=== PATIENT | male | born 1940 | race Caucasian/White ===

== ENCOUNTER 2016-08-15 11:42 | Inpatient (IN) | payer OTHER, MEDICARE ==
--- NOTE | 2016-08-15 13:05 | PDOC ---
History of Present Illness - General History Source: Patient, Family (daughter) Exam Limitations: No Limitations - History of Present Illness Initial Comments: 08/15/16 15:49 The patient is a 76-year-old male, accompanied by daughter, with a significant past medical history of kidney failure, who presents to the emergency department with pain and redness of the left toes. The patient reports he is experiencing pain and redness in his main left toe and left second toe. The patient is concerned about an infection of the toes. As per daughter, the patient is on dialysis 3x per week. The patient denies chest pain, shortness of breath, headache and dizziness. The patient denies fever, chills, nausea, vomit, diarrhea and constipation. The patient urinary complaints. The patient denies trauma. Allergies: NKDA Past surgical history: Angioplasty Social history: Denies smoking, ETOH, or substance use. 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 Martinez <Anamika Mendiola - Last Filed: 08/15/16 15:49> <Volodymyr Parada - Last Filed: 08/15/16 17:09> - General Chief Complaint: Redness To Affected Area Stated Complaint: LT TOE INFECTION Past History <Anamika Mendiola - Last Filed: 08/15/16 15:49> - Past Medical History Cancer: Yes (COLON AND PROSTATE) Cardiac Disorders: Yes (A.FIB) Dialysis: Yes (M-W-F,RT ARM FISTULA) HTN: Yes Psychiatric Problems: Yes (ANXEITY) - Surgical History Abdominal Surgery: Yes (COLON CA) - Psycho/Social/Smoking Cessation Hx Anxiety: No Suicidal Ideation: No Smoking History: Never smoked Have you smoked in the past 12 months: No Information on smoking cessation initiated: No Hx Alcohol Use: No Drug/Substance Use Hx: No Substance Use Type: None <Volodymyr Parada - Last Filed: 08/15/16 17:09> - Past Medical History Allergies/Adverse Reactions: Allergies Allergy/AdvReac Type Severity Reaction Status Date / Time No Known Allergies Allergy Verified 08/15/16 11:51 Home Medications: Ambulatory Orders Alprazolam [Xanax] 0.5 mg PO BID 08/15/16 Aspirin [ASA -] 81 mg PO DAILY 08/15/16 Atenolol [Tenormin -] 25 mg PO DAILY 08/15/16 Docusate Sodium [Colace -] 100 mg PO DAILY 08/15/16 Oxycodone HCl/Acetaminophen [Percocet 5-325 mg Tablet] 1 tab PO Q6H 08/15/16 Sevelamer Carbonate [Renvela] 800 mg PO TID 08/15/16 Trazodone HCl 50 mg PO HS 08/15/16 Vit B Cmplx 3/FA/Vit C/Biotin [Nephro-Louie Rx Tablet] 1 each PO DAILY 08/15/16 Zolpidem Tartrate [Ambien] 10 mg PO HS 08/15/16 Review of Systems - Review of Systems Comments:: 08/15/16 15:50 CONSTITUTIONAL: Absent: fever, chills, diaphoresis, generalized weakness, malaise, loss of appetite HEENT: Absent: rhinorrhea, nasal congestion, throat pain, throat swelling, difficulty swallowing, mouth swelling, ear pain, eye pain, visual changes CARDIOVASCULAR: Absent: chest pain, syncope, palpitations, irregular heart rate, lightheadedness , peripheral edema RESPIRATORY: Absent: cough, shortness of breath, dyspnea with exertion, orthopnea, wheezing, stridor, hemoptysis GASTROINTESTINAL: Absent: abdominal pain, abdominal distension, nausea, vomiting, diarrhea, constipation, melena, hematochezia GENITOURINARY: Absent: dysuria, frequency, urgency, hesitancy, hematuria, flank pain, genital pain MUSCULOSKELETAL: Present: (+) Left toe pain Absent: arthralgia, joint swelling SKIN: Present: (+) Left toe redness Absent: rash, itching, pallor HEMATOLOGIC/IMMUNOLOGIC: Absent: easy bleeding, easy bruising, lymphadenopathy, frequent infections ENDOCRINE: Absent: unexplained weight gain, unexplained weight loss, heat intolerance, cold intolerance NEUROLOGIC: Absent: headache, focal weakness or paresthesias, dizziness, unsteady gait, seizure, mental status changes, bladder or bowel incontinence PSYCHIATRIC: Absent: anxiety, depression, suicidal or homicidal ideation, hallucinations. <Anamika Mendiola - Last Filed: 08/15/16 15:49> *Physical Exam - Vital Signs Last Vital Signs Temp Pulse Resp BP Pulse Ox 97.7 F 88 18 135/55 100 08/15/16 11:52 08/15/16 11:52 08/15/16 11:52 08/15/16 11:52 08/15/16 11:52 - Physical Exam Comments: 08/15/16 15:50 GENERAL: Well developed, well nourished. Awake and alert. In no acute distress. HEENT: Normocephalic, atraumatic. PERRLA, EOMI. No conjunctival pallor. Sclera are non- icteric. Moist mucous membranes. Oropharynx is clear. NECK: Supple. Full ROM. No JVD. Carotid pulses 2+ and symmetric, without bruits. No thyromegaly. No lymphadenopathy. CARDIOVASCULAR: Regular rate and rhythm. No murmurs, rubs, or gallops. PULMONARY: No evidence of respiratory distress. Lungs clear to auscultation bilaterally. No wheezing, rales or rhonchi. ABDOMINAL: Soft. Non-tender. Non-distended. No rebound or guarding. No organomegaly. Normoactive bowel sounds. MUSCULOSKELETAL Normal range of motion at all joints. No bony deformities or tenderness. No CVA tenderness. EXTREMITIES: (+) Left second toe is ischemic rubor. Decreased sensation and decreased movement of the left toes. (+) Weak dorsalis pedis pulse. Weak popliteal pulse. Stronger femoral pulse. Right side is unremarkable. No cyanosis. No clubbing. No edema. No calf tenderness. SKIN: Warm and dry. Normal capillary refill. No rashes. No jaundice. NEUROLOGICAL: Alert, awake, appropriate. Cranial nerves 2-12 intact. No deficits to light touch and temperature in face, upper extremities and lower extremities. No motor deficits in the in face, upper extremities and lower extremities. Normoreflexic in the upper and lower extremities. Normal speech. Toes are downgoing bilaterally. Gait is normal without ataxia. PSYCHIATRIC: Cooperative. Good eye contact. Appropriate mood and affect. <Anamika Mendiola - Last Filed: 08/15/16 15:49> - Vital Signs Last Vital Signs Temp Pulse Resp BP Pulse Ox 97.7 F 88 18 135/55 100 08/15/16 11:52 08/15/16 11:52 08/15/16 11:52 08/15/16 11:52 08/15/16 11:52 <Volodymyr Parada - Last Filed: 08/15/16 17:09> ED Treatment Course - LABORATORY CBC & Chemistry Diagram: 08/15/16 13:24 08/15/16 13:24 - ADDITIONAL ORDERS Additional order review: Laboratory Results 08/15/16 08/15/16 08/15/16 13:42 13:24 13:24 INR 1.06 PTT (Actin FS) 35.0 H Sodium 137 Potassium 4.2 Chloride 98 Carbon Dioxide 28 Anion Gap 11 BUN 21 H Creatinine 2.9 H Creat Clearance w eGFR 21.15 Random Glucose 86 Calcium 9.1 Total Bilirubin 0.6 AST 31 ALT 22 Alkaline Phosphatase 96 Total Protein 6.8 Albumin 3.5 Blood Type A POSITIVE Antibody Screen Negative Spec Expiration Date 08/15/16 13:24 RBC 4.39 MCV 96.1 H MCHC 31.9 L RDW 16.8 H MPV 10.0 Neutrophils % 71.9 Lymphocytes % 15.0 Monocytes % 11.7 H Eosinophils % 1.0 Basophils % 0.4 <Anamika Mendiola - Last Filed: 08/15/16 15:49> - LABORATORY CBC & Chemistry Diagram: 08/15/16 13:24 08/15/16 13:24 <Volodymyr Parada - Last Filed: 08/15/16 17:09> Medical Decision Making - Medical Decision Making 08/15/16 17:[address] Martinez who wants the patient on heparin and he will see the patient next week. <Volodymyr Parada - Last Filed: 08/15/16 17:09> *DC/Admit/Observation/Transfer - Attestations Scribe Attestion: 08/15/16 15:50 Documentation prepared by Anamika Mendiola, acting as manager medical affairs for Volodymyr Parada MD. <Anamika Mendiola - Last Filed: 08/15/16 15:49> - Discharge Dispostion Admit: Yes <Volodymyr Parada - Last Filed: 08/15/16 17:09> Diagnosis at time of Disposition: Ischemia of left lower extremity - Discharge Dispostion Condition at time of disposition: Guarded - Referrals Referrals: Gallo Slater [Primary Care Provider] -
[2016-08-15 13:47] LABS: BASOPHIL 0.4 % (0-2.0); MCH 30.6 pg (25.7-33.7); MCHC 31.9 g/dl (32.0-35.9); MEAN CELL VOLUME 96.1 fl (80-96); NEUTROPHILS 71.9 % (42.8-82.8); PLATELET COUNT 68 K/MM3 (134-434); RDW 16.8 % (11.9-15.9); WHITE BLOOD COUNT 5.2 K/mm3 (4.0-10.0)
[2016-08-15 14:10] LABS: ALBUMIN 3.5 g/dl (3.4-5.0); BILIRUBIN,TOTAL 0.6 mg/dL (0.2-1.0); CALCIUM 9.1 mg/dL (8.5-10.1); CREATININE 2.9 mg/dL (0.7-1.3); TOT PROT 6.8 g/dl (6.4-8.2)
[2016-08-15 14:50] LABS: INR 1.06 (0.82-1.09); PROTHROMBIN TIME (PATIENT) 11.7 SEC (9.98-11.88)
--- NOTE | 2016-08-15 16:54 | PN ---
Progress Note (short form) - Note Progress Note: Renal Consult for ESRD on HD This is a 76 year old Gentleman with PMhx of ESRD on HD (x 1 year), Hypertension , Renal Osteodytrophy who presents with erythema and tenderness of his 1st and 2nd digit on the right food and swelling in his access arm. Pt states that his toes have been tender and swollen for 5-7 days. He received IV Abx in dialysis today but no antibiotics prior to that. Pt also reported a mechanical fall earlier this week and tenderness in his should on the same side of his AVF. He noted that his right arm had been swollen for several days and that he experienced prolonged bleeding today after dialysis. Denies any fever or chills. Apetite is good. No N/V/D. Primary Consulting Sales Executive is Dr. Kenyon. PMhx: as above Allergies: NKDA Family Hx: NC Social Hx: No T/A/D ROS: As per HPI Home Meds: Medication Instructions Recorded Alprazolam [Xanax] 0.5 mg PO BID 08/15/16 Aspirin [ASA -] 81 mg PO DAILY 08/15/16 Atenolol [Tenormin -] 25 mg PO DAILY 08/15/16 Docusate Sodium [Colace -] 100 mg PO DAILY 08/15/16 Oxycodone HCl/Acetaminophen 1 tab PO Q6H 08/15/16 [Percocet 5-325 mg Tablet] Sevelamer Carbonate [Renvela] 800 mg PO TID 08/15/16 Trazodone HCl 50 mg PO HS 08/15/16 Vit B Cmplx 3/FA/Vit C/Biotin 1 each PO DAILY 08/15/16 [Nephro-Louie Rx Tablet] Zolpidem Tartrate [Ambien] 10 mg PO HS 08/15/16 Vital Signs Temperature 97.7 F 08/15/16 11:52 Pulse Rate 88 08/15/16 11:52 Respiratory Rate 18 08/15/16 11:52 Blood Pressure 135/55 08/15/16 11:52 O2 Sat by Pulse Oximetry (%) 100 08/15/16 11:52 Intake & Output 08/12/16 08/13/16 08/14/16 08/15/16 23:59 23:59 23:59 23:59 Weight 175 lb Gen: NAD, awake and alert HEENT: NC/AT, MMM, No JVD CVS: RRR, No M/R Lungs: CTA, no rales or wheeze Abd: Soft NT/ND Ext: Right arm swelling to forearm with hematoma on right shoulder. Trace edema in B/L LE. + erythema on 1st, 2nd and 3rd digits on right foot. peripheal pules weak. Access: Right Arm AVF + thrill and bruit CBC, BMP 08/15/16 13:24 08/15/16 13:24 A/P 76 year old Gentleman with PMhx of ESRD on HD (x 1 year), Hypertension, Renal Osteodytrophy who presents with erythema and tenderness of his 1st and 2nd digit on the right food and swelling in his access arm #LE cellulitis/PVD Doppler US of the LE showed atherosclerotic plaque and stenosis of left superficial femoral artery Vascular Sx eval and traditional vs. CT Angiogram of the LE as per vascular pain control S/p Vanco 1g IV s/p dialysis today #Right ARM swelling/AVF with prolonged bleeding Check Doppler US of upper Ext and AVF r/o stenosis/thrombosis Check x-ray of right shoulder given recent fall #ESRD on Hd completed full HD today as outpatient no indication for further treatment today if pt gets contrast exposure will need further dialysis to preserve renal function #Thrombocytopenia Repeat cbc no indication for platelet transfusion Thank you Will follow Armen Machado DO
[2016-08-15] MEDS ORDERED: HEPARIN - 25,000 UNIT in SODIUM CHLORIDE 495 ML IV SCH (17:15)
--- NOTE | 2016-08-15 17:36 | HP ---
CHIEF COMPLAINT: PCP: Dr. Gallo Slater ([phone]) HISTORY OF PRESENT ILLNESS: This is a 76 year old male resident of the [facility] with a history of HTN, colon ca s/p resection, Afib (taken off of AC by PCP 2 months ago), ESRD on HD M/W/F, and PAD who presented to the ED complaining of left arm pain and left 1st and 2nd toe pain following a fall 10 days ago. He denies fevers/chills or any other systemic symptoms. Toe infection is suspected and he was given Vancomycin with HD today. He denies foot pain or leg pain, and he denies cold/numb sensation. He reports occasional cramping with walking. 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 Smoking: None Alcohol: None Family History: Allergies No Known Allergies Allergy (Verified 08/15/16 11:51) HOME MEDICATIONS: Medication Instructions Recorded Alprazolam [Xanax] 0.5 mg PO BID 08/15/16 Aspirin [ASA -] 81 mg PO DAILY 08/15/16 Atenolol [Tenormin -] 25 mg PO DAILY 08/15/16 Docusate Sodium [Colace -] 100 mg PO DAILY 08/15/16 Oxycodone HCl/Acetaminophen 1 tab PO Q6H 08/15/16 [Percocet 5-325 mg Tablet] Sevelamer Carbonate [Renvela] 800 mg PO TID 08/15/16 Trazodone HCl 50 mg PO HS 08/15/16 Vit B Cmplx 3/FA/Vit C/Biotin 1 each PO DAILY 08/15/16 [Nephro-Louie Rx Tablet] Zolpidem Tartrate [Ambien] 10 mg PO HS 08/15/16 REVIEW OF SYSTEMS CONSTITUTIONAL: Absent: fever, chills, diaphoresis, generalized weakness, malaise, loss of appetite, weight change HEENT: Absent: rhinorrhea, nasal congestion, throat pain, throat swelling, difficulty swallowing, mouth swelling, ear pain, eye pain, visual changes CARDIOVASCULAR: Exercise tolerance 2 blocks Absent: chest pain, syncope, palpitations, lightheadedness, peripheral edema RESPIRATORY: Absent: cough, shortness of breath, dyspnea with exertion, orthopnea, wheezing, stridor, hemoptysis GASTROINTESTINAL: Absent: abdominal pain, abdominal distension, nausea, vomiting, diarrhea, constipation, melena, hematochezia GENITOURINARY: Absent: dysuria, frequency, urgency, hesitancy, hematuria, flank pain, genital pain MUSCULOSKELETAL: Absent: myalgia, arthralgia, joint swelling, back pain, neck pain SKIN: Absent: rash, itching, pallor HEMATOLOGIC/IMMUNOLOGIC: Absent: easy bleeding, easy bruising, lymphadenopathy, frequent infections ENDOCRINE: Absent: unexplained weight gain, unexplained weight loss, heat intolerance, cold intolerance NEUROLOGIC: Absent: headache, focal weakness or paresthesias, dizziness, unsteady gait, seizure, mental status changes, bladder or bowel incontinence PSYCHIATRIC: Absent: anxiety, depression, suicidal or homicidal ideation, hallucinations. PHYSICAL EXAMINATION Vital Signs - 24 hr 08/15/16 11:52 Temperature 97.7 F Pulse Rate 88 Respiratory 18 Rate Blood Pressure 135/55 O2 Sat by Pulse 100 Oximetry (%) GENERAL: Awake, alert, and fully oriented, in no acute distress. EYES: Pupils equal, round and reactive to light, extraocular movements intact, sclera anicteric, conjunctiva clear. No lid lag. EARS, NOSE, THROAT: Ears normal, nares patent, oropharynx clear without exudates. Moist mucous membranes. NECK: Normal range of motion, supple without lymphadenopathy, JVD, or masses. LUNGS: Breath sounds equal, clear to auscultation bilaterally. No wheezes, and no crackles. No accessory muscle use. HEART: Irregular rhythm, normal S1 and S2 without murmur, rub or gallop. ABDOMEN: Soft, nontender, not distended, normoactive bowel sounds, no guarding, no rebound, no masses. No hepatomegaly or splenomegaly. MUSCULOSKELETAL: Limited ROM of right arm due to pain. UPPER EXTREMITIES: 2+ pulses, warm, well-perfused. No cyanosis. No clubbing. Cap refill <2 seconds. No peripheral edema. RUE AVF, +bruit, +thrill. LOWER EXTREMITIES: Warm, well-perfused. No calf tenderness. LLE: 2+ pitting pedal edema. Pulse trace palpable. 1st and second toes erythematous and swollen. Sensation intact. NEUROLOGICAL: Cranial nerves II-XII intact. Normal speech. Normal gait. PSYCHIATRIC: Cooperative. Good eye contact. Appropriate mood and affect. SKIN: Warm, dry, normal turgor, no rashes or lesions noted. Laboratory Results - last 24 hr 08/15/16 08/15/16 08/15/16 13:24 13:24 13:24 WBC 5.2 RBC 4.39 Hgb 13.4 Hct 42.2 MCV 96.1 H MCHC 31.9 L RDW 16.8 H Plt Count 68 L MPV 10.0 Neutrophils % 71.9 Lymphocytes % 15.0 Monocytes % 11.7 H Eosinophils % 1.0 Basophils % 0.4 INR 1.06 PTT (Actin FS) 35.0 H Sodium 137 Potassium 4.2 Chloride 98 Carbon Dioxide 28 Anion Gap 11 BUN 21 H Creatinine 2.9 H Creat Clearance w eGFR 21.15 Random Glucose 86 Calcium 9.1 Total Bilirubin 0.6 AST 31 ALT 22 Alkaline Phosphatase 96 Total Protein 6.8 Albumin 3.5 Blood Type Antibody Screen Spec Expiration Date 08/15/16 13:42 WBC RBC Hgb Hct MCV MCHC RDW Plt Count MPV Neutrophils % Lymphocytes % Monocytes % Eosinophils % Basophils % INR PTT (Actin FS) Sodium Potassium Chloride Carbon Dioxide Anion Gap BUN Creatinine Creat Clearance w eGFR Random Glucose Calcium Total Bilirubin AST ALT Alkaline Phosphatase Total Protein Albumin Blood Type A POSITIVE Antibody Screen Negative Spec Expiration Date ASSESSMENT/PLAN: 76 year old male with severe PAD and left foot pain, suspect infection of 1st and 2nd toes. Problem List - Problem (1) Ischemic leg Assessment/Plan: -Extremity warm and pulses trace palpable, lactic acid is within normal limits at 1.3 -Plt are 68K, do not start heparin or any other antiplatelets/anticoagulants per vascular surgery -Empiric antibiotics for possible infection; Ceftriaxone 1g daily, received Vancomycin with HD today -Pain control -Duplex arterial scan reviewed: bilateral diffuse atheromatous plaque with intimal hyperplasia and atherosclerotic vascular disease, L>R with stenosis suspected in the region of the mid left superficial femoral artery -Discussed with Dr. Martinez: he is away until Thursday. Recommends starting antibiotics, controlling pain. Ischemia is chronic and it is unlikely any acute intervention will be needed. If anything is urgently needed, please call Dr. Celeste Mcknight. -Podiatry evaluation Code(s): I99.8 - OTHER DISORDER OF CIRCULATORY SYSTEM (2) Humeral surgical neck fracture Assessment/Plan: -Sling -Pain control (on oxycodone 5mg as outpatient without relief; will increase to 10mg) -Will consult orthopedics, but expect non-operative management Code(s): S42.213A - UNSP DISP FX OF SURGICAL NECK OF UNSP HUMERUS, INIT (3) ESRD (end stage renal disease) Assessment/Plan: -Next dialysis Thursday -Renal dose medications -Continue Renvela, Nephrovite -Renal following Code(s): N18.6 - END STAGE RENAL DISEASE (4) HTN (hypertension) Assessment/Plan: -At goal -Continue Tenormin Code(s): I10 - ESSENTIAL (PRIMARY) HYPERTENSION (5) Thrombocytopenia Assessment/Plan: -No baseline available -No history of same per patient, but he does note that he had prolonged bleeding after HD today and required extended application of pressure to control it -Follow CBC Code(s): D69.6 - THROMBOCYTOPENIA, UNSPECIFIED (6) DVT prophylaxis Assessment/Plan: -No chemical ppx (thrombocytopenia) -No mechanical ppx (limb ischemia) -Ambulation Code(s): LHS2462 - Visit type - Emergency Visit Emergency Visit: Yes ED Registration Date: 08/15/16 Care time: The patient presented to the Emergency Department on the above date and was hospitalized for further evaluation of their emergent condition. - New Patient This patient is new to me today: Yes Date on this admission: 08/16/16 - Critical Care Critical Care patient: No
[2016-08-15] MEDS ORDERED: CEFTRIAXONE 1 GM in DEXTROSE 5%-WATER - 50 ML IVPB SCH (17:45)
[2016-08-15] MEDS ORDERED: OXYCODONE/APAP 5/325MG COMBO TABLET PO SCH (17:45)
[2016-08-15] MEDS ORDERED: CEFTRIAXONE 50 ML ONE (19:01)
[2016-08-15] MEDS: cefTRIAXone 1 GM/50 ML BAG (PRE-DOCKED) IVPB SCH (19:14)
[2016-08-15] MEDS: ALPRAZolam 0.25 MG TABLET PO SCH (21:31)
[2016-08-15] MEDS: traZODone HCL 50 MG TABLET (FP) PO SCH (21:31)
[2016-08-15] MEDS ORDERED: ZOLPIDEM TARTRATE 5 MG TABLET PO PRN (22:00)
[2016-08-15 23:43] VITALS: BMI 23.8
[2016-08-16] MEDS ORDERED: oxyCODONE HCL 5 MG TABLET PO SCH
[2016-08-16] MEDS: ACETAMINOPHEN 325 MG TABLET (FP) PO SCH ×5 (00:28→23:03)
[2016-08-16] MEDS: oxyCODONE HCL 5 MG TABLET PO SCH ×5 (00:28→23:02)
[2016-08-16] MEDS: DOCUSATE SODIUM 100 MG CAPSULE (FP) PO SCH (09:08)
[2016-08-16] MEDS: VITAMIN B COMP W-C 1 EA TABLET PO SCH (09:08)
[2016-08-16] MEDS: ALPRAZolam 0.25 MG TABLET PO SCH ×2 (09:08→21:48)
[2016-08-16] MEDS: cefTRIAXone 1 GM/50 ML BAG (PRE-DOCKED) IVPB SCH (09:08)
[2016-08-16] MEDS: ATENOLOL 25 MG TABLET (FP) PO SCH (09:08)
[2016-08-16] MEDS: SEVELAMER CARBONATE 800 MG TAB (FP) PO SCH ×3 (09:08→18:27)
--- NOTE | 2016-08-16 09:31 | PN ---
Progress Note (short form) - Note Progress Note: Pt seen and examined. He is a 76 yo R hand dom Male, 10 days s/p fall. Complains of mild pain right shoulder. In sling. RUE is NVI. Full ROM of the c-spine, elbow, forearm, wrist, fingers. No deformity at the shoulder, no sig swelling or ecchymosis Xrays show a nondisplaced fracture of the right proximal humerus, at the surgical neck. Imp As above Rec No surgery necessary. Rec sling, no weight bearing, should do ROM exercises for the elbow, wrist , fingers. not jazmin shoulder. No orthopedic reason to be in the hospital. Should DC today and f/u as an out pt in 2 weeks.
[2016-08-16 10:39] LABS: BASOPHIL 0.5 % (0-2.0); MCH 31.2 pg (25.7-33.7); MCHC 32.2 g/dl (32.0-35.9); MEAN CELL VOLUME 96.8 fl (80-96); MEAN PLT VOLUME 9.5 fl (7.5-11.1); PLATELET COUNT 62 K/MM3 (134-434); WHITE BLOOD COUNT 3.9 K/mm3 (4.0-10.0)
[2016-08-16 11:18] LABS: BILIRUBIN,TOTAL 0.5 mg/dL (0.2-1.0); CALCIUM 9.4 mg/dL (8.5-10.1); CREATININE 4.4 mg/dL (0.7-1.3); MAGNESIUM 2.4 mg/dL (1.8-2.4); PHOSPHOROUS 4.2 mg/dL (2.5-4.9); TOT PROT 5.7 g/dl (6.4-8.2)
--- NOTE | 2016-08-16 13:07 | PN ---
Progress Note (short form) - Note Progress Note: Renal Follow up for ESRD on HD Pt seen and examined at the bedside No acute complaints no sob, chest pain, fever or chills Vital Signs Temperature 97.6 F 08/16/16 06:00 Pulse Rate 96 H 08/16/16 06:00 Respiratory Rate 20 08/16/16 06:00 Blood Pressure 148/85 08/16/16 06:00 O2 Sat by Pulse Oximetry (%) 98 08/15/16 21:00 Intake & Output 08/13/16 08/14/16 08/15/16 08/16/16 23:59 23:59 23:59 23:59 Intake Total 300 500 Balance 300 500 Weight 161 lb Gen: NAD, awake and alert HEENT: NC/AT, MMM, No JVD CVS: RRR, No M/R Lungs: CTA, no rales or wheeze Abd: Soft NT/ND Ext: Rigtht arm swelling improved Access: Right Arm AVF + thrill and bruit CBC, BMP 08/16/16 10:15 08/16/16 10:15 Current Medications Acetaminophen (Tylenol -) 325 mg PO Q6HPO [facility] Last Admin: 08/16/16 12:37 Dose: 325 mg Alprazolam (Xanax -) 0.5 mg PO BID [facility] Last Admin: 08/16/16 09:08 Dose: 0.5 mg Atenolol (Tenormin -) 25 mg PO DAILY [facility] Last Admin: 08/16/16 09:08 Dose: 25 mg Ceftriaxone Sodium (Rocephin 1gm Ivpb (Pre-Docked)) 1 gm IVPB DAILY [facility] Last Admin: 08/16/16 09:08 Dose: 1 gm Docusate Sodium (Colace -) 100 mg PO DAILY [facility] Last Admin: 08/16/16 09:08 Dose: 100 mg Multivit/Ca Carb/B Cmplx/FA/Prenat (Nephro-Louie -) 1 tablet PO DAILY [facility] Last Admin: 08/16/16 09:08 Dose: 1 tablet Oxycodone HCl (Roxicodone -) 10 mg PO Q6HPO [facility] Last Admin: 08/16/16 12:36 Dose: 10 mg Polyethylene Glycol (Miralax (For Daily Use) -) 17 gm PO DAILY [facility] Sevelamer Carbonate (Renvela -) 800 mg PO TIDCM [facility] Last Admin: 08/16/16 12:38 Dose: 800 mg Trazodone HCl (Desyrel -) 50 mg PO HS [facility] Last Admin: 08/15/16 21:31 Dose: 50 mg Zolpidem Tartrate (Ambien -) 5 mg PO HS PRN A/P 76 year old Gentleman with PMhx of ESRD on HD (x 1 year), Hypertension, Renal Osteodytrophy who presents with erythema and tenderness of his 1st and 2nd digit on the right food and swelling in his access arm #LE cellulitis/PVD Doppler US of the LE showed atherosclerotic plaque and stenosis of left superficial femoral artery Vascular Sx eval traditional vs. 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
[2016-08-16] MEDS: POLYETHYLENE GLYCOL 3350 119 GM BTL PO SCH (14:30)
--- NOTE | 2016-08-16 15:33 | PN ---
Physical Exam: SUBJECTIVE: Patient seen and examined. He is c/o he has no had a BM in4 days. He denies fever, chills. OBJECTIVE: Vital Signs Period Temp Pulse Resp BP Sys/Medina Pulse Ox Last 24 Hr 97.5 F-98.1 F 78-99 18-20 114-148/56-85 97-98 PE Neuro: alert, awake, cn 2-12intact Pulm: CTAB CV: s1 s2 irregular rate, + 3/6 systolic murmur Abd: s nt + bs Ext: RUE AVF + thrill, RUE in sling, non tender, L foot great toe bright erythema, 2nd digit ischemia, + DP pulse, foot is warm Laboratory Results - last 24 hr 08/15/16 08/16/16 08/16/16 22:00 10:15 10:15 WBC 3.9 L RBC 4.10 Hgb 12.8 Hct 39.7 MCV 96.8 H MCHC 32.2 RDW 17.0 H Plt Count 62 L MPV 9.5 Neutrophils % 71.0 Lymphocytes % 17.6 Monocytes % 9.9 Eosinophils % 1.0 Basophils % 0.5 Sodium 135 L Potassium 3.8 Chloride 100 Carbon Dioxide 28 Anion Gap 7 L BUN 35 H D Creatinine 4.4 H D Creat Clearance w eGFR 13.07 Random Glucose 136 H D Calcium 9.4 Phosphorus 4.2 Magnesium 2.4 Total Bilirubin 0.5 AST 14 L D ALT 18 Alkaline Phosphatase 79 Total Protein 5.7 L Albumin 3.0 L Blood Type A POSITIVE Active Medications Generic Name Dose Route Start Last Admin Trade Name Freq PRN Reason Stop Dose Admin Acetaminophen 325 mg 08/16/16 00:00 08/16/16 12:37 Tylenol - PO 325 mg Q6HPO MARCUS Administration Alprazolam 0.5 mg 08/15/16 22:00 08/16/16 09:08 Xanax - PO 0.5 mg BID MARCUS Administration Atenolol 25 mg 08/16/16 10:00 08/16/16 09:08 Tenormin - PO 25 mg DAILY MARCUS Administration Ceftriaxone Sodium 1 gm 08/15/16 18:00 08/16/16 09:08 Rocephin 1gm Ivpb (Pre-Docked) IVPB 1 gm DAILY MARCUS Administration Docusate Sodium 100 mg 08/16/16 10:00 08/16/16 09:08 Colace - PO 100 mg DAILY MARCUS Administration Multivit/Ca Carb/B Cmplx/FA/Prenat 1 tablet 08/16/16 10:00 08/16/16 09:08 Nephro-Louie - PO 1 tablet DAILY MARCUS Administration Oxycodone HCl 10 mg 08/16/16 00:00 08/16/16 12:36 Roxicodone - PO 10 mg Q6HPO MARCUS Administration Polyethylene Glycol 17 gm 08/16/16 13:00 08/16/16 14:30 Miralax (For Daily Use) - PO 17 gm DAILY MARCUS Administration Sevelamer Carbonate 800 mg 08/16/16 08:00 08/16/16 12:38 Renvela - PO 800 mg TIDCM MARCUS Administration Trazodone HCl 50 mg 08/15/16 22:00 08/15/16 21:31 Desyrel - PO 50 mg HS MARCUS Administration Zolpidem Tartrate 5 mg 08/15/16 22:00 Ambien - PO HS PRN Imaging: -Duplex arterial scan reviewed: bilateral diffuse atheromatous plaque with intimal hyperplasia and atherosclerotic vascular disease, L>R with stenosis suspected in the region of the mid left superficial femoral artery Assessment: 76 year old male with severe PAD and left foot pain, suspect infection of 1st and 2nd toes. Plan: 1. Ischemic leg/LE cellulitis - L superficial femoral artery stenosis on duplex - Podiatry to see pt tomorrow - ID to see pt - Continue ceftriaxone - pt denies pain 2. Humeral surgical neck fracture - Seen by ortho, no surgical intervention, outpt follow up in 2 weeks - Maintain sling - ROM exercises to wrist/elbow/fingers; not the shoulder - Pain control (on oxycodone 5mg as outpatient without relief; will increase to 10mg) 3. Chronic ESRD HD MWF - Check vanco level in am; s/p vanco yesterday - HD Thursday - Continue Renvela, Nephrovite - Renal following 4. HTN - At goal - Continue Tenormin 5. Thrombocytopenia - Plts trace decrease, will monitor, as of now no signs of bleeding - No history of same per patient, but he does note that he had prolonged bleeding after HD today and required extended application of pressure to control it - Follow CBC 6. DVT prophylaxis - No chemical ppx (thrombocytopenia) - No mechanical ppx (limb ischemia) Visit type - Emergency Visit Emergency Visit: Yes ED Registration Date: 08/15/16 Care time: The patient presented to the Emergency Department on the above date and was hospitalized for further evaluation of their emergent condition. - New Patient This patient is new to me today: Yes Date on this admission: 08/16/16 - Critical Care Critical Care patient: No
[2016-08-16] MEDS: SENNOSIDES 8.6MG TABLET (FP) PO SCH (21:47)
[2016-08-16] MEDS: traZODone HCL 50 MG TABLET (FP) PO SCH (21:47)
[2016-08-17] MEDS: oxyCODONE HCL 5 MG TABLET PO SCH ×4 (06:08→23:31)
[2016-08-17] MEDS: ACETAMINOPHEN 325 MG TABLET (FP) PO SCH ×4 (06:09→23:32)
[2016-08-17 08:43] LABS: CALCIUM 9.1 mg/dL (8.5-10.1); CREATININE 5.3 mg/dL (0.7-1.3)
[2016-08-17] MEDS: SEVELAMER CARBONATE 800 MG TAB (FP) PO SCH ×3 (08:54→18:11)
[2016-08-17] MEDS: VITAMIN B COMP W-C 1 EA TABLET PO SCH (08:59)
[2016-08-17] MEDS: DOCUSATE SODIUM 100 MG CAPSULE (FP) PO SCH (08:59)
[2016-08-17] MEDS: cefTRIAXone 1 GM/50 ML BAG (PRE-DOCKED) IVPB SCH (09:00)
[2016-08-17] MEDS: POLYETHYLENE GLYCOL 3350 119 GM BTL PO SCH (09:00)
[2016-08-17] MEDS: ATENOLOL 25 MG TABLET (FP) PO SCH (09:00)
[2016-08-17] MEDS: ALPRAZolam 0.25 MG TABLET PO SCH ×2 (09:00→21:15)
--- NOTE | 2016-08-17 10:09 | CONSULT ---
Consult - text type - Consultation Consultation Note: Podiatry Consultation: 76 year old M presents to hospital from [facility] for "L foot infection", redness to forefoot. Patient does have history of PVD, was scheduled to see Dr. Martinez. Does report some cramping and pain during ambulation. Denies F /V/N/C/SOB/CP. PMHx: HTN, AFib on AC, Colon CA s/p resection, ESRD on HD Meds: noted in chart PSHx: s/p colon resection ALL: NKMA MILAN: L foot: pedal pulses non-palpable, TG wnl, CFT delayed to 1st, 2nd toes. There is ischemic erythema to the forefoot, particularly the 1st and 2nd toes. There are superficial linear necrotic wounds on the distal tips of 1st and 2nd toes. There is no deep probing, no drainage, no fluctuance, no soft tissue crepitus, no signs of acute infection. No streaking cellulitis nor lymphangitis. A. Duplex: suspicious for SFA occlusion Imp: 76 year old PVD M with L forefoot ischemia The toes are dry and stable. I would recommend close observation. I do not suspect condition will worsen while patient is here in the hospital. Patient is scheduled to follow up with Dr. Martinez for vascular options. Once vascular evaluates, I will manage [facility], . No acute intervention while hospitalized. Thank you for the courtesy of this consultation. Ivon Campbell DPM
--- NOTE | 2016-08-17 13:44 | PN ---
Progress Note (short form) - Note Progress Note: ID Consult dictated Ischemic toes L foot Possible secondary cellulitis ESRD Continue ceftriaxone Redose vancomycin
[2016-08-17] MEDS ORDERED: VANCOMYCIN 1 GRAM (PRE-DOCKED) 250 ML IVPB ONE (13:45)
--- NOTE | 2016-08-17 14:43 | PN ---
Physical Exam: SUBJECTIVE: Patient seen and examined. He offers no complaints, he says his foot has looked the same for awhile. Discussed plan w/ daughter. OBJECTIVE: Vital Signs Period Temp Pulse Resp BP Sys/Medina Pulse Ox Last 24 Hr 97.5 F-97.9 F 69-81 18-20 119-144/58-77 95 PE Neuro: alert, awake, cn 2-12intact Pulm: CTAB CV: s1 s2 irregular rate, + 3/6 systolic murmur Abd: s nt + bs Ext: RUE AVF + thrill, RUE in sling, non tender, erythema to all front foot today, 2nd digit necrosis , + DP pulse, foot is warm Laboratory Results - last 24 hr 08/17/16 06:35 Sodium 134 L Potassium 4.1 Chloride 97 L Carbon Dioxide 27 Anion Gap 10 BUN 48 H D Creatinine 5.3 H D Random Glucose 83 D Calcium 9.1 Vancomycin Trough 8.303 Active Medications Generic Name Dose Route Start Last Admin Trade Name Freq PRN Reason Stop Dose Admin Acetaminophen 325 mg 08/16/16 00:00 08/17/16 12:19 Tylenol - PO 325 mg Q6HPO MARCUS Administration Alprazolam 0.5 mg 08/15/16 22:00 08/17/16 09:00 Xanax - PO 0.5 mg BID MARCUS Administration Atenolol 25 mg 08/16/16 10:00 08/17/16 09:00 Tenormin - PO 25 mg DAILY MARCUS Administration Ceftriaxone Sodium 1 gm 08/15/16 18:00 08/17/16 09:00 Rocephin 1gm Ivpb (Pre-Docked) IVPB 1 gm DAILY MARCUS Administration Docusate Sodium 100 mg 08/16/16 10:00 08/17/16 08:59 Colace - PO 100 mg DAILY MARCUS Administration Vancomycin HCl 250 mls @ 200 mls/hr 08/17/16 13:45 08/17/16 14:16 Vancomycin (Pre-Docked) IVPB 08/17/16 14:59 200 mls/hr ONCE ONE Administration Multivit/Ca Carb/B Cmplx/FA/Prenat 1 tablet 08/16/16 10:00 08/17/16 08:59 Nephro-Louie - PO 1 tablet DAILY MARCUS Administration Oxycodone HCl 10 mg 08/16/16 00:00 08/17/16 12:18 Roxicodone - PO 10 mg Q6HPO MARCUS Administration Polyethylene Glycol 17 gm 08/16/16 13:00 08/17/16 09:00 Miralax (For Daily Use) - PO 17 gm DAILY MARCUS Administration Senna 1 tab 08/16/16 22:00 08/16/16 21:47 Senna - PO 1 tab HS MARCUS Administration Sevelamer Carbonate 800 mg 08/16/16 08:00 08/17/16 12:18 Renvela - PO 800 mg TIDCM MARCUS Administration Trazodone HCl 50 mg 08/15/16 22:00 08/16/16 21:47 Desyrel - PO 50 mg HS MARCUS Administration Zolpidem Tartrate 5 mg 08/15/16 22:00 Ambien - PO HS PRN Imaging: -Duplex arterial scan reviewed: bilateral diffuse atheromatous plaque with intimal hyperplasia and atherosclerotic vascular disease, L>R with stenosis suspected in the region of the mid left superficial femoral artery Assessment: 76 year old male with pmhx HTN, colon ca s/p resection, Afib (taken off of AC by PCP 2 months ago), ESRD on HD M//, and severe PAD and left foot pain admitted with suspect infection of 1st and 2nd toes. Plan: 1. Ischemic leg/LE cellulitis - L superficial femoral artery stenosis on duplex - Redose vanco - Continue ceftriaxone (day 3) - Continue ceftriaxone - Pt will need to see Dr. Martinez when he returns Thursday - Podiatry/ID input appreciated 2. Humeral surgical neck fracture - Seen by ortho, no surgical intervention, outpt follow up in 2 weeks - Maintain sling - ROM exercises to wrist/elbow/fingers; not the shoulder - Pain control (on oxycodone 5mg as outpatient without relief; will increase to 10mg) 3. Chronic ESRD HD MWF - HD tomorrow - Continue Renvela, Nephrovite - Renal following, pt goes [facility] 4. HTN - At goal - Continue Tenormin 5. Thrombocytopenia - Plts trace decrease, will monitor, as of now no signs of bleeding - No history of same per patient, but he does note that he had prolonged bleeding after HD today and required extended application of pressure to control it - Follow CBC 6. DVT prophylaxis - No chemical ppx (thrombocytopenia) - No mechanical ppx (limb ischemia) Visit type - Emergency Visit Emergency Visit: Yes ED Registration Date: 08/15/16 Care time: The patient presented to the Emergency Department on the above date and was hospitalized for further evaluation of their emergent condition. - New Patient This patient is new to me today: No - Critical Care Critical Care patient: No
--- NOTE | 2016-08-17 15:29 | CONS ---
DATE OF CONSULTATION: DATE OF DICTATION: 08/17/2016 The patient is a 76-year-old male, history of end-stage renal disease, on hemodialysis, evaluated for possible cellulitis of the left foot. The patient presented with worsening pain, swelling and erythema of his left great and 2nd toes. He was seen in the emergency room. An arterial Doppler was performed and showed stenosis of the superficial femoral artery, left greater than right. He was empirically treated with ceftriaxone and vancomycin for possible cellulitis. The patient reports being seen by a agriculture internship approximately 10 days prior to his admission. He had had an ingrown toenail on his left great toe and the toenail was trimmed. He denied any erythema at that time. No purulent drainage was reported. He denies any associated fever or chills. The patient resides in a group home facility. He recently fell, sustaining trauma to his right upper extremity and resulting in a fracture of the right humeral head. Past medical history positive for end-stage renal disease, on hemodialysis, atrial fibrillation, hypertension. PAST SURGICAL HISTORY: Status post colon cancer resection, angioplasty. No known allergies. Medications include Tylenol, ceftriaxone, vancomycin, trazodone, Ambien, Xanax, Tenormin, Colace, oxycodone. SOCIAL HISTORY: He resides in a group home facility. He is a nonsmoker, nondrinker. SYSTEMS REVIEW: Neurologic: No loss of consciousness, seizure activity, focal weakness. Cardiac: Negative chest pain or palpitations. Respiratory: Negative cough or sputum production. Gastrointestinal: Negative vomiting or diarrhea. Genitourinary: End-stage renal disease, on hemodialysis. LABORATORY DATA: White count 3.9, hematocrit 39.7, platelet count 62, BUN 48, creatinine 5.3, vancomycin trough 8.3. PHYSICAL EXAMINATION: General: He is awake and alert. He is not acutely toxic appearing. Vital Signs: Temperature 97.6. Blood pressure 126/66. Pulse 69, regular. Respiration 20 per minute. Eyes: Sclerae anicteric. Heart Sounds: Regular. S1, S2. Lungs: Clear. Abdomen: Soft, nontender. Extremities: Examination of the left lower extremity, there is hyperemia present on the left great 2nd and 3rd toes extending to the dorsum of the foot. There is no warmth. Slight tenderness is elicited. There is dry ulceration present at the tip of the left great toe and left 2nd toe. No purulent drainage is noted. IMPRESSION: 1. Ischemic toes, left foot. 2. Peripheral vascular disease. 3. Possible secondary cellulitis of the left foot. 4. End-stage renal disease, on hemodialysis. Will continue ceftriaxone and re-dose vancomycin. Vascular Surgery evaluation. Case discussed with family members present at the time of examination. Thank you for the kind referral. NAT CAMARENA M.D. [id number]
[2016-08-17] MEDS: SENNOSIDES 8.6MG TABLET (FP) PO SCH (21:15)
[2016-08-17] MEDS: traZODone HCL 50 MG TABLET (FP) PO SCH (21:15)
[2016-08-18] MEDS: ACETAMINOPHEN 325 MG TABLET (FP) PO SCH ×3 (06:25→17:07)
[2016-08-18] MEDS: oxyCODONE HCL 5 MG TABLET PO SCH ×3 (06:25→17:08)
--- NOTE | 2016-08-18 08:52 | PN ---
Progress Note (short form) - Note Progress Note: Renal Follow up for ESRD on HD Pt seen and examined during dialysis BP 148/78, Goal UF is 2L AVF with good function pt without complaints Vital Signs Temperature 98.0 F 08/18/16 06:00 Pulse Rate 78 08/18/16 06:00 Respiratory Rate 22 08/18/16 06:00 Blood Pressure 148/74 08/18/16 06:00 O2 Sat by Pulse Oximetry (%) 95 08/17/16 21:00 Intake & Output 08/15/16 08/16/16 08/17/16 08/18/16 23:59 23:59 23:59 23:59 Intake Total 300 1457 1740 Output Total 0 Balance 300 1457 1740 0 Weight 161 lb 161 lb 3 oz 166 lb Gen: NAD, awake and alert CVS: RRR, No M/R Lungs: CTA, no rales or wheeze Abd: Soft NT/ND Ext: Rigtht arm swelling improved, Foot in dressing Access: Right Arm AVF + thrill and bruit CBC, BMP Todays labs pending 08/16/16 10:15 08/17/16 06:35 Current Medications Acetaminophen (Tylenol -) 325 mg PO Q6HPO [facility] Last Admin: 08/18/16 06:25 Dose: 325 mg Alprazolam (Xanax -) 0.5 mg PO BID [facility] Last Admin: 08/17/16 21:15 Dose: 0.5 mg Atenolol (Tenormin -) 25 mg PO DAILY [facility] Last Admin: 08/17/16 09:00 Dose: 25 mg Ceftriaxone Sodium (Rocephin 1gm Ivpb (Pre-Docked)) 1 gm IVPB DAILY [facility] Last Admin: 08/17/16 09:00 Dose: 1 gm Docusate Sodium (Colace -) 100 mg PO DAILY [facility] Last Admin: 08/17/16 08:59 Dose: 100 mg Multivit/Ca Carb/B Cmplx/FA/Prenat (Nephro-Louie -) 1 tablet PO DAILY [facility] Last Admin: 08/17/16 08:59 Dose: 1 tablet Oxycodone HCl (Roxicodone -) 10 mg PO Q6HPO [facility] Last Admin: 08/18/16 06:25 Dose: 10 mg Polyethylene Glycol (Miralax (For Daily Use) -) 17 gm PO DAILY [facility] Last Admin: 08/17/16 09:00 Dose: 17 gm Senna (Senna -) 1 tab PO HS [facility] Last Admin: 08/17/16 21:15 Dose: 1 tab Sevelamer Carbonate (Renvela -) 800 mg PO TIDCM [facility] Last Admin: 08/17/16 18:11 Dose: 800 mg Trazodone HCl (Desyrel -) 50 mg PO HS [facility] Last Admin: 08/17/16 21:15 Dose: 50 mg Zolpidem Tartrate (Ambien -) 5 mg PO HS PRN A/P 76 year old Gentleman with PMhx of ESRD on HD (x 1 year), Hypertension, Renal Osteodytrophy who presents with erythema and tenderness of his 1st and 2nd digit on the right food and swelling in his access arm #ESRD on Hd Tolerating HD well today Goal UF is 2L #LE cellulitis/PVD Doppler US of the LE showed atherosclerotic plaque and stenosis of left superficial femoral artery Vascular Sx eval pending traditional vs. CT Angiogram of the LE as per vascular pain control Vanco dosed by levels on Ceftriaxone curently Check vanco level in aM #Right ARM swelling/AVF with prolonged bleeding Fracture of humerus noted Ortho note appreciated no stenosis on AVF arm swelling improved - likely caused by fracture #Thrombocytopenia Plt counts remain low no heparin with HD work up as per primary Armen Machado DO
[2016-08-18 09:00] LABS: MCH 30.9 pg (25.7-33.7); MCHC 32.3 g/dl (32.0-35.9); MEAN CELL VOLUME 95.6 fl (80-96); MEAN PLT VOLUME 10.7 fl (7.5-11.1); PLATELET COUNT 62 K/MM3 (134-434); RDW 16.9 % (11.9-15.9); WHITE BLOOD COUNT 5.1 K/mm3 (4.0-10.0)
[2016-08-18] MEDS ORDERED: VANCOMYCIN 1,000 MG in DEXTROSE 5%-WATER - 250 ML IVPB ONE (09:00)
[2016-08-18] MEDS: SEVELAMER CARBONATE 800 MG TAB (FP) PO SCH ×3 (09:23→17:07)
[2016-08-18 09:33] LABS: ALBUMIN 2.9 g/dl (3.4-5.0); BILIRUBIN,TOTAL 0.5 mg/dL (0.2-1.0); CALCIUM 8.1 mg/dL (8.5-10.1); CREATININE 3.4 mg/dL (0.7-1.3); PHOSPHOROUS 2.1 mg/dL (2.5-4.9); TOT PROT 5.5 g/dl (6.4-8.2)
--- NOTE | 2016-08-18 10:01 | PN ---
Physical Exam: SUBJECTIVE: Patient was resting in the bed, states he is very tired after dialysis today. States he has pain on left foot only if there is pressure applied, otherwise no pain. OBJECTIVE: Vital Signs Period Temp Pulse Resp BP Sys/Medina Pulse Ox Last 24 Hr 97.5 F-98.0 F 56-87 18-22 114-167/47-74 95 GENERAL: Awake, alert, and fully oriented EYES: Pupils equal, round and reactive to light ENT: Ears normal, nares patent, Moist mucous membranes. NECK: Normal range of motion, supple without lymphadenopathy LUNGS: Breath sounds equal, clear to auscultation bilaterally. No accessory muscle use. HEART: heart rate irregular. ABDOMEN: Soft, nontender, not distended, normoactive bowel sounds MUSCULOSKELETAL: Right arm sling secondaryt to non displaced fracture of right proximal humerus at surgical neck UPPER EXTREMITIES: right ankle with +1 pitting edema, left foot + 2 pitting edema. Left 1st and 2nd toes +erythema + edema. NEUROLOGICAL: Normal speech. Gait not observed PSYCHIATRIC: Cooperative. Good eye contact. Laboratory Results - last 24 hr 08/17/16 08/18/16 08/18/16 06:35 07:00 07:00 WBC 5.1 D RBC 4.15 Hgb 12.8 Hct 39.7 MCV 95.6 MCHC 32.3 RDW 16.9 H Plt Count 62 L MPV 10.7 D Sodium 140 Potassium 3.3 L Chloride 103 Carbon Dioxide 27 Anion Gap 10 BUN 34 H D Creatinine 3.4 H D Creat Clearance w eGFR 17.60 Random Glucose 152 H D Calcium 8.1 L Phosphorus 2.1 L D Total Bilirubin 0.5 AST 16 ALT 24 D Alkaline Phosphatase 90 Total Protein 5.5 L Albumin 2.9 L Vancomycin Trough 8.303 08/18/16 07:00 WBC RBC Hgb Hct MCV MCHC RDW Plt Count MPV Sodium Potassium Chloride Carbon Dioxide Anion Gap BUN Creatinine Creat Clearance w eGFR Random Glucose Calcium Phosphorus Total Bilirubin AST ALT Alkaline Phosphatase Total Protein Albumin Vancomycin Trough 15.501 H* D Active Medications Generic Name Dose Route Start Last Admin Trade Name Freq PRN Reason Stop Dose Admin Acetaminophen 325 mg 08/16/16 00:00 08/18/16 06:25 Tylenol - PO 325 mg Q6HPO MARCUS Administration Alprazolam 0.5 mg 08/15/16 22:00 08/17/16 21:15 Xanax - PO 0.5 mg BID MARCUS Administration Atenolol 25 mg 08/16/16 10:00 08/17/16 09:00 Tenormin - PO 25 mg DAILY MARCUS Administration Ceftriaxone Sodium 1 gm 08/15/16 18:00 08/17/16 09:00 Rocephin 1gm Ivpb (Pre-Docked) IVPB 1 gm DAILY MARCUS Administration Docusate Sodium 100 mg 08/16/16 10:00 08/17/16 08:59 Colace - PO 100 mg DAILY MARCUS Administration Multivit/Ca Carb/B Cmplx/FA/Prenat 1 tablet 08/16/16 10:00 08/17/16 08:59 Nephro-Louie - PO 1 tablet DAILY MARCUS Administration Oxycodone HCl 10 mg 08/16/16 00:00 08/18/16 06:25 Roxicodone - PO 10 mg Q6HPO MARCUS Administration Polyethylene Glycol 17 gm 08/16/16 13:00 08/17/16 09:00 Miralax (For Daily Use) - PO 17 gm DAILY MARCUS Administration Senna 1 tab 08/16/16 22:00 08/17/16 21:15 Senna - PO 1 tab HS MARCUS Administration Sevelamer Carbonate 800 mg 08/16/16 08:00 08/18/16 09:23 Renvela - PO Not Given TIDCM MARCUS Trazodone HCl 50 mg 08/15/16 22:00 08/17/16 21:15 Desyrel - PO 50 mg HS MARCUS Administration Zolpidem Tartrate 5 mg 08/15/16 22:00 Ambien - PO HS PRN ASSESSMENT/PLAN: Patient is a 76 year old male with a significant past medical history of ESRD ( on outpatient dialysis on MWF) hypertension and renal osteodytrophy. He presented to the ED on 08/15/2016 with erythema and tenderness of his left foot 1st and 2nd digit. He also presented with swelling in his AV access arm s/p mechanical fall earlier in the week. He noted that his right arm had been swollen for several days. He denies any fever, chills or any other discomfort. ID: Left foot 1st and 2nd toe cellulitis/ischemia - acute Assessment/Plan: Foot xray 08/15/2016 with no evidence of osteomylelitis 1st and 2nd toe with erythema and edema On Ceftriaxone 1gram daily as per ID Pain managed with Oxycodeone 10mg q6 PRN Podiatry following Muscular/Skeletal: Left Humeral fracture - s/p fall @ home Assessment/Plan: Shoulder Xray 08/15/2016 shows slightly displaced humeral neck fracture Pain managed with oxycodone 10mg q6 PRN As per Ortho: No surgery, continue sling and NWB right arm. GI: End Stage Renal Disease - chronic Assessment/Plan: Dialysis Thursday, , Thursday Tolerated HD today Renal dosed medications Renal following Cardiology: Hypertension - chronic Assessment/Plan: Controlled on Atenolol 10 mg daily Monitor BPs Hematology: Thrombocytopenia - acute vs chronic Assessment/Plan: Likely chronic, no prior labs to compare Bleeding precautions, anticoagulation contraindicated F.E.N. Fluids: Tolerating PO Electroltytes: Hyponatremia: per renal Nutrition: Renal diet Prophylaxis: DVT: Contraindicated secondary to thrombocytopenia, GI: Colace, Senna PT Consult Visit type - Emergency Visit Emergency Visit: Yes ED Registration Date: 08/15/16 Care time: The patient presented to the Emergency Department on the above date and was hospitalized for further evaluation of their emergent condition. - New Patient This patient is new to me today: Yes Date on this admission: 08/19/16 - Critical Care Critical Care patient: No - Discharge Referral Referred to [facility] No
[2016-08-18] MEDS: VITAMIN B COMP W-C 1 EA TABLET PO SCH (11:04)
[2016-08-18] MEDS: POLYETHYLENE GLYCOL 3350 119 GM BTL PO SCH (11:05)
[2016-08-18] MEDS: cefTRIAXone 1 GM/50 ML BAG (PRE-DOCKED) IVPB SCH (11:05)
[2016-08-18] MEDS: DOCUSATE SODIUM 100 MG CAPSULE (FP) PO SCH (11:05)
[2016-08-18] MEDS: ALPRAZolam 0.25 MG TABLET PO SCH ×2 (11:05→21:54)
[2016-08-18] MEDS ORDERED: PT OWN MED DRAWER 7, Y5N ONE (11:11)
[2016-08-18] MEDS: ATENOLOL 25 MG TABLET (FP) PO SCH (11:16)
--- NOTE | 2016-08-18 11:32 | PN ---
Progress Note, Physician History of Present Illness: No c/o foot pain No c/o fever/ chills Received HD today, Vancomycin redosed - Current Medication List Current Medications: Active Medications Acetaminophen (Tylenol -) 325 mg PO Q6HPO [facility] Last Admin: 08/18/16 11:17 Dose: 325 mg Alprazolam (Xanax -) 0.5 mg PO BID [facility] Last Admin: 08/18/16 11:05 Dose: 0.5 mg Atenolol (Tenormin -) 25 mg PO DAILY [facility] Last Admin: 08/18/16 11:16 Dose: 25 mg Ceftriaxone Sodium (Rocephin 1gm Ivpb (Pre-Docked)) 1 gm IVPB DAILY [facility] Last Admin: 08/18/16 11:05 Dose: 1 gm Docusate Sodium (Colace -) 100 mg PO DAILY [facility] Last Admin: 08/18/16 11:05 Dose: 100 mg Multivit/Ca Carb/B Cmplx/FA/Prenat (Nephro-Louie -) 1 tablet PO DAILY [facility] Last Admin: 08/18/16 11:04 Dose: 1 tablet Oxycodone HCl (Roxicodone -) 10 mg PO Q6HPO [facility] Last Admin: 08/18/16 11:16 Dose: 10 mg Polyethylene Glycol (Miralax (For Daily Use) -) 17 gm PO DAILY [facility] Last Admin: 08/18/16 11:05 Dose: 17 gm Senna (Senna -) 1 tab PO HS [facility] Last Admin: 08/17/16 21:15 Dose: 1 tab Sevelamer Carbonate (Renvela -) 800 mg PO TIDCM [facility] Last Admin: 08/18/16 09:23 Dose: Not Given Trazodone HCl (Desyrel -) 50 mg PO HS [facility] Last Admin: 08/17/16 21:15 Dose: 50 mg Zolpidem Tartrate (Ambien -) 5 mg PO HS PRN - Objective Vital Signs: Vital Signs Temperature 97.8 F 08/18/16 06:55 Pulse Rate 70 08/18/16 10:30 Respiratory Rate 18 08/18/16 10:30 Blood Pressure 150/80 08/18/16 10:30 O2 Sat by Pulse Oximetry (%) 95 08/17/16 21:00 Constitutional: Yes: No Distress Cardiovascular: Yes: Regular Rate and Rhythm, S1, S2 Respiratory: Yes: CTA Bilaterally Gastrointestinal: Yes: Normal Bowel Sounds, Soft. No: Tenderness Extremities: Yes: Other (+ hyperemia, toes L foot No warmth L 2nd toe purpuric) Labs: CBC, BMP 08/18/16 07:00 08/18/16 07:00 INR, PTT INR 1.06 (0.82-1.09) 08/15/16 13:24 Assessment/Plan Ischemic toes L foot Possible cellulitis ESRD Continue ceftriaxone; vancomycin redosed
[2016-08-18] MEDS: traZODone HCL 50 MG TABLET (FP) PO SCH (21:54)
[2016-08-18] MEDS: SENNOSIDES 8.6MG TABLET (FP) PO SCH (21:54)
[2016-08-19] MEDS: oxyCODONE HCL 5 MG TABLET PO SCH ×4 (00:58→18:06)
[2016-08-19] MEDS: ACETAMINOPHEN 325 MG TABLET (FP) PO SCH ×4 (00:58→18:06)
[2016-08-19 08:09] LABS: BASOPHIL 0.4 % (0-2.0); EOSINOPHIL 2.1 % (0-4.5); MCH 31.1 pg (25.7-33.7); MCHC 32.4 g/dl (32.0-35.9); MEAN CELL VOLUME 96.1 fl (80-96); NEUTROPHILS 64.5 % (42.8-82.8); PLATELET COUNT 61 K/MM3 (134-434); RDW 16.6 % (11.9-15.9)
[2016-08-19 08:18] LABS: ALBUMIN 2.7 g/dl (3.4-5.0); BILIRUBIN,TOTAL 0.3 mg/dL (0.2-1.0); CALCIUM 8.5 mg/dL (8.5-10.1); CREATININE 4.7 mg/dL (0.7-1.3); TOT PROT 5.1 g/dl (6.4-8.2)
[2016-08-19] MEDS: SEVELAMER CARBONATE 800 MG TAB (FP) PO SCH ×3 (08:30→17:30)
[2016-08-19] MEDS ORDERED: PT OWN MED DRAWER 7, Y5N ONE ×2 (09:54→20:21)
[2016-08-19] MEDS: DOCUSATE SODIUM 100 MG CAPSULE (FP) PO SCH (10:02)
[2016-08-19] MEDS: cefTRIAXone 1 GM/50 ML BAG (PRE-DOCKED) IVPB SCH (10:03)
[2016-08-19] MEDS: ALPRAZolam 0.25 MG TABLET PO SCH ×2 (10:03→21:28)
[2016-08-19] MEDS: VITAMIN B COMP W-C 1 EA TABLET PO SCH (10:03)
[2016-08-19] MEDS: ATENOLOL 25 MG TABLET (FP) PO SCH (10:03)
--- NOTE | 2016-08-19 11:12 | CONSULT ---
Consult Consult Specialty:: Vascular Surgery - History of Present Illness History of Present Illness: 76 yo male DM, ESRD on HD with discolored left 2nd toe and non-healing wounds of 1st toes. Mild pain. No trouble walking. - History Source History Provided By: Patient Limitations to Obtaining History: No Limitations - Past Medical History Cardio/Vascular: Yes: CAD, HTN Renal/: Yes: Renal Failure - Past Surgical History Past Surgical History: Yes: AV Fistula/Graft - Alcohol/Substance Use Hx Alcohol Use: No - Smoking History Smoking history: Never smoked Have you smoked in the past 12 months: No - Social History Usual Living Arrangement: [facility] Home Medications - Allergies Allergies/Adverse Reactions: Allergies Allergy/AdvReac Type Severity Reaction Status Date / Time No Known Allergies Allergy Verified 08/15/16 11:51 - Home Medications Home Medications: Ambulatory Orders Alprazolam [Xanax] 0.5 mg PO BID 08/15/16 Aspirin [ASA -] 81 mg PO DAILY 08/15/16 Atenolol [Tenormin -] 25 mg PO DAILY 08/15/16 Docusate Sodium [Colace -] 100 mg PO DAILY 08/15/16 Oxycodone HCl/Acetaminophen [Percocet 5-325 mg Tablet] 1 tab PO Q6H 08/15/16 Sevelamer Carbonate [Renvela] 800 mg PO TID 08/15/16 Trazodone HCl 50 mg PO HS 08/15/16 Vit B Cmplx 3/FA/Vit C/Biotin [Nephro-Louie Rx Tablet] 1 each PO DAILY 08/15/16 Zolpidem Tartrate [Ambien] 10 mg PO HS 08/15/16 Physical Exam Vital Signs: Vital Signs Temperature 98.8 F 08/19/16 06:00 Pulse Rate 76 08/19/16 06:00 Respiratory Rate 20 08/19/16 06:00 Blood Pressure 138/60 08/19/16 06:00 O2 Sat by Pulse Oximetry (%) 96 08/18/16 21:00 Constitutional: Yes: No Distress Eyes: Yes: WNL HENT: Yes: WNL Neck: Yes: WNL, Supple Cardiovascular: Yes: Regular Rate and Rhythm Respiratory: Yes: Regular Gastrointestinal: Yes: WNL, Normal Bowel Sounds, Soft Extremities: Yes: Cool (feet), Other (Left 1st toe with deep skin cracks. 2nd toe ecchymotic without skin breakdown.) Edema: LLE: Trace, RLE: Trace Peripheral Pulses WNL: No (No palpable pedal pulses) Labs: CBC, BMP 08/19/16 06:25 08/19/16 06:25 Problem List - Problems (1) Ischemia of left lower extremity Assessment/Plan: Diabetic, renal failure with evidence for distal arterial disease. Most likely tibial calcific disease in this setting. Will plan angiogram for revascularization. Code(s): I99.8 - OTHER DISORDER OF CIRCULATORY SYSTEM
[2016-08-19] MEDS ORDERED: ASPIRIN 81 MG CHEWABLE TABLETS PO SCH (11:15)
[2016-08-19] MEDS ORDERED: CLOPIDOGREL BISULFATE 300 MG TABLET PO ONE (11:15)
--- NOTE | 2016-08-19 11:54 | PN ---
Progress Note (short form) - Note Progress Note: Renal Follow up for ESRD on HD Pt seen and examined at the bedside no acute complaints no chest pain, fever, or chills Vital Signs Temperature 98.8 F 08/19/16 06:00 Pulse Rate 76 08/19/16 06:00 Respiratory Rate 20 08/19/16 06:00 Blood Pressure 138/60 08/19/16 06:00 O2 Sat by Pulse Oximetry (%) 96 08/18/16 21:00 Intake & Output 08/16/16 08/17/16 08/18/16 08/19/16 23:59 23:59 23:59 23:59 Intake Total 1457 1740 1650 0 Output Total 0 Balance 1457 1740 1650 0 Weight 161 lb 3 oz 166 lb 167 lb 2 oz Gen: NAD, awake and alert CVS: RRR, No M/R Lungs: CTA, no rales or wheeze Abd: Soft NT/ND Ext: Rigtht arm swelling improved, Foot in dressing Access: Right Arm AVF + thrill and bruit CBC, BMP 08/19/16 06:25 08/19/16 06:25 Current Medications Acetaminophen (Tylenol -) 325 mg PO Q6HPO [facility] Last Admin: 08/19/16 07:03 Dose: 325 mg Alprazolam (Xanax -) 0.5 mg PO BID [facility] Last Admin: 08/19/16 10:03 Dose: 0.5 mg Aspirin (Asa -) 81 mg PO DAILY [facility] Atenolol (Tenormin -) 25 mg PO DAILY [facility] Last Admin: 08/19/16 10:03 Dose: 25 mg Ceftriaxone Sodium (Rocephin 1gm Ivpb (Pre-Docked)) 1 gm IVPB DAILY [facility] Last Admin: 08/19/16 10:03 Dose: 1 gm Docusate Sodium (Colace -) 100 mg PO DAILY [facility] Last Admin: 08/19/16 10:02 Dose: 100 mg Multivit/Ca Carb/B Cmplx/FA/Prenat (Nephro-Louie -) 1 tablet PO DAILY [facility] Last Admin: 08/19/16 10:03 Dose: 1 tablet Mupirocin (Bactroban 2% Ointment -) 1 applic TP BID [facility] Oxycodone HCl (Roxicodone -) 10 mg PO Q6HPO [facility] Last Admin: 08/19/16 07:02 Dose: 10 mg Polyethylene Glycol (Miralax (For Daily Use) -) 17 gm PO DAILY [facility] Last Admin: 08/18/16 11:05 Dose: 17 gm Senna (Senna -) 1 tab PO HS [facility] Last Admin: 08/18/16 21:54 Dose: 1 tab Sevelamer Carbonate (Renvela -) 800 mg PO TIDCM [facility] Last Admin: 08/19/16 08:30 Dose: 800 mg Trazodone HCl (Desyrel -) 50 mg PO HS [facility] Last Admin: 08/18/16 21:54 Dose: 50 mg Zolpidem Tartrate (Ambien -) 5 mg PO HS PRN A/P 76 year old Gentleman with PMhx of ESRD on HD (x 1 year), Hypertension, Renal Osteodytrophy who presents with erythema and tenderness of his 1st and 2nd digit on the right food and swelling in his access arm #ESRD on Hd no acute indication for dialysis today if pt gets a angiogram will attempt to do HD following to preserve residual renal function #LE cellulitis/PVD Doppler US of the LE showed atherosclerotic plaque and stenosis of left superficial femoral artery Vascular Sx eval pending traditional vs. CT Angiogram of the LE as per vascular pain control Vanco dosed by levels on Ceftriaxone #Right ARM swelling/AVF with prolonged bleeding Fracture of humerus noted Ortho note appreciated no stenosis on AVF arm swelling improved - likely caused by fracture #Thrombocytopenia Plt counts remain low no heparin with HD work up as per primary Armen Machado DO
[2016-08-19] MEDS ORDERED: MUPIROCIN 2% TOPICAL OINTMENT 22 GM TUBE TP SCH (12:00)
[2016-08-19] MEDS: POLYETHYLENE GLYCOL 3350 119 GM BTL PO SCH (12:15)
--- NOTE | 2016-08-19 12:58 | PN ---
Progress Note (short form) - Note Progress Note: comfortable in sling DC TO HOME WHEN MEDICALLY OK. F/U MY OFFICE X 1 WEEK
--- NOTE | 2016-08-19 13:06 | PN ---
Progress Note, Physician History of Present Illness: No c/o foot pain No fever/ chills For angiogram/ angioplasty today - Current Medication List Current Medications: Active Medications Acetaminophen (Tylenol -) 325 mg PO Q6HPO [facility] Last Admin: 08/19/16 07:03 Dose: 325 mg Alprazolam (Xanax -) 0.5 mg PO BID [facility] Last Admin: 08/19/16 10:03 Dose: 0.5 mg Aspirin (Asa -) 81 mg PO DAILY [facility] Atenolol (Tenormin -) 25 mg PO DAILY [facility] Last Admin: 08/19/16 10:03 Dose: 25 mg Ceftriaxone Sodium (Rocephin 1gm Ivpb (Pre-Docked)) 1 gm IVPB DAILY [facility] Last Admin: 08/19/16 10:03 Dose: 1 gm Docusate Sodium (Colace -) 100 mg PO DAILY [facility] Last Admin: 08/19/16 10:02 Dose: 100 mg Multivit/Ca Carb/B Cmplx/FA/Prenat (Nephro-Louie -) 1 tablet PO DAILY [facility] Last Admin: 08/19/16 10:03 Dose: 1 tablet Mupirocin (Bactroban 2% Ointment -) 1 applic TP BID [facility] Oxycodone HCl (Roxicodone -) 10 mg PO Q6HPO [facility] Last Admin: 08/19/16 07:02 Dose: 10 mg Polyethylene Glycol (Miralax (For Daily Use) -) 17 gm PO DAILY [facility] Last Admin: 08/19/16 12:15 Dose: Not Given Senna (Senna -) 1 tab PO HS [facility] Last Admin: 08/18/16 21:54 Dose: 1 tab Sevelamer Carbonate (Renvela -) 800 mg PO TIDCM [facility] Last Admin: 08/19/16 12:15 Dose: Not Given Trazodone HCl (Desyrel -) 50 mg PO HS [facility] Last Admin: 08/18/16 21:54 Dose: 50 mg Zolpidem Tartrate (Ambien -) 5 mg PO HS PRN - Objective Vital Signs: Vital Signs Temperature 98.8 F 08/19/16 06:00 Pulse Rate 76 08/19/16 06:00 Respiratory Rate 20 08/19/16 06:00 Blood Pressure 138/60 08/19/16 06:00 O2 Sat by Pulse Oximetry (%) 96 01/16/17 21:00 Constitutional: Yes: No Distress Cardiovascular: Yes: Regular Rate and Rhythm, S1, S2 Respiratory: Yes: CTA Bilaterally Gastrointestinal: Yes: Normal Bowel Sounds, Soft. No: Tenderness Extremities: Yes: Other (+ hyperemia of toes L foot. L 2nd toe cyanotic) Labs: CBC, BMP 08/19/16 06:25 08/19/16 06:25 INR, PTT INR 1.06 (0.82-1.09) 08/15/16 13:24 Assessment/Plan Ischemic toes L foot Possible cellulitis ESRD Continue ceftriaxone; vancomycin redosed For angiogram/ angioplasty today
[2016-08-19] MEDS ORDERED: VANCOMYCIN 1 GRAM (PRE-DOCKED) 250 ML IVPB ONE (14:15)
--- NOTE | 2016-08-19 16:01 | PN ---
Physical Exam: SUBJECTIVE: Patient seen and examined. Denies discomfort or pain. States pain is well controlled with Oxycodone 10mg. OBJECTIVE: Vital Signs Period Temp Pulse Resp BP Sys/Medina Pulse Ox Last 24 Hr 97.4 F-98.8 F 73-101 18-20 112-138/31-74 96 GENERAL: Awake, alert, and fully oriented EYES: Pupils equal, round and reactive to light ENT: Ears normal, nares patent, Moist mucous membranes. NECK: Normal range of motion, supple without lymphadenopathy LUNGS: Breath sounds equal, clear to auscultation bilaterally. No accessory muscle use. HEART: heart rate irregular. ABDOMEN: Soft, nontender, not distended, normoactive bowel sounds MUSCULOSKELETAL: Right arm sling secondaryt to non displaced fracture of right proximal humerus at surgical neck UPPER EXTREMITIES: right ankle with +1 pitting edema, left foot + 2 pitting edema. Left 1st and 2nd toes +erythema + edema. NEUROLOGICAL: Normal speech. Able to stand without difficulty, gait not observed. PSYCHIATRIC: Cooperative. Good eye contact. Laboratory Results - last 24 hr 08/18/16 08/19/16 08/19/16 07:00 06:25 06:25 WBC 4.0 RBC 3.55 L Hgb 11.1 L D Hct 34.1 L MCV 96.1 H MCHC 32.4 RDW 16.6 H Plt Count 61 L MPV 11.0 Neutrophils % 64.5 Lymphocytes % 18.7 Monocytes % 14.3 H Eosinophils % 2.1 D Basophils % 0.4 Sodium 140 Potassium 3.6 Chloride 101 Carbon Dioxide 28 Anion Gap 11 BUN 39 H Creatinine 4.7 H D Creat Clearance w eGFR 12.12 Random Glucose 92 D Calcium 8.5 Total Bilirubin 0.3 D AST 14 L ALT 21 Alkaline Phosphatase 77 Total Protein 5.1 L Albumin 2.7 L Random Vancomycin 14.384 Hepatitis A Ab Total Positive Hep Bs Antigen Negative Hep Bs Antibody Reactive Hep B Core Total Ab Positive Hepatitis C Antibody 0.1 Active Medications Generic Name Dose Route Start Last Admin Trade Name Freq PRN Reason Stop Dose Admin Acetaminophen 325 mg 08/16/16 00:00 08/19/16 13:19 Tylenol - PO 325 mg Q6HPO MARCUS Administration Alprazolam 0.5 mg 08/15/16 22:00 08/19/16 10:03 Xanax - PO 0.5 mg BID MARCUS Administration Aspirin 81 mg 08/19/16 11:15 08/19/16 13:18 Asa - PO 81 mg DAILY MARCUS Administration Atenolol 25 mg 08/16/16 10:00 08/19/16 10:03 Tenormin - PO 25 mg DAILY [facility]ARCUS Administration Ceftriaxone Sodium 1 gm 08/15/16 18:00 08/19/16 10:03 Rocephin 1gm Ivpb (Pre-Docked) IVPB 1 gm DAILY [facility]US Administration Docusate Sodium 100 mg 08/16/16 10:00 08/19/16 10:02 Colace - PO 100 mg DAILY [facility]US Administration Multivit/Ca Carb/B Cmplx/FA/Prenat 1 tablet 08/16/16 10:00 08/19/16 10:03 Nephro-Louie - PO 1 tablet DAILY [facility]US Administration Mupirocin 1 applic 08/19/16 12:00 08/19/16 13:19 Bactroban 2% Ointment - TP 1 applic BID [facility]US Administration Oxycodone HCl 10 mg 08/16/16 00:00 08/19/16 13:19 Roxicodone - PO 10 mg Q6HPO [facility] Administration Polyethylene Glycol 17 gm 08/16/16 13:00 08/19/16 12:15 Miralax (For Daily Use) - PO Not Given DAILY MARCUS Senna 1 tab 08/16/16 22:00 08/18/16 21:54 Senna - PO 1 tab HS [facility]US Administration Sevelamer Carbonate 800 mg 08/16/16 08:00 08/19/16 12:15 Renvela - PO Not Given TIDCM [facility]US Trazodone HCl 50 mg 08/15/16 22:00 08/18/16 21:54 Desyrel - PO 50 mg HS [facility] Administration Zolpidem Tartrate 5 mg 08/15/16 22:00 Ambien - PO HS PRN ASSESSMENT/PLAN: Patient is a 76 year old male with a significant past medical history of ESRD ( on outpatient dialysis on MWF) hypertension and renal osteodytrophy. He presented to the ED on 08/15/2016 with erythema and tenderness of his left foot 1st and 2nd digit. He also presented with swelling in his AV access arm s/p mechanical fall earlier in the week. He noted that his right arm had been swollen for several days. He denies any fever, chills or any other discomfort. ID: Left foot 1st and 2nd toe cellulitis/ischemia - acute Assessment/Plan: Foot xray 08/15/2016 with no evidence of osteomylelitis 1st and 2nd toe with erythema and edema On Ceftriaxone 1gram daily as per ID, Vancomycin per trough. Pain managed with Oxycodone 10mg q6 PRN will get angiogram today followed by HD Muscular/Skeletal: Left Humeral fracture - s/p fall @ home Assessment/Plan: Shoulder Xray 08/15/2016 shows slightly displaced humeral neck fracture Pain managed with oxycodone 10mg q6 PRN As per Ortho: No surgery, continue sling and NWB right arm. GI: End Stage Renal Disease - chronic Assessment/Plan: Dialysis Thursday, Thu., Thursday Dialysis after angiogram Renal dosed medications Renal following Cardiology: Hypertension - chronic Assessment/Plan: Controlled on Atenolol 10 mg daily Monitor BPs Hematology: Thrombocytopenia - acute vs chronic Assessment/Plan: Likely chronic, no prior labs to compare Bleeding precautions, anticoagulation contraindicated F.E.N. Fluids: Tolerating PO Electrolytes: Hyponatremia: resolved Nutrition: Renal diet Prophylaxis: DVT: Contraindicated secondary to thrombocytopenia, GI: Colace, Senna PT Consult Visit type - Emergency Visit Emergency Visit: Yes ED Registration Date: 08/15/16 Care time: The patient presented to the Emergency Department on the above date and was hospitalized for further evaluation of their emergent condition. - New Patient This patient is new to me today: No - Critical Care Critical Care patient: No - Discharge Referral Referred to [facility] Med [facility] No
[2016-08-19] MEDS ORDERED: LIDOCAINE HCL 1%, 10 MG/ML (20ML VIAL) ONE (16:58)
[2016-08-19] MEDS ORDERED: HEPARIN NA (PORCINE) 5,000 UNITS/ML 1ML VIAL ONE ×2 (16:58→18:35)
[2016-08-19] MEDS ORDERED: MIDAZOLAM HCL 2 MG/2 ML SINGLE DOSE VIAL ONE ×3 (17:19→17:50)
[2016-08-19] MEDS ORDERED: PROPOFOL 20 ML ONE (17:19)
[2016-08-19] MEDS ORDERED: ceFAZolin SODIUM 1 GM VIAL IVPB ONE (17:27)
[2016-08-19] MEDS ORDERED: LIDOCAINE HCL 1%, 10 MG/ML (20ML VIAL) IJ ONE (17:38)
[2016-08-19] MEDS ORDERED: oxyCODONE HCL 5 MG TABLET PO PRN ×2 (19:08→20:03)
--- NOTE | 2016-08-19 19:11 | OP ---
Operative Note - Note: Operative Date: 08/19/16 Pre-Operative Diagnosis: Ischemic left foot Operation: Revascularization left femoral artery with atherectomy and drug- coated balloon angioplasty. Ultrasound guided cannulation right femoral artery. Perclose vessel closure Findings: Calcified distal aorta and iliacs. Patent left STYLE ADVISOR, DFA and proximal SFA Severe (>90%) stenosis distal SFA with calcified plaque. Patent popliteal, PT and AT with 2 vessel runoff to foot. Post-Operative Diagnosis: Same as Pre-op Surgeon: Espinoza Martinez Anesthesiologist/CLINICAL OPERATIONS SPECIALIST: Darwin Morales Anesthesia: Fractional Estimated Blood Loss (mls): 10
[2016-08-19] MEDS ORDERED: ZOLPIDEM TARTRATE 5 MG TABLET PO PRN (20:03)
[2016-08-19] MEDS: MUPIROCIN 2% TOPICAL OINTMENT 22 GM TUBE TP SCH (21:27)
[2016-08-19] MEDS ORDERED: SENNOSIDES 8.6MG TABLET (FP) PO SCH (22:00)
[2016-08-19] MEDS ORDERED: traZODone HCL 50 MG TABLET (FP) PO SCH (22:00)
[2016-08-20 00:07] LABS: HEP B SURFACE AB Reactive (.)
[2016-08-20] MEDS: oxyCODONE HCL 5 MG TABLET PO SCH ×3 (00:10→11:38)
[2016-08-20] MEDS: ACETAMINOPHEN 325 MG TABLET (FP) PO SCH ×3 (00:10→11:38)
[2016-08-20] MEDS ORDERED: PT OWN MED DRAWER 7, Y5N ONE (05:35)
[2016-08-20 07:59] LABS: BASOPHIL 0.3 % (0-2.0); EOSINOPHIL 2.1 % (0-4.5); MCH 31.4 pg (25.7-33.7); MCHC 32.8 g/dl (32.0-35.9); MEAN CELL VOLUME 95.7 fl (80-96); MEAN PLT VOLUME 10.8 fl (7.5-11.1); NEUTROPHILS 64.4 % (42.8-82.8); PLATELET COUNT 64 K/MM3 (134-434); RDW 16.9 % (11.9-15.9); WHITE BLOOD COUNT 5.2 K/mm3 (4.0-10.0)
[2016-08-20] MEDS: SEVELAMER CARBONATE 800 MG TAB (FP) PO SCH ×2 (08:10→11:08)
[2016-08-20 08:17] LABS: ALBUMIN 2.8 g/dl (3.4-5.0); BILIRUBIN,TOTAL 0.3 mg/dL (0.2-1.0); CALCIUM 9.2 mg/dL (8.5-10.1); CREATININE 5.2 mg/dL (0.7-1.3); PHOSPHOROUS 3.9 mg/dL (2.5-4.9); TOT PROT 5.4 g/dl (6.4-8.2)
[2016-08-20] MEDS ORDERED: VANCOMYCIN 1,000 MG in DEXTROSE 5%-WATER - 250 ML IVPB ONE (09:00)
[2016-08-20] MEDS ORDERED: DOCUSATE SODIUM 100 MG CAPSULE (FP) PO SCH (10:00)
[2016-08-20] MEDS ORDERED: POLYETHYLENE GLYCOL 3350 119 GM BTL PO SCH (10:00)
[2016-08-20] MEDS ORDERED: cefTRIAXone 1 GM/50 ML BAG (PRE-DOCKED) IVPB SCH (10:00)
[2016-08-20] MEDS ORDERED: ASPIRIN 81 MG CHEWABLE TABLETS PO SCH (10:00)
[2016-08-20] MEDS ORDERED: VITAMIN B COMP W-C 1 EA TABLET PO SCH (10:00)
[2016-08-20] MEDS ORDERED: ATENOLOL 25 MG TABLET (FP) PO SCH (10:00)
[2016-08-20] MEDS ORDERED: CLOPIDOGREL BISULFATE 75 MG TABLET (FP) PO SCH (10:00)
--- NOTE | 2016-08-20 10:41 | PN ---
Progress Note, Physician History of Present Illness: S/P angioplasty No c/o foot pain at rest Has pain when toes manipulated No fever/ chills - Current Medication List Current Medications: Active Medications Acetaminophen (Tylenol -) 325 mg PO Q6HPO [facility] Last Admin: 08/20/16 06:51 Dose: 325 mg Alprazolam (Xanax -) 0.5 mg PO BID [facility] Last Admin: 08/19/16 21:28 Dose: 0.5 mg Aspirin (Asa -) 81 mg PO DAILY [facility] Atenolol (Tenormin -) 25 mg PO DAILY [facility] Ceftriaxone Sodium (Rocephin 1gm Ivpb (Pre-Docked)) 1 gm IVPB DAILY [facility] Clopidogrel Bisulfate (Plavix -) 75 mg PO DAILY [facility] Docusate Sodium (Colace -) 100 mg PO DAILY [facility] Fentanyl (Sublimaze Injection -) 25 mcg IVPUSH [id number] PRN PRN Reason: PAIN Stop: 08/22/16 19:09 Multivit/Ca Carb/B Cmplx/FA/Prenat (Nephro-Louie -) 1 tablet PO DAILY [facility] Mupirocin (Bactroban 2% Ointment -) 1 applic TP BID [facility] Last Admin: 08/19/16 21:27 Dose: 1 applic Oxycodone HCl (Roxicodone -) 10 mg PO Q6HPO [facility] Last Admin: 08/20/16 06:49 Dose: 10 mg Oxycodone HCl (Roxicodone -) 5 mg PO Q4H PRN PRN Reason: MILD PAIN Stop: 08/20/16 19:07 Last Admin: 08/19/16 21:28 Dose: 5 mg Polyethylene Glycol (Miralax (For Daily Use) -) 17 gm PO DAILY [facility] Senna (Senna -) 1 tab PO HS [facility] Last Admin: 08/19/16 21:28 Dose: 1 tab Sevelamer Carbonate (Renvela -) 800 mg PO TIDCM [facility] Last Admin: 08/20/16 08:10 Dose: Not Given Trazodone HCl (Desyrel -) 50 mg PO HS [facility] Last Admin: 08/19/16 21:28 Dose: 50 mg Zolpidem Tartrate (Ambien -) 5 mg PO HS PRN Last Admin: 08/19/16 23:07 Dose: 5 mg - Objective Vital Signs: Vital Signs Temperature 97.5 F L 08/20/16 07:15 Pulse Rate 87 08/20/16 09:50 Respiratory Rate 18 08/20/16 09:50 Blood Pressure 143/64 08/20/16 09:50 O2 Sat by Pulse Oximetry (%) 96 08/19/16 21:00 Constitutional: Yes: No Distress Cardiovascular: Yes: Regular Rate and Rhythm, S1, S2 Respiratory: Yes: CTA Bilaterally Gastrointestinal: Yes: Normal Bowel Sounds, Soft. No: Tenderness Extremities: Yes: Other (+ hyperemia of toes; cyanosis 2nd toe) Labs: CBC, BMP 08/20/16 07:00 08/20/16 07:00 INR, PTT INR 1.06 (0.82-1.09) 08/15/16 13:24 Assessment/Plan Ischemic toes L foot Possible cellulitis ESRD Continue ceftriaxone ; vancomycin theraputic
[2016-08-20] MEDS: ALPRAZolam 0.25 MG TABLET PO SCH (10:54)
[2016-08-20] MEDS: MUPIROCIN 2% TOPICAL OINTMENT 22 GM TUBE TP SCH (10:55)
--- NOTE | 2016-08-20 13:09 | PN ---
Progress Note (short form) - Note Progress Note: POD 1 No c/o Right groin ecchymosis, no mass Left foot warm, palpable DP pulse. Toes remain ecchymotic, no blanching. Wounds dry. Stable. Clear for discharge on ASA and Plavix F/U in my office in 2 weeks. Problem List - Problems (1) Ischemia of left lower extremity Code(s): I99.8 - OTHER DISORDER OF CIRCULATORY SYSTEM
--- NOTE | 2016-08-20 13:11 | PN ---
Progress Note (short form) - Note Progress Note: Subjective: The patient was seen and examined in dialysis. He has no complaints at this time. S/p angio 08/19, started on Plavix HD today Current Medications Generic Name Dose Route Start Last Admin Trade Name Freq PRN Reason Stop Dose Admin Acetaminophen 325 mg 08/20/16 00:00 08/20/16 06:51 Tylenol - PO 325 mg Q6HPO [facility]ARCUS Administration Alprazolam 0.5 mg 08/19/16 22:00 08/20/16 10:54 Xanax - PO 0.5 mg BID [facility]US Administration Aspirin 81 mg 08/20/16 10:00 08/20/16 10:54 Asa - PO 81 mg DAILY [facility]US Administration Atenolol 25 mg 08/20/16 10:00 08/20/16 10:54 Tenormin - PO 25 mg DAILY [facility] Administration Ceftriaxone Sodium 1 gm 08/20/16 10:00 08/20/16 10:55 Rocephin 1gm Ivpb (Pre-Docked) IVPB 1 gm DAILY [facility] Administration Clopidogrel Bisulfate 75 mg 08/20/16 10:00 08/20/16 10:55 Plavix - PO 75 mg DAILY [facility]US Administration Docusate Sodium 100 mg 08/20/16 10:00 08/20/16 10:55 Colace - PO 100 mg DAILY [facility] Administration Fentanyl 25 mcg 08/19/16 20:03 Sublimaze Injection - IVPUSH 08/22/16 19:09 [id number] PRN PAIN Multivit/Ca Carb/B Cmplx/FA/Prenat 1 tablet 08/20/16 10:00 08/20/16 10:54 Nephro-Louie - PO 1 tablet DAILY [facility] Administration Mupirocin 1 applic 08/19/16 22:00 08/20/16 10:55 Bactroban 2% Ointment - TP 1 applic BID [facility] Administration Oxycodone HCl 10 mg 08/20/16 00:00 08/20/16 06:49 Roxicodone - PO 10 mg Q6HPO [facility] Administration Oxycodone HCl 5 mg 08/19/16 20:03 08/19/16 21:28 Roxicodone - PO 08/20/16 19:07 5 mg Q4H PRN Administration MILD PAIN Polyethylene Glycol 17 gm 08/20/16 10:00 08/20/16 10:55 Miralax (For Daily Use) - PO 17 gm DAILY [facility] Administration Senna 1 tab 08/19/16 22:00 08/19/16 21:28 Senna - PO 1 tab HS [facility] Administration Sevelamer Carbonate 800 mg 08/20/16 08:00 08/20/16 11:08 Renvela - PO 800 mg TIDCM [facility] Administration Trazodone HCl 50 mg 08/19/16 22:00 08/19/16 21:28 Desyrel - PO 50 mg HS [facility] Administration Zolpidem Tartrate 5 mg 08/19/16 20:03 08/19/16 23:07 Ambien - PO 5 mg HS PRN Administration Objective: Vital Signs Period Temp Pulse Resp BP Sys/Medina Pulse Ox Last 24 Hr 97.4 F-98.4 F 74-101 16-20 107-165/31-78 96-99 Physical Exam: General: NAD, A&Ox3 Lungs: CTA bilaterally Heart: Irregular rate, S1S2, + systolic murmur Abd: Soft, non-tender, non-distended. Normoactive bowel sounds Ext: RUE AVF, +thrill, +bruit. Left great toe with erythema, 2nd digit with ischemia. +DP/PT CBCD WBC 5.2 K/mm3 (4.0-10.0) 08/20/16 07:00 RBC 3.67 M/mm3 (4.00-5.60) L 08/20/16 07:00 Hgb 11.5 GM/dL (11.7-16.9) L 08/20/16 07:00 Hct 35.1 % (35.4-49) L 08/20/16 07:00 MCV 95.7 fl (80-96) 08/20/16 07:00 MCHC 32.8 g/dl (32.0-35.9) 08/20/16 07:00 RDW 16.9 % (11.9-15.9) H 08/20/16 07:00 Plt Count 64 K/MM3 (134-434) L 08/20/16 07:00 MPV 10.8 fl (7.5-11.1) 08/20/16 07:00 CMP Sodium 138 mmol/L (136-145) 08/20/16 07:00 Potassium 4.0 mmol/L (3.5-5.1) 08/20/16 07:00 Chloride 101 mmol/L (98-107) 08/20/16 07:00 Carbon Dioxide 27 mmol/L (21-32) 08/20/16 07:00 Anion Gap 10 (8-16) 08/20/16 07:00 BUN 48 mg/dL (7-18) H D 08/20/16 07:00 Creatinine 5.2 mg/dL (0.7-1.3) H 08/20/16 07:00 Creat Clearance w eGFR 10.78 (>60) 08/20/16 07:00 Random Glucose 94 mg/dL (74-106) 08/20/16 07:00 Calcium 9.2 mg/dL (8.5-10.1) 08/20/16 07:00 Total Bilirubin 0.3 mg/dL (0.2-1.0) 08/20/16 07:00 AST 18 U/L (15-37) D 08/20/16 07:00 ALT 21 U/L (12-78) 08/20/16 07:00 Alkaline Phosphatase 83 U/L (45-117) 08/20/16 07:00 Total Protein 5.4 g/dl (6.4-8.2) L 08/20/16 07:00 Albumin 2.8 g/dl (3.4-5.0) L 08/20/16 07:00 Assessment: This is a 76 year old male with PMHx of HTN, colon cancer s/p resection, A.fib (taken off ac by pcp 2 months ago, ESRD (HD M,W,F), severe PAD who presented to the ED with left arm pain and 1st and 2nd left toe pain x10 days. Plan: 1) Vascular: Ischemic toes, left foot - Lower extremity arterial duplex: bilateral diffuse atheromatous plaque with intimal hyperplasia and atherosclerotic vascular disease, L>R with stenosis suspected in the region of the mid left superficial femoral artery - S/p revascularization left femoral artery with artherectomy and drug coated balloon angioplasty - Continue Plavix - Continue ASA - Appreciate vascular consult 2) ID: Possible left foot cellulitis - Continue Ceftriaxone (day 6) - Continue Vancomycin, dose per levels (day 4) - Afebrile - WBC wnl - Appreciate ID consult 3) : ESRD - Tolerated HD today - Continue Renvela - Continue Nephrovite - Appreciate nephrology consult 4) MSK: Humeral neck fracture s/p fall - X-ray with slightly displaced right humeral neck fracture - No surgery per ortho - Recommend sling, no weight bearing - ROM exercises for the elbow, wrist, fingers. NOT the shoulder - Pain management - Will need outpatient follow-up with ortho - Appreciate ortho consult 5) Heme: Thrombocytopenia - Unknown baseline - Stable - No evidence of bleeding - Continue to monitor 6) Cardiology: A.fib - Not on anticoagulation likely 2/2 thrombocytopenia. Taken off by pcp 2 months ago - Rate controlled HTN - Continue Atenolol 7) F/E/N: - Monitor electrolytes - Renal diet 8) Prophylaxis: - Hold all chemical anticoagulation 2/2 thrombocytopenia - PT: walked 125ft 9) Dispo: - Requires continued inpatient care CODE STATUS: FULL CODE Visit type - Emergency Visit Emergency Visit: Yes ED Registration Date: 08/15/16 Care time: The patient presented to the Emergency Department on the above date and was hospitalized for further evaluation of their emergent condition. - New Patient This patient is new to me today: Yes Date on this admission: 08/20/16 - Critical Care Critical Care patient: No
--- NOTE | 2016-08-20 13:45 | PN ---
Progress Note (short form) - Note Progress Note: Anesthesia postop note 76 y/o M s/p MAC anesthesia for angiogram, angioplasty POD#1, vss, aaox3, no complaints. No anesthesia complications.
--- NOTE | 2016-08-20 14:22 | DS ---
Physical Examination Vital Signs: Vital Signs Temperature 97.5 F L 08/20/16 07:15 Pulse Rate 74 08/20/16 10:15 Respiratory Rate 18 08/20/16 10:15 Blood Pressure 144/57 08/20/16 10:15 O2 Sat by Pulse Oximetry (%) 96 08/19/16 21:00 Findings/Remarks: Physical Exam: General: NAD, A&Ox3 Lungs: CTA bilaterally Heart: Irregular rate, S1S2, + systolic murmur Abd: Soft, non-tender, non-distended. Normoactive bowel sounds Ext: RUE AVF, +thrill, +bruit. Left great toe with erythema, 2nd digit with ischemia. +DP/PT Labs: CBC, BMP 08/20/16 07:00 08/20/16 07:00 Discharge Summary Reason For Visit: ISCHEMIA OF LOWER EXTREMITY Current Active Problems DVT prophylaxis (Acute) ESRD (end stage renal disease) (Acute) HTN (hypertension) (Acute) Humeral surgical neck fracture (Acute) Ischemia of left lower extremity (Acute) Ischemic leg (Acute) Thrombocytopenia (Acute) Hospital Course: This is a 76 year old male with PMHx of HTN, colon cancer s/p resection, A.fib ( taken off ac by pcp 2 months ago, ESRD (HD M,W,F), severe PAD who presented to the ED with left arm pain and 1st and 2nd left toe pain x10 days. Plan: 1) Vascular: Ischemic toes, left foot - Lower extremity arterial duplex: bilateral diffuse atheromatous plaque with intimal hyperplasia and atherosclerotic vascular disease, L>R with stenosis suspected in the region of the mid left superficial femoral artery - S/p revascularization left femoral artery with artherectomy and drug coated balloon angioplasty - Continue Plavix - Continue ASA - Appreciate vascular consult 2) ID: Possible left foot cellulitis - Stop all abx per ID - Afebrile - WBC wnl - Appreciate ID consult 3) : ESRD - Tolerated HD today - Continue Renvela - Continue Nephrovite - Appreciate nephrology consult 4) MSK: Humeral neck fracture s/p fall - X-ray with slightly displaced right humeral neck fracture - No surgery per ortho - Recommend sling, no weight bearing - ROM exercises for the elbow, wrist, fingers. NOT the shoulder - Pain management - Will need outpatient follow-up with ortho - Appreciate ortho consult 5) Heme: Thrombocytopenia - Unknown baseline - Stable - No evidence of bleeding - Continue to monitor 6) Cardiology: A.fib - Not on anticoagulation likely 2/2 thrombocytopenia. Taken off by pcp 2 months ago - Rate controlled HTN - Continue Atenolol Discussed with Dr. Sanchez, recommendation to stop all antibiotics prior to discharge. Condition: Improved - Instructions Diet, Activity, Other Instructions: Please return to the ED with new, persistent, or worsening symptoms. Please follow-up with providers as indicated. Referrals: Gallo Slater [Primary Care Provider] - 1 Week Sameer Finch MD [Staff Physician] - (Please follow-up with ortho within 1 week for further evaluation of your humerus fracture) Espinoza Martinez MD [Staff Physician] - 2 Weeks Armen Machado MD [Staff Physician] - (Please follow-up with nephrology within 2-3 days. Please resume outpatient dialysis as scheduled) Disposition: ALF FACILITY - Home Medications Comprehensive Discharge Medication List: Ambulatory Orders Alprazolam [Xanax] 0.5 mg PO BID 08/15/16 Aspirin [ASA -] 81 mg PO DAILY 08/15/16 Atenolol [Tenormin -] 25 mg PO DAILY 08/15/16 Docusate Sodium [Colace -] 100 mg PO DAILY 08/15/16 Oxycodone HCl/Acetaminophen [Percocet 5-325 mg Tablet] 1 tab PO Q6H 08/15/16 Sevelamer Carbonate [Renvela] 800 mg PO TID 08/15/16 Trazodone HCl 50 mg PO HS 08/15/16 Vit B Cmplx 3/FA/Vit C/Biotin [Nephro-Louie Rx Tablet] 1 each PO DAILY 08/15/16 Zolpidem Tartrate [Ambien] 10 mg PO HS 08/15/16 Acetaminophen [Tylenol .Regular Strength -] 325 mg PO Q6HPO tablet 08/20/16 Clopidogrel Bisulfate [Plavix -] 75 mg PO DAILY #30 tablet 08/20/16 Mupirocin Ointment [Bactroban 2% Ointment -] 1 applic TP DAILY #30 grams Polyethylene Glycol 3350 [Miralax 119 gm Btl -] 17 gm PO DAILY bottle 08/20/16 Sennosides [Senna -] 1 tab PO HS tablet 08/20/16 This patient is new to me today: No Emergency Visit: Yes ED Registration Date: 08/15/16 Care time: The patient presented to the Emergency Department on the above date and was hospitalized for further evaluation of their emergent condition. Critical Care patient: No - Discharge Referral Referred to [facility] No
[2016-08-20 15:41] VITALS: BP 134/62; PULSE 94; TEMP 98
--- NOTE | 2016-08-20 16:41 | PN ---
Progress Note (short form) - Note Progress Note: Renal Follow up for ESRD on HD Pt seen and examined during dialysis BP stable, AVF with good function Goal UF is 2L no acute complaints for discharge today Vital Signs Temperature 98 F 08/20/16 15:39 Pulse Rate 94 H 08/20/16 15:39 Respiratory Rate 17 08/20/16 15:39 Blood Pressure 134/62 08/20/16 15:39 O2 Sat by Pulse Oximetry (%) 96 08/20/16 11:00 Gen: NAD, awake and alert CVS: RRR, No M/R Lungs: CTA, no rales or wheeze Abd: Soft NT/ND Ext: Rigtht arm swelling improved, Foot in dressing Access: Right Arm AVF + thrill and bruit CBC, BMP 08/20/16 07:00 08/20/16 07:00 Current Medications Acetaminophen (Tylenol -) 325 mg PO Q6HPO [facility] Last Admin: 08/20/16 11:38 Dose: 325 mg Alprazolam (Xanax -) 0.5 mg PO BID [facility] Last Admin: 08/20/16 10:54 Dose: 0.5 mg Aspirin (Asa -) 81 mg PO DAILY [facility] Last Admin: 08/20/16 10:54 Dose: 81 mg Atenolol (Tenormin -) 25 mg PO DAILY [facility] Last Admin: 08/20/16 10:54 Dose: 25 mg Ceftriaxone Sodium (Rocephin 1gm Ivpb (Pre-Docked)) 1 gm IVPB DAILY [facility] Last Admin: 08/20/16 10:55 Dose: 1 gm Clopidogrel Bisulfate (Plavix -) 75 mg PO DAILY [facility] Last Admin: 08/20/16 10:55 Dose: 75 mg Docusate Sodium (Colace -) 100 mg PO DAILY [facility] Last Admin: 08/20/16 10:55 Dose: 100 mg Fentanyl (Sublimaze Injection -) 25 mcg IVPUSH [id number] PRN PRN Reason: PAIN Stop: 08/22/16 19:09 Multivit/Ca Carb/B Cmplx/FA/Prenat (Nephro-Louie -) 1 tablet PO DAILY [facility] Last Admin: 08/20/16 10:54 Dose: 1 tablet Mupirocin (Bactroban 2% Ointment -) 1 applic TP BID [facility] Last Admin: 08/20/16 10:55 Dose: 1 applic Oxycodone HCl (Roxicodone -) 10 mg PO Q6HPO [facility] Last Admin: 08/20/16 11:38 Dose: 10 mg Oxycodone HCl (Roxicodone -) 5 mg PO Q4H PRN PRN Reason: MILD PAIN Stop: 08/20/16 19:07 Last Admin: 08/19/16 21:28 Dose: 5 mg Polyethylene Glycol (Miralax (For Daily Use) -) 17 gm PO DAILY [facility] Last Admin: 08/20/16 10:55 Dose: 17 gm Senna (Senna -) 1 tab PO HS [facility] Last Admin: 08/19/16 21:28 Dose: 1 tab Sevelamer Carbonate (Renvela -) 800 mg PO TIDCM [facility] Last Admin: 08/20/16 11:08 Dose: 800 mg Trazodone HCl (Desyrel -) 50 mg PO HS [facility] Last Admin: 08/19/16 21:28 Dose: 50 mg Zolpidem Tartrate (Ambien -) 5 mg PO HS PRN Last Admin: 08/19/16 23:07 Dose: 5 mg A/P 76 year old Gentleman with PMhx of ESRD on HD (x 1 year), Hypertension, Renal Osteodytrophy who presents with erythema and tenderness of his 1st and 2nd digit on the right food and swelling in his access arm #ESRD on Hd Tolerated HD well to resume regular dialysis as outpatient #LE cellulitis/PVD s/p Angiogram by Vascular on ASA and Plavix Vascular follow up as outpatient #Right ARM swelling/AVF with prolonged bleeding Fracture of humerus noted Ortho note appreciated no stenosis on AVF arm swelling improved - likely caused by fracture #Thrombocytopenia Plt counts remain low no heparin with HD work up as per primary Armen Machado DO
--- NOTE | 2016-08-20 21:13 | OP ---
DATE OF OPERATION: 08/19/2016 SURGEON: Espinoza Martinez MD PROCEDURE: Revascularization, left superficial femoral artery, with atherectomy and drug-coated balloon angioplasty. Ultrasound-guided cannulation of the right common femoral artery. Perclose vessel closure. PREOPERATIVE DIAGNOSIS: Ischemic left foot. POSTOPERATIVE DIAGNOSIS: Ischemic left foot. ANESTHESIA: Fractional. ANESTHESIOLOGIST: Darwin Morales MD OPERATIVE FINDINGS: There was a calcified wall of the distal aorta and iliac arteries. The left common and deep femoral arteries were patent with no visible stenosis. The proximal superficial femoral artery was patent without stenosis. There was a severe stenosis of the distal left superficial femoral artery with calcified plaque over approximately a 10 cm length. The popliteal artery was patent with an intact bifurcation. There was patent anterior and posterior tibial arteries with runoff to the foot. The peroneal artery was occluded. OPERATIVE PROCEDURE: Following routine patient identification with side and site verification, intravenous sedation was established. Both groins and lower abdomen were prepped with ChloraPrep. Using realtime duplex imaging, the right common femoral artery was identified, and a site for cannulation proximal to the bifurcation chosen. 1% Xylocaine was infiltrated in the skin over the artery and a micropuncture needle was then used under duplex guidance to access the common femoral artery. A micropuncture wire was advanced proximally into the iliac artery and the needle was exchanged for a 5-Ecuadorean catheter. The wire was then exchanged for an angled-tip Glidewire, which was advanced into the abdominal aorta under fluoroscopic guidance. The catheter was exchanged for a 5-Ecuadorean sheath. An Omni Flush catheter was then advanced over the wire and digital angiography of the abdominal aorta and iliac arteries obtained. The wire was then passed through the catheter and into the left common iliac and then the external iliac artery. A straight flush catheter was then exchanged over the wire and positioned in the left common femoral artery. The table and C-arm were repositioned to obtain images of the femoral artery and distally as noted above. A stiff wire was passed through the catheter into the superficial femoral artery. The sheath and catheter were removed and a long 6-Ecuadorean sheath was advanced over the aortic bifurcation into the left femoral artery. The patient was systemically heparinized. An angled tip wire and catheter were then advanced distally into the superficial femoral artery, and using road-mapping techniques, the wire was advanced through the area of stenosis and into the popliteal artery. The catheter was advanced over the wire and confirmatory angiogram obtained. A Viper wire was then advanced through the catheter and positioned in the popliteal artery. The catheter was removed. The CSI shilpi-back atherectomy catheter with a 1.5-mm crown was used to perform rotational atherectomy of the area of stenosis, at medium, low, and high speeds. The catheter was removed and repeat angiography revealed improvement in the lumen of the vessel but continued severe stenosis. A 5-mm angioplasty balloon was used to pre-dilate the area of stenosis and then a 6 mm x 120 mm Lutonix drug-coated balloon was used to treat the area of stenosis with a 3-minute inflation. Upon removal of the balloon, completion angiography revealed a patent superficial femoral artery with 0% residual stenosis and intact runoff as described above. The sheath was then pulled back over the aortic bifurcation and the wire advanced into the abdominal aorta. Angiogram of the right femoral artery was obtained to confirm cannulation of the common femoral artery. The sheath was then removed and the Perclose device used to seal the arteriotomy after wire removal. Bleeding was controlled with pressure and a suture of 3-0 nylon was placed in the skin to prevent oozing. A sterile pressure dressing was applied and the patient was taken to the recovery room in stable condition. Ave [id number]
== END 2016-08-20 17:15 | DRG 270 ==
LOC: JER 11:42 → JERBED 17:16 → J5S 19:50
PROVIDERS: ADMIT Internal Medicine; ATTEND Registered Nurse
PROC: 04CL3ZZ Extirpation of Matter from Left Femoral Artery, Percutaneous Approach (ICD-10-PCS; 2016-08-19)
PROC: B40FYZZ Plain Radiography of Right Lower Extremity Arteries using Other Contrast (ICD-10-PCS; 2016-08-19)
PROC: 3E033GC Introduction of Other Therapeutic Substance into Peripheral Vein, Percutaneous Approach (ICD-10-PCS; 2016-08-19)
PROC: 047L341 Dilation of Left Femoral Artery with Drug-eluting Intraluminal Device, using Drug-Coated Balloon, Percutaneous Approach (ICD-10-PCS; principal; 2016-08-19 17:00)
DX: I99.8 Other disorder of circulatory system (principal); N18.6 End stage renal disease; N17.8 Other acute kidney failure; L03.116 Cellulitis of left lower limb; S42.294A Other nondisplaced fracture of upper end of right humerus, initial encounter for closed fracture; I73.89 Other specified peripheral vascular diseases; I12.0 Hypertensive chronic kidney disease with stage 5 chronic kidney disease or end stage renal disease; L03.032 Cellulitis of left toe; D69.6 Thrombocytopenia, unspecified; Z85.038 Personal history of other malignant neoplasm of large intestine; I48.91 Unspecified atrial fibrillation; W18.39XA Other fall on same level, initial encounter; Y93.89 Activity, other specified; Y92.89 Other specified places as the place of occurrence of the external cause
CPT/HCPCS: 36415; 71010-TC; 73030-TC-RT; 73630-TC-LT; 76000-TC; 80048; 80053; 83605; 83735; 84100; 85025; 85027; 85610; 85730; 86704; 86706; 86708; 86803; 86850; 86900; 86901; 87340; 93925-TC; 93970-TC; 93971; 94760; 97116-GP; 97162-PG; 99283-25; G0480; J1644

== ENCOUNTER 2016-09-29 09:06 | Emergency (ER) | payer OTHER, MEDICARE ==
[2016-09-29 09:24] VITALS: BP 152/73; PULSE 88; TEMP 97.2; BMI 24.3
--- NOTE | 2016-09-29 09:30 | PDOC ---
*Physical Exam - Vital Signs Last Vital Signs Temp Pulse Resp BP Pulse Ox 97.2 F L 88 18 152/73 100 09/29/16 09:21 09/29/16 09:21 09/29/16 09:21 09/29/16 09:21 09/29/16 09:21 - Physical Exam General Appearance: Yes: Nourished, Appropriately Dressed. No: Apparent Distress HEENT: positive: Normal ENT Inspection Neck: negative: Tender Respiratory/Chest: positive: Lungs Clear, Normal Breath Sounds. negative: Respiratory Distress Cardiovascular: positive: Regular Rhythm Gastrointestinal/Abdominal: positive: Soft. negative: Tender Musculoskeletal: negative: CVA Tenderness Extremity: positive: Normal Capillary Refill, Other (RT ARM SHUNT W/ PULSATION BUT NO THRILL. ECCHIMOSIS FROM UPPER ARM TO MID FOREARM ) Neurologic: positive: Fully Oriented, Alert, Normal Mood/Affect, Normal Response , Motor Strength 5/5 Progress Note - Progress Note Progress Note: 76 Y M ESRD, sent from HD for evaluation by doctor Juan Luis at the wound center. brought to er by ambulance protocol in ed in [facility]. hemodynamically stable transfer to wound center as planned PROX HUMERAL FX\ SLING F/U ORTHO CONTINUE HD *DC/Admit/Observation/Transfer Diagnosis at time of Disposition: Shunt malfunction Qualifiers: Encounter type: initial encounter Qualified Code(s): T85.698A - Other mechanical complication of other specified internal prosthetic devices, implants and grafts, initial encounter Fracture of humerus Qualifiers: Encounter type: initial encounter Humerus Location: surgical neck Fracture type : closed Fracture morphology: unspecified fracture morphology Fracture alignment : displaced Laterality: right Qualified Code(s): S42.211A - Unspecified displaced fracture of surgical neck of right humerus, initial encounter for closed fracture - Discharge Dispostion Disposition: HOME Condition at time of disposition: Stable - Referrals Referrals: Sameer Finch MD [Staff Physician] - Call tomorrow - Patient Instructions Additional Instructions: KEEP SLING UNTIL YOU SEE ORTHOPEDIC SURGEON CALL DR. FINCH'S OFFICE TODAY
[2016-09-29] MEDS ORDERED: ACETAMINOPHEN 325 MG TABLET (FP) ONE (09:31)
[2016-09-29] MEDS ORDERED: ACETAMINOPHEN 325 MG TABLET (FP) PO ONE (09:31)
== END 2016-09-29 11:38 | disposition home or self-care (01) ==
LOC: JER 09:06
DX: T82.49XA Other complication of vascular dialysis catheter, initial encounter (principal); Y84.1 Kidney dialysis as the cause of abnormal reaction of the patient, or of later complication, without mention of misadventure at the time of the procedure; Y92.89 Other specified places as the place of occurrence of the external cause; Z87.81 Personal history of (healed) traumatic fracture
CPT/HCPCS: 73060-TC-RT; 99281-25

== ENCOUNTER 2018-06-30 12:31 | Inpatient (IN) | payer OTHER, MEDICARE ==
--- NOTE | 2018-06-30 13:17 | PDOC ---
History of Present Illness <Ambar Crews - Last Filed: 06/30/18 15:30> - General History Source: Patient, Alf Records - History of Present Illness Initial Comments: 06/30/18 14:13 78m with pmh of HTN and ESRD on aspirin and Plavix, presents to the ED from the dialysis center for hypotention and anemia. After 13min of treatment there he became hypotensive in the 80's-90's and treatment was stopped. His hemoglobin was found to be 6.6 so he was sent to the ER for further evaluation. Also patient was complaining of pain in his foot the whole time. Patient is demented at baseline and produces urine. Recent debridement to the heel of his right foot by Dr. Martinez. Patient currently asymptomatic, doesn't known why he is here. <Luis Carlos Guillory - Last Filed: 06/30/18 16:46> - General Chief Complaint: Blood Pressure Problem Stated Complaint: LOW BLOOD PRESSURE,AMS Time Seen by Provider: 06/30/18 12:54 Past History <Ambar Crews - Last Filed: 06/30/18 15:30> - Past Medical History Cancer: Yes (COLON AND PROSTATE) Cardiac Disorders: Yes (A.FIB) Dementia: Yes Dialysis: Yes (M-W-F,RT ARM FISTULA) Disorders: Yes (ESRD) HTN: Yes Psychiatric Problems: Yes (ANXEITY) - Surgical History Abdominal Surgery: Yes (COLON CA) - Suicide/Smoking/Psychosocial Hx Smoking History: Never smoked Have you smoked in the past 12 months: No Hx Alcohol Use: No Drug/Substance Use Hx: No Substance Use Type: None <Luis Carlos Guillory - Last Filed: 06/30/18 16:46> - Past Medical History Allergies/Adverse Reactions: Allergies Allergy/AdvReac Type Severity Reaction Status Date / Time No Known Allergies Allergy Verified 08/15/16 11:51 Home Medications: Ambulatory Orders Alprazolam [Xanax] 0.5 mg PO BID PRN 08/15/16 Aspirin [ASA -] 81 mg PO DAILY 08/15/16 Atenolol [Tenormin -] 50 mg PO DAILY 08/15/16 Oxycodone HCl/Acetaminophen [Percocet 5-325 mg Tablet] 1 tab PO Q6H 08/15/16 Zolpidem Tartrate [Ambien] 5 mg PO HS 08/15/16 traZODone HCL [Trazodone HCl] 50 mg PO HS 08/15/16 Cinacalcet HCl [Sensipar -] 30 mg PO DAILY 06/30/18 Clopidogrel Bisulfate [Plavix] 75 mg PO DAILY 06/30/18 Docusate Sodium [Colace] 2 cap PO HS 06/30/18 Escitalopram Oxalate [Lexapro -] 10 mg PO DAILY 06/30/18 Magnesium Hydroxide [Milk of Magnesia] 400 mg PO PRN 06/30/18 Memantine HCl [Namenda -] 5 mg PO BID 06/30/18 Polyethylene Glycol 3350 [Laxaclear] 1,700 gm PO DAILY 06/30/18 Sennosides [Senna Concentrate] 8.6 mg PO DAILY 06/30/18 Sevelamer Carbonate [Renvela] 800 mg PO TID 06/30/18 Vit B Comp No.3/Folic/C/Biotin [Nephro-Louie Rx Tablet] 1 each PO DAILY 06/30/18 Review of Systems - Review of Systems Able to Perform ROS?: Yes Is the patient limited Pashto proficient: No Constitutional: No: Symptoms Reported HEENTM: No: Symptoms Reported Respiratory: No: Symptoms reported Cardiac (ROS): No: Symptoms Reported ABD/GI: No: Symptoms Reported : No: Symptoms Reported Musculoskeletal: No: Symptoms Reported Integumentary: No: Symptoms Reported Neurological: No: Symptoms reported All Other Systems: Reviewed and Negative <Luis Carlos Guillory - Last Filed: 06/30/18 16:46> *Physical Exam - Vital Signs Last Vital Signs Temp Pulse Resp BP Pulse Ox 98.3 F 98 H 17 101/48 L 99 06/30/18 14:43 06/30/18 14:43 06/30/18 14:43 06/30/18 14:43 06/30/18 14:43 <Ambar Crews - Last Filed: 06/30/18 15:30> - Physical Exam General Appearance: Yes: Nourished, Appropriately Dressed HEENT: positive: EOMI, SHERRELL, Normal ENT Inspection Respiratory/Chest: positive: Lungs Clear, Normal Breath Sounds. negative: Chest Tender, Respiratory Distress Cardiovascular: positive: Irregularly Irregular Gastrointestinal/Abdominal: positive: Normal Bowel Sounds, Flat, Soft. negative : Tender Rectal Exam: positive: melena Musculoskeletal: positive: Normal Inspection. negative: CVA Tenderness Extremity: positive: Other (b/l venous statis over feet with crackling, erythematous skin. ) Integumentary: positive: Normal Color, Dry, Warm Neurologic: positive: Fully Oriented, Alert, Normal Mood/Affect, Normal Response , Motor Strength 5/5 <Luis Carlos Guillory - Last Filed: 06/30/18 16:46> Moderate Sedation - Procedure Monitoring Vital Signs: Procedure Monitoring Vital Signs Temperature 98.3 F 06/30/18 14:43 Pulse Rate 98 H 06/30/18 14:43 Respiratory Rate 17 06/30/18 14:43 Blood Pressure 101/48 L 06/30/18 14:43 O2 Sat by Pulse Oximetry (%) 99 06/30/18 14:43 <Ambar Crews - Last Filed: 06/30/18 15:30> ED Treatment Course - LABORATORY CBC & Chemistry Diagram: 06/30/18 13:30 06/30/18 13:30 - ADDITIONAL ORDERS Additional order review: Laboratory Results 06/30/18 06/30/18 06/30/18 14:50 13:44 13:30 Sodium 136 Potassium 6.1 H* Chloride 100 Carbon Dioxide 15 L Anion Gap 22 H BUN 181 H* Creatinine 7.0 H Creat Clearance w eGFR 7.61 Random Glucose 145 H Lactic Acid 3.8 H* Calcium 8.1 L Total Bilirubin 0.3 AST 19 ALT 19 Alkaline Phosphatase 96 Troponin I 0.04 Total Protein 5.8 L Albumin 2.8 L Stool Occult Blood Positive 06/30/18 13:30 RBC 2.35 L MCV 99.4 H MCHC 30.6 L RDW 16.9 H MPV 10.8 Neutrophils % 78.5 D Lymphocytes % 13.2 D Monocytes % 7.7 Eosinophils % 0.0 D Basophils % 0.6 - Medications Given in the ED: ED Medications Discontinued Medications Generic Name Dose Route Start Last Admin Trade Name Freq PRN Reason Stop Dose Admin Alprazolam 0.5 mg 06/30/18 14:13 06/30/18 14:23 Xanax - PO 06/30/18 14:14 0.5 mg NOW ONE Administration - Additional Consults Time Called: 15:22 (Paged Dr. Machado's service) Time Called: 15:30 (Paged Dr. Beebe service ) Consult/PCP: GI <Ambar Crews - Last Filed: 06/30/18 15:30> - LABORATORY CBC & Chemistry Diagram: 06/30/18 13:30 06/30/18 13:30 <Luis Carlos Guillory - Last Filed: 06/30/18 16:46> Medical Decision Making - Medical Decision Making 06/30/18 15:00 78M with htn and esrd on plavix and aspiring presenting with hypotension, anemia and melena. 06/30/18 15:20 Probable upper GI bleed. Lytes grossly abnormal, consistent with pre-dialysis patient bloodwork. Positive occult blood confirming physical exam. hemoglobin 7.1. Will consult Carter Ayers and admit 06/30/18 15:22 06/30/18 15:[address] Beebe who asked to get orthostatics ordered to determine whether to scope or not. 06/30/18 16:25 Positive orthostatics, communicated with Dr. Beebe who will see patient. Spoke to Dr. Armen Machado who will accept the patient for dialysis and give blood transfusion during. Microblog placed to hospitalist rn peritoneal dialysis. <Luis Carlos Guillory - Last Filed: 06/30/18 16:46> *DC/Admit/Observation/Transfer <Ambar Crews - Last Filed: 06/30/18 15:30> - Discharge Dispostion Decision to Admit order: Yes <Luis Carlos Guillory - Last Filed: 06/30/18 16:46> Diagnosis at time of Disposition: ESRD (end stage renal disease), Acute upper GI bleed, ESRD needing dialysis - Referrals Referrals: ON STAFF,NOT [Primary Care Provider] -
--- NOTE | 2018-06-30 13:52 | PDOC ---
Attending Attestation - HPI HPI: This patient is an 78 year old male with PMHx of HTN, colon ca s/p resection, Afib (on aspirin and Plavix), ESRD, dementia, Renal Osteodystrophy, and PAD who was brought in from Dialysis center for hypotension and anemia. Patient was sent to the ED after 13 minutes of treatment for dialysis, they report he was hypotensive in the 80s & 90s and Hgb was 6.6. Patient currently complaining of right foot pain. History from pt is limited since patient is confused at baseline so it is difficult to determine whether patient is at his baseline mental status. <Ambar Crews - Last Filed: 06/30/18 14:58> - Resident Resident Name: Luis Carlos Guillory - ED Attending Attestation I have performed the following: I have examined & evaluated the patient, The case was reviewed & discussed with the resident, I agree w/resident's findings & plan, Exceptions are as noted - Physicial Exam PE: 06/30/18 16:40 Patient is awake and alert, oriented to self only; Normocephalic, atraumatic EOMI, conjunctiva are pale CTA Irregularly irregular Abdomen is soft, nontender, nondistended AV fistula to the right upper extremity - Medical Decision Making 06/30/18 16:41 Patient is an 78-year-old male with multiple comorbidities, history of end- stage renal disease on hemodialysis who presented with transient hypotension and altered mental status while at hemodialysis. In the ER, patient is hemodynamically stable with evidence of tarry black stools which are guaiac positive. CBC reveals hemoglobin of 7.1. CMP reveals potassium of 6.1 and HCO3 of 15. Will hold Plavix and aspirin. We'll consult GI. Protonic for been administered. Will admit for packed RBC transfusion, hemodialysisand GI eval. pt to be dialised and recieve 2 units of prbcs. <Cheikh Garcia - Last Filed: 06/30/18 16:44>
[2018-06-30] MEDS ORDERED: ALPRAZolam 0.25 MG TABLET PO ONE (14:13)
[2018-06-30] MEDS ORDERED: ALPRAZolam 0.25 MG TABLET ONE (14:18)
[2018-06-30 14:53] VITALS: BMI 25.8
[2018-06-30 15:09] LABS: ALBUMIN 2.8 g/dl (3.4-5.0); ALK PHOS 96 U/L (45-117); ANION GAP 22 MMOL/L (8-16); BILIRUBIN,TOTAL 0.3 mg/dL (0.2-1); CALCIUM 8.1 mg/dL (8.5-10.1); CHLORIDE 100 mmol/L (98-107); CO2 15 mmol/L (21-32); GLUCOSE,RANDOM 145 mg/dL (74-106); SGOT/AST 19 U/L (15-37); SGPT/ALT 19 U/L (13-61); SODIUM 136 mmol/L (136-145); TOT PROT 5.8 g/dl (6.4-8.2)
[2018-06-30 15:11] LABS: BLOOD UREA NITROGEN 181 mg/dL (7-18); POTASSIUM 6.1 mmol/L (3.5-5.1)
[2018-06-30 15:14] LABS: BASO % 0.6 % (0-2.0); HEMATOCRIT 23.3 % (35.4-49); HEMOGLOBIN 7.1 GM/dL (11.7-16.9); LYMPH % 13.2 % (8-40); MCH 30.4 pg (25.7-33.7); MCHC 30.6 g/dl (32.0-35.9); MEAN CELL VOLUME 99.4 fl (80-96); MEAN PLT VOLUME 10.8 fl (7.5-11.1); MONO % 7.7 % (3.8-10.2); NEUT % 78.5 % (42.8-82.8); PLATELET COUNT 118 K/MM3 (134-434); RBC 2.35 M/mm3 (4.00-5.60); RDW 16.9 % (11.9-15.9); WHITE BLOOD COUNT 13.7 K/mm3 (4.0-10.0)
[2018-06-30] MEDS ORDERED: SODIUM CHLORIDE 0.9% 500 ML INFUS.BAG IV ONE (15:22)
[2018-06-30] MEDS ORDERED: ACETAMINOPHEN 1000 MG/100 ML VIAL (NON FORMULARY) IVPB ONE (15:22)
[2018-06-30] MEDS ORDERED: ACETAMINOPHEN INJECTION 100 ML IVPB ONE (15:43)
--- NOTE | 2018-06-30 15:52 | EKG ---
Test Reason : Blood Pressure : / mmHG Vent. Rate : 101 BPM Atrial Rate : 098 BPM P-R Int : 000 ms QRS Dur : 136 ms QT Int : 364 ms P-R-T Axes : 000 -75 144 degrees QTc Int : 471 ms ATRIAL FIBRILLATION WITH RAPID VENTRICULAR RESPONSE LEFT AXIS DEVIATION NON-SPECIFIC INTRA-VENTRICULAR CONDUCTION BLOCK CANNOT RULE OUT ANTEROSEPTAL INFARCT , AGE UNDETERMINED ABNORMAL ECG NO PREVIOUS ECGS AVAILABLE Confirmed by VISH POLLARD, ADRIANNA ([id number]) on 06/30/2018 3:51:50 PM Referred By: Confirmed By:ADRIANNA WAHL MD
[2018-06-30] MEDS ORDERED: PANTOPRAZOLE SODIUM 40 MG VIAL IVPUSH ONE (16:02)
[2018-06-30] MEDS ORDERED: PANTOPRAZOLE SODIUM 40 MG/100 ML BAG IVPB ONE (16:10)
[2018-06-30] MEDS ORDERED: SODIUM CHLORIDE 250 ML IV PRN ×2 (16:21→19:06)
[2018-06-30] MEDS ORDERED: morphine CARPU-JECT 2 MG/1 ML DISP.SYRIN IVPUSH ONE ×2 (16:34→18:29)
[2018-06-30] MEDS ORDERED: MORPHINE SULFATE 2 MG/ML VIAL ONE ×2 (16:35→18:30)
--- NOTE | 2018-06-30 17:24 | HP ---
Admitting History and Physical - Admission Chief Complaint: My shoulder hurts History of Present Illness: Mr Steiner is an 78 year old male who comes from dialysis secondary to hypotension, paleness, and anemia. Patient has history of dementia and cannot give history. His daughter is at the bedside and states that he was feeling weak and and unsteady. He presented to HD and was found to be hypotensive and had a hemoglobin in the 6 range. Because of that he was sent here. Patient himself keeps stating that his shoulder hurts and he wants something for it. Also he keeps asking to be moved from sitting down to standing up. Otherwise I can obtain no history from him. History Source: Family Member Limitations to Obtaining History: Dementia - Past Medical History Cardiovascular: Yes: CAD, HTN Renal/: Yes: Renal Failure - Past Surgical History Past Surgical History: Yes: AV Fistula/Graft - Smoking History Smoking history: Never smoked Have you smoked in the past 12 months: No - Alcohol/Substance Use Hx Alcohol Use: No History of Substance Use: reports: None - Social History Usual Living Arrangement: Yes: Halfway ADL: Support Services History of Recent Travel: No Home Medications - Allergies Allergies/Adverse Reactions: Allergies Allergy/AdvReac Type Severity Reaction Status Date / Time No Known Allergies Allergy Verified 08/15/16 11:51 - Home Medications Home Medications: Ambulatory Orders Alprazolam [Xanax] 0.5 mg PO BID PRN 08/15/16 Aspirin [ASA -] 81 mg PO DAILY 08/15/16 Atenolol [Tenormin -] 50 mg PO DAILY 08/15/16 Oxycodone HCl/Acetaminophen [Percocet 5-325 mg Tablet] 1 tab PO Q6H 08/15/16 Zolpidem Tartrate [Ambien] 5 mg PO HS 08/15/16 traZODone HCL [Trazodone HCl] 50 mg PO HS 08/15/16 Cinacalcet HCl [Sensipar -] 30 mg PO DAILY 06/30/18 Clopidogrel Bisulfate [Plavix] 75 mg PO DAILY 06/30/18 Docusate Sodium [Colace] 2 cap PO HS 06/30/18 Escitalopram Oxalate [Lexapro -] 10 mg PO DAILY 06/30/18 Magnesium Hydroxide [Milk of Magnesia] 400 mg PO PRN 06/30/18 Memantine HCl [Namenda -] 5 mg PO BID 06/30/18 Polyethylene Glycol 3350 [Laxaclear] 1,700 gm PO DAILY 06/30/18 Sennosides [Senna Concentrate] 8.6 mg PO DAILY 06/30/18 Sevelamer Carbonate [Renvela] 800 mg PO TID 06/30/18 Vit B Comp No.3/Folic/C/Biotin [Nephro-Louie Rx Tablet] 1 each PO DAILY 06/30/18 Family Disease History - Family Disease History Family History: Denies (daughter denies) Review of Systems Unable to obtain ROS, reason: dementia Physical Examination Vital Signs: Vital Signs Temperature 36.8 C 06/30/18 14:43 Pulse Rate 108 H 06/30/18 16:23 Respiratory Rate 17 06/30/18 16:23 Blood Pressure 97/50 L 06/30/18 16:23 O2 Sat by Pulse Oximetry (%) 99 06/30/18 14:43 Constitutional: Yes: Well Nourished, Anxious, Pallor Eyes: Yes: Conjunctiva Clear, PERRL HENT: Yes: Atraumatic, Normocephalic Cardiovascular: Yes: Regular Rate and Rhythm. No: Gallop, Murmur, Rub Respiratory: Yes: Regular, CTA Bilaterally. No: Rales, Rhonchi, Wheezes Gastrointestinal: Yes: Normal Bowel Sounds, Soft. No: Distention, Tenderness Extremities: Yes: WNL Edema: No Labs: CBC, BMP 06/30/18 13:30 06/30/18 13:30 Imaging - Results Chest X-ray: Report Reviewed, Image Reviewed EKG: Report Reviewed, Image Reviewed Problem List - Problems (1) Acute upper GI bleed Assessment/Plan: -patient with upper GI bleed -GI consulted -npo -protonix gtt -EGD when medically stable Code(s): K92.2 - GASTROINTESTINAL HEMORRHAGE, UNSPECIFIED (2) Anemia Assessment/Plan: -symptomatic -will need to transfuse 2 units -will transfuse with HD -case d/w nephrology -considered ICU admission, however no beds currently -telemetry bed available and can perform HD on telemetry -do not want to delay care, will admit to telemetry and transfuse with emergent HD -if needed, can transfer to ICU Code(s): D64.9 - ANEMIA, UNSPECIFIED Qualifiers: Anemia type: other cause Other causes of anemia: acute posthemorrhagic Qualified Code(s): D62 - Acute posthemorrhagic anemia (3) Hyperkalemia Assessment/Plan: -emergent HD as above -monitor on telemetry -case d/w nephrology Code(s): E87.5 - HYPERKALEMIA (4) Atrial fibrillation with RVR Assessment/Plan: -expect improvement with transfusion -hold gertrude agents secondary to hypotension -cardiology consulted Code(s): I48.91 - UNSPECIFIED ATRIAL FIBRILLATION (5) ESRD (end stage renal disease) Assessment/Plan: -emergent HD Code(s): N18.6 - END STAGE RENAL DISEASE (6) HTN (hypertension) Assessment/Plan: -currently hypotensive -holding antihypertensives at this time Code(s): I10 - ESSENTIAL (PRIMARY) HYPERTENSION (7) Thrombocytopenia Assessment/Plan: -monitor Code(s): D69.6 - THROMBOCYTOPENIA, UNSPECIFIED (8) Lactic acid acidosis Assessment/Plan: -suspect secondary to anemia Code(s): E87.2 - ACIDOSIS Assessment/Plan 70 minutes in critical care time spent with this patient
--- NOTE | 2018-06-30 17:56 | CON.GI ---
Consult Consult Specialty:: GI - History of Present Illness History of Present Illness: 78 y/o male with PMH of CAD, ESRD on Plavix and Aspirin was admitted with orthostatic hypotension,anemia, and melena. He was having dialysis and was aborted because of hypotension. - History Source History Provided By: Family Member (daughter) - Past Medical History Cardio/Vascular: Yes: CAD, HTN Renal/: Yes: Renal Failure - Past Surgical History Past Surgical History: Yes: AV Fistula/Graft - Alcohol/Substance Use Hx Alcohol Use: No - Smoking History Smoking history: Never smoked Have you smoked in the past 12 months: No - Social History Usual Living Arrangement: Alf Home Medications - Allergies Allergies/Adverse Reactions: Allergies Allergy/AdvReac Type Severity Reaction Status Date / Time No Known Allergies Allergy Verified 08/15/16 11:51 - Home Medications Home Medications: Ambulatory Orders Alprazolam [Xanax] 0.5 mg PO BID PRN 08/15/16 Aspirin [ASA -] 81 mg PO DAILY 08/15/16 Atenolol [Tenormin -] 50 mg PO DAILY 08/15/16 Oxycodone HCl/Acetaminophen [Percocet 5-325 mg Tablet] 1 tab PO Q6H 08/15/16 Zolpidem Tartrate [Ambien] 5 mg PO HS 08/15/16 traZODone HCL [Trazodone HCl] 50 mg PO HS 08/15/16 Cinacalcet HCl [Sensipar -] 30 mg PO DAILY 06/30/18 Clopidogrel Bisulfate [Plavix] 75 mg PO DAILY 06/30/18 Docusate Sodium [Colace] 2 cap PO HS 06/30/18 Escitalopram Oxalate [Lexapro -] 10 mg PO DAILY 06/30/18 Magnesium Hydroxide [Milk of Magnesia] 400 mg PO PRN 06/30/18 Memantine HCl [Namenda -] 5 mg PO BID 06/30/18 Polyethylene Glycol 3350 [Laxaclear] 1,700 gm PO DAILY 06/30/18 Sennosides [Senna Concentrate] 8.6 mg PO DAILY 06/30/18 Sevelamer Carbonate [Renvela] 800 mg PO TID 06/30/18 Vit B Comp No.3/Folic/C/Biotin [Nephro-Louie Rx Tablet] 1 each PO DAILY 06/30/18 Physical Exam-GI Vital Signs: Vital Signs Temperature 98.3 F 06/30/18 14:43 Pulse Rate 108 H 06/30/18 16:23 Respiratory Rate 17 06/30/18 16:23 Blood Pressure 97/50 L 06/30/18 16:23 O2 Sat by Pulse Oximetry (%) 99 06/30/18 14:43 Constitutional: Yes: Well Nourished Eyes: Yes: Conjunctiva Clear HENT: Yes: Atraumatic Neck: Yes: Supple Cardiovascular: Yes: Regular Rate and Rhythm Respiratory: Yes: CTA Bilaterally ...Palpate: Yes: Soft. No: Firm/Rigid, Guarding, Hepatomegaly, Mass, Pulsatile Mass, Splenomegaly, Tenderness Labs: CBC, BMP 06/30/18 13:30 06/30/18 13:30 Problem List - Problems (1) Acute upper GI bleed Assessment/Plan: R> transfuse 2 units of PRBC consider ICU admission IV Protonix for EGD once medically stable. Code(s): K92.2 - GASTROINTESTINAL HEMORRHAGE, UNSPECIFIED
[2018-06-30] MEDS ORDERED: LORazepam 2 MG/ML SDV VIAL ONE (18:33)
[2018-06-30] MEDS: PANTOPRAZOLE SODIUM 80 MG in SODIUM CHLORIDE 100 ML IVPB SCH (19:00)
--- NOTE | 2018-06-30 19:14 | CONSULT ---
Consult - text type - Consultation Consultation Note: Renal Consult for ESRD on HD, Acute Anemia This is a 78 year old gentleman with hx of ESRD on HD, Hypertension, Dementia, Afib (on ASA, Plavix), hx Colon Ca who presented from the outpatient dialysis unit with hyoptension and acute anemia and found to have GIB and Anemia. Pt did not have a complete dialysis today. Hgb from 06/09 was 11.5 at dialysis. Pt complains of chest pain that started after he came to the ER. No Fever, chills. + Nausea in the ER. Noted to have melena. PMhx: as above Allergies: NKDA Family hx: NC Social hx: No T/A/D ROS: as per HPI Vital Signs Temperature 98.3 F 06/30/18 14:43 Pulse Rate 104 H 06/30/18 18:41 Respiratory Rate 17 06/30/18 18:41 Blood Pressure 118/76 06/30/18 18:41 O2 Sat by Pulse Oximetry (%) 98 06/30/18 18:41 Intake & Output 06/27/18 06/28/18 06/29/18 06/30/18 23:59 23:59 23:59 23:59 Weight 79.379 kg NAD awake and alert neck supple, no JVD RRR, No M/R Dec Bs soft, obese, NT/ND Abd No Le edema CBC, BMP 06/30/18 13:30 06/30/18 13:30 Laboratory Tests 06/30/18 06/30/18 13:30 13:44 Lactic Acid 3.8 H* Calcium 8.1 L Albumin 2.8 L Current Medications Acetaminophen (Tylenol -) 650 mg PO Q4H PRN PRN Reason: FEVER Albumin Human (Albumin Human 25%) 12.5 gm IVPB Q30M [facility] Cinacalcet (Sensipar -) 30 mg PO DAILY [facility] Docusate Sodium (Colace -) 100 mg PO HS [facility] Escitalopram Oxalate (Lexapro -) 10 mg PO DAILY [facility] Pantoprazole Sodium 80 mg/ (Sodium Chloride) 100 mls @ 10 mls/hr IVPB Q10H [facility] Sodium Chloride (Normal Saline -) 250 mls @ 3,000 mls/hr IV PRN PRN PRN Reason: Hypotension during Dialysis Stop: 07/01/18 19:06 Memantine (Namenda -) 5 mg PO BID [facility] Multivit/Ca Carb/B Cmplx/FA/Prenat (Nephro-Louie -) 1 tablet PO DAILY [facility] Senna (Senna -) 1 tab PO DAILY [facility] Sevelamer Carbonate (Renvela -) 800 mg PO TIDCM [facility] 78 year old gentleman with hx of ESRD on HD, Hypertension, Dementia, Afib (on ASA, Plavix), hx Colon Ca who presented from the outpatient dialysis unit with hyoptension and acute anemia and found to have GIB and Anemia. #Acute Anemia with GIB #Hypovolemia/Hypotension #Hyperkalemia #ESRD on HD #Afib #Chest Pain Will plan for urgent HD as inpatient this evening will transfuse 2 units prbc with dialysis will use albumin PRN for hypotension keep MAP > 65 NPO for now Trend CBC, can repeat 2 hours after dialysis completed to ensure pt has apporiate response to PRBC transfusion Cardiology follow up Repeat EKG done in the ER showed no acute ischemic changes Thank you Will follow Armen Machado DO
[2018-06-30] MEDS: ALBUMIN HUMAN 25% 12.5 GM/50 ML VIAL IVPB SCH ×4 (21:05→22:35)
[2018-06-30] MEDS ORDERED: DOCUSATE SODIUM 100 MG CAPSULE (FP) PO SCH (22:00)
[2018-06-30] MEDS ORDERED: MELATONIN 5 MG TABLETS PO ONE (22:40)
[2018-06-30] MEDS: ACETAMINOPHEN 325 MG TABLET (FP) PO PRN (22:51)
[2018-06-30] MEDS: MEMANTINE HCL 5 MG TABLET (UD) PO SCH (22:51)
[2018-07-01] MEDS ORDERED: LORazepam 2 MG/ML SDV VIAL IVPUSH ONE (01:45)
[2018-07-01] MEDS: PANTOPRAZOLE SODIUM 80 MG in SODIUM CHLORIDE 100 ML IVPB SCH ×2 (03:23→13:51)
[2018-07-01] MEDS: ACETAMINOPHEN 325 MG TABLET (FP) PO PRN ×2 (06:02→18:25)
[2018-07-01 06:45] LABS: BASO % 0.4 % (0-2.0); EOS % 0.1 % (0-4.5); HEMATOCRIT 23.8 % (35.4-49); HEMOGLOBIN 8.3 GM/dL (11.7-16.9); LYMPH % 10.5 % (8-40); MEAN CELL VOLUME 91.4 fl (80-96); MEAN PLT VOLUME 10.1 fl (7.5-11.1); MONO % 11.9 % (3.8-10.2); NEUT % 77.1 % (42.8-82.8); PLATELET COUNT 114 K/MM3 (134-434); RBC 2.61 M/mm3 (4.00-5.60); RDW 17.1 % (11.9-15.9); WHITE BLOOD COUNT 12.5 K/mm3 (4.0-10.0)
[2018-07-01 07:00] LABS: INR 1.32 (0.83-1.09); PROTHROMBIN TIME (PATIENT) 15.6 SEC (9.7-13.0)
[2018-07-01 07:20] LABS: ANION GAP 18 MMOL/L (8-16); BLOOD UREA NITROGEN 86 mg/dL (7-18); CALCIUM 8.6 mg/dL (8.5-10.1); CHLORIDE 97 mmol/L (98-107); CO2 23 mmol/L (21-32); CREATININE 4.3 mg/dL (0.55-1.3); GLUCOSE,RANDOM 139 mg/dL (74-106); PHOSPHOROUS 4.3 mg/dL (2.5-4.9); POTASSIUM 3.9 mmol/L (3.5-5.1); SODIUM 138 mmol/L (136-145)
[2018-07-01] MEDS ORDERED: CINACALCET HCL 30 MG TAB (FP) PO SCH (10:00)
[2018-07-01] MEDS ORDERED: VITAMIN B COMP W-C 1 EA TABLET PO SCH (10:00)
[2018-07-01] MEDS ORDERED: POLYETHYLENE GLYCOL 3350 255 GM BTL PO SCH (10:00)
[2018-07-01] MEDS ORDERED: ESCITALOPRAM OXALATE 10 MG TABLET (FP) PO SCH (10:00)
[2018-07-01] MEDS ORDERED: SENNOSIDES 8.6MG TABLET (FP) PO SCH (10:00)
[2018-07-01] MEDS ORDERED: PT OWN MED DRAWER 7, Y5N ONE ×3 (10:04→13:47)
[2018-07-01] MEDS: MEMANTINE HCL 5 MG TABLET (UD) PO SCH ×2 (10:16→21:41)
[2018-07-01] MEDS: SEVELAMER CARBONATE 800 MG TAB (FP) PO SCH ×4 (10:17→17:14)
--- NOTE | 2018-07-01 11:01 | PN ---
Progress Note (short form) - Note Progress Note: Renal follow up for ESRD on HD Pt seen and examined at the bedside has no acute complaints at this time no sob, cp, abd pain s/p EGD this am s/p dialysis yesterday evening with 2 prbc transfusion Vital Signs Temperature 97.9 F 07/01/18 06:06 Pulse Rate 103 H 07/01/18 06:06 Respiratory Rate 16 07/01/18 06:06 Blood Pressure 128/75 07/01/18 06:06 O2 Sat by Pulse Oximetry (%) 98 06/30/18 21:00 Intake & Output 06/28/18 06/29/18 06/30/18 07/01/18 23:59 23:59 23:59 23:59 Intake Total 170 Balance 170 Weight 79.379 kg NAD neck supple, no JVD No LE edema CBC, BMP 07/01/18 06:00 07/01/18 06:00 Current Medications Acetaminophen (Tylenol -) 650 mg PO Q4H PRN PRN Reason: FEVER Last Admin: 07/01/18 06:02 Dose: 650 mg Cinacalcet (Sensipar -) 30 mg PO DAILY [facility] Docusate Sodium (Colace -) 100 mg PO HS [facility] Last Admin: 06/30/18 22:52 Dose: 100 mg Escitalopram Oxalate (Lexapro -) 10 mg PO DAILY [facility] Last Admin: 07/01/18 10:16 Dose: 10 mg Pantoprazole Sodium 80 mg/ (Sodium Chloride) 100 mls @ 10 mls/hr IVPB Q10H [facility] Last Admin: 07/01/18 03:23 Dose: 10 mls/hr Sodium Chloride (Normal Saline -) 250 mls @ 3,000 mls/hr IV PRN PRN PRN Reason: Hypotension during Dialysis Stop: 07/01/18 19:06 Memantine (Namenda -) 5 mg PO BID [facility] Last Admin: 07/01/18 10:16 Dose: 5 mg Multivit/Ca Carb/B Cmplx/FA/Prenat (Nephro-Louie -) 1 tablet PO DAILY [facility] Senna (Senna -) 1 tab PO DAILY [facility] Last Admin: 07/01/18 10:16 Dose: 1 tab Sevelamer Carbonate (Renvela -) 800 mg PO TIDCM [facility] Last Admin: 07/01/18 10:18 Dose: 800 mg 78 year old gentleman with hx of ESRD on HD, Hypertension, Dementia, Afib (on ASA, Plavix), hx Colon Ca who presented from the outpatient dialysis unit with hyoptension and acute anemia and found to have GIB and Anemia. #Acute Anemia with GIB with EGD showing non-bleeding ulcer in stomach #Hypovolemia/Hypotension #Hyperkalemia (resolved s/p dialysis) #ESRD on HD #Afib #Chest Pain (negative cardiac enzymes) s/p urgent HD yesterday evening, no additional CLINICAL RESOURCE NURSE needed today will plan for next dialysis tomorrow morning will check Hgb with HD, will transfuse PRBC if Hgb < 8 Renal diet once cleared by VALENTIN Machado DO
--- NOTE | 2018-07-01 11:15 | CON.CARD ---
Cardiology Consult (text) - Consultation Consultation Note: cc: hypotension in hd hpi: 78 m hx afib, esrd hd, htn, dementia, sent from hd with low bp and anemia. Pt denies cp sob palps dizzy loc pnd orthopnea le edema. Had melena, plans for egd when stable. pmh: per hpi psh: foot debridement social: no tob fam: non contrib ros: per hpi; no fever nvd hematuria dysuria, parekh, vision changes meds: Ambulatory Orders Alprazolam [Xanax] 0.5 mg PO BID PRN 08/15/16 Aspirin [ASA -] 81 mg PO DAILY 08/15/16 Atenolol [Tenormin -] 50 mg PO DAILY 08/15/16 Oxycodone HCl/Acetaminophen [Percocet 5-325 mg Tablet] 1 tab PO Q6H 08/15/16 Zolpidem Tartrate [Ambien] 5 mg PO HS 08/15/16 traZODone HCL [Trazodone HCl] 50 mg PO HS 08/15/16 Cinacalcet HCl [Sensipar -] 30 mg PO DAILY 06/30/18 Clopidogrel Bisulfate [Plavix] 75 mg PO DAILY 06/30/18 Docusate Sodium [Colace] 2 cap PO HS 06/30/18 Escitalopram Oxalate [Lexapro -] 10 mg PO DAILY 06/30/18 Magnesium Hydroxide [Milk of Magnesia] 400 mg PO PRN 06/30/18 Memantine HCl [Namenda -] 5 mg PO BID 06/30/18 Polyethylene Glycol 3350 [Laxaclear] 1,700 gm PO DAILY 06/30/18 Sennosides [Senna Concentrate] 8.6 mg PO DAILY 06/30/18 Sevelamer Carbonate [Renvela] 800 mg PO TID 06/30/18 Vit B Comp No.3/Folic/C/Biotin [Nephro-Louie Rx Tablet] 1 each PO DAILY 06/30/18 pe: Vital Signs Period Temp Pulse Resp BP Sys/Medina Pulse Ox Last 24 Hr 97.3 F-98.3 F 64-110 16-18 90-135/43-76 98-100 nad no jvd irreg s1s2 no mrg cta bl nl eff awake alert appropriate no jaundice diaphoresis pos dp pt no carotid bruits abd nt nd pos bs no le edema Laboratory Last Values WBC 12.5 K/mm3 (4.0-10.0) H 07/01/18 06:00 RBC 2.61 M/mm3 (4.00-5.60) L 07/01/18 06:00 Hgb 8.3 GM/dL (11.7-16.9) L 07/01/18 06:00 Hct 23.8 % (35.4-49) L 07/01/18 06:00 MCV 91.4 fl (80-96) D 07/01/18 06:00 MCH 32.0 pg (25.7-33.7) 07/01/18 06:00 MCHC 35.0 g/dl (32.0-35.9) 07/01/18 06:00 RDW 17.1 % (11.9-15.9) H 07/01/18 06:00 Plt Count 114 K/MM3 (134-434) L 07/01/18 06:00 MPV 10.1 fl (7.5-11.1) 07/01/18 06:00 Absolute Neuts (auto) 9.6 K/mm3 (1.5-8.0) H 07/01/18 06:00 Neutrophils % 77.1 % (42.8-82.8) 07/01/18 06:00 Lymphocytes % 10.5 % (8-40) D 07/01/18 06:00 Monocytes % 11.9 % (3.8-10.2) H 07/01/18 06:00 Eosinophils % 0.1 % (0-4.5) D 07/01/18 06:00 Basophils % 0.4 % (0-2.0) 07/01/18 06:00 Nucleated RBC % 0 % (0-0) 07/01/18 06:00 PT with INR 15.60 SEC (9.7-13.0) H 07/01/18 06:00 INR 1.32 (0.83-1.09) H 07/01/18 06:00 PTT (Actin FS) 24.0 SECONDS (25.2-36.5) L 07/01/18 06:00 Sodium 138 mmol/L (136-145) 07/01/18 06:00 Potassium 3.9 mmol/L (3.5-5.1) 07/01/18 06:00 Chloride 97 mmol/L (98-107) L 07/01/18 06:00 Carbon Dioxide 23 mmol/L (21-32) 07/01/18 06:00 Anion Gap 18 MMOL/L (8-16) H 07/01/18 06:00 BUN 86 mg/dL (7-18) H 07/01/18 06:00 Creatinine 4.3 mg/dL (0.55-1.3) H 07/01/18 06:00 Creat Clearance w eGFR 13.36 (>60) 07/01/18 06:00 Random Glucose 139 mg/dL (74-106) H 07/01/18 06:00 Lactic Acid 3.8 mmol/L (0.4-2.0) H* 06/30/18 13:44 Calcium 8.6 mg/dL (8.5-10.1) 07/01/18 06:00 Phosphorus 4.3 mg/dL (2.5-4.9) 07/01/18 06:00 Magnesium 2.0 mg/dL (1.8-2.4) 07/01/18 06:00 Total Bilirubin 0.3 mg/dL (0.2-1) 06/30/18 13:30 AST 19 U/L (15-37) 06/30/18 13:30 ALT 19 U/L (13-61) 06/30/18 13:30 Alkaline Phosphatase 96 U/L (45-117) 06/30/18 13:30 Creatine Kinase 130 IU/L (26-308) 07/01/18 06:00 Troponin I 0.12 ng/ml (0.00-0.05) H 07/01/18 06:00 Total Protein 5.8 g/dl (6.4-8.2) L 06/30/18 13:30 Albumin 2.8 g/dl (3.4-5.0) L 06/30/18 13:30 Stool Occult Blood Positive (NEGATIVE) 06/30/18 14:50 Hep C Ab Diagnostic Cancelled 06/30/18 21:00 Hepatitis C RNA Cancelled 06/30/18 21:00 HCV RNA PCR log blueprinting and photocopy supervisor/ml Cancelled 06/30/18 21:00 HCV RNA (PCR) IUs/ml Cancelled 06/30/18 21:00 HCV RNA PCR w/Genot Rflx Cancelled 06/30/18 21:00 Liver Fibrosis Interp Cancelled 06/30/18 21:00 Blood Type A POSITIVE 06/30/18 16:30 Antibody Screen Negative 06/30/18 16:30 Crossmatch See Detail 06/30/18 16:30 cxr: clear lungs ecg: afib, nonspec ivcd tele: afib, rate controlled a/p: 78 m hx afib, esrd hd, htn, dementia, sent from hd with low bp and anemia. afib: -on atenolol at home, bp too low here to give now, likely due to anemia. currently hr acceptable, monitor on tele -was on asa and plavix at home. pt reports he was on coumadin years ago but was stopped due to unknown reasons -given his anemia and gib, hold dapt for now. esrd: -cont hd per renal htn: -bp low, holding home meds for now. correct anemia. anemia, gib: -transfuse prn -gi following, plans for egd when stable -will check echo -bp still low, sbp 90s this AM -cont to trend ce's, no signs acs so far
--- NOTE | 2018-07-01 11:59 | EKG ---
Test Reason : Blood Pressure : / mmHG Vent. Rate : 107 BPM Atrial Rate : 111 BPM P-R Int : 000 ms QRS Dur : 144 ms QT Int : 400 ms P-R-T Axes : 000 -79 128 degrees QTc Int : 534 ms ATRIAL FIBRILLATION WITH RAPID VENTRICULAR RESPONSE LEFT AXIS DEVIATION NON-SPECIFIC INTRA-VENTRICULAR CONDUCTION BLOCK CANNOT RULE OUT ANTEROSEPTAL INFARCT (CITED ON OR BEFORE 30-JUN-2018) T WAVE ABNORMALITY, CONSIDER LATERAL ISCHEMIA ABNORMAL ECG WHEN COMPARED WITH ECG OF 30-JUN-2018 13:10, QT HAS LENGTHENED Confirmed by SILVER POLLARD, MENDOZA ([id number]) on 07/01/2018 11:58:49 AM Referred By: Confirmed By:MENDOZA SHEPPARD MD
--- NOTE | 2018-07-01 14:22 | PN ---
Progress Note, Physician Chief Complaint: Mr Steiner says he is feeling better today. No cp, sob, n/v. Currently without chest pain. - Current Medication List Current Medications: Active Medications Acetaminophen (Tylenol -) 650 mg PO Q4H PRN PRN Reason: FEVER Last Admin: 07/01/18 06:02 Dose: 650 mg Cinacalcet (Sensipar -) 30 mg PO DAILY [facility] Last Admin: 07/01/18 11:30 Dose: 30 mg Docusate Sodium (Colace -) 100 mg PO HS [facility] Last Admin: 06/30/18 22:52 Dose: 100 mg Escitalopram Oxalate (Lexapro -) 10 mg PO DAILY [facility] Last Admin: 07/01/18 10:16 Dose: 10 mg Pantoprazole Sodium 80 mg/ (Sodium Chloride) 100 mls @ 10 mls/hr IVPB Q10H [facility] Last Admin: 07/01/18 13:51 Dose: 10 mls/hr Sodium Chloride (Normal Saline -) 250 mls @ 3,000 mls/hr IV PRN PRN PRN Reason: Hypotension during Dialysis Stop: 07/01/18 19:06 Memantine (Namenda -) 5 mg PO BID [facility] Last Admin: 07/01/18 10:16 Dose: 5 mg Multivit/Ca Carb/B Cmplx/FA/Prenat (Nephro-Louie -) 1 tablet PO DAILY [facility] Last Admin: 07/01/18 11:30 Dose: 1 tablet Senna (Senna -) 1 tab PO DAILY [facility] Last Admin: 07/01/18 10:16 Dose: 1 tab Sevelamer Carbonate (Renvela -) 800 mg PO TIDCM [facility] Last Admin: 07/01/18 13:51 Dose: Not Given - Objective Vital Signs: Vital Signs Temperature 36.6 C 07/01/18 06:06 Pulse Rate 91 H 07/01/18 13:39 Respiratory Rate 16 07/01/18 06:06 Blood Pressure 124/54 L 07/01/18 13:39 O2 Sat by Pulse Oximetry (%) 98 06/30/18 21:00 Constitutional: Yes: Well Nourished, No Distress, Calm Cardiovascular: Yes: Regular Rate and Rhythm. No: Gallop, Murmur, Rub Respiratory: Yes: Regular, CTA Bilaterally. No: Rales, Rhonchi, Wheezes Gastrointestinal: Yes: Normal Bowel Sounds, Soft. No: Distention, Tenderness Extremities: Yes: WNL Edema: No Labs: CBC, BMP 07/01/18 06:00 07/01/18 06:00 INR, PTT INR 1.32 (0.83-1.09) H 07/01/18 06:00 Problem List - Problems (1) Acute upper GI bleed Code(s): K92.2 - GASTROINTESTINAL HEMORRHAGE, UNSPECIFIED (2) Anemia Code(s): D64.9 - ANEMIA, UNSPECIFIED Qualifiers: Anemia type: other cause Other causes of anemia: acute posthemorrhagic Qualified Code(s): D62 - Acute posthemorrhagic anemia (3) Hyperkalemia Code(s): E87.5 - HYPERKALEMIA (4) Atrial fibrillation with RVR Code(s): I48.91 - UNSPECIFIED ATRIAL FIBRILLATION (5) ESRD (end stage renal disease) Code(s): N18.6 - END STAGE RENAL DISEASE (6) HTN (hypertension) Code(s): I10 - ESSENTIAL (PRIMARY) HYPERTENSION (7) Thrombocytopenia Code(s): D69.6 - THROMBOCYTOPENIA, UNSPECIFIED (8) Lactic acid acidosis Code(s): E87.2 - ACIDOSIS Assessment/Plan (1) Acute upper GI bleed Assessment/Plan: -continue PPI gtt -GI following -planning for EGD today Code(s): K92.2 - GASTROINTESTINAL HEMORRHAGE, UNSPECIFIED (2) Anemia Assessment/Plan: -much improved after transfusion -continue PPI gtt -monitor for further transfusions Code(s): D64.9 - ANEMIA, UNSPECIFIED Qualifiers: Anemia type: other cause Other causes of anemia: acute posthemorrhagic Qualified Code(s): D62 - Acute posthemorrhagic anemia (3) Hyperkalemia Assessment/Plan: -resolved after HD Code(s): E87.5 - HYPERKALEMIA (4) Atrial fibrillation with RVR Assessment/Plan: -controlled -appreciate cardiology assistance -no need for gertrude agents currently Code(s): I48.91 - UNSPECIFIED ATRIAL FIBRILLATION (5) ESRD (end stage renal disease) Assessment/Plan: -continue HD per nephrology Code(s): N18.6 - END STAGE RENAL DISEASE (6) HTN (hypertension) Assessment/Plan: -currently hypotensive -holding antihypertensives at this time Code(s): I10 - ESSENTIAL (PRIMARY) HYPERTENSION (7) Thrombocytopenia Assessment/Plan: -monitor Code(s): D69.6 - THROMBOCYTOPENIA, UNSPECIFIED (8) Lactic acid acidosis Assessment/Plan: -suspect secondary to anemia Code(s): E87.2 - ACIDOSIS
[2018-07-01] MEDS ORDERED: PROPOFOL 20 ML ONE (14:25)
--- NOTE | 2018-07-01 14:52 | ECHO ---
Name: KEELEY MOCK Exam:Adult Echocardiogram Study Date: 07/01/2018 12:43 PM Age: 78 yrs Reason For Study: a fib Height: 69 in Weight: 175 lb BSA: 2.0 m2 MMode/2D Measurements & Calculations IVSd: 1.0 cm Ao root diam: 3.7 cm LVIDd: 4.6 cm LA dimension: 5.3 cm LVIDs: 2.8 cm ACS: 1.4 cm LVPWd: 0.92 cm IVSs: 1.5 cm LVPWs: 1.6 cm EDV(Teich): 95.5 ml ESV(Teich): 29.6 ml Doppler Measurements & Calculations Ao V2 max: 79.9 cm/sec AI max anel: 255.2 cm/sec Ao max P.6 mmHg AI max P.0 mmHg Ao V2 mean: 57.2 cm/sec Ao mean P.5 mmHg AI dec slope: 170.8 cm/sec2 Ao V2 VTI: 14.5 cm AI P1/2t: 437.5 msec TR max anel: 283.3 cm/sec TR max P.2 mmHg Procedure A complete two-dimensional transthoracic echocardiogram was performed (2D, M-mode, Doppler and color flow Doppler). Left Ventricle The left ventricular size, thickness and function are normal. The left ventricular ejection fraction is normal. Ejection Fraction = 55-60%. The left ventricular wall motion is normal. Right Ventricle The right ventricle is normal in size and function. Atria The left atrium is moderately dilated. The right atrium is mildly dilated. Mitral Valve There is trace mitral regurgitation. Tricuspid Valve There is mild to moderate tricuspid regurgitation. Right ventricular systolic pressure is normal. Aortic Valve No hemodynamically significant valvular aortic stenosis. No aortic regurgitation is present. Pulmonic Valve There is no pulmonic valvular regurgitation. Great Vessels The aortic root is normal size. Pericardium/Pleura Trivial pericardial effusion not hemodynamically significant. Interpretation Summary The left ventricular size, thickness and function are normal The right ventricle is normal in size and function. The left atrium is moderately dilated. The right atrium is mildly dilated. There is trace mitral regurgitation. There is mild to moderate tricuspid regurgitation. MD Raymundo Stacy 07/01/2018 02:52 PM
[2018-07-01] MEDS ORDERED: SODIUM CHLORIDE 250 ML IV PRN (16:41)
[2018-07-01] MEDS: DOCUSATE SODIUM 100 MG CAPSULE (FP) PO SCH (21:42)
[2018-07-02] MEDS: PANTOPRAZOLE SODIUM 80 MG in SODIUM CHLORIDE 100 ML IVPB SCH ×3 (00:25→22:54)
[2018-07-02] MEDS: ACETAMINOPHEN 325 MG TABLET (FP) PO PRN ×4 (02:24→20:00)
[2018-07-02] MEDS ORDERED: SODIUM CHLORIDE 250 ML IV PRN (07:07)
[2018-07-02 08:08] LABS: BASO % 0.3 % (0-2.0); EOS % 0.1 % (0-4.5); HEMATOCRIT 22.7 % (35.4-49); LYMPH % 12.2 % (8-40); MCH 32.5 pg (25.7-33.7); MCHC 35.3 g/dl (32.0-35.9); MEAN CELL VOLUME 92.1 fl (80-96); NEUT % 72.4 % (42.8-82.8); PLATELET COUNT 113 K/MM3 (134-434); RBC 2.46 M/mm3 (4.00-5.60); RDW 16.8 % (11.9-15.9); WHITE BLOOD COUNT 10.6 K/mm3 (4.0-10.0)
[2018-07-02] MEDS: SEVELAMER CARBONATE 800 MG TAB (FP) PO SCH ×3 (08:43→17:50)
[2018-07-02] MEDS ORDERED: EPOETIN ALFA 20,000 UNIT/1 ML VIAL IVPUSH ONE (09:00)
[2018-07-02] MEDS ORDERED: PT OWN MED DRAWER 7, Y5N ONE ×2 (09:00→09:47)
[2018-07-02 09:04] LABS: ANION GAP 14 MMOL/L (8-16); BLOOD UREA NITROGEN 100 mg/dL (7-18); CALCIUM 8.7 mg/dL (8.5-10.1); CHLORIDE 99 mmol/L (98-107); CO2 24 mmol/L (21-32); GLUCOSE,RANDOM 118 mg/dL (74-106); MAGNESIUM 2.4 mg/dL (1.8-2.4); PHOSPHOROUS 6.2 mg/dL (2.5-4.9); POTASSIUM 4.8 mmol/L (3.5-5.1); SODIUM 138 mmol/L (136-145)
--- NOTE | 2018-07-02 11:03 | PN ---
Progress Note (short form) - Note Progress Note: s: no cp sob palps dizzy o: Vital Signs Period Temp Pulse Resp BP Sys/Medina Pulse Ox Last 24 Hr 97.3 F-98.5 F 71-100 18-24 92-127/41-72 95-98 nad no jvd irreg s1s2 no mrg cta bl nl eff awake alert appropriate no jaundice diaphoresis abd nt nd pos bs no le edema Current Medications Generic Name Dose Route Start Last Admin Trade Name Freq PRN Reason Stop Dose Admin Acetaminophen 650 mg 07/01/18 16:41 07/02/18 08:43 Tylenol - PO 650 mg Q4H PRN Administration FEVER Cinacalcet 30 mg 07/02/18 10:00 Sensipar - PO DAILY [facility]ARCUS Docusate Sodium 100 mg 07/01/18 22:00 07/01/18 21:42 Colace - PO 100 mg HS [facility] Administration Escitalopram Oxalate 10 mg 07/02/18 10:00 Lexapro - PO DAILY [facility] Pantoprazole Sodium 80 mg/ 100 mls @ 10 mls/hr 07/01/18 23:30 07/02/18 00:25 Sodium Chloride IVPB Not Given Q10H [facility]US 8 MG/HR Sodium Chloride 250 mls @ 3,000 mls/hr 07/02/18 07:07 Normal Saline - IV 07/03/18 07:06 PRN PRN Hypotension during Dialysis Memantine 5 mg 07/01/18 22:00 07/01/18 21:41 Namenda - PO 5 mg BID [facility]US Administration Multivit/Ca Carb/B Cmplx/FA/Prenat 1 tablet 07/02/18 10:00 Nephro-Louie - PO DAILY [facility] Senna 1 tab 07/02/18 10:00 Senna - PO DAILY [facility] Sevelamer Carbonate 800 mg 07/01/18 17:30 07/02/18 08:43 Renvela - PO 800 mg TIDCM [facility] Administration CBC, BMP 07/02/18 07:30 07/02/18 07:30 cxr: clear lungs ecg: afib, nonspec ivcd tele: afib, rate controlled echo 06/2018: nl lv/rv, sandra, mild-mod tr, nl rvsp a/p: 78 m hx afib, esrd hd, htn, dementia, sent from hd with low bp and anemia. afib: -on atenolol at home, bp too low here to give now, likely due to anemia. currently hr acceptable, monitor on tele -was on asa and plavix at home. pt reports he was on coumadin years ago but was stopped due to unknown reasons -given his anemia and gib, hold dapt for now until acceptable risk per GI esrd: -cont hd per renal htn: -bp was low, likely from anemia, now improving. holding home meds for now. anemia, gib: -transfuse prn -gi following, egd shows ulcer, erosions
--- NOTE | 2018-07-02 11:11 | PN ---
Progress Note, Physician Chief Complaint: Mr Steiner complains of headache but otherwise is without complaint. No c, sob, n/v. - Current Medication List Current Medications: Active Medications Acetaminophen (Tylenol -) 650 mg PO Q4H PRN PRN Reason: FEVER Last Admin: 07/02/18 08:43 Dose: 650 mg Cinacalcet (Sensipar -) 30 mg PO DAILY [facility] Docusate Sodium (Colace -) 100 mg PO HS [facility] Last Admin: 07/01/18 21:42 Dose: 100 mg Escitalopram Oxalate (Lexapro -) 10 mg PO DAILY [facility] Pantoprazole Sodium 80 mg/ (Sodium Chloride) 100 mls @ 10 mls/hr IVPB Q10H [facility] Last Admin: 07/02/18 00:25 Dose: Not Given Sodium Chloride (Normal Saline -) 250 mls @ 3,000 mls/hr IV PRN PRN PRN Reason: Hypotension during Dialysis Stop: 07/03/18 07:06 Memantine (Namenda -) 5 mg PO BID [facility] Last Admin: 07/01/18 21:41 Dose: 5 mg Multivit/Ca Carb/B Cmplx/FA/Prenat (Nephro-Louie -) 1 tablet PO DAILY [facility] Senna (Senna -) 1 tab PO DAILY [facility] Sevelamer Carbonate (Renvela -) 800 mg PO TIDCM [facility] Last Admin: 07/02/18 08:43 Dose: 800 mg - Objective Vital Signs: Vital Signs Temperature 36.4 C L 07/02/18 08:51 Pulse Rate 71 07/02/18 10:50 Respiratory Rate 18 07/02/18 10:50 Blood Pressure 105/47 L 07/02/18 10:50 O2 Sat by Pulse Oximetry (%) 95 07/01/18 20:20 Constitutional: Yes: Well Nourished, No Distress, Calm Cardiovascular: Yes: Regular Rate and Rhythm. No: Gallop, Murmur, Rub Respiratory: Yes: Regular, CTA Bilaterally. No: Rales, Rhonchi, Wheezes Gastrointestinal: Yes: Normal Bowel Sounds, Soft. No: Distention, Tenderness Extremities: Yes: WNL Edema: No Labs: CBC, BMP 07/02/18 07:30 07/02/18 07:30 INR, PTT INR 1.32 (0.83-1.09) H 07/01/18 06:00 Problem List - Problems (1) Acute upper GI bleed Code(s): K92.2 - GASTROINTESTINAL HEMORRHAGE, UNSPECIFIED (2) Anemia Code(s): D64.9 - ANEMIA, UNSPECIFIED Qualifiers: Anemia type: other cause Other causes of anemia: acute posthemorrhagic Qualified Code(s): D62 - Acute posthemorrhagic anemia (3) Hyperkalemia Code(s): E87.5 - HYPERKALEMIA (4) Atrial fibrillation with RVR Code(s): I48.91 - UNSPECIFIED ATRIAL FIBRILLATION (5) ESRD (end stage renal disease) Code(s): N18.6 - END STAGE RENAL DISEASE (6) HTN (hypertension) Code(s): I10 - ESSENTIAL (PRIMARY) HYPERTENSION (7) Thrombocytopenia Code(s): D69.6 - THROMBOCYTOPENIA, UNSPECIFIED (8) Lactic acid acidosis Code(s): E87.2 - ACIDOSIS Assessment/Plan (1) Acute upper GI bleed Assessment/Plan: -s/p EGD -tolerating diet -continue current management -change to oral protonix tomorrow Code(s): K92.2 - GASTROINTESTINAL HEMORRHAGE, UNSPECIFIED (2) Anemia Assessment/Plan: -stable -check cbc in am Code(s): D64.9 - ANEMIA, UNSPECIFIED Qualifiers: Anemia type: other cause Other causes of anemia: acute posthemorrhagic Qualified Code(s): D62 - Acute posthemorrhagic anemia (3) Hyperkalemia Assessment/Plan: -resolved after HD Code(s): E87.5 - HYPERKALEMIA (4) Atrial fibrillation with RVR Assessment/Plan: -controlled -appreciate cardiology assistance -no need for gertrude agents currently Code(s): I48.91 - UNSPECIFIED ATRIAL FIBRILLATION (5) ESRD (end stage renal disease) Assessment/Plan: -continue HD per nephrology Code(s): N18.6 - END STAGE RENAL DISEASE (6) HTN (hypertension) Assessment/Plan: -normotensive -holding antihypertensives at this time Code(s): I10 - ESSENTIAL (PRIMARY) HYPERTENSION (7) Thrombocytopenia Assessment/Plan: -monitor Code(s): D69.6 - THROMBOCYTOPENIA, UNSPECIFIED (8) Lactic acid acidosis Assessment/Plan: -suspect secondary to anemia Code(s): E87.2 - ACIDOSIS Dispo -plan for discharge tomorrow if H/H stable -will need close f/u for restarting DAPT
[2018-07-02] MEDS: ESCITALOPRAM OXALATE 10 MG TABLET (FP) PO SCH (11:15)
[2018-07-02] MEDS: MEMANTINE HCL 5 MG TABLET (UD) PO SCH ×2 (11:15→21:02)
[2018-07-02] MEDS: SENNOSIDES 8.6MG TABLET (FP) PO SCH (11:15)
[2018-07-02] MEDS: VITAMIN B COMP W-C 1 EA TABLET PO SCH (11:16)
[2018-07-02] MEDS: CINACALCET HCL 30 MG TAB (FP) PO SCH (11:16)
--- NOTE | 2018-07-02 14:10 | PN ---
Progress Note (short form) - Note Progress Note: Renal follow up for ESRD on HD Pt seen and examined at the bedside awake and alert no acute complaints tolerated dialysis this am no PRBC was transfused Vital Signs Temperature 97.5 F L 07/02/18 08:51 Pulse Rate 78 07/02/18 10:55 Respiratory Rate 18 07/02/18 10:55 Blood Pressure 112/56 L 07/02/18 10:55 O2 Sat by Pulse Oximetry (%) 95 07/01/18 20:20 Intake & Output 06/29/18 06/30/18 07/01/18 07/02/18 23:59 23:59 23:59 23:59 Intake Total 420 320 Balance 420 320 Weight 79.379 kg NAD neck supple, no JVD No LE edema CBC, BMP 07/02/18 07:30 07/02/18 07:30 Current Medications Acetaminophen (Tylenol -) 650 mg PO Q4H PRN PRN Reason: FEVER Last Admin: 07/02/18 08:43 Dose: 650 mg Cinacalcet (Sensipar -) 30 mg PO DAILY [facility] Last Admin: 07/02/18 11:16 Dose: 30 mg Docusate Sodium (Colace -) 100 mg PO HS [facility] Last Admin: 07/01/18 21:42 Dose: 100 mg Escitalopram Oxalate (Lexapro -) 10 mg PO DAILY [facility] Last Admin: 07/02/18 11:15 Dose: 10 mg Pantoprazole Sodium 80 mg/ (Sodium Chloride) 100 mls @ 10 mls/hr IVPB Q10H [facility] Last Admin: 07/02/18 11:29 Dose: 10 mls/hr Sodium Chloride (Normal Saline -) 250 mls @ 3,000 mls/hr IV PRN PRN PRN Reason: Hypotension during Dialysis Stop: 07/03/18 07:06 Memantine (Namenda -) 5 mg PO BID [facility] Last Admin: 07/02/18 11:15 Dose: 5 mg Multivit/Ca Carb/B Cmplx/FA/Prenat (Nephro-Louie -) 1 tablet PO DAILY [facility] Last Admin: 07/02/18 11:16 Dose: 1 tablet Senna (Senna -) 1 tab PO DAILY [facility] Last Admin: 07/02/18 11:15 Dose: 1 tab Sevelamer Carbonate (Renvela -) 800 mg PO TIDCM [facility] Last Admin: 07/02/18 12:40 Dose: 800 mg 78 year old gentleman with hx of ESRD on HD, Hypertension, Dementia, Afib (on ASA, Plavix), hx Colon Ca who presented from the outpatient dialysis unit with hyoptension and acute anemia and found to have GIB and Anemia. #Acute Anemia with GIB with EGD showing non-bleeding ulcer in stomach #Hypovolemia/Hypotension #Hyperkalemia (resolved s/p dialysis) #ESRD on HD #Afib #Chest Pain (negative cardiac enzymes) tolerated dialysis this am Epogen 88197 units given no PRBC given as Hgb was 8 GI follow up On PPI Trend CBC Armen Machado DO
[2018-07-02] MEDS: DOCUSATE SODIUM 100 MG CAPSULE (FP) PO SCH (21:02)
[2018-07-02] MEDS ORDERED: ALPRAZolam 0.25 MG TABLET PO ONE (23:45)
[2018-07-03] MEDS: ACETAMINOPHEN 325 MG TABLET (FP) PO PRN ×4 (00:02→20:32)
[2018-07-03 00:06] LABS: HBSAG SCREEN Negative (Negative); HEP A AB, IGM Negative (Negative); HEP B CORE AB, TOT Positive (Negative)
[2018-07-03] MEDS: PANTOPRAZOLE SODIUM 80 MG in SODIUM CHLORIDE 100 ML IVPB SCH ×2 (05:34→09:27)
[2018-07-03 07:43] LABS: BASO % 0.2 % (0-2.0); EOS % 0.3 % (0-4.5); HEMATOCRIT 23.1 % (35.4-49); HEMOGLOBIN 7.4 GM/dL (11.7-16.9); LYMPH % 15.3 % (8-40); MCHC 32.2 g/dl (32.0-35.9); MEAN CELL VOLUME 96.4 fl (80-96); MEAN PLT VOLUME 9.3 fl (7.5-11.1); MONO % 16.1 % (3.8-10.2); NEUT % 68.1 % (42.8-82.8); PLATELET COUNT 96 K/MM3 (134-434); RDW 18.2 % (11.9-15.9); WHITE BLOOD COUNT 6.7 K/mm3 (4.0-10.0)
[2018-07-03 08:52] LABS: ANION GAP 13 MMOL/L (8-16); BLOOD UREA NITROGEN 45 mg/dL (7-18); CALCIUM 8.7 mg/dL (8.5-10.1); CHLORIDE 102 mmol/L (98-107); CO2 29 mmol/L (21-32); CREATININE 4.4 mg/dL (0.55-1.3); GLUCOSE,RANDOM 114 mg/dL (74-106); MAGNESIUM 2.3 mg/dL (1.8-2.4); PHOSPHOROUS 4.4 mg/dL (2.5-4.9); POTASSIUM 3.7 mmol/L (3.5-5.1); SODIUM 143 mmol/L (136-145)
[2018-07-03] MEDS ORDERED: PT OWN MED DRAWER 7, Y5N ONE ×2 (09:04→09:26)
[2018-07-03] MEDS: SENNOSIDES 8.6MG TABLET (FP) PO SCH (09:09)
[2018-07-03] MEDS: SEVELAMER CARBONATE 800 MG TAB (FP) PO SCH ×4 (09:09→19:29)
[2018-07-03] MEDS: MEMANTINE HCL 5 MG TABLET (UD) PO SCH ×2 (09:09→21:30)
[2018-07-03] MEDS: ESCITALOPRAM OXALATE 10 MG TABLET (FP) PO SCH (09:09)
[2018-07-03] MEDS: CINACALCET HCL 30 MG TAB (FP) PO SCH (09:10)
[2018-07-03] MEDS: VITAMIN B COMP W-C 1 EA TABLET PO SCH (09:10)
[2018-07-03] MEDS: ALPRAZolam 0.25 MG TABLET PO PRN ×2 (09:28→20:32)
--- NOTE | 2018-07-03 10:03 | PN ---
Progress Note (short form) - Note Progress Note: Progress Note: s: feels tired. no cp sob palps dizzy o: Vital Signs Period Temp Pulse Resp BP Sys/Medina Pulse Ox Last 24 Hr 97.3 F-98.0 F 71-115 16-20 94-128/47-71 95 nad no jvd irreg s1s2 no mrg cta bl nl eff awake alert appropriate no jaundice diaphoresis abd nt nd pos bs no le edema Current Medications Acetaminophen (Tylenol -) 650 mg PO Q4H PRN PRN Reason: FEVER Last Admin: 07/03/18 09:23 Dose: 650 mg Alprazolam (Xanax -) 0.5 mg PO BID PRN PRN Reason: ANXIETY Last Admin: 07/03/18 09:28 Dose: 0.5 mg Cinacalcet (Sensipar -) 30 mg PO DAILY [facility] Last Admin: 07/03/18 09:10 Dose: 30 mg Docusate Sodium (Colace -) 100 mg PO HS [facility] Last Admin: 07/02/18 21:02 Dose: 100 mg Escitalopram Oxalate (Lexapro -) 10 mg PO DAILY [facility] Last Admin: 07/03/18 09:09 Dose: 10 mg Pantoprazole Sodium 80 mg/ (Sodium Chloride) 100 mls @ 10 mls/hr IVPB Q10H [facility] Last Admin: 07/03/18 09:27 Dose: 10 mls/hr Memantine (Namenda -) 5 mg PO BID [facility] Last Admin: 07/03/18 09:09 Dose: 5 mg Multivit/Ca Carb/B Cmplx/FA/Prenat (Nephro-Louie -) 1 tablet PO DAILY [facility] Last Admin: 07/03/18 09:10 Dose: 1 tablet Senna (Senna -) 1 tab PO DAILY [facility] Last Admin: 07/03/18 09:09 Dose: 1 tab Sevelamer Carbonate (Renvela -) 800 mg PO TIDCM [facility] Last Admin: 07/03/18 09:09 Dose: 800 mg cxr: clear lungs ecg: afib, nonspec ivcd tele: afib, rate controlled echo 06/2018: nl lv/rv, sandra, mild-mod tr, nl rvsp a/p: 78 m hx afib, esrd hd, htn, dementia, sent from hd with low bp and anemia. afib: -on atenolol at home, bp too low here to give now, likely due to anemia. - currently hr acceptable, monitor on tele -was on asa and plavix at home. pt reports he was on coumadin years ago but was stopped due to unknown reasons -given his anemia and gib, hold dapt for now until acceptable risk per GI esrd: -cont hd per renal htn: -bp was low, likely from anemia, now improving. holding home meds for now. anemia, gib: -transfuse prn -gi following, egd shows ulcer, erosions
--- NOTE | 2018-07-03 10:56 | PN ---
Progress Note, Physician Chief Complaint: Mr Steiner complains of pain in his R heel but otherwise is without complaint. Denies cp, sob, n/v. Is very pleasant to me, however was agitated with RN and cardiology. - Current Medication List Current Medications: Active Medications Acetaminophen (Tylenol -) 650 mg PO Q4H PRN PRN Reason: FEVER Last Admin: 07/03/18 09:23 Dose: 650 mg Alprazolam (Xanax -) 0.5 mg PO BID PRN PRN Reason: ANXIETY Last Admin: 07/03/18 09:28 Dose: 0.5 mg Cinacalcet (Sensipar -) 30 mg PO DAILY [facility] Last Admin: 07/03/18 09:10 Dose: 30 mg Docusate Sodium (Colace -) 100 mg PO HS [facility] Last Admin: 07/02/18 21:02 Dose: 100 mg Escitalopram Oxalate (Lexapro -) 10 mg PO DAILY [facility] Last Admin: 07/03/18 09:09 Dose: 10 mg Pantoprazole Sodium 80 mg/ (Sodium Chloride) 100 mls @ 10 mls/hr IVPB Q10H [facility] Last Admin: 07/03/18 09:27 Dose: 10 mls/hr Memantine (Namenda -) 5 mg PO BID [facility] Last Admin: 07/03/18 09:09 Dose: 5 mg Multivit/Ca Carb/B Cmplx/FA/Prenat (Nephro-Louie -) 1 tablet PO DAILY [facility] Last Admin: 07/03/18 09:10 Dose: 1 tablet Oxycodone HCl (Roxicodone -) 5 mg PO Q6H PRN PRN Reason: PAIN LEVEL 6-10 Senna (Senna -) 1 tab PO DAILY [facility] Last Admin: 07/03/18 09:09 Dose: 1 tab Sevelamer Carbonate (Renvela -) 800 mg PO TIDCM [facility] Last Admin: 07/03/18 09:09 Dose: 800 mg - Objective Vital Signs: Vital Signs Temperature 36.3 C L 07/03/18 08:48 Pulse Rate 94 H 07/03/18 08:48 Respiratory Rate 20 07/03/18 08:48 Blood Pressure 128/59 L 07/03/18 08:48 O2 Sat by Pulse Oximetry (%) 95 07/02/18 20:27 Constitutional: Yes: Well Nourished, No Distress, Calm Cardiovascular: Yes: Regular Rate and Rhythm. No: Gallop, Murmur, Rub Respiratory: Yes: Regular, CTA Bilaterally. No: Rales, Rhonchi, Wheezes Gastrointestinal: Yes: Normal Bowel Sounds, Soft. No: Distention, Tenderness Extremities: Yes: Other (BLE wrapped) Edema: No Labs: CBC, BMP 07/03/18 06:05 07/03/18 06:05 INR, PTT INR 1.32 (0.83-1.09) H 07/01/18 06:00 Problem List - Problems (1) Acute upper GI bleed Code(s): K92.2 - GASTROINTESTINAL HEMORRHAGE, UNSPECIFIED (2) Anemia Code(s): D64.9 - ANEMIA, UNSPECIFIED Qualifiers: Anemia type: other cause Other causes of anemia: acute posthemorrhagic Qualified Code(s): D62 - Acute posthemorrhagic anemia (3) Hyperkalemia Code(s): E87.5 - HYPERKALEMIA (4) Atrial fibrillation with RVR Code(s): I48.91 - UNSPECIFIED ATRIAL FIBRILLATION (5) ESRD (end stage renal disease) Code(s): N18.6 - END STAGE RENAL DISEASE (6) HTN (hypertension) Code(s): I10 - ESSENTIAL (PRIMARY) HYPERTENSION (7) Thrombocytopenia Code(s): D69.6 - THROMBOCYTOPENIA, UNSPECIFIED (8) Lactic acid acidosis Code(s): E87.2 - ACIDOSIS Assessment/Plan (1) Acute upper GI bleed Assessment/Plan: -s/p EGD -H/H decreased, but may not still be bleeding -continue diet and monitoring -will change to bid protonix -monitor Code(s): K92.2 - GASTROINTESTINAL HEMORRHAGE, UNSPECIFIED (2) Anemia Assessment/Plan: -decreased today but otherwise stable -will recheck in am -if continues to decrease, will d/w GI Code(s): D64.9 - ANEMIA, UNSPECIFIED Qualifiers: Anemia type: other cause Other causes of anemia: acute posthemorrhagic Qualified Code(s): D62 - Acute posthemorrhagic anemia (3) Hyperkalemia Assessment/Plan: -resolved after HD Code(s): E87.5 - HYPERKALEMIA (4) Atrial fibrillation with RVR Assessment/Plan: -controlled -appreciate cardiology assistance -no need for gertrude agents currently Code(s): I48.91 - UNSPECIFIED ATRIAL FIBRILLATION (5) ESRD (end stage renal disease) Assessment/Plan: -continue HD per nephrology Code(s): N18.6 - END STAGE RENAL DISEASE (6) HTN (hypertension) Assessment/Plan: -normotensive Code(s): I10 - ESSENTIAL (PRIMARY) HYPERTENSION (7) Thrombocytopenia Assessment/Plan: -monitor Code(s): D69.6 - THROMBOCYTOPENIA, UNSPECIFIED (8) Lactic acid acidosis Assessment/Plan: -resolved Code(s): E87.2 - ACIDOSIS (9) Toxic metabolic encephalopathy -suspect multifactorial -with history of dementia -was holding trazadone, oxycodone, and xanax during GI bleed -possible withdrawal as improved after receiving xanax and oxycodone -however also with elevated troponins -restart xanax, oxycodone, and trazadone (10) Elevated troponins -case d/w Dr Cruz -increasing -continue to trend -will start statin
[2018-07-03] MEDS: oxyCODONE HCL 5 MG TABLET PO PRN ×2 (11:06→16:53)
--- NOTE | 2018-07-03 17:06 | EKG ---
Test Reason : Blood Pressure : / mmHG Vent. Rate : 086 BPM Atrial Rate : 111 BPM P-R Int : 000 ms QRS Dur : 140 ms QT Int : 422 ms P-R-T Axes : 000 267 139 degrees QTc Int : 504 ms ATRIAL FIBRILLATION WITH PREMATURE VENTRICULAR OR ABERRANTLY CONDUCTED COMPLEXES RIGHT SUPERIOR AXIS DEVIATION NON-SPECIFIC INTRA-VENTRICULAR CONDUCTION BLOCK CANNOT RULE OUT SEPTAL INFARCT (CITED ON OR BEFORE 30-JUN-2018) ABNORMAL ECG WHEN COMPARED WITH ECG OF 30-JUN-2018 18:36, NO SIGNIFICANT CHANGE WAS FOUND Confirmed by MD JAKI, GERALDINE ([id number]) on 07/03/2018 5:06:12 PM Referred By: Confirmed By:GERALDINE POLLACK MD
--- NOTE | 2018-07-03 21:17 | PN ---
Progress Note (short form) - Note Progress Note: covering dr stevenson Problems presented from the outpatient dialysis unit with hypotension and acute anemia #Acute Anemia with GIB with EGD showing non-bleeding ulcer in stomach #Hypovolemia/Hypotension #Hyperkalemia (resolved s/p dialysis) #ESRD on HD #Afib #Chest Pain (negative cardiac enzymes) PMHX ESRD on HD, Hypertension, Dementia, Afib (on ASA, Plavix), hx Colon Ca c/o right ankle pain Current Medications Acetaminophen (Tylenol -) 650 mg PO Q4H PRN PRN Reason: FEVER Last Admin: 07/03/18 20:32 Dose: 650 mg Alprazolam (Xanax -) 0.5 mg PO BID PRN PRN Reason: ANXIETY Last Admin: 07/03/18 20:32 Dose: 0.5 mg Atorvastatin Calcium (Lipitor -) 10 mg PO HS [facility] Cinacalcet (Sensipar -) 30 mg PO DAILY [facility] Last Admin: 07/03/18 09:10 Dose: 30 mg Docusate Sodium (Colace -) 100 mg PO HS [facility] Last Admin: 07/02/18 21:02 Dose: 100 mg Escitalopram Oxalate (Lexapro -) 10 mg PO DAILY [facility] Last Admin: 07/03/18 09:09 Dose: 10 mg Memantine (Namenda -) 5 mg PO BID [facility] Last Admin: 07/03/18 09:09 Dose: 5 mg Multivit/Ca Carb/B Cmplx/FA/Prenat (Nephro-Louie -) 1 tablet PO DAILY [facility] Last Admin: 07/03/18 09:10 Dose: 1 tablet Oxycodone HCl (Roxicodone -) 5 mg PO Q6H PRN PRN Reason: PAIN LEVEL 6-10 Last Admin: 07/03/18 16:53 Dose: 5 mg Pantoprazole Sodium (Protonix Iv) 40 mg IVPUSH BID [facility] Senna (Senna -) 1 tab PO DAILY [facility] Last Admin: 07/03/18 09:09 Dose: 1 tab Sevelamer Carbonate (Renvela -) 800 mg PO TIDCM [facility] Last Admin: 07/03/18 16:53 Dose: 800 mg Trazodone HCl (Desyrel -) 50 mg PO HS [facility] Last Vital Signs Temp Pulse Resp BP Pulse Ox 97.6 F 97 H 20 109/79 95 12/01/18 18:00 07/03/18 18:00 07/03/18 18:00 07/03/18 18:00 07/03/18 09:00 CBC, BMP 07/03/18 06:05 07/03/18 06:05 tolerated dialysis this am Epogen 19965 units given no PRBC given as Hgb was 8 GI follow up On PPI Trend CBC
[2018-07-03] MEDS: DOCUSATE SODIUM 100 MG CAPSULE (FP) PO SCH (21:30)
[2018-07-03] MEDS: PANTOPRAZOLE SODIUM 40 MG VIAL IVPUSH SCH (21:30)
[2018-07-03] MEDS ORDERED: traZODone HCL 50 MG TABLET (FP) PO SCH (22:00)
[2018-07-03] MEDS ORDERED: ATORVASTATIN CA 10 MG TABLET (FP) PO SCH (22:00)
[2018-07-03 23:53] VITALS: PULSE 88
[2018-07-04] MEDS: ACETAMINOPHEN 325 MG TABLET (FP) PO PRN (02:35)
[2018-07-04] MEDS: oxyCODONE HCL 5 MG TABLET PO PRN ×2 (02:35→09:00)
[2018-07-04 06:53] LABS: BASO % 0.4 % (0-2.0); EOS % 0.6 % (0-4.5); HEMATOCRIT 25.2 % (35.4-49); LYMPH % 15.7 % (8-40); MCH 31.3 pg (25.7-33.7); MCHC 31.8 g/dl (32.0-35.9); MEAN CELL VOLUME 98.6 fl (80-96); MEAN PLT VOLUME 9.5 fl (7.5-11.1); MONO % 12.6 % (3.8-10.2); NEUT % 70.7 % (42.8-82.8); PLATELET COUNT 105 K/MM3 (134-434); RBC 2.56 M/mm3 (4.00-5.60); RDW 18.1 % (11.9-15.9); WHITE BLOOD COUNT 7.8 K/mm3 (4.0-10.0)
[2018-07-04 07:43] LABS: ANION GAP 13 MMOL/L (8-16); BLOOD UREA NITROGEN 56 mg/dL (7-18); CALCIUM 8.4 mg/dL (8.5-10.1); CHLORIDE 98 mmol/L (98-107); CO2 28 mmol/L (21-32); CREATININE 5.9 mg/dL (0.55-1.3); GLUCOSE,RANDOM 106 mg/dL (74-106); MAGNESIUM 2.6 mg/dL (1.8-2.4); PHOSPHOROUS 4.8 mg/dL (2.5-4.9); SODIUM 139 mmol/L (136-145)
[2018-07-04] MEDS ORDERED: PT OWN MED DRAWER 7, Y5N ONE (08:55)
[2018-07-04] MEDS: SEVELAMER CARBONATE 800 MG TAB (FP) PO SCH (08:59)
[2018-07-04] MEDS: SENNOSIDES 8.6MG TABLET (FP) PO SCH (09:00)
[2018-07-04] MEDS: ESCITALOPRAM OXALATE 10 MG TABLET (FP) PO SCH (09:00)
[2018-07-04] MEDS: MEMANTINE HCL 5 MG TABLET (UD) PO SCH (09:01)
[2018-07-04] MEDS: VITAMIN B COMP W-C 1 EA TABLET PO SCH (09:01)
[2018-07-04] MEDS: PANTOPRAZOLE SODIUM 40 MG VIAL IVPUSH SCH (09:01)
[2018-07-04] MEDS: CINACALCET HCL 30 MG TAB (FP) PO SCH (09:02)
[2018-07-04 09:22] VITALS: BP 116/57; TEMP 97.9
--- NOTE | 2018-07-04 10:17 | DS ---
Physical Examination Vital Signs: Vital Signs Temperature 36.6 C 07/04/18 09:21 Pulse Rate 88 07/04/18 09:21 Respiratory Rate 20 07/04/18 09:21 Blood Pressure 116/57 L 07/04/18 09:21 O2 Sat by Pulse Oximetry (%) 95 07/04/18 09:13 Constitutional: Yes: Well Nourished, No Distress, Calm Cardiovascular: Yes: Pulse Irregular. No: Tachycardia, Gallop, Murmur, Rub Respiratory: Yes: Regular, CTA Bilaterally. No: Rales, Rhonchi, Wheezes Gastrointestinal: Yes: Normal Bowel Sounds, Soft. No: Distention, Tenderness Extremities: Yes: WNL Edema: No Labs: CBC, BMP 07/04/18 06:00 07/04/18 06:00 Discharge Summary Reason For Visit: ESRD NEEDS DIALYSIS; ACUTE UPPER GI HEMORRHAGE Current Active Problems Acute upper GI bleed (Acute) Anemia (Acute) Atrial fibrillation with RVR (Acute) ESRD (end stage renal disease) (Acute) ESRD needing dialysis (Acute) Hyperkalemia (Acute) Lactic acid acidosis (Acute) Hospital Course: (1) Acute upper GI bleed Code(s): K92.2 - GASTROINTESTINAL HEMORRHAGE, UNSPECIFIED (2) Anemia Code(s): D64.9 - ANEMIA, UNSPECIFIED Qualifiers: Anemia type: other cause Other causes of anemia: acute posthemorrhagic Qualified Code(s): D62 - Acute posthemorrhagic anemia (3) Hyperkalemia Code(s): E87.5 - HYPERKALEMIA (4) Atrial fibrillation with RVR Code(s): I48.91 - UNSPECIFIED ATRIAL FIBRILLATION (5) ESRD (end stage renal disease) Code(s): N18.6 - END STAGE RENAL DISEASE (6) HTN (hypertension) Code(s): I10 - ESSENTIAL (PRIMARY) HYPERTENSION (7) Thrombocytopenia Code(s): D69.6 - THROMBOCYTOPENIA, UNSPECIFIED (8) Lactic acid acidosis Code(s): E87.2 - ACIDOSIS Mr Steiner is an 78 year old male who came in with GI bleeding. He has ESRD and was also hyperkalemic on admission. Because of this he was emergently dialyzed and transfused. He was placed on a protonix gtt to stop the bleeding. He was followed by nephrology for this. He was seen by cardiology for atrial fibrillation. He is on DAPT and this was held secondary to the GI bleeding. He was noted to have stress induced ischemia secondary to anemia, cardiology following and this is trending down. He should have close follow up with cardiology as an outpatient. He underwent EGD which showed ulceration, his diet was advanced and his protonix gtt was transitioned to bid protonix. His H/H has stabilized and he is currently stable for transfer back to [facility]. Case was discussed with daughter. She was made aware that he will need close follow up with GI and cardiology, particularly about restarting DAPT and further cardiac work up if indicated. Referrals made to Dr Florence/Dina (per daughter request since located in [facility]) and Dr Beebe for outpatient care. 31 minutes spent in preparation of this discharge Condition: Stable - Instructions Diet, Activity, Other Instructions: Resume previous diet and activity. Because of recent GI bleed, will hold aspirin and plavix at this time. Mr Steiner will need to be followed closely by GI and cardiology to determine when it is safe to restart this, will defer to his PCP to be in contact with these physicians. Take protonix 40mg oral twice daily for 2 weeks then change to 40mg daily. Referrals: Luigi Florence MD [Staff Physician] - Marvin Beebe MD [Staff Physician] - ON STAFF,NOT [Primary Care Provider] - Armen Machado MD [Staff Physician] - Disposition: [facility]ILITY - Home Medications Comprehensive Discharge Medication List: Ambulatory Orders Alprazolam [Xanax] 0.5 mg PO BID PRN 08/15/16 Atenolol [Tenormin -] 50 mg PO DAILY 08/15/16 Oxycodone HCl/Acetaminophen [Percocet 5-325 mg Tablet] 1 tab PO Q6H 08/15/16 Zolpidem Tartrate [Ambien] 5 mg PO HS 08/15/16 traZODone HCL [Trazodone HCl] 50 mg PO HS 08/15/16 Cinacalcet HCl [Sensipar -] 30 mg PO DAILY 06/30/18 Docusate Sodium [Colace] 2 cap PO HS 06/30/18 Escitalopram Oxalate [Lexapro -] 10 mg PO DAILY 06/30/18 Memantine HCl [Namenda -] 5 mg PO BID 06/30/18 Polyethylene Glycol 3350 [Laxaclear] 1,700 gm PO DAILY 06/30/18 Sennosides [Senna Concentrate] 8.6 mg PO DAILY 06/30/18 Sevelamer Carbonate [Renvela -] 800 mg PO TID 06/30/18 Vit B Comp No.3/Folic/C/Biotin [Nephro-Louie Rx Tablet] 1 each PO DAILY 06/30/18 Atorvastatin Ca [Lipitor] 10 mg PO HS tablet 07/04/18 Pantoprazole Sodium [Protonix] 40 mg PO ASDIR #60 tablet. 07/04/18
--- NOTE | 2018-07-04 10:23 | PN ---
Progress Note (short form) - Note Progress Note: s: no cp sob palps dizzy o: Vital Signs Period Temp Pulse Resp BP Sys/Medina Pulse Ox Last 24 Hr 97.4 F-98.1 F 80-97 20-20 102-146/50-79 95-95 nad no jvd irreg s1s2 no mrg cta bl nl eff awake alert appropriate no jaundice diaphoresis abd nt nd pos bs no le edema Current Medications Generic Name Dose Route Start Last Admin Trade Name Freq PRN Reason Stop Dose Admin Acetaminophen 650 mg 07/01/18 16:41 07/04/18 02:35 Tylenol - PO 650 mg Q4H PRN Administration FEVER Alprazolam 0.5 mg 07/03/18 09:08 07/03/18 20:32 Xanax - PO 0.5 mg BID PRN Administration ANXIETY Atorvastatin Calcium 10 mg 07/03/18 22:00 07/03/18 21:30 Lipitor - PO 10 mg HS MARCUS Administration Cinacalcet 30 mg 07/02/18 10:00 07/04/18 09:02 Sensipar - PO 30 mg DAILY MARCUS Administration Docusate Sodium 100 mg 07/01/18 22:00 07/03/18 21:30 Colace - PO 100 mg HS MARCUS Administration Escitalopram Oxalate 10 mg 07/02/18 10:00 07/04/18 09:00 Lexapro - PO 10 mg DAILY MARCUS Administration Memantine 5 mg 07/01/18 22:00 07/04/18 09:01 Namenda - PO 5 mg BID MARCUS Administration Multivit/Ca Carb/B Cmplx/FA/Prenat 1 tablet 07/02/18 10:00 07/04/18 09:01 Nephro-Louie - PO 1 tablet DAILY MARCUS Administration Oxycodone HCl 5 mg 07/03/18 10:55 07/04/18 09:00 Roxicodone - PO 5 mg Q6H PRN Administration PAIN LEVEL 6-10 Pantoprazole Sodium 40 mg 07/03/18 22:00 07/04/18 09:01 Protonix Iv IVPUSH 40 mg BID MARCUS Administration Senna 1 tab 07/02/18 10:00 07/04/18 09:00 Senna - PO 1 tab DAILY MARCUS Administration Sevelamer Carbonate 800 mg 07/01/18 17:30 07/04/18 08:59 Renvela - PO 800 mg TIDCM MARCUS Administration Trazodone HCl 50 mg 07/03/18 22:00 07/03/18 21:30 Desyrel - PO 50 mg HS MARCUS Administration Laboratory Last Values WBC 7.8 K/mm3 (4.0-10.0) 07/04/18 06:00 RBC 2.56 M/mm3 (4.00-5.60) L 07/04/18 06:00 Hgb 8.0 GM/dL (11.7-16.9) L 07/04/18 06:00 Hct 25.2 % (35.4-49) L 07/04/18 06:00 MCV 98.6 fl (80-96) H 07/04/18 06:00 MCH 31.3 pg (25.7-33.7) 07/04/18 06:00 MCHC 31.8 g/dl (32.0-35.9) L 07/04/18 06:00 RDW 18.1 % (11.9-15.9) H 07/04/18 06:00 Plt Count 105 K/MM3 (134-434) L 07/04/18 06:00 MPV 9.5 fl (7.5-11.1) 07/04/18 06:00 Absolute Neuts (auto) 5.5 K/mm3 (1.5-8.0) 07/04/18 06:00 Neutrophils % 70.7 % (42.8-82.8) 07/04/18 06:00 Lymphocytes % 15.7 % (8-40) 07/04/18 06:00 Monocytes % 12.6 % (3.8-10.2) H 07/04/18 06:00 Eosinophils % 0.6 % (0-4.5) D 07/04/18 06:00 Basophils % 0.4 % (0-2.0) 07/04/18 06:00 Nucleated RBC % 1 % (0-0) H 07/04/18 06:00 PT with INR 15.60 SEC (9.7-13.0) H 07/01/18 06:00 INR 1.32 (0.83-1.09) H 07/01/18 06:00 PTT (Actin FS) 24.0 SECONDS (25.2-36.5) L 07/01/18 06:00 Sodium 139 mmol/L (136-145) 07/04/18 06:00 Potassium 4.0 mmol/L (3.5-5.1) 07/04/18 06:00 Chloride 98 mmol/L (98-107) 07/04/18 06:00 Carbon Dioxide 28 mmol/L (21-32) 07/04/18 06:00 Anion Gap 13 MMOL/L (8-16) 07/04/18 06:00 BUN 56 mg/dL (7-18) H 07/04/18 06:00 Creatinine 5.9 mg/dL (0.55-1.3) H 07/04/18 06:00 Creat Clearance w eGFR 9.27 (>60) 07/04/18 06:00 Random Glucose 106 mg/dL (74-106) 07/04/18 06:00 Lactic Acid 3.8 mmol/L (0.4-2.0) H* 06/30/18 13:44 Calcium 8.4 mg/dL (8.5-10.1) L 07/04/18 06:00 Phosphorus 4.8 mg/dL (2.5-4.9) 07/04/18 06:00 Magnesium 2.6 mg/dL (1.8-2.4) H 07/04/18 06:00 Total Bilirubin 0.3 mg/dL (0.2-1) 06/30/18 13:30 AST 19 U/L (15-37) 06/30/18 13:30 ALT 19 U/L (13-61) 06/30/18 13:30 Alkaline Phosphatase 96 U/L (45-117) 06/30/18 13:30 Creatine Kinase 123 IU/L (26-308) 07/03/18 11:18 Troponin I 0.47 ng/ml (0.00-0.05) H 07/04/18 06:00 Total Protein 5.8 g/dl (6.4-8.2) L 06/30/18 13:30 Albumin 2.8 g/dl (3.4-5.0) L 06/30/18 13:30 Stool Occult Blood Positive (NEGATIVE) 06/30/18 14:50 Hep A IgM Ab Confirm Negative (Negative) 06/30/18 20:49 Hepatitis A Ab Total Positive (Negative) H 06/30/18 20:49 Hep Bs Antigen Negative (Negative) 06/30/18 20:49 Hep Bs Antibody Reactive (.) 06/30/18 20:49 Hep B Core Total Ab Positive (Negative) H 06/30/18 20:49 Hep C Ab Diagnostic Cancelled 06/30/18 21:00 Hepatitis C RNA Cancelled 06/30/18 21:00 HCV RNA PCR log blueprinting and photocopy supervisor/ml Cancelled 06/30/18 21:00 HCV RNA (PCR) IUs/ml Cancelled 06/30/18 21:00 HCV RNA PCR w/Genot Rflx Cancelled 06/30/18 21:00 Liver Fibrosis Interp Cancelled 06/30/18 21:00 Blood Type A POSITIVE 06/30/18 16:30 Antibody Screen Negative 06/30/18 16:30 Crossmatch See Detail 06/30/18 16:30 cxr: clear lungs ecg: afib, nonspec ivcd tele: afib, rate controlled echo 06/2018: nl lv/rv, sandra, mild-mod tr, nl rvsp a/p: 78 m hx afib, esrd hd, htn, dementia, sent from hd with low bp and anemia. afib: -on atenolol at home, bp initially too low here to give. Now bp improved, can resume home atenolol on dc. -was on asa and plavix at home. pt reports he was on coumadin years ago but was stopped due to unknown reasons -given his anemia and gib, hold dapt for now until acceptable risk per GI esrd: -cont hd per renal htn: -bp was low, likely from anemia, now improved. can resume home bb for rate control as well. anemia, gib: -hgb stable -gi following, egd shows ulcer, erosions elevated trops: -trop here with mild, slow trending elevation, with normal ck. Not c/w acs. Likely from anemia, hypotension, esrd. Echo unremarkable here. Given lack of cardiac sxs, normal lvef, anemia, dementia, will continue with med rx for possible cad. Cardiac vick stable for dc with outpt f/u.
--- NOTE | 2018-07-05 17:55 | PATH ---
Surgical Pathology Report Patient Name: KEELEY MOCK [facility]. Rec. #: [id number] /Age/Gender: 1940 (Age: 78) / M Account: [id number] Location: 4 PEDS/ADOL Taken: 07/01/2018 Received: 07/02/2018 Reported: 07/05/2018 Physicians: Marvin Beebe M.D. Specimen(s) Received BX GE JUNCTION Clinical History Melena Postoperative diagnosis: Gastric ulcer, erosive gastritis Final Diagnosis GE JUNCTION, BIOPSY: GASTRIC CARDIAC TYPE MUCOSA WITH MODERATE CHRONIC ACTIVE GASTRITIS. NO SQUAMOUS MUCOSA OR INTESTINAL METAPLASIA IDENTIFIED. IMMUNOHISTOCHEMICAL STAIN FOR H. PYLORI IS NEGATIVE. NO SQUAMOUS MUCOSA IDENTIFIED Electronically Signed Joceline Parra M.D. Gross Description Received in formalin, labeled "GE junction" is a freeman, irregular portion of soft tissue measuring 0.5 cm. in greatest dimension. The specimen is submitted in toto in one cassette. 07/02/2018 saudi07/02/2018
== END 2018-07-04 11:26 | DRG 377 ==
LOC: JER 12:31 → JERBED 16:26 → J4S 19:20
PROVIDERS: ADMIT Internal Medicine; ATTEND Internal Medicine
PROC: 30233N1 Transfusion of Nonautologous Red Blood Cells into Peripheral Vein, Percutaneous Approach (ICD-10-PCS; 2018-06-30)
PROC: 5A1D70Z Performance of Urinary Filtration, Intermittent, Less than 6 Hours Per Day (ICD-10-PCS; 2018-06-30)
PROC: 0DB48ZX Excision of Esophagogastric Junction, Via Natural or Artificial Opening Endoscopic, Diagnostic (ICD-10-PCS; principal; 2018-07-01 13:30)
DX: K92.2 Gastrointestinal hemorrhage, unspecified (principal); N18.6 End stage renal disease; I12.0 Hypertensive chronic kidney disease with stage 5 chronic kidney disease or end stage renal disease; D62 Acute posthemorrhagic anemia; E87.2 Acidosis; E46 Unspecified protein-calorie malnutrition; Z68.20 Body mass index [BMI] 20.0-20.9, adult; I16.0 Hypertensive urgency; E87.5 Hyperkalemia; R19.7 Diarrhea, unspecified; E11.21 Type 2 diabetes mellitus with diabetic nephropathy; I48.91 Unspecified atrial fibrillation; E78.5 Hyperlipidemia, unspecified; E86.0 Dehydration; E11.51 Type 2 diabetes mellitus with diabetic peripheral angiopathy without gangrene; E11.22 Type 2 diabetes mellitus with diabetic chronic kidney disease; J44.9 Chronic obstructive pulmonary disease, unspecified; Z91.15 Patient's noncompliance with renal dialysis; D64.9 Anemia, unspecified; Z89.421 Acquired absence of other right toe(s); F17.210 Nicotine dependence, cigarettes, uncomplicated; I25.10 Atherosclerotic heart disease of native coronary artery without angina pectoris; D63.1 Anemia in chronic kidney disease; K26.9 Duodenal ulcer, unspecified as acute or chronic, without hemorrhage or perforation; K25.9 Gastric ulcer, unspecified as acute or chronic, without hemorrhage or perforation; I95.9 Hypotension, unspecified; K92.1 Melena
CPT/HCPCS: 36415; 36430; 71045-TC-FY; 80048; 80053; 82272; 82550; 83605; 83735; 84100; 84484; 85025; 85610; 85730; 86704; 86706; 86708; 86803; 86850; 86900; 86901; 86922; 87340; 88305-TC; 93005; 93010; 93306-TC; 94760; 97116-GP; 97161-GP; 99284-25; J0131; J0885; P9038; P9047; P9058

== ENCOUNTER 2018-07-22 12:32 | Inpatient (IN) | payer OTHER, MEDICARE ==
--- NOTE | 2018-07-22 13:33 | PDOC ---
Rapid Medical Evaluation Medical Evaluation: Allergies Allergy/AdvReac Type Severity Reaction Status Date / Time No Known Allergies Allergy Verified 08/15/16 11:51 I have performed a brief in-person evaluation of this patient. The patient presents with a chief complaint of: ESRD on HD (M/W/F; last dialysis yesterday); has wound to R heel for at least 1 month; follows at wound clinic; went there for routine examination, and recommended admission I have ordered the following: Labs The patient will proceed to the ED for further evaluation. 07/22/18 13:31
--- NOTE | 2018-07-22 14:32 | PDOC ---
History of Present Illness - History of Present Illness Initial Comments: 07/22/18 15:31 The patient is a 78 year old male, with a significant past medical history of HTN, colon ca s/p resection, Afib, ESRD, dementia, Renal Osteodystrophy, and PAD , who presents to the emergency department with, non healing bilateral lower extremity wounds. As per patient, something fell onto his leg and since then he has had a wound to his left second toe and right heel. Patient was receiving wound care from Dr. Martinez. He was seen in wound care today, after his discharge earlier in the month for GI bleed, who advised him to report to the ED for further evaluation and possible surgical debridement. History is limited due to patients dementia and patients son unaware of his care. He denies any recent fevers, chills, headache or dizziness. He denies any recent nausea, vomit, diarrhea or constipation. He denies any recent chest pain or shortness of breath. He denies any recent dysuria, frequency, urgency or hematuria. Allergies: NKDA <Seun Fletcher - Last Filed: 07/22/18 15:30> - General History Source: Patient Exam Limitations: No Limitations <Lamont James - Last Filed: 07/22/18 17:11> - General Chief Complaint: Wound Stated Complaint: WOUND Time Seen by Provider: 07/22/18 13:49 Past History <Seun Fletcher - Last Filed: 07/22/18 15:30> - Past Medical History Cancer: Yes (COLON AND PROSTATE) Cardiac Disorders: Yes (A.FIB) COPD: No Dementia: Yes Dialysis: Yes (M-W-F,RT ARM FISTULA) Disorders: Yes (ESRD) HTN: Yes Psychiatric Problems: Yes (ANXEITY) - Surgical History Abdominal Surgery: Yes (COLON CA) Orthopedic Surgery: Yes - Suicide/Smoking/Psychosocial Hx Smoking History: Never smoked Have you smoked in the past 12 months: No Information on smoking cessation initiated: No Hx Alcohol Use: No Drug/Substance Use Hx: No Substance Use Type: None Hx Substance Use Treatment: No <Lamont James - Last Filed: 07/22/18 17:11> - Past Medical History Allergies/Adverse Reactions: Allergies Allergy/AdvReac Type Severity Reaction Status Date / Time No Known Allergies Allergy Verified 08/15/16 11:51 Home Medications: Ambulatory Orders Alprazolam [Xanax] 0.5 mg PO BID PRN 08/15/16 Atenolol [Tenormin -] 50 mg PO DAILY 08/15/16 Oxycodone HCl/Acetaminophen [Percocet 5-325 mg Tablet] 1 tab PO Q6H 08/15/16 Zolpidem Tartrate [Ambien] 5 mg PO HS 08/15/16 traZODone HCL [Trazodone HCl] 50 mg PO HS 08/15/16 Cinacalcet HCl [Sensipar -] 30 mg PO DAILY 06/30/18 Docusate Sodium [Colace] 2 cap PO HS 06/30/18 Escitalopram Oxalate [Lexapro -] 10 mg PO DAILY 06/30/18 Memantine HCl [Namenda -] 5 mg PO BID 06/30/18 Polyethylene Glycol 3350 [Laxaclear] 1,700 gm PO DAILY 06/30/18 Sennosides [Senna Concentrate] 8.6 mg PO DAILY 06/30/18 Sevelamer Carbonate [Renvela -] 800 mg PO TID 06/30/18 Vit B Comp No.3/Folic/C/Biotin [Nephro-Louie Rx Tablet] 1 each PO DAILY 06/30/18 Atorvastatin Ca [Lipitor] 10 mg PO HS tablet 07/04/18 Pantoprazole Sodium [Protonix] 40 mg PO ASDIR #60 tablet. 07/04/18 Review of Systems - Review of Systems Able to Perform ROS?: Yes Comments:: 07/22/18 15:31 "CONSTITUTIONAL: No reported: Fever, Chills, Diaphoresis, Generalized Weakness, Malaise, Loss of Appetite HEENT: No reported: Rhinorrhea, Nasal Congestion, Throat Pain, Throat Swelling, Difficulty Swallowing, Mouth Swelling, Ear Pain, Eye Pain, Visual Changes CARDIOVASCULAR: No reported: Chest Pain, Syncope, Palpitations, Irregular Heart Rate, Lightheadedness, Peripheral Edema RESPIRATORY: No reported: Cough, Shortness of Breath, SOB with Exertion, Orthopnea, Wheezing , Stridor, Hemoptysis GASTROINTESTINAL: No reported: Abdominal pain, Abdominal Distension, Nausea, Vomiting, Diarrhea, Constipation, Melena, Hematochezia GENITOURINARY: No reported: Dysuria, Frequency, Urgency, Hesitancy, Flank Pain, Genital Pain MUSCULOSKELETAL: No reported: Myalgia, Arthralgia, Joint Swelling, Back pain, Neck Pain SKIN: Present: L second toe ulcer and right ankle ulcer. HEMEATOLOGIC/IMMUNOLOGIC: No reported: Easy Bleeding, Easy Bruising, Lymphadenopathy, Frequent infections ENDOCRINE: No reported: Unexplained Weight Gain, Unexplained Weight Loss, Heat Intolerance , Cold Intolerance NEUROLOGIC: No reported: Headache, Focal Weakness, Paresthesias, Vertigo, Lightheadedness, Unsteady Gait, Seizure, Mental Status Changes, Incontinence PSYCHIATRIC: No reported: Anxiety, Depression " All Other Systems: Reviewed and Negative <Seun Fletcher - Last Filed: 07/22/18 15:30> *Physical Exam - Vital Signs Last Vital Signs Temp Pulse Resp BP Pulse Ox 97.7 F 87 16 128/60 100 07/22/18 13:32 07/22/18 13:32 07/22/18 13:32 07/22/18 13:32 07/22/18 13:32 <Seun Fletcher - Last Filed: 07/22/18 15:30> - Vital Signs Last Vital Signs Temp Pulse Resp BP Pulse Ox 97.7 F 87 16 128/60 100 07/22/18 13:32 07/22/18 13:32 07/22/18 13:32 07/22/18 13:32 07/22/18 13:32 - Physical Exam Comments: 07/22/18 14:56 GENERAL: The patient is awake, alert, , Nontoxic - in no acute distress. HEAD: Normocephalic, atraumatic. EYES: extraocular movements intact, sclera anicteric, conjunctiva clear. ENT: Normal voice, Moist mucous membranes. NECK: Normal range of motion, supple LUNGS: Breath sounds equal, clear to auscultation bilaterally. No wheezes, no rhonchi, no rales. HEART: Regular rate and rhythm, normal S1 and S2 without murmur, rub or gallop. ABDOMEN: Soft, nontender, normoactive bowel sounds. No guarding, no rebound. . No CVA tenderness EXTREMITIES: unstagable wound/ulcer on posterior R heel over the achilles tendon , foul smelling witjhout active discharge, mild erythema/necrotic region on distal aspect of L 2nd toe. deminished pulses on R DP, +cap refill approx 1 sec , LLE - cap refil appro 2 sec NEUROLOGICAL: No facial assymetry, Normal speech, moving all 4 extremities spontaneously and symmetrically PSYCH: Normal mood, normal affect. SKIN: Warm, Dry, normal turgor, <Lamont James - Last Filed: 07/22/18 17:11> Moderate Sedation - Procedure Monitoring Vital Signs: Procedure Monitoring Vital Signs Temperature 97.7 F 07/22/18 13:32 Pulse Rate 87 07/22/18 13:32 Respiratory Rate 16 07/22/18 13:32 Blood Pressure 128/60 07/22/18 13:32 O2 Sat by Pulse Oximetry (%) 100 07/22/18 13:32 <Seun Fletcher - Last Filed: 07/22/18 15:30> - Procedure Monitoring Vital Signs: Procedure Monitoring Vital Signs Temperature 97.7 F 07/22/18 13:32 Pulse Rate 87 07/22/18 13:32 Respiratory Rate 16 07/22/18 13:32 Blood Pressure 128/60 07/22/18 13:32 O2 Sat by Pulse Oximetry (%) 100 07/22/18 13:32 <Lamont James - Last Filed: 07/22/18 17:11> Heart Score/ECG Review - ECG Impressions Comment:: 07/22/18 16:41 Twelve-lead EKG was performed and reviewed by me. Irregularly irregular Rate of 71 Left axis deviation Nonspecific interventricular block <Lamont James - Last Filed: 07/22/18 17:11> ED Treatment Course - LABORATORY CBC & Chemistry Diagram: 07/22/18 15:00 07/22/18 13:33 - ADDITIONAL ORDERS Additional order review: 07/22/18 15:00 RBC 3.11 L MCV 98.1 H MCHC 32.9 RDW 18.8 H MPV 10.2 Neutrophils % 76.3 Lymphocytes % 9.0 D Monocytes % 14.0 H Eosinophils % 0.4 Basophils % 0.3 <Seun Fletcher - Last Filed: 07/22/18 15:30> - LABORATORY CBC & Chemistry Diagram: 07/22/18 15:00 07/22/18 13:33 <Lamont James - Last Filed: 07/22/18 17:11> Medical Decision Making - Medical Decision Making 07/22/18 14:32 78y M hx of htn, colon ca sp resection, afib (on asa), ESRD, dementia, renal osteodystrophy and PAD presents from wound care. Pt ntoes he has a had a wound on his posterior heel for the past several weeks. no systemic complaints will obtain blood work, cultures, xrays r/.o soft tissue infection vs osteo anticipate admission for further management 07/22/18 17:09 labs reviewed no leukocytosis Case was discussed with Dr. Chong - agreed with admission for further management of his wounds, surgery was bedside evaluating the patient would've like a CTa. stable for admission to [facility] Case discussed in detail with admitting physician including history, physical exam and ancillary studies. Admitting physician has assumed care for the patient, will follow all pending diagnostics and will complete the evaluation and treatment. A portion of this note was documented by scribe services under my direction. I have reviewed the details of the note, within reason, and agree with the documentation with the following case summary and management plan written by me <Lamont James - Last Filed: 07/22/18 17:11> *DC/Admit/Observation/Transfer - Attestations Scribe Attestion: 07/22/18 15:33 Documentation prepared by Seun Fletcher, acting as medical anthropologist for Lamont James MD. <Seun Fletcher - Last Filed: 07/22/18 15:30> - Discharge Dispostion Decision to Admit order: Yes <Lamont James - Last Filed: 07/22/18 17:11> Diagnosis at time of Disposition: Gangrene of toe of left foot, ESRD (end stage renal disease), Peripheral arterial disease Wound of right leg Qualifiers: Encounter type: initial encounter Qualified Code(s): S81.801A - Unspecified open wound, right lower leg, initial encounter - Discharge Dispostion Condition at time of disposition: Stable
[2018-07-22 15:21] LABS: BASO % 0.3 % (0-2.0); EOS % 0.4 % (0-4.5); HEMATOCRIT 30.5 % (35.4-49); MCH 32.2 pg (25.7-33.7); MCHC 32.9 g/dl (32.0-35.9); MEAN CELL VOLUME 98.1 fl (80-96); MEAN PLT VOLUME 10.2 fl (7.5-11.1); NEUT % 76.3 % (42.8-82.8); PLATELET COUNT 119 K/MM3 (134-434); RBC 3.11 M/mm3 (4.00-5.60); RDW 18.8 % (11.9-15.9); WHITE BLOOD COUNT 7.6 K/mm3 (4.0-10.0)
[2018-07-22 15:53] LABS: ANION GAP 11 MMOL/L (8-16); BLOOD UREA NITROGEN 43 mg/dL (7-18); CALCIUM 8.5 mg/dL (8.5-10.1); CHLORIDE 99 mmol/L (98-107); CO2 26 mmol/L (21-32); CREATININE 4.9 mg/dL (0.55-1.3); GLUCOSE,RANDOM 124 mg/dL (74-106); POTASSIUM 4.8 mmol/L (3.5-5.1); SODIUM 136 mmol/L (136-145)
[2018-07-22] MEDS ORDERED: ACETAMINOPHEN 325 MG TABLET (FP) PO ONE (16:39)
[2018-07-22] MEDS ORDERED: ACETAMINOPHEN 325 MG TABLET (FP) ONE (16:41)
[2018-07-22] MEDS ORDERED: VANCOMYCIN 1,000 MG in DEXTROSE 5%-WATER - 250 ML IVPB ONE (17:05)
[2018-07-22] MEDS ORDERED: PIPERACILLIN/TAZOB 4.5 GM 4.5 GM in DEXTROSE 5%-WATER 100 ML IVPB ONE (17:06)
--- NOTE | 2018-07-22 17:48 | PN ---
Teaching Attending Note Name of Resident: Bladimir Staples ATTENDING PHYSICIAN STATEMENT I saw and evaluated the patient. I reviewed the resident's note and discussed the case with the resident. I agree with the resident's findings and plan as documented with exceptions below. SUBJECTIVE: 78 yom with PMhx of CAD, ESRD on HD, severe PAD/Left foot ischemia 08/2016 s/p atherectomy/angioplasty on ASA/Plavix, afib, Dementia, Colon Ca s/p resection, renal osteodystrophy, recently admitted with severe anemia (6) s/p EGD with non bleeding gastric ulcer/Erosive duodenitis taken off ASA/plavix, sent in with bilateral lower extremity wounds. Patient reports his leg wounds have been present for months, but unsure how it started. 12 point ROS attempted but limited given his dementia. Current reports pain in left foot but no fevers, chills, asymptomatic otherwise. Today was seen in wound care and sent to ED for possible vascular intervention and antibiotics. OBJECTIVE: Vital Signs Period Temp Pulse Resp BP Sys/Medina Pulse Ox Last 24 Hr 97.7 F 83-87 16-18 128-134/60-71 100-100 Intake & Output 07/19/18 07/20/18 07/21/18 07/22/18 23:59 23:59 23:59 23:59 Weight 175 lb GENERAL: Awake, alert, and fully, oriented to self, time but not to place, no acute distress HEAD: Normal with no signs of trauma. EYES: Pupils equal, round and reactive to light, extraocular movements intact, sclera anicteric, conjunctiva clear. No lid lag. EARS, NOSE, THROAT: Ears normal, nares patent, oropharynx clear without exudates. Moist mucous membranes. NECK: Soft, Supple, no JVD LUNGS: Breath sounds equal, clear to auscultation bilaterally. No wheezes, and no crackles. No accessory muscle use. HEART: S1S2 regular ABDOMEN: Soft, nontender, not distended, normoactive bowel sounds, no guarding, no rebound, no masses. UPPER EXTREMITIES: 2+ pulses, warm, well-perfused. No cyanosis. No clubbing. No peripheral edema. LOWER EXTREMITIES: Left foot, dry gangrene distal left great and left 2nd toe, swelling with erythema/tenderness more in distal great toe and whole of left second toe, skin scaling, unable to palpate left DP RLE - right foot toes with scaling, 3 cm oval ulcer with eschar left posterior ankle area with surround swelling erythema, dopplerable right DP pulse NEUROLOGICAL: facial symmetry, tongue midline, moves all extremities freely PSYCHIATRIC: Cooperative. Good eye contact. Appropriate mood and affect. SKIN: Warm, dry, normal turgor, no rashes or lesions noted, normal capillary refill. Home Medications Medication Instructions Recorded Alprazolam [Xanax] 0.5 mg PO BID PRN 08/15/16 Atenolol [Tenormin -] 50 mg PO DAILY 08/15/16 Oxycodone HCl/Acetaminophen 1 tab PO Q6H 08/15/16 [Percocet 5-325 mg Tablet] Zolpidem Tartrate [Ambien] 5 mg PO HS 08/15/16 traZODone HCL [Trazodone HCl] 50 mg PO HS 08/15/16 Cinacalcet HCl [Sensipar -] 30 mg PO DAILY 06/30/18 Docusate Sodium [Colace] 2 cap PO HS 06/30/18 Escitalopram Oxalate [Lexapro -] 10 mg PO DAILY 06/30/18 Memantine HCl [Namenda -] 5 mg PO BID 06/30/18 Polyethylene Glycol 3350 1,700 gm PO DAILY 06/30/18 [Laxaclear] Sennosides [Senna Concentrate] 8.6 mg PO DAILY 06/30/18 Sevelamer Carbonate [Renvela -] 800 mg PO TID 06/30/18 Vit B Comp No.3/Folic/C/Biotin 1 each PO DAILY 06/30/18 [Nephro-Louie Rx Tablet] Atorvastatin Ca [Lipitor] 10 mg PO HS tablet 07/04/18 Pantoprazole Sodium [Protonix] 40 mg PO ASDIR #60 tablet. 07/04/18 Active Medications Vancomycin HCl 1,000 mg/ (Dextrose) 250 mls @ 250 mls/hr IVPB ONCE ONE; Protocol Stop: 07/22/18 18:04 Laboratory Results - last 24 hr 07/22/18 07/22/18 07/22/18 13:33 14:41 15:00 WBC 7.6 RBC 3.11 L Hgb 10.0 L Hct 30.5 L D MCV 98.1 H MCH 32.2 MCHC 32.9 RDW 18.8 H Plt Count 119 L MPV 10.2 Absolute Neuts (auto) 5.8 Neutrophils % 76.3 Lymphocytes % 9.0 D Monocytes % 14.0 H Eosinophils % 0.4 Basophils % 0.3 Nucleated RBC % 0 ESR Sodium 136 Potassium 4.8 Chloride 99 Carbon Dioxide 26 Anion Gap 11 BUN 43 H Creatinine 4.9 H Creat Clearance w eGFR 11.49 Random Glucose 124 H Calcium 8.5 C-Reactive Protein 4.1 H 07/22/18 15:00 WBC RBC Hgb Hct MCV MCH MCHC RDW Plt Count MPV Absolute Neuts (auto) Neutrophils % Lymphocytes % Monocytes % Eosinophils % Basophils % Nucleated RBC % ESR 83 H Sodium Potassium Chloride Carbon Dioxide Anion Gap BUN Creatinine Creat Clearance w eGFR Random Glucose Calcium C-Reactive Protein bilateral foot xray results reviewed CXR results reviewed EKG irregularly irregular, rate 71 ASSESSMENT AND PLAN: 78 yom with PMhx of CAD, ESRD on HD, severe PAD/Left foot ischemia 08/2016 s/p atherectomy/angioplasty on ASA/Plavix, afib, Dementia, Colon Ca s/p resection, renal osteodystrophy, recently admitted with severe anemia (6) s/p EGD with non bleeding gastric ulcer/Erosive duodenitis taken off ASA/plavix, sent in with bilateral lower extremity wounds. -left second toe -Right heel -Severe PAD -Recent severe anemia/GIBleed off ASA/plavix -ESRD on HD -CAD -Atrial fibrillation -Dementia -Renal osteodystrophy -Colon Ca s/p resection Plan Vascuar surgery/ID consult. Will need I&D left heel ulcer and further vascular study. Blood cx sent. Zosyn/vancomycin renal dosing. ESR/CRP For CTA. Renal consult for HD. Off ASA/plavix currently. GI input if needs resumption of antiplatelets Protonix daily. Atenolol/statin DVTPPX heparin Dispo pending clinical improvement. Plan discussed with patient and all questions answered. Care co-ordinated with ED, surgery. Total admit time spent 65 min.
[2018-07-22] MEDS ORDERED: PIPERACILLIN/TAZOB 2.25 GM 2.25 GM in DEXTROSE 5%-WATER - 50 ML IVPB ONE (18:52)
--- NOTE | 2018-07-22 19:05 | HP ---
CHIEF COMPLAINT: lower extremity wounds PCP: Dr. Salazar HISTORY OF PRESENT ILLNESS: 78 y/o M with PMH HTN, colon CA s/p resection (25 yrs ago), afib (had been on eliquis, coumadin prior. DAPT held d/t recent admission GIB. ), ESRD (M, W, F), renal osteodystrophy, dementia, PAD, who was sent by vascular team for evaluation of lower extremity wounds. Pt poor historian. Endorses wounds on R heel (eschar), as well as L 1st, 2nd toe gangrene. States that he has never noted foul-smell, drainage, or erythema in either of his lower extremities. At baseline, he ambulates using a wheelchair. Lives at [facility] home independently, however has assistance there. Pt states that he has followed with Dr. Martinez over the past year. Recently , has followed with Dr. Mcknight at the wound care center. ER course was notable for: (1) vanc, zosyn (2) Tylenol (3) Recent Travel: denies PAST MEDICAL HISTORY: as above PAST SURGICAL HISTORY: L inguinal hernia repair, ?umbilical hernia- pt unsure Social History: retired; worked in a [employer] prior Smoking: marijuana in past Alcohol: socially Drugs: has used marjuana, cocaine in past "when he was young" Family History: both parents passed when pt was 1 y/o. Allergies No Known Allergies Allergy (Verified 08/15/16 11:51) HOME MEDICATIONS: Home Medications Medication Instructions Recorded Alprazolam [Xanax] 0.5 mg PO BID PRN 08/15/16 Atenolol [Tenormin -] 50 mg PO DAILY 08/15/16 Oxycodone HCl/Acetaminophen 1 tab PO Q6H 08/15/16 [Percocet 5-325 mg Tablet] Zolpidem Tartrate [Ambien] 5 mg PO HS 08/15/16 traZODone HCL [Trazodone HCl] 50 mg PO HS 08/15/16 Cinacalcet HCl [Sensipar -] 30 mg PO DAILY 06/30/18 Docusate Sodium [Colace] 2 cap PO HS 06/30/18 Escitalopram Oxalate [Lexapro -] 10 mg PO DAILY 06/30/18 Memantine HCl [Namenda -] 5 mg PO BID 06/30/18 Polyethylene Glycol 3350 1,700 gm PO DAILY 06/30/18 [Laxaclear] Sennosides [Senna Concentrate] 8.6 mg PO DAILY 06/30/18 Sevelamer Carbonate [Renvela -] 800 mg PO TID 06/30/18 Vit B Comp No.3/Folic/C/Biotin 1 each PO DAILY 06/30/18 [Nephro-Louie Rx Tablet] Atorvastatin Ca [Lipitor] 10 mg PO HS tablet 07/04/18 Pantoprazole Sodium [Protonix] 40 mg PO ASDIR #60 tablet. 07/04/18 REVIEW OF SYSTEMS CONSTITUTIONAL: Absent: fever, chills, diaphoresis, generalized weakness, malaise, loss of appetite, weight change HEENT: Absent: rhinorrhea, nasal congestion, throat pain, throat swelling, difficulty swallowing, mouth swelling, ear pain, eye pain, visual changes CARDIOVASCULAR: Absent: chest pain, syncope, palpitations, irregular heart rate, lightheadedness , peripheral edema RESPIRATORY: Absent: cough, shortness of breath, dyspnea with exertion, orthopnea, wheezing, stridor, hemoptysis GASTROINTESTINAL: Absent: abdominal pain, abdominal distension, nausea, vomiting, diarrhea, constipation, melena, hematochezia GENITOURINARY: Absent: dysuria, frequency, urgency, hesitancy, hematuria, flank pain, genital pain MUSCULOSKELETAL: Absent: myalgia, arthralgia, joint swelling, back pain, neck pain SKIN: +lower extremity wounds - eschar, gangrene Absent: rash, itching, pallor HEMATOLOGIC/IMMUNOLOGIC: Absent: easy bleeding, easy bruising, lymphadenopathy, frequent infections ENDOCRINE: Absent: unexplained weight gain, unexplained weight loss, heat intolerance, cold intolerance NEUROLOGIC: Absent: headache, focal weakness or paresthesias, dizziness, unsteady gait, seizure, mental status changes, bladder or bowel incontinence PSYCHIATRIC: Absent: anxiety, depression, suicidal or homicidal ideation, hallucinations. PHYSICAL EXAMINATION Vital Signs - 24 hr 07/22/18 07/22/18 13:32 17:04 Temperature 97.7 F Pulse Rate 87 Pulse Rate [ 83 Left] Respiratory 16 18 Rate Blood Pressure 128/60 Blood Pressure 134/71 [Right Arm] O2 Sat by Pulse 100 100 Oximetry (%) GENERAL: Pleasant. Sitting up in bed, AAOx2 (self, year). in no acute distress HEAD: Normal with no signs of trauma. EYES: Pupils equal, round and reactive to light, extraocular movements intact, sclera anicteric EARS, NOSE, THROAT: Ears normal, nares patent, oropharynx clear. Moist mucous membranes NECK: Normal range of motion, supple LUNGS: Breath sounds equal, clear to auscultation bilaterally. No wheezes, and no crackles. HEART: +irregularly irreg rate and rhythm, normal S1 and S2 without murmur, rub or gallop. ABDOMEN: Soft, nontender, mildly distended, normoactive bowel sounds. + umbilical hernia; reducible LOWER EXTREMITIES: 1+ dp pulses b/l. +R heel eschar . with surrounding erythema , diffusely TTP. +L great toe, 2nd toe- with gangrene, surrounding erythema. diffusely TTP. NEUROLOGICAL: able to move upper and lower extremities on own. would not participate in full neuro exam. PSYCHIATRIC: Cooperative. Good eye contact. Appropriate mood and affect. SKIN: Warm, dry Laboratory Results - last 24 hr 07/22/18 07/22/18 07/22/18 13:33 14:41 15:00 WBC 7.6 RBC 3.11 L Hgb 10.0 L Hct 30.5 L D MCV 98.1 H MCH 32.2 MCHC 32.9 RDW 18.8 H Plt Count 119 L MPV 10.2 Absolute Neuts (auto) 5.8 Neutrophils % 76.3 Lymphocytes % 9.0 D Monocytes % 14.0 H Eosinophils % 0.4 Basophils % 0.3 Nucleated RBC % 0 ESR Sodium 136 Potassium 4.8 Chloride 99 Carbon Dioxide 26 Anion Gap 11 BUN 43 H Creatinine 4.9 H Creat Clearance w eGFR 11.49 Random Glucose 124 H Calcium 8.5 C-Reactive Protein 4.1 H Additional testing 07/22/18 07/22/18 14:41 15:00 ESR 83 H C-Reactive Protein 4.1 H ASSESSMENT/PLAN: 78 y/o M with PMH HTN, colon CA s/p resection (25 yrs ago), afib (had been on eliquis, coumadin prior. DAPT held d/t recent admission GIB. ), ESRD (M, W, F), renal osteodystrophy, dementia, PAD, who was sent by vascular team for evaluation of lower extremity wounds. #B/l lower extremity wounds #PAD -with gangrene, eschar. will undergo CTA with runoff for further evaluation, followed by dialysis -may need I&D. will also tx for infection/cellulitis/?OM with vanc, zosyn 2.25 x 2 doses q8h. f/u vanc trough before dialysis further management as per ID -with elevated ESR, CRP -will be seen by ID, vascular -wound care -f/u blood cx #HTN-currently controlled -continue atenolol #afib -has been off asa,plavix d/t recent GIB, anemia -off a/c #ESRD -M, W, F: for dialysis tomorrow after CTA -nephro for dialysis #F/E/N not on IVF; dialysis pt avoid overload continue to follow lytes Na controlled /renal diet #PPX Hep 5000 SQ TID #Dispo monitoring on med-surg note: pt did not arrive with chart. will need to contact [facility] for updated med list Visit type - Emergency Visit Emergency Visit: Yes Care time: The patient presented to the Emergency Department on the above date and was hospitalized for further evaluation of their emergent condition. - New Patient This patient is new to me today: Yes Date on this admission: 07/22/18 - Critical Care Critical Care patient: No
[2018-07-22] MEDS ORDERED: VANCOMYCIN 1 GRAM (PRE-DOCKED) 1,000 MG/250 ML BAG IVPB ONE (19:42)
[2018-07-22] MEDS ORDERED: PIPERACILLIN/TAZOB 2.25 GM 2.25 GM/50 ML BAG IVPB ONE (19:42)
[2018-07-22] MEDS ORDERED: PANTOPRAZOLE SODIUM 40 MG VIAL ONE (19:43)
[2018-07-22] MEDS: PANTOPRAZOLE SODIUM 40 MG VIAL IVPUSH SCH (20:00)
--- NOTE | 2018-07-22 22:07 | CONSULT ---
Consult - History of Present Illness History of Present Illness: 78 year old man with ESRD on HD and PAD who I have treated n the past for ischemic wounds of the left leg. He now has been treated at the [facility] for a right heel wound and has progressed to a large open wound involving tendon. He has pain in the leg. - Past Medical History Cardio/Vascular: Yes: CAD, HTN Renal/: Yes: Renal Failure - Past Surgical History Past Surgical History: Yes: AV Fistula/Graft - Alcohol/Substance Use Hx Alcohol Use: No History of Substance Use: reports: None - Smoking History Smoking history: Never smoked Have you smoked in the past 12 months: No - Social History Usual Living Arrangement: Correction ADL: Support Services History of Recent Travel: No Home Medications - Allergies Allergies/Adverse Reactions: Allergies Allergy/AdvReac Type Severity Reaction Status Date / Time No Known Allergies Allergy Verified 08/15/16 11:51 - Home Medications Home Medications: Ambulatory Orders RX: Alprazolam [Xanax] 0.5 mg PO BID PRN 08/15/16 RX: Atenolol [Tenormin -] 50 mg PO DAILY 08/15/16 RX: Oxycodone HCl/Acetaminophen [Percocet 5-325 mg Tablet] 1 tab PO Q6H RX: Zolpidem Tartrate [Ambien] 5 mg PO HS 08/15/16 RX: traZODone HCL [Trazodone HCl] 50 mg PO HS 08/15/16 RX: Cinacalcet HCl [Sensipar -] 30 mg PO DAILY 06/30/18 RX: Docusate Sodium [Colace] 2 cap PO HS 06/30/18 RX: Escitalopram Oxalate [Lexapro -] 10 mg PO DAILY 06/30/18 RX: Memantine HCl [Namenda -] 5 mg PO BID 06/30/18 RX: Polyethylene Glycol 3350 [Laxaclear] 1,700 gm PO DAILY 06/30/18 RX: Sennosides [Senna Concentrate] 8.6 mg PO DAILY 06/30/18 RX: Sevelamer Carbonate [Renvela -] 800 mg PO TID 06/30/18 RX: Vit B Comp No.3/Folic/C/Biotin [Nephro-Louie Rx Tablet] 1 each PO DAILY 06/30 Pantoprazole Sodium [Protonix] 40 mg PO ASDIR #60 tablet. 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 Will need imaging with CTA and revascularization for limb salvage. Code(s): I70.269 - ATHSCL [place] ARTERIES OF EXTRM W GANGR[place], UNSP EXTREMITY
[2018-07-22] MEDS: ATORVASTATIN CA 10 MG TABLET (FP) PO SCH (22:57)
[2018-07-22] MEDS: HEPARIN NA (PORCINE) 5,000 UNITS/ML 1ML VIAL SQ SCH (22:57)
[2018-07-23] MEDS ORDERED: ACETAMINOPHEN 325 MG TABLET (FP) PO ONE (00:21)
[2018-07-23] MEDS ORDERED: DEXTROSE 5%-WATER - 50 ML IVPB ONE ×2 (04:38→17:35)
[2018-07-23] MEDS ORDERED: PIPERACILLIN/TAZOBACTAM 2.25 GM VIAL IVPB ONE ×2 (04:38→17:35)
[2018-07-23] MEDS ORDERED: PIPERACILLIN/TAZOB 2.25 GM 2.25 GM in DEXTROSE 5%-WATER - 50 ML IVPB ONE ×2 (05:00→16:40)
[2018-07-23] MEDS: HEPARIN NA (PORCINE) 5,000 UNITS/ML 1ML VIAL SQ SCH ×3 (05:22→21:11)
[2018-07-23 08:44] LABS: ANION GAP 14 MMOL/L (8-16); BLOOD UREA NITROGEN 51 mg/dL (7-18); CALCIUM 9.1 mg/dL (8.5-10.1); CHLORIDE 98 mmol/L (98-107); CO2 23 mmol/L (21-32); CREATININE 5.7 mg/dL (0.55-1.3); GLUCOSE,RANDOM 100 mg/dL (74-106); MAGNESIUM 2.8 mg/dL (1.8-2.4); PHOSPHOROUS 4.7 mg/dL (2.5-4.9); POTASSIUM 4.7 mmol/L (3.5-5.1); SODIUM 134 mmol/L (136-145)
[2018-07-23 10:16] LABS: BASO % 0.3 % (0-2.0); EOS % 0.2 % (0-4.5); HEMOGLOBIN 10.1 GM/dL (11.7-16.9); LYMPH % 6.4 % (8-40); MCH 31.3 pg (25.7-33.7); MCHC 31.5 g/dl (32.0-35.9); MEAN CELL VOLUME 99.4 fl (80-96); MEAN PLT VOLUME 10.2 fl (7.5-11.1); MONO % 13.8 % (3.8-10.2); NEUT % 79.3 % (42.8-82.8); PLATELET COUNT 120 K/MM3 (134-434); RBC 3.23 M/mm3 (4.00-5.60); RDW 19.4 % (11.9-15.9)
[2018-07-23] MEDS: ATENOLOL 50 MG TABLET (FP) PO SCH (11:00)
[2018-07-23] MEDS ORDERED: SODIUM CHLORIDE 250 ML IV PRN (11:03)
[2018-07-23] MEDS: PANTOPRAZOLE SODIUM 40 MG VIAL IVPUSH SCH (11:04)
[2018-07-23] MEDS ORDERED: EPOETIN ALFA 2,000 UNIT/1 ML VIAL IVPUSH ONE (11:15)
--- NOTE | 2018-07-23 11:29 | EKG ---
Test Reason : Blood Pressure : / mmHG Vent. Rate : 071 BPM Atrial Rate : 111 BPM P-R Int : 000 ms QRS Dur : 136 ms QT Int : 420 ms P-R-T Axes : 000 -85 130 degrees QTc Int : 456 ms ATRIAL FIBRILLATION LEFT AXIS DEVIATION NON-SPECIFIC INTRA-VENTRICULAR CONDUCTION BLOCK CANNOT RULE OUT SEPTAL INFARCT (CITED ON OR BEFORE 30-JUN-2018) T WAVE ABNORMALITY, CONSIDER LATERAL ISCHEMIA ABNORMAL ECG WHEN COMPARED WITH ECG OF 03-JUL-2018 12:50, NO SIGNIFICANT CHANGE WAS FOUND Confirmed by VISH POLLARD, ADRIANNA ([id number]) on 07/23/2018 11:28:40 AM Referred By: Confirmed By:ADRIANNA WAHL MD
--- NOTE | 2018-07-23 12:51 | CONSULT ---
Consult - text type - Consultation Consultation Note: Renal consult for ESRD on HD This is a 78 year old gentleman with history of ESRD on HD (MWF), Hypertension, Colon Ca s/p resection, Afib, PVD who presented with non-healing lower leg wounds Last dialysis was Thursday. Denies any fever, chills, abd pain, N/V/D. No CP. Wounds on legs have been there for a few weeks. Has not been getting antibiotics at dialysis. Unclear if pt was getting antibiotics at the [facility]. No SOB , CP, Abd pain, N/V/D. PMhx: as above Allergies: NKDA Family Hx: NC Social Hx: no T/A/D ROS: as per HPI, all other pertinent ros negative Home Medications Medication Instructions Recorded Alprazolam [Xanax] 0.5 mg PO BID PRN 08/15/16 Atenolol [Tenormin -] 50 mg PO DAILY 08/15/16 Oxycodone HCl/Acetaminophen 1 tab PO Q6H 08/15/16 [Percocet 5-325 mg Tablet] Zolpidem Tartrate [Ambien] 5 mg PO HS 08/15/16 traZODone HCL [Trazodone HCl] 50 mg PO HS 08/15/16 Cinacalcet HCl [Sensipar -] 30 mg PO DAILY 06/30/18 Docusate Sodium [Colace] 2 cap PO HS 06/30/18 Escitalopram Oxalate [Lexapro -] 10 mg PO DAILY 06/30/18 Memantine HCl [Namenda -] 5 mg PO BID 06/30/18 Polyethylene Glycol 3350 1,700 gm PO DAILY 06/30/18 [Laxaclear] Sennosides [Senna Concentrate] 8.6 mg PO DAILY 06/30/18 Sevelamer Carbonate [Renvela -] 800 mg PO TID 06/30/18 Vit B Comp No.3/Folic/C/Biotin 1 each PO DAILY 06/30/18 [Nephro-Louie Rx Tablet] Atorvastatin Ca [Lipitor] 10 mg PO HS tablet 07/04/18 Pantoprazole Sodium [Protonix] 40 mg PO ASDIR #60 tablet. 07/04/18 Vital Signs Temperature 97.6 F 07/23/18 06:00 Pulse Rate 85 12/21/18 06:00 Respiratory Rate 24 H 07/23/18 06:00 Blood Pressure 118/65 07/23/18 06:00 O2 Sat by Pulse Oximetry (%) 94 L 07/23/18 01:35 NAD awake and alert neck supple, no JVD RRR CTA soft NT/ND ulcer with eschar on right achilles area no edema in LE right AVF CBC, BMP 07/23/18 07:30 07/23/18 07:30 Current Medications Atenolol (Tenormin -) 50 mg PO DAILY [facility] Last Admin: 07/23/18 11:00 Dose: Not Given Atorvastatin Calcium (Lipitor -) 10 mg PO HS [facility] Last Admin: 07/22/18 22:57 Dose: 10 mg Heparin Sodium (Porcine) (Heparin -) 5,000 unit SQ TID [facility] Last Admin: 07/23/18 05:22 Dose: Not Given Sodium Chloride (Normal Saline -) 250 mls @ 3,000 mls/hr IV PRN PRN PRN Reason: Hypotension during Dialysis Stop: 07/24/18 11:02 Pantoprazole Sodium (Protonix Iv) 40 mg IVPUSH DAILY [facility] Last Admin: 07/23/18 11:04 Dose: 40 mg 78 year old gentleman with history of ESRD on HD (MWF), Hypertension, Colon Ca s /p resection, Afib, PVD who presented with non-healing lower leg wounds. #Non-healing LE wounds #ESRD on HD #Anemia #Renal Osteodystrophy For CTA of the Legs today as per vascular recs will have dialysis as inpatient following CT scan Renal diet and 1.2L fluid restriction as an inpatient WIll continue TIW dialysis as an inpatient will give empiric Vanco with HD today if level < 20 vascular and ID follow up Trend phos levels Thank you Armen Machado DO
[2018-07-23] MEDS ORDERED: VANCOMYCIN 1 GM in D5W (PRE-DOCKED) 1,000 MG/250 ML IVPB ONE (12:57)
--- NOTE | 2018-07-23 15:12 | PN ---
Physical Exam: SUBJECTIVE: Patient seen and examined at bedside this morning. Denies acute complaints this morning. Denies drainage or bleeding from wounds. Denies fevers , chills, shortness of breath, chest pain, palpitations, abdominal pain, nausea , vomiting, diarrhea. Discussed case with son Sameer [phone]. -Pending CTA scan, and discussion with vascular surgery recommendations. OBJECTIVE: Vital Signs Period Temp Pulse Resp BP Sys/Medina Pulse Ox Last 24 Hr 97.4 F-98.3 F 73-106 16-24 98-147/50-85 94-100 GENERAL: The patient is awake, alert, and fully oriented, in no acute distress. HEAD: Normal with no signs of trauma. EYES: PERRL, extraocular movements intact, sclera anicteric, conjunctiva clear. ENT: Ears normal, nares patent, oropharynx clear without exudates, moist mucous membranes. NECK: Trachea midline, full range of motion, supple. LUNGS: Breath sounds equal, clear to auscultation bilaterally, no wheezes, no crackles, no accessory muscle use. HEART: Irregular rate and rhythm, S1, S2 without murmur, rub or gallop. ABDOMEN: Soft, nontender, nondistended, normoactive bowel sounds, no guarding, no rebound, no hepatosplenomegaly. Reducible umbilical hernia noted. EXTREMITIES: 2+ radial pulses b/l, 1+ dorsalis pedis pulses b/l. 1+ pitting edema b/l lower extremities. NEUROLOGICAL: Cranial nerves II through XII grossly intact. Normal speech. PSYCH: Normal mood, normal affect upon my encounter today. SKIN: Right heel wound overlying Achilles tendon with granuloma. Nondraining, tender to palpation. Left first and second distal toes gangrenous. Sensation intact until area of gangrenous toes, and right heel wound. Laboratory Results - last 24 hr 07/22/18 07/22/18 07/22/18 13:33 14:41 15:00 WBC 7.6 RBC 3.11 L Hgb 10.0 L Hct 30.5 L D MCV 98.1 H MCH 32.2 MCHC 32.9 RDW 18.8 H Plt Count 119 L MPV 10.2 Absolute Neuts (auto) 5.8 Neutrophils % 76.3 Lymphocytes % 9.0 D Monocytes % 14.0 H Eosinophils % 0.4 Basophils % 0.3 Nucleated RBC % 0 ESR Sodium 136 Potassium 4.8 Chloride 99 Carbon Dioxide 26 Anion Gap 11 BUN 43 H Creatinine 4.9 H Creat Clearance w eGFR 11.49 Random Glucose 124 H Calcium 8.5 Phosphorus Magnesium C-Reactive Protein 4.1 H Random Vancomycin Vancomycin Pre-Dose 07/22/18 07/23/18 07/23/18 15:00 07:30 07:30 WBC 10.0 RBC 3.23 L Hgb 10.1 L Hct 32.0 L MCV 99.4 H MCH 31.3 MCHC 31.5 L RDW 19.4 H Plt Count 120 L MPV 10.2 Absolute Neuts (auto) 8.0 Neutrophils % 79.3 Lymphocytes % 6.4 L D Monocytes % 13.8 H Eosinophils % 0.2 Basophils % 0.3 Nucleated RBC % 0 ESR 83 H Sodium 134 L Potassium 4.7 Chloride 98 Carbon Dioxide 23 Anion Gap 14 BUN 51 H Creatinine 5.7 H Creat Clearance w eGFR 9.65 Random Glucose 100 Calcium 9.1 Phosphorus 4.7 Magnesium 2.8 H C-Reactive Protein Random Vancomycin Vancomycin Pre-Dose 07/23/18 07/23/18 10:30 13:00 WBC RBC Hgb Hct MCV MCH MCHC RDW Plt Count MPV Absolute Neuts (auto) Neutrophils % Lymphocytes % Monocytes % Eosinophils % Basophils % Nucleated RBC % ESR Sodium Potassium Chloride Carbon Dioxide Anion Gap BUN Creatinine Creat Clearance w eGFR Random Glucose Calcium Phosphorus Magnesium C-Reactive Protein Random Vancomycin 10.2 L Vancomycin Pre-Dose 13.7 L Active Medications Generic Name Dose Route Start Last Admin Trade Name Freq PRN Reason Stop Dose Admin Atenolol 50 mg 07/23/18 10:00 07/23/18 11:00 Tenormin - PO Not Given DAILY [facility] Atorvastatin Calcium 10 mg 07/22/18 22:00 07/22/18 22:57 Lipitor - PO 10 mg HS [facility] Administration Heparin Sodium (Porcine) 5,000 unit 07/22/18 22:00 07/23/18 05:22 Heparin - SQ Not Given TID [facility] Sodium Chloride 250 mls @ 3,000 mls/hr 07/23/18 11:03 Normal Saline - IV 07/24/18 11:02 PRN PRN Hypotension during Dialysis Pantoprazole Sodium 40 mg 07/22/18 18:45 07/23/18 11:04 Protonix Iv IVPUSH 40 mg DAILY [facility] Administration ASSESSMENT/PLAN: Patient is an 78 year old male with history of hypertension, Afib (currently not on anticoagulation), ESRD on HD Mon/Thu/Thu, colon CA s/p resection, renal osteodystrophy, peripheral arterial disease, dementia presents from [facility] with complaint of lower extremity wounds Bilateral lower extremity wounds -Left foot gangrenous first and second toes. Right foot wound overlying Achilles tendon. -Vancomycin 1000mg IV, Zosyn 2.25 grams Q8H -F/U ID consult (Dr. Scott) -F/U CTA lower extremities -F/U vascular surgery recommendations ESRD on HD -Nephrology consult (Dr. Machado) appreciated. -Patient for HD today after CTA Afib -Patient is currently not on anticoagulation due to due to GI bleed on prior recent admission. Has been on Eliquis and Coumadin in the past. -Currently rate controlled Hypertension -Atenolol 50mg PO daily Hyperlipidema -Atorvastatin 10mg PO daily FEN -No IV fluids -Follow CMP -Sodium, renal controlled diet Prophylaxis -Heparin 5000u subq TID -Protonix 40mg IV daily Visit type - Emergency Visit Emergency Visit: Yes ED Registration Date: 07/22/18 Care time: The patient presented to the Emergency Department on the above date and was hospitalized for further evaluation of their emergent condition. - New Patient This patient is new to me today: Yes Date on this admission: 07/23/18 - Critical Care Critical Care patient: No - Discharge Referral Referred to [facility] Med P.C.: No
[2018-07-23] MEDS ORDERED: VANCOMYCIN 1 GRAM (PRE-DOCKED) 1,000 MG/250 ML BAG IVPB ONE (17:30)
[2018-07-23] MEDS: PIPERACILLIN/TAZOB 2.25 GM 2.25 GM in DEXTROSE 5%-WATER - 50 ML IVPB SCH (17:52)
[2018-07-23] MEDS ORDERED: INSULIN (NOVOLOG) ASPART 100 UNITS/ML 10ML VIAL ONE (17:58)
--- NOTE | 2018-07-23 18:19 | PN ---
Teaching Attending Note Name of Resident: Bladimir Staples ATTENDING PHYSICIAN STATEMENT I saw and evaluated the patient. I reviewed the resident's note and discussed the case with the resident. I agree with the resident's findings and plan as documented with exceptions below. SUBJECTIVE: Patient seen and examined. Leg pain unchanged, no new complaints. OBJECTIVE: Vital Signs Period Temp Pulse Resp BP Sys/Medina Pulse Ox Last 24 Hr 97.4 F-98.3 F 73-106 16-24 98-150/50-102 94-97 Intake & Output 07/20/18 07/21/18 07/22/18 07/23/18 23:59 23:59 23:59 23:59 Intake Total 1190 Balance 1190 Weight 175 lb 172 lb 3 oz General: lying in bed, getting HD Extremities: LE findings unchanged with left toes eschar and 2nd toe edema/ erythema, Right heel eschar with swelling/erythema Home Medications Medication Instructions Recorded Alprazolam [Xanax] 0.5 mg PO BID PRN 08/15/16 Atenolol [Tenormin -] 50 mg PO DAILY 08/15/16 Oxycodone HCl/Acetaminophen 1 tab PO Q6H 08/15/16 [Percocet 5-325 mg Tablet] Zolpidem Tartrate [Ambien] 5 mg PO HS 08/15/16 traZODone HCL [Trazodone HCl] 50 mg PO HS 08/15/16 Cinacalcet HCl [Sensipar -] 30 mg PO DAILY 06/30/18 Docusate Sodium [Colace] 2 cap PO HS 06/30/18 Escitalopram Oxalate [Lexapro -] 10 mg PO DAILY 06/30/18 Memantine HCl [Namenda -] 5 mg PO BID 06/30/18 Polyethylene Glycol 3350 1,700 gm PO DAILY 06/30/18 [Laxaclear] Sennosides [Senna Concentrate] 8.6 mg PO DAILY 06/30/18 Sevelamer Carbonate [Renvela -] 800 mg PO TID 06/30/18 Vit B Comp No.3/Folic/C/Biotin 1 each PO DAILY 06/30/18 [Nephro-Louie Rx Tablet] Atorvastatin Ca [Lipitor] 10 mg PO HS tablet 07/04/18 Pantoprazole Sodium [Protonix] 40 mg PO ASDIR #60 tablet. 07/04/18 Active Medications Atenolol (Tenormin -) 50 mg PO DAILY [facility] Last Admin: 07/23/18 11:00 Dose: Not Given Atorvastatin Calcium (Lipitor -) 10 mg PO HS [facility] Last Admin: 07/22/18 22:57 Dose: 10 mg Heparin Sodium (Porcine) (Heparin -) 5,000 unit SQ TID [facility] Last Admin: 07/23/18 15:02 Dose: Not Given Sodium Chloride (Normal Saline -) 250 mls @ 3,000 mls/hr IV PRN PRN PRN Reason: Hypotension during Dialysis Stop: 07/24/18 11:02 Piperacillin Sod/Tazobactam (Sod 2.25 gm/ Dextrose) 50 mls @ 100 mls/hr IVPB Q8H-IV [facility]; Protocol Last Admin: 07/23/18 17:52 Dose: Not Given Pantoprazole Sodium (Protonix Iv) 40 mg IVPUSH DAILY [facility] Last Admin: 07/23/18 11:04 Dose: 40 mg Laboratory Results - last 24 hr 07/23/18 07/23/18 07/23/18 07:30 07:30 10:30 WBC 10.0 RBC 3.23 L Hgb 10.1 L Hct 32.0 L MCV 99.4 H MCH 31.3 MCHC 31.5 L RDW 19.4 H Plt Count 120 L MPV 10.2 Absolute Neuts (auto) 8.0 Neutrophils % 79.3 Lymphocytes % 6.4 L D Monocytes % 13.8 H Eosinophils % 0.2 Basophils % 0.3 Nucleated RBC % 0 Sodium 134 L Potassium 4.7 Chloride 98 Carbon Dioxide 23 Anion Gap 14 BUN 51 H Creatinine 5.7 H Creat Clearance w eGFR 9.65 Random Glucose 100 Calcium 9.1 Phosphorus 4.7 Magnesium 2.8 H Random Vancomycin Vancomycin Pre-Dose 13.7 L 07/23/18 13:00 WBC RBC Hgb Hct MCV MCH MCHC RDW Plt Count MPV Absolute Neuts (auto) Neutrophils % Lymphocytes % Monocytes % Eosinophils % Basophils % Nucleated RBC % Sodium Potassium Chloride Carbon Dioxide Anion Gap BUN Creatinine Creat Clearance w eGFR Random Glucose Calcium Phosphorus Magnesium Random Vancomycin 10.2 L Vancomycin Pre-Dose CTA results pending ASSESSMENT AND PLAN: 78 yom with PMhx of CAD, ESRD on HD, severe PAD/Left foot ischemia 08/2016 s/p atherectomy/angioplasty on ASA/Plavix, afib, Dementia, Colon Ca s/p resection, renal osteodystrophy, recently admitted with severe anemia (6) s/p EGD with non bleeding gastric ulcer/Erosive duodenitis taken off ASA/plavix, sent in with bilateral lower extremity wounds. -left second toe ischema/gangrene +/- cellulitis -Right heel eschar with cellulitis -Severe PAD -Recent severe anemia/GIBleed off ASA/plavix -ESRD on HD -CAD -Atrial fibrillation -Dementia -Renal osteodystrophy -Colon Ca s/p resection Plan CTA results pending, follow up with vascular surgery. Zosyn/vancomycin day 2 renal dosing. HD per renal. Blood cx neg so far. ESR/CRP Off ASA/plavix currently. GI input if needs resumption of antiplatelets Protonix daily. Atenolol/statin DVTPPX heparin Dispo pending clinical improvement.
--- NOTE | 2018-07-23 19:10 | CONS ---
DATE OF CONSULTATION: DATE OF DICTATION: 07/23/2018 INFECTIOUS DISEASE CONSULTATION HISTORY OF PRESENT ILLNESS: The patient is an 78-year-old male who is evaluated for foot infections. He was admitted from his nursing facility with a worsening right Achilles tendon area ulceration and gangrene of the left 1st and 2nd toes. He was evaluated in the emergency room where he was found to have a dry ulceration present over the right Achilles tendon area which appeared necrotic and dry gangrene of the distal aspects of the left 1st and 2nd toes. He denies any pain at the present time. No complaints of fevers or chills. No reports of any purulent drainage. He was empirically treated with vancomycin and Zosyn. PAST MEDICAL HISTORY: Positive for end-stage renal disease on hemodialysis, mild dementia, hypertension, atrial fibrillation, colon cancer. PAST SURGICAL HISTORY: Status post colon resection. ALLERGIES: No known allergies. SOCIAL HISTORY: Resides in a nursing facility. Denies tobacco or alcohol use. LABORATORY DATA: White count 10, platelets 120, creatinine 5.7, vancomycin trough 10, ESR 83, C-reactive protein 4.1. PHYSICAL EXAMINATION: General: On exam, he is awake and alert, he is not acutely toxic appearing. Vital signs: Temperature 97.6, blood pressure 149/99, pulse 96 regular, respirations 18 per minute. HEENT: Sclerae anicteric. Cardiovascular: Heart sounds S1, S2. Lungs: Clear. Abdomen: Obese. Soft. Nontender. Extremities: There is a necrotic black ulcer present over the right Achilles tendon area. There is no purulent drainage. Examination of the left foot, there is dry gangrene of distal aspects of the left 1st and 2nd toes. IMPRESSION: 1. Necrotic foot ulcers bilaterally. 2. Peripheral vascular disease. 3. End-stage renal disease on hemodialysis. Await cultures. Surgical evaluation. Empiric antibiotic coverage adjusted for end-stage renal disease with vancomycin and Zosyn. Thank you for the kind referral. NAT CAMARENA M.D. [id number]
[2018-07-23] MEDS: ATORVASTATIN CA 10 MG TABLET (FP) PO SCH (21:51)
[2018-07-23] MEDS: MELATONIN 5 MG TABLETS PO PRN (21:51)
[2018-07-24] MEDS ORDERED: PIPERACILLIN/TAZOBACTAM 2.25 GM VIAL IVPB ONE ×3 (01:18→17:20)
[2018-07-24] MEDS ORDERED: DEXTROSE 5%-WATER - 50 ML IVPB ONE ×3 (01:18→17:20)
[2018-07-24] MEDS: PIPERACILLIN/TAZOB 2.25 GM 2.25 GM in DEXTROSE 5%-WATER - 50 ML IVPB SCH ×3 (02:34→17:25)
[2018-07-24] MEDS: HEPARIN NA (PORCINE) 5,000 UNITS/ML 1ML VIAL SQ SCH ×3 (06:02→21:53)
[2018-07-24] MEDS ORDERED: PT OWN MED DRAWER 7, Y5N ONE (09:50)
[2018-07-24 09:51] LABS: HEMATOCRIT 26.9 % (35.4-49); HEMOGLOBIN 9.1 GM/dL (11.7-16.9); MCH 32.5 pg (25.7-33.7); MCHC 33.7 g/dl (32.0-35.9); MEAN CELL VOLUME 96.4 fl (80-96); MEAN PLT VOLUME 9.7 fl (7.5-11.1); PLATELET COUNT 122 K/MM3 (134-434); RBC 2.79 M/mm3 (4.00-5.60); WHITE BLOOD COUNT 7.8 K/mm3 (4.0-10.0)
[2018-07-24] MEDS: PANTOPRAZOLE SODIUM 40 MG VIAL IVPUSH SCH (10:04)
[2018-07-24] MEDS: ATENOLOL 50 MG TABLET (FP) PO SCH (10:06)
[2018-07-24 10:33] LABS: ALBUMIN 2.6 g/dl (3.4-5.0); ALK PHOS 122 U/L (45-117); ANION GAP 11 MMOL/L (8-16); BILIRUBIN,TOTAL 0.4 mg/dL (0.2-1); BLOOD UREA NITROGEN 31 mg/dL (7-18); CALCIUM 8.8 mg/dL (8.5-10.1); CHLORIDE 100 mmol/L (98-107); CO2 28 mmol/L (21-32); CREATININE 4.5 mg/dL (0.55-1.3); GLUCOSE,RANDOM 107 mg/dL (74-106); POTASSIUM 3.8 mmol/L (3.5-5.1); SGOT/AST 16 U/L (15-37); SGPT/ALT 18 U/L (13-61); SODIUM 139 mmol/L (136-145); TOT PROT 5.8 g/dl (6.4-8.2)
--- NOTE | 2018-07-24 12:13 | PN ---
Progress Note (short form) - Note Progress Note: CTA done but not read! It appears that distal vessels are calcified but patent with no major occlusions seen. Wound with dry necrotic eschar over distal Achilles tendon and calcaneus. I will schedule OR debridement. 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
--- NOTE | 2018-07-24 12:34 | PN ---
Teaching Attending Note Name of Resident: Sunny Connor ATTENDING PHYSICIAN STATEMENT I saw and evaluated the patient. I reviewed the resident's note and discussed the case with the resident. I agree with the resident's findings and plan as documented with exceptions below. SUBJECTIVE: Patient seen and examined. left foot pain unchanged, no new complaints. OBJECTIVE: Vital Signs Period Temp Pulse Resp BP Sys/Medina Pulse Ox Last 24 Hr 97.4 F-98.6 F 73-104 18-20 98-150/50-102 95 Intake & Output 07/21/18 07/22/18 07/23/18 07/24/18 23:59 23:59 23:59 23:59 Intake Total 1490 300 Balance 1490 300 Weight 175 lb 172 lb 3 oz General: lying in bed in no acute distress Extremities: unchanged left toes and right achillies tendon findings Active Medications Atenolol (Tenormin -) 50 mg PO DAILY [facility] Last Admin: 07/24/18 10:06 Dose: 50 mg Atorvastatin Calcium (Lipitor -) 10 mg PO HS [facility] Last Admin: 07/23/18 21:51 Dose: 10 mg Heparin Sodium (Porcine) (Heparin -) 5,000 unit SQ TID [facility] Last Admin: 07/24/18 06:02 Dose: Not Given Piperacillin Sod/Tazobactam (Sod 2.25 gm/ Dextrose) 50 mls @ 100 mls/hr IVPB Q8H-IV [facility]; Protocol Last Admin: 07/24/18 10:06 Dose: 100 mls/hr Melatonin (Melatonin) 5 mg PO HS PRN PRN Reason: INSOMNIA Last Admin: 07/23/18 21:51 Dose: 5 mg Pantoprazole Sodium (Protonix Iv) 40 mg IVPUSH DAILY [facility] Last Admin: 07/24/18 10:04 Dose: 40 mg Laboratory Results - last 24 hr 07/23/18 07/23/18 07/24/18 13:00 13:00 08:00 WBC 7.8 RBC 2.79 L Hgb 9.1 L Hct 26.9 L D MCV 96.4 H MCH 32.5 MCHC 33.7 RDW 18.0 H Plt Count 122 L MPV 9.7 Sodium Potassium Chloride Carbon Dioxide Anion Gap BUN Creatinine Creat Clearance w eGFR Random Glucose Calcium Total Bilirubin AST ALT Alkaline Phosphatase Total Protein Albumin Random Vancomycin 10.2 L Hep C Ab Diagnostic <0.1 07/24/18 08:30 WBC RBC Hgb Hct MCV MCH MCHC RDW Plt Count MPV Sodium 139 Potassium 3.8 Chloride 100 Carbon Dioxide 28 Anion Gap 11 BUN 31 H Creatinine 4.5 H Creat Clearance w eGFR 12.67 Random Glucose 107 H Calcium 8.8 Total Bilirubin 0.4 AST 16 ALT 18 Alkaline Phosphatase 122 H Total Protein 5.8 L Albumin 2.6 L Random Vancomycin Hep C Ab Diagnostic Microbiology 07/22/18 14:45 Blood - Peripheral Venous Blood Culture - Preliminary NO GROWTH OBTAINED AFTER 24 HOURS, INCUBATION TO CONTINUE FOR 4 DAYS. 07/22/18 15:00 Blood - Peripheral Venous Blood Culture - Preliminary NO GROWTH OBTAINED AFTER 24 HOURS, INCUBATION TO CONTINUE FOR 4 DAYS. ASSESSMENT AND PLAN: 78 yom with PMhx of CAD, ESRD on HD, severe PAD/Left foot ischemia 08/2016 s/p atherectomy/angioplasty on ASA/Plavix, afib, Dementia, Colon Ca s/p resection, renal osteodystrophy, recently admitted with severe anemia (6) s/p EGD with non bleeding gastric ulcer/Erosive duodenitis taken off ASA/plavix, sent in with bilateral lower extremity wounds. -left second toe ischema/gangrene +/- cellulitis -Right heel eschar with cellulitis -Severe PAD -Recent severe anemia/GIBleed off ASA/plavix -ESRD on HD -CAD -Atrial fibrillation -Dementia -Renal osteodystrophy -Colon Ca s/p resection Plan CTA results pending Vascular surgery input noted. For OR debridement. Zosyn/vancomycin day 3 renal dosing. HD per renal. Blood cx neg so far. ESR/CRP Off ASA/plavix currently. GI input if needs resumption of antiplatelets Protonix daily. Atenolol/statin DVTPPX heparin Dispo pending clinical improvement. Plan discussed with nursing, all questions answered.
--- NOTE | 2018-07-24 13:13 | PN ---
Physical Exam: SUBJECTIVE: Patient seen and examined. No acute events overnight. Offers no complaints. L foot unchanged. OBJECTIVE: Vital Signs Period Temp Pulse Resp BP Sys/Medina Pulse Ox Last 24 Hr 97.6 F-98.6 F 80-104 18-20 98-150/58-102 95 GENERAL: In No acute distress EYES: PERRL, conjunctiva clear. ENT:oropharynx clear without exudates, moist mucous membranes. NECK: supple. LUNGS: Breath sounds equal, clear to auscultation bilaterally HEART: Irregular rate and rhythm, S1, S2 without murmur, rub or gallop. ABDOMEN: Soft, nontender, nondistended, normoactive bowel sounds Reducible umbilical hernia noted. EXTREMITIES: 2+ radial pulses b/l, 1+ dorsalis pedis pulses b/l. 1+ pitting edema b/l lower extremities. NEUROLOGICAL: Cranial nerves II through XII grossly intact. Normal speech. SKIN: Dressing in place R heel wound.Dressing dry. Left first and second distal toes gangrenous. Laboratory Results - last 24 hr 07/23/18 07/23/18 07/24/18 13:00 13:00 08:00 WBC 7.8 RBC 2.79 L Hgb 9.1 L Hct 26.9 L D MCV 96.4 H MCH 32.5 MCHC 33.7 RDW 18.0 H Plt Count 122 L MPV 9.7 Sodium Potassium Chloride Carbon Dioxide Anion Gap BUN Creatinine Creat Clearance w eGFR Random Glucose Calcium Total Bilirubin AST ALT Alkaline Phosphatase Total Protein Albumin Random Vancomycin 10.2 L Hep C Ab Diagnostic <0.1 07/24/18 08:30 WBC RBC Hgb Hct MCV MCH MCHC RDW Plt Count MPV Sodium 139 Potassium 3.8 Chloride 100 Carbon Dioxide 28 Anion Gap 11 BUN 31 H Creatinine 4.5 H Creat Clearance w eGFR 12.67 Random Glucose 107 H Calcium 8.8 Total Bilirubin 0.4 AST 16 ALT 18 Alkaline Phosphatase 122 H Total Protein 5.8 L Albumin 2.6 L Random Vancomycin Hep C Ab Diagnostic Active Medications Generic Name Dose Route Start Last Admin Trade Name Freq PRN Reason Stop Dose Admin Atenolol 50 mg 07/23/18 10:00 07/24/18 10:06 Tenormin - PO 50 mg DAILY [facility] Administration Atorvastatin Calcium 10 mg 07/22/18 22:00 07/23/18 21:51 Lipitor - PO 10 mg HS M[facility]US Administration Heparin Sodium (Porcine) 5,000 unit 07/22/18 22:00 07/24/18 06:02 Heparin - SQ Not Given TID MARCUS Piperacillin Sod/Tazobactam 50 mls @ 100 mls/hr 07/23/18 18:00 07/24/18 10:06 Sod 2.25 gm/ Dextrose IVPB 100 mls/hr Q8H-IV [facility] Administration Protocol Melatonin 5 mg 07/23/18 18:59 07/23/18 21:51 Melatonin PO 5 mg HS PRN Administration INSOMNIA Pantoprazole Sodium 40 mg 07/22/18 18:45 07/24/18 10:04 Protonix Iv IVPUSH 40 mg DAILY [facility] Administration ASSESSMENT/PLAN: Patient is an 78 year old male with history of hypertension, Afib (currently not on anticoagulation), ESRD on HD Mon/Thu/Thu, colon CA s/p resection, renal osteodystrophy, peripheral arterial disease, dementia presents from [facility] with complaint of lower extremity wounds Bilateral lower extremity wounds -Left foot gangrenous first and second toes. Right foot wound overlying Achilles tendon. -Vancomycin, Zosyn (Day 3) -F/U ID consult (Dr. 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 Machado) appreciated. -HD -renally dose meds Afib -Patient is currently not on anticoagulation due to due to GI bleed on prior recent admission. Has been on Eliquis and Coumadin in the past. -Currently rate controlled Hypertension -Atenolol 50mg PO daily Hyperlipidema -Atorvastatin 10mg PO daily FEN -No IV fluids -Follow CMP -Sodium, renal controlled diet Prophylaxis -Heparin 5000u subq TID -Protonix 40mg IV daily Visit type - Emergency Visit Emergency Visit: Yes ED Registration Date: 07/22/18 Care time: The patient presented to the Emergency Department on the above date and was hospitalized for further evaluation of their emergent condition. - New Patient This patient is new to me today: Yes Date on this admission: 07/24/18 - Critical Care Critical Care patient: No
[2018-07-24] MEDS: MELATONIN 5 MG TABLETS PO PRN (22:28)
[2018-07-24] MEDS: ACETAMINOPHEN 325 MG TABLET (FP) PO PRN (22:28)
[2018-07-24] MEDS: ATORVASTATIN CA 10 MG TABLET (FP) PO SCH (22:28)
[2018-07-24] MEDS ORDERED: SODIUM CHLORIDE 250 ML IV PRN (22:41)
--- NOTE | 2018-07-24 22:46 | PN ---
Progress Note (short form) - Note Progress Note: covering dr stevenson Problems 78 year old gentleman with history of ESRD on HD (MWF), Hypertension, Colon Ca s/p resection, Afib, PVD non-healing lower leg wounds. #Non-healing LE wounds #ESRD on HD #Anemia #Renal Osteodystrophy Current Medications Acetaminophen (Tylenol -) 650 mg PO Q4H PRN PRN Reason: PAIN LEVEL 1-5 Last Admin: 07/24/18 22:28 Dose: 650 mg Atenolol (Tenormin -) 50 mg PO DAILY [facility] Last Admin: 07/24/18 10:06 Dose: 50 mg Atorvastatin Calcium (Lipitor -) 10 mg PO HS [facility] Last Admin: 07/24/18 22:28 Dose: 10 mg Heparin Sodium (Porcine) (Heparin -) 5,000 unit SQ TID [facility] Last Admin: 07/24/18 21:53 Dose: Not Given Piperacillin Sod/Tazobactam (Sod 2.25 gm/ Dextrose) 50 mls @ 100 mls/hr IVPB Q8H-IV [facility]; Protocol Last Admin: 07/24/18 17:25 Dose: 100 mls/hr Sodium Chloride (Normal Saline -) 250 mls @ 3,000 mls/hr IV PRN PRN PRN Reason: Hypotension during Dialysis Stop: 07/25/18 22:41 Melatonin (Melatonin) 5 mg PO HS PRN PRN Reason: INSOMNIA Last Admin: 07/24/18 22:28 Dose: 5 mg Pantoprazole Sodium (Protonix Iv) 40 mg IVPUSH DAILY [facility] Last Admin: 07/24/18 10:04 Dose: 40 mg Last Vital Signs Temp Pulse Resp BP Pulse Ox 97.7 F 95 H 18 128/72 98 07/24/18 22:30 07/24/18 22:30 07/24/18 22:30 07/24/18 22:30 07/24/18 09:00 CBC, BMP 07/24/18 08:00 07/24/18 08:30 IMP- esrd HD tomorrow For CTA of the Legs as per vascular recs will have dialysis as inpatient following CT scan Renal diet and 1.2L fluid restriction as an inpatient WIll continue TIW dialysis as an inpatient will give empiric Vanco with HD today if level < 20 vascular and ID follow up Trend phos levels
[2018-07-25] MEDS ORDERED: DEXTROSE 5%-WATER - 50 ML IVPB ONE ×3 (00:52→16:29)
[2018-07-25] MEDS ORDERED: PIPERACILLIN/TAZOBACTAM 2.25 GM VIAL IVPB ONE ×3 (00:52→16:29)
[2018-07-25] MEDS: ALPRAZolam 0.25 MG TABLET PO PRN ×2 (00:56→22:45)
[2018-07-25 02:09] LABS: HBSAG SCREEN Negative (Negative); HEP A AB, IGM Negative (Negative); HEP B CORE AB, TOT Positive (Negative)
[2018-07-25] MEDS: PIPERACILLIN/TAZOB 2.25 GM 2.25 GM in DEXTROSE 5%-WATER - 50 ML IVPB SCH ×3 (03:10→19:27)
[2018-07-25] MEDS: ACETAMINOPHEN 325 MG TABLET (FP) PO PRN ×2 (05:55→11:51)
[2018-07-25] MEDS: HEPARIN NA (PORCINE) 5,000 UNITS/ML 1ML VIAL SQ SCH ×2 (06:07→14:51)
[2018-07-25 08:08] LABS: BASO % 0.4 % (0-2.0); EOS % 0.9 % (0-4.5); HEMATOCRIT 28.1 % (35.4-49); HEMOGLOBIN 9.3 GM/dL (11.7-16.9); LYMPH % 9.6 % (8-40); MCH 32.3 pg (25.7-33.7); MCHC 33.2 g/dl (32.0-35.9); MEAN CELL VOLUME 97.2 fl (80-96); MEAN PLT VOLUME 9.8 fl (7.5-11.1); NEUT % 74.1 % (42.8-82.8); PLATELET COUNT 133 K/MM3 (134-434); RBC 2.89 M/mm3 (4.00-5.60); RDW 18.1 % (11.9-15.9); WHITE BLOOD COUNT 7.1 K/mm3 (4.0-10.0)
[2018-07-25 08:18] LABS: INR 1.41 (0.83-1.09); PROTHROMBIN TIME (PATIENT) 16.7 SEC (9.7-13.0)
[2018-07-25 08:20] LABS: ACTIVATED PTT 30.7 SECONDS (25.2-36.5)
[2018-07-25 08:50] LABS: ALBUMIN 2.5 g/dl (3.4-5.0); ALK PHOS 121 U/L (45-117); ANION GAP 11 MMOL/L (8-16); BILIRUBIN,TOTAL 0.4 mg/dL (0.2-1); BLOOD UREA NITROGEN 46 mg/dL (7-18); CALCIUM 8.7 mg/dL (8.5-10.1); CHLORIDE 97 mmol/L (98-107); CO2 29 mmol/L (21-32); CREATININE 5.7 mg/dL (0.55-1.3); GLUCOSE,RANDOM 131 mg/dL (74-106); MAGNESIUM 2.5 mg/dL (1.8-2.4); PHOSPHOROUS 5.4 mg/dL (2.5-4.9); POTASSIUM 3.8 mmol/L (3.5-5.1); SGOT/AST 21 U/L (15-37); SGPT/ALT 22 U/L (13-61); SODIUM 138 mmol/L (136-145); TOT PROT 5.8 g/dl (6.4-8.2)
[2018-07-25] MEDS: SEVELAMER CARBONATE 800 MG TAB (FP) PO SCH ×3 (08:58→16:51)
[2018-07-25] MEDS: PANTOPRAZOLE SODIUM 40 MG VIAL IVPUSH SCH (09:56)
[2018-07-25] MEDS: ESCITALOPRAM OXALATE 10 MG TABLET (FP) PO SCH (09:57)
[2018-07-25] MEDS: ATENOLOL 50 MG TABLET (FP) PO SCH (09:57)
[2018-07-25] MEDS: MEMANTINE HCL 5 MG TABLET (UD) PO SCH ×2 (09:57→22:46)
[2018-07-25] MEDS: oxyCODONE HCL 5 MG TABLET PO PRN ×2 (09:58→22:45)
--- NOTE | 2018-07-25 14:56 | PN ---
Physical Exam: SUBJECTIVE: Patient seen and examined, left foot pain overall unchanged. Asking for water, getting HD, no complaints otherwise. OBJECTIVE: Vital Signs Period Temp Pulse Resp BP Sys/Medina Pulse Ox Last 24 Hr 97.5 F-97.9 F 75-95 18-18 115-138/53-74 98 GENERAL: Awake, alert, and oriented to self, time but not to place, no acute distress HEAD: Normal with no signs of trauma. EYES: Pupils equal, round and reactive to light, extraocular movements intact, sclera anicteric, conjunctiva clear. No lid lag. EARS, NOSE, THROAT: Ears normal, nares patent, oropharynx clear without exudates. Moist mucous membranes. NECK: Soft, Supple, no JVD LUNGS: Breath sounds equal, clear to auscultation bilaterally. No wheezes, and no crackles. No accessory muscle use. HEART: S1S2 regular ABDOMEN: Soft, nontender, not distended, normoactive bowel sounds, no guarding, no rebound, no masses. UPPER EXTREMITIES: 2+ pulses, warm, well-perfused. No cyanosis. No clubbing. No peripheral edema. LOWER EXTREMITIES: Left foot, dry gangrene distal left great and left 2nd toe, swelling with erythema/tenderness more in distal great toe and whole of left second toe, skin scaling, unable to palpate left DP RLE - right foot toes with scaling, 3 cm oval ulcer with eschar left posterior ankle area with surround swelling erythema, dopplerable right DP pulse NEUROLOGICAL: facial symmetry, tongue midline, moves all extremities freely PSYCHIATRIC: Cooperative. Good eye contact. Appropriate mood and affect. SKIN: Warm, dry, normal turgor, no rashes or lesions noted, normal capillary refill. Laboratory Results - last 24 hr 07/23/18 07/25/18 07/25/18 13:00 06:30 06:30 WBC 7.1 RBC 2.89 L Hgb 9.3 L Hct 28.1 L MCV 97.2 H MCH 32.3 MCHC 33.2 RDW 18.1 H Plt Count 133 L MPV 9.8 Absolute Neuts (auto) 5.3 Neutrophils % 74.1 Lymphocytes % 9.6 D Monocytes % 15.0 H Eosinophils % 0.9 D Basophils % 0.4 Nucleated RBC % 0 PT with INR 16.70 H INR 1.41 H PTT (Actin FS) 30.7 Sodium Potassium Chloride Carbon Dioxide Anion Gap BUN Creatinine Creat Clearance w eGFR Random Glucose Calcium Phosphorus Magnesium Total Bilirubin AST ALT Alkaline Phosphatase Total Protein Albumin Hep A IgM Ab Confirm Negative Hepatitis A Ab Total Positive H Hep Bs Antigen Negative Hep Bs Antibody Reactive Hep B Core Total Ab Positive H 07/25/18 06:30 WBC RBC Hgb Hct MCV MCH MCHC RDW Plt Count MPV Absolute Neuts (auto) Neutrophils % Lymphocytes % Monocytes % Eosinophils % Basophils % Nucleated RBC % PT with INR INR PTT (Actin FS) Sodium 138 Potassium 3.8 Chloride 97 L Carbon Dioxide 29 Anion Gap 11 BUN 46 H Creatinine 5.7 H Creat Clearance w eGFR 9.65 Random Glucose 131 H Calcium 8.7 Phosphorus 5.4 H Magnesium 2.5 H Total Bilirubin 0.4 AST 21 ALT 22 Alkaline Phosphatase 121 H Total Protein 5.8 L Albumin 2.5 L Hep A IgM Ab Confirm Hepatitis A Ab Total Hep Bs Antigen Hep Bs Antibody Hep B Core Total Ab Active Medications Generic Name Dose Route Start Last Admin Trade Name Freq PRN Reason Stop Dose Admin Acetaminophen 650 mg 07/25/18 09:29 07/25/18 11:51 Tylenol - PO 650 mg Q6H PRN Administration PAIN LEVEL 1-5 Alprazolam 0.5 mg 07/25/18 00:12 07/25/18 00:56 Xanax - PO 0.5 mg BID PRN Administration ANXIETY Atenolol 50 mg 07/23/18 10:00 07/25/18 09:57 Tenormin - PO 50 mg DAILY [facility] Administration Atorvastatin Calcium 10 mg 07/22/18 22:00 07/24/18 22:28 Lipitor - PO 10 mg HS MARCUS Administration Escitalopram Oxalate 10 mg 07/25/18 10:00 07/25/18 09:57 Lexapro - PO 10 mg DAILY [facility] Administration Heparin Sodium (Porcine) 5,000 unit 07/22/18 22:00 07/25/18 06:07 Heparin - SQ Not Given TID M[facility]US Piperacillin Sod/Tazobactam 50 mls @ 100 mls/hr 07/23/18 18:00 07/25/18 09:58 Sod 2.25 gm/ Dextrose IVPB 100 mls/hr Q8H-IV [facility] Administration Protocol Sodium Chloride 250 mls @ 3,000 mls/hr 07/24/18 22:41 Normal Saline - IV 07/25/18 22:41 PRN PRN Hypotension during Dialysis Melatonin 5 mg 07/23/18 18:59 07/24/18 22:28 Melatonin PO 5 mg HS PRN Administration INSOMNIA Memantine 5 mg 07/25/18 10:00 07/25/18 09:57 Namenda - PO 5 mg BID [facility]US Administration Oxycodone HCl 10 mg 07/25/18 09:28 07/25/18 09:58 Roxicodone - PO 10 mg Q6H PRN Administration PAIN LEVEL 6-10 Pantoprazole Sodium 40 mg 07/22/18 18:45 07/25/18 09:56 Protonix Iv IVPUSH 40 mg DAILY [facility] Administration Sevelamer Carbonate 800 mg 07/25/18 08:00 07/25/18 08:58 Renvela - PO 800 mg TIDCM [facility] Administration Trazodone HCl 50 mg 07/25/18 22:00 Desyrel - PO HS [facility] Zolpidem Tartrate 5 mg 07/25/18 22:00 Ambien - PO HS PRN INSOMNIA Microbiology 07/22/18 15:00 Blood - Peripheral Venous Blood Culture - Preliminary NO GROWTH OBTAINED AFTER 48 HOURS, INCUBATION TO CONTINUE FOR 3 DAYS. 07/22/18 14:45 Blood - Peripheral Venous Blood Culture - Preliminary NO GROWTH OBTAINED AFTER 48 HOURS, INCUBATION TO CONTINUE FOR 3 DAYS. ASSESSMENT/PLAN: 78 yom with PMhx of CAD, ESRD on HD, severe PAD/Left foot ischemia 08/2016 s/p atherectomy/angioplasty on ASA/Plavix, afib, Dementia, Colon Ca s/p resection, renal osteodystrophy, recently admitted with severe anemia (6) s/p EGD with non bleeding gastric ulcer/Erosive duodenitis taken off ASA/plavix, sent in with bilateral lower extremity wounds. -left second toe ischema/gangrene +/- cellulitis -Right heel eschar with cellulitis -Severe PAD -Recent severe anemia/GIBleed off ASA/plavix -ESRD on HD -CAD -Atrial fibrillation -Dementia -Renal osteodystrophy -Colon Ca s/p resection Plan CTA results pending Vascular surgery input noted. For OR debridement. NPO after midnight Zosyn/vancomycin day 4 renal dosing. Vanco levels in AM. HD per renal. Blood cx neg so far. ESR/CRP Off ASA/plavix currently. GI input if needs resumption of antiplatelets Protonix daily. Atenolol/statin DVTPPX heparin Dispo pending clinical improvement. Plan discussed with nursing, all questions answered. Visit type - Emergency Visit Emergency Visit: Yes ED Registration Date: 07/22/18 Care time: The patient presented to the Emergency Department on the above date and was hospitalized for further evaluation of their emergent condition. - New Patient This patient is new to me today: No - Critical Care Critical Care patient: No - Discharge Referral Referred to [facility] Med P.C.: No
--- NOTE | 2018-07-25 19:35 | PN ---
Progress Note (short form) - Note Progress Note: covering dr stevenson Problems 78 year old gentleman with history of ESRD on HD (MWF), Hypertension, Colon Ca s/p resection, Afib, PVD non-healing lower leg wounds. #Non-healing LE wounds #ESRD on HD #Anemia #Renal Osteodystrophy Current Medications Acetaminophen (Tylenol -) 650 mg PO Q6H PRN PRN Reason: PAIN LEVEL 1-5 Last Admin: 07/25/18 11:51 Dose: 650 mg Alprazolam (Xanax -) 0.5 mg PO BID PRN PRN Reason: ANXIETY Last Admin: 07/25/18 00:56 Dose: 0.5 mg Atenolol (Tenormin -) 50 mg PO DAILY [facility] Last Admin: 07/25/18 09:57 Dose: 50 mg Atorvastatin Calcium (Lipitor -) 10 mg PO HS [facility] Last Admin: 07/24/18 22:28 Dose: 10 mg Escitalopram Oxalate (Lexapro -) 10 mg PO DAILY [facility] Last Admin: 07/25/18 09:57 Dose: 10 mg Heparin Sodium (Porcine) (Heparin -) 5,000 unit SQ TID [facility] Last Admin: 07/25/18 14:51 Dose: 5,000 unit Piperacillin Sod/Tazobactam (Sod 2.25 gm/ Dextrose) 50 mls @ 100 mls/hr IVPB Q8H-IV [facility]; Protocol Last Admin: 07/25/18 19:27 Dose: 100 mls/hr Sodium Chloride (Normal Saline -) 250 mls @ 3,000 mls/hr IV PRN PRN PRN Reason: Hypotension during Dialysis Stop: 07/25/18 22:41 Melatonin (Melatonin) 5 mg PO HS PRN PRN Reason: INSOMNIA Last Admin: 07/24/18 22:28 Dose: 5 mg Memantine (Namenda -) 5 mg PO BID [facility] Last Admin: 07/25/18 09:57 Dose: 5 mg Oxycodone HCl (Roxicodone -) 10 mg PO Q6H PRN PRN Reason: PAIN LEVEL 6-10 Last Admin: 07/25/18 09:58 Dose: 10 mg Pantoprazole Sodium (Protonix Iv) 40 mg IVPUSH DAILY [facility] Last Admin: 07/25/18 09:56 Dose: 40 mg Sevelamer Carbonate (Renvela -) 800 mg PO TIDCM [facility] Last Admin: 07/25/18 16:51 Dose: 800 mg Trazodone HCl (Desyrel -) 50 mg PO HS [facility] Zolpidem Tartrate (Ambien -) 5 mg PO HS PRN PRN Reason: INSOMNIA Last Vital Signs Temp Pulse Resp BP Pulse Ox 97.8 F 90 20 123/55 L 98 07/25/18 18:00 07/25/18 18:00 07/25/18 18:00 07/25/18 18:00 07/25/18 09:00 alert in nad seen while on dialysis Lungs clear Heart reg rate and rhythm Abd soft nontender ext no edema CBC, BMP 07/25/18 06:30 07/25/18 06:30 07/24/18 08:00 07/24/18 08:30 IMP- esrd stable on hd next hd on thursday
[2018-07-25] MEDS ORDERED: traZODone HCL 50 MG TABLET (FP) PO SCH (22:00)
[2018-07-25] MEDS ORDERED: ZOLPIDEM TARTRATE 5 MG TABLET PO PRN (22:00)
[2018-07-25] MEDS: ATORVASTATIN CA 10 MG TABLET (FP) PO SCH (22:46)
[2018-07-26] MEDS ORDERED: PIPERACILLIN/TAZOBACTAM 2.25 GM VIAL IVPB ONE ×3 (02:26→16:47)
[2018-07-26] MEDS ORDERED: DEXTROSE 5%-WATER - 50 ML IVPB ONE ×3 (02:26→16:47)
[2018-07-26] MEDS: PIPERACILLIN/TAZOB 2.25 GM 2.25 GM in DEXTROSE 5%-WATER - 50 ML IVPB SCH ×3 (02:30→17:36)
--- NOTE | 2018-07-26 08:09 | PN ---
Teaching Attending Note Name of Resident: Bladimir Staples ATTENDING PHYSICIAN STATEMENT I saw and evaluated the patient. I reviewed the resident's note and discussed the case with the resident. I agree with the resident's findings and plan as documented with exceptions below. SUBJECTIVE: Patient seen and examined. left foot pain, overall unchanged. OBJECTIVE: Vital Signs Period Temp Pulse Resp BP Sys/Medina Pulse Ox Last 24 Hr 97.5 F-98.1 F 75-94 18-20 105-138/46-74 98-98 Intake & Output 07/23/18 07/24/18 07/25/18 07/26/18 23:59 23:59 23:59 23:59 Intake Total 2301 016 0704 Balance 6194 046 6115 Weight 172 lb 3 oz General: lying in bed in no acute distress Extremities: left first and second toes unchanged findings, right achilis tendon eschar with surrounding swelling/erythema Active Medications Acetaminophen (Tylenol -) 650 mg PO Q6H PRN PRN Reason: PAIN LEVEL 1-5 Last Admin: 07/25/18 11:51 Dose: 650 mg Alprazolam (Xanax -) 0.5 mg PO BID PRN PRN Reason: ANXIETY Last Admin: 07/25/18 22:45 Dose: 0.5 mg Atenolol (Tenormin -) 50 mg PO DAILY [facility] Last Admin: 07/25/18 09:57 Dose: 50 mg Atorvastatin Calcium (Lipitor -) 10 mg PO HS [facility] Last Admin: 07/25/18 22:46 Dose: 10 mg Escitalopram Oxalate (Lexapro -) 10 mg PO DAILY [facility] Last Admin: 07/25/18 09:57 Dose: 10 mg Heparin Sodium (Porcine) (Heparin -) 5,000 unit SQ TID [facility] Last Admin: 07/25/18 14:51 Dose: 5,000 unit Piperacillin Sod/Tazobactam (Sod 2.25 gm/ Dextrose) 50 mls @ 100 mls/hr IVPB Q8H-IV [facility]; Protocol Last Admin: 07/26/18 02:30 Dose: 100 mls/hr Sodium Chloride (Normal Saline -) 250 mls @ 3,000 mls/hr IV PRN PRN PRN Reason: Hypotension during Dialysis Stop: 07/25/18 22:41 Melatonin (Melatonin) 5 mg PO HS PRN PRN Reason: INSOMNIA Last Admin: 07/24/18 22:28 Dose: 5 mg Memantine (Namenda -) 5 mg PO BID [facility] Last Admin: 07/25/18 22:46 Dose: 5 mg Oxycodone HCl (Roxicodone -) 10 mg PO Q6H PRN PRN Reason: PAIN LEVEL 6-10 Last Admin: 07/25/18 22:45 Dose: 10 mg Pantoprazole Sodium (Protonix Iv) 40 mg IVPUSH DAILY [facility] Last Admin: 07/25/18 09:56 Dose: 40 mg Sevelamer Carbonate (Renvela -) 800 mg PO TIDCM [facility] Last Admin: 07/25/18 16:51 Dose: 800 mg Trazodone HCl (Desyrel -) 50 mg PO HS [facility] Last Admin: 07/25/18 22:46 Dose: 50 mg Zolpidem Tartrate (Ambien -) 5 mg PO HS PRN PRN Reason: INSOMNIA Last Admin: 07/25/18 22:46 Dose: 5 mg Laboratory Results - last 24 hr 07/26/18 07:15 Random Vancomycin 11.1 L Microbiology 07/22/18 15:00 Blood - Peripheral Venous Blood Culture - Preliminary NO GROWTH OBTAINED AFTER 72 HOURS, INCUBATION TO CONTINUE FOR 2 DAYS. 07/22/18 14:45 Blood - Peripheral Venous Blood Culture - Preliminary NO GROWTH OBTAINED AFTER 72 HOURS, INCUBATION TO CONTINUE FOR 2 DAYS. ASSESSMENT AND PLAN: 78 yom with PMhx of CAD, ESRD on HD, severe PAD/Left foot ischemia 08/2016 s/p atherectomy/angioplasty on ASA/Plavix, afib, Dementia, Colon Ca s/p resection, renal osteodystrophy, recently admitted with severe anemia (6) s/p EGD with non bleeding gastric ulcer/Erosive duodenitis taken off ASA/plavix, sent in with bilateral lower extremity wounds. -left second toe ischema/gangrene +/- cellulitis -Right heel eschar with cellulitis -Severe PAD -Recent severe anemia/GIBleed off ASA/plavix -ESRD on HD -CAD -Atrial fibrillation -Dementia -Renal osteodystrophy -Colon Ca s/p resection Plan s/p Right achilies tendon eschar debridement today CT results noted. Follow up with vascular surgery for additional intervention. Vanco levels noted, addition 1 g IV today Zosyn/vancomycin day 5. HD per renal. Blood cx neg so far. ESR/CRP Off ASA/plavix currently. GI input if needs resumption of antiplatelets Protonix daily. Atenolol/statin DVTPPX heparin Dispo pending clinical improvement. PT xiao. Plan discussed with nursing, all questions answered.
--- NOTE | 2018-07-26 08:10 | PN ---
Physical Exam: SUBJECTIVE: Patient seen and examined at bedside this morning. Patient endorses pain at right heel. Denies fevers, chills, shortness of breath, chest pain, palpitations, abdominal pain, nausea, vomiting. Patient is for debridement with Dr. Martines today. OBJECTIVE: Vital Signs Period Temp Pulse Resp BP Sys/[place]ina Pulse Ox Last 24 Hr 97.5 F-98.1 F 75-94 18-20 105-138/46-74 98-98 GENERAL: The patient is awake, alert, and fully oriented, in no acute distress. HEAD: Normal with no signs of trauma. EYES: PERRL, extraocular movements intact, sclera anicteric, conjunctiva clear. ENT: Ears normal, nares patent, oropharynx clear without exudates, moist mucous membranes. NECK: Trachea midline, full range of motion, supple. LUNGS: Breath sounds equal, clear to auscultation bilaterally, no wheezes, no crackles, no accessory muscle use. HEART: Irregular rate and rhythm, S1, S2 without murmur, rub or gallop. ABDOMEN: Soft, nontender, nondistended, normoactive bowel sounds, no guarding, no rebound, no hepatosplenomegaly. Reducible umbilical hernia noted. EXTREMITIES: 2+ radial pulses b/l, 1+ dorsalis pedis pulses b/l. 1+ pitting edema b/l lower extremities. NEUROLOGICAL: Cranial nerves II through XII grossly intact. Normal speech. PSYCH: Normal mood, normal affect upon my encounter today. SKIN: Right heel wound overlying Achilles tendon with granuloma. Bandage in place, clean, dry. Nondraining, tender to palpation. Left first and second distal toes gangrenous. Sensation intact until area of gangrenous toes, and right heel wound. Laboratory Results - last 24 hr 07/25/18 07/25/18 07/25/18 06:30 06:30 06:30 WBC 7.1 RBC 2.89 L Hgb 9.3 L Hct 28.1 L MCV 97.2 H MCH 32.3 MCHC 33.2 RDW 18.1 H Plt Count 133 L MPV 9.8 Absolute Neuts (auto) 5.3 Neutrophils % 74.1 Lymphocytes % 9.6 D Monocytes % 15.0 H Eosinophils % 0.9 D Basophils % 0.4 Nucleated RBC % 0 PT with INR 16.70 H INR 1.41 H PTT (Actin FS) 30.7 Sodium 138 Potassium 3.8 Chloride 97 L Carbon Dioxide 29 Anion Gap 11 BUN 46 H Creatinine 5.7 H Creat Clearance w eGFR 9.65 Random Glucose 131 H Calcium 8.7 Phosphorus 5.4 H Magnesium 2.5 H Total Bilirubin 0.4 AST 21 ALT 22 Alkaline Phosphatase 121 H Total Protein 5.8 L Albumin 2.5 L Active Medications Generic Name Dose Route Start Last Admin Trade Name Freq PRN Reason Stop Dose Admin Acetaminophen 650 mg 07/25/18 09:29 07/25/18 11:51 Tylenol - PO 650 mg Q6H PRN Administration PAIN LEVEL 1-5 Alprazolam 0.5 mg 07/25/18 00:12 07/25/18 22:45 Xanax - PO 0.5 mg BID PRN Administration ANXIETY Atenolol 50 mg 07/23/18 10:00 07/25/18 09:57 Tenormin - PO 50 mg DAILY [facility] Administration Atorvastatin Calcium 10 mg 07/22/18 22:00 07/25/18 22:46 Lipitor - PO 10 mg HS [facility] Administration Escitalopram Oxalate 10 mg 07/25/18 10:00 07/25/18 09:57 Lexapro - PO 10 mg DAILY [facility] Administration Heparin Sodium (Porcine) 5,000 unit 07/22/18 22:00 07/25/18 14:51 Heparin - SQ 5,000 unit TID [facility] Administration Piperacillin Sod/Tazobactam 50 mls @ 100 mls/hr 07/23/18 18:00 07/26/18 02:30 Sod 2.25 gm/ Dextrose IVPB 100 mls/hr Q8H-IV [facility] Administration Protocol Sodium Chloride 250 mls @ 3,000 mls/hr 07/24/18 22:41 Normal Saline - IV 07/25/18 22:41 PRN PRN Hypotension during Dialysis Melatonin 5 mg 07/23/18 18:59 07/24/18 22:28 Melatonin PO 5 mg HS PRN Administration INSOMNIA Memantine 5 mg 07/25/18 10:00 07/25/18 22:46 Namenda - PO 5 mg BID [facility] Administration Oxycodone HCl 10 mg 07/25/18 09:28 07/25/18 22:45 Roxicodone - PO 10 mg Q6H PRN Administration PAIN LEVEL 6-10 Pantoprazole Sodium 40 mg 07/22/18 18:45 07/25/18 09:56 Protonix Iv IVPUSH 40 mg DAILY [facility] Administration Sevelamer Carbonate 800 mg 07/25/18 08:00 07/25/18 16:51 Renvela - PO 800 mg TIDCM [facility] Administration Trazodone HCl 50 mg 07/25/18 22:00 07/25/18 22:46 Desyrel - PO 50 mg HS [facility] Administration Zolpidem Tartrate 5 mg 07/25/18 22:00 07/25/18 22:46 Ambien - PO 5 mg HS PRN Administration INSOMNIA ASSESSMENT/PLAN: Patient is an 78 year old male with history of hypertension, Afib (currently not on anticoagulation), ESRD on HD, colon CA s/p resection, renal osteodystrophy, peripheral arterial disease, dementia presents from [facility] with complaint of lower extremity wounds Bilateral lower extremity wounds -Left foot gangrenous first and second toes. Right foot wound overlying Achilles tendon. -Zosyn 2.25 grams Q8H, Vancomycin 1 gram IV today -F/U ID consult (Dr. Scott) -CTA lower extremities results noted. -Patient for right lower extremity debridement today. F/U post-operative vascular surgery recommendations ESRD on HD -Nephrology consult (Dr. Machado) appreciated. -Patient for next HD on Thursday Afib -Patient is currently not on anticoagulation due to due to GI bleed on prior recent admission. Has been on Eliquis and Coumadin in the past. -Currently rate controlled Hypertension -Atenolol 50mg PO daily Hyperlipidema -Atorvastatin 10mg PO daily Anxiety -Lexapro 10mg PO daily -Xanax 0.5mg PO BID PRN Dementia -Memantine 5mg PO BID -Renvela 800mg PP TID Insomnia -Trazodone 50mg PO QHS -Zolpidem 5mg PO HS PRN FEN -No IV fluids -Follow CMP -Sodium, renal controlled diet Prophylaxis -Heparin 5000u subq TID -Protonix 40mg IV daily Disposition: Continue care in medical surgical floor. Patient for right lower extremity debridiment today. Visit type - Emergency Visit Emergency Visit: Yes ED Registration Date: 07/22/18 Care time: The patient presented to the Emergency Department on the above date and was hospitalized for further evaluation of their emergent condition. - New Patient This patient is new to me today: No - Critical Care Critical Care patient: No - Discharge Referral Referred to [facility] Med [facility] No
[2018-07-26] MEDS: SEVELAMER CARBONATE 800 MG TAB (FP) PO SCH ×4 (08:34→16:53)
[2018-07-26] MEDS: PANTOPRAZOLE SODIUM 40 MG VIAL IVPUSH SCH (09:34)
[2018-07-26] MEDS: ESCITALOPRAM OXALATE 10 MG TABLET (FP) PO SCH (09:34)
[2018-07-26] MEDS: ATENOLOL 50 MG TABLET (FP) PO SCH (09:35)
[2018-07-26] MEDS: MEMANTINE HCL 5 MG TABLET (UD) PO SCH ×2 (09:35→21:51)
[2018-07-26] MEDS: oxyCODONE HCL 5 MG TABLET PO PRN ×3 (09:36→22:30)
[2018-07-26] MEDS: ACETAMINOPHEN 325 MG TABLET (FP) PO PRN ×2 (09:36→17:43)
[2018-07-26] MEDS ORDERED: MIDAZOLAM HCL 2 MG/2 ML SINGLE DOSE VIAL ONE (10:34)
[2018-07-26] MEDS ORDERED: SUCCINYLCHOLINE CHLORIDE 200 MG/10 ML VIAL ONE (10:34)
[2018-07-26] MEDS ORDERED: PROPOFOL 20 ML ONE (10:34)
[2018-07-26] MEDS ORDERED: PROMETHAZINE HCL 25 MG/1 ML VIAL IVPUSH PRN ×2 (10:55→11:41)
[2018-07-26] MEDS ORDERED: ONDANSETRON 4 MG/2 ML VIAL IVPUSH PRN ×2 (10:55→11:41)
[2018-07-26] MEDS ORDERED: ePHEDrine SULFATE 50 MG/1 ML AMPULE ONE (10:55)
[2018-07-26] MEDS ORDERED: oxyCODONE HCL 5 MG TABLET PO PRN ×2 (10:55→11:41)
[2018-07-26] MEDS ORDERED: BUPIVACAINE HCL/PF 0.5% (5MG/ML) 10 ML VIAL IJ ONE ×2 (10:59)
[2018-07-26] MEDS ORDERED: LACTATED RINGERS SOLUTION 1,000 ML IV SCH (11:00)
--- NOTE | 2018-07-26 11:28 | OP ---
Operative Note - Note: Operative Date: 07/26/18 Pre-Operative Diagnosis: Necrotic wound of right posterior calf. Operation: Excsional debridement of skin, tendon right calf. Findings: Necrotic eschar and tendon right posterior heel and calf. Post-Operative Diagnosis: Same as Pre-op Surgeon: Espinoza Martinez Anesthesiologist/CASE MAKING MACHINE OPERATOR: Darwin Morales Anesthesia: Fractional Specimens Removed: Skin and tendon
[2018-07-26] MEDS ORDERED: SODIUM CHLORIDE 250 ML IV PRN (11:41)
[2018-07-26] MEDS ORDERED: VANCOMYCIN 1 GRAM (PRE-DOCKED) 1,000 MG/250 ML BAG IVPB ONE (11:41)
[2018-07-26] MEDS ORDERED: MELATONIN 5 MG TABLETS PO PRN (11:41)
--- NOTE | 2018-07-26 12:36 | OP ---
DATE OF OPERATION: 07/26/2018 SURGEON: Espinoza Kam MD PROCEDURE: Excisional debridement of skin and tendon from the right lower calf and heel. PREOPERATIVE DIAGNOSIS: Necrotic wound of right lower calf. POSTOPERATIVE DIAGNOSIS: Necrotic wound of right lower calf. ANESTHESIA: Fractional. ANESTHESIOLOGIST: Andrew OPERATIVE FINDINGS: There was necrotic eschar overlying necrotic Achilles tendon extending down to the heel of the right lower calf. OPERATIVE PROCEDURE: Following routine patient identification with side and site verification, intravenous sedation was established. The patient was placed in the left lateral decubitus position with appropriate padding. The right lower extremity and foot were prepped with Betadine solution. A time-out was performed. Then 0.5% Marcaine was infiltrated around the wound. Excision of the wound edges was performed with a 15 scalpel into the subcutaneous plane and extended down to the Achilles tendon, which was necrotic. All necrotic tissue was debrided sharply, and the wound was further debrided with a curette. There was very little bleeding seen. The wound was irrigated with saline and dressed with moist saline covered with Xeroform, dry gauze, Kerlix wrap, and the patient was taken to the recovery room in stable condition. ESPINOZA KAM M.D. [id number]
[2018-07-26] MEDS ORDERED: GLYCOPYRROLATE 0.2 MG/1 ML VIAL ONE ×2 (13:30→13:31)
[2018-07-26] MEDS ORDERED: NEOSTIGMINE METHYLSULFATE 0.5 MG/ML - 10 ML MDV ONE (13:30)
[2018-07-26] MEDS: LACTATED RINGERS SOLUTION 1,000 ML IV SCH (13:53)
[2018-07-26] MEDS: HEPARIN NA (PORCINE) 5,000 UNITS/ML 1ML VIAL SQ SCH ×2 (14:35→21:52)
--- NOTE | 2018-07-26 16:22 | SPA.PREOP ---
- PRE-OP NOTE Dx: Chronic PAD Planned Procedure: LLE Angiogram, possible angioplasty, possible stenting Date of Surgery: 07/28/18 Surgeon: Espinoza Martinez Last Vital Signs Temp Pulse Resp BP Pulse Ox 97.3 F L 100 H 18 106/51 L 100 07/26/18 15:41 07/26/18 15:41 07/26/18 15:41 07/26/18 15:41 07/26/18 12:05 Lab Results WBC 7.1 K/mm3 (4.0-10.0) 07/25/18 06:30 RBC 2.89 M/mm3 (4.00-5.60) L 07/25/18 06:30 Hgb 9.3 GM/dL (11.7-16.9) L 07/25/18 06:30 Hct 28.1 % (35.4-49) L 07/25/18 06:30 MCV 97.2 fl (80-96) H 07/25/18 06:30 MCHC 33.2 g/dl (32.0-35.9) 07/25/18 06:30 RDW 18.1 % (11.9-15.9) H 07/25/18 06:30 Plt Count 133 K/MM3 (134-434) L 07/25/18 06:30 Sodium 138 mmol/L (136-145) 07/25/18 06:30 Potassium 3.8 mmol/L (3.5-5.1) 07/25/18 06:30 Chloride 97 mmol/L (98-107) L 07/25/18 06:30 Carbon Dioxide 29 mmol/L (21-32) 07/25/18 06:30 Anion Gap 11 MMOL/L (8-16) 07/25/18 06:30 BUN 46 mg/dL (7-18) H 07/25/18 06:30 Creatinine 5.7 mg/dL (0.55-1.3) H 07/25/18 06:30 Random Glucose 131 mg/dL (74-106) H 07/25/18 06:30 Calcium 8.7 mg/dL (8.5-10.1) 07/25/18 06:30 INR 1.41 (0.83-1.09) H 07/25/18 06:30 - ASSESSMENT/PLAN 1. Make NPO after midnight except po meds 07/28/18 2. GI/DVT PPX 3. Medical optimization / clearance 4. Consent to be obtained by surgeon after risks, benefits and alternatives discussed with patient and or Health Care Proxy. Visit type - Case Type Case Type: ED Admission
--- NOTE | 2018-07-26 18:22 | PN ---
Progress Note (short form) - Note Progress Note: covering dr stevenson Problems 78 year old gentleman with history of ESRD on HD (MWF), Hypertension, Colon Ca s/p resection, Afib, PVD non-healing lower leg wounds. Non-healing LE wounds ESRD on HD Anemia Renal Osteodystrophy Current Medications Acetaminophen (Tylenol -) 650 mg PO Q6H PRN PRN Reason: PAIN LEVEL 1-5 Last Admin: 07/26/18 17:43 Dose: 650 mg Alprazolam (Xanax -) 0.5 mg PO BID PRN PRN Reason: ANXIETY Atenolol (Tenormin -) 50 mg PO DAILY [facility] Atorvastatin Calcium (Lipitor -) 10 mg PO HS [facility] Collagenase (Santyl -) 1 applic TP DAILY [facility]; Protocol Escitalopram Oxalate (Lexapro -) 10 mg PO DAILY [facility] Fentanyl (Sublimaze Injection -) 50 mcg IVPUSH [id number] PRN PRN Reason: PAIN-PACU ORDER X 4 DOSES ONLY Heparin Sodium (Porcine) (Heparin -) 5,000 unit SQ TID [facility] Last Admin: 07/26/18 14:35 Dose: 5,000 unit Sodium Chloride (Normal Saline -) 250 mls @ 3,000 mls/hr IV PRN PRN PRN Reason: Hypotension during Dialysis Lactated Ringer's (Lactated Ringers Solution) 1,000 mls @ 75 mls/hr IV ASDIR [facility] Last Admin: 07/26/18 13:53 Dose: Not Given Piperacillin Sod/Tazobactam (Sod 2.25 gm/ Dextrose) 50 mls @ 100 mls/hr IVPB Q8H-IV [facility]; Protocol Last Admin: 07/26/18 17:36 Dose: 100 mls/hr Melatonin (Melatonin) 5 mg PO HS PRN PRN Reason: INSOMNIA Memantine (Namenda -) 5 mg PO BID [facility] Ondansetron HCl (Zofran Injection) 4 mg IVPUSH Q6H PRN PRN Reason: NAUSEA AND/OR VOMITING Oxycodone HCl (Roxicodone -) 10 mg PO Q4H PRN PRN Reason: PAIN LEVEL 6-10 Stop: 07/27/18 10:54 Last Admin: 07/26/18 17:42 Dose: 10 mg Pantoprazole Sodium (Protonix Iv) 40 mg IVPUSH DAILY [facility] Promethazine HCl (Phenergan Injection -) 12.5 mg IVPUSH Q6H PRN PRN Reason: NAUSEA-FOR RESCUE AFTER 15 MIN Sevelamer Carbonate (Renvela -) 800 mg PO TIDCM [facility] Last Admin: 07/26/18 16:53 Dose: 800 mg Trazodone HCl (Desyrel -) 50 mg PO HS [facility] Zolpidem Tartrate (Ambien -) 5 mg PO HS PRN PRN Reason: INSOMNIA Last Vital Signs Temp Pulse Resp BP Pulse Ox 97.3 F L 100 H 18 106/51 L 100 07/26/18 15:41 07/26/18 15:41 07/26/18 15:41 07/26/18 15:41 07/26/18 12:05 S in nad O- lungs clear Heart reg Abd soft nontender Ext no edema CBC, BMP 07/25/18 06:30 07/25/18 06:30 IMP- esrd stable on hd PVD next hd on thursday
[2018-07-26] MEDS: traZODone HCL 50 MG TABLET (FP) PO SCH (21:51)
[2018-07-26] MEDS: ZOLPIDEM TARTRATE 5 MG TABLET PO PRN (21:52)
[2018-07-26] MEDS: ATORVASTATIN CA 10 MG TABLET (FP) PO SCH (21:52)
[2018-07-26] MEDS: ALPRAZolam 0.25 MG TABLET PO PRN (21:53)
[2018-07-27] MEDS ORDERED: PIPERACILLIN/TAZOBACTAM 2.25 GM VIAL IVPB ONE ×3 (00:04→17:23)
[2018-07-27] MEDS ORDERED: DEXTROSE 5%-WATER - 50 ML IVPB ONE ×3 (00:04→17:23)
[2018-07-27] MEDS: PIPERACILLIN/TAZOB 2.25 GM 2.25 GM in DEXTROSE 5%-WATER - 50 ML IVPB SCH ×3 (01:52→17:51)
[2018-07-27] MEDS: HEPARIN NA (PORCINE) 5,000 UNITS/ML 1ML VIAL SQ SCH ×3 (06:38→21:03)
[2018-07-27] MEDS: oxyCODONE HCL 5 MG TABLET PO PRN (06:40)
[2018-07-27 07:34] LABS: HEMATOCRIT 32.4 % (35.4-49); HEMOGLOBIN 9.9 GM/dL (11.7-16.9); MCHC 30.6 g/dl (32.0-35.9); MEAN CELL VOLUME 98.1 fl (80-96); MEAN PLT VOLUME 10.1 fl (7.5-11.1); PLATELET COUNT 126 K/MM3 (134-434); RDW 17.8 % (11.9-15.9); WHITE BLOOD COUNT 7.8 K/mm3 (4.0-10.0)
[2018-07-27 08:00] LABS: ALBUMIN 2.7 g/dl (3.4-5.0); ALK PHOS 113 U/L (45-117); ANION GAP 12 MMOL/L (8-16); BILIRUBIN,TOTAL 0.4 mg/dL (0.2-1); BLOOD UREA NITROGEN 43 mg/dL (7-18); CALCIUM 9.1 mg/dL (8.5-10.1); CHLORIDE 97 mmol/L (98-107); CO2 28 mmol/L (21-32); CREATININE 5.1 mg/dL (0.55-1.3); GLUCOSE,RANDOM 97 mg/dL (74-106); POTASSIUM 3.9 mmol/L (3.5-5.1); SGOT/AST 22 U/L (15-37); SGPT/ALT 24 U/L (13-61); SODIUM 137 mmol/L (136-145); TOT PROT 6.1 g/dl (6.4-8.2)
--- NOTE | 2018-07-27 08:51 | PN ---
Progress Note (short form) - Note Progress Note: ANESTHESIOLOGY POST-OP CHECK 78M s/p right calf debridement under general anesthesia, POD #1. No acute complaints. Denies N/V. Sitting up eating breakfast. Pain 8/10, no pain meds yet this AM. Vital Signs Temperature 97.6 F 07/26/18 22:21 Pulse Rate 89 07/27/18 02:41 Respiratory Rate 18 07/27/18 02:41 Blood Pressure 118/48 L 07/27/18 02:41 O2 Sat by Pulse Oximetry (%) 100 07/26/18 21:00 Active Medications Acetaminophen (Tylenol -) 650 mg PO Q6H PRN PRN Reason: PAIN LEVEL 1-5 Last Admin: 07/26/18 17:43 Dose: 650 mg Alprazolam (Xanax -) 0.5 mg PO BID PRN PRN Reason: ANXIETY Last Admin: 07/26/18 21:53 Dose: 0.5 mg Atenolol (Tenormin -) 50 mg PO DAILY [facility] Atorvastatin Calcium (Lipitor -) 10 mg PO HS [facility] Last Admin: 07/26/18 21:52 Dose: 10 mg Collagenase (Santyl -) 1 applic TP DAILY [facility]; Protocol Escitalopram Oxalate (Lexapro -) 10 mg PO DAILY [facility] Fentanyl (Sublimaze Injection -) 50 mcg IVPUSH [id number] PRN PRN Reason: PAIN-PACU ORDER X 4 DOSES ONLY Heparin Sodium (Porcine) (Heparin -) 5,000 unit SQ TID [facility] Last Admin: 07/27/18 06:38 Dose: 5,000 unit Sodium Chloride (Normal Saline -) 250 mls @ 3,000 mls/hr IV PRN PRN PRN Reason: Hypotension during Dialysis Lactated Ringer's (Lactated Ringers Solution) 1,000 mls @ 75 mls/hr IV ASDIR [facility] Last Admin: 07/26/18 13:53 Dose: Not Given Piperacillin Sod/Tazobactam (Sod 2.25 gm/ Dextrose) 50 mls @ 100 mls/hr IVPB Q8H-IV [facility]; Protocol Last Admin: 07/27/18 01:52 Dose: 100 mls/hr Melatonin (Melatonin) 5 mg PO HS PRN PRN Reason: INSOMNIA Memantine (Namenda -) 5 mg PO BID [facility] Last Admin: 07/26/18 21:51 Dose: 5 mg Ondansetron HCl (Zofran Injection) 4 mg IVPUSH Q6H PRN PRN Reason: NAUSEA AND/OR VOMITING Oxycodone HCl (Roxicodone -) 10 mg PO Q4H PRN PRN Reason: PAIN LEVEL 6-10 Stop: 07/27/18 10:54 Last Admin: 07/27/18 06:40 Dose: 10 mg Pantoprazole Sodium (Protonix Iv) 40 mg IVPUSH DAILY [facility] Promethazine HCl (Phenergan Injection -) 12.5 mg IVPUSH Q6H PRN PRN Reason: NAUSEA-FOR RESCUE AFTER 15 MIN Sevelamer Carbonate (Renvela -) 800 mg PO TIDCM [facility] Last Admin: 07/26/18 16:53 Dose: 800 mg Trazodone HCl (Desyrel -) 50 mg PO HS [facility] Last Admin: 07/26/18 21:51 Dose: 50 mg Zolpidem Tartrate (Ambien -) 5 mg PO HS PRN PRN Reason: INSOMNIA Last Admin: 07/26/18 21:52 Dose: 5 mg Gen: awake, alert, NAD No apparent anesthesia complications. Pt instructed he must request pain meds as needed. Continue management as per primary team.
[2018-07-27] MEDS: MEMANTINE HCL 5 MG TABLET (UD) PO SCH ×2 (09:34→21:04)
[2018-07-27] MEDS: PANTOPRAZOLE SODIUM 40 MG VIAL IVPUSH SCH (09:34)
[2018-07-27] MEDS: ESCITALOPRAM OXALATE 10 MG TABLET (FP) PO SCH (09:34)
[2018-07-27] MEDS: SEVELAMER CARBONATE 800 MG TAB (FP) PO SCH ×3 (09:34→17:51)
[2018-07-27] MEDS: ATENOLOL 50 MG TABLET (FP) PO SCH (09:34)
[2018-07-27] MEDS: COLLAGENASE CLOSTRIDIUM HIST. 30 GRAMS TUBE TP SCH (09:35)
[2018-07-27] MEDS: ACETAMINOPHEN 325 MG TABLET (FP) PO PRN ×3 (09:42→21:04)
--- NOTE | 2018-07-27 12:58 | PN ---
Progress Note, Physician History of Present Illness: 78 yom with PMhx of CAD, ESRD on HD, severe PAD/Left foot ischemia 08/2016 s/p atherectomy/angioplasty on ASA/Plavix, afib, Dementia, Colon Ca s/p resection, renal osteodystrophy, recently admitted with severe anemia (6) s/p EGD with non bleeding gastric ulcer/Erosive duodenitis taken off ASA/plavix, sent in with bilateral lower extremity wounds. - Current Medication List Current Medications: Active Medications Acetaminophen (Tylenol -) 650 mg PO Q6H PRN PRN Reason: PAIN LEVEL 1-5 Last Admin: 07/27/18 09:42 Dose: 650 mg Alprazolam (Xanax -) 0.5 mg PO BID PRN PRN Reason: ANXIETY Last Admin: 07/26/18 21:53 Dose: 0.5 mg Atenolol (Tenormin -) 50 mg PO DAILY [facility] Last Admin: 07/27/18 09:34 Dose: 50 mg Atorvastatin Calcium (Lipitor -) 10 mg PO HS [facility] Last Admin: 07/26/18 21:52 Dose: 10 mg Collagenase (Santyl -) 1 applic TP DAILY [facility]; Protocol Last Admin: 07/27/18 09:35 Dose: Not Given Escitalopram Oxalate (Lexapro -) 10 mg PO DAILY [facility] Last Admin: 07/27/18 09:34 Dose: 10 mg Fentanyl (Sublimaze Injection -) 50 mcg IVPUSH [id number] PRN PRN Reason: PAIN-PACU ORDER X 4 DOSES ONLY Heparin Sodium (Porcine) (Heparin -) 5,000 unit SQ TID [facility] Last Admin: 07/27/18 06:38 Dose: 5,000 unit Sodium Chloride (Normal Saline -) 250 mls @ 3,000 mls/hr IV PRN PRN PRN Reason: Hypotension during Dialysis Lactated Ringer's (Lactated Ringers Solution) 1,000 mls @ 75 mls/hr IV ASDIR [facility] Last Admin: 07/26/18 13:53 Dose: Not Given Piperacillin Sod/Tazobactam (Sod 2.25 gm/ Dextrose) 50 mls @ 100 mls/hr IVPB Q8H-IV [facility]; Protocol Last Admin: 07/27/18 09:34 Dose: 100 mls/hr Melatonin (Melatonin) 5 mg PO HS PRN PRN Reason: INSOMNIA Memantine (Namenda -) 5 mg PO BID [facility] Last Admin: 07/27/18 09:34 Dose: 5 mg Ondansetron HCl (Zofran Injection) 4 mg IVPUSH Q6H PRN PRN Reason: NAUSEA AND/OR VOMITING Pantoprazole Sodium (Protonix Iv) 40 mg IVPUSH DAILY [facility] Last Admin: 07/27/18 09:34 Dose: 40 mg Promethazine HCl (Phenergan Injection -) 12.5 mg IVPUSH Q6H PRN PRN Reason: NAUSEA-FOR RESCUE AFTER 15 MIN Sevelamer Carbonate (Renvela -) 800 mg PO TIDCM [facility] Last Admin: 07/27/18 09:34 Dose: 800 mg Trazodone HCl (Desyrel -) 50 mg PO HS [facility] Last Admin: 07/26/18 21:51 Dose: 50 mg Zolpidem Tartrate (Ambien -) 5 mg PO HS PRN PRN Reason: INSOMNIA Last Admin: 07/26/18 21:52 Dose: 5 mg - Objective Vital Signs: Vital Signs Temperature 98.2 F 07/27/18 09:48 Pulse Rate 86 07/27/18 09:48 Respiratory Rate 16 07/27/18 09:48 Blood Pressure 111/60 07/27/18 09:48 O2 Sat by Pulse Oximetry (%) 100 07/27/18 09:00 Constitutional: Yes: Well Nourished, No Distress, Calm Eyes: Yes: WNL, Conjunctiva Clear, EOM Intact HENT: Yes: WNL, Atraumatic, Normocephalic Neck: Yes: WNL, Supple, Trachea Midline Cardiovascular: Yes: WNL, Regular Rate and Rhythm Respiratory: Yes: WNL, Regular, CTA Bilaterally Gastrointestinal: Yes: WNL, Normal Bowel Sounds, Soft ...Rectal Exam: Yes: Deferred Musculoskeletal: Yes: WNL (healing ulcer on the lower ext) Labs: CBC, BMP 07/27/18 06:45 07/27/18 06:45 INR, PTT INR 1.41 (0.83-1.09) H 07/25/18 06:30 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 Code(s): I70.269 - ATHSCL NULATO ARTERIES OF EXTRM W GANGRENE, UNSP EXTREMITY (2) ESRD (end stage renal disease) Code(s): N18.6 - END STAGE RENAL DISEASE (3) Peripheral arterial disease Code(s): I73.9 - PERIPHERAL VASCULAR DISEASE, UNSPECIFIED (4) Acute upper GI bleed Code(s): K92.2 - GASTROINTESTINAL HEMORRHAGE, UNSPECIFIED (5) Anemia Code(s): D64.9 - ANEMIA, UNSPECIFIED Qualifiers: Anemia type: other cause Other causes of anemia: acute posthemorrhagic Qualified Code(s): D62 - Acute posthemorrhagic anemia (6) ESRD needing dialysis Code(s): N18.6 - END STAGE RENAL DISEASE; Z99.2 - DEPENDENCE ON RENAL DIALYSIS (7) HTN (hypertension) Code(s): I10 - ESSENTIAL (PRIMARY) HYPERTENSION Assessment/Plan -left second toe ischema/gangrene +/- cellulitis - s/p Rt acillies tendon eschar debridement - Vanco levels noted, addition 1 g IV today - Zosyn/vancomycin day 6. - Blood cx neg so far. - ESR/CRP -Severe PAD - see vascular surgery recommendation -Recent severe anemia/GIBleed off ASA/plavix - Off ASA/plavix currently. GI input if needs resumption of antiplatelets -ESRD on HD - HD per renal. -CAD - asa and clopidogrel is on hold -Atrial fibrillation: - on hold - rate control with atenolol Dyslipidemia: - c/w statin -Dementia -Renal osteodystrophy -Colon Ca s/p resection DVTPPX heparin Dispo pending clinical improvement. PT eval. Plan discussed with nursing, all questions answered.
[2018-07-27] MEDS: LACTATED RINGERS SOLUTION 1,000 ML IV SCH (14:35)
--- NOTE | 2018-07-27 17:53 | PN ---
Progress Note (short form) - Note Progress Note: covering dr stevenson Problems 78 year old gentleman with history of ESRD on HD (MWF), Hypertension, Colon Ca s/p resection, Afib, PVD non-healing lower leg wounds. Anemia Renal Osteodystrophy Current Medications Acetaminophen (Tylenol -) 650 mg PO Q6H PRN PRN Reason: PAIN LEVEL 1-5 Last Admin: 07/27/18 14:57 Dose: 650 mg Alprazolam (Xanax -) 0.5 mg PO BID PRN PRN Reason: ANXIETY Last Admin: 07/26/18 21:53 Dose: 0.5 mg Atenolol (Tenormin -) 50 mg PO DAILY [facility] Last Admin: 07/27/18 09:34 Dose: 50 mg Atorvastatin Calcium (Lipitor -) 10 mg PO HS [facility] Last Admin: 07/26/18 21:52 Dose: 10 mg Collagenase (Santyl -) 1 applic TP DAILY [facility]; Protocol Last Admin: 07/27/18 09:35 Dose: Not Given Escitalopram Oxalate (Lexapro -) 10 mg PO DAILY [facility] Last Admin: 07/27/18 09:34 Dose: 10 mg Fentanyl (Sublimaze Injection -) 50 mcg IVPUSH [id number] PRN PRN Reason: PAIN-PACU ORDER X 4 DOSES ONLY Heparin Sodium (Porcine) (Heparin -) 5,000 unit SQ TID [facility] Last Admin: 07/27/18 14:57 Dose: 5,000 unit Sodium Chloride (Normal Saline -) 250 mls @ 3,000 mls/hr IV PRN PRN PRN Reason: Hypotension during Dialysis Lactated Ringer's (Lactated Ringers Solution) 1,000 mls @ 75 mls/hr IV [facility]IR [facility] Last Admin: 07/27/18 14:35 Dose: Not Given Piperacillin Sod/Tazobactam (Sod 2.25 gm/ Dextrose) 50 mls @ 100 mls/hr IVPB Q8H-IV [facility]; Protocol Last Admin: 07/27/18 09:34 Dose: 100 mls/hr Melatonin (Melatonin) 5 mg PO HS PRN PRN Reason: INSOMNIA Memantine (Namenda -) 5 mg PO BID [facility] Last Admin: 07/27/18 09:34 Dose: 5 mg Ondansetron HCl (Zofran Injection) 4 mg IVPUSH Q6H PRN PRN Reason: NAUSEA AND/OR VOMITING Pantoprazole Sodium (Protonix Iv) 40 mg IVPUSH DAILY [facility] Last Admin: 07/27/18 09:34 Dose: 40 mg Promethazine HCl (Phenergan Injection -) 12.5 mg IVPUSH Q6H PRN PRN Reason: NAUSEA-FOR RESCUE AFTER 15 MIN Sevelamer Carbonate (Renvela -) 800 mg PO TIDCM [facility] Last Admin: 07/27/18 13:00 Dose: 800 mg Trazodone HCl (Desyrel -) 50 mg PO HS [facility] Last Admin: 07/26/18 21:51 Dose: 50 mg Zolpidem Tartrate (Ambien -) 5 mg PO HS PRN PRN Reason: INSOMNIA Last Admin: 07/26/18 21:52 Dose: 5 mg Last Vital Signs Temp Pulse Resp BP Pulse Ox 97.4 F L 82 18 112/48 L 100 07/27/18 15:04 07/27/18 15:04 07/27/18 15:04 07/27/18 15:04 07/27/18 09:00 Lungs clear heart reg Abd soft nontender ext no edema CBC, BMP 07/27/18 06:45 07/27/18 06:45 CBC, BMP 07/25/18 06:30 07/25/18 06:30 IMP- esrd stable on hd PVD next hd tomorrow
[2018-07-27] MEDS ORDERED: SODIUM CHLORIDE 250 ML IV PRN (17:54)
[2018-07-27] MEDS: ALPRAZolam 0.25 MG TABLET PO PRN (21:03)
[2018-07-27] MEDS: ATORVASTATIN CA 10 MG TABLET (FP) PO SCH (21:04)
[2018-07-27] MEDS: traZODone HCL 50 MG TABLET (FP) PO SCH (21:04)
[2018-07-27] MEDS: ZOLPIDEM TARTRATE 5 MG TABLET PO PRN (21:04)
[2018-07-28] MEDS ORDERED: ceFAZolin SODIUM 1 GM VIAL IVPB ONE
[2018-07-28] MEDS ORDERED: DEXTROSE 5%-WATER - 50 ML IVPB ONE ×3 (01:09→18:21)
[2018-07-28] MEDS ORDERED: PIPERACILLIN/TAZOBACTAM 2.25 GM VIAL IVPB ONE ×3 (01:09→18:21)
[2018-07-28] MEDS: PIPERACILLIN/TAZOB 2.25 GM 2.25 GM in DEXTROSE 5%-WATER - 50 ML IVPB SCH ×3 (02:27→18:23)
[2018-07-28] MEDS: ACETAMINOPHEN 325 MG TABLET (FP) PO PRN ×2 (03:22→18:23)
[2018-07-28] MEDS: HEPARIN NA (PORCINE) 5,000 UNITS/ML 1ML VIAL SQ SCH ×3 (06:02→21:27)
[2018-07-28] MEDS ORDERED: KETOROLAC TROMETHAMINE 0.5% EYE DROP 1 DROP DROPS OD ONE ×3 (06:55→07:05)
[2018-07-28] MEDS ORDERED: CYCLOPENTOLATE HCL 1% OPHTH SOLN 2 ML BOTTLE OD ONE ×3 (06:55→07:05)
[2018-07-28] MEDS ORDERED: TROPICAMIDE 1% OPHTH SOLN 15 ML BOTTLE OD ONE ×3 (06:55→07:05)
[2018-07-28] MEDS ORDERED: PHENYLEPHRINE 2.5% OPHTH SOLN 15 ML BOTTLE OD ONE ×3 (06:55→07:05)
[2018-07-28] MEDS ORDERED: OFLOXACIN 0.3% OPHTHALMIC SOLUTION 5 ML BOTTLE OD ONE ×3 (06:55→07:05)
[2018-07-28] MEDS ORDERED: HEPARIN NA (PORCINE) 5,000 UNITS/ML 1ML VIAL ONE ×3 (07:16→09:04)
[2018-07-28] MEDS ORDERED: LIDOCAINE HCL 1%, 10 MG/ML (20ML VIAL) ONE (07:16)
[2018-07-28] MEDS ORDERED: PROPOFOL 20 ML ONE ×2 (07:47)
[2018-07-28] MEDS ORDERED: MIDAZOLAM HCL 2 MG/2 ML SINGLE DOSE VIAL ONE (07:47)
[2018-07-28] MEDS ORDERED: LIDOCAINE HCL/PF 2% SDV 5ML VIAL ONE (07:47)
[2018-07-28] MEDS ORDERED: LIDOCAINE HCL 1%, 10 MG/ML (50 mL VIAL) IJ ONE ×3 (08:28)
[2018-07-28] MEDS: SEVELAMER CARBONATE 800 MG TAB (FP) PO SCH ×3 (10:15→18:23)
[2018-07-28] MEDS ORDERED: COLLAGENASE CLOSTRIDIUM HIST. 30 GRAMS TUBE TP SCH (10:21)
--- NOTE | 2018-07-28 10:34 | OP ---
Operative Note - Note: Operative Date: 07/28/18 Pre-Operative Diagnosis: Gangrene right leg Operation: Revascularization right femoral artery with atherectomy and angioplasty. Angioplasty left external iliac artery Findings: Diffuse stenosis of right SFA with focal 90% stenosis at adductor canal. Patent popliteal and tibial arteries with PT dominant runoff to foot. Left external iliac stenosis 70-80% Post-Operative Diagnosis: Same as Pre-op Surgeon: Espinoza Martinez Anesthesiologist/NET WEB APPLICATION DEVELOPER: Harper Fonseca Anesthesia: Fractional Estimated Blood Loss (mls): 20
[2018-07-28] MEDS ORDERED: ASPIRIN 81 MG CHEWABLE TABLETS PO ONE (11:11)
[2018-07-28] MEDS ORDERED: CLOPIDOGREL BISULFATE 300 MG TABLET PO ONE (11:11)
[2018-07-28] MEDS ORDERED: CLOPIDOGREL BISULFATE 75 MG TABLET (FP) PO SCH (11:45)
[2018-07-28] MEDS ORDERED: ASPIRIN 81 MG CHEWABLE TABLETS PO SCH (11:45)
--- NOTE | 2018-07-28 11:51 | PN ---
Progress Note (short form) - Note Progress Note: Renal follow up for ESRD on HD Pt seen and examined at the bedside s/p angiogram and angioplasty this am no acute complaints denies any sob, cp, abd pain Vital Signs Temperature 98.0 F 07/28/18 11:15 Pulse Rate 84 07/28/18 11:15 Respiratory Rate 16 07/28/18 11:15 Blood Pressure 104/60 07/28/18 11:15 O2 Sat by Pulse Oximetry (%) 100 07/28/18 11:00 Intake & Output 07/25/18 07/26/18 07/27/18 07/28/18 23:59 23:59 23:59 23:59 Intake Total 8538 196 2315 350 Output Total 20 Balance 5531 318 5881 330 NAD awake and alert neck supple RRR CTA trace edema in left foot dressing over left heel CBC, BMP 07/27/18 06:45 07/27/18 06:45 Current Medications Acetaminophen (Tylenol -) 650 mg PO Q6H PRN PRN Reason: PAIN LEVEL 1-5 Last Admin: 07/28/18 03:22 Dose: 650 mg Alprazolam (Xanax -) 0.5 mg PO BID PRN PRN Reason: ANXIETY Last Admin: 07/27/18 21:03 Dose: 0.5 mg Aspirin (Asa -) 81 mg PO DAILY [facility] Atenolol (Tenormin -) 50 mg PO DAILY [facility] Last Admin: 07/27/18 09:34 Dose: 50 mg Atorvastatin Calcium (Lipitor -) 10 mg PO HS [facility] Last Admin: 07/27/18 21:04 Dose: 10 mg Clopidogrel Bisulfate (Plavix -) 75 mg PO DAILY [facility] Collagenase (Santyl -) 1 applic TP DAILY [facility]; Protocol Escitalopram Oxalate (Lexapro -) 10 mg PO DAILY [facility] Last Admin: 07/27/18 09:34 Dose: 10 mg Fentanyl (Sublimaze Injection -) 50 mcg IVPUSH [id number] PRN PRN Reason: PAIN-PACU ORDER X 4 DOSES ONLY Fentanyl (Sublimaze Injection -) 50 mcg IVPUSH [id number] PRN PRN Reason: PAIN-PACU ORDER X 4 DOSES ONLY Heparin Sodium (Porcine) (Heparin -) 5,000 unit SQ TID [facility] Last Admin: 07/28/18 06:02 Dose: 5,000 unit Sodium Chloride (Normal Saline -) 250 mls @ 3,000 mls/hr IV PRN PRN PRN Reason: Hypotension during Dialysis Lactated Ringer's (Lactated Ringers Solution) 1,000 mls @ 75 mls/hr IV ASDIR [facility] Last Admin: 07/27/18 14:35 Dose: Not Given Piperacillin Sod/Tazobactam (Sod 2.25 gm/ Dextrose) 50 mls @ 100 mls/hr IVPB Q8H-IV [facility]; Protocol Last Admin: 07/28/18 02:27 Dose: 100 mls/hr Sodium Chloride (Normal Saline -) 250 mls @ 3,000 mls/hr IV PRN PRN PRN Reason: Hypotension during Dialysis Stop: 07/28/18 17:54 Melatonin (Melatonin) 5 mg PO HS PRN PRN Reason: INSOMNIA Memantine (Namenda -) 5 mg PO BID [facility] Last Admin: 07/27/18 21:04 Dose: 5 mg Ondansetron HCl (Zofran Injection) 4 mg IVPUSH Q6H PRN PRN Reason: NAUSEA AND/OR VOMITING Pantoprazole Sodium (Protonix Iv) 40 mg IVPUSH DAILY [facility] Last Admin: 07/27/18 09:34 Dose: 40 mg Promethazine HCl (Phenergan Injection -) 12.5 mg IVPUSH Q6H PRN PRN Reason: NAUSEA-FOR RESCUE AFTER 15 MIN Sevelamer Carbonate (Renvela -) 800 mg PO TIDCM [facility] Last Admin: 07/28/18 10:15 Dose: Not Given Trazodone HCl (Desyrel -) 50 mg PO HS [facility] Last Admin: 07/27/18 21:04 Dose: 50 mg Zolpidem Tartrate (Ambien -) 5 mg PO HS PRN PRN Reason: INSOMNIA Last Admin: 07/27/18 21:04 Dose: 5 mg 78 year old gentleman with history of ESRD on HD (MWF), Hypertension, Colon Ca s /p resection, Afib, PVD who presented with non-healing lower leg wounds. #Non-healing LE wounds #ESRD on HD #Anemia #Renal Osteodystrophy s/p angiogram today will have dialysis today with UF as tolerated Renal diet, 1.2L fluid restriction will give DARON with HD for anemia continue renvela with meals Vascular follow up Armen Machado DO
[2018-07-28] MEDS ORDERED: PT OWN MED DRAWER 7, Y5N ONE (12:17)
--- NOTE | 2018-07-28 12:24 | PN ---
Physical Exam: SUBJECTIVE: Patient seen and examined at bedside this morning. He is s/p right femoral artery revascularization with arthrectomy and angioplasty, and left extrernal iliac artery angioplasty. He denies any acute complaints. Denies fevers, chills, shortness of breath, chest pain, palpitations, abdominal pain, nausea, vomiting, diarrhea. OBJECTIVE: Vital Signs Period Temp Pulse Resp BP Sys/[place]ina Pulse Ox Last 24 Hr 97.4 F-98.2 F 74-91 16-18 101-119/48-90 100-100 GENERAL: The patient is awake, alert, and fully oriented, in no acute distress. HEAD: Normal with no signs of trauma. EYES: PERRL, extraocular movements intact, sclera anicteric, conjunctiva clear. ENT: Ears normal, nares patent, oropharynx clear without exudates, moist mucous membranes. NECK: Trachea midline, full range of motion, supple. LUNGS: Breath sounds equal, clear to auscultation bilaterally, no wheezes, no crackles, no accessory muscle use. HEART: Irregular rate and rhythm, S1, S2 without murmur, rub or gallop. ABDOMEN: Soft, nontender, nondistended, normoactive bowel sounds, no guarding, no rebound, no hepatosplenomegaly. Reducible umbilical hernia noted. EXTREMITIES: 2+ radial pulses b/l, 1+ dorsalis pedis pulses b/l. 1+ pitting edema b/l lower extremities. NEUROLOGICAL: Cranial nerves II through XII grossly intact. Normal speech. PSYCH: Normal mood, normal affect upon my encounter today. SKIN: Right heel wound overlying Achilles tendon with granuloma. Bandage in place, clean, dry. Nondraining, tender to palpation. Left first and second distal toes gangrenous. Sensation intact until area of gangrenous toes, and right heel wound. Active Medications Generic Name Dose Route Start Last Admin Trade Name Freq PRN Reason Stop Dose Admin Acetaminophen 650 mg 07/26/18 11:41 07/28/18 03:22 Tylenol - PO 650 mg Q6H PRN Administration PAIN LEVEL 1-5 Alprazolam 0.5 mg 07/26/18 11:41 07/27/18 21:03 Xanax - PO 0.5 mg BID PRN Administration ANXIETY Aspirin 81 mg 07/28/18 11:45 Asa - PO DAILY [facility] Atenolol 50 mg 07/27/18 10:00 07/27/18 09:34 Tenormin - PO 50 mg DAILY [facility] Administration Atorvastatin Calcium 10 mg 07/26/18 22:00 07/27/18 21:04 Lipitor - PO 10 mg HS [facility] Administration Clopidogrel Bisulfate 75 mg 07/28/18 11:45 Plavix - PO DAILY [facility] Collagenase 1 applic 07/28/18 10:21 Santyl - TP DAILY [facility] Protocol Escitalopram Oxalate 10 mg 07/27/18 10:00 07/27/18 09:34 Lexapro - PO 10 mg DAILY [facility] Administration Fentanyl 50 mcg 07/26/18 11:41 Sublimaze Injection - IVPUSH [id number] PRN PAIN-PACU ORDER X 4 DOSES ONLY Fentanyl 50 mcg 07/28/18 08:16 Sublimaze Injection - IVPUSH [id number] PRN PAIN-PACU ORDER X 4 DOSES ONLY Heparin Sodium (Porcine) 5,000 unit 07/26/18 14:00 07/28/18 06:02 Heparin - SQ 5,000 unit TID [facility] Administration Sodium Chloride 250 mls @ 3,000 mls/hr 07/26/18 11:41 Normal Saline - IV PRN PRN Hypotension during Dialysis Lactated Ringer's 1,000 mls @ 75 mls/hr 07/26/18 11:41 07/27/18 14:35 Lactated Ringers Solution IV Not Given ASDIR [facility] Piperacillin Sod/Tazobactam 50 mls @ 100 mls/hr 07/26/18 18:00 07/28/18 02:27 Sod 2.25 gm/ Dextrose IVPB 100 mls/hr Q8H-IV [facility] Administration Protocol Sodium Chloride 250 mls @ 3,000 mls/hr 07/27/18 17:54 Normal Saline - IV 07/28/18 17:54 PRN PRN Hypotension during Dialysis Melatonin 5 mg 07/26/18 11:41 Melatonin PO HS PRN INSOMNIA Memantine 5 mg 07/26/18 22:00 07/27/18 21:04 Namenda - PO 5 mg BID [facility] Administration Ondansetron HCl 4 mg 07/26/18 11:41 Zofran Injection IVPUSH Q6H PRN NAUSEA AND/OR VOMITING Pantoprazole Sodium 40 mg 07/27/18 10:00 07/27/18 09:34 Protonix Iv IVPUSH 40 mg DAILY [facility] Administration Promethazine HCl 12.5 mg 07/26/18 11:41 Phenergan Injection - IVPUSH Q6H PRN NAUSEA-FOR RESCUE AFTER 15 MIN Sevelamer Carbonate 800 mg 07/26/18 12:00 07/28/18 10:15 Renvela - PO Not Given TIDCM [facility] Trazodone HCl 50 mg 07/26/18 22:00 07/27/18 21:04 Desyrel - PO 50 mg HS [facility] Administration Zolpidem Tartrate 5 mg 07/26/18 11:41 07/27/18 21:04 Ambien - PO 5 mg HS PRN Administration INSOMNIA ASSESSMENT/PLAN: Patient is an 78 year old male with history of hypertension, Afib (currently not on anticoagulation), ESRD on HD, colon CA s/p resection, renal osteodystrophy, peripheral arterial disease, dementia presents from [facility] with complaint of lower extremity wounds Bilateral lower extremity wounds -Patient is POD #0 s/p right femoral artery revascularization with arthrectomy and angioplasty, and left extrernal iliac artery angioplasty. POD #2 s/p right heel debridement. -F/U vascular surgery recommendations. -Zosyn 2.25 grams Q8H, Vancomycin 1 gram today. F/U random vancomycin level before dialysis. -ID consult (Dr. Scott) appreciated. -CTA lower extremities results noted. ESRD on HD -Nephrology consult (Dr. Machado) appreciated. -Patient for next HD today. Afib -Patient is currently not on anticoagulation due to due to GI bleed on prior recent admission. Has been on Eliquis and Coumadin in the past. -Currently rate controlled Hypertension -Atenolol 50mg PO daily Hyperlipidema -Atorvastatin 10mg PO daily Anxiety -Lexapro 10mg PO daily -Xanax 0.5mg PO BID PRN Dementia -Memantine 5mg PO BID -Renvela 800mg PP TID Insomnia -Trazodone 50mg PO QHS -Zolpidem 5mg PO HS PRN FEN -No IV fluids -Follow CMP -Sodium, renal controlled diet Prophylaxis -Heparin 5000u subq TID -Protonix 40mg IV daily Disposition: Continue care in medical surgical floor. Visit type - Emergency Visit Emergency Visit: Yes ED Registration Date: 07/22/18 Care time: The patient presented to the Emergency Department on the above date and was hospitalized for further evaluation of their emergent condition. - New Patient This patient is new to me today: No - Critical Care Critical Care patient: No - Discharge Referral Referred to [facility] Med P.C.: No
[2018-07-28] MEDS: MEMANTINE HCL 5 MG TABLET (UD) PO SCH ×2 (13:01→21:37)
[2018-07-28] MEDS: ESCITALOPRAM OXALATE 10 MG TABLET (FP) PO SCH (13:01)
[2018-07-28] MEDS: LACTATED RINGERS SOLUTION 1,000 ML IV SCH (13:02)
[2018-07-28] MEDS: ATENOLOL 50 MG TABLET (FP) PO SCH (13:02)
[2018-07-28] MEDS: PANTOPRAZOLE SODIUM 40 MG VIAL IVPUSH SCH (13:02)
[2018-07-28] MEDS: COLLAGENASE CLOSTRIDIUM HIST. 30 GRAMS TUBE TP SCH (13:23)
[2018-07-28 13:45] LABS: HEMATOCRIT 33.8 % (35.4-49); HEMOGLOBIN 10.3 GM/dL (11.7-16.9); MCH 30.2 pg (25.7-33.7); MCHC 30.3 g/dl (32.0-35.9); MEAN CELL VOLUME 99.6 fl (80-96); MEAN PLT VOLUME 9.6 fl (7.5-11.1); PLATELET COUNT 120 K/MM3 (134-434); RBC 3.39 M/mm3 (4.00-5.60); RDW 18.9 % (11.9-15.9); WHITE BLOOD COUNT 8.1 K/mm3 (4.0-10.0)
[2018-07-28] MEDS ORDERED: LACTATED RINGERS SOLUTION 1,000 ML IV SCH (13:56)
[2018-07-28] MEDS ORDERED: ONDANSETRON 4 MG/2 ML VIAL IVPUSH PRN (13:56)
[2018-07-28] MEDS ORDERED: SODIUM CHLORIDE 250 ML IV PRN ×2 (13:56)
[2018-07-28] MEDS ORDERED: PROMETHAZINE HCL 25 MG/1 ML VIAL IVPB PRN (13:56)
[2018-07-28] MEDS ORDERED: VANCOMYCIN 1 GRAM (PRE-DOCKED) 1,000 MG/250 ML BAG IVPB ONE (14:15)
[2018-07-28 14:30] LABS: ALBUMIN 2.7 g/dl (3.4-5.0); ALK PHOS 119 U/L (45-117); ANION GAP 13 MMOL/L (8-16); BILIRUBIN,TOTAL 0.5 mg/dL (0.2-1); BLOOD UREA NITROGEN 48 mg/dL (7-18); CALCIUM 8.7 mg/dL (8.5-10.1); CHLORIDE 94 mmol/L (98-107); CO2 27 mmol/L (21-32); CREATININE 6.3 mg/dL (0.55-1.3); GLUCOSE,RANDOM 83 mg/dL (74-106); MAGNESIUM 2.5 mg/dL (1.8-2.4); POTASSIUM 3.9 mmol/L (3.5-5.1); SGOT/AST 20 U/L (15-37); SGPT/ALT 25 U/L (13-61); SODIUM 134 mmol/L (136-145); TOT PROT 6.3 g/dl (6.4-8.2)
[2018-07-28 15:02] LABS: INR 1.31 (0.83-1.09); PROTHROMBIN TIME (PATIENT) 15.5 SEC (9.7-13.0)
[2018-07-28 15:13] LABS: ANISOCYTOSIS 1+; MACROCYTOSIS 1+; OVALOCYTE 1+; PLATELET ESTIMATE DECREASED
--- NOTE | 2018-07-28 16:34 | PN ---
Teaching Attending Note Name of Resident: Bladimir Staples ATTENDING PHYSICIAN STATEMENT I saw and evaluated the patient. I reviewed the resident's note and discussed the case with the resident. I agree with the resident's findings and plan as documented. SUBJECTIVE: OBJECTIVE: ASSESSMENT AND PLAN: -left second toe ischema/gangrene +/- cellulitis - s/p Rt acillies tendon eschar debridement - Vanco levels noted, addition 1 g IV today - pipercillin/tazobactam and vancomycin day 7. - Blood cx neg so far. -Severe PAD - see vascular surgery recommendation -Recent severe anemia/GIBleed off ASA/plavix - Off ASA/plavix currently. GI input if needs resumption of antiplatelets -ESRD on HD - HD per renal today -CAD - asa and clopidogrel is on hold -Atrial fibrillation: - on hold - rate control with atenolol Dyslipidemia: - c/w statin -Dementia -Renal osteodystrophy -Colon Ca s/p resection DVTPPX heparin Dispo pending clinical improvement. PT eval. Plan discussed with nursing, all questions answered. 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 Code(s): I70.269 - ATHSCL ABSENTEE-SHAWNEE ARTERIES OF EXTRM W GANGRENE, UNSP EXTREMITY (2) ESRD (end stage renal disease) Code(s): N18.6 - END STAGE RENAL DISEASE (3) Peripheral arterial disease Code(s): I73.9 - PERIPHERAL VASCULAR DISEASE, UNSPECIFIED (4) Acute upper GI bleed Code(s): K92.2 - GASTROINTESTINAL HEMORRHAGE, UNSPECIFIED (5) Anemia Code(s): D64.9 - ANEMIA, UNSPECIFIED Qualifiers: Anemia type: other cause Other causes of anemia: acute posthemorrhagic Qualified Code(s): D62 - Acute posthemorrhagic anemia (6) ESRD needing dialysis Code(s): N18.6 - END STAGE RENAL DISEASE; Z99.2 - DEPENDENCE ON RENAL DIALYSIS (7) HTN (hypertension) Code(s): I10 - ESSENTIAL (PRIMARY) HYPERTENSION
[2018-07-28] MEDS: traZODone HCL 50 MG TABLET (FP) PO SCH (21:36)
[2018-07-28] MEDS: ZOLPIDEM TARTRATE 5 MG TABLET PO PRN (21:37)
[2018-07-28] MEDS ORDERED: MELATONIN 5 MG TABLETS PO PRN (22:00)
[2018-07-28] MEDS ORDERED: ATORVASTATIN CA 10 MG TABLET (FP) PO SCH (22:00)
--- NOTE | 2018-07-29 01:29 | FALL ---
Fall Exam - Event Witnessed fall: No Location of Fall: Patient Room Fall from: Standing and slipped - Pre-Fall Mental Status: Alert, Oriented, Cooperative Current Medications: Current Medications Generic Name Dose Route Start Last Admin Trade Name Freq PRN Reason Stop Dose Admin Acetaminophen 650 mg 07/28/18 13:56 07/28/18 18:23 Tylenol - PO 650 mg Q6H PRN Administration PAIN LEVEL 1-5 Alprazolam 0.5 mg 07/28/18 13:56 Xanax - PO BID PRN ANXIETY Atenolol 50 mg 07/29/18 10:00 Tenormin - PO DAILY [facility] Atorvastatin Calcium 10 mg 07/28/18 22:00 07/28/18 21:36 Lipitor - PO 10 mg HS [facility] Administration Collagenase 1 applic 07/29/18 10:00 Santyl - TP DAILY [facility] Protocol Escitalopram Oxalate 10 mg 07/29/18 10:00 Lexapro - PO DAILY [facility] Fentanyl 50 mcg 07/28/18 13:56 Sublimaze Injection - IVPUSH [id number] PRN PAIN-PACU ORDER X 4 DOSES ONLY Heparin Sodium (Porcine) 5,000 unit 07/28/18 14:00 07/28/18 21:27 Heparin - SQ Not Given TID [facility] Sodium Chloride 250 mls @ 3,000 mls/hr 07/28/18 13:56 Normal Saline - IV PRN PRN Hypotension during Dialysis Sodium Chloride 250 mls @ 3,000 mls/hr 07/28/18 13:56 Normal Saline - IV 07/28/18 17:54 PRN PRN Hypotension during Dialysis Piperacillin Sod/Tazobactam 50 mls @ 100 mls/hr 07/28/18 18:00 18 18:23 Sod 2.25 gm/ Dextrose IVPB 100 mls/hr Q8H-IV [facility] Administration Protocol Memantine 5 mg 07/28/18 22:00 07/28/18 21:37 Namenda - PO 5 mg BID [facility] Administration Ondansetron HCl 4 mg 07/28/18 13:56 Zofran Injection IVPUSH Q6H PRN NAUSEA AND/OR VOMITING Pantoprazole Sodium 40 mg 07/29/18 10:00 Protonix Iv IVPUSH DAILY [facility] Promethazine HCl 12.5 mg 07/28/18 13:56 Phenergan Injection - IVPB Q6H PRN NAUSEA-FOR RESCUE AFTER 15 MIN Sevelamer Carbonate 800 mg 07/28/18 17:30 07/28/18 18:23 Renvela - PO 800 mg TIDCM [facility] Administration Trazodone HCl 50 mg 07/28/18 22:00 07/28/18 21:36 Desyrel - PO 50 mg HS [facility] Administration Zolpidem Tartrate 5 mg 07/28/18 22:00 07/28/18 21:37 Ambien - PO 5 mg HS PRN Administration INSOMNIA - Post-Fall Patient Outcome: Laceration (Right Ankle) Exam Findings: BP 131/77, HR 96, R22, 97% RA. CTA B/L, no wheezes. Irregular rate and rhythm, S1, S2. RLE Wound on the posterior ankle wrapped in dressing, No bleed through dressing. A&Ox3, CN 2-12 intact, PERRL, EOMI, Gross sensation intact throughout, 5/5 Muscle strength throughout, Able to perform Finger to nose and rapid hand movements Treatment: Dressing Vital Signs: Vital Signs Temperature 98.2 F 07/28/18 19:00 Pulse Rate 75 07/28/18 19:00 Respiratory Rate 18 07/28/18 19:00 Blood Pressure 115/55 L 07/28/18 19:00 O2 Sat by Pulse Oximetry (%) 100 07/28/18 11:00 LOC Post-Fall: Awake, Alert, Oriented Identify factors for HIGH RISK for Head Injury: Known to have hit head (Ordered CT Scan Noncontrast.)
[2018-07-29] MEDS ORDERED: PIPERACILLIN/TAZOBACTAM 2.25 GM VIAL IVPB ONE ×3 (01:51→17:03)
[2018-07-29] MEDS ORDERED: DEXTROSE 5%-WATER - 50 ML IVPB ONE ×3 (01:51→17:03)
[2018-07-29] MEDS: PIPERACILLIN/TAZOB 2.25 GM 2.25 GM in DEXTROSE 5%-WATER - 50 ML IVPB SCH ×3 (02:26→17:10)
[2018-07-29] MEDS: ACETAMINOPHEN 325 MG TABLET (FP) PO PRN ×2 (03:33→17:34)
[2018-07-29] MEDS ORDERED: MORPHINE SULFATE 2 MG/ML VIAL IVPUSH ONE (03:46)
[2018-07-29] MEDS: HEPARIN NA (PORCINE) 5,000 UNITS/ML 1ML VIAL SQ SCH ×3 (05:07→22:35)
--- NOTE | 2018-07-29 05:16 | PN ---
Progress Note (short form) - Note Progress Note: Due to fall, patient had bleeding from ankle site. Noticed blood soaked bandage. Bandage was removed, saw copious amount of blood over eschar wound. Packing was kept in place and wound site was rebandaged. Approx 30 mins later, new bandage was soaked through with blood and 2 more bandages were added on. Direct pressure was held, Leg was elevated. Bleeding controlled.
[2018-07-29 07:30] LABS: HEMATOCRIT 26.3 % (35.4-49); HEMOGLOBIN 8.8 GM/dL (11.7-16.9); MCH 32.4 pg (25.7-33.7); MCHC 33.5 g/dl (32.0-35.9); MEAN CELL VOLUME 96.7 fl (80-96); MEAN PLT VOLUME 9.9 fl (7.5-11.1); PLATELET COUNT 115 K/MM3 (134-434); RBC 2.72 M/mm3 (4.00-5.60); RDW 18.4 % (11.9-15.9); WHITE BLOOD COUNT 8.3 K/mm3 (4.0-10.0)
[2018-07-29 07:57] LABS: ALBUMIN 2.5 g/dl (3.4-5.0); ALK PHOS 109 U/L (45-117); ANION GAP 9 MMOL/L (8-16); BILIRUBIN,TOTAL 0.6 mg/dL (0.2-1); BLOOD UREA NITROGEN 27 mg/dL (7-18); CALCIUM 8.9 mg/dL (8.5-10.1); CHLORIDE 99 mmol/L (98-107); CO2 31 mmol/L (21-32); CREATININE 4.4 mg/dL (0.55-1.3); GLUCOSE,RANDOM 75 mg/dL (74-106); MAGNESIUM 2.3 mg/dL (1.8-2.4); PHOSPHOROUS 4.8 mg/dL (2.5-4.9); POTASSIUM 3.9 mmol/L (3.5-5.1); SGOT/AST 23 U/L (15-37); SGPT/ALT 25 U/L (13-61); SODIUM 139 mmol/L (136-145); TOT PROT 5.6 g/dl (6.4-8.2)
[2018-07-29] MEDS ORDERED: PT OWN MED DRAWER 7, Y5N ONE ×2 (08:44→13:32)
[2018-07-29] MEDS: SEVELAMER CARBONATE 800 MG TAB (FP) PO SCH ×3 (08:52→17:09)
[2018-07-29] MEDS: ESCITALOPRAM OXALATE 10 MG TABLET (FP) PO SCH (09:31)
[2018-07-29] MEDS: MEMANTINE HCL 5 MG TABLET (UD) PO SCH ×2 (09:31→22:34)
[2018-07-29] MEDS: ATENOLOL 50 MG TABLET (FP) PO SCH (09:32)
[2018-07-29] MEDS ORDERED: PANTOPRAZOLE SODIUM 40 MG VIAL IVPUSH SCH (10:00)
--- NOTE | 2018-07-29 11:40 | PN ---
Progress Note (short form) - Note Progress Note: Renal follow up for ESRD on HD Pt seen and examined at the bedside noted to have fall this am no pain at the preset time was also bleeding from the leg wound no cp, abd pain, dizziness s/p dialysis yesterday Vital Signs Temperature 97.7 F 07/29/18 11:00 Pulse Rate 91 H 07/29/18 11:00 Respiratory Rate 48 H 07/29/18 11:00 Blood Pressure 115/45 L 07/29/18 11:00 O2 Sat by Pulse Oximetry (%) 96 07/28/18 21:00 NAD no LE edema right leg heel in dressing CBC, BMP 07/29/18 06:30 07/29/18 06:30 Current Medications Acetaminophen (Tylenol -) 650 mg PO Q6H PRN PRN Reason: PAIN LEVEL 1-5 Last Admin: 07/29/18 03:33 Dose: 650 mg Alprazolam (Xanax -) 0.5 mg PO BID PRN PRN Reason: ANXIETY Aspirin (Ecotrin -) 81 mg PO DAILY [facility] Atenolol (Tenormin -) 50 mg PO DAILY [facility] Last Admin: 07/29/18 09:32 Dose: 50 mg Atorvastatin Calcium (Lipitor -) 10 mg PO HS [facility] Last Admin: 07/28/18 21:36 Dose: 10 mg Collagenase (Santyl -) 1 applic TP DAILY [facility]; Protocol Escitalopram Oxalate (Lexapro -) 10 mg PO DAILY [facility] Last Admin: 07/29/18 09:31 Dose: 10 mg Fentanyl (Sublimaze Injection -) 50 mcg IVPUSH [id number] PRN PRN Reason: PAIN-PACU ORDER X 4 DOSES ONLY Heparin Sodium (Porcine) (Heparin -) 5,000 unit SQ TID [facility] Last Admin: 07/29/18 05:07 Dose: Not Given Sodium Chloride (Normal Saline -) 250 mls @ 3,000 mls/hr IV PRN PRN PRN Reason: Hypotension during Dialysis Sodium Chloride (Normal Saline -) 250 mls @ 3,000 mls/hr IV PRN PRN PRN Reason: Hypotension during Dialysis Stop: 07/28/18 17:54 Piperacillin Sod/Tazobactam (Sod 2.25 gm/ Dextrose) 50 mls @ 100 mls/hr IVPB Q8H-IV [facility]; Protocol Last Admin: 07/29/18 10:04 Dose: 100 mls/hr Memantine (Namenda -) 5 mg PO BID [facility] Last Admin: 07/29/18 09:31 Dose: 5 mg Ondansetron HCl (Zofran Injection) 4 mg IVPUSH Q6H PRN PRN Reason: NAUSEA AND/OR VOMITING Pantoprazole Sodium (Protonix Iv) 40 mg IVPUSH BID [facility] Promethazine HCl (Phenergan Injection -) 12.5 mg IVPB Q6H PRN PRN Reason: NAUSEA-FOR RESCUE AFTER 15 MIN Sevelamer Carbonate (Renvela -) 800 mg PO TIDCM [facility] Last Admin: 07/29/18 08:52 Dose: 800 mg Trazodone HCl (Desyrel -) 50 mg PO HS [facility] Last Admin: 07/28/18 21:36 Dose: 50 mg Zolpidem Tartrate (Ambien -) 5 mg PO HS PRN PRN Reason: INSOMNIA Last Admin: 07/28/18 21:37 Dose: 5 mg 78 year old gentleman with history of ESRD on HD (MWF), Hypertension, Colon Ca s /p resection, Afib, PVD who presented with non-healing lower leg wounds. #Non-healing LE wounds #ESRD on HD #Anemia #Renal Osteodystrophy s/p dialysis yesterday w/o complication surgical follow up for LE wound next dialysis planned for tomorrow Armen Machado DO
--- NOTE | 2018-07-29 12:02 | PN ---
Progress Note, Physician Chief Complaint: day 1 s/p RLE angiogram/angioplasty - Current Medication List Current Medications: Active Medications Acetaminophen (Tylenol -) 650 mg PO Q6H PRN PRN Reason: PAIN LEVEL 1-5 Last Admin: 07/29/18 03:33 Dose: 650 mg Alprazolam (Xanax -) 0.5 mg PO BID PRN PRN Reason: ANXIETY Aspirin (Ecotrin -) 81 mg PO DAILY [facility] Atenolol (Tenormin -) 50 mg PO DAILY [facility] Last Admin: 07/29/18 09:32 Dose: 50 mg Atorvastatin Calcium (Lipitor -) 10 mg PO HS [facility] Last Admin: 07/28/18 21:36 Dose: 10 mg Collagenase (Santyl -) 1 applic TP DAILY [facility]; Protocol Epoetin Arsalan (Epogen -) 10,000 unit IVPUSH ONCE ONE Stop: 07/30/18 06:01 Escitalopram Oxalate (Lexapro -) 10 mg PO DAILY [facility] Last Admin: 07/29/18 09:31 Dose: 10 mg Fentanyl (Sublimaze Injection -) 50 mcg IVPUSH [id number] PRN PRN Reason: PAIN-PACU ORDER X 4 DOSES ONLY Heparin Sodium (Porcine) (Heparin -) 5,000 unit SQ TID [facility] Last Admin: 07/29/18 05:07 Dose: Not Given Sodium Chloride (Normal Saline -) 250 mls @ 3,000 mls/hr IV PRN PRN PRN Reason: Hypotension during Dialysis Sodium Chloride (Normal Saline -) 250 mls @ 3,000 mls/hr IV PRN PRN PRN Reason: Hypotension during Dialysis Stop: 07/28/18 17:54 Piperacillin Sod/Tazobactam (Sod 2.25 gm/ Dextrose) 50 mls @ 100 mls/hr IVPB Q8H-IV [facility]; Protocol Last Admin: 07/29/18 10:04 Dose: 100 mls/hr Sodium Chloride (Normal Saline -) 250 mls @ 3,000 mls/hr IV PRN PRN PRN Reason: Hypotension during Dialysis Stop: 07/30/18 11:40 Memantine (Namenda -) 5 mg PO BID [facility] Last Admin: 07/29/18 09:31 Dose: 5 mg Ondansetron HCl (Zofran Injection) 4 mg IVPUSH Q6H PRN PRN Reason: NAUSEA AND/OR VOMITING Pantoprazole Sodium (Protonix Iv) 40 mg IVPUSH BID [facility] Promethazine HCl (Phenergan Injection -) 12.5 mg IVPB Q6H PRN PRN Reason: NAUSEA-FOR RESCUE AFTER 15 MIN Sevelamer Carbonate (Renvela -) 800 mg PO TIDCM [facility] Last Admin: 07/29/18 08:52 Dose: 800 mg Trazodone HCl (Desyrel -) 50 mg PO HS [facility] Last Admin: 07/28/18 21:36 Dose: 50 mg Zolpidem Tartrate (Ambien -) 5 mg PO HS PRN PRN Reason: INSOMNIA Last Admin: 07/28/18 21:37 Dose: 5 mg - Objective Vital Signs: Vital Signs Temperature 97.7 F 07/29/18 11:00 Pulse Rate 91 H 07/29/18 11:00 Respiratory Rate 18 07/29/18 11:00 Blood Pressure 115/45 L 07/29/18 11:00 O2 Sat by Pulse Oximetry (%) 96 07/28/18 21:00 Labs: CBC, BMP 07/29/18 06:30 07/29/18 06:30 INR, PTT INR 1.31 (0.83-1.09) H 07/28/18 14:15 Assessment/Plan PT s/p angioplasty under [facility] yesterday. No issues/complications related to the anesthetic.
[2018-07-29] MEDS: PANTOPRAZOLE SODIUM 40 MG VIAL IVPUSH SCH ×2 (13:21→22:34)
[2018-07-29] MEDS: ASPIRIN COATED 81 MG TABLET.EC PO SCH (13:33)
[2018-07-29] MEDS ORDERED: SODIUM CHLORIDE 250 ML IV PRN (13:41)
--- NOTE | 2018-07-29 15:57 | PN ---
Physical Exam: SUBJECTIVE: Patient seen and examined at bedside this morning. He is POD #1 s/p right femoral artery revascularization with arthrectomy and angioplasty, and left extrernal iliac artery angioplasty. POD #3 s/p right heel debridement. Overnight, he fell on his way to bathroom. CT head negative for intracranial pathology. Bandage was blood soaked, and changed. Today, he denies any acute complaints. Denies fevers, chills, shortness of breath, chest pain, palpitations , abdominal pain, nausea, vomiting, diarrhea. OBJECTIVE: Vital Signs Period Temp Pulse Resp BP Sys/Medina Pulse Ox Last 24 Hr 97.3 F-98.8 F 75-101 18-22 99-132/45-83 96 GENERAL: The patient is awake, alert, and fully oriented, in no acute distress. HEAD: Normal with no signs of trauma. EYES: PERRL, extraocular movements intact, sclera anicteric, conjunctiva clear. ENT: Ears normal, nares patent, oropharynx clear without exudates, moist mucous membranes. NECK: Trachea midline, full range of motion, supple. LUNGS: Breath sounds equal, clear to auscultation bilaterally, no wheezes, no crackles, no accessory muscle use. HEART: Irregular rate and rhythm, S1, S2 without murmur, rub or gallop. ABDOMEN: Soft, nontender, nondistended, normoactive bowel sounds, no guarding, no rebound, no hepatosplenomegaly. Reducible umbilical hernia noted. EXTREMITIES: 2+ radial pulses b/l, 1+ dorsalis pedis pulses b/l. 1+ pitting edema b/l lower extremities. NEUROLOGICAL: Cranial nerves II through XII grossly intact. Normal speech. PSYCH: Normal mood, normal affect upon my encounter today. SKIN: Right heel wound overlying Achilles tendon with granuloma. Bandage in place, clean, dry. Nondraining, tender to palpation. Left first and second distal toes gangrenous, in addition to dorsal aspect third and fourth toes. Sensation intact until area of gangrenous toes, and right heel wound. Laboratory Results - last 24 hr 07/29/18 07/29/18 06:30 06:30 WBC 8.3 RBC 2.72 L Hgb 8.8 L Hct 26.3 L D MCV 96.7 H MCH 32.4 MCHC 33.5 RDW 18.4 H Plt Count 115 L MPV 9.9 Sodium 139 Potassium 3.9 Chloride 99 Carbon Dioxide 31 Anion Gap 9 BUN 27 H Creatinine 4.4 H Creat Clearance w eGFR 13.01 Random Glucose 75 Calcium 8.9 Phosphorus 4.8 Magnesium 2.3 Total Bilirubin 0.6 AST 23 ALT 25 Alkaline Phosphatase 109 Total Protein 5.6 L Albumin 2.5 L Active Medications Generic Name Dose Route Start Last Admin Trade Name Freq PRN Reason Stop Dose Admin Acetaminophen 650 mg 07/28/18 13:56 07/29/18 03:33 Tylenol - PO 650 mg Q6H PRN Administration PAIN LEVEL 1-5 Alprazolam 0.5 mg 07/28/18 13:56 Xanax - PO BID PRN ANXIETY Aspirin 81 mg 07/29/18 11:30 07/29/18 13:33 Ecotrin - PO 81 mg DAILY MARCUS Administration Atenolol 50 mg 07/29/18 10:00 07/29/18 09:32 Tenormin - PO 50 mg DAILY MARCUS Administration Atorvastatin Calcium 10 mg 07/28/18 22:00 07/28/18 21:36 Lipitor - PO 10 mg HS MARCUS Administration Collagenase 1 applic 07/29/18 10:00 Santyl - TP DAILY MARCUS Protocol Epoetin Arsalan 10,000 unit 07/30/18 06:00 Procrit - IVPUSH 07/30/18 06:01 ONCE ONE Escitalopram Oxalate 10 mg 07/29/18 10:00 07/29/18 09:31 Lexapro - PO 10 mg DAILY MARCUS Administration Fentanyl 50 mcg 07/28/18 13:56 Sublimaze Injection - IVPUSH [id number] PRN PAIN-PACU ORDER X 4 DOSES ONLY Heparin Sodium (Porcine) 5,000 unit 07/28/18 14:00 07/29/18 13:32 Heparin - SQ Not Given TID MARCUS Piperacillin Sod/Tazobactam 50 mls @ 100 mls/hr 07/28/18 18:00 07/29/18 10:04 Sod 2.25 gm/ Dextrose IVPB 100 mls/hr Q8H-IV MARCUS Administration Protocol Sodium Chloride 250 mls @ 3,000 mls/hr 07/29/18 11:40 Normal Saline - IV 07/30/18 11:40 PRN PRN Hypotension during Dialysis Memantine 5 mg 07/28/18 22:00 07/29/18 09:31 Namenda - PO 5 mg BID MARCUS Administration Ondansetron HCl 4 mg 07/28/18 13:56 Zofran Injection IVPUSH Q6H PRN NAUSEA AND/OR VOMITING Pantoprazole Sodium 40 mg 07/29/18 11:30 07/29/18 13:21 Protonix Iv IVPUSH Not Given BID MARCUS Promethazine HCl 12.5 mg 07/28/18 13:56 Phenergan Injection - IVPB Q6H PRN NAUSEA-FOR RESCUE AFTER 15 MIN Sevelamer Carbonate 800 mg 07/28/18 17:30 07/29/18 13:33 Renvela - PO 800 mg TIDCM MARCUS Administration Trazodone HCl 50 mg 07/28/18 22:00 07/28/18 21:36 Desyrel - PO 50 mg HS MARCUS Administration Zolpidem Tartrate 5 mg 07/28/18 22:00 07/28/18 21:37 Ambien - PO 5 mg HS PRN Administration INSOMNIA ASSESSMENT/PLAN: Patient is an 78 year old male with history of hypertension, Afib (currently not on anticoagulation), ESRD on HD, colon CA s/p resection, renal osteodystrophy, peripheral arterial disease, dementia presents from [facility] with complaint of lower extremity wounds Bilateral lower extremity wounds -Patient is POD #1 s/p right femoral artery revascularization with arthrectomy and angioplasty, and left extrernal iliac artery angioplasty. POD #3 s/p right heel debridement. -F/U vascular surgery recommendations. -Zosyn 2.25 grams Q8H. -ID consult (Dr. Scott) appreciated. -CTA lower extremities results noted. -F/U MRI right lower extremity to rule out osteomyelitis. -F/U podiatry consult (Dr. Campbell). ESRD on HD -Nephrology consult (Dr. Machado) appreciated. -Patient last had HD yesterday, 2kg removed. Tolerated well. Afib -Patient is currently not on anticoagulation due to due to GI bleed on prior recent admission. Has been on Eliquis and Coumadin in the past. -Currently rate controlled Coronary artery disease -Reinstate Aspirin 81mg PO daily. Discussed with hogshead cooper Dr. Beebe. -Monitor Hb/ Hct closely. Hypertension -Atenolol 50mg PO daily Hyperlipidema -Atorvastatin 10mg PO daily Anxiety -Lexapro 10mg PO daily -Xanax 0.5mg PO BID PRN Dementia -Memantine 5mg PO BID -Renvela 800mg PP TID Insomnia -Trazodone 50mg PO QHS -Zolpidem 5mg PO HS PRN FEN -No IV fluids -Follow CMP -Sodium, renal controlled diet Prophylaxis -Heparin 5000u subq TID -Protonix 40mg IV BID Disposition: Continue care in medical surgical floor. Visit type - Emergency Visit Emergency Visit: Yes ED Registration Date: 07/22/18 Care time: The patient presented to the Emergency Department on the above date and was hospitalized for further evaluation of their emergent condition. - New Patient This patient is new to me today: No - Critical Care Critical Care patient: No - Discharge Referral Referred to [facility] Med P.C.: No
--- NOTE | 2018-07-29 16:29 | PN ---
Teaching Attending Note Name of Resident: Bladimir Staples ATTENDING PHYSICIAN STATEMENT I saw and evaluated the patient. I reviewed the resident's note and discussed the case with the resident. I agree with the resident's findings and plan as documented. SUBJECTIVE: He states that he has chronic leg pain OBJECTIVE: in Current Medications Generic Name Dose Route Start Last Admin Trade Name Freq PRN Reason Stop Dose Admin Acetaminophen 650 mg 07/28/18 13:56 07/29/18 03:33 Tylenol - PO 650 mg Q6H PRN Administration PAIN LEVEL 1-5 Alprazolam 0.5 mg 07/28/18 13:56 Xanax - PO BID PRN ANXIETY Aspirin 81 mg 07/29/18 11:30 07/29/18 13:33 Ecotrin - PO 81 mg DAILY MARCUS Administration Atenolol 50 mg 07/29/18 10:00 07/29/18 09:32 Tenormin - PO 50 mg DAILY MARCUS Administration Atorvastatin Calcium 10 mg 07/28/18 22:00 07/28/18 21:36 Lipitor - PO 10 mg HS MARCUS Administration Collagenase 1 applic 07/29/18 10:00 Santyl - TP DAILY MARCUS Protocol Epoetin Arsalan 10,000 unit 07/30/18 06:00 Procrit - IVPUSH 07/30/18 06:01 ONCE ONE Escitalopram Oxalate 10 mg 07/29/18 10:00 07/29/18 09:31 Lexapro - PO 10 mg DAILY MARCUS Administration Fentanyl 50 mcg 07/28/18 13:56 Sublimaze Injection - IVPUSH [id number] PRN PAIN-PACU ORDER X 4 DOSES ONLY Heparin Sodium (Porcine) 5,000 unit 07/28/18 14:00 07/29/18 13:32 Heparin - SQ Not Given TID MARCUS Piperacillin Sod/Tazobactam 50 mls @ 100 mls/hr 07/28/18 18:00 07/29/18 10:04 Sod 2.25 gm/ Dextrose IVPB 100 mls/hr Q8H-IV MARCUS Administration Protocol Sodium Chloride 250 mls @ 3,000 mls/hr 07/29/18 11:40 Normal Saline - IV 07/30/18 11:40 PRN PRN Hypotension during Dialysis Memantine 5 mg 07/28/18 22:00 07/29/18 09:31 Namenda - PO 5 mg BID MARCUS Administration Ondansetron HCl 4 mg 07/28/18 13:56 Zofran Injection IVPUSH Q6H PRN NAUSEA AND/OR VOMITING Pantoprazole Sodium 40 mg 07/29/18 11:30 07/29/18 13:21 Protonix Iv IVPUSH Not Given BID MARCUS Promethazine HCl 12.5 mg 07/28/18 13:56 Phenergan Injection - IVPB Q6H PRN NAUSEA-FOR RESCUE AFTER 15 MIN Senna 2 tab 07/29/18 16:30 Senna - PO HS PRN CONSTIPATION Sevelamer Carbonate 800 mg 07/28/18 17:30 07/29/18 13:33 Renvela - PO 800 mg TIDCM MARCUS Administration Trazodone HCl 50 mg 07/28/18 22:00 07/28/18 21:36 Desyrel - PO 50 mg HS MARCUS Administration Zolpidem Tartrate 5 mg 07/28/18 22:00 07/28/18 21:37 Ambien - PO 5 mg HS PRN Administration INSOMNIA ASSESSMENT AND PLAN: PVD: S/P angioplasty B/L lower ext He is on no AntiPLT and no AC in the setting of recent GIB and possibly peptic ulcer. At this time will start on low dose Will send stool for occult blood Will increase the dose of PPI to BID Will add sucralfate Will F/U with GI Will increase the atorvastatin dose to 40 mg qhs had fall and bleeding from the surgical site was evaluated by vascular nad no need for further intervention at this time. Heel ulcer: on the xray he had OM, will ask podiatry and MRI for OM evaluation. He is on antibiotics will ask ID pending results of the imaging and possible OM and results of the CXs pain management: will readdress need for fentanyl, started on bowel regimen. HX of GIB: will need for transfusion, will increase the dose of PPI to BID, is off Will discuss with GI for need for F/U EGD Afib: on rate control: not on AC due to GIB fall:no ICH and no FX. ESRD:on HD and sevelamer FC to be further discussed with the family
[2018-07-29] MEDS ORDERED: MAG HYDROX/AL HYDROX/SIMETH 30 ML UNIT-DOSE CUP PO ONE (16:30)
[2018-07-29] MEDS ORDERED: SENNOSIDES 8.6MG TABLET (FP) PO PRN (16:30)
[2018-07-29] MEDS: COLLAGENASE CLOSTRIDIUM HIST. 30 GRAMS TUBE TP SCH (17:09)
[2018-07-29] MEDS: ALPRAZolam 0.25 MG TABLET PO PRN (17:10)
--- NOTE | 2018-07-29 18:28 | PATH ---
Surgical Pathology Report Patient Name: KEELEY MOCK Med. Rec. #: [id number] /Age/Gender: 1940 (Age: 78) / M Account: [id number] Location: [address] [place] [address]/[facility] Taken: 07/26/2018 Received: 07/26/2018 Reported: 07/29/2018 Physicians: PHYSICIAN EMERGENCY DEPT Specimen(s) Received DEBRIDEMENT TISSUE FROM RIGHT FOOT Clinical History Wound right foot Final Diagnosis FOOT, RIGHT, DEBRIDED TISSUE, DEBRIDEMENT: SKIN AND SOFT TISSUE WITH MARKED ACUTE AND CHRONIC NECROTIZING INFLAMMATION. Electronically Signed Joceline Parra M.D. Gross Description Received in formalin labeled "debrided tissue right foot" are multiple irregular fragments of white-freeman necrotic soft tissue measuring 6 x 4 x 2 cm in aggregate. Home Care Provider sections are submitted in one cassette. [email or web address]/07/26/2018 sananalia/07/26/2018
[2018-07-29] MEDS ORDERED: VANCOMYCIN 1 GRAM (PRE-DOCKED) 1,000 MG/250 ML BAG IVPB ONE (18:43)
--- NOTE | 2018-07-29 18:52 | PN ---
Progress Note, Physician Chief Complaint: C/O L heel pain Developed bleeding at site, dressing applied No fever/ chills - Current Medication List Current Medications: Active Medications Acetaminophen (Tylenol -) 650 mg PO Q6H PRN PRN Reason: PAIN LEVEL 1-5 Last Admin: 07/29/18 17:34 Dose: 650 mg Alprazolam (Xanax -) 0.5 mg PO BID PRN PRN Reason: ANXIETY Last Admin: 07/29/18 17:10 Dose: 0.5 mg Aspirin (Ecotrin -) 81 mg PO DAILY [facility] Last Admin: 07/29/18 13:33 Dose: 81 mg Atenolol (Tenormin -) 50 mg PO DAILY [facility] Last Admin: 07/29/18 09:32 Dose: 50 mg Atorvastatin Calcium (Lipitor -) 40 mg PO HS [facility] Collagenase (Santyl -) 1 applic TP DAILY [facility]; Protocol Last Admin: 07/29/18 17:09 Dose: 1 applic Epoetin Arsalan (Procrit -) 10,000 unit IVPUSH ONCE ONE Stop: 07/30/18 06:01 Escitalopram Oxalate (Lexapro -) 10 mg PO DAILY [facility] Last Admin: 07/29/18 09:31 Dose: 10 mg Fentanyl (Sublimaze Injection -) 50 mcg IVPUSH [id number] PRN PRN Reason: PAIN-PACU ORDER X 4 DOSES ONLY Heparin Sodium (Porcine) (Heparin -) 5,000 unit SQ TID [facility] Last Admin: 07/29/18 13:32 Dose: Not Given Piperacillin Sod/Tazobactam (Sod 2.25 gm/ Dextrose) 50 mls @ 100 mls/hr IVPB Q8H-IV [facility]; Protocol Last Admin: 07/29/18 17:10 Dose: 100 mls/hr Sodium Chloride (Normal Saline -) 250 mls @ 3,000 mls/hr IV PRN PRN PRN Reason: Hypotension during Dialysis Stop: 07/30/18 11:40 Vancomycin HCl 1,000 mg/ (Dextrose) 250 mls @ 166.667 mls/hr IVPB ONCE ONE; Protocol Stop: 07/29/18 20:12 Memantine (Namenda -) 5 mg PO BID [facility] Last Admin: 07/29/18 09:31 Dose: 5 mg Ondansetron HCl (Zofran Injection) 4 mg IVPUSH Q6H PRN PRN Reason: NAUSEA AND/OR VOMITING Pantoprazole Sodium (Protonix Iv) 40 mg IVPUSH BID [facility] Last Admin: 07/29/18 13:21 Dose: Not Given Promethazine HCl (Phenergan Injection -) 12.5 mg IVPB Q6H PRN PRN Reason: NAUSEA-FOR RESCUE AFTER 15 MIN Senna (Senna -) 2 tab PO HS PRN PRN Reason: CONSTIPATION Sevelamer Carbonate (Renvela -) 800 mg PO TIDCM [facility] Last Admin: 07/29/18 17:09 Dose: 800 mg Trazodone HCl (Desyrel -) 50 mg PO HS [facility] Last Admin: 07/28/18 21:36 Dose: 50 mg Zolpidem Tartrate (Ambien -) 5 mg PO HS PRN PRN Reason: INSOMNIA Last Admin: 07/28/18 21:37 Dose: 5 mg - Objective Vital Signs: Vital Signs Temperature 97.8 F 07/29/18 17:06 Pulse Rate 87 07/29/18 17:06 Respiratory Rate 20 07/29/18 17:06 Blood Pressure 118/58 L 07/29/18 17:06 O2 Sat by Pulse Oximetry (%) 100 07/29/18 09:00 Constitutional: Yes: No Distress Cardiovascular: Yes: Regular Rate and Rhythm, S1, S2 Respiratory: Yes: CTA Bilaterally Gastrointestinal: Yes: Normal Bowel Sounds, Soft Extremities: Yes: Other (decreased erythema, R toes; dressing in place L foot with bloody drainage- left intact) Labs: CBC, BMP 07/29/18 06:30 07/29/18 06:30 INR, PTT INR 1.31 (0.83-1.09) H 07/28/18 14:15 Assessment/Plan Gangrene, necrotic foot ulcers ESRD Continue zosyn Redose vancomycin
[2018-07-29] MEDS: ZOLPIDEM TARTRATE 5 MG TABLET PO PRN (22:34)
[2018-07-29] MEDS: ATORVASTATIN CA 40 MG TABLET (FP) PO SCH (22:34)
[2018-07-29] MEDS: traZODone HCL 50 MG TABLET (FP) PO SCH (22:34)
[2018-07-30] MEDS ORDERED: DEXTROSE 5%-WATER - 50 ML IVPB ONE ×3 (01:25→17:55)
[2018-07-30] MEDS ORDERED: PIPERACILLIN/TAZOBACTAM 2.25 GM VIAL IVPB ONE ×3 (01:25→17:55)
[2018-07-30] MEDS: PIPERACILLIN/TAZOB 2.25 GM 2.25 GM in DEXTROSE 5%-WATER - 50 ML IVPB SCH ×3 (02:53→19:22)
[2018-07-30] MEDS: HEPARIN NA (PORCINE) 5,000 UNITS/ML 1ML VIAL SQ SCH ×3 (06:47→21:56)
--- NOTE | 2018-07-30 08:10 | PN ---
Physical Exam: SUBJECTIVE: Patient seen and examined at bedside this morning. He is POD #2 s/p right femoral artery revascularization with arthrectomy and angioplasty, and left extrernal iliac artery angioplasty. POD #4 s/p right heel debridement. Today, he denies any acute complaints. Denies fevers, chills, shortness of breath, chest pain, palpitations, abdominal pain, nausea, vomiting, diarrhea. Case discussed over phone with daughter Claudette . OBJECTIVE: Vital Signs Period Temp Pulse Resp BP Sys/Medina Pulse Ox Last 24 Hr 97 F-98.5 F 85-105 18-21 100-127/45-79 96-100 GENERAL: The patient is awake, alert, and fully oriented, in no acute distress. HEAD: Normal with no signs of trauma. EYES: PERRL, extraocular movements intact, sclera anicteric, conjunctiva clear. ENT: Ears normal, nares patent, oropharynx clear without exudates, moist mucous membranes. NECK: Trachea midline, full range of motion, supple. LUNGS: Breath sounds equal, clear to auscultation bilaterally, no wheezes, no crackles, no accessory muscle use. HEART: Irregular rate and rhythm, S1, S2 without murmur, rub or gallop. ABDOMEN: Soft, nontender, nondistended, normoactive bowel sounds, no guarding, no rebound, no hepatosplenomegaly. Reducible umbilical hernia noted. EXTREMITIES: 2+ radial pulses b/l, 1+ dorsalis pedis pulses b/l. 1+ pitting edema b/l lower extremities. NEUROLOGICAL: Cranial nerves II through XII grossly intact. Normal speech. PSYCH: Normal mood, normal affect upon my encounter today. SKIN: Right heel wound overlying Achilles tendon with granuloma. Bandage in place, clean, dry. Nondraining, tender to palpation. Left first and second distal toes gangrenous, in addition to dorsal aspect third and fourth toes. Sensation intact until area of gangrenous toes, and right heel wound. Active Medications Generic Name Dose Route Start Last Admin Trade Name Freq PRN Reason Stop Dose Admin Acetaminophen 650 mg 07/28/18 13:56 07/29/18 17:34 Tylenol - PO 650 mg Q6H PRN Administration PAIN LEVEL 1-5 Alprazolam 0.5 mg 07/28/18 13:56 07/29/18 17:10 Xanax - PO 0.5 mg BID PRN Administration ANXIETY Aspirin 81 mg 07/29/18 11:30 07/29/18 13:33 Ecotrin - PO 81 mg DAILY MARCUS Administration Atenolol 50 mg 07/29/18 10:00 07/29/18 09:32 Tenormin - PO 50 mg DAILY MARCUS Administration Atorvastatin Calcium 40 mg 07/29/18 22:00 07/29/18 22:34 Lipitor - PO 40 mg HS MARCUS Administration Collagenase 1 applic 07/29/18 10:00 07/29/18 17:09 Santyl - TP 1 applic DAILY MARCUS Administration Protocol Epoetin Arsalan 10,000 unit 07/30/18 06:00 Procrit - IVPUSH 07/30/18 06:01 ONCE ONE Escitalopram Oxalate 10 mg 07/29/18 10:00 07/29/18 09:31 Lexapro - PO 10 mg DAILY MARCUS Administration Fentanyl 50 mcg 07/28/18 13:56 Sublimaze Injection - IVPUSH [id number] PRN PAIN-PACU ORDER X 4 DOSES ONLY Heparin Sodium (Porcine) 5,000 unit 07/28/18 14:00 07/30/18 06:47 Heparin - SQ Not Given TID [facility] Piperacillin Sod/Tazobactam 50 mls @ 100 mls/hr 07/28/18 18:00 07/30/18 02:53 Sod 2.25 gm/ Dextrose IVPB 100 mls/hr Q8H-IV MARCUS Administration Protocol Sodium Chloride 250 mls @ 3,000 mls/hr 07/29/18 11:40 Normal Saline - IV 07/30/18 11:40 PRN PRN Hypotension during Dialysis Memantine 5 mg 07/28/18 22:00 07/29/18 22:34 Namenda - PO 5 mg BID MARCUS Administration Ondansetron HCl 4 mg 07/28/18 13:56 Zofran Injection IVPUSH Q6H PRN NAUSEA AND/OR VOMITING Pantoprazole Sodium 40 mg 07/29/18 11:30 07/29/18 22:34 Protonix Iv IVPUSH 40 mg BID MARCUS Administration Promethazine HCl 12.5 mg 07/28/18 13:56 Phenergan Injection - IVPB Q6H PRN NAUSEA-FOR RESCUE AFTER 15 MIN Senna 2 tab 07/29/18 16:30 Senna - PO HS PRN CONSTIPATION Sevelamer Carbonate 800 mg 07/28/18 17:30 07/29/18 17:09 Renvela - PO 800 mg TIDCM MARCUS Administration Trazodone HCl 50 mg 07/28/18 22:00 07/29/18 22:34 Desyrel - PO 50 mg HS MARCUS Administration Zolpidem Tartrate 5 mg 07/28/18 22:00 07/29/18 22:34 Ambien - PO 5 mg HS PRN Administration INSOMNIA ASSESSMENT/PLAN: Patient is an 78 year old male with history of hypertension, Afib (currently not on anticoagulation), ESRD on HD, colon CA s/p resection, renal osteodystrophy, peripheral arterial disease, dementia presents from [facility] with complaint of lower extremity wounds Bilateral lower extremity wounds -Patient is POD #2 s/p right femoral artery revascularization with arthrectomy and angioplasty, and left extrernal iliac artery angioplasty. POD #4 s/p right heel debridement. -F/U vascular surgery recommendations. -Zosyn 2.25 grams Q8H. Vancomycin 1 gram given yesterday. Vancomycin level today was 27.4 -ID consult (Dr. Scott) appreciated. -CTA lower extremities results noted. -Unable to perform MRI as patient's daughter unable to find spinal stimulator information at this time. After discussion with podiatry, will perform triple phase bone scan. -Podiatry consult (Dr. De León) appreciated. ESRD on HD -Nephrology consult (Dr. Machado) appreciated. -Patient for HD today. Afib -Patient is currently not on anticoagulation due to due to GI bleed on prior recent admission. Has been on Eliquis and Coumadin in the past. -Currently rate controlled Coronary artery disease -Reinstate Aspirin 81mg PO daily. Discussed with pipe fitter maintenance Dr. Beebe. -Monitor Hb/ Hct closely. Hypertension -Atenolol 50mg PO daily Hyperlipidema -Atorvastatin 10mg PO daily Anxiety -Lexapro 10mg PO daily -Xanax 0.5mg PO BID PRN Dementia -Memantine 5mg PO BID -Renvela 800mg PP TID Insomnia -Trazodone 50mg PO QHS -Zolpidem 5mg PO HS PRN FEN -No IV fluids -Follow CMP -Sodium, renal controlled diet Prophylaxis -Heparin 5000u subq TID -Protonix 40mg IV BID Disposition: Continue care in medical surgical floor. Visit type - Emergency Visit Emergency Visit: Yes ED Registration Date: 07/22/18 Care time: The patient presented to the Emergency Department on the above date and was hospitalized for further evaluation of their emergent condition. - New Patient This patient is new to me today: No - Critical Care Critical Care patient: No - Discharge Referral Referred to [facility] No
[2018-07-30] MEDS: ACETAMINOPHEN 325 MG TABLET (FP) PO PRN ×2 (08:38→18:00)
[2018-07-30] MEDS: SEVELAMER CARBONATE 800 MG TAB (FP) PO SCH ×3 (08:38→18:00)
--- NOTE | 2018-07-30 09:57 | PN ---
Progress Note (short form) - Note Progress Note: 78M seen and examined at bedside this morning. He is POD #2 s/p right femoral artery revascularization with arthrectomy and angioplasty, and left extrernal iliac artery angioplasty. POD #4 s/p right heel debridement. Today, he denies any acute complaints. Denies fevers, chills, shortness of breath, chest pain, palpitations, abdominal pain, nausea, vomiting, diarrhea. Pt not the best historian as has some dementia. Last Vital Signs Temp Pulse Resp BP Pulse Ox 97.5 F L 105 H 21 H 125/59 L 96 07/30/18 06:00 07/30/18 06:00 07/30/18 06:00 07/30/18 06:00 07/29/18 21:00 CBC, BMP 07/29/18 06:30 07/29/18 06:30 PE: Gen: A&O x3 Resp: breathing comfortably Ext: Left groin some echymosis, incision clean no erythema/palpable masses. RLE shows 6 x 4 cm wound on posterior ankle, wound bed is clean with no erythema , serosanguinous discharge noted, +2 edema, foot is warm and pink. LLE show + 1 edema Problem List - Problems (1) Wound of right leg Assessment/Plan: Plan -daily wet to dry dressing changes -abx as per Medicine/ID -DVT ppx Code(s): S81.801A - UNSPECIFIED OPEN WOUND, RIGHT LOWER LEG, INITIAL ENCOUNTER Qualifiers: Encounter type: initial encounter Qualified Code(s): S81.801A - Unspecified open wound, right lower leg, initial encounter
[2018-07-30] MEDS: ASPIRIN COATED 81 MG TABLET.EC PO SCH (10:10)
[2018-07-30] MEDS: MEMANTINE HCL 5 MG TABLET (UD) PO SCH ×2 (10:11→21:56)
[2018-07-30] MEDS: ATENOLOL 50 MG TABLET (FP) PO SCH (10:11)
[2018-07-30] MEDS: PANTOPRAZOLE SODIUM 40 MG VIAL IVPUSH SCH ×2 (10:11→21:56)
[2018-07-30] MEDS: COLLAGENASE CLOSTRIDIUM HIST. 30 GRAMS TUBE TP SCH (10:11)
[2018-07-30] MEDS: ESCITALOPRAM OXALATE 10 MG TABLET (FP) PO SCH (10:11)
--- NOTE | 2018-07-30 12:20 | PN ---
Progress Note (short form) - Note Progress Note: Renal follow up for ESRD on HD Pt seen and examined at the bedside did not sleep well but no acute complaints no pain, sob, cp, abd discomfort for dialysis today Vital Signs Temperature 97.5 F L 07/30/18 06:00 Pulse Rate 80 07/30/18 10:05 Respiratory Rate 20 07/30/18 10:05 Blood Pressure 102/60 07/30/18 10:05 O2 Sat by Pulse Oximetry (%) 96 07/29/18 21:00 NAD no LE edema right leg heel in dressing CBC, BMP 07/29/18 06:30 07/29/18 06:30 Current Medications Acetaminophen (Tylenol -) 650 mg PO Q6H PRN PRN Reason: PAIN LEVEL 1-5 Last Admin: 07/30/18 08:38 Dose: 650 mg Alprazolam (Xanax -) 0.5 mg PO BID PRN PRN Reason: ANXIETY Last Admin: 07/29/18 17:10 Dose: 0.5 mg Aspirin (Ecotrin -) 81 mg PO DAILY [facility] Last Admin: 07/30/18 10:10 Dose: Not Given Atenolol (Tenormin -) 50 mg PO DAILY [facility] Last Admin: 07/30/18 10:11 Dose: Not Given Atorvastatin Calcium (Lipitor -) 40 mg PO HS [facility] Last Admin: 07/29/18 22:34 Dose: 40 mg Collagenase (Santyl -) 1 applic TP DAILY [facility]; Protocol Last Admin: 07/30/18 10:11 Dose: 1 applic Epoetin Arsalan (Procrit -) 10,000 unit IVPUSH ONCE ONE Stop: 07/30/18 06:01 Escitalopram Oxalate (Lexapro -) 10 mg PO DAILY [facility] Last Admin: 07/30/18 10:11 Dose: Not Given Fentanyl (Sublimaze Injection -) 50 mcg IVPUSH [id number] PRN PRN Reason: PAIN-PACU ORDER X 4 DOSES ONLY Heparin Sodium (Porcine) (Heparin -) 5,000 unit SQ TID [facility] Last Admin: 07/30/18 06:47 Dose: Not Given Piperacillin Sod/Tazobactam (Sod 2.25 gm/ Dextrose) 50 mls @ 100 mls/hr IVPB Q8H-IV [facility]; Protocol Last Admin: 07/30/18 10:12 Dose: Not Given Sodium Chloride (Normal Saline -) 250 mls @ 3,000 mls/hr IV PRN PRN PRN Reason: Hypotension during Dialysis Stop: 07/30/18 11:40 Memantine (Namenda -) 5 mg PO BID [facility] Last Admin: 07/30/18 10:11 Dose: Not Given Ondansetron HCl (Zofran Injection) 4 mg IVPUSH Q6H PRN PRN Reason: NAUSEA AND/OR VOMITING Pantoprazole Sodium (Protonix Iv) 40 mg IVPUSH BID [facility] Last Admin: 07/30/18 10:11 Dose: Not Given Promethazine HCl (Phenergan Injection -) 12.5 mg IVPB Q6H PRN PRN Reason: NAUSEA-FOR RESCUE AFTER 15 MIN Senna (Senna -) 2 tab PO HS PRN PRN Reason: CONSTIPATION Sevelamer Carbonate (Renvela -) 800 mg PO TIDCM [facility] Last Admin: 07/30/18 08:38 Dose: 800 mg Trazodone HCl (Desyrel -) 50 mg PO HS [facility] Last Admin: 07/29/18 22:34 Dose: 50 mg Zolpidem Tartrate (Ambien -) 5 mg PO HS PRN PRN Reason: INSOMNIA Last Admin: 07/29/18 22:34 Dose: 5 mg 78 year old gentleman with history of ESRD on HD (MWF), Hypertension, Colon Ca s /p resection, Afib, PVD who presented with non-healing lower leg wounds. #Non-healing LE wounds #ESRD on HD #Anemia #Renal Osteodystrophy for dialysis today with UF as tolerated will continue DARON with HD as needed Surgical follow up continue renvela TID with meals Armen Machado DO
--- NOTE | 2018-07-30 12:36 | CONSULT ---
Consult Consult Specialty:: PODIATRY Referred by:: evan Reason for Consultation:: eval right heel OM - History of Present Illness History of Present Illness: 78 y/o male seen adn evaluated in bed. Patient is drowsy and in and out of conversation during exam. States that roughly 3 weeks ago he feel and cut the back of his right leg. Became swolen and infected. Has understand right leg debridement already and now consulted for further evaluation of OM of the right heel. Upon exam is in sever pain upon palpation of the area. Denies any other complaints. Denies any f/c/n/v/sob. - History Source History Provided By: Patient - Past Medical History Cardio/Vascular: Yes: CAD, HTN Renal/: Yes: Renal Failure - Past Surgical History Past Surgical History: Yes: AV Fistula/Graft - Alcohol/Substance Use Hx Alcohol Use: No History of Substance Use: reports: None - Smoking History Smoking history: Never smoked Have you smoked in the past 12 months: No - Social History Usual Living Arrangement: Custodial ADL: Support Services History of Recent Travel: No Home Medications - Allergies Allergies/Adverse Reactions: Allergies Allergy/AdvReac Type Severity Reaction Status Date / Time No Known Allergies Allergy Verified 08/15/16 11:51 - Home Medications Home Medications: Ambulatory Orders Alprazolam [Xanax] 0.5 mg PO BID PRN 08/15/16 Atenolol [Tenormin -] 50 mg PO DAILY 08/15/16 Oxycodone HCl/Acetaminophen [Percocet 5-325 mg Tablet] 1 tab PO Q6H 08/15/16 Zolpidem Tartrate [Ambien] 5 mg PO HS 08/15/16 traZODone HCL [Trazodone HCl] 50 mg PO HS 08/15/16 Cinacalcet HCl [Sensipar -] 30 mg PO DAILY 06/30/18 Docusate Sodium [Colace] 2 cap PO HS 06/30/18 Escitalopram Oxalate [Lexapro -] 10 mg PO DAILY 06/30/18 Memantine HCl [Namenda -] 5 mg PO BID 06/30/18 Polyethylene Glycol 3350 [Laxaclear] 1,700 gm PO DAILY 06/30/18 Sennosides [Senna Concentrate] 8.6 mg PO DAILY 06/30/18 Sevelamer Carbonate [Renvela -] 800 mg PO TID 06/30/18 Vit B Comp No.3/Folic/C/Biotin [Nephro-Louie Rx Tablet] 1 each PO DAILY 06/30/18 Atorvastatin Ca [Lipitor] 10 mg PO HS tablet 07/04/18 Pantoprazole Sodium [Protonix] 40 mg PO ASDIR #60 tablet. 07/04/18 Physical Exam Vital Signs: Vital Signs Temperature 97.5 F L 07/30/18 06:00 Pulse Rate 80 07/30/18 10:05 Respiratory Rate 20 07/30/18 10:05 Blood Pressure 102/60 07/30/18 10:05 O2 Sat by Pulse Oximetry (%) 96 07/29/18 21:00 Constitutional: Yes: Well Nourished Wound/Incision: Yes: Other (right heel/posterior leg with open wound, fibrogranular base, achilles exposed, no visible calcaneus but is palpable underlying thin layer of granular tissue, proximal erythema noted, some eccymosis distally, diffuse edema noted, no purulence, no malodor noted) Labs: CBC, BMP 07/29/18 06:30 07/29/18 06:30 Assessment/Plan A: Rigt heel possible OM P: Evaluated and chart reviewed Will await MRI if not able to undergo recc triphasic if positive will plan for bone biopsy//calc debridement if negative wound is stable and can have f/u with Wound Care
[2018-07-30] MEDS ORDERED: EPOETIN ALFA 10,000 UNIT/1 ML VIAL IVPUSH ONE ×2 (13:45→17:00)
[2018-07-30 14:02] LABS: HEMATOCRIT 24.7 % (35.4-49); HEMOGLOBIN 8.2 GM/dL (11.7-16.9); MCH 32.2 pg (25.7-33.7); MCHC 33.4 g/dl (32.0-35.9); MEAN CELL VOLUME 96.5 fl (80-96); MEAN PLT VOLUME 10.2 fl (7.5-11.1); PLATELET COUNT 116 K/MM3 (134-434); RBC 2.56 M/mm3 (4.00-5.60); RDW 18.2 % (11.9-15.9); WHITE BLOOD COUNT 7.1 K/mm3 (4.0-10.0)
[2018-07-30 14:27] LABS: ALBUMIN 2.5 g/dl (3.4-5.0); ALK PHOS 113 U/L (45-117); ANION GAP 14 MMOL/L (8-16); BILIRUBIN,TOTAL 0.5 mg/dL (0.2-1); BLOOD UREA NITROGEN 41 mg/dL (7-18); CALCIUM 9.1 mg/dL (8.5-10.1); CHLORIDE 96 mmol/L (98-107); CO2 26 mmol/L (21-32); CREATININE 6.1 mg/dL (0.55-1.3); GLUCOSE,RANDOM 178 mg/dL (74-106); PHOSPHOROUS 5.4 mg/dL (2.5-4.9); SGOT/AST 27 U/L (15-37); SGPT/ALT 24 U/L (13-61); SODIUM 136 mmol/L (136-145); TOT PROT 5.8 g/dl (6.4-8.2)
[2018-07-30 15:34] VITALS: BMI 26.1
[2018-07-30] MEDS ORDERED: EPOETIN ALFA 10,000 UNIT/1 ML VIAL SQ ONE (17:00)
--- NOTE | 2018-07-30 18:53 | PN ---
Teaching Attending Note Name of Resident: Bladimir Staples ATTENDING PHYSICIAN STATEMENT I saw and evaluated the patient. I reviewed the resident's note and discussed the case with the resident. I agree with the resident's findings and plan as documented. SUBJECTIVE: no new complaints, been evaluated by podiatry and will get triphasic bone scan as unclear if the nerve stimlator in his back is MRI safe or not . OBJECTIVE: eldery, in no distress no abdominal pain wound is clean and no more bleeding at the site of the sutures Last Vital Signs Temp Pulse Resp BP Pulse Ox 97.5 F L 78 18 140/74 96 07/30/18 14:53 07/30/18 17:00 07/30/18 17:00 07/30/18 17:00 07/29/18 21:00 Current Medications Generic Name Dose Route Start Last Admin Trade Name Freq PRN Reason Stop Dose Admin Acetaminophen 650 mg 07/28/18 13:56 07/30/18 18:00 Tylenol - PO 650 mg Q6H PRN Administration PAIN LEVEL 1-5 Alprazolam 0.5 mg 07/28/18 13:56 07/29/18 17:10 Xanax - PO 0.5 mg BID PRN Administration ANXIETY Aspirin 81 mg 07/29/18 11:30 07/30/18 10:10 Ecotrin - PO Not Given DAILY [facility] Atenolol 50 mg 07/29/18 10:00 07/30/18 10:11 Tenormin - PO Not Given DAILY [facility] Atorvastatin Calcium 40 mg 07/29/18 22:00 07/29/18 22:34 Lipitor - PO 40 mg HS [facility] Administration Collagenase 1 applic 07/29/18 10:00 07/30/18 10:11 Santyl - TP 1 applic DAILY [facility] Administration Protocol Escitalopram Oxalate 10 mg 07/29/18 10:00 07/30/18 10:11 Lexapro - PO Not Given DAILY [facility] Fentanyl 50 mcg 07/28/18 13:56 Sublimaze Injection - IVPUSH [id number] PRN PAIN-PACU ORDER X 4 DOSES ONLY Heparin Sodium (Porcine) 5,000 unit 07/28/18 14:00 07/30/18 14:44 Heparin - SQ Not Given TID [facility] Piperacillin Sod/Tazobactam 50 mls @ 100 mls/hr 07/28/18 18:00 07/30/18 10:12 Sod 2.25 gm/ Dextrose IVPB Not Given Q8H-IV [facility] Protocol Memantine 5 mg 07/28/18 22:00 07/30/18 10:11 Namenda - PO Not Given BID [facility] Ondansetron HCl 4 mg 07/28/18 13:56 Zofran Injection IVPUSH Q6H PRN NAUSEA AND/OR VOMITING Pantoprazole Sodium 40 mg 07/29/18 11:30 07/30/18 10:11 Protonix Iv IVPUSH Not Given BID [facility] Promethazine HCl 12.5 mg 07/28/18 13:56 Phenergan Injection - IVPB Q6H PRN NAUSEA-FOR RESCUE AFTER 15 MIN Senna 2 tab 07/29/18 16:30 Senna - PO HS PRN CONSTIPATION Sevelamer Carbonate 800 mg 07/28/18 17:30 07/30/18 18:00 Renvela - PO 800 mg TIDCM [facility] Administration Trazodone HCl 50 mg 07/28/18 22:00 07/29/18 22:34 Desyrel - PO 50 mg HS [facility] Administration Zolpidem Tartrate 5 mg 07/28/18 22:00 07/29/18 22:34 Ambien - PO 5 mg HS PRN Administration INSOMNIA CBCD WBC 7.1 K/mm3 (4.0-10.0) 07/30/18 13:43 RBC 2.56 M/mm3 (4.00-5.60) L 07/30/18 13:43 Hgb 8.2 GM/dL (11.7-16.9) L 07/30/18 13:43 Hct 24.7 % (35.4-49) L 07/30/18 13:43 MCV 96.5 fl (80-96) H 07/30/18 13:43 MCHC 33.4 g/dl (32.0-35.9) 07/30/18 13:43 RDW 18.2 % (11.9-15.9) H 07/30/18 13:43 Plt Count 116 K/MM3 (134-434) L 07/30/18 13:43 MPV 10.2 fl (7.5-11.1) 07/30/18 13:43 CMP Sodium 136 mmol/L (136-145) 07/30/18 13:43 Potassium 4.0 mmol/L (3.5-5.1) 07/30/18 13:43 Chloride 96 mmol/L (98-107) L 07/30/18 13:43 Carbon Dioxide 26 mmol/L (21-32) 07/30/18 13:43 Anion Gap 14 MMOL/L (8-16) 07/30/18 13:43 BUN 41 mg/dL (7-18) H 07/30/18 13:43 Creatinine 6.1 mg/dL (0.55-1.3) H 07/30/18 13:43 Creat Clearance w eGFR 8.92 (>60) 07/30/18 13:43 Random Glucose 178 mg/dL (74-106) H 07/30/18 13:43 Calcium 9.1 mg/dL (8.5-10.1) 07/30/18 13:43 Total Bilirubin 0.5 mg/dL (0.2-1) 07/30/18 13:43 AST 27 U/L (15-37) 07/30/18 13:43 ALT 24 U/L (13-61) 07/30/18 13:43 Alkaline Phosphatase 113 U/L (45-117) 07/30/18 13:43 Total Protein 5.8 g/dl (6.4-8.2) L 07/30/18 13:43 Albumin 2.5 g/dl (3.4-5.0) L 07/30/18 13:43 ASSESSMENT AND PLAN: PVD: S/P angioplasty B/L lower ext He is on no AntiPLT and no AC in the setting of recent GIB and possibly peptic ulcer. At this time will start on low dose Will send stool for occult blood Will increase the dose of PPI to BID Will add sucralfate Will F/U with GI increased the atorvastatin dose to 40 mg qhs had fall and bleeding from the surgical site was evaluated by vascular nad no need for further intervention at this time. Heel ulcer: on the xray he had OM, will ask podiatry and MRI for OM evaluation. He is on antibiotics will ask ID pending results of the imaging and possible OM and results of the CXs pain management: will readdress need for fentanyl, started on bowel regimen. HX of GIB: will need for transfusion, will increase the dose of PPI to BID, is off Will discuss with GI for need for F/U EGD Afib: on rate control: not on AC due to GIB fall:no ICH and no FX. ESRD:on HD and sevelamer FC to be further discussed with the family
[2018-07-30] MEDS: traZODone HCL 50 MG TABLET (FP) PO SCH (21:55)
[2018-07-30] MEDS: ATORVASTATIN CA 40 MG TABLET (FP) PO SCH (21:56)
[2018-07-30] MEDS: ZOLPIDEM TARTRATE 5 MG TABLET PO PRN (22:00)
[2018-07-31] MEDS: ACETAMINOPHEN 325 MG TABLET (FP) PO PRN ×2 (02:13→13:03)
[2018-07-31] MEDS: ALPRAZolam 0.25 MG TABLET PO PRN (02:13)
[2018-07-31] MEDS ORDERED: DEXTROSE 5%-WATER - 50 ML IVPB ONE ×3 (02:17→17:02)
[2018-07-31] MEDS ORDERED: PIPERACILLIN/TAZOBACTAM 2.25 GM VIAL IVPB ONE ×3 (02:17→17:02)
[2018-07-31] MEDS: PIPERACILLIN/TAZOB 2.25 GM 2.25 GM in DEXTROSE 5%-WATER - 50 ML IVPB SCH ×3 (02:28→17:45)
[2018-07-31] MEDS ORDERED: MORPHINE SULFATE 2 MG/ML VIAL IM ONE (02:54)
--- NOTE | 2018-07-31 02:55 | HOSP ---
Physical Examination Vital Signs: Vital Signs Temperature 97.8 F 07/31/18 01:53 Pulse Rate 103 H 07/31/18 01:53 Respiratory Rate 18 07/31/18 01:53 Blood Pressure 149/79 07/31/18 01:53 O2 Sat by Pulse Oximetry (%) 96 07/30/18 22:00 Labs: CBC, BMP 07/30/18 13:43 07/30/18 13:43 <Bladimir Staples - Last Filed: 07/31/18 05:58> Vital Signs: Vital Signs Temperature 98.2 F 08/05/18 14:23 Pulse Rate 82 08/05/18 14:23 Respiratory Rate 18 08/05/18 14:23 Blood Pressure 122/50 L 08/05/18 14:23 O2 Sat by Pulse Oximetry (%) 92 L 08/05/18 09:00 Labs: CBC, BMP 08/04/18 05:35 08/04/18 05:35 <Almas Covington - Last Filed: 08/12/18 20:37> Hospitalist Encounter Assessment: 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 Patient had been seen by podiatry earlier today who had changed the dressing. Dressing was removed and pressure dressing applied with RN. Bleeding was controlled with new compression bandage. Will follow up with surgery and podiatry to evaluate the wound. <Bladimir Staples - Last Filed: 07/31/18 05:58> Recommendations/Interventions: Was present for all vital parts of encounter; plan discussed with me. Agree with above as documented by the resident. <Almas Covington - Last Filed: 08/12/18 20:37> Visit type - Emergency Visit Emergency Visit: Yes ED Registration Date: 07/22/18 Care time: The patient presented to the Emergency Department on the above date and was hospitalized for further evaluation of their emergent condition. - New Patient This patient is new to me today: No - Critical Care Critical Care patient: No <Bladimir Staples - Last Filed: 07/31/18 05:58>
[2018-07-31] MEDS: HEPARIN NA (PORCINE) 5,000 UNITS/ML 1ML VIAL SQ SCH ×3 (05:57→21:20)
[2018-07-31 08:59] LABS: HEMATOCRIT 23.5 % (35.4-49); HEMOGLOBIN 7.2 GM/dL (11.7-16.9); MCH 30.3 pg (25.7-33.7); MCHC 30.7 g/dl (32.0-35.9); MEAN CELL VOLUME 98.7 fl (80-96); MEAN PLT VOLUME 9.6 fl (7.5-11.1); PLATELET COUNT 106 K/MM3 (134-434); RBC 2.38 M/mm3 (4.00-5.60); RDW 18.5 % (11.9-15.9); WHITE BLOOD COUNT 6.8 K/mm3 (4.0-10.0)
[2018-07-31 09:25] LABS: ALBUMIN 2.3 g/dl (3.4-5.0); ANION GAP 7 MMOL/L (8-16); BILIRUBIN,TOTAL 0.5 mg/dL (0.2-1); BLOOD UREA NITROGEN 24 mg/dL (7-18); CALCIUM 8.8 mg/dL (8.5-10.1); CHLORIDE 100 mmol/L (98-107); CO2 33 mmol/L (21-32); CREATININE 4.3 mg/dL (0.55-1.3); GLUCOSE,RANDOM 91 mg/dL (74-106); POTASSIUM 3.4 mmol/L (3.5-5.1); SODIUM 140 mmol/L (136-145); TOT PROT 5.3 g/dl (6.4-8.2)
[2018-07-31 09:26] LABS: ALK PHOS 98 U/L (45-117); SGOT/AST 24 U/L (15-37); SGPT/ALT 22 U/L (13-61)
[2018-07-31] MEDS: SEVELAMER CARBONATE 800 MG TAB (FP) PO SCH ×3 (09:46→17:45)
[2018-07-31] MEDS: PANTOPRAZOLE SODIUM 40 MG VIAL IVPUSH SCH ×2 (09:47→21:20)
[2018-07-31] MEDS: ATENOLOL 50 MG TABLET (FP) PO SCH (11:59)
[2018-07-31] MEDS: MEMANTINE HCL 5 MG TABLET (UD) PO SCH ×2 (12:00→21:20)
[2018-07-31] MEDS: ESCITALOPRAM OXALATE 10 MG TABLET (FP) PO SCH (12:00)
[2018-07-31] MEDS: COLLAGENASE CLOSTRIDIUM HIST. 30 GRAMS TUBE TP SCH (12:06)
[2018-07-31] MEDS: ASPIRIN COATED 81 MG TABLET.EC PO SCH (12:06)
--- NOTE | 2018-07-31 13:30 | PN ---
Progress Note (short form) - Note Progress Note: Renal follow up for ESRD on HD Pt seen and examined at he bedside no acute complaints did not sleep well last night Vital Signs Temperature 98.9 F 07/31/18 06:00 Pulse Rate 88 07/31/18 09:00 Respiratory Rate 18 07/31/18 09:00 Blood Pressure 130/56 L 07/31/18 09:00 O2 Sat by Pulse Oximetry (%) 96 07/30/18 22:00 NAD no LE edema CBC, BMP 07/31/18 08:15 07/31/18 06:00 Current Medications Acetaminophen (Tylenol -) 650 mg PO Q6H PRN PRN Reason: PAIN LEVEL 1-5 Last Admin: 07/31/18 13:03 Dose: 650 mg Alprazolam (Xanax -) 0.5 mg PO BID PRN PRN Reason: ANXIETY Last Admin: 07/31/18 02:13 Dose: 0.5 mg Aspirin (Ecotrin -) 81 mg PO DAILY [facility] Last Admin: 07/31/18 12:06 Dose: Not Given Atenolol (Tenormin -) 50 mg PO DAILY [facility] Last Admin: 07/31/18 11:59 Dose: 50 mg Atorvastatin Calcium (Lipitor -) 40 mg PO HS [facility] Last Admin: 07/30/18 21:56 Dose: 40 mg Collagenase (Santyl -) 1 applic TP DAILY [facility]; Protocol Last Admin: 07/31/18 12:06 Dose: Not Given Escitalopram Oxalate (Lexapro -) 10 mg PO DAILY [facility] Last Admin: 07/31/18 12:00 Dose: 10 mg Fentanyl (Sublimaze Injection -) 50 mcg IVPUSH [id number] PRN PRN Reason: PAIN-PACU ORDER X 4 DOSES ONLY Heparin Sodium (Porcine) (Heparin -) 5,000 unit SQ TID [facility] Last Admin: 07/31/18 05:57 Dose: Not Given Piperacillin Sod/Tazobactam (Sod 2.25 gm/ Dextrose) 50 mls @ 100 mls/hr IVPB Q8H-IV [facility]; Protocol Last Admin: 07/31/18 09:53 Dose: 100 mls/hr Memantine (Namenda -) 5 mg PO BID [facility] Last Admin: 07/31/18 12:00 Dose: 5 mg Ondansetron HCl (Zofran Injection) 4 mg IVPUSH Q6H PRN PRN Reason: NAUSEA AND/OR VOMITING Pantoprazole Sodium (Protonix Iv) 40 mg IVPUSH BID [facility] Last Admin: 07/31/18 09:47 Dose: 40 mg Promethazine HCl (Phenergan Injection -) 12.5 mg IVPB Q6H PRN PRN Reason: NAUSEA-FOR RESCUE AFTER 15 MIN Senna (Senna -) 2 tab PO HS PRN PRN Reason: CONSTIPATION Sevelamer Carbonate (Renvela -) 800 mg PO TIDCM [facility] Last Admin: 07/31/18 11:59 Dose: 800 mg Trazodone HCl (Desyrel -) 50 mg PO HS [facility] Last Admin: 07/30/18 21:55 Dose: 50 mg Zolpidem Tartrate (Ambien -) 5 mg PO HS PRN PRN Reason: INSOMNIA Last Admin: 07/30/18 22:00 Dose: 5 mg 78 year old gentleman with history of ESRD on HD (MWF), Hypertension, Colon Ca s /p resection, Afib, PVD who presented with non-healing lower leg wounds. #Non-healing LE wounds #ESRD on HD #Anemia #Renal Osteodystrophy for PRBC transfusion today will trend CBC and given additional PRBC with HD tomorrow as needed will give high dose DARON surgical follow up of heel wound Armen Machado DO
--- NOTE | 2018-07-31 15:01 | PN ---
Physical Exam: SUBJECTIVE: Patient seen and examined, last night he had another episode of bleeding from the R heel and it was packed and further pressure placed on the wound. ASA is withheld at this time. Surgery PA has been paged pending their response. OBJECTIVE: Vital Signs Period Temp Pulse Resp BP Sys/Medina Pulse Ox Last 24 Hr 97.8 F-98.9 F 60-103 18-18 117-149/46-82 96 GENERAL: is in mild distress due to the pain in both legs. the dressing over the heel wound is blood tinged. He has been encouraged to not stand up on foot CVS:S1S2 CTAB Abd:BS+ NT/ND EXT: the heel wound is under dressing and the dressing is blood tinged. 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 Laboratory Results - last 24 hr 07/31/18 07/31/18 06:00 08:15 WBC 6.8 RBC 2.38 L Hgb 7.2 L Hct 23.5 L MCV 98.7 H MCH 30.3 MCHC 30.7 L RDW 18.5 H Plt Count 106 L MPV 9.6 Sodium 140 Potassium 3.4 L Chloride 100 Carbon Dioxide 33 H Anion Gap 7 L BUN 24 H Creatinine 4.3 H Creat Clearance w eGFR 13.36 Random Glucose 91 Calcium 8.8 Total Bilirubin 0.5 AST 24 ALT 22 Alkaline Phosphatase 98 Total Protein 5.3 L Albumin 2.3 L Active Medications Generic Name Dose Route Start Last Admin Trade Name Freq PRN Reason Stop Dose Admin Acetaminophen 650 mg 07/28/18 13:56 07/31/18 13:03 Tylenol - PO 650 mg Q6H PRN Administration PAIN LEVEL 1-5 Alprazolam 0.5 mg 07/28/18 13:56 07/31/18 02:13 Xanax - PO 0.5 mg BID PRN Administration ANXIETY Aspirin 81 mg 07/29/18 11:30 07/31/18 12:06 Ecotrin - PO Not Given DAILY [facility] Atenolol 50 mg 07/29/18 10:00 07/31/18 11:59 Tenormin - PO 50 mg DAILY [facility] Administration Atorvastatin Calcium 40 mg 07/29/18 22:00 07/30/18 21:56 Lipitor - PO 40 mg HS [facility] Administration Collagenase 1 applic 07/29/18 10:00 07/31/18 12:06 Santyl - TP Not Given DAILY [facility] Protocol Escitalopram Oxalate 10 mg 07/29/18 10:00 07/31/18 12:00 Lexapro - PO 10 mg DAILY [facility] Administration Fentanyl 50 mcg 07/28/18 13:56 Sublimaze Injection - IVPUSH [id number] PRN PAIN-PACU ORDER X 4 DOSES ONLY Heparin Sodium (Porcine) 5,000 unit 07/28/18 14:00 07/31/18 13:41 Heparin - SQ Not Given TID [facility] Piperacillin Sod/Tazobactam 50 mls @ 100 mls/hr 07/28/18 18:00 07/31/18 09:53 Sod 2.25 gm/ Dextrose IVPB 100 mls/hr Q8H-IV [facility] Administration Protocol Memantine 5 mg 07/28/18 22:00 07/31/18 12:00 Namenda - PO 5 mg BID [facility] Administration Ondansetron HCl 4 mg 07/28/18 13:56 Zofran Injection IVPUSH Q6H PRN NAUSEA AND/OR VOMITING Pantoprazole Sodium 40 mg 07/29/18 11:30 07/31/18 09:47 Protonix Iv IVPUSH 40 mg BID [facility] Administration Promethazine HCl 12.5 mg 07/28/18 13:56 Phenergan Injection - IVPB Q6H PRN NAUSEA-FOR RESCUE AFTER 15 MIN Senna 2 tab 07/29/18 16:30 Senna - PO HS PRN CONSTIPATION Sevelamer Carbonate 800 mg 07/28/18 17:30 07/31/18 11:59 Renvela - PO 800 mg TIDCM [facility] Administration Trazodone HCl 50 mg 07/28/18 22:00 07/30/18 21:55 Desyrel - PO 50 mg HS [facility] Administration Zolpidem Tartrate 5 mg 07/28/18 22:00 07/30/18 22:00 Ambien - PO 5 mg HS PRN Administration INSOMNIA ASSESSMENT/PLAN:
[2018-07-31 17:27] LABS: BASO % 1.1 % (0-2.0); EOS % 2.1 % (0-4.5); HEMATOCRIT 24.6 % (35.4-49); HEMOGLOBIN 8.2 GM/dL (11.7-16.9); LYMPH % 10.3 % (8-40); MCH 32.5 pg (25.7-33.7); MCHC 33.5 g/dl (32.0-35.9); MEAN CELL VOLUME 97.2 fl (80-96); MEAN PLT VOLUME 10.2 fl (7.5-11.1); MONO % 15.5 % (3.8-10.2); PLATELET COUNT 125 K/MM3 (134-434); RBC 2.54 M/mm3 (4.00-5.60); WHITE BLOOD COUNT 7.3 K/mm3 (4.0-10.0)
[2018-07-31] MEDS: FERROUS SO4 300 MG/5 ML ORAL SOLN UNIT DOSE CUPS PO SCH (17:45)
[2018-07-31 18:01] LABS: ANION GAP 9 MMOL/L (8-16); BLOOD UREA NITROGEN 28 mg/dL (7-18); CALCIUM 8.7 mg/dL (8.5-10.1); CHLORIDE 100 mmol/L (98-107); CO2 31 mmol/L (21-32); CREATININE 4.9 mg/dL (0.55-1.3); GLUCOSE,RANDOM 109 mg/dL (74-106); POTASSIUM 3.7 mmol/L (3.5-5.1); SODIUM 141 mmol/L (136-145)
[2018-07-31] MEDS ORDERED: oxyCODONE HCL 5 MG TABLET PO ONE (18:08)
[2018-07-31] MEDS: traZODone HCL 50 MG TABLET (FP) PO SCH (21:20)
[2018-07-31] MEDS: ATORVASTATIN CA 40 MG TABLET (FP) PO SCH (21:20)
[2018-07-31] MEDS: ZOLPIDEM TARTRATE 5 MG TABLET PO PRN (21:20)
[2018-08-01] MEDS ORDERED: PIPERACILLIN/TAZOBACTAM 2.25 GM VIAL IVPB ONE ×3 (01:31→19:03)
[2018-08-01] MEDS ORDERED: DEXTROSE 5%-WATER - 50 ML IVPB ONE ×3 (01:31→19:03)
[2018-08-01] MEDS: ALPRAZolam 0.25 MG TABLET PO PRN ×2 (01:40→19:38)
[2018-08-01] MEDS: PIPERACILLIN/TAZOB 2.25 GM 2.25 GM in DEXTROSE 5%-WATER - 50 ML IVPB SCH ×3 (01:40→19:26)
[2018-08-01] MEDS: HEPARIN NA (PORCINE) 5,000 UNITS/ML 1ML VIAL SQ SCH ×3 (05:11→21:32)
[2018-08-01] MEDS: MEMANTINE HCL 5 MG TABLET (UD) PO SCH ×2 (09:58→21:31)
[2018-08-01] MEDS: FERROUS SO4 300 MG/5 ML ORAL SOLN UNIT DOSE CUPS PO SCH ×3 (09:59→19:26)
[2018-08-01] MEDS: SEVELAMER CARBONATE 800 MG TAB (FP) PO SCH ×3 (09:59→19:26)
[2018-08-01] MEDS: PANTOPRAZOLE SODIUM 40 MG VIAL IVPUSH SCH ×2 (10:00→21:31)
[2018-08-01] MEDS: ATENOLOL 50 MG TABLET (FP) PO SCH (10:01)
[2018-08-01] MEDS: ACETAMINOPHEN 325 MG TABLET (FP) PO PRN ×3 (10:01→21:31)
--- NOTE | 2018-08-01 10:02 | PN ---
Physical Exam: SUBJECTIVE: Patient seen and examined OBJECTIVE: Vital Signs Period Temp Pulse Resp BP Sys/Medina Pulse Ox Last 24 Hr 98.8 F-98.8 F 88-97 18-20 118-123/60-75 97 in no distress today, he is more awake and in less distress at this time.a&ox3 There have been no more bleeding from the heel wound MMM No ocular discharge No nasal discharge CVS:S1S2, + murmur for AVF CTAB Abd: BS+ NT/ND ext: No edema has the pressure dressing on the R heel and there has not been any bleeding since yesterday morning and the dressing looks clean. Laboratory Results - last 24 hr 07/31/18 07/31/18 17:20 17:20 WBC 7.3 RBC 2.54 L Hgb 8.2 L Hct 24.6 L MCV 97.2 H MCH 32.5 MCHC 33.5 RDW 18.0 H Plt Count 125 L MPV 10.2 Absolute Neuts (auto) 5.2 Neutrophils % 71.0 Lymphocytes % 10.3 Monocytes % 15.5 H Eosinophils % 2.1 D Basophils % 1.1 Nucleated RBC % 0 Sodium 141 Potassium 3.7 Chloride 100 Carbon Dioxide 31 Anion Gap 9 BUN 28 H Creatinine 4.9 H Creat Clearance w eGFR 11.49 Random Glucose 109 H Calcium 8.7 Active Medications Generic Name Dose Route Start Last Admin Trade Name Freq PRN Reason Stop Dose Admin Acetaminophen 650 mg 07/28/18 13:56 07/31/18 13:03 Tylenol - PO 650 mg Q6H PRN Administration PAIN LEVEL 1-5 Alprazolam 0.5 mg 07/28/18 13:56 08/01/18 01:40 Xanax - PO 0.5 mg BID PRN Administration ANXIETY Aspirin 81 mg 07/29/18 11:30 07/31/18 12:06 Ecotrin - PO Not Given DAILY [facility] Atenolol 50 mg 07/29/18 10:00 07/31/18 11:59 Tenormin - PO 50 mg DAILY [facility] Administration Atorvastatin Calcium 40 mg 07/29/18 22:00 07/31/18 21:20 Lipitor - PO 40 mg HS [facility] Administration Collagenase 1 applic 07/29/18 10:00 07/31/18 12:06 Santyl - TP Not Given DAILY COUNTS INCLUDE 234 BEDS AT THE [facility] Protocol Epoetin Arsalan 20,000 unit 08/01/18 08:54 Epogen - IVPUSH 08/01/18 08:55 ONCE ONE Escitalopram Oxalate 10 mg 07/29/18 10:00 07/31/18 12:00 Lexapro - PO 10 mg DAILY [facility] Administration Ferrous Sulfate 300 mg 07/31/18 17:30 07/31/18 17:45 Feosol PO 300 mg TIDCM [facility] Administration Heparin Sodium (Porcine) 5,000 unit 07/28/18 14:00 08/01/18 05:11 Heparin - SQ Not Given TID [facility] Piperacillin Sod/Tazobactam 50 mls @ 100 mls/hr 07/28/18 18:00 08/01/18 01:40 Sod 2.25 gm/ Dextrose IVPB 100 mls/hr Q8H-IV [facility] Administration Protocol Sodium Chloride 250 mls @ 3,000 mls/hr 08/01/18 08:54 Normal Saline - IV 08/02/18 08:54 PRN PRN Hypotension during Dialysis Memantine 5 mg 07/28/18 22:00 07/31/18 21:20 Namenda - PO 5 mg BID [facility] Administration Ondansetron HCl 4 mg 07/28/18 13:56 Zofran Injection IVPUSH Q6H PRN NAUSEA AND/OR VOMITING Pantoprazole Sodium 40 mg 07/29/18 11:30 07/31/18 21:20 Protonix Iv IVPUSH 40 mg BID [facility] Administration Promethazine HCl 12.5 mg 07/28/18 13:56 Phenergan Injection - IVPB Q6H PRN NAUSEA-FOR RESCUE AFTER 15 MIN Senna 2 tab 07/29/18 16:30 Senna - PO HS PRN CONSTIPATION Sevelamer Carbonate 800 mg 07/28/18 17:30 07/31/18 17:45 Renvela - PO 800 mg TIDCM [facility] Administration Trazodone HCl 50 mg 07/28/18 22:00 07/31/18 21:20 Desyrel - PO 50 mg HS [facility] Administration ASSESSMENT/PLAN: PVD: S/P angioplasty B/L lower ext He was on no AntiPLT and no AC in the setting of recent GIB and possibly peptic ulcer. been started on 81 mg po aspirin since 07/30 Will send stool for occult blood have increased the dose of PPI to BID have added sucralfate Will F/U with GI increased the atorvastatin dose to 40 mg qhs bleeding from the heel ulcer has been stopped will discuss the management plan with surgery on Thursday as it episodically bleeds and should be controlled better for DC. Heel ulcer: on the xray he had OM, being evaluated by podiatry and is to get 3 phasic bone scan on Thursday. He is on antibiotics will ask ID pending results of the imaging and possible OM and results of the CXs Pain management: will readdress need for fentanyl, started on bowel regimen. HX of GIB: increased the dose of PPI to BID, is off Will discuss with GI for need for F/U EGD Afib: on rate control: not on AC due to GIB fall:no ICH and no FX. ESRD:on HD and sevelamer FC to be further discussed with the family Visit type - Emergency Visit Emergency Visit: No - New Patient This patient is new to me today: No - Critical Care Critical Care patient: No - Discharge Referral Referred to [facility] No
[2018-08-01 10:12] LABS: HEMATOCRIT 24.8 % (35.4-49); MCH 31.8 pg (25.7-33.7); MCHC 32.4 g/dl (32.0-35.9); MEAN CELL VOLUME 98.2 fl (80-96); PLATELET COUNT 125 K/MM3 (134-434); RBC 2.52 M/mm3 (4.00-5.60); RDW 18.2 % (11.9-15.9)
--- NOTE | 2018-08-01 10:13 | PN ---
Progress Note (short form) - Note Progress Note: Renal follow up for ESRD on HD Pt seen and examined at he bedside has pain in his heel no fever, or chills blood transfusion was held off yesterday as repeat Hgb was improved Vital Signs Temperature 98.8 F 08/01/18 05:40 Pulse Rate 97 H 08/01/18 05:40 Respiratory Rate 20 08/01/18 05:40 Blood Pressure 118/73 08/01/18 05:40 O2 Sat by Pulse Oximetry (%) 97 07/31/18 21:00 NAD no LE edema Current Medications Acetaminophen (Tylenol -) 650 mg PO Q6H PRN PRN Reason: PAIN LEVEL 1-5 Last Admin: 08/01/18 10:01 Dose: 650 mg Alprazolam (Xanax -) 0.5 mg PO BID PRN PRN Reason: ANXIETY Last Admin: 08/01/18 01:40 Dose: 0.5 mg Aspirin (Ecotrin -) 81 mg PO DAILY MARCUS Last Admin: 07/31/18 12:06 Dose: Not Given Atenolol (Tenormin -) 50 mg PO DAILY MARCUS Last Admin: 08/01/18 10:01 Dose: 50 mg Atorvastatin Calcium (Lipitor -) 40 mg PO HS MARCUS Last Admin: 07/31/18 21:20 Dose: 40 mg Collagenase (Santyl -) 1 applic TP DAILY MARCUS; Protocol Last Admin: 07/31/18 12:06 Dose: Not Given Epoetin Arsalan (Epogen -) 20,000 unit IVPUSH ONCE ONE Stop: 08/01/18 08:55 Escitalopram Oxalate (Lexapro -) 10 mg PO DAILY MARCUS Last Admin: 07/31/18 12:00 Dose: 10 mg Ferrous Sulfate (Feosol) 300 mg PO TIDCM MARCUS Last Admin: 08/01/18 09:59 Dose: 300 mg Heparin Sodium (Porcine) (Heparin -) 5,000 unit SQ TID MARCUS Last Admin: 08/01/18 05:11 Dose: Not Given Piperacillin Sod/Tazobactam (Sod 2.25 gm/ Dextrose) 50 mls @ 100 mls/hr IVPB Q8H-IV MARCUS; Protocol Last Admin: 08/01/18 01:40 Dose: 100 mls/hr Sodium Chloride (Normal Saline -) 250 mls @ 3,000 mls/hr IV PRN PRN PRN Reason: Hypotension during Dialysis Stop: 08/02/18 08:54 Memantine (Namenda -) 5 mg PO BID [facility] Last Admin: 08/01/18 09:58 Dose: 5 mg Ondansetron HCl (Zofran Injection) 4 mg IVPUSH Q6H PRN PRN Reason: NAUSEA AND/OR VOMITING Pantoprazole Sodium (Protonix Iv) 40 mg IVPUSH BID [facility] Last Admin: 08/01/18 10:00 Dose: 40 mg Promethazine HCl (Phenergan Injection -) 12.5 mg IVPB Q6H PRN PRN Reason: NAUSEA-FOR RESCUE AFTER 15 MIN Senna (Senna -) 2 tab PO HS PRN PRN Reason: CONSTIPATION Sevelamer Carbonate (Renvela -) 800 mg PO TIDCM [facility] Last Admin: 08/01/18 09:59 Dose: 800 mg Trazodone HCl (Desyrel -) 50 mg PO HS [facility] Last Admin: 07/31/18 21:20 Dose: 50 mg 78 year old gentleman with history of ESRD on HD (MWF), Hypertension, Colon Ca s /p resection, Afib, PVD who presented with non-healing lower leg wounds. #Non-healing LE wounds #ESRD on HD #Anemia #Renal Osteodystrophy HD today with UF as tolerated will tranfuse prbc if hgb < 8 Epogen 20k to be given with HD today Continue phos binder pain control continue abx as per SANG Machado DO
--- NOTE | 2018-08-01 10:31 | PN ---
Progress Note (short form) - Note Progress Note: Podiatry F/U: Seen/evaluated at bedside, NAD. a bit lethargic, denies F/V/N/C/SOB/CP. AFebrile. S/p RLE revascularization and debridement of lower leg PVD ulcer with Vascular Sx. Patient had issue of bleeding from operative site which caused drop in H/H. Now stabilized. Patient complains of persistent pain to the back of the leg and heel. MILAN: R foot: dressing C/D/I, no active bleeding. Posterior leg ulcer with fibrogranular base, achilles tendon debridement, no bone exposed, no purulence, no fluctuance, no streaking cellulitis, no active signs of infection. Significant tenderness to palpation. No active bleeding, minimal oozing noted. No ischemic changes to the ulcer bed. Pain with ROM and palpation. Imp: 78 year old male s/p R lower leg debridement including AChilles tendon and RLE revascularization 1. Santyl + W2D dressing 2. Offloading measures 3. Bone scan pending 4. If (+) for OM, would treat with IV abx. Not sure if bone biopsy will benefit the patient at this point. There is no exposed calcaneus present. 5. Please don't hesitate to call if you need further assistance. Ivon Campbell DPM
[2018-08-01 10:32] LABS: ALBUMIN 2.4 g/dl (3.4-5.0); ALK PHOS 105 U/L (45-117); ANION GAP 9 MMOL/L (8-16); BILIRUBIN,TOTAL 0.6 mg/dL (0.2-1); BLOOD UREA NITROGEN 38 mg/dL (7-18); CALCIUM 8.9 mg/dL (8.5-10.1); CHLORIDE 100 mmol/L (98-107); CO2 32 mmol/L (21-32); CREATININE 5.9 mg/dL (0.55-1.3); GLUCOSE,RANDOM 137 mg/dL (74-106); PHOSPHOROUS 4.2 mg/dL (2.5-4.9); POTASSIUM 3.6 mmol/L (3.5-5.1); SGOT/AST 19 U/L (15-37); SGPT/ALT 21 U/L (13-61); SODIUM 140 mmol/L (136-145); TOT PROT 5.6 g/dl (6.4-8.2)
[2018-08-01] MEDS: COLLAGENASE CLOSTRIDIUM HIST. 30 GRAMS TUBE TP SCH (11:00)
[2018-08-01] MEDS: ASPIRIN COATED 81 MG TABLET.EC PO SCH (12:20)
[2018-08-01] MEDS: ESCITALOPRAM OXALATE 10 MG TABLET (FP) PO SCH (12:20)
[2018-08-01] MEDS ORDERED: SODIUM CHLORIDE 250 ML IV PRN (16:11)
[2018-08-01] MEDS ORDERED: EPOETIN ALFA 20,000 UNIT/1 ML VIAL IVPUSH ONE (16:15)
[2018-08-01] MEDS: traZODone HCL 50 MG TABLET (FP) PO SCH (21:31)
[2018-08-01] MEDS: ATORVASTATIN CA 40 MG TABLET (FP) PO SCH (21:31)
[2018-08-02] MEDS ORDERED: PIPERACILLIN/TAZOBACTAM 2.25 GM VIAL IVPB ONE ×3 (02:30→17:30)
[2018-08-02] MEDS ORDERED: DEXTROSE 5%-WATER - 50 ML IVPB ONE ×3 (02:30→17:31)
[2018-08-02] MEDS: PIPERACILLIN/TAZOB 2.25 GM 2.25 GM in DEXTROSE 5%-WATER - 50 ML IVPB SCH ×3 (02:43→17:32)
[2018-08-02] MEDS: HEPARIN NA (PORCINE) 5,000 UNITS/ML 1ML VIAL SQ SCH ×4 (05:05→21:31)
[2018-08-02] MEDS: FERROUS SO4 300 MG/5 ML ORAL SOLN UNIT DOSE CUPS PO SCH ×3 (08:53→17:32)
[2018-08-02] MEDS: SEVELAMER CARBONATE 800 MG TAB (FP) PO SCH ×3 (08:53→17:32)
[2018-08-02] MEDS: ATENOLOL 50 MG TABLET (FP) PO SCH (10:25)
[2018-08-02] MEDS: ASPIRIN COATED 81 MG TABLET.EC PO SCH (10:26)
[2018-08-02] MEDS: MEMANTINE HCL 5 MG TABLET (UD) PO SCH ×2 (10:26→21:31)
[2018-08-02] MEDS: ESCITALOPRAM OXALATE 10 MG TABLET (FP) PO SCH (10:26)
[2018-08-02] MEDS: ACETAMINOPHEN 325 MG TABLET (FP) PO PRN ×2 (10:27→18:19)
[2018-08-02] MEDS: PANTOPRAZOLE SODIUM 40 MG VIAL IVPUSH SCH ×2 (10:47→21:31)
--- NOTE | 2018-08-02 11:15 | PN ---
Physical Exam: SUBJECTIVE: Patient seen and examined at bedside this morning. No acute overnight events. Patient denies acute complaints. No bleeding at right lower extremity. Discussed triple phase bone scan, and obtained consent for triple phase scan to rule out osteomyelitis, and possible blood transfusion if his Hb drops below 8.0 with installation and repair technician recommendations, from daughter Claudette Bear who is health care proxy . OBJECTIVE: Vital Signs Period Temp Pulse Resp BP Sys/Medina Pulse Ox Last 24 Hr 97.3 F-98.7 F 56-100 18-24 98-135/38-92 96 GENERAL: The patient is awake, alert, and fully oriented, in no acute distress. HEAD: Normal with no signs of trauma. EYES: PERRL, extraocular movements intact, sclera anicteric, conjunctiva clear. ENT: Oropharynx clear without exudates, moist mucous membranes. NECK: Trachea midline, supple. LUNGS: Breath sounds equal, clear to auscultation bilaterally, no wheezes, no crackles, no accessory muscle use. HEART: Irregular rate and rhythm, S1, S2 without murmur, rub or gallop. ABDOMEN: Soft, nontender, nondistended, normoactive bowel sounds, no guarding, no rebound tenderness. Reducible umbilical hernia noted. EXTREMITIES: 2+ radial pulses b/l, 1+ dorsalis pedis pulses b/l. 1+ pitting edema b/l lower extremities. NEUROLOGICAL: Cranial nerves II through XII grossly intact. Normal speech. PSYCH: Normal mood, normal affect upon my encounter today. SKIN: Right heel wound overlying Achilles tendon. Bandage in place, clean, dry. Nondraining, no active bleeding, tender to palpation. Left first and second distal toes gangrenous, in addition to dorsal aspect third and fourth toes. Sensation intact until area of gangrenous toes, and right heel wound. Laboratory Results - last 24 hr 08/01/18 09:44 Blood Type A POSITIVE Antibody Screen Negative Crossmatch See Detail Active Medications Generic Name Dose Route Start Last Admin Trade Name Freq PRN Reason Stop Dose Admin Acetaminophen 650 mg 07/28/18 13:56 08/02/18 10:27 Tylenol - PO 650 mg Q6H PRN Administration PAIN LEVEL 1-5 Alprazolam 0.5 mg 07/28/18 13:56 08/01/18 19:38 Xanax - PO 0.5 mg BID PRN Administration ANXIETY Aspirin 81 mg 07/29/18 11:30 08/02/18 10:26 Ecotrin - PO 81 mg DAILY MARCUS Administration Atenolol 50 mg 07/29/18 10:00 08/01/18 10:01 Tenormin - PO 50 mg DAILY MARCUS Administration Atorvastatin Calcium 40 mg 07/29/18 22:00 08/01/18 21:31 Lipitor - PO 40 mg HS MARCUS Administration Collagenase 1 applic 07/29/18 10:00 08/01/18 11:00 Santyl - TP 1 applic DAILY MARCUS Administration Protocol Escitalopram Oxalate 10 mg 07/29/18 10:00 08/02/18 10:26 Lexapro - PO 10 mg DAILY MARCUS Administration Ferrous Sulfate 300 mg 07/31/18 17:30 08/02/18 08:53 Feosol PO 300 mg TIDCM MARCUS Administration Heparin Sodium (Porcine) 5,000 unit 07/28/18 14:00 08/02/18 05:05 Heparin - SQ Not Given TID MARCUS Piperacillin Sod/Tazobactam 50 mls @ 100 mls/hr 07/28/18 18:00 08/02/18 10:26 Sod 2.25 gm/ Dextrose IVPB 100 mls/hr Q8H-IV MARCUS Administration Protocol Sodium Chloride 250 mls @ 3,000 mls/hr 08/01/18 16:11 Normal Saline - IV 08/02/18 16:10 PRN PRN Hypotension during Dialysis Memantine 5 mg 07/28/18 22:00 08/02/18 10:26 Namenda - PO 5 mg BID MARCUS Administration Ondansetron HCl 4 mg 07/28/18 13:56 Zofran Injection IVPUSH Q6H PRN NAUSEA AND/OR VOMITING Pantoprazole Sodium 40 mg 07/29/18 11:30 08/02/18 10:47 Protonix Iv IVPUSH 40 mg BID MARCUS Administration Promethazine HCl 12.5 mg 07/28/18 13:56 Phenergan Injection - IVPB Q6H PRN NAUSEA-FOR RESCUE AFTER 15 MIN Senna 2 tab 07/29/18 16:30 Senna - PO HS PRN CONSTIPATION Sevelamer Carbonate 800 mg 07/28/18 17:30 08/02/18 08:53 Renvela - PO 800 mg TIDCM MARCUS Administration Trazodone HCl 50 mg 07/28/18 22:00 08/01/18 21:31 Desyrel - PO 50 mg HS MARCUS Administration ASSESSMENT/PLAN: Patient is an 78 year old male with history of hypertension, Afib (currently not on anticoagulation), ESRD on HD, colon CA s/p resection, renal osteodystrophy, peripheral arterial disease, dementia presents from [facility] with complaint of lower extremity wounds Bilateral lower extremity wounds -Patient is POD #5 s/p right femoral artery revascularization with arthrectomy and angioplasty, and left extrernal iliac artery angioplasty. POD #7 s/p right heel debridement. -F/U vascular surgery recommendations. -Zosyn 2.25 grams Q8H. -ID consult (Dr. Scott) appreciated. -CTA lower extremities results noted. -F/U triple phase bone scan to rule out osteomyelitis. -Podiatry consult (Dr. De León, Dr. Campbell) appreciated. ESRD on HD -Nephrology consult (Dr. Machado) appreciated. -Patient had HD yesterday with 2.5KG fluid removal. Tolerated well. Afib -Patient is currently not on anticoagulation due to due to GI bleed on prior recent admission. Has been on Eliquis and Coumadin in the past. -Currently rate controlled Coronary artery disease -Reinstate Aspirin 81mg PO daily. Discussed with respiratory therapy assistant Dr. Beebe. -Monitor Hb/ Hct closely. Hypertension -Atenolol 50mg PO daily Hyperlipidema -Atorvastatin 10mg PO daily Anxiety -Lexapro 10mg PO daily -Xanax 0.5mg PO BID PRN Dementia -Memantine 5mg PO BID -Renvela 800mg PP TID Insomnia -Trazodone 50mg PO QHS -Zolpidem 5mg PO HS PRN FEN -No IV fluids -Follow CMP -Sodium, renal controlled diet Prophylaxis -Heparin 5000u subq TID -Protonix 40mg IV BID Disposition: Continue care in medical surgical floor. Visit type - Emergency Visit Emergency Visit: Yes ED Registration Date: 07/22/18 Care time: The patient presented to the Emergency Department on the above date and was hospitalized for further evaluation of their emergent condition. - New Patient This patient is new to me today: No - Critical Care Critical Care patient: No - Discharge Referral Referred to [facility] Med P.C.: No
--- NOTE | 2018-08-02 11:35 | PN ---
Progress Note (short form) - Note Progress Note: Renal follow up for ESRD on HD Pt seen and examined at he bedside has pain in heel but is helped with pain meds no sob, cp, abd pain s/p dialysis yesterday, tolerated it well Vital Signs Temperature 97.3 F L 08/02/18 10:08 Pulse Rate 90 08/02/18 10:08 Respiratory Rate 24 H 08/02/18 10:08 Blood Pressure 98/40 L 08/02/18 10:08 O2 Sat by Pulse Oximetry (%) 96 08/01/18 21:00 NAD awake and alert no LE edema right heel in dressing, clean CBC, BMP 08/01/18 09:44 08/01/18 09:44 Current Medications Acetaminophen (Tylenol -) 650 mg PO Q6H PRN PRN Reason: PAIN LEVEL 1-5 Last Admin: 08/02/18 10:27 Dose: 650 mg Alprazolam (Xanax -) 0.5 mg PO BID PRN PRN Reason: ANXIETY Last Admin: 08/01/18 19:38 Dose: 0.5 mg Aspirin (Ecotrin -) 81 mg PO DAILY MARCUS Last Admin: 08/02/18 10:26 Dose: 81 mg Atenolol (Tenormin -) 50 mg PO DAILY MARCUS Last Admin: 08/01/18 10:01 Dose: 50 mg Atorvastatin Calcium (Lipitor -) 40 mg PO HS [facility]US Last Admin: 08/01/18 21:31 Dose: 40 mg Collagenase (Santyl -) 1 applic TP DAILY MARCUS; Protocol Last Admin: 08/01/18 11:00 Dose: 1 applic Escitalopram Oxalate (Lexapro -) 10 mg PO DAILY MARCUS Last Admin: 08/02/18 10:26 Dose: 10 mg Ferrous Sulfate (Feosol) 300 mg PO TIDCM [facility] Last Admin: 08/02/18 08:53 Dose: 300 mg Heparin Sodium (Porcine) (Heparin -) 5,000 unit SQ TID [facility]US Last Admin: 08/02/18 05:05 Dose: Not Given Piperacillin Sod/Tazobactam (Sod 2.25 gm/ Dextrose) 50 mls @ 100 mls/hr IVPB Q8H-IV MARCUS; Protocol Last Admin: 08/02/18 10:26 Dose: 100 mls/hr Sodium Chloride (Normal Saline -) 250 mls @ 3,000 mls/hr IV PRN PRN PRN Reason: Hypotension during Dialysis Stop: 08/02/18 16:10 Memantine (Namenda -) 5 mg PO BID [facility] Last Admin: 08/02/18 10:26 Dose: 5 mg Ondansetron HCl (Zofran Injection) 4 mg IVPUSH Q6H PRN PRN Reason: NAUSEA AND/OR VOMITING Pantoprazole Sodium (Protonix Iv) 40 mg IVPUSH BID [facility] Last Admin: 08/02/18 10:47 Dose: 40 mg Promethazine HCl (Phenergan Injection -) 12.5 mg IVPB Q6H PRN PRN Reason: NAUSEA-FOR RESCUE AFTER 15 MIN Senna (Senna -) 2 tab PO HS PRN PRN Reason: CONSTIPATION Sevelamer Carbonate (Renvela -) 800 mg PO TIDCM [facility] Last Admin: 08/02/18 08:53 Dose: 800 mg Trazodone HCl (Desyrel -) 50 mg PO HS [facility] Last Admin: 08/01/18 21:31 Dose: 50 mg 78 year old gentleman with history of ESRD on HD (MWF), Hypertension, Colon Ca s /p resection, Afib, PVD who presented with non-healing lower leg wounds. #Non-healing LE wounds with suspected Osteomylitis #ESRD on HD #Anemia #Renal Osteodystrophy no acute indication for CYBER INCIDENT [employer]ER today, next dialysis planned for Thursday Renal diet, 1.2L Fluid restriction will continue HD 3x weekly while inpatient for Bone scan of LE to access for osteomylitis Abx as per ID Hgb stable, did not require PRBC transfusion yesterday will continue high dose DARON with HD Continue renvela TID with meals Armen Machado DO
--- NOTE | 2018-08-02 13:57 | PN ---
Teaching Attending Note Name of Resident: Bladimir Staples ATTENDING PHYSICIAN STATEMENT I saw and evaluated the patient. I reviewed the resident's note and discussed the case with the resident. I agree with the resident's findings and plan as documented. SUBJECTIVE: in no distress at this time he is awake a&ox3 There have been no more bleeding from the heel wound MMM No ocular discharge No nasal discharge CVS:S1S2, + murmur for AVF CTAB Abd: BS+ NT/ND ext: No edema has the pressure dressing on the R heel and there has not been any bleeding since yesterday morning and the dressing looks clean. Labs: no labs for tonight pending 3 phasic study A&P: PVD: S/P angioplasty B/L lower ext He was on no AntiPLT and no AC in the setting of recent GIB and possibly peptic ulcer. been started on 81 mg po aspirin since 07/30 Will send stool for occult blood have increased the dose of PPI to BID have added sucralfate Will F/U with GI increased the atorvastatin dose to 40 mg qhs bleeding from the heel ulcer has been stopped will discuss the management plan with surgery on Thursday as it episodically bleeds and should be controlled better for DC. Heel ulcer: on the xray he had OM, being evaluated by podiatry and is to get 3 phasic bone scan on Thursday. He is on antibiotics will ask ID pending results of the imaging and possible OM and results of the CXs Pain management: will readdress need for fentanyl, started on bowel regimen. HX of GIB: increased the dose of PPI to BID, is off Will discuss with GI for need for F/U EGD Afib: on rate control: not on AC due to GIB fall:no ICH and no FX. ESRD:on HD and sevelamer FC to be further discussed with the family
[2018-08-02] MEDS: COLLAGENASE CLOSTRIDIUM HIST. 30 GRAMS TUBE TP SCH (18:47)
[2018-08-02] MEDS: ALPRAZolam 0.25 MG TABLET PO PRN (21:31)
[2018-08-02] MEDS: ATORVASTATIN CA 40 MG TABLET (FP) PO SCH (21:31)
[2018-08-02] MEDS: traZODone HCL 50 MG TABLET (FP) PO SCH (21:31)
[2018-08-03] MEDS ORDERED: PIPERACILLIN/TAZOBACTAM 2.25 GM VIAL IVPB ONE ×3 (02:45→17:28)
[2018-08-03] MEDS ORDERED: DEXTROSE 5%-WATER - 50 ML IVPB ONE ×3 (02:45→17:28)
[2018-08-03] MEDS: PIPERACILLIN/TAZOB 2.25 GM 2.25 GM in DEXTROSE 5%-WATER - 50 ML IVPB SCH ×3 (02:51→18:57)
[2018-08-03] MEDS: HEPARIN NA (PORCINE) 5,000 UNITS/ML 1ML VIAL SQ SCH ×3 (05:23→21:34)
[2018-08-03 07:26] LABS: HEMATOCRIT 27.2 % (35.4-49); HEMOGLOBIN 8.2 GM/dL (11.7-16.9); MCHC 30.1 g/dl (32.0-35.9); MEAN CELL VOLUME 99.7 fl (80-96); MEAN PLT VOLUME 9.9 fl (7.5-11.1); PLATELET COUNT 106 K/MM3 (134-434); RBC 2.73 M/mm3 (4.00-5.60); RDW 18.6 % (11.9-15.9); WHITE BLOOD COUNT 10.1 K/mm3 (4.0-10.0)
--- NOTE | 2018-08-03 07:42 | PN ---
Teaching Attending Note Name of Resident: Bladimir Staples ATTENDING PHYSICIAN STATEMENT I saw and evaluated the patient. I reviewed the resident's note and discussed the case with the resident. I agree with the resident's findings and plan as documented. SUBJECTIVE: Patient is comfortable with no acute distress. OBJECTIVE: Vital Signs Temperature 97.8 F 08/03/18 06:00 Pulse Rate 80 08/03/18 06:00 Respiratory Rate 22 H 08/03/18 06:00 Blood Pressure 116/60 08/03/18 06:00 O2 Sat by Pulse Oximetry (%) 96 08/02/18 21:00 GENERAL: The patient is awake, alert, and fully oriented, in no acute distress. HEAD: Normal with no signs of trauma. EYES: PERRL, extraocular movements intact, sclera anicteric, conjunctiva clear. ENT: Ears normal, oropharynx clear without exudates, moist mucous membranes. NECK: Trachea midline, full range of motion, supple. LUNGS: Breath sounds equal, clear to auscultation bilaterally, no wheezes, no accessory muscle use. HEART: Irregular rate and rhythm, S1, S2 without murmur, rub or gallop. ABDOMEN: Soft, nontender, nondistended, normoactive bowel sounds . Reducible umbilical hernia noted. EXTREMITIES: 2+ radial pulses b/l, 1+ dorsalis pedis pulses b/l , 1+ pitting edema b/l lower extremities. NEUROLOGICAL: Cranial nerves II through XII grossly intact. Normal speech. SKIN: Right heel wound overlying Achilles tendon with granuloma. Bandage in place, clean, dry. Non-draining, tender to palpation. Left first and second distal toes gangrenous, and dorsal aspect third and fourth toes. CBCD WBC 10.1 K/mm3 (4.0-10.0) H 08/03/18 06:30 RBC 2.73 M/mm3 (4.00-5.60) L 08/03/18 06:30 Hgb 8.2 GM/dL (11.7-16.9) L 08/03/18 06:30 Hct 27.2 % (35.4-49) L 08/03/18 06:30 MCV 99.7 fl (80-96) H 08/03/18 06:30 MCHC 30.1 g/dl (32.0-35.9) L 08/03/18 06:30 RDW 18.6 % (11.9-15.9) H 08/03/18 06:30 Plt Count 106 K/MM3 (134-434) L 08/03/18 06:30 MPV 9.9 fl (7.5-11.1) 08/03/18 06:30 CMP Sodium 140 mmol/L (136-145) 08/01/18 09:44 Potassium 3.6 mmol/L (3.5-5.1) 08/01/18 09:44 Chloride 100 mmol/L (98-107) 08/01/18 09:44 Carbon Dioxide 32 mmol/L (21-32) 08/01/18 09:44 Anion Gap 9 MMOL/L (8-16) 08/01/18 09:44 BUN 38 mg/dL (7-18) H 08/01/18 09:44 Creatinine 5.9 mg/dL (0.55-1.3) H 08/01/18 09:44 Creat Clearance w eGFR 9.27 (>60) 08/01/18 09:44 Random Glucose 137 mg/dL (74-106) H 08/01/18 09:44 Calcium 8.9 mg/dL (8.5-10.1) 08/01/18 09:44 Total Bilirubin 0.6 mg/dL (0.2-1) 08/01/18 09:44 AST 19 U/L (15-37) 08/01/18 09:44 ALT 21 U/L (13-61) 08/01/18 09:44 Alkaline Phosphatase 105 U/L (45-117) 08/01/18 09:44 Total Protein 5.6 g/dl (6.4-8.2) L 08/01/18 09:44 Albumin 2.4 g/dl (3.4-5.0) L 08/01/18 09:44 Current Medications Generic Name Dose Route Start Last Admin Trade Name Freq PRN Reason Stop Dose Admin Acetaminophen 650 mg 07/28/18 13:56 08/02/18 18:19 Tylenol - PO 650 mg Q6H PRN Administration PAIN LEVEL 1-5 Alprazolam 0.5 mg 07/28/18 13:56 08/02/18 21:31 Xanax - PO 0.5 mg BID PRN Administration ANXIETY Aspirin 81 mg 07/29/18 11:30 08/02/18 10:26 Ecotrin - PO 81 mg DAILY MARCUS Administration Atenolol 50 mg 07/29/18 10:00 08/02/18 10:25 Tenormin - PO Not Given DAILY MARCUS Atorvastatin Calcium 40 mg 07/29/18 22:00 08/02/18 21:31 Lipitor - PO 40 mg HS MARCUS Administration Collagenase 1 applic 07/29/18 10:00 08/02/18 18:47 Santyl - TP 1 applic DAILY MARCUS Administration Protocol Escitalopram Oxalate 10 mg 07/29/18 10:00 08/02/18 10:26 Lexapro - PO 10 mg DAILY MARCUS Administration Ferrous Sulfate 300 mg 07/31/18 17:30 08/02/18 17:32 Feosol PO 300 mg TIDCM MARCUS Administration Heparin Sodium (Porcine) 5,000 unit 08/02/18 17:00 08/03/18 05:23 Heparin - SQ Not Given TID MARCUS Piperacillin Sod/Tazobactam 50 mls @ 100 mls/hr 07/28/18 18:00 08/03/18 02:51 Sod 2.25 gm/ Dextrose IVPB 100 mls/hr Q8H-IV MARCUS Administration Protocol Memantine 5 mg 07/28/18 22:00 08/02/18 21:31 Namenda - PO 5 mg BID MARCUS Administration Ondansetron HCl 4 mg 07/28/18 13:56 Zofran Injection IVPUSH Q6H PRN NAUSEA AND/OR VOMITING Pantoprazole Sodium 40 mg 07/29/18 11:30 08/02/18 21:31 Protonix Iv IVPUSH 40 mg BID MARCUS Administration Promethazine HCl 12.5 mg 07/28/18 13:56 Phenergan Injection - IVPB Q6H PRN NAUSEA-FOR RESCUE AFTER 15 MIN Senna 2 tab 07/29/18 16:30 08/02/18 21:31 Senna - PO 2 tab HS PRN Administration CONSTIPATION Sevelamer Carbonate 800 mg 07/28/18 17:30 08/02/18 17:32 Renvela - PO 800 mg TIDCM MARCUS Administration Trazodone HCl 50 mg 07/28/18 22:00 08/02/18 21:31 Desyrel - PO 50 mg HS MARCUS Administration Home Medications Medication Instructions Recorded Alprazolam [Xanax] 0.5 mg PO BID PRN 08/15/16 Atenolol [Tenormin -] 50 mg PO DAILY 08/15/16 Oxycodone HCl/Acetaminophen 1 tab PO Q6H 08/15/16 [Percocet 5-325 mg Tablet] Zolpidem Tartrate [Ambien] 5 mg PO HS 08/15/16 traZODone HCL [Trazodone HCl] 50 mg PO HS 08/15/16 Cinacalcet HCl [Sensipar -] 30 mg PO DAILY 06/30/18 Docusate Sodium [Colace] 2 cap PO HS 06/30/18 Escitalopram Oxalate [Lexapro -] 10 mg PO DAILY 06/30/18 Memantine HCl [Namenda -] 5 mg PO BID 06/30/18 Polyethylene Glycol 3350 1,700 gm PO DAILY 06/30/18 [Laxaclear] Sennosides [Senna Concentrate] 8.6 mg PO DAILY 06/30/18 Sevelamer Carbonate [Renvela -] 800 mg PO TID 06/30/18 Vit B Comp No.3/Folic/C/Biotin 1 each PO DAILY 06/30/18 [Nephro-Louie Rx Tablet] Atorvastatin Ca [Lipitor] 10 mg PO HS tablet 07/04/18 Pantoprazole Sodium [Protonix] 40 mg PO ASDIR #60 tablet. 07/04/18 Microbiology 07/22/18 15:00 Blood - Peripheral Venous Blood Culture - Final NO GROWTH AFTER 5 DAYS INCUBATION 07/22/18 14:45 Blood - Peripheral Venous Blood Culture - Final NO GROWTH AFTER 5 DAYS INCUBATION ASSESSMENT AND PLAN: Patient is an 78 year old male with history of hypertension, Afib (Not on Ac ), ESRD on HD, colon CA s/p resection, renal osteodystrophy, peripheral arterial disease, dementia presents from [facility] with complaint of lower extremity wounds #POD #6 s/p right femoral artery revascularization with arthrectomy and angioplasty, and left extrernal iliac artery angioplasty. POD #8 s/p right heel debridement. Continue Zosyn 2.25 grams Q8H as per ID , triple phase bone scan cannot rule out osteomyelitis. -Podiatry consult (Dr. De León, Dr. Campbell) appreciated. continue IV antibx as per ID #ESRD on HD : Nephrology (Dr. Machado) appreciated. #Afib rate controlled : Not on AC due to to GI bleed on prior recent admission. Has been on Eliquis and Coumadin in the past. #Coronary artery disease:on Aspirin 81mg PO daily. GI dr. la. Monitor Hb/ Hct. #Hypertension: Atenolol 50mg PO daily #Hyperlipidema: Atorvastatin 10mg PO daily #Anxiety : Lexapro 10mg PO daily, Xanax 0.5mg PO BID PRN #Dementia: Memantine 5mg PO BID, Renvela 800mg PP TID #Insomnia: Trazodone 50mg PO QHS, Zolpidem 5mg PO HS PRN Prophylaxis: Heparin 5000u subq TID GI: Protonix 40mg IV BID
[2018-08-03 07:51] LABS: ALBUMIN 2.6 g/dl (3.4-5.0); ALK PHOS 110 U/L (45-117); ANION GAP 10 MMOL/L (8-16); BILIRUBIN,TOTAL 0.6 mg/dL (0.2-1); BLOOD UREA NITROGEN 33 mg/dL (7-18); CALCIUM 9.7 mg/dL (8.5-10.1); CHLORIDE 97 mmol/L (98-107); CO2 29 mmol/L (21-32); CREATININE 5.4 mg/dL (0.55-1.3); GLUCOSE,RANDOM 92 mg/dL (74-106); MAGNESIUM 2.3 mg/dL (1.8-2.4); PHOSPHOROUS 3.6 mg/dL (2.5-4.9); POTASSIUM 3.7 mmol/L (3.5-5.1); SGOT/AST 18 U/L (15-37); SGPT/ALT 22 U/L (13-61); SODIUM 137 mmol/L (136-145); TOT PROT 5.8 g/dl (6.4-8.2)
--- NOTE | 2018-08-03 08:07 | PN ---
Physical Exam: SUBJECTIVE: Patient seen and examined at bedside this morning. Endorsed chest pain lasting "one second" that was sharp, localized to lower lid-chest, and was non radiating, non pleuritic. Patient states it may have been gas, and has experienced similar sensation in the past. No bleeding from right lower extremity surgical site overnight. Denies fevers, chills, shortness of breath, chest pain, palpitations, abdominal pain, nausea, vomiting. Spoke with daughter Claudette (health care proxy) over phone, and discussed updates, and answered all questions. OBJECTIVE: Vital Signs Period Temp Pulse Resp BP Sys/Medina Pulse Ox Last 24 Hr 97.3 F-98 F 80-97 20-24 98-125/40-63 95-96 GENERAL: The patient is awake, alert, and fully oriented, in no acute distress. HEAD: Normal with no signs of trauma. EYES: PERRL, extraocular movements intact, sclera anicteric, conjunctiva clear. ENT: Oropharynx clear without exudates, moist mucous membranes. NECK: Trachea midline, supple. LUNGS: Breath sounds equal, clear to auscultation bilaterally, no wheezes, no crackles, no accessory muscle use. HEART: Irregular rate and rhythm, S1, S2 without murmur, rub or gallop. ABDOMEN: Soft, nontender, nondistended, normoactive bowel sounds, no guarding, no rebound tenderness. Reducible umbilical hernia noted. EXTREMITIES: 2+ radial pulses b/l, 1+ dorsalis pedis pulses b/l. Trace pitting edema b/l lower extremities. NEUROLOGICAL: Cranial nerves II through XII grossly intact. Normal speech. PSYCH: Normal mood, normal affect upon my encounter today. SKIN: Right heel wound overlying Achilles tendon. Bandage in place, clean, dry. Nondraining, no active bleeding, tender to palpation. Left first and second distal toes gangrenous, in addition to dorsal aspect third and fourth toes. Sensation intact until area of gangrenous toes, and right heel wound. Laboratory Results - last 24 hr 08/01/18 08/03/18 08/03/18 09:44 06:30 06:30 WBC 10.1 H RBC 2.73 L Hgb 8.2 L Hct 27.2 L MCV 99.7 H MCH 30.0 MCHC 30.1 L RDW 18.6 H Plt Count 106 L MPV 9.9 Sodium 137 Potassium 3.7 Chloride 97 L Carbon Dioxide 29 Anion Gap 10 BUN 33 H Creatinine 5.4 H Creat Clearance w eGFR 10.27 Random Glucose 92 Calcium 9.7 Phosphorus 3.6 Magnesium 2.3 Total Bilirubin 0.6 AST 18 ALT 22 Alkaline Phosphatase 110 Total Protein 5.8 L Albumin 2.6 L Crossmatch See Detail Active Medications Generic Name Dose Route Start Last Admin Trade Name Freq PRN Reason Stop Dose Admin Acetaminophen 650 mg 07/28/18 13:56 08/02/18 18:19 Tylenol - PO 650 mg Q6H PRN Administration PAIN LEVEL 1-5 Alprazolam 0.5 mg 07/28/18 13:56 08/02/18 21:31 Xanax - PO 0.5 mg BID PRN Administration ANXIETY Aspirin 81 mg 07/29/18 11:30 08/02/18 10:26 Ecotrin - PO 81 mg DAILY MARCUS Administration Atenolol 50 mg 07/29/18 10:00 08/02/18 10:25 Tenormin - PO Not Given DAILY MARCUS Atorvastatin Calcium 40 mg 07/29/18 22:00 08/02/18 21:31 Lipitor - PO 40 mg HS MARCUS Administration Collagenase 1 applic 07/29/18 10:00 08/02/18 18:47 Santyl - TP 1 applic DAILY MARCUS Administration Protocol Escitalopram Oxalate 10 mg 07/29/18 10:00 08/02/18 10:26 Lexapro - PO 10 mg DAILY MARCUS Administration Ferrous Sulfate 300 mg 07/31/18 17:30 08/02/18 17:32 Feosol PO 300 mg TIDCM [facility]US Administration Heparin Sodium (Porcine) 5,000 unit 08/02/18 17:00 08/03/18 05:23 Heparin - SQ Not Given TID M[facility]US Piperacillin Sod/Tazobactam 50 mls @ 100 mls/hr 07/28/18 18:00 08/03/18 02:51 Sod 2.25 gm/ Dextrose IVPB 100 mls/hr Q8H-IV M[facility]US Administration Protocol Memantine 5 mg 07/28/18 22:00 08/02/18 21:31 Namenda - PO 5 mg BID MARCUS Administration Ondansetron HCl 4 mg 07/28/18 13:56 Zofran Injection IVPUSH Q6H PRN NAUSEA AND/OR VOMITING Pantoprazole Sodium 40 mg 07/29/18 11:30 08/02/18 21:31 Protonix Iv IVPUSH 40 mg BID M[facility]US Administration Promethazine HCl 12.5 mg 07/28/18 13:56 Phenergan Injection - IVPB Q6H PRN NAUSEA-FOR RESCUE AFTER 15 MIN Senna 2 tab 07/29/18 16:30 08/02/18 21:31 Senna - PO 2 tab HS PRN Administration CONSTIPATION Sevelamer Carbonate 800 mg 07/28/18 17:30 08/02/18 17:32 Renvela - PO 800 mg TIDCM M[facility]US Administration Trazodone HCl 50 mg 07/28/18 22:00 08/02/18 21:31 Desyrel - PO 50 mg HS MARCUS Administration ASSESSMENT/PLAN: Patient is an 78 year old male with history of hypertension, Afib (currently not on anticoagulation), ESRD on HD, colon CA s/p resection, renal osteodystrophy, peripheral arterial disease, dementia presents from [facility] with complaint of lower extremity wounds Bilateral lower extremity wounds -Patient is POD #6 s/p right femoral artery revascularization with arthrectomy and angioplasty, and left extrernal iliac artery angioplasty. POD #8 s/p right heel debridement. -Triple phase bone scan suggestive of osteomyelitis. -Vancomycin 1 gram IV today -Zosyn 2.25 grams Q8H. -ID consult (Dr. Scott) appreciated. Will review study with radiologist. -CTA lower extremities results noted. -Podiatry consult (Dr. De León, Dr. Campbell) appreciated. Chest pain -resolved -EKG shows Afib; unchanged from prior EKG -Troponin negative at 0.03. -F/U chest xray -Incentive spirometer Q15 minutes. ESRD on HD -Nephrology consult (Dr. Machado) appreciated. -Patient had HD 08/01 with 2.5KG fluid removal. Tolerated well. For HD tomorrow. Afib -Patient is currently not on anticoagulation due to due to GI bleed on prior recent admission. Has been on Eliquis and Coumadin in the past. -Currently rate controlled Coronary artery disease -Reinstate Aspirin 81mg PO daily. Discussed with party plan sales agent Dr. Beebe. -Monitor Hb/ Hct closely. Hypertension -Atenolol 50mg PO daily Hyperlipidema -Atorvastatin 10mg PO daily Anxiety -Lexapro 10mg PO daily -Xanax 0.5mg PO BID PRN Dementia -Memantine 5mg PO BID -Renvela 800mg PP TID Insomnia -Trazodone 50mg PO QHS -Zolpidem 5mg PO HS PRN FEN -No IV fluids -Follow CMP -Sodium, renal controlled diet Prophylaxis -Heparin 5000u subq TID -Protonix 40mg IV BID Disposition: Continue care in medical surgical floor. Visit type - Emergency Visit Emergency Visit: Yes ED Registration Date: 07/22/18 Care time: The patient presented to the Emergency Department on the above date and was hospitalized for further evaluation of their emergent condition. - New Patient This patient is new to me today: No - Critical Care Critical Care patient: No - Discharge Referral Referred to [facility] Med [facility] No
[2018-08-03] MEDS: FERROUS SO4 300 MG/5 ML ORAL SOLN UNIT DOSE CUPS PO SCH ×3 (08:54→17:29)
[2018-08-03] MEDS: SEVELAMER CARBONATE 800 MG TAB (FP) PO SCH ×3 (08:54→17:29)
[2018-08-03] MEDS: ACETAMINOPHEN 325 MG TABLET (FP) PO PRN (08:54)
[2018-08-03] MEDS: MEMANTINE HCL 5 MG TABLET (UD) PO SCH ×2 (09:53→21:34)
[2018-08-03] MEDS: ATENOLOL 50 MG TABLET (FP) PO SCH (09:53)
[2018-08-03] MEDS: PANTOPRAZOLE SODIUM 40 MG VIAL IVPUSH SCH ×2 (09:53→21:34)
[2018-08-03] MEDS: ASPIRIN COATED 81 MG TABLET.EC PO SCH (09:53)
[2018-08-03] MEDS: ESCITALOPRAM OXALATE 10 MG TABLET (FP) PO SCH (09:53)
[2018-08-03] MEDS ORDERED: SODIUM CHLORIDE 250 ML IV PRN (12:34)
--- NOTE | 2018-08-03 12:34 | PN ---
Progress Note (short form) - Note Progress Note: Renal follow up for ESRD on HD Pt seen and examined at he bedside no acute complaints Vital Signs Temperature 97.8 F 08/03/18 06:00 Pulse Rate 86 08/03/18 09:45 Respiratory Rate 22 H 08/03/18 09:45 Blood Pressure 93/45 L 08/03/18 09:45 O2 Sat by Pulse Oximetry (%) 96 08/03/18 08:01 NAD awake and alert no Le edema CBC, BMP 08/03/18 06:30 08/03/18 06:30 Current Medications Acetaminophen (Tylenol -) 650 mg PO Q6H PRN PRN Reason: PAIN LEVEL 1-5 Last Admin: 08/03/18 08:54 Dose: 650 mg Alprazolam (Xanax -) 0.5 mg PO BID PRN PRN Reason: ANXIETY Last Admin: 08/02/18 21:31 Dose: 0.5 mg Aspirin (Ecotrin -) 81 mg PO DAILY [facility] Last Admin: 08/03/18 09:53 Dose: 81 mg Atenolol (Tenormin -) 50 mg PO DAILY [facility] Last Admin: 08/03/18 09:53 Dose: Not Given Atorvastatin Calcium (Lipitor -) 40 mg PO HS [facility] Last Admin: 08/02/18 21:31 Dose: 40 mg Collagenase (Santyl -) 1 applic TP DAILY [facility]; Protocol Last Admin: 08/02/18 18:47 Dose: 1 applic Escitalopram Oxalate (Lexapro -) 10 mg PO DAILY [facility] Last Admin: 08/03/18 09:53 Dose: 10 mg Ferrous Sulfate (Feosol) 300 mg PO TIDCM [facility] Last Admin: 08/03/18 12:26 Dose: 300 mg Heparin Sodium (Porcine) (Heparin -) 5,000 unit SQ TID [facility] Last Admin: 08/03/18 05:23 Dose: Not Given Piperacillin Sod/Tazobactam (Sod 2.25 gm/ Dextrose) 50 mls @ 100 mls/hr IVPB Q8H-IV [facility]; Protocol Last Admin: 08/03/18 09:53 Dose: 100 mls/hr Memantine (Namenda -) 5 mg PO BID [facility] Last Admin: 08/03/18 09:53 Dose: 5 mg Ondansetron HCl (Zofran Injection) 4 mg IVPUSH Q6H PRN PRN Reason: NAUSEA AND/OR VOMITING Pantoprazole Sodium (Protonix Iv) 40 mg IVPUSH BID [facility] Last Admin: 08/03/18 09:53 Dose: 40 mg Promethazine HCl (Phenergan Injection -) 12.5 mg IVPB Q6H PRN PRN Reason: NAUSEA-FOR RESCUE AFTER 15 MIN Senna (Senna -) 2 tab PO HS PRN PRN Reason: CONSTIPATION Last Admin: 08/02/18 21:31 Dose: 2 tab Sevelamer Carbonate (Renvela -) 800 mg PO TIDCM [facility] Last Admin: 08/03/18 12:26 Dose: 800 mg Trazodone HCl (Desyrel -) 50 mg PO HS [facility] Last Admin: 08/02/18 21:31 Dose: 50 mg 78 year old gentleman with history of ESRD on HD (MWF), Hypertension, Colon Ca s /p resection, Afib, PVD who presented with non-healing lower leg wounds. #Non-healing LE wounds with suspected Osteomylitis #ESRD on HD #Anemia #Renal Osteodystrophy for Hd tomorrow morning Renal diet, 1.2L Fluid restriction will continue HD 3x weekly while inpatient Abx as per ID Hgb stable, did not require PRBC transfusion yesterday will continue high dose DARON with HD Continue renvela TID with meals Armen Machado DO
[2018-08-03] MEDS: COLLAGENASE CLOSTRIDIUM HIST. 30 GRAMS TUBE TP SCH (13:45)
--- NOTE | 2018-08-03 14:05 | PN ---
Progress Note, Physician Chief Complaint: Day #13 antibiotics C/O L heel pain No c/o fever/ chills Bone scan with uptake, distal tibia CXR with increased congestive changes R >L - Current Medication List Current Medications: Active Medications Acetaminophen (Tylenol -) 650 mg PO Q6H PRN PRN Reason: PAIN LEVEL 1-5 Last Admin: 08/03/18 08:54 Dose: 650 mg Alprazolam (Xanax -) 0.5 mg PO BID PRN PRN Reason: ANXIETY Last Admin: 08/02/18 21:31 Dose: 0.5 mg Aspirin (Ecotrin -) 81 mg PO DAILY [facility] Last Admin: 08/03/18 09:53 Dose: 81 mg Atenolol (Tenormin -) 50 mg PO DAILY [facility] Last Admin: 08/03/18 09:53 Dose: Not Given Atorvastatin Calcium (Lipitor -) 40 mg PO HS [facility] Last Admin: 08/02/18 21:31 Dose: 40 mg Collagenase (Santyl -) 1 applic TP DAILY [facility]; Protocol Last Admin: 08/02/18 18:47 Dose: 1 applic Epoetin Arsalan (Epogen -) 20,000 unit IVPUSH ONCE ONE Stop: 08/04/18 07:01 Escitalopram Oxalate (Lexapro -) 10 mg PO DAILY [facility] Last Admin: 08/03/18 09:53 Dose: 10 mg Ferrous Sulfate (Feosol) 300 mg PO TIDCM [facility] Last Admin: 08/03/18 12:26 Dose: 300 mg Heparin Sodium (Porcine) (Heparin -) 5,000 unit SQ TID [facility] Last Admin: 08/03/18 05:23 Dose: Not Given Piperacillin Sod/Tazobactam (Sod 2.25 gm/ Dextrose) 50 mls @ 100 mls/hr IVPB Q8H-IV [facility]; Protocol Last Admin: 08/03/18 09:53 Dose: 100 mls/hr Sodium Chloride (Normal Saline -) 250 mls @ 3,000 mls/hr IV PRN PRN PRN Reason: Hypotension during Dialysis Stop: 08/04/18 12:34 Memantine (Namenda -) 5 mg PO BID [facility] Last Admin: 08/03/18 09:53 Dose: 5 mg Ondansetron HCl (Zofran Injection) 4 mg IVPUSH Q6H PRN PRN Reason: NAUSEA AND/OR VOMITING Pantoprazole Sodium (Protonix Iv) 40 mg IVPUSH BID [facility] Last Admin: 08/03/18 09:53 Dose: 40 mg Promethazine HCl (Phenergan Injection -) 12.5 mg IVPB Q6H PRN PRN Reason: NAUSEA-FOR RESCUE AFTER 15 MIN Senna (Senna -) 2 tab PO HS PRN PRN Reason: CONSTIPATION Last Admin: 08/02/18 21:31 Dose: 2 tab Sevelamer Carbonate (Renvela -) 800 mg PO TIDCM [facility] Last Admin: 08/03/18 12:26 Dose: 800 mg Trazodone HCl (Desyrel -) 50 mg PO HS [facility] Last Admin: 08/02/18 21:31 Dose: 50 mg - Objective Vital Signs: Vital Signs Temperature 97.8 F 08/03/18 06:00 Pulse Rate 86 08/03/18 09:45 Respiratory Rate 22 H 08/03/18 09:45 Blood Pressure 93/45 L 08/03/18 09:45 O2 Sat by Pulse Oximetry (%) 96 08/03/18 08:01 Constitutional: Yes: No Distress Eyes: Yes: Conjunctiva Clear Cardiovascular: Yes: Regular Rate and Rhythm Respiratory: Yes: CTA Bilaterally Gastrointestinal: Yes: Normal Bowel Sounds, Soft. No: Tenderness Extremities: Yes: Other (+ dry necrotic areas L 1/2 toes; Large clean ulcer over R achilles tendon. No drainage) Labs: CBC, BMP 08/03/18 06:30 08/03/18 06:30 INR, PTT INR 1.31 (0.83-1.09) H 07/28/18 14:15 Assessment/Plan S/P debridement R achilles tendon + osteomyelitis by bone scan ESRD Continue zosyn Redose vancomycin Will review bone scan with radiologist prior to recommendations for outpatient antibiotic tx
[2018-08-03] MEDS ORDERED: VANCOMYCIN 1 GRAM (PRE-DOCKED) 1,000 MG/250 ML BAG IVPB ONE (14:06)
[2018-08-03] MEDS ORDERED: POLYETHYLENE GLYCOL 3350 119 GM BTL PO ONE (17:04)
[2018-08-03] MEDS: traZODone HCL 50 MG TABLET (FP) PO SCH (21:33)
[2018-08-03] MEDS: ATORVASTATIN CA 40 MG TABLET (FP) PO SCH (21:33)
[2018-08-03] MEDS: ALPRAZolam 0.25 MG TABLET PO PRN (21:34)
[2018-08-03] MEDS ORDERED: PANTOPRAZOLE 40 MG TABLET (FP) PO ONE (22:45)
[2018-08-04] MEDS: PIPERACILLIN/TAZOB 2.25 GM 2.25 GM in DEXTROSE 5%-WATER - 50 ML IVPB SCH ×2 (02:47→17:06)
[2018-08-04] MEDS: HEPARIN NA (PORCINE) 5,000 UNITS/ML 1ML VIAL SQ SCH ×3 (06:26→21:05)
[2018-08-04 08:49] LABS: HEMATOCRIT 25.5 % (35.4-49); HEMOGLOBIN 7.8 GM/dL (11.7-16.9); MCH 30.6 pg (25.7-33.7); MCHC 30.6 g/dl (32.0-35.9); MEAN CELL VOLUME 100.2 fl (80-96); MEAN PLT VOLUME 11.5 fl (7.5-11.1); PLATELET COUNT 104 K/MM3 (134-434); RBC 2.54 M/mm3 (4.00-5.60); WHITE BLOOD COUNT 9.9 K/mm3 (4.0-10.0)
[2018-08-04 08:56] LABS: ANION GAP 10 MMOL/L (8-16); BLOOD UREA NITROGEN 42 mg/dL (7-18); CALCIUM 9.4 mg/dL (8.5-10.1); CHLORIDE 94 mmol/L (98-107); CO2 29 mmol/L (21-32); CREATININE 6.2 mg/dL (0.55-1.3); GLUCOSE,RANDOM 83 mg/dL (74-106); PHOSPHOROUS 4.4 mg/dL (2.5-4.9); POTASSIUM 4.2 mmol/L (3.5-5.1); SODIUM 134 mmol/L (136-145)
[2018-08-04] MEDS: ACETAMINOPHEN 325 MG TABLET (FP) PO PRN ×2 (09:38→21:07)
[2018-08-04] MEDS ORDERED: PIPERACILLIN/TAZOBACTAM 2.25 GM VIAL IVPB ONE (10:17)
[2018-08-04] MEDS ORDERED: DEXTROSE 5%-WATER - 50 ML IVPB ONE (10:17)
[2018-08-04] MEDS ORDERED: EPOETIN ALFA 20,000 UNIT/1 ML VIAL IVPUSH ONE (11:00)
--- NOTE | 2018-08-04 11:08 | PN ---
Progress Note, Physician Chief Complaint: Day #14 antibiotics C/O pain L 1/2 toes, R ankle No c/o fever/ chills Bone scan with uptake, distal tibia CXR with increased congestive changes R >L - Current Medication List Current Medications: Active Medications Acetaminophen (Tylenol -) 650 mg PO Q6H PRN PRN Reason: PAIN LEVEL 1-5 Last Admin: 08/04/18 09:38 Dose: 650 mg Aspirin (Ecotrin -) 81 mg PO DAILY [facility] Last Admin: 08/03/18 09:53 Dose: 81 mg Atenolol (Tenormin -) 50 mg PO DAILY [facility] Last Admin: 08/03/18 09:53 Dose: Not Given Atorvastatin Calcium (Lipitor -) 40 mg PO HS [facility] Last Admin: 08/03/18 21:33 Dose: 40 mg Collagenase (Santyl -) 1 applic TP DAILY [facility]; Protocol Last Admin: 08/03/18 13:45 Dose: 1 applic Escitalopram Oxalate (Lexapro -) 10 mg PO DAILY [facility] Last Admin: 08/03/18 09:53 Dose: 10 mg Ferrous Sulfate (Feosol) 300 mg PO TIDCM [facility] Last Admin: 08/03/18 17:29 Dose: 300 mg Heparin Sodium (Porcine) (Heparin -) 5,000 unit SQ TID [facility] Last Admin: 08/04/18 06:26 Dose: Not Given Piperacillin Sod/Tazobactam (Sod 2.25 gm/ Dextrose) 50 mls @ 100 mls/hr IVPB Q8H-IV [facility]; Protocol Last Admin: 08/04/18 02:47 Dose: Not Given Sodium Chloride (Normal Saline -) 250 mls @ 3,000 mls/hr IV PRN PRN PRN Reason: Hypotension during Dialysis Stop: 08/04/18 12:34 Memantine (Namenda -) 5 mg PO BID [facility] Last Admin: 08/03/18 21:34 Dose: 5 mg Ondansetron HCl (Zofran Injection) 4 mg IVPUSH Q6H PRN PRN Reason: NAUSEA AND/OR VOMITING Pantoprazole Sodium (Protonix Iv) 40 mg IVPUSH BID [facility] Last Admin: 08/03/18 21:34 Dose: Not Given Promethazine HCl (Phenergan Injection -) 12.5 mg IVPB Q6H PRN PRN Reason: NAUSEA-FOR RESCUE AFTER 15 MIN Senna (Senna -) 2 tab PO HS PRN PRN Reason: CONSTIPATION Last Admin: 08/02/18 21:31 Dose: 2 tab Sevelamer Carbonate (Renvela -) 800 mg PO TIDCM [facility] Last Admin: 08/03/18 17:29 Dose: 800 mg Trazodone HCl (Desyrel -) 50 mg PO HS [facility] Last Admin: 08/03/18 21:33 Dose: 50 mg - Objective Vital Signs: Vital Signs Temperature 98.0 F 08/04/18 06:00 Pulse Rate 93 H 08/04/18 06:00 Respiratory Rate 20 08/04/18 06:00 Blood Pressure 109/69 08/04/18 06:00 O2 Sat by Pulse Oximetry (%) 96 08/03/18 21:00 Constitutional: Yes: No Distress Eyes: Yes: Conjunctiva Clear Cardiovascular: Yes: Regular Rate and Rhythm, S1, S2 Respiratory: Yes: Diminished Gastrointestinal: Yes: Normal Bowel Sounds, Soft. No: Tenderness Extremities: Yes: Other (dry ulcers, tips of 1/2 L toes; R Achilles tendon ulcer no purulence, slight wound erythema) Labs: CBC, BMP 08/04/18 05:35 08/04/18 05:35 INR, PTT INR 1.31 (0.83-1.09) H 07/28/18 14:15 Assessment/Plan S/P debridement R achilles tendon + osteomyelitis by bone scan ESRD Bone scan and plain Xrays reviewed with radiologist Uptake appears to be in R ankle, not adjacent to ulcer Would continue treatment for wound infection/ possible osteomyelitis with vancomycin dosed at dialysis and po augmentin for additional 4w\ Hold vancomycin today, redose 500mg next HD Augmentin 250mg po qd Podiatry follow up ?Referral to wound care center
--- NOTE | 2018-08-04 12:03 | PN ---
Progress Note (short form) - Note Progress Note: Renal follow up for ESRD on HD Pt seen and examined during dialysis pt had dislodging of AVF needle that resulted in bleeding with around 50-100cc blood loss pt w/o complaints no cp, abd pain Vital Signs Temperature 97.7 F 08/04/18 08:15 Pulse Rate 90 08/04/18 09:30 Respiratory Rate 18 08/04/18 09:30 Blood Pressure 127/56 L 08/04/18 09:30 O2 Sat by Pulse Oximetry (%) 96 08/03/18 21:00 awake and alert neck supple, no JVD RRR CTA trace edema in LE CBC, BMP 08/04/18 05:35 08/04/18 05:35 Current Medications Acetaminophen (Tylenol -) 650 mg PO Q6H PRN PRN Reason: PAIN LEVEL 1-5 Last Admin: 08/04/18 09:38 Dose: 650 mg Amoxicillin/Clavulanate Potassium (Augmentin - 250mg Tablet) 1 tab PO DAILY [facility] Aspirin (Ecotrin -) 81 mg PO DAILY [facility] Last Admin: 08/03/18 09:53 Dose: 81 mg Atenolol (Tenormin -) 50 mg PO DAILY [facility] Last Admin: 08/03/18 09:53 Dose: Not Given Atorvastatin Calcium (Lipitor -) 40 mg PO HS [facility] Last Admin: 08/03/18 21:33 Dose: 40 mg Collagenase (Santyl -) 1 applic TP DAILY [facility]; Protocol Last Admin: 08/03/18 13:45 Dose: 1 applic Escitalopram Oxalate (Lexapro -) 10 mg PO DAILY [facility] Last Admin: 08/03/18 09:53 Dose: 10 mg Ferrous Sulfate (Feosol) 300 mg PO TIDCM [facility] Last Admin: 08/03/18 17:29 Dose: 300 mg Heparin Sodium (Porcine) (Heparin -) 5,000 unit SQ TID [facility] Last Admin: 08/04/18 06:26 Dose: Not Given Sodium Chloride (Normal Saline -) 250 mls @ 3,000 mls/hr IV PRN PRN PRN Reason: Hypotension during Dialysis Stop: 08/04/18 12:34 Memantine (Namenda -) 5 mg PO BID [facility] Last Admin: 08/03/18 21:34 Dose: 5 mg Ondansetron HCl (Zofran Injection) 4 mg IVPUSH Q6H PRN PRN Reason: NAUSEA AND/OR VOMITING Pantoprazole Sodium (Protonix Iv) 40 mg IVPUSH BID [facility] Last Admin: 08/03/18 21:34 Dose: Not Given Promethazine HCl (Phenergan Injection -) 12.5 mg IVPB Q6H PRN PRN Reason: NAUSEA-FOR RESCUE AFTER 15 MIN Senna (Senna -) 2 tab PO HS PRN PRN Reason: CONSTIPATION Last Admin: 08/02/18 21:31 Dose: 2 tab Sevelamer Carbonate (Renvela -) 800 mg PO TIDCM [facility] Last Admin: 08/03/18 17:29 Dose: 800 mg Trazodone HCl (Desyrel -) 50 mg PO HS [facility] Last Admin: 08/03/18 21:33 Dose: 50 mg 78 year old gentleman with history of ESRD on HD (MWF), Hypertension, Colon Ca s /p resection, Afib, PVD who presented with non-healing lower leg wounds. #Non-healing LE wounds with suspected Osteomylitis #ESRD on HD #Anemia #Renal Osteodystrophy Tolerating dialysis this am will transfuse 1 unit prbc given Hgb < 8 and blood loss with HD today Continue high dose DARON Will need IV vancomycin with HD for 4 weeks as per ID, will communicate this with outpatient dialysis Armen Machado DO
[2018-08-04] MEDS: FERROUS SO4 300 MG/5 ML ORAL SOLN UNIT DOSE CUPS PO SCH ×3 (12:28→18:35)
[2018-08-04] MEDS: SEVELAMER CARBONATE 800 MG TAB (FP) PO SCH ×3 (12:29→18:35)
--- NOTE | 2018-08-04 14:01 | PN ---
Progress Note (short form) - Note Progress Note: Right calf wound clean, granulating at edges. No erythema. Mild tenderness. Continue wound care with Santyl daily. [facility] will [facility]. 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
[2018-08-04] MEDS ORDERED: PT OWN MED DRAWER 7, Y5N ONE (14:27)
--- NOTE | 2018-08-04 14:27 | OP ---
DATE OF OPERATION: 07/28/2018 SURGEON: Espinoza Martinez MD PROCEDURE: Revascularization, right femoral artery, with atherectomy and angioplasty, left external iliac artery. PREOPERATIVE DIAGNOSIS: Gangrene, right lower extremity. POSTOPERATIVE DIAGNOSIS: Gangrene, right lower extremity. ANESTHESIA: Fractional. ANESTHESIOLOGIST: Harper Fonseca MD OPERATIVE FINDINGS: There was patent distal abdominal aorta and iliac artery on the right side with severe tortuosity. The right common femoral and deep femoral arteries were patent. The superficial femoral artery was patent with multiple areas of stenosis ranging from 70% to 90%. The popliteal artery was patent with a proximal origin of the anterior tibial artery. The tibioperoneal trunk was patent. The posterior tibial artery was the only vessel that was patent to the foot. The anterior tibial artery appeared to have multiple stenoses with a distal anterior tibial and dorsalis pedis artery seen in the foot. At the completion of the procedure angiogram of the left iliac artery revealed multiple areas of stenosis and tortuosity with decreased flow which required angioplasty. OPERATIVE PROCEDURE: Following routine patient identification with site and side verification intravenous sedation was established. Both groins were prepped with ChloraPrep. Timeout was performed. Using realtime duplex imaging the left common femoral artery was identified. It had pulsatile flow. Lidocaine 1% was infiltrated in the skin over the vessel and it was cannulated under ultrasound guidance with a micropuncture needle proximal to its bifurcation. A wire and catheter were advanced proximally and the wire was exchanged for a J-tip wire. A 5-Citizen [place] sheath was then exchanged over the wire into the external iliac artery. The wire and catheter were then advanced into the abdominal aorta and angiography performed of the distal aorta with the above-noted findings. The wire was then advanced into the right iliac artery down to the level of the femoral artery. The catheter was advanced over the wire and the wire was removed. Angiography of the right lower extremity was then obtained using digital technique. A stiff wire was then advanced through the catheter and the catheter was removed. The sheath was removed. A long 6-Citizen [place] sheath was then advanced over the wire over the aortic bifurcation into the right distal external iliac artery. The patient was systemically heparinized. Then the wire and catheter were then advanced distally into the superficial femoral artery using roadmapping technique. They were advanced down into the popliteal artery. Atherectomy of the superficial femoral artery was then performed with the CSI Diamondback device using a 1.5 solid crown tip. Atherectomy was performed to calcified areas of the superficial femoral artery at low and medium speeds. Angioplasty of the femoral artery was then performed with a long 6-mm balloon. Completion imaging revealed improved flow with resolution of the areas of stenosis and intact distal runoff as noted above. The sheath was then pulled back over the wire and exchanged for a short 6-[place]izen [place] sheath into the left external iliac artery. Angiography now revealed areas of severe stenosis in the vessel which may have been related to trauma from the wire and sheath being placed. A 7 x 100-mm angioplasty balloon was used to dilate the distal left external iliac artery. Repeat imaging revealed improvement in the areas of stenosis and improved flow. A stent was not available in the appropriate size. The sheath was then removed using a Mynx closure device without complication. Sterile dressings were applied and the patient was taken to the recovery area in stable condition. Ave PANG/[id number]
[2018-08-04] MEDS: ATENOLOL 50 MG TABLET (FP) PO SCH (14:33)
[2018-08-04] MEDS: COLLAGENASE CLOSTRIDIUM HIST. 30 GRAMS TUBE TP SCH (14:33)
[2018-08-04] MEDS: ESCITALOPRAM OXALATE 10 MG TABLET (FP) PO SCH (14:33)
[2018-08-04] MEDS: MEMANTINE HCL 5 MG TABLET (UD) PO SCH ×2 (14:36→21:05)
[2018-08-04] MEDS: ASPIRIN COATED 81 MG TABLET.EC PO SCH (14:36)
[2018-08-04] MEDS: AMOX TR/POT CLAV 250MG/125MG TABLETS PO SCH (14:36)
[2018-08-04] MEDS: PANTOPRAZOLE SODIUM 40 MG VIAL IVPUSH SCH ×2 (14:39→21:06)
--- NOTE | 2018-08-04 16:07 | DS ---
Physical Exam: SUBJECTIVE: Patient seen and examined at bedside this morning. Denies acute complaints today. Wants to go back to [facility]. OBJECTIVE: Vital Signs Period Temp Pulse Resp BP Sys/Medina Pulse Ox Last 24 Hr 97.4 F-98.1 F 74-93 18-24 102-139/43-70 96-97 PHYSICAL EXAM GENERAL: The patient is awake, alert, and fully oriented, in no acute distress. HEAD: Normal with no signs of trauma. EYES: PERRL, extraocular movements intact, sclera anicteric, conjunctiva clear. ENT: Oropharynx clear without exudates, moist mucous membranes. NECK: Trachea midline, supple. LUNGS: Breath sounds equal, clear to auscultation bilaterally, no wheezes, no crackles, no accessory muscle use. HEART: Irregular rate and rhythm, S1, S2 without murmur, rub or gallop. ABDOMEN: Soft, nontender, nondistended, normoactive bowel sounds, no guarding, no rebound tenderness. Reducible umbilical hernia noted. EXTREMITIES: 2+ radial pulses b/l, 1+ dorsalis pedis pulses b/l. Trace pitting edema b/l lower extremities. NEUROLOGICAL: Cranial nerves II through XII grossly intact. Normal speech. PSYCH: Normal mood, normal affect upon my encounter today. SKIN: Right heel wound overlying Achilles tendon. Bandage in place, clean, dry. Nondraining, no active bleeding, tender to palpation. Left first and second distal toes gangrenous, in addition to dorsal aspect third and fourth toes. Sensation intact until area of gangrenous toes, and right heel wound. LABS Laboratory Results - last 24 hr 08/01/18 08/04/18 08/04/18 09:44 05:35 05:35 WBC RBC Hgb Hct MCV MCH MCHC RDW Plt Count MPV Sodium 134 L Potassium 4.2 Chloride 94 L Carbon Dioxide 29 Anion Gap 10 BUN 42 H Creatinine 6.2 H Creat Clearance w eGFR 8.76 Random Glucose 83 Calcium 9.4 Phosphorus 4.4 Random Vancomycin 25.8 Blood Type Antibody Screen Crossmatch See Detail 08/04/18 08/04/18 05:35 08:00 WBC 9.9 RBC 2.54 L Hgb 7.8 L Hct 25.5 L MCV 100.2 H MCH 30.6 MCHC 30.6 L RDW 19.0 H Plt Count 104 L MPV 11.5 H D Sodium Potassium Chloride Carbon Dioxide Anion Gap BUN Creatinine Creat Clearance w eGFR Random Glucose Calcium Phosphorus Random Vancomycin Blood Type A POSITIVE Antibody Screen Negative Crossmatch See Detail HOSPITAL COURSE: Date of Admission:07/22/18 Date of Discharge: 08/04/18 Patient is an 78 year old male with history of hypertension, Afib (currently not on anticoagulation), ESRD on HD, colon CA s/p resection, renal osteodystrophy, peripheral arterial disease, dementia presents from [facility] with complaint of lower extremity wounds. Started on Vancomycin and Zosyn with ID recommendation. He was evaluated by vascular surgeon, and underwent right heel debridement and right femoral artery revascularization with arthrectomy and angioplasty, and left extrernal iliac artery angioplasty. Patient tolerated procedure well. Patient was also evaluated by podiatry with concern of osteomyelitis. Triple phase bone scan was performed suggestive of osteomyelitis and patient was discharged with Vancomycin (starting at 500mg dosed at dialysis ) and Augmentin 250mg daily for 4 weeks, with ID recommendation. Patient to continue HD Thu/ Thu/ Thu at [facility]. Patient discharged back to [facility], to continue his home medications, with follow up with primary care physician, vascular surgeon, podiatry, nephrology. In addition to cardiology, gastroenterolgoy regarding reinstatement of his anticoagulation for Afib. 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 You were evaluated by the surgeon, and underwent surgical intervention to remove tissue from the wound and restore blood flow to the leg. Your bone scan was suggestive of infection in your right lower extremity. You will take Vancomycin 500mg dosed at dialysis, and Augmentin 250mg orally daily for the next 4 weeks. Continue taking your home medications as directed. We have reinstated your Aspirin 81mg daily, after discussion with your Dry Boss. We have increased the dose of your Atorvastatin to 40mg daily. Discuss this change with your primary care physician. Continue with your dialysis on Thursday/ Thursday/ Thursday at [facility]. Rest your leg, and avoid any trauma to the area. Follow up with your primary care physician within two-three days after discharge. Discuss with your primary care physician, brand ambassadors promotional sales, and belt buckle maker regarding risks and benefits of restarting anticoagulation for your Atrial Fibrillation. Follow up with surgeon Dr. Martinez within one week of discharge. Follow up with railroad dining car steward/stewardess Dr. Campbell within one week after discharge. Follow up with veterinary laboratory diagnostician within one week of discharge. A referral has been provided for Dr. Machado, the veterinary laboratory diagnostician you saw while admitted to the hospital. SNF INSTRUCTIONS: Wound care with Santyl dressings daily. Patient to follow up with Dr. Martinez (wound clinic) within one week after hospital discharge. Patient to continue hemodialysis Thursday/ Thursday/ Thursday at [facility]. Vancomycin 500mg given and dosed during dialysis for 4 weeks. Draw Vancomycin levels before dialysis, and adjust dosage so that Vancomycin level between 15 and 20 micrograms/mL. Augmentin 250mg orally daily for the next 4 weeks. Referrals: Max Campbell MD [Staff Physician] - Luigi Florence MD [Staff Physician] - Marvin Beebe MD [Staff Physician] - Armen Machado MD [Staff Physician] - Espinoza Martinez MD [Staff Physician] - Disposition: NURSING HOME FACILITY - Home Medications Comprehensive Discharge Medication List: Ambulatory Orders Alprazolam [Xanax] 0.5 mg PO BID PRN 08/15/16 Atenolol [Tenormin -] 50 mg PO DAILY 08/15/16 Oxycodone HCl/Acetaminophen [Percocet 5-325 mg Tablet] 1 tab PO Q6H 08/15/16 Zolpidem Tartrate [Ambien] 5 mg PO HS 08/15/16 traZODone HCL [Trazodone HCl] 50 mg PO HS 08/15/16 Cinacalcet HCl [Sensipar -] 30 mg PO DAILY 06/30/18 Docusate Sodium [Colace] 2 cap PO HS 06/30/18 Escitalopram Oxalate [Lexapro -] 10 mg PO DAILY 06/30/18 Memantine HCl [Namenda -] 5 mg PO BID 06/30/18 Polyethylene Glycol 3350 [Laxaclear] 1,700 gm PO DAILY 06/30/18 Sennosides [Senna Concentrate] 8.6 mg PO DAILY 06/30/18 Sevelamer Carbonate [Renvela -] 800 mg PO TID 06/30/18 Vit B Comp No.3/Folic/C/Biotin [Nephro-Louie Rx Tablet] 1 each PO DAILY 06/30/18 Pantoprazole Sodium [Protonix] 40 mg PO ASDIR #60 tablet.dr 07/04/18 Acetaminophen [Tylenol .Regular Strength -] 650 mg PO Q6H PRN tablet 08/04/18 Amox-Tr/K Cl [Augmentin 250-125mg Tablet -] 1 tab PO DAILY 28 Days #28 tablet Aspirin Coated [Ecotrin -] 81 mg PO DAILY tablet.ec 08/04/18 Aspirin [ASA -] 81 mg PO DAILY #30 tab.chew 08/04/18 Atorvastatin Ca [Lipitor] 40 mg PO HS tablet 08/04/18 Collagenase Clostridium Hist. [Santyl -] 1 applic TP DAILY tube 08/04/18 Vancomycin 500 mg IV DAILY 28 Days #12 vial 08/04/18 This patient is new to me today: No Emergency Visit: Yes ED Registration Date: 07/22/18 Care time: The patient presented to the Emergency Department on the above date and was hospitalized for further evaluation of their emergent condition. Critical Care patient: No - Discharge Referral Referred to [facility] No
[2018-08-04] MEDS ORDERED: MELATONIN 5 MG TABLETS PO ONE (18:23)
--- NOTE | 2018-08-04 19:02 | EKG ---
Test Reason : Blood Pressure : / mmHG Vent. Rate : 093 BPM Atrial Rate : 115 BPM P-R Int : 000 ms QRS Dur : 142 ms QT Int : 406 ms P-R-T Axes : 000 266 141 degrees QTc Int : 504 ms ATRIAL FIBRILLATION WITH PREMATURE VENTRICULAR OR ABERRANTLY CONDUCTED COMPLEXES RIGHT SUPERIOR AXIS DEVIATION NON-SPECIFIC INTRA-VENTRICULAR CONDUCTION BLOCK CANNOT RULE OUT SEPTAL INFARCT (CITED ON OR BEFORE 30-JUN-2018) T WAVE ABNORMALITY, CONSIDER LATERAL ISCHEMIA ABNORMAL ECG WHEN COMPARED WITH ECG OF 22-JUL-2018 15:58, QT HAS LENGTHENED Confirmed by SERGEI POLLARD, DARRELL ([id number]) on 08/04/2018 7:01:50 PM Referred By: Pio DUNCAN Confirmed By:DARRELL MAI MD
--- NOTE | 2018-08-04 20:05 | PN ---
Teaching Attending Note Name of Resident: Bladimir Staples ATTENDING PHYSICIAN STATEMENT I saw and evaluated the patient. I reviewed the resident's note and discussed the case with the resident. I agree with the resident's findings and plan as documented. SUBJECTIVE: Feels well - no complaints. OBJECTIVE: Afebrile, Hemodynamically Stable. On HD during interview. Last Vital Signs Temp Pulse Resp BP Pulse Ox 97.6 F 79 18 128/53 L 97 08/04/18 13:00 08/04/18 13:00 08/04/18 13:00 08/04/18 13:00 08/04/18 09:00 HEENT - Atraumatic, Normocephalic Heart - S1, S2, RRR Lungs - clear to auscultation Abdomen - Soft, non-tender. Bowel Sounds normal. Extremities - R heel dressed s/p surgery. Mild L foot edema. No calf tenderness. Laboratory Results - last 24 hr 08/01/18 08/04/18 08/04/18 09:44 05:35 05:35 WBC RBC Hgb Hct MCV MCH MCHC RDW Plt Count MPV Sodium 134 L Potassium 4.2 Chloride 94 L Carbon Dioxide 29 Anion Gap 10 BUN 42 H Creatinine 6.2 H Creat Clearance w eGFR 8.76 Random Glucose 83 Calcium 9.4 Phosphorus 4.4 Random Vancomycin 25.8 Blood Type Antibody Screen Crossmatch See Detail 08/04/18 08/04/18 05:35 08:00 WBC 9.9 RBC 2.54 L Hgb 7.8 L Hct 25.5 L MCV 100.2 H MCH 30.6 MCHC 30.6 L RDW 19.0 H Plt Count 104 L MPV 11.5 H D Sodium Potassium Chloride Carbon Dioxide Anion Gap BUN Creatinine Creat Clearance w eGFR Random Glucose Calcium Phosphorus Random Vancomycin Blood Type A POSITIVE Antibody Screen Negative Crossmatch See Detail Current Medications Generic Name Dose Route Start Last Admin Trade Name Freq PRN Reason Stop Dose Admin Acetaminophen 650 mg 07/28/18 13:56 08/04/18 09:38 Tylenol - PO 650 mg Q6H PRN Administration PAIN LEVEL 1-5 Amoxicillin/Clavulanate Potassium 1 tab 08/04/18 12:00 08/04/18 14:36 Augmentin - 250mg Tablet PO 1 tab DAILY MARCUS Administration Aspirin 81 mg 07/29/18 11:30 08/04/18 14:36 Ecotrin - PO 81 mg DAILY MARCUS Administration Atenolol 50 mg 07/29/18 10:00 08/04/18 14:33 Tenormin - PO 50 mg DAILY MARCUS Administration Atorvastatin Calcium 40 mg 07/29/18 22:00 08/03/18 21:33 Lipitor - PO 40 mg HS MARCUS Administration Collagenase 1 applic 07/29/18 10:00 08/04/18 14:33 Santyl - TP 1 applic DAILY MARCUS Administration Protocol Escitalopram Oxalate 10 mg 07/29/18 10:00 08/04/18 14:33 Lexapro - PO 10 mg DAILY MARCUS Administration Ferrous Sulfate 300 mg 07/31/18 17:30 08/04/18 18:35 Feosol PO 300 mg TIDCM MARCUS Administration Heparin Sodium (Porcine) 5,000 unit 08/02/18 17:00 08/04/18 14:36 Heparin - SQ 5,000 unit TID MACRUS Administration Memantine 5 mg 07/28/18 22:00 08/04/18 14:36 Namenda - PO 5 mg BID MARCUS Administration Ondansetron HCl 4 mg 07/28/18 13:56 Zofran Injection IVPUSH Q6H PRN NAUSEA AND/OR VOMITING Pantoprazole Sodium 40 mg 07/29/18 11:30 08/04/18 14:39 Protonix Iv IVPUSH Not Given BID MARCUS Promethazine HCl 12.5 mg 07/28/18 13:56 Phenergan Injection - IVPB Q6H PRN NAUSEA-FOR RESCUE AFTER 15 MIN Senna 2 tab 07/29/18 16:30 08/02/18 21:31 Senna - PO 2 tab HS PRN Administration CONSTIPATION Sevelamer Carbonate 800 mg 07/28/18 17:30 08/04/18 18:35 Renvela - PO 800 mg TIDCM MARCUS Administration Trazodone HCl 50 mg 07/28/18 22:00 08/03/18 21:33 Desyrel - PO 50 mg HS MARCUS Administration ASSESSMENT AND PLAN: 78 year old male with HTN, Atrial Fibrillation (not on AC), ESRD on HD, Colon Ca s/p Resection, Renal OSteodystrophy, PAD, Dementia, admitted from [facility] with bilateral LE ulcers. 1. PAD with bilateral LE ulcers POD #7 s/p right femoral artery revascularization with arthrectomy and angioplasty, and left extrernal iliac artery angioplasty. POD #9 s/p right heel ulcer debridement. Was on Zosyn 2.25 grams Q8H - as per ID can switch to Augmentin with Vanco post- HD. Podiatry cleared for discharge. No ongoing acute issues requiring hospitalization. Afebrile, Hemodynamically stable. Awaiting Insurance Authorization for return to [facility] with wound care - daily Santyl dressings. 2. ESRD on HD - Abx post HD - received HD today 08/04/18 3. Atrial Fibrillation - not on AC due to recent GI bleed. Has been on Eliquis and Coumadin in the past. 4. Coronary artery disease - Continue Aspirin, BB, Statin. 5. Hypertension - continue Atenolol 6. Hyperlipidema - continue Atorvastatin 7. Anxiety - continue Lexapro 10mg PO daily, Xanax 0.5mg PO BID PRN 8. Dementia - Continue Memantine 5and Renvela 9. Insomnia - Continue Trazodone and Zolpidem 5mg 10. Anemia of Chronic Disease, likely sec to ESRD - further management as per Nephrology. GI Px - Protonix DVT Px - Heparin SQ
[2018-08-04] MEDS: ATORVASTATIN CA 40 MG TABLET (FP) PO SCH (21:05)
[2018-08-04] MEDS: traZODone HCL 50 MG TABLET (FP) PO SCH (21:05)
[2018-08-04] MEDS ORDERED: ZOLPIDEM TARTRATE 5 MG TABLET PO ONE (22:51)
[2018-08-05] MEDS ORDERED: traMADol HCL 50 MG TABLET PO ONE (00:09)
[2018-08-05] MEDS: HEPARIN NA (PORCINE) 5,000 UNITS/ML 1ML VIAL SQ SCH ×2 (05:34→13:35)
[2018-08-05] MEDS: ACETAMINOPHEN 325 MG TABLET (FP) PO PRN (06:39)
[2018-08-05] MEDS: FERROUS SO4 300 MG/5 ML ORAL SOLN UNIT DOSE CUPS PO SCH ×2 (08:21→13:34)
[2018-08-05] MEDS: SEVELAMER CARBONATE 800 MG TAB (FP) PO SCH ×2 (08:21→13:34)
[2018-08-05] MEDS ORDERED: PT OWN MED DRAWER 7, Y5N ONE (09:33)
[2018-08-05] MEDS ORDERED: ALPRAZolam 0.25 MG TABLET PO PRN (10:08)
[2018-08-05] MEDS: MEMANTINE HCL 5 MG TABLET (UD) PO SCH (10:53)
[2018-08-05] MEDS: AMOX TR/POT CLAV 250MG/125MG TABLETS PO SCH (10:54)
[2018-08-05] MEDS: COLLAGENASE CLOSTRIDIUM HIST. 30 GRAMS TUBE TP SCH (10:54)
[2018-08-05] MEDS: ASPIRIN COATED 81 MG TABLET.EC PO SCH (10:54)
[2018-08-05] MEDS: ATENOLOL 50 MG TABLET (FP) PO SCH (10:54)
[2018-08-05] MEDS: ESCITALOPRAM OXALATE 10 MG TABLET (FP) PO SCH (10:54)
--- NOTE | 2018-08-05 12:40 | PN ---
Progress Note (short form) - Note Progress Note: Renal follow up for ESRD on HD Pt seen and examined at the bedside feels sleepy, no sob, cp, abd pain as per nurse pt just got xanex Vital Signs Temperature 97.5 F L 08/05/18 09:00 Pulse Rate 92 H 08/05/18 09:00 Respiratory Rate 20 08/05/18 09:00 Blood Pressure 141/60 08/05/18 09:00 O2 Sat by Pulse Oximetry (%) 92 L 08/05/18 09:00 NAD neck supple, no JVD RRR CTA trace edema in LE CBC, BMP 08/04/18 05:35 08/04/18 05:35 Current Medications Acetaminophen (Tylenol -) 650 mg PO Q6H PRN PRN Reason: PAIN LEVEL 1-5 Last Admin: 08/05/18 06:39 Dose: 650 mg Alprazolam (Xanax -) 0.5 mg PO BID PRN PRN Reason: AGITATION Last Admin: 08/05/18 10:43 Dose: 0.5 mg Amoxicillin/Clavulanate Potassium (Augmentin - 250mg Tablet) 1 tab PO DAILY [facility] Last Admin: 08/05/18 10:54 Dose: 1 tab Aspirin (Ecotrin -) 81 mg PO DAILY [facility] Last Admin: 08/05/18 10:54 Dose: 81 mg Atenolol (Tenormin -) 50 mg PO DAILY [facility] Last Admin: 08/05/18 10:54 Dose: 50 mg Atorvastatin Calcium (Lipitor -) 40 mg PO HS [facility] Last Admin: 08/04/18 21:05 Dose: 40 mg Collagenase (Santyl -) 1 applic TP DAILY [facility]; Protocol Last Admin: 08/05/18 10:54 Dose: 1 applic Escitalopram Oxalate (Lexapro -) 10 mg PO DAILY [facility] Last Admin: 08/05/18 10:54 Dose: 10 mg Ferrous Sulfate (Feosol) 300 mg PO TIDCM [facility] Last Admin: 08/05/18 08:21 Dose: 300 mg Heparin Sodium (Porcine) (Heparin -) 5,000 unit SQ TID [facility] Last Admin: 08/05/18 05:34 Dose: 5,000 unit Memantine (Namenda -) 5 mg PO BID [facility] Last Admin: 08/05/18 10:53 Dose: 5 mg Ondansetron HCl (Zofran Injection) 4 mg IVPUSH Q6H PRN PRN Reason: NAUSEA AND/OR VOMITING Pantoprazole Sodium (Protonix -) 40 mg PO BID [facility] Promethazine HCl (Phenergan Injection -) 12.5 mg IVPB Q6H PRN PRN Reason: NAUSEA-FOR RESCUE AFTER 15 MIN Senna (Senna -) 2 tab PO HS PRN PRN Reason: CONSTIPATION Last Admin: 08/02/18 21:31 Dose: 2 tab Sevelamer Carbonate (Renvela -) 800 mg PO TIDCM [facility] Last Admin: 08/05/18 08:21 Dose: 800 mg Trazodone HCl (Desyrel -) 50 mg PO HS [facility] Last Admin: 08/04/18 21:05 Dose: 50 mg 78 year old gentleman with history of ESRD on HD (MWF), Hypertension, Colon Ca s /p resection, Afib, PVD who presented with non-healing lower leg wounds. 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
--- NOTE | 2018-08-05 14:07 | PN ---
Teaching Attending Note Name of Resident: Bladimir Staples ATTENDING PHYSICIAN STATEMENT I saw and evaluated the patient. I reviewed the resident's note and discussed the case with the resident. I agree with the resident's findings and plan as documented. SUBJECTIVE: Feels well. No complaints. No pain/fever/chills. No CP/Palps/SOB. Tolerating oral intake. OBJECTIVE: Afebrile, Hemodynamically Stable. Last Vital Signs Temp Pulse Resp BP Pulse Ox 97.5 F L 92 H 20 141/60 92 L 08/05/18 09:00 08/05/18 09:00 08/05/18 09:00 08/05/18 09:00 08/05/18 09:00 HEENT - Atraumatic, Normocephalic Heart - S1, S2, RRR Lungs - clear to auscultation Abdomen - Soft, non-tender. Bowel Sounds normal. Extremities - R heel dressed s/p surgery. Mild L foot edema. No calf tenderness. Current Medications Generic Name Dose Route Start Last Admin Trade Name Goq PRN Reason Stop Dose Admin Acetaminophen 650 mg 07/28/18 13:56 08/05/18 06:39 Tylenol - PO 650 mg Q6H PRN Administration PAIN LEVEL 1-5 Alprazolam 0.5 mg 08/05/18 10:08 08/05/18 10:43 Xanax - PO 0.5 mg BID PRN Administration AGITATION Amoxicillin/Clavulanate Potassium 1 tab 08/04/18 12:00 08/05/18 10:54 Augmentin - 250mg Tablet PO 1 tab DAILY MARCUS Administration Aspirin 81 mg 07/29/18 11:30 08/05/18 10:54 Ecotrin - PO 81 mg DAILY MARCUS Administration Atenolol 50 mg 07/29/18 10:00 08/05/18 10:54 Tenormin - PO 50 mg DAILY MARCUS Administration Atorvastatin Calcium 40 mg 07/29/18 22:00 08/04/18 21:05 Lipitor - PO 40 mg HS MARCUS Administration Collagenase 1 applic 07/29/18 10:00 08/05/18 10:54 Santyl - TP 1 applic DAILY MARCUS Administration Protocol Escitalopram Oxalate 10 mg 07/29/18 10:00 08/05/18 10:54 Lexapro - PO 10 mg DAILY MARCUS Administration Ferrous Sulfate 300 mg 07/31/18 17:30 08/05/18 13:34 Feosol PO 300 mg TIDCM MARCUS Administration Heparin Sodium (Porcine) 5,000 unit 08/02/18 17:00 08/05/18 13:35 Heparin - SQ 5,000 unit TID MARCUS Administration Memantine 5 mg 07/28/18 22:00 08/05/18 10:53 Namenda - PO 5 mg BID MARCUS Administration Ondansetron HCl 4 mg 07/28/18 13:56 Zofran Injection IVPUSH Q6H PRN NAUSEA AND/OR VOMITING Pantoprazole Sodium 40 mg 08/05/18 22:00 Protonix - PO BID MARCUS Promethazine HCl 12.5 mg 07/28/18 13:56 Phenergan Injection - IVPB Q6H PRN NAUSEA-FOR RESCUE AFTER 15 MIN Senna 2 tab 07/29/18 16:30 08/02/18 21:31 Senna - PO 2 tab HS PRN Administration CONSTIPATION Sevelamer Carbonate 800 mg 07/28/18 17:30 08/05/18 13:34 Renvela - PO 800 mg TIDCM MARCUS Administration Trazodone HCl 50 mg 07/28/18 22:00 08/04/18 21:05 Desyrel - PO 50 mg HS MARCUS Administration ASSESSMENT AND PLAN: 78 year old male with HTN, Atrial Fibrillation (not on AC), ESRD on HD, Colon Ca s/p Resection, Renal OSteodystrophy, PAD, Dementia, admitted from [facility] with bilateral LE ulcers. 1. PAD with bilateral LE ulcers and Osteomyelitis. POD #8 s/p right femoral artery revascularization with arthrectomy and angioplasty, and left extrernal iliac artery angioplasty. POD #10 s/p right heel ulcer debridement. NM Bone Scan - osteomyelitis distal tibia. Was on Zosyn 2.25 grams Q8H - as per ID, switched to Augmentin with Vanco post- HD for 4 weeks. Podiatry cleared for discharge. No ongoing acute issues requiring hospitalization. Afebrile, Hemodynamically stable. Awaiting Insurance Authorization for return to [facility] with wound care - daily Santyl dressings. 2. ESRD on HD - Abx post HD - received HD last 08/04/18 3. Atrial Fibrillation - Continue Atenolol. Not on AC due to recent GI bleed. Has been on Eliquis and Coumadin in the past. 4. Coronary artery disease - Continue Aspirin, BB, Statin. 5. Hypertension - continue Atenolol 6. Hyperlipidema - continue Atorvastatin 7. Anxiety - continue Lexapro 10mg PO daily, Xanax 0.5mg PO BID PRN 8. Dementia - Continue Memantine 5and Renvela 9. Insomnia - Continue Trazodone and Zolpidem 5mg 10. Anemia of Chronic Disease, likely sec to ESRD - further management with Epo as per Nephrology. GI Px - Protonix DVT Px - Heparin SQ Medically stable for discharge back to [facility] with regular wound care and Vascular Surgery follow up.
[2018-08-05] MEDS: PANTOPRAZOLE SODIUM 40 MG VIAL IVPUSH SCH (14:18)
[2018-08-05 14:24] VITALS: BP 122/50; PULSE 82; TEMP 98.2
[2018-08-05] MEDS ORDERED: PANTOPRAZOLE 40 MG TABLET (FP) PO SCH (22:00)
== END 2018-08-05 16:58 | DRG 270 ==
LOC: JER 12:32 → JERBED 17:11 → J5S 22:38
PROVIDERS: ADMIT Hospitalist
PROC: 0LBN0ZZ Excision of Right Lower Leg Tendon, Open Approach (ICD-10-PCS; principal; 2018-07-26 13:00)
PROC: 04CK3ZZ Extirpation of Matter from Right Femoral Artery, Percutaneous Approach (ICD-10-PCS; 2018-07-28)
PROC: 047K3Z6 (ICD-10-PCS; 2018-07-28)
PROC: 047J3ZZ Dilation of Left External Iliac Artery, Percutaneous Approach (ICD-10-PCS; 2018-07-28)
PROC: 30233N1 Transfusion of Nonautologous Red Blood Cells into Peripheral Vein, Percutaneous Approach (ICD-10-PCS; 2018-08-04)
DX: I70.261 Atherosclerosis of native arteries of extremities with gangrene, right leg (principal); N18.6 End stage renal disease; I12.0 Hypertensive chronic kidney disease with stage 5 chronic kidney disease or end stage renal disease; L03.115 Cellulitis of right lower limb; L03.116 Cellulitis of left lower limb; L97.429 Non-pressure chronic ulcer of left heel and midfoot with unspecified severity; M86.8X7 Other osteomyelitis, ankle and foot; Z99.2 Dependence on renal dialysis; F03.90 Unspecified dementia, unspecified severity, without behavioral disturbance, psychotic disturbance, mood disturbance, and anxiety; Z85.038 Personal history of other malignant neoplasm of large intestine; I48.91 Unspecified atrial fibrillation; I25.10 Atherosclerotic heart disease of native coronary artery without angina pectoris; F41.9 Anxiety disorder, unspecified; G47.00 Insomnia, unspecified; D63.1 Anemia in chronic kidney disease
CPT/HCPCS: 36415; 36430; 36511; 70450-TC; 71045-TC-FY; 71046-TC-FY; 73630-TC-LT; 73630-TC-RT-FY; 75635-TC; 76000-TC-FY; 78315-TC; 80048; 80053; 83735; 84100; 84484; 85025; 85027; 85610; 85651; 85730; 86140; 86704; 86706; 86708; 86803; 86850; 86900; 86901; 86922; 87040; 87340; 88304-TC; 93005; 93010; 93970-TC; 94010; 94760; 99282-25; A9503; G0463-25; G0480; J0885; J1644; P9038; P9058

== ENCOUNTER 2018-11-01 13:23 | Inpatient (IN) | payer OTHER, MEDICARE ==
--- NOTE | 2018-11-01 13:37 | PDOC ---
History of Present Illness - General Chief Complaint: SIRS, Suspected/Possible Stated Complaint: Altered Mental Status - History of Present Illness Initial Comments: The pt is an 78M w/ a history HTN, Atrial Fibrillation (ASA), ESRD on HD, Colon ca s/p resection, Renal Osteodystrophy, PAD, Dementia, RLE wound, L foot dry gangrene who stays at [facility] presents from HD today for evaluation of AMS. Per son, at baseline, pt is interactive, follows commands, and is oriented x3 but will give tangential replies or forget conversational topics. Per his aid, he is usually able to transition to wheelchair with minimal one-person assistance but has required full assistance over this weekends. Per the aid, the pt was also recently admitted at [facility] but neither the aid nor the son know why. s/p recent LLE angioplasty by Dr. Martinez 11/01/18 13:49 Past History - Past Medical History Allergies/Adverse Reactions: Allergies Allergy/AdvReac Type Severity Reaction Status Date / Time No Known Allergies Allergy Verified 11/01/18 13:43 Home Medications: Ambulatory Orders Alprazolam [Xanax] 0.5 mg PO BID PRN 08/15/16 Atenolol [Tenormin -] 50 mg PO DAILY 08/15/16 Zolpidem Tartrate [Ambien] 5 mg PO HS 08/15/16 traZODone HCL [Trazodone HCl] 50 mg PO HS 08/15/16 Docusate Sodium [Colace] 2 cap PO HS 06/30/18 Escitalopram Oxalate [Lexapro -] 10 mg PO DAILY 06/30/18 Memantine HCl [Namenda -] 5 mg PO BID 06/30/18 Polyethylene Glycol 3350 [Laxaclear] 1,700 gm PO DAILY 06/30/18 Sennosides [Senna Concentrate] 8.6 mg PO DAILY 06/30/18 Sevelamer Carbonate [Renvela -] 800 mg PO TID 06/30/18 Vit B Comp No.3/Folic/C/Biotin [Nephro-Louie Rx Tablet] 1 each PO DAILY 06/30/18 Acetaminophen [Tylenol .Regular Strength -] 650 mg PO Q6H PRN tablet 08/04/18 Aspirin Coated [Ecotrin -] 81 mg PO DAILY tablet.ec 08/04/18 Aspirin [ASA -] 81 mg PO DAILY #30 tab.chew 08/04/18 Atorvastatin Ca [Lipitor] 40 mg PO HS tablet 08/04/18 Collagenase Clostridium Hist. [Santyl -] 1 applic TP DAILY tube 08/04/18 Cinacalcet HCl [Sensipar -] 60 mg PO DAILY 11/01/18 Clopidogrel Bisulfate [Plavix] 75 mg PO DAILY 11/01/18 Oxycodone HCl/Acetaminophen [Percocet 5-325 mg Tablet] 1 tab PO TID PRN Cancer: Yes (COLON AND PROSTATE) Cardiac Disorders: Yes (A.FIB) COPD: No Dementia: No (forgetful) Dialysis: Yes (M-W-F,RT ARM FISTULA) Disorders: Yes (ESRD, m-w-f) HTN: Yes Psychiatric Problems: Yes (ANXEITY) - Surgical History Abdominal Surgery: Yes (COLON CA) Orthopedic Surgery: Yes - Suicide/Smoking/Psychosocial Hx Smoking History: Never smoked Have you smoked in the past 12 months: No Hx Alcohol Use: No Drug/Substance Use Hx: No Substance Use Type: None Hx Substance Use Treatment: No Review of Systems - Review of Systems Able to Perform ROS?: No (2/2 medical condition) *Physical Exam - Vital Signs Vital Signs Temp Pulse Resp BP Pulse Ox 95.9 F L 80 24 H 104/74 97 11/01/18 19:44 11/01/18 21:42 11/01/18 21:02 11/01/18 22:17 11/01/18 21:02 - Physical Exam Comments: GENERAL: Tired appearing and oriented to person/place/time HEAD: No signs of trauma, normocephalic, atraumatic EYES: PERRLA, EOMI, sclera anicteric, conjunctiva clear ENT: nares patent, oropharynx clear without exudates. Dry mucosa LUNGS: No distress, speaks in phrases, poor inspiratory effort but equal breath sounds b/l HEART: Regular rate and rhythm, normal S1 and S2, no murmurs appreciated, b/l radial 2+ ABDOMEN: Soft, protuberant, no grimace to palpation, normoactive bowel sounds EXTREMITIES: L inguinal ecchymosis (recent reported LLE angioplasty); able to straight leg raise BLE; RUE fistula w/ palpable thrill; L foot with dry gangrene of 2nd toe, RLE with chronic wound w/o migrating cellulitis NEUROLOGICAL: Oriented x3, would initially follow simple commands, speech is mumbled, opens eyes to touch, withdraws to pain in all four extremities SKIN: cool, dry, fingertips cyanotic, wounds as above 11/01/18 14:08 ED Treatment Course - LABORATORY CBC & Chemistry Diagram: 11/01/18 14:45 11/01/18 14:45 Medical Decision Making - Medical Decision Making The pt is an 78M w/ a history of dementia, ESRD on iHD, HTN, PVD, RLE wound and L foot dry gangrene who presents for evaluation of worsening mental status ED Course Sepsis w/u initiated CXR ECG IVF, IV abx Pt started on broad spectrum abx Lactate 2.2, pt given 500cc NS, repeat BP improved s/p fluids Initial trop I 1.15, ASA 243 given as pt takes ASA 81mg at home Trop and Lactate to be repeated at 1745 Plan for admission for sepsis to Tele 11/01/18 16:38 Pt self-removed USIV, another replaced by myself in L brachium Repeat trop I improved to 1.01, will continue to trend BP initially improved s/p IVF, pt's SBP 80s, will give addition 500cc NS at slow rate No leukocytosis Anemia, Hgb 10.8, will not transfuse at this time K wnl Cr 8.0, pt on iHD Slight transaminitis, possibly 2/2 hypotension Dispo: Admit 11/01/18 21:16 UA significant for UTI -Will re-dose Zosyn at 2300 11/01/18 22:04 *DC/Admit/Observation/Transfer Diagnosis at time of Disposition: ESRD needing dialysis, Peripheral arterial disease Sepsis Qualifiers: Sepsis type: sepsis due to unspecified organism Qualified Code(s): A41.9 - Sepsis, unspecified organism HTN (hypertension) Qualifiers: Hypertension type: unspecified Qualified Code(s): I10 - Essential (primary) hypertension - Discharge Dispostion Condition at time of disposition: Guarded Decision to Admit order: Yes - Referrals - Patient Instructions - Post Discharge Activity
--- NOTE | 2018-11-01 14:42 | PDOC ---
Attending Attestation - Resident Resident Name: Boyd Romeroan - ED Attending Attestation I have performed the following: I have examined & evaluated the patient, The case was reviewed & discussed with the resident, I agree w/resident's findings & plan - HPI HPI: 11/01/18 14:35 78y/o M h/o ESRD on M/W/F dialysis, HTN, afib from dialysis for generalized weakness/AMS. Pt awoke with increased weakness today, had more trouble moving from bed-chair than usual. Went to scheduled dialysis and HD initiated but weakness/confusion persisted so HD stopped and sent to ED. has been receiving abx at HD, ? for osteomyelitis. - Physicial Exam PE: 11/01/18 14:39 slight hypothermia on rectal exam alert but weak appearing, somnolent but arousable to voice and follows commands neck supple distant lung sounds b/l heart regular abd soft tender RLE with bandage in place, 1+ pedal edema well perfused, no drainage/ cellulitis - Critical Care Time Total Critical Care Time: 95 Critical Care Statement: The care of this patient involved high complexity decision making to prevent further life threatening deterioration of the patient 's condition and/or to evaluate & treat vital organ system(s) failure or risk of failure. - Medical Decision Making 11/01/18 14:40 78-year-old male from dialysis with altered mental status and generalized weakness since this morning, somnolent here and slight hypokalemia but hemodynamically stable. Presentation most concerning for sepsis, r/o metabolic abnormality. stat EKG with baseline afib and intraventricular block/LBBB neuro nonfocal, check CT head labs, cxr admit 11/01/18 16:34 mental status improved, CT head without acute pathology. no leukocytosis, labs notable for baseline elevated Cr, normal K, elevated trop (? demand v. renal related). received broad abx for hypothermia/AMS, lactate 2.2 will proceed with admission to [facility], BP 110/60 Heart Score/ECG Review #1 ECG reviewed & interpreted by me at: 13:45 Compared to previous ECG there are: No significant change (c/w 08/03/18) 11/01/18 14:43 afib at 83, LBBB, qtc 509, no acute ischemic change
[2018-11-01] MEDS ORDERED: VANCOMYCIN 1 GM in D5W (PRE-DOCKED) 1,000 MG/250 ML IVPB ONE (14:52)
[2018-11-01] MEDS ORDERED: PIPERACILLIN/TAZOB 3.375 GM 3.375 GM in DEXTROSE 5%-WATER - 50 ML IVPB ONE (14:52)
[2018-11-01] MEDS ORDERED: PIPERACILLIN/TAZOB 3.375 GM 3.375 GM/50 ML BAG IVPB ONE (15:02)
[2018-11-01] MEDS ORDERED: VANCOMYCIN 1 GRAM (PRE-DOCKED) 1,000 MG/250 ML BAG IVPB ONE (15:02)
[2018-11-01 15:14] LABS: BASO % 0.7 % (0-2.0); EOS % 1.9 % (0-4.5); HEMATOCRIT 34.4 % (35.4-49); HEMOGLOBIN 10.8 GM/dL (11.7-16.9); LYMPH % 14.2 % (8-40); MCH 29.4 pg (25.7-33.7); MCHC 31.4 g/dl (32.0-35.9); MEAN CELL VOLUME 93.6 fl (80-96); MONO % 13.5 % (3.8-10.2); NEUT % 69.7 % (42.8-82.8); PLATELET COUNT 80 K/MM3 (134-434); RBC 3.68 M/mm3 (4.00-5.60); WHITE BLOOD COUNT 6.1 K/mm3 (4.0-10.0)
[2018-11-01 15:21] LABS: VENOUS PC02 65.4 mmHg (41-51); VENOUS PH 7.23 (7.31-7.41); VENOUS PO2 28.8 mmHg (30-40)
[2018-11-01 15:23] LABS: INR 1.28 (0.83-1.09); PROTHROMBIN TIME (PATIENT) 15.1 SEC (9.7-13.0)
[2018-11-01 15:26] LABS: ACTIVATED PTT 32.8 SECONDS (25.2-36.5)
[2018-11-01 15:35] LABS: ALBUMIN 2.6 g/dl (3.4-5.0); ALK PHOS 175 U/L (45-117); ANION GAP 9 MMOL/L (8-16); BILIRUBIN,TOTAL 0.5 mg/dL (0.2-1); BLOOD UREA NITROGEN 71 mg/dL (7-18); CALCIUM 8.8 mg/dL (8.5-10.1); CHLORIDE 98 mmol/L (98-107); CO2 27 mmol/L (21-32); GLUCOSE,RANDOM 107 mg/dL (74-106); POTASSIUM 4.4 mmol/L (3.5-5.1); SGOT/AST 63 U/L (15-37); SGPT/ALT 81 U/L (13-61); SODIUM 135 mmol/L (136-145); TOT PROT 5.9 g/dl (6.4-8.2)
[2018-11-01] MEDS ORDERED: SODIUM CHLORIDE 0.9% 500 ML INFUS.BAG IV ONE ×2 (15:42→21:13)
[2018-11-01] MEDS ORDERED: ASPIRIN 81 MG CHEWABLE TABLETS PO ONE (15:49)
[2018-11-01] MEDS ORDERED: ASPIRIN 81 MG CHEWABLE TABLETS ONE (16:19)
[2018-11-01] MEDS ORDERED: PATIENT'S OWN MEDICATION (NON-FORMULARY) (Alprazolam [Xanax] 0.5 MG) PO PRN (19:39)
--- NOTE | 2018-11-01 19:46 | HP ---
Admitting History and Physical - Primary Care Physician PCP: Jayde Richardson - Admission History of Present Illness: 78M w/ a history HTN, Atrial Fibrillation (ASA), ESRD on HD, Colon ca s/p resection, Renal Osteodystrophy, PAD, Dementia, RLE wound, L foot dry gangrene who stays at [facility] presents from HD today for evaluation of AMS. s/p recent LLE angioplasty by Dr. Martinez Per son, at baseline, pt is interactive, follows commands, and is oriented x3 but will give tangential replies or forget conversational topics. Per his aid, he is usually able to transition to wheelchair with minimal one-person assistance but has required full assistance over this weekends. - Past Medical History Cardiovascular: Yes: CAD, HTN Renal/: Yes: Renal Failure - Past Surgical History Past Surgical History: Yes: AV Fistula/Graft - Smoking History Smoking history: Never smoked Have you smoked in the past 12 months: No - Alcohol/Substance Use Hx Alcohol Use: No History of Substance Use: reports: None - Social History ADL: Support Services History of Recent Travel: No Home Medications - Allergies Allergies/Adverse Reactions: Allergies Allergy/AdvReac Type Severity Reaction Status Date / Time No Known Allergies Allergy Verified 11/01/18 13:43 - Home Medications Home Medications: Ambulatory Orders Alprazolam [Xanax] 0.5 mg PO BID PRN 08/15/16 Atenolol [Tenormin -] 50 mg PO DAILY 08/15/16 Zolpidem Tartrate [Ambien] 5 mg PO HS 08/15/16 traZODone HCL [Trazodone HCl] 50 mg PO HS 08/15/16 Docusate Sodium [Colace] 2 cap PO HS 06/30/18 Escitalopram Oxalate [Lexapro -] 10 mg PO DAILY 06/30/18 Memantine HCl [Namenda -] 5 mg PO BID 06/30/18 Polyethylene Glycol 3350 [Laxaclear] 1,700 gm PO DAILY 06/30/18 Sennosides [Senna Concentrate] 8.6 mg PO DAILY 06/30/18 Sevelamer Carbonate [Renvela -] 800 mg PO TID 06/30/18 Vit B Comp No.3/Folic/C/Biotin [Nephro-Louie Rx Tablet] 1 each PO DAILY 06/30/18 Acetaminophen [Tylenol .Regular Strength -] 650 mg PO Q6H PRN tablet 08/04/18 Aspirin Coated [Ecotrin -] 81 mg PO DAILY tablet.ec 08/04/18 Aspirin [ASA -] 81 mg PO DAILY #30 tab.chew 08/04/18 Atorvastatin Ca [Lipitor] 40 mg PO HS tablet 08/04/18 Collagenase Clostridium Hist. [Santyl -] 1 applic TP DAILY tube 08/04/18 Cinacalcet HCl [Sensipar -] 60 mg PO DAILY 11/01/18 Clopidogrel Bisulfate [Plavix] 75 mg PO DAILY 11/01/18 Oxycodone HCl/Acetaminophen [Percocet 5-325 mg Tablet] 1 tab PO TID PRN Physical Examination Vital Signs: Vital Signs Temperature 96.4 F L 11/01/18 13:25 Pulse Rate 72 11/01/18 18:23 Respiratory Rate 24 H 11/01/18 15:40 Blood Pressure 103/72 11/01/18 18:23 O2 Sat by Pulse Oximetry (%) 16 L 11/01/18 16:30 Constitutional: Yes: No Distress HENT: Yes: Atraumatic Neck: Yes: Supple Cardiovascular: Yes: Regular Rate and Rhythm Respiratory: Yes: CTA Bilaterally Gastrointestinal: Yes: Normal Bowel Sounds Extremities: Yes: Other (L big toe gangrene??) Neurological: Yes: Alert, Oriented Labs: CBC, BMP 11/01/18 14:45 11/01/18 14:45 Imaging - Results X-ray: Report Reviewed Cat Scan: Report Reviewed Problem List - Problems (1) ESRD needing dialysis Assessment/Plan: on hd renal on board Code(s): N18.6 - END STAGE RENAL DISEASE; Z99.2 - DEPENDENCE ON RENAL DIALYSIS (2) HTN (hypertension) Assessment/Plan: monitor continue meds Code(s): I10 - ESSENTIAL (PRIMARY) HYPERTENSION Qualifiers: Hypertension type: unspecified Qualified Code(s): I10 - Essential (primary ) hypertension (3) Peripheral arterial disease Assessment/Plan: will call vascular monitor Code(s): I73.9 - PERIPHERAL VASCULAR DISEASE, UNSPECIFIED (4) Sepsis Assessment/Plan: abx per id cxs negative to date Code(s): A41.9 - SEPSIS, UNSPECIFIED ORGANISM Qualifiers: Sepsis type: sepsis due to unspecified organism Qualified Code(s): A41.9 - Sepsis, unspecified organism (5) Atrial fibrillation with RVR Code(s): I48.91 - UNSPECIFIED ATRIAL FIBRILLATION (6) ESRD (end stage renal disease) Code(s): N18.6 - END STAGE RENAL DISEASE Assessment/Plan Laboratory Tests 11/01/18 11/01/18 11/01/18 14:42 14:45 14:45 WBC 6.1 RBC 3.68 L Hgb 10.8 L Hct 34.4 L D MCV 93.6 MCH 29.4 MCHC 31.4 L RDW 21.0 H Plt Count 80 L D MPV 10.0 D Absolute Neuts (auto) 4.2 Neutrophils % 69.7 Lymphocytes % 14.2 D Monocytes % 13.5 H Eosinophils % 1.9 Basophils % 0.7 Nucleated RBC % 1 H PT with INR 15.10 H INR 1.28 H PTT (Actin FS) 32.8 VBG pH POC VBG pCO2 POC VBG pO2 VBG HCO3 VBG O2 Sat (Emilie) VBG Base Excess Sodium Potassium Chloride Carbon Dioxide Anion Gap BUN Creatinine Creat Clearance w eGFR Random Glucose Lactic Acid 2.2 H* Calcium Total Bilirubin AST ALT Alkaline Phosphatase Troponin I Total Protein Albumin 11/01/18 11/01/18 11/01/18 14:45 14:45 14:45 WBC RBC Hgb Hct MCV MCH MCHC RDW Plt Count MPV Absolute Neuts (auto) Neutrophils % Lymphocytes % Monocytes % Eosinophils % Basophils % Nucleated RBC % PT with INR INR PTT (Actin FS) VBG pH 7.23 L POC VBG pCO2 65.4 H POC VBG pO2 28.8 L VBG HCO3 26.7 VBG O2 Sat (Emilie) 36.8 L VBG Base Excess -1.3 Sodium 135 L Potassium 4.4 Chloride 98 Carbon Dioxide 27 Anion Gap 9 BUN 71 H Creatinine 8.0 H* Creat Clearance w eGFR 6.52 Random Glucose 107 H Lactic Acid Calcium 8.8 Total Bilirubin 0.5 AST 63 H ALT 81 H Alkaline Phosphatase 175 H Troponin I 1.15 H* Total Protein 5.9 L Albumin 2.6 L 11/01/18 17:24 WBC RBC Hgb Hct MCV MCH MCHC RDW Plt Count MPV Absolute Neuts (auto) Neutrophils % Lymphocytes % Monocytes % Eosinophils % Basophils % Nucleated RBC % PT with INR INR PTT (Actin FS) VBG pH POC VBG pCO2 POC VBG pO2 VBG HCO3 VBG O2 Sat (Emilie) VBG Base Excess Sodium Potassium Chloride Carbon Dioxide Anion Gap BUN Creatinine Creat Clearance w eGFR Random Glucose Lactic Acid 1.1 Calcium Total Bilirubin AST ALT Alkaline Phosphatase Troponin I Total Protein Albumin Active Medications Generic Name Dose Route Start Last Admin Trade Name Freq PRN Reason Stop Dose Admin Aspirin 81 mg 11/02/18 10:00 Asa - PO DAILY [facility] Atenolol 50 mg 11/02/18 10:00 Tenormin - PO DAILY [facility] Atorvastatin Calcium 40 mg 11/01/18 22:00 Lipitor - PO HS [facility] Escitalopram Oxalate 10 mg 11/02/18 10:00 Lexapro - PO DAILY [facility] Heparin Sodium (Porcine) 5,000 unit 11/01/18 22:00 Heparin - SQ BID [facility] Non-Formulary Medication 0.5 mg 11/01/18 19:39 Alprazolam [Xanax] PO BID PRN ANXIETY Trazodone HCl 50 mg 11/01/18 22:00 Desyrel - PO HS MARCUS
[2018-11-01] MEDS ORDERED: ALPRAZolam 0.25 MG TABLET PO PRN (20:21)
[2018-11-01 20:56] LABS: URINE APPEARANCE Clear; URINE BILIRUBIN Negative (NEGATIVE); URINE COLOR Yellow; URINE GLUCOSE (UA) Negative (NEGATIVE); URINE KETONE Trace (NEGATIVE); URINE LEUK ESTERASE 2+ (NEGATIVE); URINE NITRITE Negative (NEGATIVE); URINE PROTEIN 3+ (NEGATIVE); URINE UROBILINOGEN 0.2 mg/dL (0.2-1.0)
[2018-11-01 21:56] LABS: URINE BACTERIA MANY /hpf (NEGATIVE); URINE WBC 20-30 /hpf (0-5)
[2018-11-01] MEDS ORDERED: PIPERACILLIN/TAZOB 2.25 GM 2.25 GM/50 ML BAG IVPB ONE (22:31)
[2018-11-01] MEDS ORDERED: HEPARIN NA (PORCINE) 5,000 UNITS/ML 1ML VIAL ONE ×2 (22:31)
[2018-11-01] MEDS: HEPARIN NA (PORCINE) 5,000 UNITS/ML 1ML VIAL SQ SCH (22:40)
[2018-11-01 22:49] LABS: ANISOCYTOSIS 1+; OVALOCYTE 1+; TARGET CELLS 1+
[2018-11-01] MEDS ORDERED: PIPERACILLIN/TAZOB 2.25 GM 2.25 GM in DEXTROSE 5%-WATER - 50 ML IVPB ONE (23:00)
[2018-11-01] MEDS: ATORVASTATIN CA 40 MG TABLET (FP) PO SCH (23:36)
[2018-11-01] MEDS: traZODone HCL 50 MG TABLET (FP) PO SCH (23:36)
[2018-11-02 06:27] LABS: BASO % 0.3 % (0-2.0); EOS % 2.1 % (0-4.5); HEMOGLOBIN 11.8 GM/dL (11.7-16.9); LYMPH % 11.5 % (8-40); MCH 28.3 pg (25.7-33.7); MCHC 30.2 g/dl (32.0-35.9); MEAN CELL VOLUME 93.6 fl (80-96); MEAN PLT VOLUME 9.7 fl (7.5-11.1); NEUT % 78.1 % (42.8-82.8); PLATELET COUNT 81 K/MM3 (134-434); RBC 4.17 M/mm3 (4.00-5.60); RDW 20.4 % (11.9-15.9)
[2018-11-02 06:52] LABS: ALK PHOS 184 U/L (45-117); ANION GAP 14 MMOL/L (8-16); BLOOD UREA NITROGEN 73 mg/dL (7-18); CALCIUM 8.8 mg/dL (8.5-10.1); CHLORIDE 97 mmol/L (98-107); CO2 20 mmol/L (21-32); GLUCOSE,RANDOM 71 mg/dL (74-106); POTASSIUM 4.5 mmol/L (3.5-5.1); SGOT/AST 62 U/L (15-37); SGPT/ALT 85 U/L (13-61); SODIUM 132 mmol/L (136-145); TOT PROT 6.7 g/dl (6.4-8.2)
[2018-11-02 07:09] LABS: CREATININE 8.1 mg/dL (0.55-1.3)
[2018-11-02] MEDS: ATENOLOL 25 MG TABLET (FP) PO SCH ×2 (09:32→11:23)
[2018-11-02] MEDS: HEPARIN NA (PORCINE) 5,000 UNITS/ML 1ML VIAL SQ SCH (09:32)
[2018-11-02] MEDS ORDERED: ASPIRIN 81 MG CHEWABLE TABLETS PO SCH (10:00)
[2018-11-02] MEDS ORDERED: ESCITALOPRAM OXALATE 10 MG TABLET (FP) PO SCH (10:00)
--- NOTE | 2018-11-02 10:03 | CON.NEURO ---
Consult Consult Specialty:: Neurology Referred by:: Dr. Richardson Reason for Consultation:: Altered Mental Status - History of Present Illness Chief Complaint: Altered Mental Status History of Present Illness: The pt is an 78M w/ a history HTN, Atrial Fibrillation (ASA), ESRD on HD, Colon ca s/p resection, Renal Osteodystrophy, PAD, Dementia, RLE wound, L foot dry gangrene who stays at [facility] presents from HD today for evaluation of AMS. Per son, at baseline, pt is interactive, follows commands, and is oriented x3 but will give tangential replies or forget conversational topics. Per his aid, he is usually able to transition to wheelchair with minimal one-person assistance but has required full assistance over this weekends. I spoke to the son at bedside who reports that the patient was recently in [facility] which is when the altered mentation started. He was quite out of it then, speaking nonsensically and apparently hallucinating. The son says that he had requested that he be seen by a neurologist then, but the MD's at [facility] felt that they were able to explain his mentation and didn't consult neuro at that time, so his son was happy to see me. As per his son, he has been slowly improving since [facility] admission and while not back to his baseline yet, he is significantly better. s/p recent LLE angioplasty by Dr. Martinez 11/01/18 13:49 - History Source History Provided By: Family Member, Medical Record Limitations to Obtaining History: Clinical Condition - Past Medical History [employer]: Yes: Alzheimer's, Other (delirium) Cardio/Vascular: Yes: CAD, HTN Renal/: Yes: Renal Failure - Past Surgical History Past Surgical History: Yes: AV Fistula/Graft - Alcohol/Substance Use Hx Alcohol Use: No History of Substance Use: reports: None - Smoking History Smoking history: Never smoked Have you smoked in the past 12 months: No - Social History Usual Living Arrangement: [facility] ADL: Support Services History of Recent Travel: No Home Medications - Allergies Allergies/Adverse Reactions: Allergies Allergy/AdvReac Type Severity Reaction Status Date / Time No Known Allergies Allergy Verified 11/01/18 13:43 - Home Medications Home Medications: Ambulatory Orders Alprazolam [Xanax] 0.5 mg PO BID PRN 08/15/16 Atenolol [Tenormin -] 50 mg PO DAILY 08/15/16 Zolpidem Tartrate [Ambien] 5 mg PO HS 08/15/16 traZODone HCL [Trazodone HCl] 50 mg PO HS 08/15/16 Docusate Sodium [Colace] 2 cap PO HS 06/30/18 Escitalopram Oxalate [Lexapro -] 10 mg PO DAILY 06/30/18 Memantine HCl [Namenda -] 5 mg PO BID 06/30/18 Polyethylene Glycol 3350 [Laxaclear] 1,700 gm PO DAILY 06/30/18 Sennosides [Senna Concentrate] 8.6 mg PO DAILY 06/30/18 Sevelamer Carbonate [Renvela -] 800 mg PO TID 06/30/18 Vit B Comp No.3/Folic/C/Biotin [Nephro-Louie Rx Tablet] 1 each PO DAILY 06/30/18 Acetaminophen [Tylenol .Regular Strength -] 650 mg PO Q6H PRN tablet 08/04/18 Aspirin Coated [Ecotrin -] 81 mg PO DAILY tablet.ec 08/04/18 Aspirin [ASA -] 81 mg PO DAILY #30 tab.chew 08/04/18 Atorvastatin Ca [Lipitor] 40 mg PO HS tablet 08/04/18 Collagenase Clostridium Hist. [Santyl -] 1 applic TP DAILY tube 08/04/18 Cinacalcet HCl [Sensipar -] 60 mg PO DAILY 11/01/18 Clopidogrel Bisulfate [Plavix] 75 mg PO DAILY 11/01/18 Oxycodone HCl/Acetaminophen [Percocet 5-325 mg Tablet] 1 tab PO TID PRN Physical Exam-Neuro Vital Signs: Vital Signs Temperature 95.9 F L 11/01/18 19:44 Pulse Rate 83 11/02/18 09:00 Respiratory Rate 18 11/02/18 09:00 Blood Pressure 90/58 L 11/02/18 09:00 O2 Sat by Pulse Oximetry (%) 96 11/02/18 06:50 Constitutional: Yes: Well Nourished, No Distress, Calm Neck: Yes: Supple Labs: CBC, BMP 11/02/18 05:30 11/02/18 05:30 INR, PTT INR 1.28 (0.83-1.09) H 11/01/18 14:45 - Neuro Exam Level Of Consciousness: Yes: Alert, Oriented to Person, Oriented to Place (says year is 1999, names Hospital and President [place]) Eyes: Yes: SHERRELL Speech: WNL Cranial Nerves II-XII Intact: Yes DTR's: 1+ Left Bicep, 1+ Right Bicep, 1+ Left Tricep, 1+ Right Tricep, 1+ Left Brachioradialis, 1+ Right Brachioradialis Response to light touch: Normal Movement Disorders: Asterixis Motor Strength: 5/5: Left Arm, Right Arm, Left Leg, Right Leg Gait: Deferred Imaging - Results Cat Scan: Report Reviewed, Image Reviewed (interval development of fluid in mastoid air cells. mild ischemic white matter disease. No evidence of stroke) Problem List - Problems (1) Encephalopathy Code(s): G93.40 - ENCEPHALOPATHY, UNSPECIFIED (2) ESRD needing dialysis Code(s): N18.6 - END STAGE RENAL DISEASE; Z99.2 - DEPENDENCE ON RENAL DIALYSIS (3) HTN (hypertension) Code(s): I10 - ESSENTIAL (PRIMARY) HYPERTENSION Qualifiers: Hypertension type: unspecified Qualified Code(s): I10 - Essential (primary ) hypertension (4) Peripheral arterial disease Code(s): I73.9 - PERIPHERAL VASCULAR DISEASE, UNSPECIFIED (5) Sepsis Code(s): A41.9 - SEPSIS, UNSPECIFIED ORGANISM Qualifiers: Sepsis type: sepsis due to unspecified organism Qualified Code(s): A41.9 - Sepsis, unspecified organism (6) Acute upper GI bleed Code(s): K92.2 - GASTROINTESTINAL HEMORRHAGE, UNSPECIFIED (7) Anemia Code(s): D64.9 - ANEMIA, UNSPECIFIED Qualifiers: Anemia type: other cause Other causes of anemia: acute posthemorrhagic Qualified Code(s): D62 - Acute posthemorrhagic anemia (8) 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 He is improving by history and this is the good news. The asterixis is a marker for the metabolic encephalopathy and non-specific. I would suggest evaluation of the finding of "interval development of fluid in mastoid air cells" as I'm unsure as to whether this is significant and whether it needs additional therapy. From a neurologic standpoint, I don't' think any further evaluation or treatment is necessary at this time, only that ongoing addressing of his infectious and metabolic issues should hopefully help turn him around and return him back to or at least close to his baseline. Thank you. Please call if further questions arise.
--- NOTE | 2018-11-02 14:39 | CON.ID ---
Consult Consult Specialty:: inectious diseases Referred by:: Reason for Consultation:: resp failure,hypotension - History of Present Illness Chief Complaint: ams History of Present Illness: 78 year old male from [facility] presented to the ED on 11/01/18 for evaluation of hypotension. Patient was in HD on the day of admission, after an hour of HD, became hypotensive, HD was stopped, EMS was called and brought in to the ED for further evaluation. Patient admitted in Tele. patient continues to have ams and not able to answer questions appropriately patient has been in the [place] since 2 yrs. Has had multiple interventions for PVD by Dr. Lazaro over the past couple of years. Was admitted at [facility] 2 weeks ago for gangrene of the Left 2nd digit. Revascularization of his tibial arterial disease was performed and he was discharged back to [place] with plans for toe amputation when demarcated. 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, Other (delirium) Cardio/Vascular: Yes: CAD, HTN Renal/: Yes: Renal Failure - Past Surgical History Past Surgical History: Yes: AV Fistula/Graft - Alcohol/Substance Use Hx Alcohol Use: No History of Substance Use: reports: None - Smoking History Smoking history: Never smoked Have you smoked in the past 12 months: No - Social History Usual Living Arrangement: Senior Living ADL: Support Services History of Recent Travel: No Home Medications - Allergies Allergies/Adverse Reactions: Allergies Allergy/AdvReac Type Severity Reaction Status Date / Time No Known Allergies Allergy Verified 11/01/18 13:43 - Home Medications Home Medications: Ambulatory Orders Alprazolam [Xanax] 0.5 mg PO BID PRN 08/15/16 Atenolol [Tenormin -] 50 mg PO DAILY 08/15/16 Zolpidem Tartrate [Ambien] 5 mg PO HS 08/15/16 traZODone HCL [Trazodone HCl] 50 mg PO HS 08/15/16 Docusate Sodium [Colace] 2 cap PO HS 06/30/18 Escitalopram Oxalate [Lexapro -] 10 mg PO DAILY 06/30/18 Memantine HCl [Namenda -] 5 mg PO BID 06/30/18 Polyethylene Glycol 3350 [Laxaclear] 1,700 gm PO DAILY 06/30/18 Sennosides [Senna Concentrate] 8.6 mg PO DAILY 06/30/18 Sevelamer Carbonate [Renvela -] 800 mg PO TID 06/30/18 Vit B Comp No.3/Folic/C/Biotin [Nephro-Louie Rx Tablet] 1 each PO DAILY 06/30/18 Acetaminophen [Tylenol .Regular Strength -] 650 mg PO Q6H PRN tablet 08/04/18 Aspirin Coated [Ecotrin -] 81 mg PO DAILY tablet.ec 08/04/18 Aspirin [ASA -] 81 mg PO DAILY #30 tab.chew 08/04/18 Atorvastatin Ca [Lipitor] 40 mg PO HS tablet 08/04/18 Collagenase Clostridium Hist. [Santyl -] 1 applic TP DAILY tube 08/04/18 Cinacalcet HCl [Sensipar -] 60 mg PO DAILY 11/01/18 Clopidogrel Bisulfate [Plavix] 75 mg PO DAILY 11/01/18 Oxycodone HCl/Acetaminophen [Percocet 5-325 mg Tablet] 1 tab PO TID PRN Review of Systems Unable to obtain ROS, reason: unable to obtain Physical Exam Vital Signs: Vital Signs Temperature 95.9 F L 11/01/18 19:44 Pulse Rate 90 11/02/18 13:17 Respiratory Rate 18 11/02/18 13:17 Blood Pressure 96/71 11/02/18 13:17 O2 Sat by Pulse Oximetry (%) 96 11/02/18 06:50 Constitutional: Yes: Well Nourished, Mild Distress Eyes: Yes: Conjunctiva Clear Neck: Yes: Supple Cardiovascular: Yes: Regular Rate and Rhythm Respiratory: Yes: On Nasal O2, Poor Air Entry, SOB Gastrointestinal: Yes: Normal Bowel Sounds, Soft Musculoskeletal: Yes: WNL Extremities: Yes: Other (left arm fistula) Neurological: Yes: Confusion, Lethargy Labs: CBC, BMP 11/02/18 05:30 11/02/18 05:30 Imaging - Results Chest X-ray: Report Reviewed, Image Reviewed Cat Scan: Report Reviewed, Image Reviewed Assessment/Plan Acute on Chronic Hypoxic and Hypercapneic Respiratory Failure Volume Overload Acute on Chronic Diastolic Heart Failure Elevated LFTs suspect congestive hepatopathy r/o Pneumonia r/o UTI ESRD on HD PAD/Gangrene Atrial Fibrillation Thrombocytopenia dry gangrene left foot looking at the patient ,he is in resp issues and also mental status issues also he has high chance of apsitation and pneumonia due to that plan will start patient on empiric abx close monitoring of his o2 sat resp support nutrition rest as per the team
--- NOTE | 2018-11-02 14:44 | EKG ---
Test Reason : Blood Pressure : / mmHG Vent. Rate : 083 BPM Atrial Rate : 127 BPM P-R Int : 000 ms QRS Dur : 144 ms QT Int : 434 ms P-R-T Axes : 000 247 186 degrees QTc Int : 509 ms ATRIAL FIBRILLATION RIGHT SUPERIOR AXIS DEVIATION LEFT BUNDLE BRANCH BLOCK ABNORMAL ECG WHEN COMPARED WITH ECG OF 03-AUG-2018 08:49, NO SIGNIFICANT CHANGE WAS FOUND Confirmed by Tc Petersen ([id number]) on 11/02/2018 2:43:30 PM Referred By: Confirmed By:Tc Petersen
[2018-11-02] MEDS ORDERED: PIPERACILLIN/TAZOB 2.25 GM 2.25 GM in DEXTROSE 5%-WATER - 50 ML IVPB SCH (15:00)
--- NOTE | 2018-11-02 17:57 | PN ---
Progress Note, Physician - Current Medication List Current Medications: Active Medications Alprazolam (Xanax -) 0.5 mg PO Q12H PRN PRN Reason: ANXIETY Aspirin (Asa -) 81 mg PO DAILY [facility] Last Admin: 11/02/18 09:32 Dose: 81 mg Atenolol (Tenormin -) 50 mg PO DAILY [facility] Last Admin: 11/02/18 11:23 Dose: Not Given Atorvastatin Calcium (Lipitor -) 40 mg PO [facility] Last Admin: 11/01/18 23:36 Dose: 40 mg Escitalopram Oxalate (Lexapro -) 10 mg PO DAILY [facility] Last Admin: 11/02/18 09:32 Dose: 10 mg Heparin Sodium (Porcine) (Heparin -) 5,000 unit SQ BID [facility] Last Admin: 11/02/18 09:32 Dose: 5,000 unit Piperacillin Sod/Tazobactam (Sod 2.25 gm/ Dextrose) 50 mls @ 100 mls/hr IVPB Q8H-IV [facility]; Protocol Last Admin: 11/02/18 15:34 Dose: 100 mls/hr Trazodone HCl (Desyrel -) 50 mg PO [facility] Last Admin: 11/01/18 23:36 Dose: 50 mg - Objective Vital Signs: Vital Signs Temperature 97.4 F L 11/02/18 15:00 Pulse Rate 73 11/02/18 15:00 Respiratory Rate 17 11/02/18 15:00 Blood Pressure 118/107 H 11/02/18 15:00 O2 Sat by Pulse Oximetry (%) 96 11/02/18 06:50 Constitutional: Yes: No Distress HENT: Yes: Atraumatic Neck: Yes: Supple Cardiovascular: Yes: Regular Rate and Rhythm Respiratory: Yes: CTA Bilaterally Gastrointestinal: Yes: Normal Bowel Sounds Extremities: Yes: Other (fingers are dusky L toe gangrene) Neurological: Yes: Alert, Oriented Labs: CBC, BMP 11/02/18 05:30 11/02/18 05:30 INR, PTT INR 1.28 (0.83-1.09) H 11/01/18 14:45 Problem List - Problems (1) ESRD needing dialysis Assessment/Plan: on hd renal on board Code(s): N18.6 - END STAGE RENAL DISEASE; Z99.2 - DEPENDENCE ON RENAL DIALYSIS (2) HTN (hypertension) Assessment/Plan: monitor continue meds Code(s): I10 - ESSENTIAL (PRIMARY) HYPERTENSION Qualifiers: Hypertension type: unspecified Qualified Code(s): I10 - Essential (primary ) hypertension (3) Peripheral arterial disease Assessment/Plan: will call vascular monitor Code(s): I73.9 - PERIPHERAL VASCULAR DISEASE, UNSPECIFIED (4) Sepsis Assessment/Plan: abx per id cxs negative to date Code(s): A41.9 - SEPSIS, UNSPECIFIED ORGANISM Qualifiers: Sepsis type: sepsis due to unspecified organism Qualified Code(s): A41.9 - Sepsis, unspecified organism (5) Atrial fibrillation with RVR Code(s): I48.91 - UNSPECIFIED ATRIAL FIBRILLATION Assessment/Plan cc time 35 min
--- NOTE | 2018-11-02 19:48 | CONSULT ---
Consult - text type - Consultation Consultation Note: Mr. Steiner has been under my care for many years for severe PAD and renal failure dialysis access. He was seen last week at [facility] for gangrene of the lft 2nd toe. Revascularization of his tibial arterial disease was performed and he was discharged with palns for toe amputation when demarcated. 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 Currently admitted for hypoxemia and altered mental status. His feet are warm, toes and fingers are cyanotic. Wound care orders written. I will follow.
--- NOTE | 2018-11-02 19:50 | CONSULT ---
Consultation: REQUESTING PROVIDER: CONSULT REQUEST: We have been asked to medically evaluate this patient for acute hypoxic respiratory distress. HISTORY OF PRESENT ILLNESS: Poor historian. History obtained from patient's daughter Patient is an 78 year old male from [facility] presented to the ED on 11/01/18 for evaluation of hypotension. Patient was in HD on the day of admission, after an hour of HD, became hypotensive, HD was stopped, EMS was called and brought in to the ED for further evaluation. Patient was admitted in Tele. Today, patient was found to be hypoxic to 80's and cyanosis of the finger tips. ICU was called for evaluation. Stat ABG done, placed the patient on Bipap with improvement in oxygen saturation to 96 %. Then transferred to ICU for further management. Daughter mentions that patient has been in the [place] since 2 yrs. Has had multiple interventions for PVD by Dr. Lazaro (knows pt very well) over the past couple of years. 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 Revascularization of his tibial arterial disease was performed and he was discharged back to [place] with plans for toe amputation when demarcated. 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 TRAVEL- Not recently REVIEW OF SYSTEMS: CONSTITUTIONAL: Absent: fever, chills, diaphoresis, generalized weakness, malaise, loss of appetite, weight change HEENT: Absent: rhinorrhea, nasal congestion, throat pain, throat swelling, difficulty swallowing, mouth swelling, ear pain, eye pain, visual changes CARDIOVASCULAR: Absent: chest pain, syncope, palpitations, irregular heart rate, lightheadedness , peripheral edema RESPIRATORY: Present: shortness of breath, Absent: cough,dyspnea with exertion, orthopnea, wheezing, stridor, hemoptysis GASTROINTESTINAL: Absent: abdominal pain, abdominal distension, nausea, vomiting, diarrhea, constipation, melena, hematochezia GENITOURINARY: Absent: dysuria, frequency, urgency, hesitancy, hematuria, flank pain, genital pain MUSCULOSKELETAL: Absent: myalgia, arthralgia, joint swelling, back pain, neck pain SKIN: Absent: rash, itching, pallor HEMATOLOGIC/IMMUNOLOGIC: Absent: easy bleeding, easy bruising, lymphadenopathy, frequent infections ENDOCRINE: Absent: unexplained weight gain, unexplained weight loss, heat intolerance, cold intolerance NEUROLOGIC: Absent: headache, focal weakness or paresthesias, dizziness, unsteady gait, seizure, mental status changes, bladder or bowel incontinence PSYCHIATRIC: Absent: anxiety, depression, suicidal or homicidal ideation, hallucinations. PHYSICAL EXAMINATION Vital Signs - 24 hr 11/01/18 11/01/18 11/01/18 21:02 21:42 22:17 Temperature Pulse Rate Pulse Rate [ 80 80 Apical] Respiratory 24 H Rate Blood Pressure Blood Pressure 85/49 L 96/67 104/74 [Left Arm] O2 Sat by Pulse 97 Oximetry (%) 11/02/18 11/02/18 11/02/18 06:50 09:00 13:17 Temperature Pulse Rate 83 90 Pulse Rate [ 74 Apical] Respiratory 18 18 18 Rate Blood Pressure 90/58 L 96/71 Blood Pressure 78/57 L [Left Arm] O2 Sat by Pulse 96 Oximetry (%) 11/02/18 15:00 Temperature 97.4 F L Pulse Rate 73 Pulse Rate [ Apical] Respiratory 17 Rate Blood Pressure 118/107 H Blood Pressure [Left Arm] O2 Sat by Pulse Oximetry (%) GENERAL: Elderly male, lying in bed, Awake, alert, in respiratory distress, cyanosis of the finger tips ++. EYES: EOM intact, no pallor or icterus. EARS, NOSE, THROAT: Dry mucous membranes. NECK: Supple, no JVD. LUNGS: B/L basilar crackles, occasional wheeze. HEART: Regular rate and rhythm, normal S1 and S2 with systolic murmur. ABDOMEN: Soft, nontender, no organomegaly, BS +. UPPER EXTREMITIES: Left upper arm fistula, No peripheral edema. LOWER EXTREMITIES: Right calf dressing and left second digit gangrene. NEUROLOGICAL: No facial droop, confused at baseline. PSYCHIATRIC: Cooperative. Good eye contact. SKIN: No lesions or rashes. Laboratory Results - last 24 hr 11/01/18 11/01/18 11/01/18 14:45 19:00 19:40 WBC RBC Hgb Hct MCV MCH MCHC RDW Plt Count MPV Absolute Neuts (auto) Neutrophils % Lymphocytes % Monocytes % Eosinophils % Basophils % Nucleated RBC % Polychromasia 1+ Anisocytosis 1+ Microcytosis 1+ Target Cells 1+ Ovalocytes 1+ Sodium Potassium Chloride Carbon Dioxide Anion Gap BUN Creatinine Creat Clearance w eGFR Random Glucose Calcium Total Bilirubin AST ALT Alkaline Phosphatase Troponin I 1.01 H* Total Protein Albumin Urine Color Yellow Urine Appearance Clear Urine pH 5.0 Ur Specific [place] 1.020 Urine Protein 3+ H Urine Glucose (UA) Negative Urine Ketones Trace Urine Blood 3+ H Urine Nitrite Negative Urine Bilirubin Negative Urine Urobilinogen 0.2 Ur Leukocyte Esterase 2+ H Urine WBC (Auto) 20-30 Urine RBC (Auto) 10-15 Urine Bacteria (Auto) Many 11/02/18 11/02/18 05:30 05:30 WBC 8.0 RBC 4.17 Hgb 11.8 Hct 39.0 MCV 93.6 MCH 28.3 MCHC 30.2 L RDW 20.4 H Plt Count 81 L MPV 9.7 Absolute Neuts (auto) 6.2 Neutrophils % 78.1 Lymphocytes % 11.5 Monocytes % 8.0 Eosinophils % 2.1 Basophils % 0.3 Nucleated RBC % 0 Polychromasia Anisocytosis Microcytosis Target Cells Ovalocytes Sodium 132 L Potassium 4.5 Chloride 97 L Carbon Dioxide 20 L Anion Gap 14 BUN 73 H Creatinine 8.1 H* Creat Clearance w eGFR 6.43 Random Glucose 71 L Calcium 8.8 Total Bilirubin 1.0 AST 62 H ALT 85 H Alkaline Phosphatase 184 H Troponin I Total Protein 6.7 Albumin 3.0 L Urine Color Urine Appearance Urine pH Ur Specific [place] Urine Protein Urine Glucose (UA) Urine Ketones Urine Blood Urine Nitrite Urine Bilirubin Urine Urobilinogen Ur Leukocyte Esterase Urine WBC (Auto) Urine RBC (Auto) Urine Bacteria (Auto) Active Medications Generic Name Dose Route Start Last Admin Trade Name Freq PRN Reason Stop Dose Admin Alprazolam 0.5 mg 11/01/18 20:21 Xanax - PO Q12H PRN ANXIETY Aspirin 81 mg 11/02/18 10:00 11/02/18 09:32 Asa - PO 81 mg DAILY [facility]US Administration Atenolol 50 mg 11/02/18 10:00 11/02/18 11:23 Tenormin - PO Not Given DAILY COUNTS INCLUDE 234 BEDS AT THE [facility] Atorvastatin Calcium 40 mg 11/01/18 22:00 11/01/18 23:36 Lipitor - PO 40 mg HS [facility] Administration Chlorhexidine Gluconate 1 applic 11/02/18 22:00 Hibiclens For Decolonization - TP HS [facility]US Escitalopram Oxalate 10 mg 11/02/18 10:00 11/02/18 09:32 Lexapro - PO 10 mg DAILY [facility] Administration Heparin Sodium (Porcine) 5,000 unit 11/01/18 22:00 11/02/18 09:32 Heparin - SQ 5,000 unit BID [facility] Administration Piperacillin Sod/Tazobactam 50 mls @ 100 mls/hr 11/02/18 15:00 11/02/18 15:34 Sod 2.25 gm/ Dextrose IVPB 100 mls/hr Q8H-IV [facility] Administration Protocol Mupirocin 1 applic 11/02/18 22:00 Bactroban Ointment (For Decolonization) - NS 11/07/18 21:59 BID [facility]US Trazodone HCl 50 mg 11/01/18 22:00 11/01/18 23:36 Desyrel - PO 50 mg HS [facility] Administration ASSESSMENT/PLAN: Patient is an 78 year old male with past medical history of PAD s/p revascularization of tibial arterial disease, HTN, colon CA s/p resection (25 yrs ago), afib (on coumadin) hx of GIB, ESRD (M, W, F), renal osteodystrophy, dementia from [facility] presented to the ED on 11/01/18 for evaluation of altered mental status admitted in ICU for Acute respiratory distress with cyanosis. # Acute hypoxic respiratory failure c/o shortness of breath, hypoxic to 80's with cyanosis of finger tips (not at his baseline). Pt doesn't use oxygen at home, no h/o COPD. Patient was admitted in Tele, transferred to ICU for hypoxia. Patient was placed on bipap with improvement in oxygen saturation. Using Ear probe, cyanosis of finger tips Stat ABG was done which showed pH 7.29, Pco2-45, Hco3 - 20 Stat CXR done which showed b/l pleural changes Patient already on Zosyn Flu sent which was negative Continue bipap as patient's oxygen saturation drops when changed into venti. # B/L lower extremity wounds/ PAD Revascularization of tibial arteries done two weeks ago at [facility] by Dr. Martinez Plan is toe amputation for gangrene of the left second digit, as per Dr. Martinez Continue Aspirin. Continue IV Zosyn 2.275 Q8H # Altered Mental status Head CT negative for any acute pathology Neurology on board # Hypertension: currently controlled continue atenolol 50 mg daily # Atrial fibrillation-rate controlled Continue Aspirin, off plavix due to GIB last year # Depression/Anxiety Continue Lexapro 10 mg/Trazodone and xanax prn # HLD Continue Lipitor 40mg HS. # ESRD M, W, F. Thursday he became hypotensive while on HD so brought in here. Will need HD tomorrow. Dr. Machado consulted. # FEN Not on IVF; Avoid fluid Electrolytes to be repeated in AM Na controlled /renal diet # Prophylaxis For DVT: On Hep 5000 SQ BID For GI: Not indicated # Code Status: Full Code. Discussed with patient's daughter. Illness, Investigation and Plan of care explained to the patient's daughter. She verbalized understanding. Case discussed with Dr. Richardson. Dispo: We will continue to follow the patient. Thank you for this consultative opportunity. Visit type - Emergency Visit Emergency Visit: Yes ED Registration Date: 11/01/18 Care time: The patient presented to the Emergency Department on the above date and was hospitalized for further evaluation of their emergent condition. - New Patient This patient is new to me today: Yes Date on this admission: 11/02/18 - Critical Care Critical Care patient: Yes Total Critical Care Time (in minutes): 35 Critical Care Statement: The care of this patient involved high complexity decision making to prevent further life threatening deterioration of the patient 's condition and/or to evaluate & treat vital organ system(s) failure or risk of failure.
[2018-11-02 19:57] LABS: ARTERIAL BLD GAS O2 SATURATION 99.5 % (95-98); ARTERIAL BLOOD GAS BASE EXCESS -5.3 meq/l (-2-2); ARTERIAL BLOOD GAS PO2 312 mmHg (80-105); ARTERIAL BLOOD GAS pH 7.29 (7.35-7.45)
[2018-11-02 19:58] LABS: ALLENS TEST POSITIVE
[2018-11-02] MEDS: CHLORHEXIDINE GLUCONATE 4% CLEANSER FOR DECOLONIZATION TP SCH (23:00)
[2018-11-02] MEDS: MUPIROCIN 2% TOPICAL OINTMENT FOR DECOLONIZATION NS SCH (23:00)
[2018-11-03] MEDS ORDERED: DEXTROSE 5%-WATER - 50 ML IVPB ONE ×3 (01:17→17:28)
[2018-11-03] MEDS ORDERED: PIPERACILLIN/TAZOBACTAM 2.25 GM VIAL IVPB ONE ×3 (01:17→17:28)
[2018-11-03] MEDS: PIPERACILLIN/TAZOB 2.25 GM 2.25 GM in DEXTROSE 5%-WATER - 50 ML IVPB SCH ×3 (01:23→17:35)
[2018-11-03 06:15] LABS: ARTERIAL BLD GAS O2 SATURATION 63.4 % (95-98); ARTERIAL BLOOD GAS BASE EXCESS -4.5 meq/l (-2-2); ARTERIAL BLOOD GAS PO2 41.2 mmHg (80-105); ARTERIAL BLOOD GAS pH 7.24 (7.35-7.45)
[2018-11-03 06:20] LABS: ALLENS TEST POSITIVE
[2018-11-03 06:30] LABS: HEMOGLOBIN 11.1 GM/dL (11.7-16.9); MCH 28.8 pg (25.7-33.7); MCHC 30.9 g/dl (32.0-35.9); MEAN CELL VOLUME 93.1 fl (80-96); MEAN PLT VOLUME 9.3 fl (7.5-11.1); PLATELET COUNT 79 K/MM3 (134-434); RBC 3.87 M/mm3 (4.00-5.60); RDW 21.1 % (11.9-15.9); WHITE BLOOD COUNT 5.8 K/mm3 (4.0-10.0)
[2018-11-03 06:50] LABS: INR 1.23 (0.83-1.09); PROTHROMBIN TIME (PATIENT) 14.5 SEC (9.7-13.0)
[2018-11-03 07:09] LABS: ALBUMIN 2.6 g/dl (3.4-5.0); ALK PHOS 156 U/L (45-117); ANION GAP 13 MMOL/L (8-16); BILIRUBIN,TOTAL 0.7 mg/dL (0.2-1); BLOOD UREA NITROGEN 82 mg/dL (7-18); CALCIUM 9.2 mg/dL (8.5-10.1); CHLORIDE 96 mmol/L (98-107); CO2 24 mmol/L (21-32); GLUCOSE,RANDOM 66 mg/dL (74-106); MAGNESIUM 3.2 mg/dL (1.8-2.4); PHOSPHOROUS 7.6 mg/dL (2.5-4.9); POTASSIUM 4.8 mmol/L (3.5-5.1); SGOT/AST 46 U/L (15-37); SGPT/ALT 70 U/L (13-61); SODIUM 133 mmol/L (136-145); TOT PROT 6.1 g/dl (6.4-8.2)
--- NOTE | 2018-11-03 07:30 | PN ---
Physical Exam: SUBJECTIVE: Patient seen and examined at bedside. Pt found to be desatting this morning while on bipap, settings were changed; increased FiO2 to 75% and rate to 16. Pt now satting 100%. OBJECTIVE: Vital Signs Period Temp Pulse Resp BP Sys/[place] Pulse Ox Last 24 Hr 97.4 F-97.6 F 71-90 17-18 78-135/24-107 96-96 GENERAL: Elderly male, lying in bed, Awake, alert, in respiratory distress, cyanosis of the finger tips ++. EYES: EOM intact, no pallor or icterus. EARS, NOSE, THROAT: Dry mucous membranes. NECK: Supple, no JVD. LUNGS: B/L basilar crackles, occasional wheeze. HEART: Regular rate and rhythm, normal S1 and S2 with systolic murmur. ABDOMEN: Soft, nontender, no organomegaly, BS +. UPPER EXTREMITIES: R upper arm fistula, no peripheral edema. LOWER EXTREMITIES: Right calf dressing and left second digit gangrene. NEUROLOGICAL: No facial droop, confused at baseline. PSYCHIATRIC: Cooperative. Good eye contact. SKIN: No lesions or rashes. CBC, BMP 11/03/18 05:30 11/03/18 05:30 Active Medications Alprazolam (Xanax -) 0.5 mg PO Q12H PRN PRN Reason: ANXIETY Aspirin (Asa -) 81 mg PO DAILY [facility] Atenolol (Tenormin -) 50 mg PO DAILY [facility] Atorvastatin Calcium (Lipitor -) 40 mg PO HS [facility] Chlorhexidine Gluconate (Hibiclens For Decolonization -) 1 applic TP HS [facility] Last Admin: 11/02/18 23:00 Dose: 1 applic Escitalopram Oxalate (Lexapro -) 10 mg PO DAILY [facility] Heparin Sodium (Porcine) (Heparin -) 5,000 unit SQ BID [facility] Piperacillin Sod/Tazobactam (Sod 2.25 gm/ Dextrose) 50 mls @ 100 mls/hr IVPB Q8H-IV [facility]; Protocol Last Admin: 11/03/18 01:23 Dose: 100 mls/hr Mupirocin (Bactroban Ointment (For Decolonization) -) 1 applic NS BID [facility] Stop: 11/07/18 21:59 Last Admin: 11/02/18 23:00 Dose: 1 applic Trazodone HCl (Desyrel -) 50 mg PO HS [facility] CONSULT: Nephro- Dr. Carter Damon- Dr. Martinez Neuro- IMAGING: * Head CT: No evid of IC pathology. IC structures demonstrate no definite interval change in comparison to prior CT exam of 07/29/18. Interval development of a small amount of fluid is noted within the L mastoid air cells. ASSESSMENT/PLAN: 78M with past medical history of PAD s/p revascularization of tibial arterial disease, HTN, colon CA s/p resection (25 yrs ago), afib (on coumadin) hx of GIB , ESRD (M, W, F), renal osteodystrophy, dementia from [facility] presented to the ED on 11/01/18 for evaluation of altered mental status admitted in ICU for Acute respiratory distress with cyanosis. Neuro # Altered Mental status -Head CT negative for any acute pathology -Per neuro, mental status changes are likely 2/2 metabolic and/or infectious causes. Recommend to investigate findings on head CT of interval development of small amount of fluid is noted within the L mastoid air cells # Depression/Anxiety -Continue Lexapro 10 mg/Trazodone and Xanax prn Pulm # Acute hypoxic respiratory failure -c/o shortness of breath, hypoxic to 80's with cyanosis of finger tips (not at his baseline). Pt doesn't use oxygen at home, no h/o COPD -Patient was placed on bipap with improvement in oxygen saturation. Use Ear probe -Repeat ABG tomorrow -Patient already on Zosyn -Flu neg -Continue bipap as patient's oxygen saturation drops when changed into venti. Cardio #Hypertension: currently controlled -continue Atenolol 50 mg daily #Atrial fibrillation-rate controlled -Continue Aspirin, off plavix due to GIB last year #HLD -Continue Lipitor 40mg HS Vascular #B/L lower extremity wounds/PVD/LE gangrene -Revascularization of tibial arteries done two weeks ago at [facility] by Dr. Martinez -Plan is toe amputation for gangrene of the left second digit, as per Dr. Martinez -Continue Aspirin. -Per ID, Continue IV Zosyn 2.275 Q8H -await [facility] recs Renal # ESRD -M, W, F. Thursday he became hypotensive while on HD so brought in here. -HD w/ ultrafiltration; may require ultrafiltration tomorrow per nephro -Dr. Machado consulted. FEN -Not on IVF; Avoid fluids -Electrolytes to be repeated in AM -NPO for now until respiratory status improves; currently on bipap; Per renal, recommend Renal diet, 1.2L fluid restriction Prophylaxis For DVT: On Hep 5000 SQ BID For GI: Not indicated Dispo -full code Visit type - Emergency Visit Emergency Visit: Yes ED Registration Date: 11/01/18 Care time: The patient presented to the Emergency Department on the above date and was hospitalized for further evaluation of their emergent condition. - New Patient This patient is new to me today: Yes Date on this admission: 11/03/18 - Critical Care Critical Care patient: Yes Total Critical Care Time (in minutes): 35 Critical Care Statement: The care of this patient involved high complexity decision making to prevent further life threatening deterioration of the patient 's condition and/or to evaluate & treat vital organ system(s) failure or risk of failure.
[2018-11-03 07:31] LABS: CREATININE 9.1 mg/dL (0.55-1.3)
[2018-11-03] MEDS: HEPARIN NA (PORCINE) 5,000 UNITS/ML 1ML VIAL SQ SCH ×3 (10:32→22:11)
--- NOTE | 2018-11-03 11:04 | CONSULT ---
Consult - text type - Consultation Consultation Note: Renal Consult for ESRD on HD This is a 78 year old gentleman with hx of ESRD on HD, Colon Ca s/p resection, Afib, PVD, Dementia with recent hospital admission at [facility] for foot gangrene and PVD now presented from HD unit with AMS and hypotension. Pt currently in the ICU, on BIPAP for respiratory support. Denies any pain, sob, cp , abd pain, N/V/D. Last dialysis was Thursday but Tx time was only 1 hour. PMhx: as above Allergies: NKDA Family Hx: NC Social Hx: No T/A/D ROS: as per HPI, all other pertinent ros negative Home Medications Medication Instructions Recorded Alprazolam [Xanax] 0.5 mg PO BID PRN 08/15/16 Atenolol [Tenormin -] 50 mg PO DAILY 08/15/16 Zolpidem Tartrate [Ambien] 5 mg PO HS 08/15/16 traZODone HCL [Trazodone HCl] 50 mg PO HS 08/15/16 Docusate Sodium [Colace] 2 cap PO HS 06/30/18 Escitalopram Oxalate [Lexapro -] 10 mg PO DAILY 06/30/18 Memantine HCl [Namenda -] 5 mg PO BID 06/30/18 Polyethylene Glycol 3350 1,700 gm PO DAILY 06/30/18 [Laxaclear] Sennosides [Senna Concentrate] 8.6 mg PO DAILY 06/30/18 Sevelamer Carbonate [Renvela -] 800 mg PO TID 06/30/18 Vit B Comp No.3/Folic/C/Biotin 1 each PO DAILY 06/30/18 [Nephro-Louie Rx Tablet] Acetaminophen [Tylenol .Regular 650 mg PO Q6H PRN tablet 08/04/18 Strength -] Aspirin Coated [Ecotrin -] 81 mg PO DAILY tablet.ec 08/04/18 Aspirin [ASA -] 81 mg PO DAILY #30 tab.chew 08/04/18 Atorvastatin Ca [Lipitor] 40 mg PO HS tablet 08/04/18 Collagenase Clostridium Hist. 1 applic TP DAILY tube 08/04/18 [Santyl -] Cinacalcet HCl [Sensipar -] 60 mg PO DAILY 11/01/18 Clopidogrel Bisulfate [Plavix] 75 mg PO DAILY 11/01/18 Oxycodone HCl/Acetaminophen 1 tab PO TID PRN 11/01/18 [Percocet 5-325 mg Tablet] Vital Signs Temperature 97.6 F 11/03/18 06:05 Pulse Rate 72 11/03/18 08:00 Respiratory Rate 16 11/03/18 08:00 Blood Pressure 93/45 L 11/03/18 08:00 O2 Sat by Pulse Oximetry (%) 96 11/03/18 08:54 Intake & Output 10/31/18 11/01/18 11/02/18 11/03/18 23:59 23:59 23:59 23:59 Intake Total 50 Balance 50 Weight 82 kg 81.987 kg 84.878 kg Awake on BIPAP neck supple, no JVD irregular, no M/R Dec BS, no overt rales + abd distension, no tenderness No LE edema, + UE and LE cyanosis right arm AVF CBC, BMP 11/03/18 05:30 11/03/18 05:30 Laboratory Tests 11/03/18 05:30 Calcium 9.2 Phosphorus 7.6 H Magnesium 3.2 H Albumin 2.6 L Current Medications Albumin Human (Albumin Human 25%) 12.5 gm IVPB Q30M [facility]END[facility] TO [facility] Alprazolam (Xanax -) 0.5 mg PO Q12H PRN PRN Reason: ANXIETY Aspirin (Asa -) 81 mg PO DAILY [facility] Atenolol (Tenormin -) 50 mg PO DAILY [facility] Atorvastatin Calcium (Lipitor -) 40 mg PO HS [facility] Chlorhexidine Gluconate (Hibiclens For Decolonization -) 1 applic TP HS [facility] Last Admin: 11/02/18 23:00 Dose: 1 applic Escitalopram Oxalate (Lexapro -) 10 mg PO DAILY [facility] Heparin Sodium (Porcine) (Heparin -) 5,000 unit SQ BID [facility] Last Admin: 11/03/18 10:32 Dose: 5,000 unit Piperacillin Sod/Tazobactam (Sod 2.25 gm/ Dextrose) 50 mls @ 100 mls/hr IVPB Q8H-IV [facility]; Protocol Last Admin: 11/03/18 10:33 Dose: 100 mls/hr Sodium Chloride (Normal Saline -) 250 mls @ 3,000 mls/hr IV PRN PRN PRN Reason: Hypotension during Dialysis Stop: 11/04/18 10:29 Mupirocin (Bactroban Ointment (For Decolonization) -) 1 applic NS BID [facility] Stop: 11/07/18 21:59 Last Admin: 11/02/18 23:00 Dose: 1 applic Trazodone HCl (Desyrel -) 50 mg PO HS [facility] 78 year old gentleman with hx of ESRD on HD, Colon Ca s/p resection, Afib, PVD, Dementia with recent hospital admission at [facility] for foot gangrene and PVD now presented from HD unit with AMS and hypotension. #ESRD on HD #Fluid overload with respiratory failure on BIPAP #CHF/Diastolic HF #PVD/LE gangrene #Thrombocytopenia #Anemia #Hyponatremia For HD today as inpatient with aggressive UF as tolerated will use Albumin and low temp with HD to maintain BP continue BIPAP support as needed may require additional UF tomorrow continue Abx as per ID Vascular follow up No acute need for blood transfusion or DARON Renal Diet, 1.2L fluid restriction Thank you Armen Machado DO
[2018-11-03] MEDS ORDERED: SODIUM CHLORIDE 250 ML IV PRN (11:42)
--- NOTE | 2018-11-03 11:58 | PN ---
Teaching Attending Note Name of Resident: Jillian Tao ATTENDING PHYSICIAN STATEMENT I saw and evaluated the patient. I reviewed the resident's note and discussed the case with the resident. I agree with the resident's findings and plan as documented. SUBJECTIVE: Pt seen and examined in the ICU. Remains on BiPAP. Somnolent but arousable. Latest ABG still with component of respiratory acidosis. Now normothermic. OBJECTIVE: Vital Signs Period Temp Pulse Resp BP Sys/[place]ina Pulse Ox Last 24 Hr 97.4 F-97.6 F 71-90 16-18 78-135/24-107 96-100 Intake & Output 10/31/18 11/01/18 11/02/18 11/03/18 23:59 23:59 23:59 23:59 Intake Total 50 Balance 50 Weight 82 kg 81.987 kg 84.878 kg Gen: somnolent but arousable Neck: +JVD Heart: RRR, +systolic murmur Lung: decreased breath sounds at the bases Abd: soft, +abdominal wall edema Ext: no edema, cyanotic fingers CBC, BMP 11/03/18 05:30 11/03/18 05:30 ABG Results ABG pH 7.24 (7.35-7.45) L 11/03/18 06:00 ABG pCO2 at Pt Temp 56.0 mmHg (35-45) H 11/03/18 06:00 ABG pO2 at Pt Temp 41.2 mmHg (80-105) L 11/03/18 06:00 ABG HCO3 22.9 mmol/L (22-27) 11/03/18 06:00 ABG O2 Sat (Measured) 63.4 % (95-98) L 11/03/18 06:00 ABG O2 Content 9.6 % vol (15-22) L* 11/03/18 06:00 ABG Base Excess -4.5 meq/l (-2-2) L 11/03/18 06:00 Hepatic Panel Total Bilirubin 0.7 mg/dL (0.2-1) 11/03/18 05:30 AST 46 U/L (15-37) H 11/03/18 05:30 ALT 70 U/L (13-61) H 11/03/18 05:30 Alkaline Phosphatase 156 U/L (45-117) H 11/03/18 05:30 Albumin 2.6 g/dl (3.4-5.0) L 11/03/18 05:30 Active Medications Albumin Human (Albumin Human 25%) 12.5 gm IVPB Q30M [facility] Stop: 11/03/18 13:16 Alprazolam (Xanax -) 0.5 mg PO Q12H PRN PRN Reason: ANXIETY Aspirin (Asa -) 81 mg PO DAILY [facility] Atenolol (Tenormin -) 50 mg PO DAILY [facility] Atorvastatin Calcium (Lipitor -) 40 mg PO HS [facility] Chlorhexidine Gluconate (Hibiclens For Decolonization -) 1 applic TP HS [facility] Last Admin: 11/02/18 23:00 Dose: 1 applic Escitalopram Oxalate (Lexapro -) 10 mg PO DAILY [facility] Heparin Sodium (Porcine) (Heparin -) 5,000 unit SQ BID [facility] Last Admin: 11/03/18 10:32 Dose: 5,000 unit Piperacillin Sod/Tazobactam (Sod 2.25 gm/ Dextrose) 50 mls @ 100 mls/hr IVPB Q8H-IV [facility]; Protocol Last Admin: 11/03/18 10:33 Dose: 100 mls/hr Sodium Chloride (Normal Saline -) 250 mls @ 3,000 mls/hr IV PRN PRN PRN Reason: Hypotension during Dialysis Stop: 11/04/18 11:41 Mupirocin (Bactroban Ointment (For Decolonization) -) 1 applic NS BID [facility] Stop: 11/07/18 21:59 Last Admin: 11/02/18 23:00 Dose: 1 applic Sevelamer Carbonate (Renvela -) 800 mg PO TIDCM [facility] Trazodone HCl (Desyrel -) 50 mg PO HS [facility] ASSESSMENT AND PLAN: Acute on Chronic Hypoxic and Hypercapneic Respiratory Failure Volume Overload Acute on Chronic Diastolic Heart Failure Elevated LFTs suspect congestive hepatopathy r/o Pneumonia r/o UTI ESRD on HD PAD/Gangrene Atrial Fibrillation Thrombocytopenia - HD per renal with ultrafiltration - continue empiric antibiotics - f/u cultures - BiPAP to assist in work of breathing - O2 to keep Spo2 >90% - trend LFTs - check lactate - aspiration precautions - DVT prophylaxis - continue ICU monitoring critical care time spent in reviewing chart, evaluating patient and formulating plan 35 min
--- NOTE | 2018-11-03 12:10 | PN ---
Progress Note, Physician History of Present Illness: patient looks much better more awake and alert on bipap breathing better - Current Medication List Current Medications: Active Medications Albumin Human (Albumin Human 25%) 12.5 gm IVPB Q30M [facility] Stop: 11/03/18 13:16 Alprazolam (Xanax -) 0.5 mg PO Q12H PRN PRN Reason: ANXIETY Aspirin (Asa -) 81 mg PO DAILY [facility] Atenolol (Tenormin -) 50 mg PO DAILY [facility] Atorvastatin Calcium (Lipitor -) 40 mg PO HS [facility] Chlorhexidine Gluconate (Hibiclens For Decolonization -) 1 applic TP HS [facility] Last Admin: 11/02/18 23:00 Dose: 1 applic Escitalopram Oxalate (Lexapro -) 10 mg PO DAILY [facility] Heparin Sodium (Porcine) (Heparin -) 5,000 unit SQ BID [facility] Last Admin: 11/03/18 10:32 Dose: 5,000 unit Piperacillin Sod/Tazobactam (Sod 2.25 gm/ Dextrose) 50 mls @ 100 mls/hr IVPB Q8H-IV [facility]; Protocol Last Admin: 11/03/18 10:33 Dose: 100 mls/hr Sodium Chloride (Normal Saline -) 250 mls @ 3,000 mls/hr IV PRN PRN PRN Reason: Hypotension during Dialysis Stop: 11/04/18 11:41 Mupirocin (Bactroban Ointment (For Decolonization) -) 1 applic NS BID [facility] Stop: 11/07/18 21:59 Last Admin: 11/02/18 23:00 Dose: 1 applic Sevelamer Carbonate (Renvela -) 800 mg PO TIDCM [facility] Trazodone HCl (Desyrel -) 50 mg PO HS [facility] - Objective Vital Signs: Vital Signs Temperature 97.5 F L 11/03/18 10:00 Pulse Rate 75 11/03/18 10:00 Respiratory Rate 16 11/03/18 10:00 Blood Pressure 98/51 L 11/03/18 10:00 O2 Sat by Pulse Oximetry (%) 99 11/03/18 11:16 Constitutional: Yes: No Distress, Calm Cardiovascular: Yes: S1, S2 Respiratory: Yes: On BiPap, Poor Air Entry Gastrointestinal: Yes: Normal Bowel Sounds, Soft Musculoskeletal: Yes: WNL Extremities: Yes: Other Integumentary: Yes: Other Wound/Incision: Yes: Dressing Dry and Intact, Dressing Removed, Other (wounds noted) Neurological: Yes: Alert, Oriented Labs: CBC, BMP 11/03/18 05:30 11/03/18 05:30 INR, PTT INR 1.23 (0.83-1.09) H 11/03/18 05:30 Assessment/Plan Acute on Chronic Hypoxic and Hypercapneic Respiratory Failure Volume Overload Acute on Chronic Diastolic Heart Failure Elevated LFTs suspect congestive hepatopathy r/o Pneumonia r/o UTI ESRD on HD PAD/Gangrene Atrial Fibrillation Thrombocytopenia dry gangrene left foot plan aspiration precautions resp support continue empiric abx wound care rest as per icu monitor mental status cc 40 min
[2018-11-03] MEDS: ASPIRIN 81 MG CHEWABLE TABLETS PO SCH (12:12)
[2018-11-03] MEDS: ESCITALOPRAM OXALATE 10 MG TABLET (FP) PO SCH (12:13)
[2018-11-03] MEDS: ATENOLOL 50 MG TABLET (FP) PO SCH (12:13)
[2018-11-03] MEDS: SEVELAMER CARBONATE 800 MG TAB (FP) PO SCH ×2 (12:15→17:35)
[2018-11-03] MEDS: traZODone HCL 50 MG TABLET (FP) PO SCH ×2 (12:16→22:11)
[2018-11-03] MEDS: ATORVASTATIN CA 40 MG TABLET (FP) PO SCH ×2 (12:17→22:12)
[2018-11-03] MEDS: ALBUMIN HUMAN 25% 12.5 GM/50 ML VIAL IVPB SCH ×3 (15:05→15:08)
--- NOTE | 2018-11-03 15:13 | CON.CARD ---
Consult Consult Specialty:: Cardiology Referred by:: Jayde Richardson MD Reason for Consultation:: Afib, demand ischemia - History of Present Illness Chief Complaint: Altered mental status History of Present Illness: 78M w/ a history HTN, Atrial Fibrillation (ASA), ESRD on HD, Colon ca s/p resection, Renal Osteodystrophy, PAD s/p recent LLE angioplasty by Dr. Martinez, Dementia, RLE wound, L foot dry gangrene, last office visit 2018 who stays at [facility] referred from HD today for evaluation of AMS and hypotension in context of acute on chronic hypercapneic respiratory failure. Pt currently in the ICU, on BIPAP for respiratory support, undergoing HD. Denies any pain, sob, cp, abd pain, palpitations, near or true syncope, orthopnea, PND , LE edema. 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: Alzheimer's, Other (delirium) Cardio/Vascular: Yes: CAD, HTN Renal/: Yes: Renal Failure - Past Surgical History Past Surgical History: Yes: AV Fistula/Graft - Alcohol/Substance Use Hx Alcohol Use: No History of Substance Use: reports: None - Smoking History Smoking history: Never smoked Have you smoked in the past 12 months: No - Social History Usual Living Arrangement: Residential ADL: Support Services History of Recent Travel: No Home Medications - Allergies Allergies/Adverse Reactions: Allergies Allergy/AdvReac Type Severity Reaction Status Date / Time No Known Allergies Allergy Verified 11/01/18 13:43 - Home Medications Home Medications: Ambulatory Orders Alprazolam [Xanax] 0.5 mg PO BID PRN 08/15/16 Atenolol [Tenormin -] 50 mg PO DAILY 08/15/16 Zolpidem Tartrate [Ambien] 5 mg PO HS 08/15/16 traZODone HCL [Trazodone HCl] 50 mg PO HS 08/15/16 Docusate Sodium [Colace] 2 cap PO HS 06/30/18 Escitalopram Oxalate [Lexapro -] 10 mg PO DAILY 06/30/18 Memantine HCl [Namenda -] 5 mg PO BID 06/30/18 Polyethylene Glycol 3350 [Laxaclear] 1,700 gm PO DAILY 06/30/18 Sennosides [Senna Concentrate] 8.6 mg PO DAILY 06/30/18 Sevelamer Carbonate [Renvela -] 800 mg PO TID 06/30/18 Vit B Comp No.3/Folic/C/Biotin [Nephro-Louie Rx Tablet] 1 each PO DAILY 06/30/18 Acetaminophen [Tylenol .Regular Strength -] 650 mg PO Q6H PRN tablet 08/04/18 Aspirin Coated [Ecotrin -] 81 mg PO DAILY tablet.ec 08/04/18 Aspirin [ASA -] 81 mg PO DAILY #30 tab.chew 08/04/18 Atorvastatin Ca [Lipitor] 40 mg PO HS tablet 08/04/18 Collagenase Clostridium Hist. [Santyl -] 1 applic TP DAILY tube 08/04/18 Cinacalcet HCl [Sensipar -] 60 mg PO DAILY 11/01/18 Clopidogrel Bisulfate [Plavix] 75 mg PO DAILY 11/01/18 Oxycodone HCl/Acetaminophen [Percocet 5-325 mg Tablet] 1 tab PO TID PRN Review of Systems Unable to obtain ROS, reason: Confused - Review of Systems Neurological: reports: Confusion Vital Signs: Vital Signs Temperature 97.8 F 11/03/18 14:00 Pulse Rate 84 11/03/18 15:00 Respiratory Rate 18 11/03/18 15:00 Blood Pressure 110/60 11/03/18 15:00 O2 Sat by Pulse Oximetry (%) 97 11/03/18 13:30 Constitutional: Yes: No Distress, Calm, Thin Neck: Yes: Supple Respiratory: Yes: Regular, Diminished, On BiPap Gastrointestinal: Yes: Soft, Hypoactive Bowel Sounds Cardiovascular: Yes: Pulse Irregular JVD: No Carotid Bruit: No Heart Sounds: Yes: S1, S2 Murmur: Yes: Systolic Murmur, Grade 2 Edema: No - Other Data Labs, Other Data: CBC, BMP 11/03/18 05:30 11/03/18 05:30 INR, PTT INR 1.23 (0.83-1.09) H 11/03/18 05:30 Afib @ 83 LBBB Ejection Fraction %: LVEF > or = 40 % Imaging - Results Chest X-ray: Report Reviewed (R>L pleural effusions) Problem List - Problems (1) ESRD needing dialysis Code(s): N18.6 - END STAGE RENAL DISEASE; Z99.2 - DEPENDENCE ON RENAL DIALYSIS (2) HTN (hypertension) Code(s): I10 - ESSENTIAL (PRIMARY) HYPERTENSION Qualifiers: Hypertension type: essential hypertension Qualified Code(s): I10 - Essential (primary) hypertension (3) Peripheral arterial disease Code(s): I73.9 - PERIPHERAL VASCULAR DISEASE, UNSPECIFIED (4) Anemia Code(s): D64.9 - ANEMIA, UNSPECIFIED Qualifiers: Anemia type: other cause Other causes of anemia: acute posthemorrhagic Qualified Code(s): D62 - Acute posthemorrhagic anemia (5) Atrial fibrillation with RVR Code(s): I48.91 - UNSPECIFIED ATRIAL FIBRILLATION (6) Gangrene of toe of left foot Code(s): I96 - GANGRENE, NOT ELSEWHERE CLASSIFIED (7) Thrombocytopenia Code(s): D69.6 - THROMBOCYTOPENIA, UNSPECIFIED Assessment/Plan 07/01/2018 Echo: Normal LV size and fxn LVEF 55-60%, normal RV size and fxn, mod LAE, mild [place], tr MR, mild-mod TR RVSP 32 mmHg 1. Acute on Chronic Hypoxic and Hypercapneic Respiratory Failure 2. Acute on Chronic Diastolic Heart Failure with subendocardial ischemic injury 3. Elevated LFTs suspect congestive hepatopathy 4. Toxic metabolic encephelopathy with underlying dementia 5. ESRD on HD 6. PAD/Gangrene s/p [place] 7. Atrial Fibrillation 8. Thrombocytopenia P:1. HD per renal with ultrafiltration 2. Continue empiric antibiotics, f/u cultures 3. BiPAP to assist in work of breathing with O2 to keep Spo2 >90% 4. LFTs and trops are downtrending 5. Continue ASA 81 qd, atenolol 50 qd, Liptor 40 qhs, ARB as hemodynamics tolerate 6. Thank you for consultative opportunity
[2018-11-03] MEDS: SILVER SULFADIAZINE 1% TOP CREAM 50 GM JAR TP SCH (17:34)
[2018-11-03] MEDS: MUPIROCIN 2% TOPICAL OINTMENT FOR DECOLONIZATION NS SCH ×2 (17:44→22:10)
--- NOTE | 2018-11-03 17:50 | PN ---
Progress Note, Physician History of Present Illness: on bipap - Current Medication List Current Medications: Active Medications Alprazolam (Xanax -) 0.5 mg PO Q12H PRN PRN Reason: ANXIETY Aspirin (Asa -) 81 mg PO DAILY [facility] Last Admin: 11/03/18 12:12 Dose: Not Given Atenolol (Tenormin -) 50 mg PO DAILY [facility] Last Admin: 11/03/18 12:13 Dose: Not Given Atorvastatin Calcium (Lipitor -) 40 mg PO [facility] Chlorhexidine Gluconate (Hibiclens For Decolonization -) 1 applic TP HS [facility] Last Admin: 11/02/18 23:00 Dose: 1 applic Escitalopram Oxalate (Lexapro -) 10 mg PO DAILY [facility] Last Admin: 11/03/18 12:13 Dose: Not Given Heparin Sodium (Porcine) (Heparin -) 5,000 unit SQ BID [facility] Last Admin: 11/03/18 10:32 Dose: 5,000 unit Piperacillin Sod/Tazobactam (Sod 2.25 gm/ Dextrose) 50 mls @ 100 mls/hr IVPB Q8H-IV [facility]; Protocol Last Admin: 11/03/18 17:35 Dose: 100 mls/hr Sodium Chloride (Normal Saline -) 250 mls @ 3,000 mls/hr IV PRN PRN PRN Reason: Hypotension during Dialysis Stop: 11/04/18 11:41 Mupirocin (Bactroban Ointment (For Decolonization) -) 1 applic NS BID [facility] Stop: 11/07/18 21:59 Last Admin: 11/03/18 17:44 Dose: 1 applic Sevelamer Carbonate (Renvela -) 800 mg PO TIDCM [facility] Last Admin: 11/03/18 17:35 Dose: Not Given Silver Sulfadiazine (Silvadene -) 1 applic TP DAILY [facility] Last Admin: 11/03/18 17:34 Dose: 1 applic Trazodone HCl (Desyrel -) 50 mg PO [facility] - Objective Vital Signs: Vital Signs Temperature 97.8 F 11/03/18 14:00 Pulse Rate 85 11/03/18 15:53 Respiratory Rate 18 11/03/18 15:53 Blood Pressure 104/38 L 11/03/18 15:53 O2 Sat by Pulse Oximetry (%) 94 L 11/03/18 15:46 Constitutional: Yes: No Distress HENT: Yes: Atraumatic Neck: Yes: Supple Cardiovascular: Yes: Regular Rate and Rhythm Respiratory: Yes: Rhonchi Gastrointestinal: Yes: Normal Bowel Sounds Extremities: Yes: Other (figers still dusky L big toe gangrene) Edema: No Peripheral Pulses WNL: Yes Neurological: Yes: Alert Labs: CBC, BMP 11/03/18 05:30 11/03/18 05:30 INR, PTT INR 1.23 (0.83-1.09) H 11/03/18 05:30 Problem List - Problems (1) ESRD needing dialysis Assessment/Plan: on hd renal on board Code(s): N18.6 - END STAGE RENAL DISEASE; Z99.2 - DEPENDENCE ON RENAL DIALYSIS (2) HTN (hypertension) Assessment/Plan: monitor continue meds Code(s): I10 - ESSENTIAL (PRIMARY) HYPERTENSION Qualifiers: Hypertension type: essential hypertension Qualified Code(s): I10 - Essential (primary) hypertension (3) Peripheral arterial disease Assessment/Plan: will call vascular monitor Code(s): I73.9 - PERIPHERAL VASCULAR DISEASE, UNSPECIFIED (4) Sepsis Assessment/Plan: abx per id cxs negative to date Code(s): A41.9 - SEPSIS, UNSPECIFIED ORGANISM Qualifiers: Sepsis type: sepsis due to unspecified organism Qualified Code(s): A41.9 - Sepsis, unspecified organism (5) Atrial fibrillation with RVR Code(s): I48.91 - UNSPECIFIED ATRIAL FIBRILLATION (6) ESRD (end stage renal disease) Code(s): N18.6 - END STAGE RENAL DISEASE
[2018-11-03] MEDS: CHLORHEXIDINE GLUCONATE 4% CLEANSER FOR DECOLONIZATION TP SCH (22:11)
[2018-11-04] MEDS ORDERED: PIPERACILLIN/TAZOBACTAM 2.25 GM VIAL IVPB ONE ×4 (00:57→23:44)
[2018-11-04] MEDS ORDERED: DEXTROSE 5%-WATER - 50 ML IVPB ONE ×4 (00:57→23:44)
[2018-11-04] MEDS: PIPERACILLIN/TAZOB 2.25 GM 2.25 GM in DEXTROSE 5%-WATER - 50 ML IVPB SCH ×3 (02:15→18:55)
[2018-11-04 07:16] LABS: BASO % 0.3 % (0-2.0); EOS % 1.7 % (0-4.5); HEMATOCRIT 37.7 % (35.4-49); HEMOGLOBIN 11.7 GM/dL (11.7-16.9); LYMPH % 18.4 % (8-40); MCH 29.3 pg (25.7-33.7); MCHC 30.9 g/dl (32.0-35.9); MEAN CELL VOLUME 94.8 fl (80-96); MEAN PLT VOLUME 9.9 fl (7.5-11.1); MONO % 15.1 % (3.8-10.2); NEUT % 64.5 % (42.8-82.8); PLATELET COUNT 60 K/MM3 (134-434); RBC 3.98 M/mm3 (4.00-5.60); RDW 21.9 % (11.9-15.9); WHITE BLOOD COUNT 5.8 K/mm3 (4.0-10.0)
[2018-11-04 07:18] LABS: ALBUMIN 3.3 g/dl (3.4-5.0); ALK PHOS 146 U/L (45-117); ANION GAP 17 MMOL/L (8-16); BLOOD UREA NITROGEN 64 mg/dL (7-18); CALCIUM 9.5 mg/dL (8.5-10.1); CHLORIDE 99 mmol/L (98-107); CO2 21 mmol/L (21-32); GLUCOSE,RANDOM 60 mg/dL (74-106); MAGNESIUM 2.6 mg/dL (1.8-2.4); POTASSIUM 4.4 mmol/L (3.5-5.1); SGOT/AST 37 U/L (15-37); SGPT/ALT 59 U/L (13-61); SODIUM 136 mmol/L (136-145); TOT PROT 6.5 g/dl (6.4-8.2)
--- NOTE | 2018-11-04 09:10 | PN ---
Physical Exam: SUBJECTIVE: Patient seen and examined at bedside. No acute events overnight. Pt denies sob, cp, abd pain, n/v, f/c. OBJECTIVE: Vital Signs Period Temp Pulse Resp BP Sys/Medina Pulse Ox Last 24 Hr 97 F-98.4 F 75-99 12-18 87-128/37-77 92-99 GENERAL: Elderly male, lying in bed, Awake, alert, on bipap. cyanosis of the finger tips ++. No acute distress EYES: EOM intact, no pallor or icterus. EARS, NOSE, THROAT: Dry mucous membranes. NECK: Supple, no JVD. LUNGS: B/L basilar crackles, occasional wheeze. HEART: Regular rate and rhythm, normal S1 and S2 with systolic murmur. ABDOMEN: Soft, nontender, no organomegaly, BS +. UPPER EXTREMITIES: R upper arm fistula, no peripheral edema. LOWER EXTREMITIES: 8.4cm x 3.4 cm wound ulcer posterior heel noted with granulation tissue around borders, non-draining, non-erythematous clean. L 1st, 2nd toe gangrene; 3rd toe preserved, no gangrene noted NEUROLOGICAL: No facial droop, confused at baseline. PSYCHIATRIC: Cooperative. Good eye contact. SKIN: No lesions or rashes. CBCD WBC 5.8 K/mm3 (4.0-10.0) 11/04/18 05:30 RBC 3.98 M/mm3 (4.00-5.60) L 11/04/18 05:30 Hgb 11.7 GM/dL (11.7-16.9) 11/04/18 05:30 Hct 37.7 % (35.4-49) 11/04/18 05:30 MCV 94.8 fl (80-96) 11/04/18 05:30 MCHC 30.9 g/dl (32.0-35.9) L 11/04/18 05:30 RDW 21.9 % (11.9-15.9) H 11/04/18 05:30 Plt Count 60 K/MM3 (134-434) L D 11/04/18 05:30 MPV 9.9 fl (7.5-11.1) 11/04/18 05:30 CMP Sodium 136 mmol/L (136-145) 11/04/18 05:30 Potassium 4.4 mmol/L (3.5-5.1) 11/04/18 05:30 Chloride 99 mmol/L (98-107) 11/04/18 05:30 Carbon Dioxide 21 mmol/L (21-32) 11/04/18 05:30 Anion Gap 17 MMOL/L (8-16) H 11/04/18 05:30 BUN 64 mg/dL (7-18) H 11/04/18 05:30 Creatinine 8.0 mg/dL (0.55-1.3) H* 11/04/18 05:30 Creat Clearance w eGFR 6.52 (>60) 11/04/18 05:30 Calcium 9.5 mg/dL (8.5-10.1) 11/04/18 05:30 Total Bilirubin 1.0 mg/dL (0.2-1) 11/04/18 05:30 AST 37 U/L (15-37) 11/04/18 05:30 ALT 59 U/L (13-61) 11/04/18 05:30 Alkaline Phosphatase 146 U/L (45-117) H 11/04/18 05:30 Total Protein 6.5 g/dl (6.4-8.2) 11/04/18 05:30 Albumin 3.3 g/dl (3.4-5.0) L 11/04/18 05:30 Active Medications Alprazolam (Xanax -) 0.5 mg PO Q12H PRN PRN Reason: ANXIETY Apixaban (Eliquis -) 2.5 mg PO BID [facility] Atenolol (Tenormin -) 50 mg PO DAILY [facility] Last Admin: 11/04/18 12:00 Dose: 50 mg Atorvastatin Calcium (Lipitor -) 40 mg PO HS [facility] Last Admin: 11/03/18 22:12 Dose: 40 mg Chlorhexidine Gluconate (Hibiclens For Decolonization -) 1 applic TP HS [facility] Last Admin: 11/03/18 22:11 Dose: 1 applic Escitalopram Oxalate (Lexapro -) 10 mg PO DAILY [facility] Last Admin: 11/03/18 12:13 Dose: Not Given Piperacillin Sod/Tazobactam (Sod 2.25 gm/ Dextrose) 50 mls @ 100 mls/hr IVPB Q8H-IV [facility]; Protocol Last Admin: 11/04/18 12:00 Dose: 100 mls/hr Mupirocin (Bactroban Ointment (For Decolonization) -) 1 applic NS BID [facility] Stop: 11/07/18 21:59 Last Admin: 11/04/18 12:00 Dose: 1 applic Sevelamer Carbonate (Renvela -) 800 mg PO TIDCM [facility] Last Admin: 11/04/18 11:59 Dose: 800 mg Silver Sulfadiazine (Silvadene -) 1 applic TP DAILY [facility] Last Admin: 11/04/18 09:30 Dose: 1 applic Trazodone HCl (Desyrel -) 50 mg PO HS [facility] Last Admin: 11/03/18 22:11 Dose: 50 mg CONSULT: Nephro- Dr. Carter Damon- Dr. Martinez Neuro- IMAGING: * Head CT: No evid of IC pathology. IC structures demonstrate no definite interval change in comparison to prior CT exam of 07/29/18. Interval development of a small amount of fluid is noted within the L mastoid air cells. ASSESSMENT/PLAN: 78M with past medical history of PAD s/p revascularization of tibial arterial disease, HTN, colon CA s/p resection (25 yrs ago), afib (on coumadin) hx of GIB , ESRD (M, W, F), renal osteodystrophy, dementia from [facility] presented to the ED on 11/01/18 for evaluation of altered mental status admitted in ICU for Acute respiratory distress with cyanosis. Neuro # Altered Mental status -Head CT negative for any acute pathology -Per neuro, mental status changes are likely 2/2 metabolic and/or infectious causes. Recommend to investigate findings on head CT of interval development of small amount of fluid is noted within the L mastoid air cells # Depression/Anxiety -Continue Lexapro 10 mg/Trazodone and Xanax prn Pulm # Acute hypoxic respiratory failure -cont bipap, serial ABGs to check for O2 as pt has severe PVD and O2 sat is inaccurate -Flu neg -cont to monitor respiratory status Cardio #Hypertension: currently controlled -continue Atenolol 50 mg daily #Atrial fibrillation-rate controlled -Continue Aspirin, off plavix due to GIB last year #HLD -Continue Lipitor 40mg HS Vascular #B/L lower extremity wounds/PVD/LE gangrene -Revascularization of tibial arteries done two weeks ago at [facility] by Dr. Martinez -Plan is toe amputation for gangrene of the left second digit, as per Dr. Martinez -d/c aspirin and SQH; will put Eliquis 2.5 BID -Per ID, Continue IV Zosyn 2.275 Q8H; await further ID recs -daily wound care for b/l LE ID #r/o PNA -Per ID, cont empiric IV abx; await further ID recs Renal #ESRD -M, W, F. Thursday he became hypotensive while on HD so brought in here. -HD w/ ultrafiltration; may require ultrafiltration today, await nephro recs FEN -Not on IVF; Avoid fluids -Electrolytes to be repeated in AM -NPO for now until respiratory status improves; currently on bipap; Per renal, recommend Renal diet, 1.2L fluid restriction Prophylaxis For DVT: Eliquis 2.5 BID For GI: Not indicated Dispo -full code Visit type - Emergency Visit Emergency Visit: Yes ED Registration Date: 11/01/18 Care time: The patient presented to the Emergency Department on the above date and was hospitalized for further evaluation of their emergent condition. - New Patient This patient is new to me today: No - Critical Care Critical Care patient: Yes Total Critical Care Time (in minutes): 35 Critical Care Statement: The care of this patient involved high complexity decision making to prevent further life threatening deterioration of the patient 's condition and/or to evaluate & treat vital organ system(s) failure or risk of failure.
[2018-11-04] MEDS: SILVER SULFADIAZINE 1% TOP CREAM 50 GM JAR TP SCH (09:30)
[2018-11-04 11:10] LABS: ARTERIAL BLD GAS O2 SATURATION 97.8 % (95-98); ARTERIAL BLOOD GAS BASE EXCESS -4.4 meq/l (-2-2); ARTERIAL BLOOD GAS PCO2 51.2 mmHg (35-45); ARTERIAL BLOOD GAS PO2 130 mmHg (80-105); ARTERIAL BLOOD GAS pH 7.26 (7.35-7.45)
--- NOTE | 2018-11-04 11:47 | EKG ---
Test Reason : Blood Pressure : / mmHG Vent. Rate : 079 BPM Atrial Rate : 125 BPM P-R Int : 000 ms QRS Dur : 144 ms QT Int : 430 ms P-R-T Axes : 000 215 165 degrees QTc Int : 493 ms ATRIAL FIBRILLATION NON-SPECIFIC INTRA-VENTRICULAR CONDUCTION BLOCK POSSIBLE ANTEROLATERAL INFARCT , AGE UNDETERMINED ABNORMAL ECG WHEN COMPARED WITH ECG OF 01-NOV-2018 13:45, NONSPECIFIC T WAVE ABNORMALITY, WORSE IN INFERIOR LEADS Confirmed by SILVER POLLARD, MENDOZA ([id number]) on 11/04/2018 11:47:42 AM Referred By: Confirmed By:MENDOZA SHEPPARD MD
[2018-11-04] MEDS: SEVELAMER CARBONATE 800 MG TAB (FP) PO SCH ×3 (11:54→18:57)
[2018-11-04] MEDS ORDERED: PT OWN MED DRAWER 7, Y5N ONE ×2 (11:57→21:23)
[2018-11-04] MEDS: ASPIRIN 81 MG CHEWABLE TABLETS PO SCH (11:59)
[2018-11-04] MEDS: ATENOLOL 50 MG TABLET (FP) PO SCH (12:00)
[2018-11-04] MEDS: MUPIROCIN 2% TOPICAL OINTMENT FOR DECOLONIZATION NS SCH ×2 (12:00→21:31)
--- NOTE | 2018-11-04 12:01 | PN ---
Progress Note, Physician History of Present Illness: Resting on bipap for acute on chronic hypercapneic respiratory failure. - Current Medication List Current Medications: Active Medications Alprazolam (Xanax -) 0.5 mg PO Q12H PRN PRN Reason: ANXIETY Aspirin (Asa -) 81 mg PO DAILY [facility] Last Admin: 11/03/18 12:12 Dose: Not Given Atenolol (Tenormin -) 50 mg PO DAILY [facility] Last Admin: 11/03/18 12:13 Dose: Not Given Atorvastatin Calcium (Lipitor -) 40 mg PO HS [facility] Last Admin: 11/03/18 22:12 Dose: 40 mg Chlorhexidine Gluconate (Hibiclens For Decolonization -) 1 applic TP HS [facility] Last Admin: 11/03/18 22:11 Dose: 1 applic Escitalopram Oxalate (Lexapro -) 10 mg PO DAILY [facility] Last Admin: 11/03/18 12:13 Dose: Not Given Heparin Sodium (Porcine) (Heparin -) 5,000 unit SQ BID [facility] Last Admin: 11/03/18 22:11 Dose: 5,000 unit Piperacillin Sod/Tazobactam (Sod 2.25 gm/ Dextrose) 50 mls @ 100 mls/hr IVPB Q8H-IV [facility]; Protocol Last Admin: 11/04/18 02:15 Dose: 100 mls/hr Mupirocin (Bactroban Ointment (For Decolonization) -) 1 applic NS BID [facility] Stop: 11/07/18 21:59 Last Admin: 11/03/18 22:10 Dose: 1 applic Sevelamer Carbonate (Renvela -) 800 mg PO TIDCM [facility] Last Admin: 11/03/18 17:35 Dose: Not Given Silver Sulfadiazine (Silvadene -) 1 applic TP DAILY [facility] Last Admin: 11/03/18 17:34 Dose: 1 applic Trazodone HCl (Desyrel -) 50 mg PO HS [facility] Last Admin: 11/03/18 22:11 Dose: 50 mg - Objective Vital Signs: Vital Signs Temperature 97.5 F L 11/04/18 10:00 Pulse Rate 96 H 11/04/18 10:00 Respiratory Rate 118 H 11/04/18 10:00 Blood Pressure 121/97 11/04/18 10:00 O2 Sat by Pulse Oximetry (%) 98 11/04/18 09:00 Constitutional: Yes: No Distress, Calm, Thin Neck: Yes: Supple Cardiovascular: Yes: Pulse Irregular Respiratory: Yes: On BiPap Gastrointestinal: Yes: Soft, Hypoactive Bowel Sounds Edema: No Labs: CBC, BMP 11/04/18 05:30 11/04/18 05:30 INR, PTT INR 1.23 (0.83-1.09) H 11/03/18 05:30 - ....Imaging Chest X-ray: Report Reviewed (Bibasilar changes) Problem List - Problems (1) ESRD needing dialysis Code(s): N18.6 - END STAGE RENAL DISEASE; Z99.2 - DEPENDENCE ON RENAL DIALYSIS (2) HTN (hypertension) Code(s): I10 - ESSENTIAL (PRIMARY) HYPERTENSION Qualifiers: Hypertension type: essential hypertension Qualified Code(s): I10 - Essential (primary) hypertension (3) Peripheral arterial disease Code(s): I73.9 - PERIPHERAL VASCULAR DISEASE, UNSPECIFIED (4) Anemia Code(s): D64.9 - ANEMIA, UNSPECIFIED Qualifiers: Anemia type: other cause Other causes of anemia: acute posthemorrhagic Qualified Code(s): D62 - Acute posthemorrhagic anemia (5) Atrial fibrillation with RVR Code(s): I48.91 - UNSPECIFIED ATRIAL FIBRILLATION (6) Gangrene of toe of left foot Code(s): I96 - GANGRENE, NOT ELSEWHERE CLASSIFIED (7) Thrombocytopenia Code(s): D69.6 - THROMBOCYTOPENIA, UNSPECIFIED Assessment/Plan 07/01/2018 Echo: Normal LV size and fxn LVEF 55-60%, normal RV size and fxn, mod LAE, mild [place], tr MR, mild-mod TR RVSP 32 mmHg 1. Acute on Chronic Hypoxic and Hypercapneic Respiratory Failure 2. Acute on Chronic Diastolic Heart Failure with subendocardial ischemic injury 3. Elevated LFTs suspect congestive hepatopathy 4. Toxic metabolic encephelopathy with underlying dementia 5. ESRD on HD 6. 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 Atrial Fibrillation 8. Thrombocytopenia P:1. HD per renal with ultrafiltration 2. Continue empiric antibiotics, f/u cultures 3. BiPAP to assist in work of breathing with O2 to keep Spo2 >90% 4. LFTs and trops are downtrending 5. D/c ASA 81 qd and sc heparin, start Eliquis 2.5 bid, atenolol 50 qd, Liptor 40 qhs, ARB as hemodynamics tolerate
--- NOTE | 2018-11-04 12:58 | PN ---
Teaching Attending Note Name of Resident: Jillian Tao ATTENDING PHYSICIAN STATEMENT I saw and evaluated the patient. I reviewed the resident's note and discussed the case with the resident. I agree with the resident's findings and plan as documented. SUBJECTIVE: Pt seen and examined in the ICU. Remains on BiPAP. ABG still with respiratory acidosis but more awake, alert today. OBJECTIVE: Vital Signs Period Temp Pulse Resp BP Sys/Medina Pulse Ox Last 24 Hr 97 F-97.8 F 77-99 12-18 88-128/38-97 92-98 Intake & Output 11/01/18 11/02/18 11/03/18 11/04/18 23:59 23:59 23:59 23:59 Intake Total 150 50 Balance 150 50 Weight 82 kg 81.987 kg 84.878 kg 84.822 kg Gen: more awake, alert Heart: RRR Lung: decreased breath sounds at the bases Abd: soft, nontender Ext: no edema, cyanotic fingers slightly improved CBC, BMP 11/04/18 05:30 11/04/18 05:30 Hepatic Panel Total Bilirubin 1.0 mg/dL (0.2-1) 11/04/18 05:30 AST 37 U/L (15-37) 11/04/18 05:30 ALT 59 U/L (13-61) 11/04/18 05:30 Alkaline Phosphatase 146 U/L (45-117) H 11/04/18 05:30 Albumin 3.3 g/dl (3.4-5.0) L 11/04/18 05:30 Active Medications Alprazolam (Xanax -) 0.5 mg PO Q12H PRN PRN Reason: ANXIETY Apixaban (Eliquis -) 2.5 mg PO BID [facility] Atenolol (Tenormin -) 50 mg PO DAILY [facility] Last Admin: 11/04/18 12:00 Dose: 50 mg Atorvastatin Calcium (Lipitor -) 40 mg PO HS [facility] Last Admin: 11/03/18 22:12 Dose: 40 mg Chlorhexidine Gluconate (Hibiclens For Decolonization -) 1 applic TP HS [facility] Last Admin: 11/03/18 22:11 Dose: 1 applic Escitalopram Oxalate (Lexapro -) 10 mg PO DAILY [facility] Last Admin: 11/03/18 12:13 Dose: Not Given Piperacillin Sod/Tazobactam (Sod 2.25 gm/ Dextrose) 50 mls @ 100 mls/hr IVPB Q8H-IV [facility]; Protocol Last Admin: 11/04/18 12:00 Dose: 100 mls/hr Mupirocin (Bactroban Ointment (For Decolonization) -) 1 applic NS BID [facility] Stop: 11/07/18 21:59 Last Admin: 11/04/18 12:00 Dose: 1 applic Sevelamer Carbonate (Renvela -) 800 mg PO TIDCM [facility] Last Admin: 11/04/18 11:59 Dose: 800 mg Silver Sulfadiazine (Silvadene -) 1 applic TP DAILY [facility] Last Admin: 11/04/18 09:30 Dose: 1 applic Trazodone HCl (Desyrel -) 50 mg PO HS [facility] Last Admin: 11/03/18 22:11 Dose: 50 mg ASSESSMENT AND PLAN: Acute on Chronic Hypoxic and Hypercapneic Respiratory Failure Volume Overload Acute on Chronic Diastolic Heart Failure Elevated LFTs suspect congestive hepatopathy r/o Pneumonia r/o UTI ESRD on HD PAD/Gangrene Atrial Fibrillation Thrombocytopenia - HD per renal with ultrafiltration - continue empiric antibiotics - f/u cultures - BiPAP to assist in work of breathing and respiratory acidosis - O2 to keep Spo2 >90% - trend LFTs - aspiration precautions - DVT prophylaxis - continue ICU monitoring critical care time spent in reviewing chart, evaluating patient and formulating plan 35 min
[2018-11-04] MEDS: APIXABAN 2.5 MG TABLET PO SCH ×2 (15:32→21:33)
[2018-11-04] MEDS: ESCITALOPRAM OXALATE 10 MG TABLET (FP) PO SCH (15:33)
--- NOTE | 2018-11-04 16:53 | PN ---
Progress Note (short form) - Note Progress Note: Renal follow up for ESRD Pt seen and examined at the bedside awake and alert on bipap no chest pain, overt sob requesting something to eat or drink Vital Signs Temperature 97.7 F 11/04/18 14:00 Pulse Rate 90 11/04/18 14:00 Respiratory Rate 26 H 11/04/18 14:00 Blood Pressure 111/61 11/04/18 14:00 O2 Sat by Pulse Oximetry (%) 98 11/04/18 09:00 Intake & Output 11/01/18 11/02/18 11/03/18 11/04/18 23:59 23:59 23:59 23:59 Intake Total 150 50 Balance 150 50 Weight 82 kg 81.987 kg 84.878 kg 84.822 kg Awake on BIPAP neck supple, no JVD irregular, no M/R Dec BS, no overt rales + abd distension, no tenderness No LE edema, + UE and LE cyanosis right arm AVF CBC, BMP 11/04/18 05:30 11/04/18 05:30 Current Medications Alprazolam (Xanax -) 0.5 mg PO Q12H PRN PRN Reason: ANXIETY Apixaban (Eliquis -) 2.5 mg PO BID [facility] Last Admin: 11/04/18 15:32 Dose: 2.5 mg Atenolol (Tenormin -) 50 mg PO DAILY [facility] Last Admin: 11/04/18 12:00 Dose: 50 mg Atorvastatin Calcium (Lipitor -) 40 mg PO [facility] Last Admin: 11/03/18 22:12 Dose: 40 mg Chlorhexidine Gluconate (Hibiclens For Decolonization -) 1 applic TP HS [facility] Last Admin: 11/03/18 22:11 Dose: 1 applic Escitalopram Oxalate (Lexapro -) 10 mg PO DAILY [facility] Last Admin: 11/04/18 15:33 Dose: 10 mg Piperacillin Sod/Tazobactam (Sod 2.25 gm/ Dextrose) 50 mls @ 100 mls/hr IVPB Q8H-IV [facility]; Protocol Last Admin: 11/04/18 12:00 Dose: 100 mls/hr Mupirocin (Bactroban Ointment (For Decolonization) -) 1 applic NS BID [facility] Stop: 11/07/18 21:59 Last Admin: 11/04/18 12:00 Dose: 1 applic Sevelamer Carbonate (Renvela -) 800 mg PO TIDCM [facility] Last Admin: 11/04/18 11:59 Dose: 800 mg Silver Sulfadiazine (Silvadene -) 1 applic TP DAILY [facility] Last Admin: 11/04/18 09:30 Dose: 1 applic Trazodone HCl (Desyrel -) 50 mg PO HS [facility] Last Admin: 11/03/18 22:11 Dose: 50 mg 78 year old gentleman with hx of ESRD on HD, Colon Ca s/p resection, Afib, PVD, Dementia with recent hospital admission at [facility] for foot gangrene and PVD now presented from HD unit with AMS and hypotension. #ESRD on HD #Fluid overload with respiratory failure on BIPAP #CHF/Diastolic HF #PVD/LE gangrene #Thrombocytopenia #Anemia #Hyponatremia for HD in AM with aggressive UF continue O2 support as per ICU Vascular follow up holding DARON as hgb > 10 Thank you Amren Machado DO
--- NOTE | 2018-11-04 17:24 | PN ---
Progress Note, Physician History of Present Illness: on bipap - Current Medication List Current Medications: Active Medications Alprazolam (Xanax -) 0.5 mg PO Q12H PRN PRN Reason: ANXIETY Apixaban (Eliquis -) 2.5 mg PO BID [facility] Last Admin: 11/04/18 15:32 Dose: 2.5 mg Atenolol (Tenormin -) 50 mg PO DAILY [facility] Last Admin: 11/04/18 12:00 Dose: 50 mg Atorvastatin Calcium (Lipitor -) 40 mg PO HS [facility] Last Admin: 11/03/18 22:12 Dose: 40 mg Chlorhexidine Gluconate (Hibiclens For Decolonization -) 1 applic TP HS [facility] Last Admin: 11/03/18 22:11 Dose: 1 applic Escitalopram Oxalate (Lexapro -) 10 mg PO DAILY [facility] Last Admin: 11/04/18 15:33 Dose: 10 mg Piperacillin Sod/Tazobactam (Sod 2.25 gm/ Dextrose) 50 mls @ 100 mls/hr IVPB Q8H-IV [facility]; Protocol Last Admin: 11/04/18 12:00 Dose: 100 mls/hr Mupirocin (Bactroban Ointment (For Decolonization) -) 1 applic NS BID [facility] Stop: 11/07/18 21:59 Last Admin: 11/04/18 12:00 Dose: 1 applic Sevelamer Carbonate (Renvela -) 800 mg PO TIDCM [facility] Last Admin: 11/04/18 11:59 Dose: 800 mg Silver Sulfadiazine (Silvadene -) 1 applic TP DAILY [facility] Last Admin: 11/04/18 09:30 Dose: 1 applic Trazodone HCl (Desyrel -) 50 mg PO HS [facility] Last Admin: 11/03/18 22:11 Dose: 50 mg - Objective Vital Signs: Vital Signs Temperature 97.7 F 11/04/18 14:00 Pulse Rate 90 11/04/18 14:00 Respiratory Rate 26 H 11/04/18 14:00 Blood Pressure 111/61 11/04/18 14:00 O2 Sat by Pulse Oximetry (%) 98 11/04/18 09:00 Constitutional: Yes: No Distress HENT: Yes: Atraumatic Neck: Yes: Supple Cardiovascular: Yes: Regular Rate and Rhythm Respiratory: Yes: Rhonchi Gastrointestinal: Yes: Normal Bowel Sounds Extremities: Yes: WNL Edema: No Neurological: Yes: Alert Labs: CBC, BMP 11/04/18 05:30 11/04/18 05:30 INR, PTT INR 1.23 (0.83-1.09) H 11/03/18 05:30 Problem List - Problems (1) ESRD needing dialysis Assessment/Plan: on hd renal on board Code(s): N18.6 - END STAGE RENAL DISEASE; Z99.2 - DEPENDENCE ON RENAL DIALYSIS (2) HTN (hypertension) Assessment/Plan: monitor continue meds Code(s): I10 - ESSENTIAL (PRIMARY) HYPERTENSION Qualifiers: Hypertension type: essential hypertension Qualified Code(s): I10 - Essential (primary) hypertension (3) Peripheral arterial disease Assessment/Plan: dr mauricio bergman patient Code(s): I73.9 - PERIPHERAL VASCULAR DISEASE, UNSPECIFIED (4) Sepsis Assessment/Plan: abx per id cxs negative to date Code(s): A41.9 - SEPSIS, UNSPECIFIED ORGANISM Qualifiers: Sepsis type: sepsis due to unspecified organism Qualified Code(s): A41.9 - Sepsis, unspecified organism (5) Atrial fibrillation with RVR Code(s): I48.91 - UNSPECIFIED ATRIAL FIBRILLATION (6) ESRD (end stage renal disease) Code(s): N18.6 - END STAGE RENAL DISEASE Assessment/Plan cc time 35 min
--- NOTE | 2018-11-04 18:29 | PN ---
Progress Note, Physician History of Present Illness: continues to be in resp distress still needing bipap also mental status still not at base line - Current Medication List Current Medications: Active Medications Alprazolam (Xanax -) 0.5 mg PO Q12H PRN PRN Reason: ANXIETY Apixaban (Eliquis -) 2.5 mg PO BID [facility] Last Admin: 11/04/18 15:32 Dose: 2.5 mg Atenolol (Tenormin -) 50 mg PO DAILY [facility] Last Admin: 11/04/18 12:00 Dose: 50 mg Atorvastatin Calcium (Lipitor -) 40 mg PO HS [facility] Last Admin: 11/03/18 22:12 Dose: 40 mg Chlorhexidine Gluconate (Hibiclens For Decolonization -) 1 applic TP HS [facility] Last Admin: 11/03/18 22:11 Dose: 1 applic Escitalopram Oxalate (Lexapro -) 10 mg PO DAILY [facility] Last Admin: 11/04/18 15:33 Dose: 10 mg Piperacillin Sod/Tazobactam (Sod 2.25 gm/ Dextrose) 50 mls @ 100 mls/hr IVPB Q8H-IV [facility]; Protocol Last Admin: 11/04/18 12:00 Dose: 100 mls/hr Mupirocin (Bactroban Ointment (For Decolonization) -) 1 applic NS BID [facility] Stop: 11/07/18 21:59 Last Admin: 11/04/18 12:00 Dose: 1 applic Sevelamer Carbonate (Renvela -) 800 mg PO TIDCM [facility] Last Admin: 11/04/18 11:59 Dose: 800 mg Silver Sulfadiazine (Silvadene -) 1 applic TP DAILY [facility] Last Admin: 11/04/18 09:30 Dose: 1 applic Trazodone HCl (Desyrel -) 50 mg PO HS [facility] Last Admin: 11/03/18 22:11 Dose: 50 mg - Objective Vital Signs: Vital Signs Temperature 97.7 F 11/04/18 14:00 Pulse Rate 90 11/04/18 14:00 Respiratory Rate 26 H 11/04/18 14:00 Blood Pressure 111/61 11/04/18 14:00 O2 Sat by Pulse Oximetry (%) 98 11/04/18 09:00 Constitutional: Yes: Mild Distress Cardiovascular: Yes: Regular Rate and Rhythm, Murmur Respiratory: Yes: On BiPap, Poor Air Entry Gastrointestinal: Yes: Normal Bowel Sounds, Soft Musculoskeletal: Yes: WNL Extremities: Yes: WNL Neurological: Yes: Confusion, Lethargy, Other Labs: CBC, BMP 11/04/18 05:30 11/04/18 05:30 INR, PTT INR 1.23 (0.83-1.09) H 11/03/18 05:30 Assessment/Plan Acute on Chronic Hypoxic and Hypercapneic Respiratory Failure Volume Overload Acute on Chronic Diastolic Heart Failure Elevated LFTs suspect congestive hepatopathy r/o Pneumonia r/o UTI ESRD on HD PAD/Gangrene Atrial Fibrillation Thrombocytopenia dry gangrene left foot looking at the patient ,he is in resp issues and also mental status issues also he has high chance of apsitation and pneumonia due to that plan continue empiric abx close watch continue bipap will see how patient progresses all cx reports noted rst as per icu cc 38 min
[2018-11-04] MEDS: traZODone HCL 50 MG TABLET (FP) PO SCH (21:31)
[2018-11-04] MEDS: CHLORHEXIDINE GLUCONATE 4% CLEANSER FOR DECOLONIZATION TP SCH (21:34)
[2018-11-04] MEDS: ATORVASTATIN CA 40 MG TABLET (FP) PO SCH (21:35)
[2018-11-04] MEDS ORDERED: ALPRAZolam 0.25 MG TABLET PO ONE (21:54)
[2018-11-05] MEDS: PIPERACILLIN/TAZOB 2.25 GM 2.25 GM in DEXTROSE 5%-WATER - 50 ML IVPB SCH ×3 (03:05→17:56)
--- NOTE | 2018-11-05 07:39 | PN ---
Physical Exam: SUBJECTIVE: Patient seen and examined at bedside. No acute events overnight. Trialed off bipap this AM, however pt not able to tolerate for extended period of time. Switched back to bipap. Cyanosis on fingers remarkably improved. OBJECTIVE: Vital Signs Period Temp Pulse Resp BP Sys/[place] Pulse Ox Last 24 Hr 97.5 F-97.8 F 88-114 13-26 88-167/38-100 93-98 GENERAL: Elderly male, lying in bed, Awake, alert, on bipap. No acute distress EYES: EOM intact, no pallor or icterus. EARS, NOSE, THROAT: Dry mucous membranes. NECK: Supple, no JVD. LUNGS: B/L basilar crackles, occasional wheeze. HEART: Regular rate and rhythm, normal S1 and S2 with systolic murmur. ABDOMEN: Soft, nontender, no organomegaly, BS +. UPPER EXTREMITIES: R upper arm fistula, no peripheral edema. LOWER EXTREMITIES: 8.4cm x 3.4 cm wound ulcer posterior heel noted with granulation tissue around borders, non-draining, non-erythematous clean. L 1st, 2nd toe gangrene; 3rd toe preserved, no gangrene noted NEUROLOGICAL: No facial droop, confused at baseline. PSYCHIATRIC: Cooperative. Good eye contact. SKIN: Fingertips no longer cyanotic. CBCD WBC 5.8 K/mm3 (4.0-10.0) 11/04/18 05:30 RBC 3.98 M/mm3 (4.00-5.60) L 11/04/18 05:30 Hgb 11.7 GM/dL (11.7-16.9) 11/04/18 05:30 Hct 37.7 % (35.4-49) 11/04/18 05:30 MCV 94.8 fl (80-96) 11/04/18 05:30 MCHC 30.9 g/dl (32.0-35.9) L 11/04/18 05:30 RDW 21.9 % (11.9-15.9) H 11/04/18 05:30 Plt Count 60 K/MM3 (134-434) L D 11/04/18 05:30 MPV 9.9 fl (7.5-11.1) 11/04/18 05:30 CMP Sodium 136 mmol/L (136-145) 11/04/18 05:30 Potassium 4.4 mmol/L (3.5-5.1) 11/04/18 05:30 Chloride 99 mmol/L (98-107) 11/04/18 05:30 Carbon Dioxide 21 mmol/L (21-32) 11/04/18 05:30 Anion Gap 17 MMOL/L (8-16) H 11/04/18 05:30 BUN 64 mg/dL (7-18) H 11/04/18 05:30 Creatinine 8.0 mg/dL (0.55-1.3) H* 11/04/18 05:30 Creat Clearance w eGFR 6.52 (>60) 11/04/18 05:30 Calcium 9.5 mg/dL (8.5-10.1) 11/04/18 05:30 Total Bilirubin 1.0 mg/dL (0.2-1) 11/04/18 05:30 AST 37 U/L (15-37) 11/04/18 05:30 ALT 59 U/L (13-61) 11/04/18 05:30 Alkaline Phosphatase 146 U/L (45-117) H 11/04/18 05:30 Total Protein 6.5 g/dl (6.4-8.2) 11/04/18 05:30 Albumin 3.3 g/dl (3.4-5.0) L 11/04/18 05:30 Active Medications Alprazolam (Xanax -) 0.5 mg PO Q12H PRN PRN Reason: ANXIETY Apixaban (Eliquis -) 2.5 mg PO BID [facility] Last Admin: 11/04/18 21:33 Dose: 2.5 mg Atenolol (Tenormin -) 50 mg PO DAILY [facility] Last Admin: 11/04/18 12:00 Dose: 50 mg Atorvastatin Calcium (Lipitor -) 40 mg PO HS [facility] Last Admin: 11/04/18 21:35 Dose: 40 mg Chlorhexidine Gluconate (Hibiclens For Decolonization -) 1 applic TP HS [facility] Last Admin: 11/04/18 21:34 Dose: 1 applic Escitalopram Oxalate (Lexapro -) 10 mg PO DAILY [facility] Last Admin: 11/04/18 15:33 Dose: 10 mg Piperacillin Sod/Tazobactam (Sod 2.25 gm/ Dextrose) 50 mls @ 100 mls/hr IVPB Q8H-IV [facility]; Protocol Last Admin: 11/05/18 03:05 Dose: 100 mls/hr Mupirocin (Bactroban Ointment (For Decolonization) -) 1 applic NS BID [facility] Stop: 11/07/18 21:59 Last Admin: 11/04/18 21:31 Dose: 1 applic Sevelamer Carbonate (Renvela -) 800 mg PO TIDCM [facility] Last Admin: 11/04/18 18:57 Dose: Not Given Silver Sulfadiazine (Silvadene -) 1 applic TP DAILY [facility] Last Admin: 11/04/18 09:30 Dose: 1 applic Trazodone HCl (Desyrel -) 50 mg PO HS [facility] Last Admin: 11/04/18 21:31 Dose: 50 mg CONSULT: Nephro- Dr. Carter Damon- Dr. Martinez Neuro- IMAGING: * Head CT: No evid of IC pathology. IC structures demonstrate no definite interval change in comparison to prior CT exam of 07/29/18. Interval development of a small amount of fluid is noted within the L mastoid air cells. ASSESSMENT/PLAN: 78M with past medical history of PAD s/p revascularization of tibial arterial disease, HTN, colon CA s/p resection (25 yrs ago), afib (on coumadin) hx of GIB , ESRD (M, W, F), renal osteodystrophy, dementia from [facility] presented to the ED on 11/01/18 for evaluation of altered mental status admitted in ICU for Acute respiratory distress with cyanosis. Neuro # Altered Mental status -Head CT negative for any acute pathology -Per neuro, mental status changes are likely 2/2 metabolic and/or infectious causes. Recommend to investigate findings on head CT of interval development of small amount of fluid is noted within the L mastoid air cells # Depression/Anxiety -Continue Lexapro 10 mg/Trazodone and Xanax prn Pulm # Acute hypoxic respiratory failure -cont bipap, serial ABGs to check for O2 as pt has severe PVD and O2 sat is inaccurate -Flu neg -cont to monitor respiratory status Cardio #Hypertension: currently controlled -continue Atenolol 50 mg daily #Atrial fibrillation-rate controlled -Continue Aspirin, off plavix due to GIB last year #HLD -Continue Lipitor 40mg HS Vascular #B/L lower extremity wounds/PVD/LE gangrene -Revascularization of tibial arteries done two weeks ago at [facility] by Dr. Martinez -Plan is toe amputation for gangrene of the left second digit, as per Dr. Martinez -d/c aspirin and SQH; will put Eliquis 2.5 BID -Per ID, Continue IV Zosyn 2.275 Q8H; await further ID recs -daily wound care for b/l LE ID #r/o PNA -Per ID, cont empiric IV abx; await further ID recs Renal #ESRD -M, W, F. Thursday he became hypotensive while on HD so brought in here. -HD w/ ultrafiltration; may require ultrafiltration today, await nephro recs FEN -Not on IVF; Avoid fluids -Electrolytes to be repeated in AM -NPO for now until respiratory status improves; currently on bipap; Per renal, recommend Renal diet, 1.2L fluid restriction Prophylaxis For DVT: Eliquis 2.5 BID For GI: Not indicated Dispo -full code Visit type - Emergency Visit Emergency Visit: Yes ED Registration Date: 11/01/18 Care time: The patient presented to the Emergency Department on the above date and was hospitalized for further evaluation of their emergent condition. - New Patient This patient is new to me today: No - Critical Care Critical Care patient: Yes Total Critical Care Time (in minutes): 36 Critical Care Statement: The care of this patient involved high complexity decision making to prevent further life threatening deterioration of the patient 's condition and/or to evaluate & treat vital organ system(s) failure or risk of failure.
[2018-11-05] MEDS ORDERED: PIPERACILLIN/TAZOBACTAM 2.25 GM VIAL IVPB ONE ×2 (09:28→17:51)
[2018-11-05] MEDS ORDERED: DEXTROSE 5%-WATER - 50 ML IVPB ONE ×2 (09:28→17:51)
[2018-11-05] MEDS ORDERED: SODIUM CHLORIDE 250 ML IV PRN ×3 (10:16→12:48)
[2018-11-05] MEDS: ATENOLOL 50 MG TABLET (FP) PO SCH (10:21)
[2018-11-05] MEDS: APIXABAN 2.5 MG TABLET PO SCH ×2 (10:22→22:21)
[2018-11-05] MEDS: MUPIROCIN 2% TOPICAL OINTMENT FOR DECOLONIZATION NS SCH ×2 (10:22→22:36)
[2018-11-05] MEDS: ESCITALOPRAM OXALATE 10 MG TABLET (FP) PO SCH (10:22)
[2018-11-05] MEDS: SILVER SULFADIAZINE 1% TOP CREAM 50 GM JAR TP SCH (10:23)
[2018-11-05] MEDS: ALBUMIN HUMAN 25% 12.5 GM/50 ML VIAL IVPB SCH ×4 (11:30→13:00)
--- NOTE | 2018-11-05 11:30 | PN ---
Teaching Attending Note Name of Resident: Jillian Tao ATTENDING PHYSICIAN STATEMENT I saw and evaluated the patient. I reviewed the resident's note and discussed the case with the resident. I agree with the resident's findings and plan as documented. SUBJECTIVE: Patient seen and examined in the ICU. Remains on NIPPV support. ABG still with respiratory/metabolic acidosis. NIPPV settings were adjusted to increase minute ventilation. Awake and interactive. CXR: increasing but more awake, alert today. OBJECTIVE: Intake & Output 11/02/18 11/03/18 11/04/18 11/05/18 23:59 23:59 23:59 23:59 Intake Total 150 360 110 Balance 150 360 110 Weight 180 lb 12 oz 187 lb 2 oz 187 lb Last Vital Signs Temp Pulse Resp BP Pulse Ox 97.9 F 84 16 117/78 98 11/05/18 11:10 11/05/18 11:15 11/05/18 11:15 11/05/18 11:15 11/04/18 09:00 Active Medications Albumin Human (Albumin Human 25%) 12.5 gm IVPB Q30M [facility] Alprazolam (Xanax -) 0.5 mg PO Q12H PRN PRN Reason: ANXIETY Apixaban (Eliquis -) 2.5 mg PO BID [facility] Last Admin: 11/05/18 10:22 Dose: 2.5 mg Atenolol (Tenormin -) 50 mg PO DAILY [facility] Last Admin: 11/05/18 10:21 Dose: Not Given Atorvastatin Calcium (Lipitor -) 40 mg PO [facility] Last Admin: 11/04/18 21:35 Dose: 40 mg Chlorhexidine Gluconate (Hibiclens For Decolonization -) 1 applic TP HS [facility] Last Admin: 11/04/18 21:34 Dose: 1 applic Escitalopram Oxalate (Lexapro -) 10 mg PO DAILY [facility] Last Admin: 11/05/18 10:22 Dose: 10 mg Piperacillin Sod/Tazobactam (Sod 2.25 gm/ Dextrose) 50 mls @ 100 mls/hr IVPB Q8H-IV [facility]; Protocol Last Admin: 11/05/18 10:22 Dose: 100 mls/hr Sodium Chloride (Normal Saline -) 250 mls @ 3,000 mls/hr IV PRN PRN PRN Reason: Hypotension during Dialysis Stop: 11/06/18 10:16 Sodium Chloride (Normal Saline -) 250 mls @ 3,000 mls/hr IV PRN PRN PRN Reason: Hypotension during Dialysis Stop: 11/06/18 10:17 Mupirocin (Bactroban Ointment (For Decolonization) -) 1 applic NS BID [facility] Stop: 11/07/18 21:59 Last Admin: 11/04/18 21:31 Dose: 1 applic Sevelamer Carbonate (Renvela -) 800 mg PO TIDCM [facility] Last Admin: 11/04/18 18:57 Dose: Not Given Silver Sulfadiazine (Silvadene -) 1 applic TP DAILY [facility] Last Admin: 11/05/18 10:23 Dose: 1 applic Trazodone HCl (Desyrel -) 50 mg PO HS [facility] Last Admin: 11/04/18 21:31 Dose: 50 mg Gen: Awake and responsive on NIPPV support Heart: RRR Lung: Bibasilar rales decreased breath sounds at the bases Abd: soft, nontender Ext: no edema, cyanotic fingers slightly improved Laboratory Results - last 24 hr 11/03/18 14:45 Hep C Ab Diagnostic 0.1 ASSESSMENT AND PLAN: Acute on Chronic Hypoxic and Hypercapneic Respiratory Failure Volume Overload Acute on Chronic Diastolic Heart Failure Elevated LFTs suspect congestive hepatopathy r/o Pneumonia r/o UTI ESRD on HD PAD/Gangrene Atrial Fibrillation Thrombocytopenia - NIPPV settings were adjusted to increase minute ventilation - HD per renal with ultrafiltration - continue empiric antibiotics - f/u cultures - O2 to keep Spo2 >90% - aspiration precautions - DVT prophylaxis - continue ICU monitoring for tenuous respiratory status Dr Das Critical care time spent in reviewing chart, evaluating patient and formulating plan 36 min
--- NOTE | 2018-11-05 11:50 | PN ---
Progress Note, Physician History of Present Illness: Resting on bipap for acute on chronic hypercapneic respiratory failure, undergoing HD. - Current Medication List Current Medications: Active Medications Albumin Human (Albumin Human 25%) 12.5 gm IVPB Q30M [facility] Alprazolam (Xanax -) 0.5 mg PO Q12H PRN PRN Reason: ANXIETY Apixaban (Eliquis -) 2.5 mg PO BID [facility] Last Admin: 11/05/18 10:22 Dose: 2.5 mg Atenolol (Tenormin -) 50 mg PO DAILY [facility] Last Admin: 11/05/18 10:21 Dose: Not Given Atorvastatin Calcium (Lipitor -) 40 mg PO [facility] Last Admin: 11/04/18 21:35 Dose: 40 mg Chlorhexidine Gluconate (Hibiclens For Decolonization -) 1 applic TP HS [facility] Last Admin: 11/04/18 21:34 Dose: 1 applic Escitalopram Oxalate (Lexapro -) 10 mg PO DAILY [facility] Last Admin: 11/05/18 10:22 Dose: 10 mg Piperacillin Sod/Tazobactam (Sod 2.25 gm/ Dextrose) 50 mls @ 100 mls/hr IVPB Q8H-IV [facility]; Protocol Last Admin: 11/05/18 10:22 Dose: 100 mls/hr Sodium Chloride (Normal Saline -) 250 mls @ 3,000 mls/hr IV PRN PRN PRN Reason: Hypotension during Dialysis Stop: 11/06/18 10:16 Sodium Chloride (Normal Saline -) 250 mls @ 3,000 mls/hr IV PRN PRN PRN Reason: Hypotension during Dialysis Stop: 11/06/18 10:17 Mupirocin (Bactroban Ointment (For Decolonization) -) 1 applic NS BID [facility] Stop: 11/07/18 21:59 Last Admin: 11/04/18 21:31 Dose: 1 applic Sevelamer Carbonate (Renvela -) 800 mg PO TIDCM [facility] Last Admin: 11/04/18 18:57 Dose: Not Given Silver Sulfadiazine (Silvadene -) 1 applic TP DAILY [facility] Last Admin: 11/05/18 10:23 Dose: 1 applic Trazodone HCl (Desyrel -) 50 mg PO [facility] Last Admin: 11/04/18 21:31 Dose: 50 mg - Objective Vital Signs: Vital Signs Temperature 97.9 F 11/05/18 11:10 Pulse Rate 84 11/05/18 11:15 Respiratory Rate 16 11/05/18 11:15 Blood Pressure 117/78 11/05/18 11:15 O2 Sat by Pulse Oximetry (%) 98 11/04/18 09:00 Constitutional: Yes: No Distress, Calm Neck: Yes: Supple Cardiovascular: Yes: Regular Rate and Rhythm Respiratory: Yes: Regular, Diminished, On BiPap Gastrointestinal: Yes: Normal Bowel Sounds, Soft Edema: No Labs: CBC, BMP 11/04/18 05:30 11/04/18 05:30 INR, PTT INR 1.23 (0.83-1.09) H 11/03/18 05:30 - ....Imaging Chest X-ray: Report Reviewed (Right effusion) Problem List - Problems (1) ESRD needing dialysis Code(s): N18.6 - END STAGE RENAL DISEASE; Z99.2 - DEPENDENCE ON RENAL DIALYSIS (2) HTN (hypertension) Code(s): I10 - ESSENTIAL (PRIMARY) HYPERTENSION Qualifiers: Hypertension type: essential hypertension Qualified Code(s): I10 - Essential (primary) hypertension (3) Peripheral arterial disease Code(s): I73.9 - PERIPHERAL VASCULAR DISEASE, UNSPECIFIED (4) Anemia Code(s): D64.9 - ANEMIA, UNSPECIFIED Qualifiers: Anemia type: other cause Other causes of anemia: acute posthemorrhagic Qualified Code(s): D62 - Acute posthemorrhagic anemia (5) Atrial fibrillation with RVR Code(s): I48.91 - UNSPECIFIED ATRIAL FIBRILLATION (6) Gangrene of toe of left foot Code(s): I96 - GANGRENE, NOT ELSEWHERE CLASSIFIED (7) Thrombocytopenia Code(s): D69.6 - THROMBOCYTOPENIA, UNSPECIFIED Assessment/Plan 07/01/2018 Echo: Normal LV size and fxn LVEF 55-60%, normal RV size and fxn, mod LAE, mild [place], tr MR, mild-mod TR RVSP 32 mmHg 1. Acute on Chronic Hypoxic and Hypercapneic Respiratory Failure 2. Acute on Chronic Diastolic Heart Failure with subendocardial ischemic injury 3. Elevated LFTs suspect congestive hepatopathy 4. Toxic metabolic encephelopathy with underlying dementia 5. ESRD on HD 6. PAD/Gangrene s/p [employer] 7. Atrial Fibrillation 8. Thrombocytopenia P:1. HD per renal with ultrafiltration 2. Continue empiric antibiotics, f/u cultures 3. BiPAP to assist in work of breathing with O2 to keep Spo2 >90% 4. LFTs and trops are downtrending 5. Started Eliquis 2.5 bid, atenolol 50 qd, Liptor 40 qhs, ARB as hemodynamics tolerate
[2018-11-05 11:57] LABS: HEMATOCRIT 34.6 % (35.4-49); HEMOGLOBIN 10.8 GM/dL (11.7-16.9); MCH 28.9 pg (25.7-33.7); MCHC 31.1 g/dl (32.0-35.9); MEAN PLT VOLUME 10.2 fl (7.5-11.1); PLATELET COUNT 59 K/MM3 (134-434); RBC 3.72 M/mm3 (4.00-5.60); WHITE BLOOD COUNT 6.3 K/mm3 (4.0-10.0)
[2018-11-05 12:23] LABS: HBSAG SCREEN Negative (Negative); HEP A AB, IGM Negative (Negative); HEP B CORE AB, TOT Positive (Negative)
[2018-11-05 12:43] LABS: ANION GAP 16 MMOL/L (8-16); BLOOD UREA NITROGEN 75 mg/dL (7-18); CALCIUM 10.1 mg/dL (8.5-10.1); CHLORIDE 100 mmol/L (98-107); CO2 20 mmol/L (21-32); GLUCOSE,RANDOM 70 mg/dL (74-106); PHOSPHOROUS 8.4 mg/dL (2.5-4.9); POTASSIUM 5.1 mmol/L (3.5-5.1); SODIUM 135 mmol/L (136-145)
--- NOTE | 2018-11-05 12:48 | PN ---
Progress Note (short form) - Note Progress Note: Renal follow up for ESRD Pt seen and examined in the ICU on BIPAP, has been on it overnight more confused today BP is marginal denies any pain for dialysis today Vital Signs Temperature 97.9 F 11/05/18 11:10 Pulse Rate 96 H 11/05/18 12:15 Respiratory Rate 13 11/05/18 12:15 Blood Pressure 113/37 L 11/05/18 12:15 O2 Sat by Pulse Oximetry (%) 98 11/04/18 09:00 Intake & Output 11/02/18 11/03/18 11/04/18 11/05/18 23:59 23:59 23:59 23:59 Intake Total 150 360 110 Balance 150 360 110 Weight 81.987 kg 84.878 kg 84.822 kg Awake on BIPAP neck supple, no JVD irregular, no M/R Dec BS, no overt rales + abd distension, no tenderness No LE edema, + UE and LE cyanosis right arm AVF CBC, BMP 11/05/18 11:15 11/05/18 11:15 Current Medications Albumin Human (Albumin Human 25%) 12.5 gm IVPB Q30M [facility] Alprazolam (Xanax -) 0.5 mg PO Q12H PRN PRN Reason: ANXIETY Apixaban (Eliquis -) 2.5 mg PO BID [facility] Last Admin: 11/05/18 10:22 Dose: 2.5 mg Atenolol (Tenormin -) 50 mg PO DAILY [facility] Last Admin: 11/05/18 10:21 Dose: Not Given Atorvastatin Calcium (Lipitor -) 40 mg PO HS [facility] Last Admin: 11/04/18 21:35 Dose: 40 mg Chlorhexidine Gluconate (Hibiclens For Decolonization -) 1 applic TP HS [facility] Last Admin: 11/04/18 21:34 Dose: 1 applic Escitalopram Oxalate (Lexapro -) 10 mg PO DAILY [facility] Last Admin: 11/05/18 10:22 Dose: 10 mg Piperacillin Sod/Tazobactam (Sod 2.25 gm/ Dextrose) 50 mls @ 100 mls/hr IVPB Q8H-IV [facility]; Protocol Last Admin: 11/05/18 10:22 Dose: 100 mls/hr Sodium Chloride (Normal Saline -) 250 mls @ 3,000 mls/hr IV PRN PRN PRN Reason: Hypotension during Dialysis Stop: 11/06/18 10:16 Sodium Chloride (Normal Saline -) 250 mls @ 3,000 mls/hr IV PRN PRN PRN Reason: Hypotension during Dialysis Stop: 11/06/18 10:17 Mupirocin (Bactroban Ointment (For Decolonization) -) 1 applic NS BID [facility] Stop: 11/07/18 21:59 Last Admin: 11/04/18 21:31 Dose: 1 applic Sevelamer Carbonate (Renvela -) 800 mg PO TIDCM [facility] Last Admin: 11/04/18 18:57 Dose: Not Given Silver Sulfadiazine (Silvadene -) 1 applic TP DAILY [facility] Last Admin: 11/05/18 10:23 Dose: 1 applic Trazodone HCl (Desyrel -) 50 mg PO HS [facility] Last Admin: 11/04/18 21:31 Dose: 50 mg 78 year old gentleman with hx of ESRD on HD, Colon Ca s/p resection, Afib, PVD, Dementia with recent hospital admission at [facility] for foot gangrene and PVD now presented from HD unit with AMS and hypotension. #ESRD on HD #Fluid overload with respiratory failure on BIPAP #CHF/Diastolic HF #PVD/LE gangrene #Thrombocytopenia #Anemia #Hyponatremia HD today with aggressive UF will plan for isolated UF tomorrow a well continue supplemental O2/BIPAP Fluid restriction of 1.2L Thank you Armen Machado DO
--- NOTE | 2018-11-05 12:59 | PN ---
Progress Note, Physician History of Present Illness: on bipap - Current Medication List Current Medications: Active Medications Albumin Human (Albumin Human 25%) 12.5 gm IVPB Q30M [facility] Albumin Human (Albumin Human 25%) 12.5 gm IVPB Q30M [facility] Alprazolam (Xanax -) 0.5 mg PO Q12H PRN PRN Reason: ANXIETY Apixaban (Eliquis -) 2.5 mg PO BID [facility] Last Admin: 11/05/18 10:22 Dose: 2.5 mg Atenolol (Tenormin -) 50 mg PO DAILY [facility] Last Admin: 11/05/18 10:21 Dose: Not Given Atorvastatin Calcium (Lipitor -) 40 mg PO HS [facility] Last Admin: 11/04/18 21:35 Dose: 40 mg Chlorhexidine Gluconate (Hibiclens For Decolonization -) 1 applic TP HS [facility] Last Admin: 11/04/18 21:34 Dose: 1 applic Escitalopram Oxalate (Lexapro -) 10 mg PO DAILY [facility] Last Admin: 11/05/18 10:22 Dose: 10 mg Piperacillin Sod/Tazobactam (Sod 2.25 gm/ Dextrose) 50 mls @ 100 mls/hr IVPB Q8H-IV [facility]; Protocol Last Admin: 11/05/18 10:22 Dose: 100 mls/hr Sodium Chloride (Normal Saline -) 250 mls @ 3,000 mls/hr IV PRN PRN PRN Reason: Hypotension during Dialysis Stop: 11/06/18 10:16 Sodium Chloride (Normal Saline -) 250 mls @ 3,000 mls/hr IV PRN PRN PRN Reason: Hypotension during Dialysis Stop: 11/06/18 10:17 Sodium Chloride (Normal Saline -) 250 mls @ 3,000 mls/hr IV PRN PRN PRN Reason: Hypotension during Dialysis Stop: 11/06/18 12:48 Mupirocin (Bactroban Ointment (For Decolonization) -) 1 applic NS BID [facility] Stop: 11/07/18 21:59 Last Admin: 11/04/18 21:31 Dose: 1 applic Sevelamer Carbonate (Renvela -) 800 mg PO TIDCM [facility] Last Admin: 11/04/18 18:57 Dose: Not Given Silver Sulfadiazine (Silvadene -) 1 applic TP DAILY [facility] Last Admin: 11/05/18 10:23 Dose: 1 applic Trazodone HCl (Desyrel -) 50 mg PO HS [facility] Last Admin: 11/04/18 21:31 Dose: 50 mg - Objective Vital Signs: Vital Signs Temperature 97.9 F 11/05/18 11:10 Pulse Rate 96 H 11/05/18 12:15 Respiratory Rate 13 11/05/18 12:15 Blood Pressure 113/37 L 11/05/18 12:15 O2 Sat by Pulse Oximetry (%) 98 11/04/18 09:00 Constitutional: Yes: Calm HENT: Yes: Atraumatic Neck: Yes: Supple Cardiovascular: Yes: Regular Rate and Rhythm Respiratory: Yes: Rhonchi Gastrointestinal: Yes: Normal Bowel Sounds Neurological: Yes: Alert, Oriented Labs: CBC, BMP 11/05/18 11:15 11/05/18 11:15 INR, PTT INR 1.23 (0.83-1.09) H 11/03/18 05:30 Problem List - Problems (1) ESRD needing dialysis Assessment/Plan: on hd renal on board Code(s): N18.6 - END STAGE RENAL DISEASE; Z99.2 - DEPENDENCE ON RENAL DIALYSIS (2) HTN (hypertension) Assessment/Plan: monitor continue meds Code(s): I10 - ESSENTIAL (PRIMARY) HYPERTENSION Qualifiers: Hypertension type: essential hypertension Qualified Code(s): I10 - Essential (primary) hypertension (3) Peripheral arterial disease Assessment/Plan: dr mauricio castano saw patient Code(s): I73.9 - PERIPHERAL VASCULAR DISEASE, UNSPECIFIED (4) Sepsis Assessment/Plan: abx per id cxs negative to date Code(s): A41.9 - SEPSIS, UNSPECIFIED ORGANISM Qualifiers: Sepsis type: sepsis due to unspecified organism Qualified Code(s): A41.9 - Sepsis, unspecified organism (5) Atrial fibrillation with RVR Code(s): I48.91 - UNSPECIFIED ATRIAL FIBRILLATION (6) ESRD (end stage renal disease) Assessment/Plan: on hd will call renal Code(s): N18.6 - END STAGE RENAL DISEASE Assessment/Plan cc time 35 min
[2018-11-05] MEDS: SEVELAMER CARBONATE 800 MG TAB (FP) PO SCH ×2 (13:36→17:46)
--- NOTE | 2018-11-05 15:17 | PN ---
Progress Note, Physician History of Present Illness: stable breathing calmly still on bipap - Current Medication List Current Medications: Active Medications Albumin Human (Albumin Human 25%) 12.5 gm IVPB Q30M [facility] Alprazolam (Xanax -) 0.5 mg PO Q12H PRN PRN Reason: ANXIETY Apixaban (Eliquis -) 2.5 mg PO BID [facility] Last Admin: 11/05/18 10:22 Dose: 2.5 mg Atenolol (Tenormin -) 50 mg PO DAILY [facility] Last Admin: 11/05/18 10:21 Dose: Not Given Atorvastatin Calcium (Lipitor -) 40 mg PO HS [facility] Last Admin: 11/04/18 21:35 Dose: 40 mg Chlorhexidine Gluconate (Hibiclens For Decolonization -) 1 applic TP HS [facility] Last Admin: 11/04/18 21:34 Dose: 1 applic Escitalopram Oxalate (Lexapro -) 10 mg PO DAILY [facility] Last Admin: 11/05/18 10:22 Dose: 10 mg Piperacillin Sod/Tazobactam (Sod 2.25 gm/ Dextrose) 50 mls @ 100 mls/hr IVPB Q8H-IV [facility]; Protocol Last Admin: 11/05/18 10:22 Dose: 100 mls/hr Sodium Chloride (Normal Saline -) 250 mls @ 3,000 mls/hr IV PRN PRN PRN Reason: Hypotension during Dialysis Stop: 11/06/18 10:16 Sodium Chloride (Normal Saline -) 250 mls @ 3,000 mls/hr IV PRN PRN PRN Reason: Hypotension during Dialysis Stop: 11/06/18 10:17 Sodium Chloride (Normal Saline -) 250 mls @ 3,000 mls/hr IV PRN PRN PRN Reason: Hypotension during Dialysis Stop: 11/06/18 12:48 Mupirocin (Bactroban Ointment (For Decolonization) -) 1 applic NS BID [facility] Stop: 11/07/18 21:59 Last Admin: 11/05/18 10:22 Dose: Not Given Sevelamer Carbonate (Renvela -) 800 mg PO TIDCM [facility] Last Admin: 11/05/18 13:36 Dose: Not Given Silver Sulfadiazine (Silvadene -) 1 applic TP DAILY [facility] Last Admin: 11/05/18 10:23 Dose: 1 applic Trazodone HCl (Desyrel -) 50 mg PO HS [facility] Last Admin: 11/04/18 21:31 Dose: 50 mg - Objective Vital Signs: Vital Signs Temperature 98.0 F 11/05/18 15:00 Pulse Rate 92 H 11/05/18 15:00 Respiratory Rate 18 11/05/18 15:00 Blood Pressure 104/68 11/05/18 15:00 O2 Sat by Pulse Oximetry (%) 98 11/04/18 09:00 Constitutional: Yes: No Distress, Calm Cardiovascular: Yes: Regular Rate and Rhythm Respiratory: Yes: Regular, On BiPap, Poor Air Entry Gastrointestinal: Yes: Normal Bowel Sounds, Soft Musculoskeletal: Yes: WNL Extremities: Yes: WNL Neurological: Yes: Alert, Confusion, Other Psychiatric: Yes: Other Labs: CBC, BMP 11/05/18 11:15 11/05/18 11:15 INR, PTT INR 1.23 (0.83-1.09) H 11/03/18 05:30 - ....Imaging Chest X-ray: Report Reviewed, Image Reviewed Assessment/Plan Acute on Chronic Hypoxic and Hypercapneic Respiratory Failure Volume Overload Acute on Chronic Diastolic Heart Failure Elevated LFTs suspect congestive hepatopathy r/o Pneumonia r/o UTI ESRD on HD PAD/Gangrene Atrial Fibrillation Thrombocytopenia dry gangrene left foot looking at the patient ,he is in resp issues and also mental status issues also he has high chance of apsitation and pneumonia due to that plan continue empiric abx close watch continue bipap will see how patient progresses all cx reports noted rst as per icu wean off of bipap as tolerated cc 38 min
[2018-11-05] MEDS ORDERED: PT OWN MED DRAWER 7, Y5N ONE (22:20)
[2018-11-05] MEDS: ALPRAZolam 0.25 MG TABLET PO PRN (22:20)
[2018-11-05] MEDS: ATORVASTATIN CA 40 MG TABLET (FP) PO SCH (22:21)
[2018-11-05] MEDS: traZODone HCL 50 MG TABLET (FP) PO SCH (22:21)
[2018-11-05] MEDS: CHLORHEXIDINE GLUCONATE 4% CLEANSER FOR DECOLONIZATION TP SCH (22:36)
[2018-11-06] MEDS ORDERED: PIPERACILLIN/TAZOBACTAM 2.25 GM VIAL IVPB ONE ×3 (02:49→17:02)
[2018-11-06] MEDS ORDERED: DEXTROSE 5%-WATER - 50 ML IVPB ONE ×3 (02:49→17:02)
[2018-11-06] MEDS: PIPERACILLIN/TAZOB 2.25 GM 2.25 GM in DEXTROSE 5%-WATER - 50 ML IVPB SCH ×3 (03:03→17:25)
[2018-11-06 06:20] LABS: BASO % 0.7 % (0-2.0); EOS % 1.3 % (0-4.5); HEMATOCRIT 34.3 % (35.4-49); HEMOGLOBIN 10.6 GM/dL (11.7-16.9); LYMPH % 16.4 % (8-40); MCH 29.1 pg (25.7-33.7); MEAN PLT VOLUME 10.1 fl (7.5-11.1); MONO % 21.7 % (3.8-10.2); NEUT % 59.9 % (42.8-82.8); PLATELET COUNT 58 K/MM3 (134-434); RBC 3.65 M/mm3 (4.00-5.60); RDW 22.7 % (11.9-15.9); WHITE BLOOD COUNT 6.7 K/mm3 (4.0-10.0)
[2018-11-06] MEDS: ALBUMIN HUMAN 25% 12.5 GM/50 ML VIAL IVPB SCH ×4 (07:00→08:30)
[2018-11-06 07:36] LABS: ALBUMIN 2.9 g/dl (3.4-5.0); ALK PHOS 123 U/L (45-117); ANION GAP 8 MMOL/L (8-16); BLOOD UREA NITROGEN 51 mg/dL (7-18); CALCIUM 10.1 mg/dL (8.5-10.1); CHLORIDE 101 mmol/L (98-107); CO2 28 mmol/L (21-32); CREATININE 6.3 mg/dL (0.55-1.3); GLUCOSE,RANDOM 94 mg/dL (74-106); MAGNESIUM 2.4 mg/dL (1.8-2.4); PHOSPHOROUS 5.4 mg/dL (2.5-4.9); POTASSIUM 3.9 mmol/L (3.5-5.1); SGOT/AST 35 U/L (15-37); SGPT/ALT 51 U/L (13-61); SODIUM 138 mmol/L (136-145); TOT PROT 6.1 g/dl (6.4-8.2)
--- NOTE | 2018-11-06 09:11 | PN ---
Progress Note, Physician Chief Complaint: Pt confused, moving around in bed while undergoing hemodialysis (HD). History of Present Illness: 78y/o M h/o ESRD on M/W/F dialysis, HTN, afib, diastolic CHF,now sent from dialysis for generalized weakness/AMS. Pt awoke with increased weakness today, had more trouble moving from bed-chair than usual. Went to scheduled dialysis and HD initiated but weakness/confusion persisted so HD stopped and sent to ED. has been receiving abx at HD, ? for osteomyelitis. - Current Medication List Current Medications: Active Medications Alprazolam (Xanax -) 0.5 mg PO Q12H PRN PRN Reason: ANXIETY Last Admin: 11/05/18 22:20 Dose: 0.5 mg Apixaban (Eliquis -) 2.5 mg PO BID [facility] Last Admin: 11/05/18 22:21 Dose: 2.5 mg Atenolol (Tenormin -) 50 mg PO DAILY [facility] Last Admin: 11/05/18 10:21 Dose: Not Given Atorvastatin Calcium (Lipitor -) 40 mg PO HS [facility] Last Admin: 11/05/18 22:21 Dose: 40 mg Chlorhexidine Gluconate (Hibiclens For Decolonization -) 1 applic TP HS [facility] Last Admin: 11/05/18 22:36 Dose: 1 applic Escitalopram Oxalate (Lexapro -) 10 mg PO DAILY [facility] Last Admin: 11/05/18 10:22 Dose: 10 mg Piperacillin Sod/Tazobactam (Sod 2.25 gm/ Dextrose) 50 mls @ 100 mls/hr IVPB Q8H-IV [facility]; Protocol Last Admin: 11/06/18 03:03 Dose: 100 mls/hr Sodium Chloride (Normal Saline -) 250 mls @ 3,000 mls/hr IV PRN PRN PRN Reason: Hypotension during Dialysis Stop: 11/06/18 10:16 Sodium Chloride (Normal Saline -) 250 mls @ 3,000 mls/hr IV PRN PRN PRN Reason: Hypotension during Dialysis Stop: 11/06/18 10:17 Sodium Chloride (Normal Saline -) 250 mls @ 3,000 mls/hr IV PRN PRN PRN Reason: Hypotension during Dialysis Stop: 11/06/18 12:48 Mupirocin (Bactroban Ointment (For Decolonization) -) 1 applic NS BID [facility] Stop: 11/07/18 21:59 Last Admin: 11/05/18 22:36 Dose: 1 applic Sevelamer Carbonate (Renvela -) 800 mg PO TIDCM [facility] Last Admin: 11/05/18 17:46 Dose: Not Given Silver Sulfadiazine (Silvadene -) 1 applic TP DAILY [facility] Last Admin: 11/05/18 10:23 Dose: 1 applic Trazodone HCl (Desyrel -) 50 mg PO HS [facility] Last Admin: 11/05/18 22:21 Dose: 50 mg - Objective Vital Signs: Vital Signs Temperature 98.0 F 11/05/18 15:00 Pulse Rate 105 H 11/06/18 08:00 Respiratory Rate 16 11/06/18 08:00 Blood Pressure 122/101 H 11/06/18 08:00 O2 Sat by Pulse Oximetry (%) 97 11/06/18 08:56 Constitutional: Yes: Anxious Eyes: Yes: WNL HENT: Yes: WNL Neck: Yes: WNL Cardiovascular: Yes: Pulse Irregular Respiratory: Yes: Regular Gastrointestinal: Yes: Distention, Other (central abdominal distention; ? ventral hernia) Genitourinary: Yes: Anuria, Other (undergoing HD) Extremities: Yes: Cool, Other (left inner thigh large purpura (delinieated with marker; no enlargement)) Peripheral Pulses WNL: Yes Integumentary: Yes: Other (left thigh purpura) Neurological: Yes: Weakness Psychiatric: Yes: Other Labs: CBC, BMP 11/06/18 05:30 11/06/18 05:30 INR, PTT INR 1.23 (0.83-1.09) H 11/03/18 05:30 Abnormal Lab Results 11/03/18 11/05/18 11/05/18 14:45 11:15 11:15 RBC 3.72 L Hgb 10.8 L Hct 34.6 L MCHC 31.1 L RDW 22.0 H Plt Count 59 L Monocytes % Sodium 135 L Carbon Dioxide 20 L BUN 75 H Creatinine 9.0 H* Random Glucose 70 L Phosphorus 8.4 H Alkaline Phosphatase Total Protein Albumin Hepatitis A Ab Total Positive H Hep B Core Total Ab Positive H 11/06/18 11/06/18 05:30 05:30 RBC 3.65 L Hgb 10.6 L Hct 34.3 L MCHC 31.0 L RDW 22.7 H Plt Count 58 L Monocytes % 21.7 H Sodium Carbon Dioxide BUN 51 H Creatinine 6.3 H Random Glucose Phosphorus 5.4 H Alkaline Phosphatase 123 H Total Protein 6.1 L Albumin 2.9 L Hepatitis A Ab Total Hep B Core Total Ab Abnormal Lab Results 11/08/18 05:30 BUN 94 H - ....Imaging Other: Image Reviewed (telemetry: AF) Problem List - Problems (1) ESRD needing dialysis Assessment/Plan: undergoing HD; for fluid removal. Code(s): N18.6 - END STAGE RENAL DISEASE; Z99.2 - DEPENDENCE ON RENAL DIALYSIS (2) Encephalopathy Code(s): G93.40 - ENCEPHALOPATHY, UNSPECIFIED (3) HTN (hypertension) Assessment/Plan: on atenolol for HR and BP control. Code(s): I10 - ESSENTIAL (PRIMARY) HYPERTENSION Qualifiers: Hypertension type: essential hypertension Qualified Code(s): I10 - Essential (primary) hypertension (4) Peripheral arterial disease Code(s): I73.9 - PERIPHERAL VASCULAR DISEASE, UNSPECIFIED (5) Atrial fibrillation with RVR Assessment/Plan: On atenolol for HR control. On apixaban for anticoagulation. Code(s): I48.91 - UNSPECIFIED ATRIAL FIBRILLATION (6) Gangrene of toe of left foot Assessment/Plan: on antibiotics. F/u with vascular surgeon. Code(s): I96 - GANGRENE, NOT ELSEWHERE CLASSIFIED (7) Respiratory distress Assessment/Plan: On Bipap. Code(s): R06.03 - ACUTE RESPIRATORY DISTRESS (8) Anxiety Assessment/Plan: Hx alzeimers On Lexapro and benzodiazepine Code(s): F41.9 - ANXIETY DISORDER, UNSPECIFIED (9) Acute on chronic diastolic CHF (congestive heart failure) Assessment/Plan: On atenolol. On hemodialysis 3x/wk. F/u Code(s): I50.33 - ACUTE ON CHRONIC DIASTOLIC (CONGESTIVE) HEART FAILURE Assessment/Plan CCU time spent: 35 minutes
[2018-11-06] MEDS: SEVELAMER CARBONATE 800 MG TAB (FP) PO SCH ×3 (10:52→17:25)
[2018-11-06] MEDS: SILVER SULFADIAZINE 1% TOP CREAM 50 GM JAR TP SCH (11:00)
[2018-11-06] MEDS: ESCITALOPRAM OXALATE 10 MG TABLET (FP) PO SCH (11:09)
[2018-11-06] MEDS: ATENOLOL 50 MG TABLET (FP) PO SCH (11:10)
[2018-11-06] MEDS: APIXABAN 2.5 MG TABLET PO SCH ×2 (11:10→23:18)
[2018-11-06 11:50] LABS: ANISOCYTOSIS 1+; MACROCYTOSIS 1+; OVALOCYTE 1+; PLATELET ESTIMATE DECREASED
[2018-11-06] MEDS: MUPIROCIN 2% TOPICAL OINTMENT FOR DECOLONIZATION NS SCH ×2 (12:08→22:17)
--- NOTE | 2018-11-06 12:47 | PN ---
Progress Note, Physician History of Present Illness: on bipap - Current Medication List Current Medications: Active Medications Alprazolam (Xanax -) 0.5 mg PO Q12H PRN PRN Reason: ANXIETY Last Admin: 11/05/18 22:20 Dose: 0.5 mg Apixaban (Eliquis -) 2.5 mg PO BID [facility] Last Admin: 11/06/18 11:10 Dose: 2.5 mg Atenolol (Tenormin -) 50 mg PO DAILY [facility] Last Admin: 11/06/18 11:10 Dose: 50 mg Atorvastatin Calcium (Lipitor -) 40 mg PO HS [facility] Last Admin: 11/05/18 22:21 Dose: 40 mg Chlorhexidine Gluconate (Hibiclens For Decolonization -) 1 applic TP HS [facility] Last Admin: 11/05/18 22:36 Dose: 1 applic Escitalopram Oxalate (Lexapro -) 10 mg PO DAILY [facility] Last Admin: 11/06/18 11:09 Dose: 10 mg Piperacillin Sod/Tazobactam (Sod 2.25 gm/ Dextrose) 50 mls @ 100 mls/hr IVPB Q8H-IV [facility]; Protocol Last Admin: 11/06/18 11:09 Dose: 100 mls/hr Sodium Chloride (Normal Saline -) 250 mls @ 3,000 mls/hr IV PRN PRN PRN Reason: Hypotension during Dialysis Stop: 11/06/18 12:48 Mupirocin (Bactroban Ointment (For Decolonization) -) 1 applic NS BID [facility] Stop: 11/07/18 21:59 Last Admin: 11/06/18 12:08 Dose: Not Given Sevelamer Carbonate (Renvela -) 800 mg PO TIDCM [facility] Last Admin: 11/06/18 12:08 Dose: Not Given Silver Sulfadiazine (Silvadene -) 1 applic TP DAILY [facility] Last Admin: 11/06/18 11:00 Dose: 1 applic Trazodone HCl (Desyrel -) 50 mg PO HS [facility] Last Admin: 11/05/18 22:21 Dose: 50 mg - Objective Vital Signs: Vital Signs Temperature 97.6 F 11/06/18 10:00 Pulse Rate 101 H 11/06/18 10:02 Respiratory Rate 16 11/06/18 10:02 Blood Pressure 117/68 11/06/18 10:02 O2 Sat by Pulse Oximetry (%) 97 11/06/18 12:06 HENT: Yes: Atraumatic Neck: Yes: Supple Cardiovascular: Yes: Regular Rate and Rhythm Respiratory: Yes: Rhonchi, Wheezes Gastrointestinal: Yes: Normal Bowel Sounds Extremities: Yes: WNL Neurological: Yes: Alert, Oriented Labs: CBC, BMP 11/06/18 05:30 11/06/18 05:30 INR, PTT INR 1.23 (0.83-1.09) H 11/03/18 05:30 Problem List - Problems (1) ESRD needing dialysis Assessment/Plan: on hd renal on board Code(s): N18.6 - END STAGE RENAL DISEASE; Z99.2 - DEPENDENCE ON RENAL DIALYSIS (2) HTN (hypertension) Assessment/Plan: monitor continue meds Code(s): I10 - ESSENTIAL (PRIMARY) HYPERTENSION Qualifiers: Hypertension type: essential hypertension Qualified Code(s): I10 - Essential (primary) hypertension (3) Peripheral arterial disease Assessment/Plan: dr mauricio castano saw patient Code(s): I73.9 - PERIPHERAL VASCULAR DISEASE, UNSPECIFIED (4) Sepsis Assessment/Plan: abx per id cxs negative to date Code(s): A41.9 - SEPSIS, UNSPECIFIED ORGANISM Qualifiers: Sepsis type: sepsis due to unspecified organism Qualified Code(s): A41.9 - Sepsis, unspecified organism (5) Atrial fibrillation with RVR Code(s): I48.91 - UNSPECIFIED ATRIAL FIBRILLATION (6) ESRD (end stage renal disease) Assessment/Plan: on hd will call renal Code(s): N18.6 - END STAGE RENAL DISEASE (7) Respiratory distress Assessment/Plan: on bipap Code(s): R06.03 - ACUTE RESPIRATORY DISTRESS Assessment/Plan cc time 35 min
--- NOTE | 2018-11-06 15:26 | PN ---
Progress Note, Physician History of Present Illness: patient still with resp difficulty continues to need bipap mentally still a bit confused - Current Medication List Current Medications: Active Medications Alprazolam (Xanax -) 0.5 mg PO Q12H PRN PRN Reason: ANXIETY Last Admin: 11/05/18 22:20 Dose: 0.5 mg Apixaban (Eliquis -) 2.5 mg PO BID [facility] Last Admin: 11/06/18 11:10 Dose: 2.5 mg Atenolol (Tenormin -) 50 mg PO DAILY [facility] Last Admin: 11/06/18 11:10 Dose: 50 mg Atorvastatin Calcium (Lipitor -) 40 mg PO [facility] Last Admin: 11/05/18 22:21 Dose: 40 mg Chlorhexidine Gluconate (Hibiclens For Decolonization -) 1 applic TP HS [facility] Last Admin: 11/05/18 22:36 Dose: 1 applic Escitalopram Oxalate (Lexapro -) 10 mg PO DAILY [facility] Last Admin: 11/06/18 11:09 Dose: 10 mg Piperacillin Sod/Tazobactam (Sod 2.25 gm/ Dextrose) 50 mls @ 100 mls/hr IVPB Q8H-IV [facility]; Protocol Last Admin: 11/06/18 11:09 Dose: 100 mls/hr Mupirocin (Bactroban Ointment (For Decolonization) -) 1 applic NS BID [facility] Stop: 11/07/18 21:59 Last Admin: 11/06/18 12:08 Dose: Not Given Sevelamer Carbonate (Renvela -) 800 mg PO TIDCM [facility] Last Admin: 11/06/18 12:08 Dose: Not Given Silver Sulfadiazine (Silvadene -) 1 applic TP DAILY [facility] Last Admin: 11/06/18 11:00 Dose: 1 applic Trazodone HCl (Desyrel -) 50 mg PO [facility] Last Admin: 11/05/18 22:21 Dose: 50 mg - Objective Vital Signs: Vital Signs Temperature 97.6 F 11/06/18 10:00 Pulse Rate 94 H 11/06/18 12:00 Respiratory Rate 21 H 11/06/18 12:00 Blood Pressure 90/55 L 11/06/18 12:00 O2 Sat by Pulse Oximetry (%) 97 11/06/18 12:06 Constitutional: Yes: Other (restless) Cardiovascular: Yes: Regular Rate and Rhythm Respiratory: Yes: On BiPap, Poor Air Entry Gastrointestinal: Yes: Normal Bowel Sounds, Soft Musculoskeletal: Yes: WNL Extremities: Yes: WNL Neurological: Yes: Alert, Other Psychiatric: Yes: Other Labs: CBC, BMP 11/06/18 05:30 11/06/18 05:30 INR, PTT INR 1.23 (0.83-1.09) H 11/03/18 05:30 Assessment/Plan Acute on Chronic Hypoxic and Hypercapneic Respiratory Failure Volume Overload Acute on Chronic Diastolic Heart Failure Elevated LFTs suspect congestive hepatopathy r/o Pneumonia r/o UTI ESRD on HD PAD/Gangrene Atrial Fibrillation Thrombocytopenia dry gangrene left foot plan aspiration precautions resp support continue empiric abx if patient looks better will consider stopping abx tomorrow wound care rest as per icu monitor mental status cc 40 min
--- NOTE | 2018-11-06 16:48 | PN ---
Progress Note (short form) - Note Progress Note: PULM/CCM Patient seen and examined in the ICU. Remains on NIPPV support, demented, cyanotic extremities, pt present end of life. Active Medications Alprazolam (Xanax -) 0.5 mg PO Q12H PRN PRN Reason: ANXIETY Last Admin: 11/05/18 22:20 Dose: 0.5 mg Apixaban (Eliquis -) 2.5 mg PO BID [facility] Last Admin: 11/06/18 11:10 Dose: 2.5 mg Atenolol (Tenormin -) 50 mg PO DAILY [facility] Last Admin: 11/06/18 11:10 Dose: 50 mg Atorvastatin Calcium (Lipitor -) 40 mg PO HS [facility] Last Admin: 11/05/18 22:21 Dose: 40 mg Chlorhexidine Gluconate (Hibiclens For Decolonization -) 1 applic TP HS [facility] Last Admin: 11/05/18 22:36 Dose: 1 applic Escitalopram Oxalate (Lexapro -) 10 mg PO DAILY [facility] Last Admin: 11/06/18 11:09 Dose: 10 mg Piperacillin Sod/Tazobactam (Sod 2.25 gm/ Dextrose) 50 mls @ 100 mls/hr IVPB Q8H-IV [facility]; Protocol Last Admin: 11/06/18 11:09 Dose: 100 mls/hr Mupirocin (Bactroban Ointment (For Decolonization) -) 1 applic NS BID [facility] Stop: 11/07/18 21:59 Last Admin: 11/06/18 12:08 Dose: Not Given Sevelamer Carbonate (Renvela -) 800 mg PO TIDCM [facility] Last Admin: 11/06/18 12:08 Dose: Not Given Silver Sulfadiazine (Silvadene -) 1 applic TP DAILY [facility] Last Admin: 11/06/18 11:00 Dose: 1 applic Trazodone HCl (Desyrel -) 50 mg PO HS [facility] Last Admin: 11/05/18 22:21 Dose: 50 mg Vital Signs Period Temp Pulse Resp BP Sys/Medina Pulse Ox Last 24 Hr 97.6 F 90-106 13-22 90-128/50-110 97-97 Intake & Output 11/03/18 11/04/18 11/05/18 11/06/18 23:59 23:59 23:59 23:59 Intake Total 150 360 210 50 Balance 150 360 210 50 Weight 84.878 kg 84.822 kg Gen: Eldelry man, confused, on NIPPV support HEENT: notice sig linda-orbital edema, PERRL, an-icteric PULM Bibasilar rales decreased breath sounds at the bases CV: nml S1 S2, RR ABD: soft, nontender EXT: no edema, cyanotic extrems c/w end of life CBC, BMP 11/06/18 05:30 11/06/18 05:30 INR, PTT INR 1.23 (0.83-1.09) H 11/03/18 05:30 ABG Results ABG pH 7.26 (7.35-7.45) L 11/04/18 11:00 ABG pCO2 at Pt Temp 51.2 mmHg (35-45) H 11/04/18 11:00 ABG pO2 at Pt Temp 130 mmHg (80-105) H 11/04/18 11:00 ABG HCO3 22.4 mmol/L (22-27) 11/04/18 11:00 ABG O2 Sat (Measured) 97.8 % (95-98) 11/04/18 11:00 ABG O2 Content 16.7 % vol (15-22) 11/04/18 11:00 ABG Base Excess -4.4 meq/l (-2-2) L 11/04/18 11:00 Microbiology 11/01/18 14:45 Blood - Peripheral Venous Blood Culture - Final NO GROWTH AFTER 5 DAYS INCUBATION 11/01/18 14:45 Blood - Peripheral Venous Blood Culture - Final NO GROWTH AFTER 5 DAYS INCUBATION 11/01/18 19:40 Urine - Urine - Catheterized Urine Culture - Final NO GROWTH OBTAINED CXR 11/05: A single view the chest is submitted. Since the prior study of 11/02/2018 , the right pulmonary pleural changes have increased slightly. There is a large heart, sclerotic, spinal stimulator device and dense retrocardiac area. The 2018 study was less than optimal due to artifact from motion. ASSESS: MSOF Acute on Chronic Hypoxic and Hypercapneic Respiratory Failure Volume Overload Acute on Chronic Diastolic Heart Failure Elevated LFTs suspect congestive hepatopathy r/o Pneumonia r/o UTI ESRD on HD PAD/Gangrene Atrial Fibrillation Thrombocytopenia PLAN: - Adjust NIPPV for optimal ABG - aspiration precautions - HD w/ ultrafiltration TODAY - continue empiric antibiotics - f/u cultures - O2 to keep Spo2 >90% - DVT prophylaxis - Pt presents w/ in End Of Life MSOF - Family meeting is planned for vandana RE: [facility] ICU PULM/CCM [id number]
[2018-11-06] MEDS: traZODone HCL 50 MG TABLET (FP) PO SCH (23:18)
[2018-11-06] MEDS: ALPRAZolam 0.25 MG TABLET PO PRN (23:19)
[2018-11-06] MEDS: ATORVASTATIN CA 40 MG TABLET (FP) PO SCH (23:19)
[2018-11-06] MEDS: CHLORHEXIDINE GLUCONATE 4% CLEANSER FOR DECOLONIZATION TP SCH (23:19)
[2018-11-07] MEDS ORDERED: PIPERACILLIN/TAZOBACTAM 2.25 GM VIAL IVPB ONE ×2 (01:40→09:43)
[2018-11-07] MEDS ORDERED: DEXTROSE 5%-WATER - 50 ML IVPB ONE ×2 (01:42→09:43)
[2018-11-07] MEDS: PIPERACILLIN/TAZOB 2.25 GM 2.25 GM in DEXTROSE 5%-WATER - 50 ML IVPB SCH ×2 (02:25→09:47)
[2018-11-07] MEDS ORDERED: SODIUM CHLORIDE 250 ML IV PRN (09:37)
--- NOTE | 2018-11-07 09:37 | PN ---
Progress Note (short form) - Note Progress Note: Renal follow up for ESRD Pt seen and examined in the ICU on facemask O2 less confused this am s/p isolated UF yesterday with 2L removed no overnight events, was on BIPAP Vital Signs Temperature 97.6 F 11/06/18 21:15 Pulse Rate 94 H 11/06/18 22:00 Respiratory Rate 25 H 11/06/18 22:00 Blood Pressure 106/60 11/06/18 22:00 O2 Sat by Pulse Oximetry (%) 99 11/06/18 21:00 Intake & Output 11/04/18 11/05/18 11/06/18 11/07/18 23:59 23:59 23:59 23:59 Intake Total 360 210 100 Balance 360 210 100 Weight 84.822 kg Awake on BIPAP neck supple, no JVD irregular, no M/R Dec BS, no overt rales + abd distension, no tenderness No LE edema, + UE and LE cyanosis right arm AVF CBC, BMP 11/06/18 05:30 11/06/18 05:30 Current Medications Alprazolam (Xanax -) 0.5 mg PO Q12H PRN PRN Reason: ANXIETY Last Admin: 11/06/18 23:19 Dose: 0.5 mg Apixaban (Eliquis -) 2.5 mg PO BID [facility] Last Admin: 11/06/18 23:18 Dose: 2.5 mg Atenolol (Tenormin -) 50 mg PO DAILY [facility] Last Admin: 11/06/18 11:10 Dose: 50 mg Atorvastatin Calcium (Lipitor -) 40 mg PO HS [facility] Last Admin: 11/06/18 23:19 Dose: 40 mg Chlorhexidine Gluconate (Hibiclens For Decolonization -) 1 applic TP HS [facility] Last Admin: 11/06/18 23:19 Dose: 1 applic Escitalopram Oxalate (Lexapro -) 10 mg PO DAILY [facility] Last Admin: 11/06/18 11:09 Dose: 10 mg Piperacillin Sod/Tazobactam (Sod 2.25 gm/ Dextrose) 50 mls @ 100 mls/hr IVPB Q8H-IV [facility]; Protocol Last Admin: 11/07/18 02:25 Dose: 100 mls/hr Mupirocin (Bactroban Ointment (For Decolonization) -) 1 applic NS BID [facility] Stop: 11/07/18 21:59 Last Admin: 11/06/18 22:17 Dose: 1 applic Sevelamer Carbonate (Renvela -) 800 mg PO TIDCM [facility] Last Admin: 11/06/18 17:25 Dose: Not Given Silver Sulfadiazine (Silvadene -) 1 applic TP DAILY [facility] Last Admin: 11/06/18 11:00 Dose: 1 applic Trazodone HCl (Desyrel -) 50 mg PO HS [facility] Last Admin: 11/06/18 23:18 Dose: 50 mg 78 year old gentleman with hx of ESRD on HD, Colon Ca s/p resection, Afib, PVD, Dementia with recent hospital admission at [facility] for foot gangrene and PVD now presented from HD unit with AMS and hypotension. #ESRD on HD #Fluid overload with respiratory failure on BIPAP #CHF/Diastolic HF #PVD/LE gangrene #Thrombocytopenia #Anemia #Hyponatremia s/p isolated UF yesterday, tolerated it well. no acute need for [employer] today will plan HD with aggressive UF tomorrow in AM continue fluid restriction Supplamental O2 and BIPAP as needed ICU monitoring goals of care discussion to be had today as per ICU Thank you Armen Machado DO
[2018-11-07] MEDS: SEVELAMER CARBONATE 800 MG TAB (FP) PO SCH ×3 (09:48→17:21)
[2018-11-07] MEDS: ESCITALOPRAM OXALATE 10 MG TABLET (FP) PO SCH (09:48)
[2018-11-07] MEDS: APIXABAN 2.5 MG TABLET PO SCH ×2 (09:49→21:12)
[2018-11-07] MEDS: ATENOLOL 50 MG TABLET (FP) PO SCH (09:49)
[2018-11-07] MEDS: SILVER SULFADIAZINE 1% TOP CREAM 50 GM JAR TP SCH (10:18)
[2018-11-07] MEDS: MUPIROCIN 2% TOPICAL OINTMENT FOR DECOLONIZATION NS SCH (11:53)
--- NOTE | 2018-11-07 12:08 | PN ---
Progress Note (short form) - Note Progress Note: PULM/CCM Patient seen and examined in the ICU. Much more awake today. Following simple commands. Knows he is in the hospital. Denies any pain. Active Medications Albumin Human (Albumin Human 25%) 12.5 gm IVPB Q30M [facility] Alprazolam (Xanax -) 0.5 mg PO Q12H PRN PRN Reason: ANXIETY Last Admin: 11/06/18 23:19 Dose: 0.5 mg Apixaban (Eliquis -) 2.5 mg PO BID [facility] Last Admin: 11/07/18 09:49 Dose: 2.5 mg Atenolol (Tenormin -) 50 mg PO DAILY [facility] Last Admin: 11/07/18 09:49 Dose: Not Given Atorvastatin Calcium (Lipitor -) 40 mg PO HS [facility] Last Admin: 11/06/18 23:19 Dose: 40 mg Chlorhexidine Gluconate (Hibiclens For Decolonization -) 1 applic TP HS [facility] Last Admin: 11/06/18 23:19 Dose: 1 applic Escitalopram Oxalate (Lexapro -) 10 mg PO DAILY [facility] Last Admin: 11/07/18 09:48 Dose: 10 mg Piperacillin Sod/Tazobactam (Sod 2.25 gm/ Dextrose) 50 mls @ 100 mls/hr IVPB Q8H-IV [facility]; Protocol Last Admin: 11/07/18 09:47 Dose: 100 mls/hr Sodium Chloride (Normal Saline -) 250 mls @ 3,000 mls/hr IV PRN PRN PRN Reason: Hypotension during Dialysis Stop: 11/08/18 09:37 Mupirocin (Bactroban Ointment (For Decolonization) -) 1 applic NS BID [facility] Stop: 11/07/18 21:59 Last Admin: 11/06/18 22:17 Dose: 1 applic Sevelamer Carbonate (Renvela -) 800 mg PO TIDCM [facility] Last Admin: 11/07/18 09:48 Dose: 800 mg Silver Sulfadiazine (Silvadene -) 1 applic TP DAILY [facility] Last Admin: 11/07/18 10:18 Dose: 1 applic Trazodone HCl (Desyrel -) 50 mg PO HS [facility] Last Admin: 11/06/18 23:18 Dose: 50 mg Vital Signs Period Temp Pulse Resp BP Sys/Medina Pulse Ox Last 24 Hr 97.6 F-97.6 F 92-102 18-25 84-121/55-64 91-100 Intake & Output 11/04/18 11/05/18 11/06/18 11/07/18 23:59 23:59 23:59 23:59 Intake Total 360 210 100 Balance 360 210 100 Weight 84.822 kg Gen: Eldelry man, CA & Confused but directable HEENT: notice sig linda-orbital edema, PERRL, an-icteric PULM Bibasilar rales decreased breath sounds at the bases CV: nml S1 S2, RR ABD: soft, nontender EXT: no edema, persistent cyanosis at the periphery CBC, BMP 11/06/18 05:30 11/06/18 05:30 Microbiology 11/01/18 14:45 Blood - Peripheral Venous Blood Culture - Final NO GROWTH AFTER 5 DAYS INCUBATION 11/01/18 14:45 Blood - Peripheral Venous Blood Culture - Final NO GROWTH AFTER 5 DAYS INCUBATION 11/01/18 19:40 Urine - Urine - Catheterized Urine Culture - Final NO GROWTH OBTAINED CXR 11/05: A single view the chest is submitted. Since the prior study of 11/02/2018 , the right pulmonary pleural changes have increased slightly. There is a large heart, sclerotic, spinal stimulator device and dense retrocardiac area. The 2018 study was less than optimal due to artifact from motion. ASSESS: MSOF Acute on Chronic Hypoxic and Hypercapneic Respiratory Failure Volume Overload Acute on Chronic Diastolic Heart Failure Elevated LFTs suspect congestive hepatopathy r/o Pneumonia r/o UTI ESRD on HD PAD/Gangrene Atrial Fibrillation Thrombocytopenia PLAN: - Adjust nocturnal NIPPV for optimal ABG - aspiration precautions - HD w/ ultrafiltration TOMORROW - continue empiric antibiotics - f/u cultures - O2 to keep Spo2 >90% - DVT prophylaxis - This is End Of Life - Family meeting is planned again for tonight RE: GOC - Transfer to Med Surg for Cont management & Palliative Care ROX[facility] ICU PULM/CCM [id number]
--- NOTE | 2018-11-07 13:28 | PN ---
Progress Note, Physician History of Present Illness: patient looking much better more awake and alert now off of bipap breathing better - Current Medication List Current Medications: Active Medications Albumin Human (Albumin Human 25%) 12.5 gm IVPB Q30M [facility] Alprazolam (Xanax -) 0.5 mg PO Q12H PRN PRN Reason: ANXIETY Last Admin: 11/06/18 23:19 Dose: 0.5 mg Apixaban (Eliquis -) 2.5 mg PO BID [facility] Last Admin: 11/07/18 09:49 Dose: 2.5 mg Atenolol (Tenormin -) 50 mg PO DAILY [facility] Last Admin: 11/07/18 09:49 Dose: Not Given Atorvastatin Calcium (Lipitor -) 40 mg PO HS [facility] Last Admin: 11/06/18 23:19 Dose: 40 mg Chlorhexidine Gluconate (Hibiclens For Decolonization -) 1 applic TP HS [facility] Last Admin: 11/06/18 23:19 Dose: 1 applic Escitalopram Oxalate (Lexapro -) 10 mg PO DAILY [facility] Last Admin: 11/07/18 09:48 Dose: 10 mg Piperacillin Sod/Tazobactam (Sod 2.25 gm/ Dextrose) 50 mls @ 100 mls/hr IVPB Q8H-IV [facility]; Protocol Last Admin: 11/07/18 09:47 Dose: 100 mls/hr Sodium Chloride (Normal Saline -) 250 mls @ 3,000 mls/hr IV PRN PRN PRN Reason: Hypotension during Dialysis Stop: 11/08/18 09:37 Mupirocin (Bactroban Ointment (For Decolonization) -) 1 applic NS BID [facility] Stop: 11/07/18 21:59 Last Admin: 11/06/18 22:17 Dose: 1 applic Sevelamer Carbonate (Renvela -) 800 mg PO TIDCM [facility] Last Admin: 11/07/18 09:48 Dose: 800 mg Silver Sulfadiazine (Silvadene -) 1 applic TP DAILY [facility] Last Admin: 11/07/18 10:18 Dose: 1 applic Trazodone HCl (Desyrel -) 50 mg PO HS [facility] Last Admin: 11/06/18 23:18 Dose: 50 mg - Objective Vital Signs: Vital Signs Temperature 97.6 F 11/06/18 21:15 Pulse Rate 94 H 11/06/18 22:00 Respiratory Rate 20 11/07/18 09:00 Blood Pressure 106/60 11/06/18 22:00 O2 Sat by Pulse Oximetry (%) 99 11/06/18 21:00 Constitutional: Yes: No Distress, Calm, Other (weak) Cardiovascular: Yes: Regular Rate and Rhythm, S1, S2 Respiratory: Yes: On Nasal O2, Poor Air Entry Gastrointestinal: Yes: Normal Bowel Sounds, Soft Musculoskeletal: Yes: WNL Extremities: Yes: WNL Neurological: Yes: Alert, Oriented Labs: CBC, BMP 11/06/18 05:30 11/06/18 05:30 INR, PTT INR 1.23 (0.83-1.09) H 11/03/18 05:30 - ....Imaging Chest X-ray: Report Reviewed, Image Reviewed Assessment/Plan Acute on Chronic Hypoxic and Hypercapneic Respiratory Failure Volume Overload Acute on Chronic Diastolic Heart Failure Elevated LFTs suspect congestive hepatopathy r/o Pneumonia r/o UTI ESRD on HD PAD/Gangrene Atrial Fibrillation Thrombocytopenia dry gangrene left foot plan will stop abx and watch aspiration precautions resp support wound care rest as per icu monitor mental status cc 35 min
--- NOTE | 2018-11-07 14:20 | PN ---
Progress Note, Physician History of Present Illness: on bipap - Current Medication List Current Medications: Active Medications Albumin Human (Albumin Human 25%) 12.5 gm IVPB Q30M [facility] Alprazolam (Xanax -) 0.5 mg PO Q12H PRN PRN Reason: ANXIETY Last Admin: 11/06/18 23:19 Dose: 0.5 mg Apixaban (Eliquis -) 2.5 mg PO BID [facility] Last Admin: 11/07/18 09:49 Dose: 2.5 mg Atenolol (Tenormin -) 50 mg PO DAILY [facility] Last Admin: 11/07/18 09:49 Dose: Not Given Atorvastatin Calcium (Lipitor -) 40 mg PO HS [facility] Last Admin: 11/06/18 23:19 Dose: 40 mg Chlorhexidine Gluconate (Hibiclens For Decolonization -) 1 applic TP HS [facility] Last Admin: 11/06/18 23:19 Dose: 1 applic Escitalopram Oxalate (Lexapro -) 10 mg PO DAILY [facility] Last Admin: 11/07/18 09:48 Dose: 10 mg Sodium Chloride (Normal Saline -) 250 mls @ 3,000 mls/hr IV PRN PRN PRN Reason: Hypotension during Dialysis Stop: 11/08/18 09:37 Mupirocin (Bactroban Ointment (For Decolonization) -) 1 applic NS BID [facility] Stop: 11/07/18 21:59 Last Admin: 11/06/18 22:17 Dose: 1 applic Sevelamer Carbonate (Renvela -) 800 mg PO TIDCM [facility] Last Admin: 11/07/18 09:48 Dose: 800 mg Silver Sulfadiazine (Silvadene -) 1 applic TP DAILY [facility] Last Admin: 11/07/18 10:18 Dose: 1 applic Trazodone HCl (Desyrel -) 50 mg PO HS [facility] Last Admin: 11/06/18 23:18 Dose: 50 mg - Objective Vital Signs: Vital Signs Temperature 97.6 F 11/06/18 21:15 Pulse Rate 94 H 11/06/18 22:00 Respiratory Rate 20 11/07/18 09:00 Blood Pressure 106/60 11/06/18 22:00 O2 Sat by Pulse Oximetry (%) 99 11/06/18 21:00 Constitutional: Yes: Calm HENT: Yes: Atraumatic Neck: Yes: Supple Cardiovascular: Yes: Regular Rate and Rhythm Respiratory: Yes: Rhonchi Gastrointestinal: Yes: Normal Bowel Sounds Extremities: Yes: WNL Edema: No Neurological: Yes: Alert, Oriented Labs: CBC, BMP 11/06/18 05:30 11/06/18 05:30 INR, PTT INR 1.23 (0.83-1.09) H 11/03/18 05:30 Problem List - Problems (1) ESRD needing dialysis Assessment/Plan: on hd renal on board Code(s): N18.6 - END STAGE RENAL DISEASE; Z99.2 - DEPENDENCE ON RENAL DIALYSIS (2) HTN (hypertension) Assessment/Plan: monitor continue meds Code(s): I10 - ESSENTIAL (PRIMARY) HYPERTENSION Qualifiers: Qualified Code(s): I10 - Essential (primary) hypertension (3) Peripheral arterial disease Assessment/Plan: dr mauricio castano saw patient Code(s): I73.9 - PERIPHERAL VASCULAR DISEASE, UNSPECIFIED (4) Sepsis Assessment/Plan: abx per id cxs negative to date Code(s): A41.9 - SEPSIS, UNSPECIFIED ORGANISM Qualifiers: Qualified Code(s): A41.9 - Sepsis, unspecified organism (5) Atrial fibrillation with RVR Code(s): I48.91 - UNSPECIFIED ATRIAL FIBRILLATION Assessment/Plan ASSESSMENT Acute on Chronic Hypoxic and Hypercapneic Respiratory Failure Volume Overload Acute on Chronic Diastolic Heart Failure Elevated LFTs suspect congestive hepatopathy r/o Pneumonia r/o UTI ESRD on HD PAD/Gangrene Atrial Fibrillation Thrombocytopenia - VM cc time 35 min
[2018-11-07] MEDS: ALPRAZolam 0.25 MG TABLET PO PRN (15:48)
[2018-11-07] MEDS: CHLORHEXIDINE GLUCONATE 4% CLEANSER FOR DECOLONIZATION TP SCH (21:12)
[2018-11-07] MEDS: traZODone HCL 50 MG TABLET (FP) PO SCH (21:12)
[2018-11-07] MEDS: ATORVASTATIN CA 40 MG TABLET (FP) PO SCH (21:13)
[2018-11-08 07:44] LABS: ANION GAP 15 MMOL/L (8-16); BLOOD UREA NITROGEN 94 mg/dL (7-18); CHLORIDE 101 mmol/L (98-107); CO2 26 mmol/L (21-32); GLUCOSE,RANDOM 76 mg/dL (74-106); POTASSIUM 4.3 mmol/L (3.5-5.1); SODIUM 142 mmol/L (136-145)
--- NOTE | 2018-11-08 08:07 | PN ---
Physical Exam: SUBJECTIVE: Patient seen and examined HD # 7. Events overnight: No acute events overnight. OBJECTIVE: Vital Signs Period Temp Pulse Resp BP Sys/Medina Pulse Ox Last 24 Hr 97.2 F-98.2 F 81-96 12-20 78-111/50-74 GENERAL: The patient is awake, alert, and fully oriented, in no acute distress. HEAD: Normal with no signs of trauma. LUNGS: BiPAP mask in place. Breath sounds equal, decreased breath sounds bilaterally in lower lobes, no crackles, no accessory muscle use. HEART: Irregularly irregular rate and rhythm, S1, S2 without murmur, rub or gallop. ABDOMEN: Soft, nontender, nondistended, EXTREMITIES: 2+ pulses, warm, well-perfused, trace pretibial edema. PSYCH: Normal mood, normal affect. SKIN: Warm and dry Laboratory Results - last 24 hr 11/08/18 05:30 Sodium 142 Potassium 4.3 Chloride 101 Carbon Dioxide 26 Anion Gap 15 BUN 94 H Creat Clearance w eGFR 6.17 Random Glucose 76 Calcium 10.0 Active Medications Generic Name Dose Route Start Last Admin Trade Name Freq PRN Reason Stop Dose Admin Albumin Human 12.5 gm 11/08/18 06:00 Albumin Human 25% IVPB Q30M [facility] Apixaban 2.5 mg 11/04/18 13:00 11/07/18 21:12 Eliquis - PO 2.5 mg BID [facility] Administration Atenolol 50 mg 11/03/18 10:00 11/07/18 09:49 Tenormin - PO Not Given DAILY [facility] Atorvastatin Calcium 40 mg 11/03/18 22:00 11/07/18 21:13 Lipitor - PO 40 mg HS [facility] Administration Chlorhexidine Gluconate 1 applic 11/02/18 22:00 11/07/18 21:12 Hibiclens For Decolonization - TP 1 applic HS [facility] Administration Escitalopram Oxalate 10 mg 11/03/18 10:00 11/07/18 09:48 Lexapro - PO 10 mg DAILY [facility] Administration Sodium Chloride 250 mls @ 3,000 mls/hr 11/07/18 09:37 Normal Saline - IV 11/08/18 09:37 PRN PRN Hypotension during Dialysis Sevelamer Carbonate 800 mg 11/03/18 12:00 11/07/18 17:21 Renvela - PO 800 mg TIDCM [facility] Administration Silver Sulfadiazine 1 applic 11/03/18 16:30 11/07/18 10:18 Silvadene - TP 1 applic DAILY [facility] Administration Trazodone HCl 50 mg 11/03/18 22:00 11/07/18 21:12 Desyrel - PO 50 mg HS [facility] Administration ASSESSMENT/PLAN: ASSESSMENT / PLAN: 78 year old male with h/o of PAD s/p revascularization of tibial arterial disease, HTN, colon CA s/p resection (25 yrs ago), afib, hx of GIB, ESRD (M, W, F), renal osteodystrophy, dementia admitted to the ICU for respiratory distress with cyanosis. Neuro (& Psych): - Consulted Dr. Parrish - Multifactorial encephalopathy, likely both metabolic and infectious - Unremarkable head CT - Depression / Anxiety on Lexapro 10 mg/Trazodone and xanax prn Endocrine: - Consulted Dr. Machado - ESRD (M, W, F) s/p HD w/ ultrafiltration yesterday - Albumin 12.5 Cardiovascular: - HTN on atenolol 50 mg daily - PAD: Revascularization of tibial arteries done two weeks ago at [facility] by Dr. Martinez - Afib w/ RVR on Apixiban - HLD on Atorvastatin 40mg HS. - Acute on Chronic Diastolic Heart Failure with subendocardial ischemic injury Pulm / Resp: - Acute on Chronic Hypoxic and Hypercapnic Respiratory Failure - On BiPap - Aspiration precautions Gastrointestinal: - Elevated LFTs suspect congestive hepatopathy Hematologic: - Thrombocytopenia Infectious Disease: - Consulted Dr. Alfred - Sepsis w/ hypotension and resp failure - Abx stopped yesterday FEN: - Diet Puree - Fluid and Sodium Restriction Prophylaxis: - For DVT: Already on Apixaban Dispo: - Plan to downgrade to Telemetry for Palliative Care w/ pulse oximetry monitoring Visit type - Emergency Visit Emergency Visit: No - New Patient This patient is new to me today: Yes Date on this admission: 11/08/18 - Critical Care Critical Care patient: Yes Total Critical Care Time (in minutes): 40 Critical Care Statement: The care of this patient involved high complexity decision making to prevent further life threatening deterioration of the patient 's condition and/or to evaluate & treat vital organ system(s) failure or risk of failure.
[2018-11-08 08:47] LABS: CREATININE 8.4 mg/dL (0.55-1.3)
[2018-11-08 09:17] LABS: CHOLESTEROL 84 mg/dL (50-200); HDL CHOLESTEROL 36 mg/dL (40-60); TRIGLYCERIDES 106 mg/dL (0-150)
[2018-11-08] MEDS: SEVELAMER CARBONATE 800 MG TAB (FP) PO SCH ×3 (11:15→18:20)
[2018-11-08] MEDS: APIXABAN 2.5 MG TABLET PO SCH ×2 (11:16→21:40)
[2018-11-08] MEDS: ATENOLOL 50 MG TABLET (FP) PO SCH (11:16)
[2018-11-08] MEDS: ESCITALOPRAM OXALATE 10 MG TABLET (FP) PO SCH (11:16)
[2018-11-08] MEDS: SILVER SULFADIAZINE 1% TOP CREAM 50 GM JAR TP SCH (11:17)
--- NOTE | 2018-11-08 11:35 | PN ---
Progress Note, Physician Chief Complaint: Events noted On NIPPV History of Present Illness: Patient was seen and examined. Awake and alert. Chart was reviewed Denies chest pain or palpitations Dyspnea on BIPAP - Current Medication List Current Medications: Active Medications Albumin Human (Albumin Human 25%) 12.5 gm IVPB Q30M [facility] Apixaban (Eliquis -) 2.5 mg PO BID [facility] Last Admin: 11/08/18 11:16 Dose: 2.5 mg Atenolol (Tenormin -) 50 mg PO DAILY [facility] Last Admin: 11/08/18 11:16 Dose: 50 mg Atorvastatin Calcium (Lipitor -) 40 mg PO [facility] Last Admin: 11/07/18 21:13 Dose: 40 mg Chlorhexidine Gluconate (Hibiclens For Decolonization -) 1 applic TP [facility] Last Admin: 11/07/18 21:12 Dose: 1 applic Escitalopram Oxalate (Lexapro -) 10 mg PO DAILY [facility] Last Admin: 11/08/18 11:16 Dose: 10 mg Sodium Chloride (Normal Saline -) 250 mls @ 3,000 mls/hr IV PRN PRN PRN Reason: Hypotension during Dialysis Stop: 11/08/18 09:37 Sevelamer Carbonate (Renvela -) 800 mg PO TIDCM [facility] Last Admin: 11/08/18 11:16 Dose: Not Given Silver Sulfadiazine (Silvadene -) 1 applic TP DAILY [facility] Last Admin: 11/08/18 11:17 Dose: 1 applic Trazodone HCl (Desyrel -) 50 mg PO [facility] Last Admin: 11/07/18 21:12 Dose: 50 mg - Objective Vital Signs: Vital Signs Temperature 97.5 F L 11/08/18 10:00 Pulse Rate 85 11/08/18 10:00 Respiratory Rate 18 11/08/18 10:00 Blood Pressure 94/60 11/08/18 10:00 O2 Sat by Pulse Oximetry (%) 95 11/08/18 08:50 Neck: Yes: Supple Cardiovascular: Yes: Pulse Irregular, S1, S2 Respiratory: Yes: On BiPap, SOB Gastrointestinal: Yes: Normal Bowel Sounds, Soft. No: Tenderness Edema: No Labs: CBC, BMP 11/06/18 05:30 11/08/18 05:30 Problem List - Problems (1) Acute on chronic diastolic CHF (congestive heart failure) Code(s): I50.33 - ACUTE ON CHRONIC DIASTOLIC (CONGESTIVE) HEART FAILURE (2) ESRD needing dialysis Code(s): N18.6 - END STAGE RENAL DISEASE; Z99.2 - DEPENDENCE ON RENAL DIALYSIS (3) Encephalopathy Code(s): G93.40 - ENCEPHALOPATHY, UNSPECIFIED (4) HTN (hypertension) Code(s): I10 - ESSENTIAL (PRIMARY) HYPERTENSION Qualifiers: Hypertension type: essential hypertension Qualified Code(s): I10 - Essential (primary) hypertension (5) Peripheral arterial disease Code(s): I73.9 - PERIPHERAL VASCULAR DISEASE, UNSPECIFIED (6) Respiratory distress Code(s): R06.03 - ACUTE RESPIRATORY DISTRESS (7) Sepsis Code(s): A41.9 - SEPSIS, UNSPECIFIED ORGANISM Qualifiers: Sepsis type: sepsis due to unspecified organism Qualified Code(s): A41.9 - Sepsis, unspecified organism (8) Anemia Code(s): D64.9 - ANEMIA, UNSPECIFIED Qualifiers: Anemia type: other cause Other causes of anemia: acute posthemorrhagic Qualified Code(s): D62 - Acute posthemorrhagic anemia (9) Atrial fibrillation with RVR Code(s): I48.91 - UNSPECIFIED ATRIAL FIBRILLATION Assessment/Plan 1. Acute on Chronic Hypoxic and Hypercapneic Respiratory Failure 2. Acute on Chronic Diastolic Heart Failure with subendocardial ischemic injury 3. Elevated LFTs suspect congestive hepatopathy 4. Toxic metabolic encephelopathy with underlying dementia 5. ESRD on HD 6. PAD/Gangrene s/p [employer] 7. Atrial Fibrillation 8. Thrombocytopenia PLAN: 1. HD per renal with ultrafiltration 2. BIPAP 3. Follow LFT and cardiac enzymes 4. Eliquis 2.5 mg BID, Atenolol 50 mg QD and Liptor 40 mg QHS. Consider ARB as hemodynamics tolerate Further plans are to follow Jacky Gonsalves MD
--- NOTE | 2018-11-08 11:47 | PN ---
Teaching Attending Note Name of Resident: Elia Canchola ATTENDING PHYSICIAN STATEMENT I saw and evaluated the patient. I reviewed the resident's note and discussed the case with the resident. I agree with the resident's findings and plan as documented. SUBJECTIVE: Patient seen and examined in the ICU. NIPPV support overnight. Now on VM O2. Reports feeling overall better. Still with some congested cough. Intake & Output 11/05/18 11/06/18 11/07/18 11/08/18 23:59 23:59 23:59 23:59 Intake Total 210 100 170 Balance 210 100 170 Weight 166 lb 14.4 oz Last Vital Signs Temp Pulse Resp BP Pulse Ox 97.5 F L 85 18 94/60 96 11/08/18 10:00 11/08/18 10:00 11/08/18 10:00 11/08/18 10:00 11/08/18 11:47 Active Medications Albumin Human (Albumin Human 25%) 12.5 gm IVPB Q30M [facility] Apixaban (Eliquis -) 2.5 mg PO BID [facility] Last Admin: 11/08/18 11:16 Dose: 2.5 mg Atenolol (Tenormin -) 50 mg PO DAILY [facility] Last Admin: 11/08/18 11:16 Dose: 50 mg Atorvastatin Calcium (Lipitor -) 40 mg PO [facility] Last Admin: 11/07/18 21:13 Dose: 40 mg Chlorhexidine Gluconate (Hibiclens For Decolonization -) 1 applic TP [facility] Last Admin: 11/07/18 21:12 Dose: 1 applic Escitalopram Oxalate (Lexapro -) 10 mg PO DAILY [facility] Last Admin: 11/08/18 11:16 Dose: 10 mg Sodium Chloride (Normal Saline -) 250 mls @ 3,000 mls/hr IV PRN PRN PRN Reason: Hypotension during Dialysis Stop: 11/08/18 09:37 Sevelamer Carbonate (Renvela -) 800 mg PO TIDCM [facility] Last Admin: 11/08/18 11:16 Dose: Not Given Silver Sulfadiazine (Silvadene -) 1 applic TP DAILY [facility] Last Admin: 11/08/18 11:17 Dose: 1 applic Trazodone HCl (Desyrel -) 50 mg PO [facility] Last Admin: 11/07/18 21:12 Dose: 50 mg Gen: Awake and responsive on VM O2 Heart: RRR Lung: Bibasilar rales and rhonchi Abd: soft, nontender Ext: no edema, cyanotic fingers slightly improved Laboratory Results - last 24 hr 11/08/18 05:30 Sodium 142 Potassium 4.3 Chloride 101 Carbon Dioxide 26 Anion Gap 15 BUN 94 H Creatinine 8.4 H* Creat Clearance w eGFR 6.17 Random Glucose 76 Calcium 10.0 Triglycerides 106 Cholesterol 84 Total LDL Cholesterol 34 HDL Cholesterol 36 L TSH 5.08 H ASSESSMENT AND PLAN: Acute on Chronic Hypoxic and Hypercapneic Respiratory Failure Volume Overload Acute on Chronic Diastolic Heart Failure Elevated LFTs suspect congestive hepatopathy r/o Pneumonia r/o UTI ESRD on HD PAD/Gangrene Atrial Fibrillation Thrombocytopenia - VM O2 as tolerated - NIPPV support QHS and PRN - HD per renal with ultrafiltration - Currently off ABX - O2 to keep Spo2 88% to 92% - aspiration precautions - DVT prophylaxis - 4W / 4S monitoring for oximetry Dr Das
--- NOTE | 2018-11-08 11:49 | PN ---
Progress Note (short form) - Note Progress Note: Renal follow up for ESRD Pt seen and examined in the ICU awake and alert complains of pain in his foot no sob, cp, abd pain on NC O2 Vital Signs Temperature 97.5 F L 11/08/18 10:00 Pulse Rate 85 11/08/18 10:00 Respiratory Rate 18 11/08/18 10:00 Blood Pressure 94/60 11/08/18 10:00 O2 Sat by Pulse Oximetry (%) 95 11/08/18 08:50 Intake & Output 11/05/18 11/06/18 11/07/18 11/08/18 23:59 23:59 23:59 23:59 Intake Total 210 100 170 Balance 210 100 170 Weight 75.705 kg NAD irregular, no M/R Dec BS, no overt rales No LE edema, + UE and LE cyanosis (improved) CBC, BMP 11/06/18 05:30 11/08/18 05:30 Current Medications Albumin Human (Albumin Human 25%) 12.5 gm IVPB Q30M [facility] Apixaban (Eliquis -) 2.5 mg PO BID [facility] Last Admin: 11/08/18 11:16 Dose: 2.5 mg Atenolol (Tenormin -) 50 mg PO DAILY [facility] Last Admin: 11/08/18 11:16 Dose: 50 mg Atorvastatin Calcium (Lipitor -) 40 mg PO [facility] Last Admin: 11/07/18 21:13 Dose: 40 mg Chlorhexidine Gluconate (Hibiclens For Decolonization -) 1 applic TP [facility] Last Admin: 11/07/18 21:12 Dose: 1 applic Escitalopram Oxalate (Lexapro -) 10 mg PO DAILY [facility] Last Admin: 11/08/18 11:16 Dose: 10 mg Sodium Chloride (Normal Saline -) 250 mls @ 3,000 mls/hr IV PRN PRN PRN Reason: Hypotension during Dialysis Stop: 11/08/18 09:37 Sevelamer Carbonate (Renvela -) 800 mg PO TIDCM [facility] Last Admin: 11/08/18 11:16 Dose: Not Given Silver Sulfadiazine (Silvadene -) 1 applic TP DAILY [facility] Last Admin: 11/08/18 11:17 Dose: 1 applic Trazodone HCl (Desyrel -) 50 mg PO [facility] Last Admin: 11/07/18 21:12 Dose: 50 mg 78 year old gentleman with hx of ESRD on HD, Colon Ca s/p resection, Afib, PVD, Dementia with recent hospital admission at [facility] for foot gangrene and PVD now presented from HD unit with AMS and hypotension. #ESRD on HD #Fluid overload with respiratory failure #CHF/Diastolic HF #PVD/LE gangrene #Thrombocytopenia #Anemia #Hyponatremia Clinically improved. for HD with UF today continue supplemental O2 as needed continue fluid and Na restriction ICU care Dose all meds for intermittent HD Thank you Armen Machado DO
[2018-11-08] MEDS: ALBUMIN HUMAN 25% 12.5 GM/50 ML VIAL IVPB SCH ×4 (12:15→14:35)
--- NOTE | 2018-11-08 15:24 | PN ---
Progress Note, Physician History of Present Illness: patient stable needing bipap being dialysed comfortable - Current Medication List Current Medications: Active Medications Apixaban (Eliquis -) 2.5 mg PO BID [facility] Last Admin: 11/08/18 11:16 Dose: 2.5 mg Atenolol (Tenormin -) 50 mg PO DAILY [facility] Last Admin: 11/08/18 11:16 Dose: 50 mg Atorvastatin Calcium (Lipitor -) 40 mg PO [facility] Last Admin: 11/07/18 21:13 Dose: 40 mg Chlorhexidine Gluconate (Hibiclens For Decolonization -) 1 applic TP HS [facility] Last Admin: 11/07/18 21:12 Dose: 1 applic Escitalopram Oxalate (Lexapro -) 10 mg PO DAILY [facility] Last Admin: 11/08/18 11:16 Dose: 10 mg Sevelamer Carbonate (Renvela -) 800 mg PO TIDCM [facility] Last Admin: 11/08/18 11:16 Dose: Not Given Silver Sulfadiazine (Silvadene -) 1 applic TP DAILY [facility] Last Admin: 11/08/18 11:17 Dose: 1 applic Trazodone HCl (Desyrel -) 50 mg PO [facility] Last Admin: 11/07/18 21:12 Dose: 50 mg - Objective Vital Signs: Vital Signs Temperature 97.7 F 11/08/18 11:30 Pulse Rate 96 H 11/08/18 14:05 Respiratory Rate 14 11/08/18 14:05 Blood Pressure 99/73 11/08/18 14:05 O2 Sat by Pulse Oximetry (%) 95 11/08/18 14:35 Constitutional: Yes: No Distress, Calm Cardiovascular: Yes: S1, S2 Respiratory: Yes: Regular, On BiPap Gastrointestinal: Yes: Normal Bowel Sounds, Soft Musculoskeletal: Yes: WNL Extremities: Yes: Other Edema: LLE: 1+, RLE: 1+ Neurological: Yes: Alert, Oriented Psychiatric: Yes: Alert, Oriented Labs: CBC, BMP 11/06/18 05:30 11/08/18 05:30 INR, PTT INR 1.23 (0.83-1.09) H 11/03/18 05:30 Assessment/Plan Acute on Chronic Hypoxic and Hypercapneic Respiratory Failure Volume Overload Acute on Chronic Diastolic Heart Failure Elevated LFTs suspect congestive hepatopathy r/o Pneumonia r/o UTI ESRD on HD PAD/Gangrene Atrial Fibrillation Thrombocytopenia dry gangrene left foot plan stable off of abx resp support dialysis close watch rest as per the team
--- NOTE | 2018-11-08 17:31 | PN ---
Progress Note, Physician History of Present Illness: on bipap - Current Medication List Current Medications: Active Medications Apixaban (Eliquis -) 2.5 mg PO BID [facility] Last Admin: 11/08/18 11:16 Dose: 2.5 mg Atenolol (Tenormin -) 50 mg PO DAILY [facility] Last Admin: 11/08/18 11:16 Dose: 50 mg Atorvastatin Calcium (Lipitor -) 40 mg PO [facility] Last Admin: 11/07/18 21:13 Dose: 40 mg Chlorhexidine Gluconate (Hibiclens For Decolonization -) 1 applic TP HS [facility] Last Admin: 11/07/18 21:12 Dose: 1 applic Escitalopram Oxalate (Lexapro -) 10 mg PO DAILY [facility] Last Admin: 11/08/18 11:16 Dose: 10 mg Sevelamer Carbonate (Renvela -) 800 mg PO TIDCM [facility] Last Admin: 11/08/18 11:16 Dose: Not Given Silver Sulfadiazine (Silvadene -) 1 applic TP DAILY [facility] Last Admin: 11/08/18 11:17 Dose: 1 applic Trazodone HCl (Desyrel -) 50 mg PO [facility] Last Admin: 11/07/18 21:12 Dose: 50 mg - Objective Vital Signs: Vital Signs Temperature 97.7 F 11/08/18 11:30 Pulse Rate 83 11/08/18 16:00 Respiratory Rate 21 H 11/08/18 16:00 Blood Pressure 94/60 11/08/18 16:00 O2 Sat by Pulse Oximetry (%) 96 11/08/18 16:20 Constitutional: Yes: No Distress HENT: Yes: Atraumatic Neck: Yes: Supple Cardiovascular: Yes: Regular Rate and Rhythm Respiratory: Yes: Rhonchi Gastrointestinal: Yes: Normal Bowel Sounds Extremities: Yes: WNL Edema: No Neurological: Yes: Alert, Oriented Labs: CBC, BMP 11/06/18 05:30 11/08/18 05:30 INR, PTT INR 1.23 (0.83-1.09) H 11/03/18 05:30 Problem List - Problems (1) ESRD needing dialysis Assessment/Plan: on hd renal on board Code(s): N18.6 - END STAGE RENAL DISEASE; Z99.2 - DEPENDENCE ON RENAL DIALYSIS (2) HTN (hypertension) Assessment/Plan: monitor continue meds Code(s): I10 - ESSENTIAL (PRIMARY) HYPERTENSION Qualifiers: Qualified Code(s): I10 - Essential (primary) hypertension (3) Peripheral arterial disease Assessment/Plan: dr mauricio castano saw patient Code(s): I73.9 - PERIPHERAL VASCULAR DISEASE, UNSPECIFIED (4) Sepsis Assessment/Plan: abx per id cxs negative to date Code(s): A41.9 - SEPSIS, UNSPECIFIED ORGANISM Qualifiers: Qualified Code(s): A41.9 - Sepsis, unspecified organism (5) Atrial fibrillation with RVR Code(s): I48.91 - UNSPECIFIED ATRIAL FIBRILLATION Assessment/Plan ASSESSMENT Acute on Chronic Hypoxic and Hypercapneic Respiratory Failure Volume Overload Acute on Chronic Diastolic Heart Failure Elevated LFTs suspect congestive hepatopathy r/o Pneumonia r/o UTI ESRD on HD PAD/Gangrene Atrial Fibrillation Thrombocytopenia cc time 35 min
[2018-11-08] MEDS ORDERED: PT OWN MED DRAWER 7, Y5N ONE (20:10)
[2018-11-08] MEDS ORDERED: EPINEPHrine 1:10,000 (P-F SYR) 1 MG/10 ML DISP.SYRIN ONE (21:32)
[2018-11-08] MEDS ORDERED: MAGNESIUM SULF 50% (8.12 MEQ/2 ML-1 GM VIAL) ONE (21:33)
[2018-11-08] MEDS: CHLORHEXIDINE GLUCONATE 4% CLEANSER FOR DECOLONIZATION TP SCH (21:41)
[2018-11-08] MEDS: traZODone HCL 50 MG TABLET (FP) PO SCH (21:41)
[2018-11-08] MEDS: ATORVASTATIN CA 40 MG TABLET (FP) PO SCH (22:05)
--- NOTE | 2018-11-09 06:25 | PN ---
Physical Exam: SUBJECTIVE: Patient seen and examined HD # 8. Events overnight: No acute events overnight. Oxygen support deescalated from BiPAP to nasal cannula without difficulty. Pt complaining of pain to bilateral feet at the site of known wounds. OBJECTIVE: Vital Signs Period Temp Pulse Resp BP Sys/Medina Pulse Ox Last 24 Hr 97.2 F-97.7 F 83-96 11-23 89-111/52-73 95-98 GENERAL: The patient is awake, alert, and fully oriented, in no acute distress. HEAD: Normal with no signs of trauma. NECK: Trachea midline, full range of motion, supple. LUNGS: Nasal cannula in place. Breath sounds equal, clear to auscultation bilaterally, no wheezes, no crackles, no accessory muscle use. HEART: Regular rate and rhythm, S1, S2 without murmur, rub or gallop. ABDOMEN: Soft, nontender, nondistended EXTREMITIES: 2+ pulses, warm, clean and dry bandages to both feet. PSYCH: Normal mood, normal affect. SKIN: Warm and dry Laboratory Results - last 24 hr 11/08/18 05:30 Sodium 142 Potassium 4.3 Chloride 101 Carbon Dioxide 26 Anion Gap 15 BUN 94 H Creatinine 8.4 H* Creat Clearance w eGFR 6.17 Random Glucose 76 Calcium 10.0 Triglycerides 106 Cholesterol 84 Total LDL Cholesterol 34 HDL Cholesterol 36 L TSH 5.08 H Active Medications Generic Name Dose Route Start Last Admin Trade Name Freq PRN Reason Stop Dose Admin Apixaban 2.5 mg 11/09/18 10:00 Eliquis - PO BID MARCUS Atenolol 50 mg 11/03/18 10:00 11/08/18 11:16 Tenormin - PO 50 mg DAILY MARCUS Administration Atorvastatin Calcium 40 mg 11/03/18 22:00 11/08/18 22:05 Lipitor - PO 40 mg HS MARCUS Administration Chlorhexidine Gluconate 1 applic 11/02/18 22:00 11/08/18 21:41 Hibiclens For Decolonization - TP 1 applic HS MARCUS Administration Escitalopram Oxalate 10 mg 11/03/18 10:00 11/08/18 11:16 Lexapro - PO 10 mg DAILY MARCUS Administration Sevelamer Carbonate 800 mg 11/03/18 12:00 11/08/18 18:20 Renvela - PO 800 mg TIDCM MARCUS Administration Silver Sulfadiazine 1 applic 11/03/18 16:30 11/08/18 11:17 Silvadene - TP 1 applic DAILY MARCUS Administration Trazodone HCl 50 mg 11/03/18 22:00 11/08/18 21:41 Desyrel - PO 50 mg HS MARCUS Administration ASSESSMENT/PLAN: 78 year old male with h/o of PAD s/p revascularization of tibial arterial disease, HTN, colon CA s/p resection (25 yrs ago), afib, hx of GIB, ESRD (M, W, F), renal osteodystrophy, dementia admitted to the ICU for respiratory distress with cyanosis. Neuro (& Psych): - Consulted Dr. Parrish - Multifactorial encephalopathy, likely resolved. - Unremarkable head CT - Depression / Anxiety on Lexapro 10 mg/Trazodone and xanax prn Endocrine: - Consulted Dr. Machado - ESRD (M, W, F) s/p HD w/ ultrafiltration yesterday - Albumin 12.5 Cardiovascular: - HTN on atenolol 50 mg daily - PAD: Revascularization of tibial arteries done two weeks ago at [facility] by Dr. Martinez. Additional revision anticipated to be performed by Dr. Martinez on Thursday. - Afib w/ RVR on Apixiban - HLD on Atorvastatin 40mg HS. - Acute on Chronic Diastolic Heart Failure with subendocardial ischemic injury Pulm / Resp: - Acute on Chronic Hypoxic and Hypercapnic Respiratory Failure - Continue supplemental oxygen on Nasal Cannula - Aspiration precautions Gastrointestinal: - Elevated LFTs have resolved Hematologic: - Thrombocytopenia Infectious Disease: - Consulted Dr. Alfred - Sepsis w/ hypotension and resp failure, resolved - No longer on antibiotics FEN: - Diet Puree - Fluid and Sodium Restriction Prophylaxis: - For DVT: Already on Apixaban Dispo: - Plan to downgrade to Telemetry for Palliative Care w/ pulse oximetry monitoring. Anticipate further surgical intervention by Dr. Martinez. Visit type - Emergency Visit Emergency Visit: No - New Patient This patient is new to me today: No - Critical Care Critical Care patient: Yes Total Critical Care Time (in minutes): 38 Critical Care Statement: The care of this patient involved high complexity decision making to prevent further life threatening deterioration of the patient 's condition and/or to evaluate & treat vital organ system(s) failure or risk of failure.
[2018-11-09 07:14] LABS: ANION GAP 9 MMOL/L (8-16); BLOOD UREA NITROGEN 58 mg/dL (7-18); CALCIUM 9.6 mg/dL (8.5-10.1); CHLORIDE 100 mmol/L (98-107); CO2 32 mmol/L (21-32); GLUCOSE,RANDOM 89 mg/dL (74-106); MAGNESIUM 2.2 mg/dL (1.8-2.4); PHOSPHOROUS 4.8 mg/dL (2.5-4.9); POTASSIUM 3.5 mmol/L (3.5-5.1); SODIUM 140 mmol/L (136-145)
[2018-11-09] MEDS: SILVER SULFADIAZINE 1% TOP CREAM 50 GM JAR TP SCH (10:56)
[2018-11-09] MEDS: ESCITALOPRAM OXALATE 10 MG TABLET (FP) PO SCH (10:56)
[2018-11-09] MEDS: APIXABAN 2.5 MG TABLET PO SCH ×2 (10:56→21:07)
[2018-11-09] MEDS: SEVELAMER CARBONATE 800 MG TAB (FP) PO SCH ×3 (10:56→18:10)
--- NOTE | 2018-11-09 11:34 | PN ---
Teaching Attending Note Name of Resident: Elia Canchola ATTENDING PHYSICIAN STATEMENT I saw and evaluated the patient. I reviewed the resident's note and discussed the case with the resident. I agree with the resident's findings and plan as documented. SUBJECTIVE: Patient seen and examined in the ICU. NIPPV support overnight. Now on NC O2. Still mildly tachypneic at rest but reports feeling overall better. Still with some congested cough. Intake & Output 11/06/18 11/07/18 11/08/18 11/09/18 23:59 23:59 23:59 23:59 Intake Total 100 170 470 240 Balance 100 170 470 240 Weight 166 lb 14.4 oz 157 lb 4.8 oz Last Vital Signs Temp Pulse Resp BP Pulse Ox 98.0 F 82 12 97/63 97 11/09/18 08:00 11/09/18 10:00 11/09/18 10:00 11/09/18 10:00 11/09/18 08:27 Active Medications Apixaban (Eliquis -) 2.5 mg PO BID [facility] Last Admin: 11/09/18 10:56 Dose: 2.5 mg Atenolol (Tenormin -) 50 mg PO DAILY [facility] Last Admin: 11/08/18 11:16 Dose: 50 mg Atorvastatin Calcium (Lipitor -) 40 mg PO HS [facility] Last Admin: 11/08/18 22:05 Dose: 40 mg Chlorhexidine Gluconate (Hibiclens For Decolonization -) 1 applic TP HS [facility] Last Admin: 11/08/18 21:41 Dose: 1 applic Escitalopram Oxalate (Lexapro -) 10 mg PO DAILY [facility] Last Admin: 11/09/18 10:56 Dose: 10 mg Sevelamer Carbonate (Renvela -) 800 mg PO TIDCM [facility] Last Admin: 11/09/18 11:01 Dose: 800 mg Silver Sulfadiazine (Silvadene -) 1 applic TP DAILY [facility] Last Admin: 11/09/18 10:56 Dose: 1 applic Trazodone HCl (Desyrel -) 50 mg PO HS [facility] Last Admin: 11/08/18 21:41 Dose: 50 mg Gen: Awake and responsive on NC O2 Heart: RRR Lung: Bibasilar rales and rhonchi Abd: soft, nontender Ext: no edema, cyanotic fingers slightly improved Laboratory Results - last 24 hr 11/09/18 05:30 Sodium 140 Potassium 3.5 Chloride 100 Carbon Dioxide 32 Anion Gap 9 BUN 58 H Creatinine 6.0 H Creat Clearance w eGFR 9.09 Random Glucose 89 Calcium 9.6 Phosphorus 4.8 Magnesium 2.2 ASSESSMENT AND PLAN: Acute on Chronic Hypoxic and Hypercapneic Respiratory Failure Volume Overload Acute on Chronic Diastolic Heart Failure Elevated LFTs suspect congestive hepatopathy r/o Pneumonia r/o UTI ESRD on HD PAD/Gangrene Atrial Fibrillation Thrombocytopenia - NC / VM O2 as tolerated - NIPPV support QHS and PRN - HD per renal with ultrafiltration - Currently off ABX - O2 to keep Spo2 88% to 92% - aspiration precautions - DVT prophylaxis - 4W / 4S monitoring for oximetry - For possible amputation by the end of the week Dr Das
[2018-11-09] MEDS ORDERED: ACETAMINOPHEN 325 MG TABLET (FP) PO ONE (12:18)
--- NOTE | 2018-11-09 13:52 | PN ---
Progress Note, Physician Chief Complaint: Events noted Not in distress History of Present Illness: Patient was seen and examined. Awake and alert. Chart was reviewed Denies chest pain or palpitations - Current Medication List Current Medications: Active Medications Apixaban (Eliquis -) 2.5 mg PO BID [facility] Last Admin: 11/09/18 10:56 Dose: 2.5 mg Atenolol (Tenormin -) 50 mg PO DAILY [facility] Last Admin: 11/08/18 11:16 Dose: 50 mg Atorvastatin Calcium (Lipitor -) 40 mg PO [facility] Last Admin: 11/08/18 22:05 Dose: 40 mg Chlorhexidine Gluconate (Hibiclens For Decolonization -) 1 applic TP HS [facility] Last Admin: 11/08/18 21:41 Dose: 1 applic Escitalopram Oxalate (Lexapro -) 10 mg PO DAILY [facility] Last Admin: 11/09/18 10:56 Dose: 10 mg Sevelamer Carbonate (Renvela -) 800 mg PO TIDCM [facility] Last Admin: 11/09/18 11:01 Dose: 800 mg Silver Sulfadiazine (Silvadene -) 1 applic TP DAILY [facility] Last Admin: 11/09/18 10:56 Dose: 1 applic Trazodone HCl (Desyrel -) 50 mg PO [facility] Last Admin: 11/08/18 21:41 Dose: 50 mg - Objective Vital Signs: Vital Signs Temperature 98.4 F 11/09/18 12:00 Pulse Rate 86 11/09/18 12:00 Respiratory Rate 15 11/09/18 12:00 Blood Pressure 99/68 11/09/18 12:00 O2 Sat by Pulse Oximetry (%) 97 11/09/18 08:27 Eyes: Yes: PERRL HENT: Yes: Atraumatic Neck: Yes: Supple Cardiovascular: Yes: Pulse Irregular, S1, S2 Respiratory: Yes: Diminished Gastrointestinal: Yes: Normal Bowel Sounds, Soft. No: Tenderness Edema: No Additional Findings/Remarks: - Review of Systems Constitutional: denies: Chills, Fever Cardiovascular: denies Chest Pain, Shortness of Breath. denies: Palpitations Respiratory: denies PND, Snoring, SOB. denies: Cough, Hemoptysis, Orthopnea, Wheezing Gastrointestinal: denies: Abdominal Pain, Constipation, Diarrhea, Melena, Nausea , Rectal Bleeding, Vomiting Genitourinary: denies: Dysuria, Hematuria Musculoskeletal: denies Back Pain. denies: Joint Pain Neurological: denies: Dizziness, Headache, Seizure, Syncope Labs: CBC, BMP 11/06/18 05:30 11/09/18 05:30 Problem List - Problems (1) Acute on chronic diastolic CHF (congestive heart failure) Code(s): I50.33 - ACUTE ON CHRONIC DIASTOLIC (CONGESTIVE) HEART FAILURE (2) ESRD needing dialysis Code(s): N18.6 - END STAGE RENAL DISEASE; Z99.2 - DEPENDENCE ON RENAL DIALYSIS (3) Encephalopathy Code(s): G93.40 - ENCEPHALOPATHY, UNSPECIFIED (4) HTN (hypertension) Code(s): I10 - ESSENTIAL (PRIMARY) HYPERTENSION Qualifiers: Hypertension type: essential hypertension Qualified Code(s): I10 - Essential (primary) hypertension (5) Peripheral arterial disease Code(s): I73.9 - PERIPHERAL VASCULAR DISEASE, UNSPECIFIED (6) Respiratory distress Code(s): R06.03 - ACUTE RESPIRATORY DISTRESS (7) Sepsis Code(s): A41.9 - SEPSIS, UNSPECIFIED ORGANISM Qualifiers: Sepsis type: sepsis due to unspecified organism Qualified Code(s): A41.9 - Sepsis, unspecified organism (8) Anemia Code(s): D64.9 - ANEMIA, UNSPECIFIED Qualifiers: Anemia type: other cause Other causes of anemia: acute posthemorrhagic Qualified Code(s): D62 - Acute posthemorrhagic anemia (9) Atrial fibrillation with RVR Code(s): I48.91 - UNSPECIFIED ATRIAL FIBRILLATION Assessment/Plan 1. Acute on Chronic Hypoxic and Hypercapneic Respiratory Failure 2. Acute on Chronic Diastolic Heart Failure with subendocardial ischemic injury 3. Elevated LFTs suspect congestive hepatopathy 4. Toxic metabolic encephelopathy with underlying dementia 5. ESRD on HD 6. PAD/Gangrene s/p [employer] 7. Atrial Fibrillation 8. Thrombocytopenia PLAN: 1. HD per renal with ultrafiltration 2. BIPAP as needed 3. Follow LFT and cardiac enzymes 4. Eliquis 2.5 mg BID, Atenolol 50 mg QD and Liptor 40 mg QHS. Consider ARB as hemodynamics tolerate Further plans are to follow Jacky Gonsalves MD
[2018-11-09] MEDS: ATENOLOL 50 MG TABLET (FP) PO SCH (14:44)
--- NOTE | 2018-11-09 14:53 | PN ---
Progress Note, Physician - Current Medication List Current Medications: Active Medications Apixaban (Eliquis -) 2.5 mg PO BID [facility] Last Admin: 11/09/18 10:56 Dose: 2.5 mg Atenolol (Tenormin -) 50 mg PO DAILY [facility] Last Admin: 11/09/18 14:44 Dose: 50 mg Atorvastatin Calcium (Lipitor -) 40 mg PO HS [facility] Last Admin: 11/08/18 22:05 Dose: 40 mg Chlorhexidine Gluconate (Hibiclens For Decolonization -) 1 applic TP HS [facility] Last Admin: 11/08/18 21:41 Dose: 1 applic Escitalopram Oxalate (Lexapro -) 10 mg PO DAILY [facility] Last Admin: 11/09/18 10:56 Dose: 10 mg Sevelamer Carbonate (Renvela -) 800 mg PO TIDCM [facility] Last Admin: 11/09/18 11:01 Dose: 800 mg Silver Sulfadiazine (Silvadene -) 1 applic TP DAILY [facility] Last Admin: 11/09/18 10:56 Dose: 1 applic Trazodone HCl (Desyrel -) 50 mg PO [facility] Last Admin: 11/08/18 21:41 Dose: 50 mg - Objective Vital Signs: Vital Signs Temperature 98.4 F 11/09/18 12:00 Pulse Rate 92 H 11/09/18 14:00 Respiratory Rate 11/09/18 14:00 Blood Pressure 102/58 L 11/09/18 14:00 O2 Sat by Pulse Oximetry (%) 97 11/09/18 09:00 Labs: CBC, BMP 11/06/18 05:30 11/09/18 05:30 INR, PTT INR 1.23 (0.83-1.09) H 11/03/18 05:30
--- NOTE | 2018-11-09 15:23 | PN ---
Progress Note (short form) - Note Progress Note: Renal follow up for ESRD Pt seen and examined in the ICU awake and alert complains of pain in his heels denies any sob, cp, abd pain, N/V/D s/p dialysis yesterday Vital Signs Temperature 98.4 F 11/09/18 12:00 Pulse Rate 92 H 11/09/18 14:00 Respiratory Rate 11/09/18 14:00 Blood Pressure 102/58 L 11/09/18 14:00 O2 Sat by Pulse Oximetry (%) 97 11/09/18 09:00 Intake & Output 11/06/18 11/07/18 11/08/18 11/09/18 23:59 23:59 23:59 23:59 Intake Total 100 170 470 690 Balance 100 170 470 690 Weight 75.705 kg 71.35 kg NAD irregular, no M/R Dec BS, no overt rales No LE edema, + UE and LE cyanosis (improved) CBC, BMP 11/06/18 05:30 11/09/18 05:30 Current Medications Apixaban (Eliquis -) 2.5 mg PO BID [facility] Last Admin: 11/09/18 10:56 Dose: 2.5 mg Atenolol (Tenormin -) 50 mg PO DAILY [facility] Last Admin: 11/09/18 14:44 Dose: 50 mg Atorvastatin Calcium (Lipitor -) 40 mg PO HS [facility] Last Admin: 11/08/18 22:05 Dose: 40 mg Chlorhexidine Gluconate (Hibiclens For Decolonization -) 1 applic TP HS [facility] Last Admin: 11/08/18 21:41 Dose: 1 applic Escitalopram Oxalate (Lexapro -) 10 mg PO DAILY [facility] Last Admin: 11/09/18 10:56 Dose: 10 mg Sevelamer Carbonate (Renvela -) 800 mg PO TIDCM [facility] Last Admin: 11/09/18 11:01 Dose: 800 mg Silver Sulfadiazine (Silvadene -) 1 applic TP DAILY [facility] Last Admin: 11/09/18 10:56 Dose: 1 applic Trazodone HCl (Desyrel -) 50 mg PO HS [facility] Last Admin: 11/08/18 21:41 Dose: 50 mg 78 year old gentleman with hx of ESRD on HD, Colon Ca s/p resection, Afib, PVD, Dementia with recent hospital admission at [facility] for foot gangrene and PVD now presented from HD unit with AMS and hypotension. #ESRD on HD #Fluid overload with respiratory failure #CHF/Diastolic HF #PVD/LE gangrene #Thrombocytopenia #Anemia #Hyponatremia Volume status appears improved no indication for RESERVATIONIST today, next treatment tomorrow will continue aggressive UF with HD holding DARON as Hgb > 10 supportive care Thank you Armen Machado DO
[2018-11-09] MEDS ORDERED: LYTES/YERBA SANTA 60 ML SPRAY MM PRN (16:49)
--- NOTE | 2018-11-09 17:38 | PN ---
Progress Note, Physician - Current Medication List Current Medications: Active Medications Apixaban (Eliquis -) 2.5 mg PO BID [facility] Last Admin: 11/09/18 10:56 Dose: 2.5 mg Atenolol (Tenormin -) 50 mg PO DAILY [facility] Last Admin: 11/09/18 14:44 Dose: 50 mg Atorvastatin Calcium (Lipitor -) 40 mg PO [facility] Last Admin: 11/08/18 22:05 Dose: 40 mg Chlorhexidine Gluconate (Hibiclens For Decolonization -) 1 applic TP [facility] Last Admin: 11/08/18 21:41 Dose: 1 applic Escitalopram Oxalate (Lexapro -) 10 mg PO DAILY [facility] Last Admin: 11/09/18 10:56 Dose: 10 mg Lidocaine HCl (Xylocaine 2% Viscous Oral -) 20 ml MM Q6H PRN PRN Reason: ORAL PAIN/MOUTH SORES Saliva Substitute (Mouthkote Solution) 1 applic MM Q1H PRN PRN Reason: ORAL PAIN/MOUTH SORES Sevelamer Carbonate (Renvela -) 800 mg PO TIDCM [facility] Last Admin: 11/09/18 11:01 Dose: 800 mg Silver Sulfadiazine (Silvadene -) 1 applic TP DAILY [facility] Last Admin: 11/09/18 10:56 Dose: 1 applic Trazodone HCl (Desyrel -) 50 mg PO [facility] Last Admin: 11/08/18 21:41 Dose: 50 mg - Objective Vital Signs: Vital Signs Temperature 98.6 F 11/09/18 16:00 Pulse Rate 83 11/09/18 16:00 Respiratory Rate 16 11/09/18 16:00 Blood Pressure 100/55 L 11/09/18 16:00 O2 Sat by Pulse Oximetry (%) 97 11/09/18 16:29 Constitutional: Yes: No Distress HENT: Yes: Atraumatic Neck: Yes: Supple Cardiovascular: Yes: Regular Rate and Rhythm Respiratory: Yes: Rhonchi Gastrointestinal: Yes: Normal Bowel Sounds Extremities: Yes: WNL Neurological: Yes: Alert, Oriented Labs: CBC, BMP 11/06/18 05:30 11/09/18 05:30 INR, PTT INR 1.23 (0.83-1.09) H 11/03/18 05:30 Problem List - Problems (1) ESRD needing dialysis Assessment/Plan: on hd renal on board Code(s): N18.6 - END STAGE RENAL DISEASE; Z99.2 - DEPENDENCE ON RENAL DIALYSIS (2) HTN (hypertension) Assessment/Plan: monitor continue meds Code(s): I10 - ESSENTIAL (PRIMARY) HYPERTENSION Qualifiers: Hypertension type: essential hypertension Qualified Code(s): I10 - Essential (primary) hypertension (3) Peripheral arterial disease Assessment/Plan: dr mauricio castano saw patient Code(s): I73.9 - PERIPHERAL VASCULAR DISEASE, UNSPECIFIED (4) Sepsis Assessment/Plan: not on abx Code(s): A41.9 - SEPSIS, UNSPECIFIED ORGANISM Qualifiers: Sepsis type: sepsis due to unspecified organism Qualified Code(s): A41.9 - Sepsis, unspecified organism (5) Atrial fibrillation with RVR Code(s): I48.91 - UNSPECIFIED ATRIAL FIBRILLATION Assessment/Plan ASSESSMENT Acute on Chronic Hypoxic and Hypercapneic Respiratory Failure Volume Overload Acute on Chronic Diastolic Heart Failure Elevated LFTs suspect congestive hepatopathy r/o Pneumonia r/o UTI ESRD on HD PAD/Gangrene Atrial Fibrillation Thrombocytopenia cc time 35 min
[2018-11-09] MEDS ORDERED: PT OWN MED DRAWER 7, Y5N ONE (20:39)
[2018-11-09] MEDS: LIDOCAINE VISCOUS 2% ORAL/TOP 20 ML UNIT-DOSE CUP MM PRN (20:51)
[2018-11-09] MEDS: ATORVASTATIN CA 40 MG TABLET (FP) PO SCH (21:07)
[2018-11-09] MEDS: traZODone HCL 50 MG TABLET (FP) PO SCH (21:07)
[2018-11-09] MEDS: CHLORHEXIDINE GLUCONATE 4% CLEANSER FOR DECOLONIZATION TP SCH (21:08)
[2018-11-10] MEDS: LIDOCAINE VISCOUS 2% ORAL/TOP 20 ML UNIT-DOSE CUP MM PRN (04:46)
[2018-11-10] MEDS ORDERED: ACETAMINOPHEN 325 MG TABLET (FP) PO ONE (06:48)
[2018-11-10 07:23] LABS: ANION GAP 10 MMOL/L (8-16); BLOOD UREA NITROGEN 90 mg/dL (7-18); CALCIUM 9.7 mg/dL (8.5-10.1); CHLORIDE 98 mmol/L (98-107); CO2 30 mmol/L (21-32); GLUCOSE,RANDOM 132 mg/dL (74-106); MAGNESIUM 2.4 mg/dL (1.8-2.4); PHOSPHOROUS 4.6 mg/dL (2.5-4.9); POTASSIUM 3.5 mmol/L (3.5-5.1); SODIUM 138 mmol/L (136-145)
[2018-11-10 07:50] LABS: BASO % 0.3 % (0-2.0); EOS % 1.1 % (0-4.5); HEMATOCRIT 24.3 % (35.4-49); HEMOGLOBIN 7.5 GM/dL (11.7-16.9); LYMPH % 16.8 % (8-40); MCH 29.7 pg (25.7-33.7); MEAN CELL VOLUME 95.7 fl (80-96); MONO % 14.4 % (3.8-10.2); NEUT % 67.4 % (42.8-82.8); PLATELET COUNT 73 K/MM3 (134-434); RBC 2.54 M/mm3 (4.00-5.60); RDW 22.8 % (11.9-15.9); WHITE BLOOD COUNT 6.6 K/mm3 (4.0-10.0)
[2018-11-10] MEDS ORDERED: SODIUM CHLORIDE 250 ML IV PRN (08:22)
[2018-11-10] MEDS ORDERED: SODIUM CHLORIDE 500 ML IV STA (08:53)
[2018-11-10] MEDS ORDERED: PANTOPRAZOLE SODIUM 80 MG in SODIUM CHLORIDE 100 ML IVPB SCH (09:00)
[2018-11-10] MEDS ORDERED: EPOETIN ALFA 10,000 UNIT/1 ML VIAL IVPUSH ONE (09:15)
[2018-11-10] MEDS: SEVELAMER CARBONATE 800 MG TAB (FP) PO SCH ×3 (09:28→17:31)
[2018-11-10 09:36] LABS: INR 1.84 (0.83-1.09); PROTHROMBIN TIME (PATIENT) 21.9 SEC (9.7-13.0)
--- NOTE | 2018-11-10 10:57 | CON.GI ---
Consult Consult Specialty:: Gastroenterology Referred by:: Dr. Thomas Reason for Consultation:: Anemia - History of Present Illness History of Present Illness: 78yo male h/o A fib on eliquis, ESRD on HD, Colon ca s/p resection, PAD, foot gangrene s/p recent LLE angioplasty presenting with weakness and AMS asked to evaluate for anemia. Pt had been pending transfer to telemetry however found to have positive FOBT with drop in Hb to 7.5 from 10.6 on 11/06 (no interval CBC) therefore GI asked to evaluate for possible GI bleed. Pt reports feeling better, denies abdominal pain , n/v, or blood in stools. Ate breakfast this am, tolerated well. Pt was noted by staff to have had a dark ?melanotic stool this am however diaper/sheets seen with brown stool. No blood. Of note, pt was seen by Dr. Beebe on 06/2018 for anemia and melena s/p EGD on 07/01/18 revealing nonbleeding antral ulcer, duodenal erosions and thickened GEJ (biopsies revealing gastritis). - Past Medical History BRIEFCASE SEWER: Yes: Alzheimer's, Other (delirium) Cardio/Vascular: Yes: CAD, HTN Renal/: Yes: Renal Failure - Past Surgical History Past Surgical History: Yes: AV Fistula/Graft - Alcohol/Substance Use Hx Alcohol Use: No History of Substance Use: reports: None - Smoking History Smoking history: Never smoked Have you smoked in the past 12 months: No - Social History Usual Living Arrangement: Senior Living ADL: Support Services History of Recent Travel: No Home Medications - Allergies Allergies/Adverse Reactions: Allergies Allergy/AdvReac Type Severity Reaction Status Date / Time No Known Allergies Allergy Verified 11/01/18 13:43 - Home Medications Home Medications: Ambulatory Orders Alprazolam [Xanax] 0.5 mg PO BID PRN 08/15/16 Atenolol [Tenormin -] 50 mg PO DAILY 08/15/16 Zolpidem Tartrate [Ambien] 5 mg PO HS 08/15/16 traZODone HCL [Trazodone HCl] 50 mg PO HS 08/15/16 Docusate Sodium [Colace] 2 cap PO HS 06/30/18 Escitalopram Oxalate [Lexapro -] 10 mg PO DAILY 06/30/18 Memantine HCl [Namenda -] 5 mg PO BID 06/30/18 Polyethylene Glycol 3350 [Laxaclear] 1,700 gm PO DAILY 06/30/18 Sennosides [Senna Concentrate] 8.6 mg PO DAILY 06/30/18 Sevelamer Carbonate [Renvela -] 800 mg PO TID 06/30/18 Vit B Comp No.3/Folic/C/Biotin [Nephro-Louie Rx Tablet] 1 each PO DAILY 06/30/18 Acetaminophen [Tylenol .Regular Strength -] 650 mg PO Q6H PRN tablet 08/04/18 Aspirin Coated [Ecotrin -] 81 mg PO DAILY tablet.ec 08/04/18 Aspirin [ASA -] 81 mg PO DAILY #30 tab.chew 08/04/18 Atorvastatin Ca [Lipitor] 40 mg PO HS tablet 08/04/18 Collagenase Clostridium Hist. [Santyl -] 1 applic TP DAILY tube 08/04/18 Cinacalcet HCl [Sensipar -] 60 mg PO DAILY 11/01/18 Clopidogrel Bisulfate [Plavix] 75 mg PO DAILY 11/01/18 Oxycodone HCl/Acetaminophen [Percocet 5-325 mg Tablet] 1 tab PO TID PRN Review of Systems - Review of Systems Constitutional: reports: No Symptoms Cardiovascular: reports: No Symptoms Respiratory: reports: No Symptoms Gastrointestinal: reports: No Symptoms Physical Exam-GI Vital Signs: Vital Signs Temperature 98.5 F 11/10/18 10:00 Pulse Rate 81 11/10/18 10:00 Respiratory Rate 12 11/10/18 10:00 Blood Pressure 92/39 L 11/10/18 10:00 O2 Sat by Pulse Oximetry (%) 99 11/10/18 02:58 Constitutional: Yes: Well Nourished, No Distress, Calm Cardiovascular: Yes: WNL, Pulse Irregular Respiratory: Yes: WNL, Regular, CTA Bilaterally Gastrointestinal Inspection: Yes: WNL ...Auscultate: Yes: Other (Abd soft, nt, nd) ...Rectal Exam: Yes: Other (Rectal exam revealing brown stool, no blood) Labs: CBC, BMP 11/10/18 05:30 11/10/18 05:30 INR, PTT INR 1.84 (0.83-1.09) H 11/10/18 07:51 Problem List - Problems (1) Anemia Code(s): D64.9 - ANEMIA, UNSPECIFIED Qualifiers: Anemia type: other cause Other causes of anemia: acute posthemorrhagic Qualified Code(s): D62 - Acute posthemorrhagic anemia Assessment/Plan 78yo male h/o A fib on eliquis, ESRD on HD, Colon ca s/p resection, PAD, foot gangrene s/p recent LLE angioplasty presenting with weakness and AMS asked to evaluate for acute anemia. No overt bleeding, brown stool on exam. Prior EGD in 06/2018 for melena revealing non-bleeding antral ulcer. -No urgent indication for endoscopic intervention currently in absence of overt bleeding, pt also ate breakfast this am. -Recommend continue to closely monitor Hb and for evidence of overt bleeding with transfusion as needed -PPI BID -Hold antithrombotics for now if no cardiac contraindication -Clear liquid diet -Pt may benefit from EGD prior to resuming eliquis once further optimized from a cardiorespiratory standpoint pending course. However if further drop in Hb without response to prbc transfusion or evidence of overt bleeding would consider more urgent EGD at that time. Discussed with MICU team.
--- NOTE | 2018-11-10 11:13 | PN ---
Progress Note (short form) - Note Progress Note: Renal follow up for ESRD Pt seen and examined in the ICU awake and alert on dialysis, BP stable, AVF working well Goal UF reduced to 2-2.5L given worsening anemia will use albumin as needed with HD to maintain BP to get 2 units of PRBC transfused with HD today Vital Signs Temperature 98.5 F 11/10/18 10:00 Pulse Rate 81 11/10/18 10:00 Respiratory Rate 12 11/10/18 10:00 Blood Pressure 92/39 L 11/10/18 10:00 O2 Sat by Pulse Oximetry (%) 99 11/10/18 09:00 Intake & Output 11/07/18 11/08/18 11/09/18 11/10/18 23:59 23:59 23:59 23:59 Intake Total 213 651 5102 120 Output Total 75 Balance 170 470 975 120 Weight 75.705 kg 71.35 kg NAD irregular, no M/R Dec BS, no overt rales No LE edema, + UE and LE cyanosis (improved) CBC, BMP 11/10/18 05:30 11/10/18 05:30 Current Medications Apixaban (Eliquis -) 2.5 mg PO BID [facility] Last Admin: 11/09/18 21:07 Dose: 2.5 mg Atenolol (Tenormin -) 50 mg PO DAILY [facility] Last Admin: 11/09/18 14:44 Dose: 50 mg Atorvastatin Calcium (Lipitor -) 40 mg PO HS [facility] Last Admin: 11/09/18 21:07 Dose: 40 mg Chlorhexidine Gluconate (Hibiclens For Decolonization -) 1 applic TP HS [facility] Last Admin: 11/09/18 21:08 Dose: 1 applic Escitalopram Oxalate (Lexapro -) 10 mg PO DAILY [facility] Last Admin: 11/09/18 10:56 Dose: 10 mg Sodium Chloride (Normal Saline -) 250 mls @ 3,000 mls/hr IV PRN PRN PRN Reason: Hypotension during Dialysis Stop: 11/11/18 08:22 Pantoprazole Sodium 80 mg/ (Sodium Chloride) 100 mls @ 10 mls/hr IVPB Q10H [facility] Lidocaine HCl (Xylocaine 2% Viscous Oral -) 20 ml MM Q6H PRN PRN Reason: ORAL PAIN/MOUTH SORES Last Admin: 11/10/18 04:46 Dose: 20 ml Saliva Substitute (Mouthkote Solution) 1 applic MM Q1H PRN PRN Reason: ORAL PAIN/MOUTH SORES Last Admin: 11/09/18 23:32 Dose: 1 applic Sevelamer Carbonate (Renvela -) 800 mg PO TIDCM [facility] Last Admin: 11/10/18 09:28 Dose: Not Given Silver Sulfadiazine (Silvadene -) 1 applic TP DAILY [facility] Last Admin: 11/09/18 10:56 Dose: 1 applic Trazodone HCl (Desyrel -) 50 mg PO HS [facility] Last Admin: 11/09/18 21:07 Dose: 50 mg 78 year old gentleman with hx of ESRD on HD, Colon Ca s/p resection, Afib, PVD, Dementia with recent hospital admission at [facility] for foot gangrene and PVD now presented from HD unit with AMS and hypotension. #ESRD on HD #Fluid overload with respiratory failure #CHF/Diastolic HF #PVD/LE gangrene #Thrombocytopenia #Anemia #Hyponatremia tolerating dialysis well this am UF goal of 2-2.5L as tolerated using 3k bath will transfuse 2 PRBC with hd today continue fluid restriction GI follow for suspected GI bleed Thank you Armen Machado DO
[2018-11-10] MEDS ORDERED: PT OWN MED DRAWER 7, Y5N ONE ×3 (11:17→21:26)
[2018-11-10] MEDS: ALBUMIN HUMAN 25% 12.5 GM/50 ML VIAL IVPB SCH ×4 (11:20→15:15)
[2018-11-10] MEDS: ATENOLOL 50 MG TABLET (FP) PO SCH (12:11)
[2018-11-10] MEDS: ESCITALOPRAM OXALATE 10 MG TABLET (FP) PO SCH (12:11)
--- NOTE | 2018-11-10 12:14 | PN ---
Progress Note, Physician History of Present Illness: Resting on TX for acute on chronic hypercapneic respiratory failure, undergoing HD. - Current Medication List Current Medications: Active Medications Apixaban (Eliquis -) 2.5 mg PO BID [facility] Last Admin: 11/09/18 21:07 Dose: 2.5 mg Atenolol (Tenormin -) 50 mg PO DAILY [facility] Last Admin: 11/10/18 12:11 Dose: Not Given Atorvastatin Calcium (Lipitor -) 40 mg PO HS [facility] Last Admin: 11/09/18 21:07 Dose: 40 mg Chlorhexidine Gluconate (Hibiclens For Decolonization -) 1 applic TP HS [facility] Last Admin: 11/09/18 21:08 Dose: 1 applic Escitalopram Oxalate (Lexapro -) 10 mg PO DAILY [facility] Last Admin: 11/10/18 12:11 Dose: Not Given Sodium Chloride (Normal Saline -) 250 mls @ 3,000 mls/hr IV PRN PRN PRN Reason: Hypotension during Dialysis Stop: 11/11/18 08:22 Pantoprazole Sodium 80 mg/ (Sodium Chloride) 100 mls @ 10 mls/hr IVPB Q10H [facility] Lidocaine HCl (Xylocaine 2% Viscous Oral -) 20 ml MM Q6H PRN PRN Reason: ORAL PAIN/MOUTH SORES Last Admin: 11/10/18 04:46 Dose: 20 ml Saliva Substitute (Mouthkote Solution) 1 applic MM Q1H PRN PRN Reason: ORAL PAIN/MOUTH SORES Last Admin: 11/09/18 23:32 Dose: 1 applic Sevelamer Carbonate (Renvela -) 800 mg PO TIDCM [facility] Last Admin: 11/10/18 12:11 Dose: Not Given Silver Sulfadiazine (Silvadene -) 1 applic TP DAILY [facility] Last Admin: 11/09/18 10:56 Dose: 1 applic Trazodone HCl (Desyrel -) 50 mg PO HS [facility] Last Admin: 11/09/18 21:07 Dose: 50 mg - Objective Vital Signs: Vital Signs Temperature 98.5 F 11/10/18 10:00 Pulse Rate 83 11/10/18 11:25 Respiratory Rate 18 11/10/18 11:25 Blood Pressure 97/70 11/10/18 11:25 O2 Sat by Pulse Oximetry (%) 100 04/10/19 09:30 Constitutional: Yes: No Distress, Calm, Thin Neck: Yes: Supple Cardiovascular: Yes: Pulse Irregular Respiratory: Yes: Regular, Diminished, On Nasal O2 Gastrointestinal: Yes: Soft, Hypoactive Bowel Sounds Edema: No Labs: CBC, BMP 11/10/18 05:30 11/10/18 05:30 INR, PTT INR 1.84 (0.83-1.09) H 11/10/18 07:51 - ....Imaging EKG: Report Reviewed (Tele: Vitor afib) Problem List - Problems (1) ESRD needing dialysis Code(s): N18.6 - END STAGE RENAL DISEASE; Z99.2 - DEPENDENCE ON RENAL DIALYSIS (2) HTN (hypertension) Code(s): I10 - ESSENTIAL (PRIMARY) HYPERTENSION Qualifiers: Hypertension type: essential hypertension Qualified Code(s): I10 - Essential (primary) hypertension (3) Peripheral arterial disease Code(s): I73.9 - PERIPHERAL VASCULAR DISEASE, UNSPECIFIED (4) Anemia Code(s): D64.9 - ANEMIA, UNSPECIFIED Qualifiers: Anemia type: other cause Other causes of anemia: acute posthemorrhagic Qualified Code(s): D62 - Acute posthemorrhagic anemia (5) Atrial fibrillation with RVR Code(s): I48.91 - UNSPECIFIED ATRIAL FIBRILLATION (6) Gangrene of toe of left foot Code(s): I96 - GANGRENE, NOT ELSEWHERE CLASSIFIED (7) Thrombocytopenia Code(s): D69.6 - THROMBOCYTOPENIA, UNSPECIFIED Assessment/Plan 07/01/2018 Echo: Normal LV size and fxn LVEF 55-60%, normal RV size and fxn, mod LAE, mild [place], tr MR, mild-mod TR RVSP 32 mmHg 1. Acute on Chronic Hypoxic and Hypercapneic Respiratory Failure 2. Acute on Chronic Diastolic Heart Failure with subendocardial ischemic injury 3. Elevated LFTs suspect congestive hepatopathy 4. Toxic metabolic encephelopathy with underlying dementia 5. ESRD on HD 6. PAD/Gangrene s/p [employer] 7. Persistent atrial fibrillation with RVR 8. Acute blood loss anemia, Thrombocytopenia 9. Colon ca s/p resection 10. Peptic ulcer disease, h/o GI bleed PLAN: 1. HD per renal with ultrafiltration 2. BIPAP and O2 as needed 3. LFT and cardiac enzymes downtrended 4. Holding Eliquis 2.5 mg BID, Atenolol 50 mg QD pending hemostasis, continue Liptor 40 mg QHS. Consider ARB as hemodynamics tolerate 5. Transfuse pRBC to maintain Hgb > 8.0, protonix
--- NOTE | 2018-11-10 12:15 | PN ---
Teaching Attending Note Name of Resident: Doug Thomas ATTENDING PHYSICIAN STATEMENT I saw and evaluated the patient. I reviewed the resident's note and discussed the case with the resident. I agree with the resident's findings and plan as documented. SUBJECTIVE: Pt seen and examined in the ICU. Dark stools overnight with drop in H/H. Denies abdominal pain. No nausea or vomiting. OBJECTIVE: Vital Signs Period Temp Pulse Resp BP Sys/Medina Pulse Ox Last 24 Hr 97.7 F-98.7 F 75-96 06-21 92-115/39-70 97-100 Intake & Output 11/07/18 11/08/18 11/09/18 11/10/18 23:59 23:59 23:59 23:59 Intake Total 694 382 6231 120 Output Total 75 Balance 170 470 975 120 Weight 75.705 kg 71.35 kg Gen: NAD at rest Heart: RRR Lung: decreased breath sounds at the bases Abd: soft, nontender Ext: no edema CBC, BMP 11/10/18 05:30 11/10/18 05:30 Active Medications Apixaban (Eliquis -) 2.5 mg PO BID [facility] Last Admin: 11/09/18 21:07 Dose: 2.5 mg Atenolol (Tenormin -) 50 mg PO DAILY [facility] Last Admin: 11/10/18 12:11 Dose: Not Given Atorvastatin Calcium (Lipitor -) 40 mg PO HS [facility] Last Admin: 11/09/18 21:07 Dose: 40 mg Chlorhexidine Gluconate (Hibiclens For Decolonization -) 1 applic TP HS [facility] Last Admin: 11/09/18 21:08 Dose: 1 applic Escitalopram Oxalate (Lexapro -) 10 mg PO DAILY [facility] Last Admin: 11/10/18 12:11 Dose: Not Given Sodium Chloride (Normal Saline -) 250 mls @ 3,000 mls/hr IV PRN PRN PRN Reason: Hypotension during Dialysis Stop: 11/11/18 08:22 Pantoprazole Sodium 80 mg/ (Sodium Chloride) 100 mls @ 10 mls/hr IVPB Q10H [facility] Lidocaine HCl (Xylocaine 2% Viscous Oral -) 20 ml MM Q6H PRN PRN Reason: ORAL PAIN/MOUTH SORES Last Admin: 11/10/18 04:46 Dose: 20 ml Saliva Substitute (Mouthkote Solution) 1 applic MM Q1H PRN PRN Reason: ORAL PAIN/MOUTH SORES Last Admin: 11/09/18 23:32 Dose: 1 applic Sevelamer Carbonate (Renvela -) 800 mg PO TIDCM [facility] Last Admin: 11/10/18 12:11 Dose: Not Given Silver Sulfadiazine (Silvadene -) 1 applic TP DAILY [facility] Last Admin: 11/09/18 10:56 Dose: 1 applic Trazodone HCl (Desyrel -) 50 mg PO HS [facility] Last Admin: 11/09/18 21:07 Dose: 50 mg ASSESSMENT AND PLAN: Acute on Chronic Hypoxic and Hypercapneic Respiratory Failure improving Acute on Chronic Diastolic Heart Failure +Troponins likely Demand Ischemia Elevated LFTs suspect congestive hepatopathy GI Bleed Acute Blood Loss Anemia ESRD on HD PAD/Gangrene s/p [employer] Atrial Fibrillation Thrombocytopenia - transfuse PRBC - monitor H/H, platelets - protonix - GI evaluation appreciated - HD per renal - hold antihypertensives - hold anticoagulation - O2 to keep SpO2 >90% - BiPAP as needed to assist in work of breathing - DVT prophylaxis - continue ICU monitoring critical care time spent in reviewing chart, evaluating patient and formulating plan 35 min
[2018-11-10 12:53] LABS: ANISOCYTOSIS 2+; MACROCYTOSIS 0; OVALOCYTE 1+; PLATELET ESTIMATE DECREASED
--- NOTE | 2018-11-10 13:19 | PN ---
Progress Note, Physician History of Present Illness: Seen and examined at bedside. Had brown stool overnight. Stool OB however +ve, AM cbc showed hgb of 7.5. NC throughout the night. No other complaint - Current Medication List Current Medications: Active Medications Apixaban (Eliquis -) 2.5 mg PO BID [facility] Last Admin: 11/09/18 21:07 Dose: 2.5 mg Atenolol (Tenormin -) 50 mg PO DAILY [facility] Last Admin: 11/10/18 12:11 Dose: Not Given Atorvastatin Calcium (Lipitor -) 40 mg PO HS [facility] Last Admin: 11/09/18 21:07 Dose: 40 mg Chlorhexidine Gluconate (Hibiclens For Decolonization -) 1 applic TP HS [facility] Last Admin: 11/09/18 21:08 Dose: 1 applic Escitalopram Oxalate (Lexapro -) 10 mg PO DAILY [facility] Last Admin: 11/10/18 12:11 Dose: Not Given Sodium Chloride (Normal Saline -) 250 mls @ 3,000 mls/hr IV PRN PRN PRN Reason: Hypotension during Dialysis Stop: 11/11/18 08:22 Pantoprazole Sodium 80 mg/ (Sodium Chloride) 100 mls @ 10 mls/hr IVPB Q10H [facility] Lidocaine HCl (Xylocaine 2% Viscous Oral -) 20 ml MM Q6H PRN PRN Reason: ORAL PAIN/MOUTH SORES Last Admin: 11/10/18 04:46 Dose: 20 ml Saliva Substitute (Mouthkote Solution) 1 applic MM Q1H PRN PRN Reason: ORAL PAIN/MOUTH SORES Last Admin: 11/09/18 23:32 Dose: 1 applic Sevelamer Carbonate (Renvela -) 800 mg PO TIDCM [facility] Last Admin: 11/10/18 12:11 Dose: Not Given Silver Sulfadiazine (Silvadene -) 1 applic TP DAILY [facility] Last Admin: 11/09/18 10:56 Dose: 1 applic Trazodone HCl (Desyrel -) 50 mg PO HS [facility] Last Admin: 11/09/18 21:07 Dose: 50 mg - Objective Vital Signs: Vital Signs Temperature 98.5 F 11/10/18 10:00 Pulse Rate 83 11/10/18 11:25 Respiratory Rate 18 11/10/18 11:25 Blood Pressure 97/70 11/10/18 11:25 O2 Sat by Pulse Oximetry (%) 100 11/10/18 09:30 Constitutional: Yes: Calm. No: Mild Distress Cardiovascular: Yes: Regular Rate and Rhythm, S1, S2. No: Murmur Respiratory: Yes: Rhonchi Gastrointestinal: Yes: Normal Bowel Sounds, Soft, Tenderness ...Rectal Exam: Yes: Guaiac Positive, Sphincter Tone Normal. No: Mass Neurological: Yes: Alert, Oriented Psychiatric: Yes: Alert, Oriented Labs: CBC, BMP 11/10/18 05:30 11/10/18 05:30 INR, PTT INR 1.84 (0.83-1.09) H 11/10/18 07:51 Impression/Plan Impression/Plan: 78 yo M h/o PAD s/p revascularization of tibial arterial disease, HTN, colon CA s/p resection (25 yrs ago), afib on eliquis, UGIB, ESRD (M, W, F), renal osteodystrophy, dementia admitted to the ICU for acute on chronic hypercapnic respiratory failure, now being observed for UGIB bleed. GI: - HGB 7.5 w/ no sign of active bleed, h/o non-bleeding gastric ulcer - 2 PRBC during HD - Clear diet - Protonix IV 40mg BID - Repeat CBC after HD, trend CBC q8h - IV access Neuro: - Depression / Anxiety on Lexapro 10 mg/Trazodone and xanax prn Renal: - HD today CV: - HTN on atenolol 50 mg daily - Afib w/ RVR, on atenolol, hold eliquis for procedure on Thursday - HLD on Atorvastatin 40mg HS. Vascular: - PAD: Revascularization on Thursday, hold eliquis Pulm / Resp: - Stable, bipap QHS PRN, on NC now - Aspiration precautions FEN: - Clear - Fluid and Sodium Restriction Prophylaxis: - For DVT: hold eliquis temporarily Dispo: - Cont. to monitor in ICU for GI bleed. Anticipate further surgical intervention by Dr. Martinez. Visit type - Emergency Visit Emergency Visit: No - New Patient This patient is new to me today: No - Critical Care Critical Care patient: Yes Total Critical Care Time (in minutes): 35 Critical Care Statement: The care of this patient involved high complexity decision making to prevent further life threatening deterioration of the patient 's condition and/or to evaluate & treat vital organ system(s) failure or risk of failure.
[2018-11-10] MEDS: SILVER SULFADIAZINE 1% TOP CREAM 50 GM JAR TP SCH (14:47)
--- NOTE | 2018-11-10 15:45 | PROC ---
Procedure Note Procedure: Ultrasound Guided IV Line Placement PROCEDURE NOTE: IV Placement under Ultrasound Guidance PROCEDURE QUALITY CONTROL CHECKER: Elia Canchola M.D. Resident Indication: IV access required. Multiple attempts at peripheral IV placement were made by the nursing and resident physician teams without success Procedure: The area was prepped in the usual fashion. The L basilic vein was cannulated with a 20 gauge angiocath with use of dynamic ultrasound to identify the vein. The patient tolerated the procedure well. Complications: none
--- NOTE | 2018-11-10 16:35 | PN ---
Progress Note, Physician History of Present Illness: doing well was given 2 u prbc stool occult positive per resident note pt had brown stool? patient is on eliquis hold if overt bleeding - Current Medication List Current Medications: Active Medications Apixaban (Eliquis -) 2.5 mg PO BID [facility] Last Admin: 11/09/18 21:07 Dose: 2.5 mg Atenolol (Tenormin -) 50 mg PO DAILY [facility] Last Admin: 11/10/18 12:11 Dose: Not Given Atorvastatin Calcium (Lipitor -) 40 mg PO HS [facility] Last Admin: 11/09/18 21:07 Dose: 40 mg Chlorhexidine Gluconate (Hibiclens For Decolonization -) 1 applic TP HS [facility] Last Admin: 11/09/18 21:08 Dose: 1 applic Escitalopram Oxalate (Lexapro -) 10 mg PO DAILY [facility] Last Admin: 11/10/18 12:11 Dose: Not Given Sodium Chloride (Normal Saline -) 250 mls @ 3,000 mls/hr IV PRN PRN PRN Reason: Hypotension during Dialysis Stop: 11/11/18 08:22 Lidocaine HCl (Xylocaine 2% Viscous Oral -) 20 ml MM Q6H PRN PRN Reason: ORAL PAIN/MOUTH SORES Last Admin: 11/10/18 04:46 Dose: 20 ml Pantoprazole Sodium (Protonix Iv) 40 mg IVPUSH BID [facility] Saliva Substitute (Mouthkote Solution) 1 applic MM Q1H PRN PRN Reason: ORAL PAIN/MOUTH SORES Last Admin: 11/09/18 23:32 Dose: 1 applic Sevelamer Carbonate (Renvela -) 800 mg PO TIDCM [facility] Last Admin: 11/10/18 12:11 Dose: Not Given Silver Sulfadiazine (Silvadene -) 1 applic TP DAILY [facility] Last Admin: 11/10/18 14:47 Dose: 1 applic Trazodone HCl (Desyrel -) 50 mg PO HS [facility] Last Admin: 11/09/18 21:07 Dose: 50 mg - Objective Vital Signs: Vital Signs Temperature 98.1 F 11/10/18 14:00 Pulse Rate 87 11/10/18 14:00 Respiratory Rate 14 11/10/18 14:00 Blood Pressure 106/88 11/10/18 14:00 O2 Sat by Pulse Oximetry (%) 100 11/10/18 09:30 Constitutional: Yes: No Distress HENT: Yes: Atraumatic Neck: Yes: Supple Cardiovascular: Yes: Regular Rate and Rhythm Respiratory: Yes: Rhonchi Gastrointestinal: Yes: Normal Bowel Sounds Extremities: Yes: WNL Edema: No Peripheral Pulses WNL: Yes Neurological: Yes: Alert, Oriented Labs: CBC, BMP 11/10/18 05:30 11/10/18 05:30 INR, PTT INR 1.84 (0.83-1.09) H 11/10/18 07:51 Problem List - Problems (1) ESRD needing dialysis Assessment/Plan: on hd renal on board Code(s): N18.6 - END STAGE RENAL DISEASE; Z99.2 - DEPENDENCE ON RENAL DIALYSIS (2) HTN (hypertension) Assessment/Plan: monitor continue meds Code(s): I10 - ESSENTIAL (PRIMARY) HYPERTENSION Qualifiers: Hypertension type: essential hypertension Qualified Code(s): I10 - Essential (primary) hypertension (3) Peripheral arterial disease Assessment/Plan: dr mauricio castano saw patient Code(s): I73.9 - PERIPHERAL VASCULAR DISEASE, UNSPECIFIED (4) Sepsis Assessment/Plan: not on abx Code(s): A41.9 - SEPSIS, UNSPECIFIED ORGANISM Qualifiers: Sepsis type: sepsis due to unspecified organism Qualified Code(s): A41.9 - Sepsis, unspecified organism (5) Atrial fibrillation with RVR Code(s): I48.91 - UNSPECIFIED ATRIAL FIBRILLATION (6) GI (gastrointestinal bleed) Assessment/Plan: stool occult positive s/p 2 u prbc gi eval Code(s): K92.2 - GASTROINTESTINAL HEMORRHAGE, UNSPECIFIED Assessment/Plan ASSESSMENT Acute on Chronic Hypoxic and Hypercapneic Respiratory Failure Volume Overload Acute on Chronic Diastolic Heart Failure Elevated LFTs suspect congestive hepatopathy r/o Pneumonia r/o UTI ESRD on HD PAD/Gangrene Atrial Fibrillation Thrombocytopenia cc time 35 min
[2018-11-10] MEDS ORDERED: PANTOPRAZOLE SODIUM 40 MG VIAL IVPUSH ONE (17:17)
[2018-11-10 17:49] LABS: BASO % 0.6 % (0-2.0); EOS % 0.6 % (0-4.5); HEMATOCRIT 28.2 % (35.4-49); HEMOGLOBIN 9.3 GM/dL (11.7-16.9); LYMPH % 12.2 % (8-40); MCH 30.8 pg (25.7-33.7); MCHC 32.8 g/dl (32.0-35.9); MEAN CELL VOLUME 93.7 fl (80-96); MEAN PLT VOLUME 11.3 fl (7.5-11.1); NEUT % 67.6 % (42.8-82.8); PLATELET COUNT 70 K/MM3 (134-434); RBC 3.01 M/mm3 (4.00-5.60); RDW 19.1 % (11.9-15.9); WHITE BLOOD COUNT 8.2 K/mm3 (4.0-10.0)
[2018-11-10] MEDS: traZODone HCL 50 MG TABLET (FP) PO SCH (22:41)
[2018-11-10] MEDS: ATORVASTATIN CA 40 MG TABLET (FP) PO SCH (22:41)
[2018-11-10] MEDS: CHLORHEXIDINE GLUCONATE 4% CLEANSER FOR DECOLONIZATION TP SCH (22:42)
[2018-11-10] MEDS: PANTOPRAZOLE SODIUM 40 MG VIAL IVPUSH SCH (22:42)
[2018-11-11] MEDS ORDERED: diphenhydrAMINE HCL 25 MG CAPSULE (FP) PO ONE (01:54)
[2018-11-11 06:33] LABS: BASO % 0.4 % (0-2.0); EOS % 0.8 % (0-4.5); HEMATOCRIT 27.6 % (35.4-49); HEMOGLOBIN 9.2 GM/dL (11.7-16.9); LYMPH % 17.4 % (8-40); MCH 31.2 pg (25.7-33.7); MCHC 33.2 g/dl (32.0-35.9); MONO % 20.4 % (3.8-10.2); PLATELET COUNT 68 K/MM3 (134-434); RBC 2.94 M/mm3 (4.00-5.60); RDW 20.3 % (11.9-15.9); WHITE BLOOD COUNT 7.9 K/mm3 (4.0-10.0)
[2018-11-11 07:09] LABS: ANION GAP 6 MMOL/L (8-16); BLOOD UREA NITROGEN 44 mg/dL (7-18); CALCIUM 10.2 mg/dL (8.5-10.1); CHLORIDE 101 mmol/L (98-107); CO2 32 mmol/L (21-32); GLUCOSE,RANDOM 93 mg/dL (74-106); PHOSPHOROUS 3.4 mg/dL (2.5-4.9); POTASSIUM 3.3 mmol/L (3.5-5.1); SODIUM 139 mmol/L (136-145)
--- NOTE | 2018-11-11 08:11 | PN ---
Physical Exam: SUBJECTIVE: Patient seen and examined HD# 10 Overnight Events: No acute events overnight. Pt continues to complain of unchanged pain to both feet at site of wounds. Completed full HD run yesterday. Received 2 units PRBCs. Repeat H/H trended upward. Apixiban held. PPI started. OBJECTIVE: Lines: - PIV Drains: - None Supplemental Oxygen: Nasal Cannula @ 3 LPM Vital Signs Period Temp Pulse Resp BP Sys/Medina Pulse Ox Last 24 Hr 98 F-98.7 F 77-99 12-22 92-128/39-94 93-100 GENERAL: The patient is awake, alert, and oriented to person and place but confused about events, in no acute distress. HEAD: Normal with no signs of trauma. EYES: Conjunctiva pink and clear. NECK: Trachea midline, full range of motion, supple. LUNGS: Nasal cannula in place. Breath sounds equal, clear to auscultation bilaterally, no wheezes, no crackles, no accessory muscle use. HEART: Irregularly irregular, S1, S2 without murmur, rub or gallop. ABDOMEN: Soft and nondistended with mild tenderness to epigastrium without rebound or guarding. EXTREMITIES: Black necrotic tissue to distal 1/3 of left second toe. No obvious purulence. Warm, well-perfused, no edema. PSYCH: Normal mood, normal affect. SKIN: Warm and dry Laboratory Results - last 24 hr 11/10/18 11/10/18 11/10/18 05:30 07:51 09:27 WBC 6.6 RBC 2.54 L Hgb 7.5 L Hct 24.3 L D MCV 95.7 MCH 29.7 MCHC 31.0 L RDW 22.8 H Plt Count 73 L D MPV 11.0 Absolute Neuts (auto) 4.4 Neutrophils % 67.4 Lymphocytes % 16.8 Monocytes % 14.4 H Eosinophils % 1.1 Basophils % 0.3 Nucleated RBC % 0 Hypochromia 1+ Platelet Estimate Decreased Platelet Comment Present Polychromasia 2+ Poikilocytosis 2+ Anisocytosis 2+ Microcytosis 2+ Macrocytosis 0 Spherocytes 1+ Ovalocytes 1+ Stomatocytes 1+ PT with INR 21.90 H INR 1.84 H Sodium Potassium Chloride Carbon Dioxide Anion Gap BUN Creatinine Creat Clearance w eGFR Random Glucose Calcium Phosphorus Magnesium Blood Type A POSITIVE Antibody Screen Negative Crossmatch See Detail 11/10/18 11/11/18 11/11/18 17:30 05:30 05:30 WBC 8.2 7.9 RBC 3.01 L 2.94 L Hgb 9.3 L 9.2 L Hct 28.2 L D 27.6 L MCV 93.7 94.0 MCH 30.8 31.2 MCHC 32.8 33.2 RDW 19.1 H 20.3 H Plt Count 70 L 68 L MPV 11.3 H 11.0 Absolute Neuts (auto) 5.5 4.8 Neutrophils % 67.6 61.0 Lymphocytes % 12.2 D 17.4 D Monocytes % 19.0 H 20.4 H Eosinophils % 0.6 0.8 Basophils % 0.6 0.4 Nucleated RBC % 0 0 Hypochromia Platelet Estimate Platelet Comment Polychromasia Poikilocytosis Anisocytosis Microcytosis Macrocytosis Spherocytes Ovalocytes Stomatocytes PT with INR INR Sodium 139 Potassium 3.3 L Chloride 101 Carbon Dioxide 32 Anion Gap 6 L BUN 44 H Creatinine 4.0 H Creat Clearance w eGFR 14.52 Random Glucose 93 Calcium 10.2 H Phosphorus 3.4 Magnesium 2.0 Blood Type Antibody Screen Crossmatch Active Medications Generic Name Dose Route Start Last Admin Trade Name Freq PRN Reason Stop Dose Admin Apixaban 2.5 mg 11/09/18 10:00 11/09/18 21:07 Eliquis - PO 2.5 mg BID [facility] Administration Atenolol 50 mg 11/11/18 10:00 Tenormin - PO DAILY [facility] Atorvastatin Calcium 40 mg 11/11/18 22:00 Lipitor - PO HS [facility] Escitalopram Oxalate 10 mg 11/11/18 10:00 Lexapro - PO DAILY [facility] Sodium Chloride 250 mls @ 3,000 mls/hr 11/10/18 08:22 Normal Saline - IV 11/11/18 08:22 PRN PRN Hypotension during Dialysis Lidocaine HCl 20 ml 11/09/18 16:51 11/10/18 04:46 Xylocaine 2% Viscous Oral - MM 20 ml Q6H PRN Administration ORAL PAIN/MOUTH SORES Pantoprazole Sodium 40 mg 11/10/18 22:00 11/10/18 22:42 Protonix Iv IVPUSH 40 mg BID [facility] Administration Saliva Substitute 1 applic 11/09/18 16:49 11/09/18 23:32 Mouthkote Solution MM 1 applic Q1H PRN Administration ORAL PAIN/MOUTH SORES Sevelamer Carbonate 800 mg 11/11/18 12:00 Renvela - PO TIDCM [facility] Silver Sulfadiazine 1 applic 11/11/18 10:00 Silvadene - TP DAILY [facility] Trazodone HCl 50 mg 11/11/18 22:00 Desyrel - PO HS [facility] ASSESSMENT/PLAN: 78 yo M h/o PAD s/p revascularization of tibial arterial disease, HTN, colon CA s/p resection (25 yrs ago), afib on eliquis, UGIB, ESRD (M, W, F), renal osteodystrophy, dementia admitted to the ICU for acute on chronic hypercapnic respiratory failure, now being observed for UGIB bleed. GI: - Consulted Dr. Chew - HGB 7.5 w/ no sign of active bleed, h/o non-bleeding gastric ulcer - 2 PRBC during HD yesterday - Protonix IV 40mg BID - H/H trended upward after HD and continued this AM. Low suspicion for further active bleeding. - Awaiting further GI recommendations regarding possibility of EGD today. Neuro: - Depression / Anxiety on Lexapro 10 mg/Trazodone and xanax prn Renal: - Mild hypokalemia noted on morning labs. Replenished. CV: - Consult Dr. Arroyo - HTN on atenolol 50 mg daily, which is being held secondary to normal BP measurements - Afib w/ RVR, on atenolol, hold eliquis for possible EKG today and/or vascular procedure on Thursday - HLD on Atorvastatin 40mg HS. Vascular: - Consult Dr. Martinez, awaiting further recommendations - PAD with necrotic left second toe. Pulm / Resp: - Stable, bipap QHS PRN, on NC now - Aspiration precautions FEN: - Clear Diet - Fluid and Sodium Restriction Prophylaxis: - For DVT: None while temporarily holding apixaban Dispo: - Awaiting GI and Vascular services recommendations about possible EGD and surgical intervention. Vitals and H/H have remained stable overnight. Recommend care to be deescalated to telemetry floor for continuous pulse oximetry monitoring. Discussed with primary provider, Dr. Richardson. Eila Canchola MD, PGY1 ICU Consult Service Visit type - Emergency Visit Emergency Visit: No - New Patient This patient is new to me today: No - Critical Care Critical Care patient: Yes Total Critical Care Time (in minutes): 40 Critical Care Statement: The care of this patient involved high complexity decision making to prevent further life threatening deterioration of the patient 's condition and/or to evaluate & treat vital organ system(s) failure or risk of failure.
[2018-11-11] MEDS: PANTOPRAZOLE SODIUM 40 MG VIAL IVPUSH SCH (09:55)
[2018-11-11] MEDS: SILVER SULFADIAZINE 1% TOP CREAM 50 GM JAR TP SCH (09:56)
[2018-11-11] MEDS: ESCITALOPRAM OXALATE 10 MG TABLET (FP) PO SCH (09:56)
[2018-11-11] MEDS ORDERED: ATENOLOL 50 MG TABLET (FP) PO SCH (10:00)
[2018-11-11 11:18] LABS: ANISOCYTOSIS 1+; MACROCYTOSIS 1+; PLATELET ESTIMATE DECREASED
--- NOTE | 2018-11-11 11:50 | PN ---
Progress Note, Physician History of Present Illness: Resting on NC for acute on chronic hypercapneic respiratory failure, Hgb stable. - Current Medication List Current Medications: Active Medications Apixaban (Eliquis -) 2.5 mg PO BID [facility] Last Admin: 11/09/18 21:07 Dose: 2.5 mg Atenolol (Tenormin -) 50 mg PO DAILY [facility] Atorvastatin Calcium (Lipitor -) 40 mg PO HS [facility] Escitalopram Oxalate (Lexapro -) 10 mg PO DAILY [facility] Last Admin: 11/11/18 09:56 Dose: 10 mg Lidocaine HCl (Xylocaine 2% Viscous Oral -) 20 ml MM Q6H PRN PRN Reason: ORAL PAIN/MOUTH SORES Last Admin: 11/10/18 04:46 Dose: 20 ml Pantoprazole Sodium (Protonix Iv) 40 mg IVPUSH BID [facility] Last Admin: 11/11/18 09:55 Dose: 40 mg Saliva Substitute (Mouthkote Solution) 1 applic MM Q1H PRN PRN Reason: ORAL PAIN/MOUTH SORES Last Admin: 11/09/18 23:32 Dose: 1 applic Sevelamer Carbonate (Renvela -) 800 mg PO TIDCM [facility] Silver Sulfadiazine (Silvadene -) 1 applic TP DAILY [facility] Last Admin: 11/11/18 09:56 Dose: 1 applic Trazodone HCl (Desyrel -) [address] [facility] - Objective Vital Signs: Vital Signs Temperature 98.4 F 11/11/18 10:00 Pulse Rate 90 11/11/18 10:00 Respiratory Rate 13 11/11/18 10:00 Blood Pressure 107/67 11/11/18 10:00 O2 Sat by Pulse Oximetry (%) 98 11/11/18 09:00 Constitutional: Yes: No Distress, Calm, Thin Neck: Yes: Supple Cardiovascular: Yes: Pulse Irregular Respiratory: Yes: Regular, Diminished, On Nasal O2 Gastrointestinal: Yes: Soft, Hypoactive Bowel Sounds Edema: No Labs: CBC, BMP 11/11/18 05:30 11/11/18 05:30 INR, PTT INR 1.84 (0.83-1.09) H 11/10/18 07:51 - ....Imaging EKG: Report Reviewed (Tele: Afib) Problem List - Problems (1) ESRD needing dialysis Code(s): N18.6 - END STAGE RENAL DISEASE; Z99.2 - DEPENDENCE ON RENAL DIALYSIS (2) HTN (hypertension) Code(s): I10 - ESSENTIAL (PRIMARY) HYPERTENSION Qualifiers: Hypertension type: essential hypertension Qualified Code(s): I10 - Essential (primary) hypertension (3) Peripheral arterial disease Code(s): I73.9 - PERIPHERAL VASCULAR DISEASE, UNSPECIFIED (4) Anemia Code(s): D64.9 - ANEMIA, UNSPECIFIED Qualifiers: Anemia type: other cause Other causes of anemia: acute posthemorrhagic Qualified Code(s): D62 - Acute posthemorrhagic anemia (5) Atrial fibrillation with RVR Code(s): I48.91 - UNSPECIFIED ATRIAL FIBRILLATION (6) Gangrene of toe of left foot Code(s): I96 - GANGRENE, NOT ELSEWHERE CLASSIFIED (7) Thrombocytopenia Code(s): D69.6 - THROMBOCYTOPENIA, UNSPECIFIED Assessment/Plan 07/01/2018 Echo: Normal LV size and fxn LVEF 55-60%, normal RV size and fxn, mod LAE, mild [place], tr MR, mild-mod TR RVSP 32 mmHg 1. Acute on Chronic Hypoxic and Hypercapneic Respiratory Failure 2. Acute on Chronic Diastolic Heart Failure with subendocardial ischemic injury 3. Elevated LFTs suspect congestive hepatopathy 4. Toxic metabolic encephelopathy with underlying dementia 5. ESRD on HD 6. PAD/Gangrene s/p FILTER TANK TENDER HELPER HEAD 7. Persistent atrial fibrillation with RVR 8. Acute blood loss anemia, Thrombocytopenia 9. Colon ca s/p resection 10. Peptic ulcer disease, h/o UGI bleed PLAN: 1. HD per renal with ultrafiltration, replete K 2. BIPAP and O2 as needed 3. LFT and cardiac enzymes downtrended 4. Resume Eliquis 2.5 mg BID, Atenolol 50 mg QD once hemostasis achieved, EGD pending per GI, continue Liptor 40 mg QHS. Consider ARB as hemodynamics tolerate 5. Transfuse pRBC to maintain Hgb > 8.0, protonix 6. OOB to chair
--- NOTE | 2018-11-11 12:18 | PN ---
Teaching Attending Note Name of Resident: Elia Canchola ATTENDING PHYSICIAN STATEMENT I saw and evaluated the patient. I reviewed the resident's note and discussed the case with the resident. I agree with the resident's findings and plan as documented. SUBJECTIVE: Patient seen and examined in the ICU. No occult bleeding this AM. Denies abdominal pain. No nausea or vomiting. No CP or SOB. OBJECTIVE: Intake & Output 11/08/18 11/09/18 11/10/18 11/11/18 23:59 23:59 23:59 23:59 Intake Total 470 1050 730 40 Output Total 75 Balance 470 975 730 40 Weight 157 lb 4.8 oz 156 lb 14.4 oz Last Vital Signs Temp Pulse Resp BP Pulse Ox 98.4 F 90 13 107/67 98 11/11/18 10:00 11/11/18 10:00 11/11/18 10:00 11/11/18 10:00 11/11/18 09:00 Active Medications Apixaban (Eliquis -) 2.5 mg PO BID [facility] Last Admin: 11/09/18 21:07 Dose: 2.5 mg Atenolol (Tenormin -) 50 mg PO DAILY [facility] Atorvastatin Calcium (Lipitor -) 40 mg PO HS [facility] Escitalopram Oxalate (Lexapro -) 10 mg PO DAILY [facility] Last Admin: 11/11/18 09:56 Dose: 10 mg Lidocaine HCl (Xylocaine 2% Viscous Oral -) 20 ml MM Q6H PRN PRN Reason: ORAL PAIN/MOUTH SORES Last Admin: 11/10/18 04:46 Dose: 20 ml Pantoprazole Sodium (Protonix Iv) 40 mg IVPUSH BID [facility] Last Admin: 11/11/18 09:55 Dose: 40 mg Potassium Chloride (K-Dur -) 40 meq PO DAILY [facility] Saliva Substitute (Mouthkote Solution) 1 applic MM Q1H PRN PRN Reason: ORAL PAIN/MOUTH SORES Last Admin: 11/09/18 23:32 Dose: 1 applic Sevelamer Carbonate (Renvela -) 800 mg PO TIDCM [facility] Silver Sulfadiazine (Silvadene -) 1 applic TP DAILY [facility] Last Admin: 11/11/18 09:56 Dose: 1 applic Trazodone HCl (Desyrel -) 50 mg PO HS [facility] Gen: NAD at rest Heart: RRR Lung: decreased breath sounds at the bases Abd: soft, nontender Ext: no edema Laboratory Results - last 24 hr 11/10/18 11/10/18 11/10/18 05:30 09:27 17:30 WBC 8.2 RBC 3.01 L Hgb 9.3 L Hct 28.2 L D MCV 93.7 MCH 30.8 MCHC 32.8 RDW 19.1 H Plt Count 70 L MPV 11.3 H Absolute Neuts (auto) 5.5 Neutrophils % 67.6 Neutrophils % (Manual) Band Neutrophils % Lymphocytes % 12.2 D Lymphocytes % (Manual) Monocytes % 19.0 H Monocytes % (Manual) Eosinophils % 0.6 Eosinophils % (Manual) Basophils % 0.6 Basophils % (Manual) Myelocytes % (Man) Promyelocytes % (Man) Blast Cells % (Manual) Nucleated RBC % 0 Metamyelocytes Hypochromia 1+ Platelet Estimate Decreased Platelet Comment Present Polychromasia 2+ Poikilocytosis 2+ Basophilic Stippling Anisocytosis 2+ Microcytosis 2+ Macrocytosis 0 Spherocytes 1+ Ovalocytes 1+ Stomatocytes 1+ Sodium Potassium Chloride Carbon Dioxide Anion Gap BUN Creatinine Creat Clearance w eGFR Random Glucose Calcium Phosphorus Magnesium Blood Type A POSITIVE Antibody Screen Negative Crossmatch See Detail 11/11/18 11/11/18 05:30 05:30 WBC 7.9 RBC 2.94 L Hgb 9.2 L Hct 27.6 L MCV 94.0 MCH 31.2 MCHC 33.2 RDW 20.3 H Plt Count 68 L MPV 11.0 Absolute Neuts (auto) 4.8 Neutrophils % 61.0 Neutrophils % (Manual) 60.0 Band Neutrophils % 0.0 Lymphocytes % 17.4 D Lymphocytes % (Manual) 18.0 Monocytes % 20.4 H Monocytes % (Manual) 21 H Eosinophils % 0.8 Eosinophils % (Manual) 1.0 Basophils % 0.4 Basophils % (Manual) 0.0 Myelocytes % (Man) 0 Promyelocytes % (Man) 0 Blast Cells % (Manual) 0 Nucleated RBC % 0 Metamyelocytes 0 Hypochromia 0 Platelet Estimate Decreased Platelet Comment Polychromasia 1+ Poikilocytosis 0 Basophilic Stippling 1+ Anisocytosis 1+ Microcytosis 0 Macrocytosis 1+ Spherocytes Ovalocytes Stomatocytes Sodium 139 Potassium 3.3 L Chloride 101 Carbon Dioxide 32 Anion Gap 6 L BUN 44 H Creatinine 4.0 H Creat Clearance w eGFR 14.52 Random Glucose 93 Calcium 10.2 H Phosphorus 3.4 Magnesium 2.0 Blood Type Antibody Screen Crossmatch ASSESSMENT AND PLAN: Acute on Chronic Hypoxic and Hypercapneic Respiratory Failure improving Acute on Chronic Diastolic Heart Failure +Troponins likely Demand Ischemia Elevated LFTs suspect congestive hepatopathy GI Bleed Acute Blood Loss Anemia ESRD on HD PAD/Gangrene s/p FIBROUS PLASTERER Atrial Fibrillation Thrombocytopenia - Normal transfusion thresholds - PPI - HD per renal - hold antihypertensives - AC being held pending possible GI workup - O2 to keep SpO2 88% to 92% - NIPPV as needed to assist in work of breathing - DVT prophylaxis - 4W / 4S monitoring Dr Das
[2018-11-11] MEDS: SEVELAMER CARBONATE 800 MG TAB (FP) PO SCH ×3 (12:20→17:18)
--- NOTE | 2018-11-11 13:58 | PN.GI ---
GI Progress Note Subjective: Episodes of melena reported from yesterday Patient denies abdominal pain Has been on ASA/Plavix/Eliquis and SSRI prior to admission. No GI prophylaxis noted on admission med list. Prolonged QT interval noted today 516 Thrombocytopenia along with worsening coagulopathy - Objective Vital Signs: Vital Signs Temperature 98.4 F 11/11/18 10:00 Pulse Rate 94 H 11/11/18 12:00 Respiratory Rate 17 11/11/18 12:00 Blood Pressure 106/67 11/11/18 12:00 O2 Sat by Pulse Oximetry (%) 98 11/11/18 09:00 Constitutional: Calm Eyes: No: Sclera Icterus Cardiovascular: Yes: Pulse Irregular (regular rate) Respiratory: Yes: Diminished (at bases b/l, poor insp effort) Gastrointestinal Inspection: Yes: Scars (+ midline vertical pelvic surgical scar ). No: Distention ...Auscultate: Yes: Normoactive Bowel Sounds ...Palpate: Yes: Soft. No: Tenderness ...Rectal Exam: Yes: Other (Black stool) Neurological: Yes: Alert Labs: CBC, BMP 11/11/18 05:30 11/11/18 05:30 INR, PTT INR 1.84 (0.83-1.09) H 11/10/18 07:51 Problem List - Problems (1) GI bleed Assessment/Plan: H/H responded appropriately to transfusion however continued dark BM's Recent EGD 06/20 failed to reveal any portal hypertensive changes but a gastric ulcer was noted by Dr. Beebe Multiple rirks for UGIB including ESRD status, thrombocytopenia, worsening coagulopathy, cardiac history, SSRI use, age, NOAC use, and recent dual antiplatelet therapy leading up to admission. Discussion with Dr. Das. Feels patient high risk for procedures. Would be at high risk for attempts at hemostasis given the above. 11/09/18 PM dose was last time Eliquis was given Advise: Hold A/C Changed to PPI drip to optimize medical management Correct coaguloapthy Correct thrombocytopenia in setting of bleeding and qualitative/quantitative platelet dysfunction Ordered repeat CBC for this afternoon Deferring EGD at this point as patient needs continued optimization as above, prior to interventions Left message to discuss plan with his daughter Claudette Bear re: /HCP/goals of care in regard to endoscopic evaluation Code(s): K92.2 - GASTROINTESTINAL HEMORRHAGE, UNSPECIFIED Qualifiers: GI bleed type/associated pathology: melena Qualified Code(s): K92.1 - Melena
[2018-11-11] MEDS ORDERED: SODIUM CHLORIDE 250 ML IV PRN (14:40)
--- NOTE | 2018-11-11 14:40 | PN ---
Progress Note (short form) - Note Progress Note: Renal follow up for ESRD Pt seen and examined in the ICU awake and alert complains of shoulder discomfort had loose and dark stools yesterday s/p HD yesterday with PRBC transfusion no fever, chills, sob, abd pain, N/V Vital Signs Temperature 98.4 F 11/11/18 10:00 Pulse Rate 94 H 11/11/18 12:00 Respiratory Rate 17 11/11/18 12:00 Blood Pressure 106/67 11/11/18 12:00 O2 Sat by Pulse Oximetry (%) 98 11/11/18 09:00 Intake & Output 11/08/18 11/09/18 11/10/18 11/11/18 23:59 23:59 23:59 23:59 Intake Total 470 1050 730 40 Output Total 75 Balance 470 975 730 40 Weight 71.35 kg 71.169 kg NAD irregular, no M/R Dec BS, no overt rales No LE edema, + UE and LE cyanosis (improved) CBC, BMP 11/11/18 05:30 11/11/18 05:30 Current Medications Apixaban (Eliquis -) 2.5 mg PO BID [facility] Last Admin: 11/09/18 21:07 Dose: 2.5 mg Atenolol (Tenormin -) 50 mg PO DAILY [facility] Atorvastatin Calcium (Lipitor -) 40 mg PO HS [facility] Escitalopram Oxalate (Lexapro -) 10 mg PO DAILY [facility] Last Admin: 11/11/18 09:56 Dose: 10 mg Pantoprazole Sodium 80 mg/ (Sodium Chloride) 100 mls @ 10 mls/hr IVPB Q10H [facility] Dextrose/Lactated Ringer's (D5-Lr -) 1,000 mls @ 21 mls/hr IV [facility] Lidocaine HCl (Xylocaine 2% Viscous Oral -) 20 ml MM Q6H PRN PRN Reason: ORAL PAIN/MOUTH SORES Last Admin: 11/10/18 04:46 Dose: 20 ml Potassium Chloride (K-Dur -) 40 meq PO DAILY [facility] Saliva Substitute (Mouthkote Solution) 1 applic MM Q1H PRN PRN Reason: ORAL PAIN/MOUTH SORES Last Admin: 11/09/18 23:32 Dose: 1 applic Sevelamer Carbonate (Renvela -) 800 mg PO TIDCM [facility] Last Admin: 11/11/18 12:20 Dose: Not Given Silver Sulfadiazine (Silvadene -) 1 applic TP DAILY [facility] Last Admin: 11/11/18 09:56 Dose: 1 applic Trazodone HCl (Desyrel -) 50 mg PO HS [facility] 78 year old gentleman with hx of ESRD on HD, Colon Ca s/p resection, Afib, PVD, Dementia with recent hospital admission at [facility] for foot gangrene and PVD now presented from HD unit with AMS and hypotension. 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 Will continue high dose DARON with HD GI following, EGD is deferred continue supportive care Thank you Armen Machado DO
[2018-11-11] MEDS: DEXTROSE 5%-LACTATED RINGERS 1,000 ML IV SCH (15:08)
[2018-11-11] MEDS ORDERED: PT OWN MED DRAWER 7, Y5N ONE (16:07)
[2018-11-11 16:08] LABS: HEMATOCRIT 29.4 % (35.4-49); HEMOGLOBIN 9.5 GM/dL (11.7-16.9); MCH 30.5 pg (25.7-33.7); MCHC 32.3 g/dl (32.0-35.9); MEAN CELL VOLUME 94.4 fl (80-96); MEAN PLT VOLUME 10.7 fl (7.5-11.1); PLATELET COUNT 69 K/MM3 (134-434); RBC 3.12 M/mm3 (4.00-5.60); RDW 20.8 % (11.9-15.9)
[2018-11-11] MEDS: PANTOPRAZOLE SODIUM 80 MG in SODIUM CHLORIDE 100 ML IVPB SCH (16:09)
--- NOTE | 2018-11-11 16:35 | EKG ---
Test Reason : Blood Pressure : / mmHG Vent. Rate : 102 BPM Atrial Rate : 100 BPM P-R Int : 000 ms QRS Dur : 142 ms QT Int : 396 ms P-R-T Axes : 000 253 111 degrees QTc Int : 516 ms ATRIAL FIBRILLATION WITH RAPID VENTRICULAR RESPONSE WITH PREMATURE VENTRICULAR OR ABERRANTLY CONDUCTED COMPLEXES RIGHT SUPERIOR AXIS DEVIATION NON-SPECIFIC INTRA-VENTRICULAR CONDUCTION BLOCK CANNOT RULE OUT ANTEROSEPTAL INFARCT (CITED ON OR BEFORE 03-NOV-2018) ABNORMAL ECG WHEN COMPARED WITH ECG OF 03-NOV-2018 18:02, NONSPECIFIC T WAVE ABNORMALITY NO LONGER EVIDENT IN INFERIOR LEADS Confirmed by MENDOZA SHEPPARD MD ([id number]) on 11/11/2018 4:35:16 PM Referred By: Confirmed By:MENDOZA SHEPPARD MD
--- NOTE | 2018-11-11 17:20 | PN ---
Progress Note, Physician History of Present Illness: previous noted - Current Medication List Current Medications: Active Medications Apixaban (Eliquis -) 2.5 mg PO BID [facility] Last Admin: 11/09/18 21:07 Dose: 2.5 mg Atenolol (Tenormin -) 50 mg PO DAILY [facility] Atorvastatin Calcium (Lipitor -) 40 mg PO HS [facility] Epoetin Arsalan (Epogen -) 20,000 unit IVPUSH ONCE ONE Stop: 11/12/18 06:01 Escitalopram Oxalate (Lexapro -) 10 mg PO DAILY [facility] Last Admin: 11/11/18 09:56 Dose: 10 mg Pantoprazole Sodium 80 mg/ (Sodium Chloride) 100 mls @ 10 mls/hr IVPB Q10H [facility] Last Admin: 11/11/18 16:09 Dose: 10 mls/hr Dextrose/Lactated Ringer's (D5-Lr -) 1,000 mls @ 21 mls/hr IV ASDIR [facility] Last Admin: 11/11/18 15:08 Dose: 21 mls/hr Sodium Chloride (Normal Saline -) 250 mls @ 3,000 mls/hr IV PRN PRN PRN Reason: Hypotension during Dialysis Stop: 11/12/18 14:40 Lidocaine HCl (Xylocaine 2% Viscous Oral -) 20 ml MM Q6H PRN PRN Reason: ORAL PAIN/MOUTH SORES Last Admin: 11/10/18 04:46 Dose: 20 ml Potassium Chloride (K-Dur -) 40 meq PO DAILY [facility] Saliva Substitute (Mouthkote Solution) 1 applic MM Q1H PRN PRN Reason: ORAL PAIN/MOUTH SORES Last Admin: 11/09/18 23:32 Dose: 1 applic Sevelamer Carbonate (Renvela -) 800 mg PO TIDCM [facility] Last Admin: 11/11/18 17:18 Dose: Not Given Silver Sulfadiazine (Silvadene -) 1 applic TP DAILY [facility] Last Admin: 11/11/18 09:56 Dose: 1 applic Trazodone HCl (Desyrel -) 50 mg PO HS [facility] - Objective Vital Signs: Vital Signs Temperature 98.0 F 11/11/18 14:00 Pulse Rate 98 H 11/11/18 14:00 Respiratory Rate 16 11/11/18 14:00 Blood Pressure 126/102 H 11/11/18 14:00 O2 Sat by Pulse Oximetry (%) 98 04/11/19 09:00 Constitutional: Yes: No Distress HENT: Yes: Atraumatic Neck: Yes: Supple Cardiovascular: Yes: Regular Rate and Rhythm Respiratory: Yes: CTA Bilaterally Gastrointestinal: Yes: Normal Bowel Sounds Extremities: Yes: WNL Edema: No Peripheral Pulses WNL: Yes Neurological: Yes: Alert, Oriented Labs: CBC, BMP 11/11/18 15:00 11/11/18 05:30 INR, PTT INR 1.84 (0.83-1.09) H 11/10/18 07:51 Problem List - Problems (1) ESRD needing dialysis Assessment/Plan: on hd renal on board Code(s): N18.6 - END STAGE RENAL DISEASE; Z99.2 - DEPENDENCE ON RENAL DIALYSIS (2) HTN (hypertension) Assessment/Plan: monitor continue meds Code(s): I10 - ESSENTIAL (PRIMARY) HYPERTENSION Qualifiers: Hypertension type: essential hypertension Qualified Code(s): I10 - Essential (primary) hypertension (3) Peripheral arterial disease Assessment/Plan: dr mauricio castano saw patient Code(s): I73.9 - PERIPHERAL VASCULAR DISEASE, UNSPECIFIED (4) Sepsis Assessment/Plan: not on abx Code(s): A41.9 - SEPSIS, UNSPECIFIED ORGANISM Qualifiers: Sepsis type: sepsis due to unspecified organism Qualified Code(s): A41.9 - Sepsis, unspecified organism (5) Atrial fibrillation with RVR Code(s): I48.91 - UNSPECIFIED ATRIAL FIBRILLATION (6) GI (gastrointestinal bleed) Assessment/Plan: on iv protonix gi eval reviewed Code(s): K92.2 - GASTROINTESTINAL HEMORRHAGE, UNSPECIFIED Assessment/Plan ASSESSMENT Acute on Chronic Hypoxic and Hypercapneic Respiratory Failure Volume Overload Acute on Chronic Diastolic Heart Failure Elevated LFTs suspect congestive hepatopathy r/o Pneumonia r/o UTI ESRD on HD PAD/Gangrene Atrial Fibrillation Thrombocytopenia cc time 35 min
--- NOTE | 2018-11-11 18:01 | PN ---
Progress Note, Physician - Current Medication List Current Medications: Active Medications Apixaban (Eliquis -) 2.5 mg PO BID [facility] Last Admin: 11/09/18 21:07 Dose: 2.5 mg Atenolol (Tenormin -) 50 mg PO DAILY [facility] Atorvastatin Calcium (Lipitor -) 40 mg PO HS [facility] Epoetin Arsalan (Epogen -) 20,000 unit IVPUSH ONCE ONE Stop: 11/12/18 06:01 Escitalopram Oxalate (Lexapro -) 10 mg PO DAILY [facility] Last Admin: 11/11/18 09:56 Dose: 10 mg Pantoprazole Sodium 80 mg/ (Sodium Chloride) 100 mls @ 10 mls/hr IVPB Q10H [facility] Last Admin: 11/11/18 16:09 Dose: 10 mls/hr Dextrose/Lactated Ringer's (D5-Lr -) 1,000 mls @ 21 mls/hr IV ASDIR [facility] Last Admin: 11/11/18 15:08 Dose: 21 mls/hr Sodium Chloride (Normal Saline -) 250 mls @ 3,000 mls/hr IV PRN PRN PRN Reason: Hypotension during Dialysis Stop: 11/12/18 14:40 Lidocaine HCl (Xylocaine 2% Viscous Oral -) 20 ml MM Q6H PRN PRN Reason: ORAL PAIN/MOUTH SORES Last Admin: 11/10/18 04:46 Dose: 20 ml Potassium Chloride (K-Dur -) 40 meq PO DAILY [facility] Saliva Substitute (Mouthkote Solution) 1 applic MM Q1H PRN PRN Reason: ORAL PAIN/MOUTH SORES Last Admin: 11/09/18 23:32 Dose: 1 applic Sevelamer Carbonate (Renvela -) 800 mg PO TIDCM [facility] Last Admin: 11/11/18 17:18 Dose: Not Given Silver Sulfadiazine (Silvadene -) 1 applic TP DAILY [facility] Last Admin: 11/11/18 09:56 Dose: 1 applic Trazodone HCl (Desyrel -) 50 mg PO [facility] - Objective Vital Signs: Vital Signs Temperature 98.0 F 11/11/18 14:00 Pulse Rate 98 H 11/11/18 14:00 Respiratory Rate 16 11/11/18 14:00 Blood Pressure 126/102 H 11/11/18 14:00 O2 Sat by Pulse Oximetry (%) 98 11/11/18 09:00 Labs: CBC, BMP 11/11/18 15:00 11/11/18 05:30 INR, PTT INR 1.84 (0.83-1.09) H 11/10/18 07:51
--- NOTE | 2018-11-11 19:44 | PN ---
Progress Note (short form) - Note Progress Note: 78yo male h/o A fib on eliquis, ESRD on HD, Colon ca s/p resection, PAD, foot gangrene s/p recent LLE angioplasty presenting with weakness and altered mental status. Pt had been pending transfer to telemetry however found to have positive FOBT with drop in Hb to 7.5 from 10.6 on 11/06 (no interval CBC) Pt was noted by staff to have had a dark melanotic stool s/p EGD on 07/01/18 revealing nonbleeding antral ulcer, duodenal erosions and thickened GEJ (biopsies revealing gastritis). 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's, Other (delirium) Cardio/Vascular: Yes: CAD, HTN Renal/: Yes: Renal Failure - Past Surgical History Past Surgical History: Yes: AV Fistula/Graft - Smoking History Smoking history: Never smoked - Social History Usual Living Arrangement: Senior Care ADL: Support Services Home Medications - Allergies Allergies/Adverse Reactions: Allergies Allergy/AdvReac Type Severity Reaction Status Date / Time No Known Allergies Allergy Verified 11/01/18 13:43 - Home Medications Home Medications: Ambulatory Orders Alprazolam [Xanax] 0.5 mg PO BID PRN 08/15/16 Atenolol [Tenormin -] 50 mg PO DAILY 08/15/16 Zolpidem Tartrate [Ambien] 5 mg PO HS 08/15/16 traZODone HCL [Trazodone HCl] 50 mg PO HS 08/15/16 Docusate Sodium [Colace] 2 cap PO HS 06/30/18 Escitalopram Oxalate [Lexapro -] 10 mg PO DAILY 06/30/18 Memantine HCl [Namenda -] 5 mg PO BID 06/30/18 Polyethylene Glycol 3350 [Laxaclear] 1,700 gm PO DAILY 06/30/18 Sennosides [Senna Concentrate] 8.6 mg PO DAILY 06/30/18 Sevelamer Carbonate [Renvela -] 800 mg PO TID 06/30/18 Vit B Comp No.3/Folic/C/Biotin [Nephro-Louie Rx Tablet] 1 each PO DAILY 06/30/18 Acetaminophen [Tylenol .Regular Strength -] 650 mg PO Q6H PRN tablet 08/04/18 Aspirin Coated [Ecotrin -] 81 mg PO DAILY tablet.ec 08/04/18 Aspirin [ASA -] 81 mg PO DAILY #30 tab.chew 08/04/18 Atorvastatin Ca [Lipitor] 40 mg PO HS tablet 08/04/18 Collagenase Clostridium Hist. [Santyl -] 1 applic TP DAILY tube 08/04/18 Cinacalcet HCl [Sensipar -] 60 mg PO DAILY 11/01/18 Clopidogrel Bisulfate [Plavix] 75 mg PO DAILY 11/01/18 Oxycodone HCl/Acetaminophen [Percocet 5-325 mg Tablet] 1 tab PO TID PRN Physical Exam-GI Vital Signs: AFVSS Cor: RSR, No murmurs, No gallops Lungs: Clear to P&A Abd: Soft, Normal bowel sounds, No organomegaly Ext:No significant edema Labs/meds reviewed Assessment/Plan 78yo male h/o A fib on eliquis, ESRD on HD, Colon ca s/p resection, PAD, foot gangrene s/p recent LLE angioplasty presenting with weakness and AMS asked to evaluate for acute anemia. No overt bleeding, brown stool on exam. Prior EGD in 06/2018 for melena revealing non-bleeding antral ulcer. Thrombocytopenia: chronic noted since 2017 ? liver disease ? ITP ?mds check u/s liver/spleen transfuse 2 units monodonor platelets if actively bleeding asa/plavix/eliquis on hold
[2018-11-11] MEDS: traZODone HCL 50 MG TABLET (FP) PO SCH (21:47)
[2018-11-11] MEDS: ATORVASTATIN CA 40 MG TABLET (FP) PO SCH (21:47)
[2018-11-12] MEDS ORDERED: INSULIN (NOVOLOG) ASPART 100 UNITS/ML 10ML VIAL ONE (00:28)
[2018-11-12] MEDS: PANTOPRAZOLE SODIUM 80 MG in SODIUM CHLORIDE 100 ML IVPB SCH ×3 (01:20→21:55)
[2018-11-12 07:39] LABS: BASO % 1.1 % (0-2.0); EOS % 1.1 % (0-4.5); HEMATOCRIT 28.7 % (35.4-49); HEMOGLOBIN 9.3 GM/dL (11.7-16.9); LYMPH % 16.9 % (8-40); MCH 30.2 pg (25.7-33.7); MCHC 32.4 g/dl (32.0-35.9); MEAN CELL VOLUME 93.2 fl (80-96); MEAN PLT VOLUME 10.5 fl (7.5-11.1); MONO % 17.7 % (3.8-10.2); NEUT % 63.2 % (42.8-82.8); PLATELET COUNT 74 K/MM3 (134-434); RBC 3.08 M/mm3 (4.00-5.60); RDW 21.1 % (11.9-15.9); WHITE BLOOD COUNT 7.2 K/mm3 (4.0-10.0)
[2018-11-12 07:45] LABS: ANION GAP 8 MMOL/L (8-16); BLOOD UREA NITROGEN 55 mg/dL (7-18); CALCIUM 10.8 mg/dL (8.5-10.1); CHLORIDE 102 mmol/L (98-107); CO2 30 mmol/L (21-32); CREATININE 5.4 mg/dL (0.55-1.3); GLUCOSE,RANDOM 100 mg/dL (74-106); MAGNESIUM 2.2 mg/dL (1.8-2.4); PHOSPHOROUS 4.8 mg/dL (2.5-4.9); POTASSIUM 3.8 mmol/L (3.5-5.1); SODIUM 140 mmol/L (136-145)
[2018-11-12] MEDS ORDERED: EPOETIN ALFA 20,000 UNIT/1 ML VIAL IVPUSH ONE (08:15)
[2018-11-12] MEDS ORDERED: POTASSIUM CHLORIDE TABS 20 MEQ TABLET.ER (FP) PO SCH (10:00)
[2018-11-12] MEDS: APIXABAN 2.5 MG TABLET PO SCH ×2 (10:14→10:23)
[2018-11-12] MEDS: ESCITALOPRAM OXALATE 10 MG TABLET (FP) PO SCH (10:14)
[2018-11-12] MEDS: SEVELAMER CARBONATE 800 MG TAB (FP) PO SCH ×3 (10:15→17:46)
--- NOTE | 2018-11-12 10:18 | PN.GI ---
GI Progress Note Subjective: No overt bleeding overnight H/H stable - Objective Vital Signs: Vital Signs Temperature 98.1 F 11/12/18 07:00 Pulse Rate 96 H 11/12/18 08:35 Respiratory Rate 22 H 11/12/18 08:35 Blood Pressure 99/87 11/12/18 08:35 O2 Sat by Pulse Oximetry (%) 96 11/12/18 08:31 Constitutional: Calm Eyes: No: Sclera Icterus Cardiovascular: Yes: Pulse Irregular Respiratory: Yes: Diminished (at bases with poor insp effort) Gastrointestinal Inspection: No: Distention ...Auscultate: Yes: Normoactive Bowel Sounds ...Palpate: Yes: Soft. No: Hepatomegaly, Splenomegaly, Tenderness ...Percussion: No: Tympanitic Edema: No (No LE edema) Neurological: Yes: Alert Labs: CBC, BMP 11/12/18 07:10 11/12/18 07:10 INR, PTT INR 1.84 (0.83-1.09) H 11/10/18 07:51 Hepatic Panel Total Bilirubin 1.0 mg/dL (0.2-1) 11/06/18 05:30 AST 35 U/L (15-37) 11/06/18 05:30 ALT 51 U/L (13-61) 11/06/18 05:30 Alkaline Phosphatase 123 U/L (45-117) H 11/06/18 05:30 Albumin 2.9 g/dl (3.4-5.0) L 11/06/18 05:30 Problem List - Problems (1) GI bleed Assessment/Plan: Had d/w HCP / daughter Claudette Bear. She is concerned regarding her father undergoing anesthesia and has reservations about EGD. I explained his H/H remains stable. Can attempt conservative measures through continued PPI therapy. holding A/C, correcting coagulopathy. If signs of continued bleeding, will need to revisit need for endoscopic intervention ordered repeat coags for today Code(s): K92.2 - GASTROINTESTINAL HEMORRHAGE, UNSPECIFIED Qualifiers: GI bleed type/associated pathology: melena Qualified Code(s): K92.1 - Melena
[2018-11-12] MEDS: SILVER SULFADIAZINE 1% TOP CREAM 50 GM JAR TP SCH (10:19)
[2018-11-12 10:53] LABS: INR 1.42 (0.83-1.09); PROTHROMBIN TIME (PATIENT) 16.8 SEC (9.7-13.0)
--- NOTE | 2018-11-12 10:58 | PN ---
Teaching Attending Note Name of Resident: Elia Canchola ATTENDING PHYSICIAN STATEMENT I saw and evaluated the patient. I reviewed the resident's note and discussed the case with the resident. I agree with the resident's findings and plan as documented. SUBJECTIVE: Patient seen and examined in the ICU. No occult bleeding overnight. Denies abdominal pain. No nausea or vomiting. No CP or SOB. OBJECTIVE: Intake & Output 11/09/18 11/10/18 11/11/18 11/12/18 23:59 23:59 23:59 23:59 Intake Total 1050 730 190 504 Output Total 75 Balance 975 730 190 504 Weight 157 lb 4.8 oz 156 lb 14.4 oz 160 lb 11.472 oz Last Vital Signs Temp Pulse Resp BP Pulse Ox 98.1 F 84 23 H 110/66 96 11/12/18 07:00 11/12/18 10:53 11/12/18 10:53 11/12/18 10:53 11/12/18 08:31 Active Medications Apixaban (Eliquis -) 2.5 mg PO BID [facility] Last Admin: 11/12/18 10:23 Dose: Not Given Atenolol (Tenormin -) 50 mg PO DAILY [facility] Atorvastatin Calcium (Lipitor -) 40 mg PO HS [facility] Last Admin: 11/11/18 21:47 Dose: 40 mg Escitalopram Oxalate (Lexapro -) 10 mg PO DAILY [facility] Last Admin: 11/12/18 10:14 Dose: 10 mg Pantoprazole Sodium 80 mg/ (Sodium Chloride) 100 mls @ 10 mls/hr IVPB Q10H [facility] Last Admin: 11/12/18 10:16 Dose: 10 mls/hr Dextrose/Lactated Ringer's (D5-Lr -) 1,000 mls @ 21 mls/hr IV ASDIR [facility] Last Admin: 11/11/18 15:08 Dose: 21 mls/hr Sodium Chloride (Normal Saline -) 250 mls @ 3,000 mls/hr IV PRN PRN PRN Reason: Hypotension during Dialysis Stop: 11/12/18 14:40 Lidocaine HCl (Xylocaine 2% Viscous Oral -) 20 ml MM Q6H PRN PRN Reason: ORAL PAIN/MOUTH SORES Last Admin: 11/10/18 04:46 Dose: 20 ml Potassium Chloride (K-Dur -) 40 meq PO DAILY [facility] Last Admin: 11/12/18 10:14 Dose: 40 meq Saliva Substitute (Mouthkote Solution) 1 applic MM Q1H PRN PRN Reason: ORAL PAIN/MOUTH SORES Last Admin: 11/09/18 23:32 Dose: 1 applic Sevelamer Carbonate (Renvela -) 800 mg PO TIDCM [facility] Last Admin: 11/12/18 10:15 Dose: 800 mg Silver Sulfadiazine (Silvadene -) 1 applic TP DAILY [facility] Last Admin: 11/12/18 10:19 Dose: 1 applic Trazodone HCl (Desyrel -) 50 mg PO HS [facility] Last Admin: 11/11/18 21:47 Dose: 50 mg Gen: NAD at rest Heart: RRR Lung: decreased breath sounds at the bases Abd: soft, nontender Ext: no edema Laboratory Results - last 24 hr 11/11/18 11/11/18 11/12/18 05:30 15:00 07:10 WBC 9.0 7.2 RBC 3.12 L 3.08 L Hgb 9.5 L 9.3 L Hct 29.4 L 28.7 L MCV 94.4 93.2 MCH 30.5 30.2 MCHC 32.3 32.4 RDW 20.8 H 21.1 H Plt Count 69 L 74 L MPV 10.7 10.5 Absolute Neuts (auto) 4.6 Neutrophils % 63.2 Neutrophils % (Manual) 60.0 Band Neutrophils % 0.0 Lymphocytes % 16.9 Lymphocytes % (Manual) 18.0 Monocytes % 17.7 H Monocytes % (Manual) 21 H Eosinophils % 1.1 Eosinophils % (Manual) 1.0 Basophils % 1.1 Basophils % (Manual) 0.0 Myelocytes % (Man) 0 Promyelocytes % (Man) 0 Blast Cells % (Manual) 0 Nucleated RBC % 0 Metamyelocytes 0 Hypochromia 0 Platelet Estimate Decreased Polychromasia 1+ Poikilocytosis 0 Basophilic Stippling 1+ Anisocytosis 1+ Microcytosis 0 Macrocytosis 1+ PT with INR INR Sodium Potassium Chloride Carbon Dioxide Anion Gap BUN Creatinine Creat Clearance w eGFR Random Glucose Calcium Phosphorus Magnesium 11/12/18 11/12/18 07:10 10:20 WBC RBC Hgb Hct MCV MCH MCHC RDW Plt Count MPV Absolute Neuts (auto) Neutrophils % Neutrophils % (Manual) Band Neutrophils % Lymphocytes % Lymphocytes % (Manual) Monocytes % Monocytes % (Manual) Eosinophils % Eosinophils % (Manual) Basophils % Basophils % (Manual) Myelocytes % (Man) Promyelocytes % (Man) Blast Cells % (Manual) Nucleated RBC % Metamyelocytes Hypochromia Platelet Estimate Polychromasia Poikilocytosis Basophilic Stippling Anisocytosis Microcytosis Macrocytosis PT with INR 16.80 H INR 1.42 H Sodium 140 Potassium 3.8 Chloride 102 Carbon Dioxide 30 Anion Gap 8 BUN 55 H Creatinine 5.4 H Creat Clearance w eGFR 10.27 Random Glucose 100 Calcium 10.8 H Phosphorus 4.8 Magnesium 2.2 ASSESSMENT AND PLAN: Acute on Chronic Hypoxic and Hypercapneic Respiratory Failure improving Acute on Chronic Diastolic Heart Failure +Troponins likely Demand Ischemia Elevated LFTs suspect congestive hepatopathy GI Bleed Acute Blood Loss Anemia ESRD on HD PAD/Gangrene s/p SALES 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
--- NOTE | 2018-11-12 11:01 | PN ---
Progress Note, Physician History of Present Illness: Resting on NC for acute on chronic hypercapneic respiratory failure, Hgb stable , no further bleeding. - Current Medication List Current Medications: Active Medications Apixaban (Eliquis -) 2.5 mg PO BID [facility] Last Admin: 11/12/18 10:23 Dose: Not Given Atenolol (Tenormin -) 50 mg PO DAILY [facility] Atorvastatin Calcium (Lipitor -) 40 mg PO HS [facility] Last Admin: 11/11/18 21:47 Dose: 40 mg Escitalopram Oxalate (Lexapro -) 10 mg PO DAILY [facility] Last Admin: 11/12/18 10:14 Dose: 10 mg Pantoprazole Sodium 80 mg/ (Sodium Chloride) 100 mls @ 10 mls/hr IVPB Q10H [facility] Last Admin: 11/12/18 10:16 Dose: 10 mls/hr Dextrose/Lactated Ringer's (D5-Lr -) 1,000 mls @ 21 mls/hr IV ASDIR [facility] Last Admin: 11/11/18 15:08 Dose: 21 mls/hr Sodium Chloride (Normal Saline -) 250 mls @ 3,000 mls/hr IV PRN PRN PRN Reason: Hypotension during Dialysis Stop: 11/12/18 14:40 Lidocaine HCl (Xylocaine 2% Viscous Oral -) 20 ml MM Q6H PRN PRN Reason: ORAL PAIN/MOUTH SORES Last Admin: 11/10/18 04:46 Dose: 20 ml Potassium Chloride (K-Dur -) 40 meq PO DAILY [facility] Last Admin: 11/12/18 10:14 Dose: 40 meq Saliva Substitute (Mouthkote Solution) 1 applic MM Q1H PRN PRN Reason: ORAL PAIN/MOUTH SORES Last Admin: 11/09/18 23:32 Dose: 1 applic Sevelamer Carbonate (Renvela -) 800 mg PO TIDCM [facility] Last Admin: 11/12/18 10:15 Dose: 800 mg Silver Sulfadiazine (Silvadene -) 1 applic TP DAILY [facility] Last Admin: 11/12/18 10:19 Dose: 1 applic Trazodone HCl (Desyrel -) 50 mg PO HS [facility] Last Admin: 11/11/18 21:47 Dose: 50 mg - Objective Vital Signs: Vital Signs Temperature 98.1 F 11/12/18 07:00 Pulse Rate 84 11/12/18 10:53 Respiratory Rate 23 H 11/12/18 10:53 Blood Pressure 110/66 11/12/18 10:53 O2 Sat by Pulse Oximetry (%) 96 11/12/18 08:31 Constitutional: Yes: No Distress, Calm, Thin Neck: Yes: Supple Cardiovascular: Yes: Pulse Irregular Respiratory: Yes: Regular, Diminished Gastrointestinal: Yes: Soft, Hypoactive Bowel Sounds Edema: No Labs: CBC, BMP 11/12/18 07:10 11/12/18 07:10 INR, PTT INR 1.42 (0.83-1.09) H 11/12/18 10:20 - ....Imaging EKG: Report Reviewed (Tele: Afib) Problem List - Problems (1) ESRD needing dialysis Code(s): N18.6 - END STAGE RENAL DISEASE; Z99.2 - DEPENDENCE ON RENAL DIALYSIS (2) HTN (hypertension) Code(s): I10 - ESSENTIAL (PRIMARY) HYPERTENSION Qualifiers: Hypertension type: essential hypertension Qualified Code(s): I10 - Essential (primary) hypertension (3) Peripheral arterial disease Code(s): I73.9 - PERIPHERAL VASCULAR DISEASE, UNSPECIFIED (4) Anemia Code(s): D64.9 - ANEMIA, UNSPECIFIED Qualifiers: Anemia type: other cause Other causes of anemia: acute posthemorrhagic Qualified Code(s): D62 - Acute posthemorrhagic anemia (5) Atrial fibrillation with RVR Code(s): I48.91 - UNSPECIFIED ATRIAL FIBRILLATION (6) Gangrene of toe of left foot Code(s): I96 - GANGRENE, NOT ELSEWHERE CLASSIFIED (7) Thrombocytopenia Code(s): D69.6 - THROMBOCYTOPENIA, UNSPECIFIED Assessment/Plan 07/01/2018 Echo: Normal LV size and fxn LVEF 55-60%, normal RV size and fxn, mod LAE, mild [place], tr MR, mild-mod TR RVSP 32 mmHg 1. Acute on Chronic Hypoxic and Hypercapneic Respiratory Failure 2. Acute on Chronic Diastolic Heart Failure with subendocardial ischemic injury 3. Elevated LFTs suspect congestive hepatopathy 4. Toxic metabolic encephelopathy with underlying dementia 5. ESRD on HD 6. 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 Persistent atrial fibrillation with RVR not on A/C due to GI bleed 8. Acute blood loss anemia, Thrombocytopenia 9. Colon ca s/p resection 10. Peptic ulcer disease, h/o UGI bleed PLAN: 1. HD per renal with ultrafiltration, replete K 2. BIPAP and O2 as needed 3. LFT and cardiac enzymes downtrended 4. Eliquis 2.5 mg BID held per GI recommendations and at high risk for EGD, resumed Atenolol 50 mg QD once hemostasis achieved, continue Liptor 40 mg QHS. Consider ARB as hemodynamics tolerate, Watchman OLGA exclusion as outpatient 5. Transfuse pRBC to maintain Hgb > 8.0, continue protonix 6. OOB to chair
--- NOTE | 2018-11-12 13:09 | PN ---
Progress Note (short form) - Note Progress Note: Renal follow up for ESRD Pt seen and examined in the ICU awake and alert feels uncomfortable but not in pain. No sob, Abd pain, N/V/D. Vital Signs Temperature 98.1 F 11/12/18 07:00 Pulse Rate 84 11/12/18 10:53 Respiratory Rate 23 H 11/12/18 10:53 Blood Pressure 110/66 11/12/18 10:53 O2 Sat by Pulse Oximetry (%) 96 11/12/18 08:31 Intake & Output 11/09/18 11/10/18 11/11/18 11/12/18 23:59 23:59 23:59 23:59 Intake Total 1050 730 190 504 Output Total 75 Balance 975 730 190 504 Weight 71.35 kg 71.169 kg 72.9 kg NAD irregular, no M/R Dec BS, no overt rales No LE edema, + UE and LE cyanosis (improved) CBC, BMP 11/12/18 07:10 11/12/18 07:10 Current Medications Acetaminophen (Tylenol Oral Solution -) 650 mg PO Q6H PRN PRN Reason: Pain Apixaban (Eliquis -) 2.5 mg PO BID [facility] Last Admin: 11/12/18 10:23 Dose: Not Given Atenolol (Tenormin -) 50 mg PO DAILY [facility] Atorvastatin Calcium (Lipitor -) 40 mg PO HS [facility] Last Admin: 11/11/18 21:47 Dose: 40 mg Escitalopram Oxalate (Lexapro -) 10 mg PO DAILY [facility] Last Admin: 11/12/18 10:14 Dose: 10 mg Pantoprazole Sodium 80 mg/ (Sodium Chloride) 100 mls @ 10 mls/hr IVPB Q10H [facility] Last Admin: 11/12/18 10:16 Dose: 10 mls/hr Dextrose/Lactated Ringer's (D5-Lr -) 1,000 mls @ 21 mls/hr IV ASDIR [facility] Last Admin: 11/11/18 15:08 Dose: 21 mls/hr Sodium Chloride (Normal Saline -) 250 mls @ 3,000 mls/hr IV PRN PRN PRN Reason: Hypotension during Dialysis Stop: 11/12/18 14:40 Lidocaine HCl (Xylocaine 2% Viscous Oral -) 20 ml MM Q6H PRN PRN Reason: ORAL PAIN/MOUTH SORES Last Admin: 11/10/18 04:46 Dose: 20 ml Potassium Chloride (K-Dur -) 40 meq PO DAILY [facility] Last Admin: 11/12/18 10:14 Dose: 40 meq Saliva Substitute (Mouthkote Solution) 1 applic MM Q1H PRN PRN Reason: ORAL PAIN/MOUTH SORES Last Admin: 11/09/18 23:32 Dose: 1 applic Sevelamer Carbonate (Renvela -) 800 mg PO TIDCM [facility] Last Admin: 11/12/18 12:37 Dose: 800 mg Silver Sulfadiazine (Silvadene -) 1 applic TP DAILY [facility] Last Admin: 11/12/18 10:19 Dose: 1 applic Trazodone HCl (Desyrel -) 50 mg PO HS [facility] Last Admin: 11/11/18 21:47 Dose: 50 mg 78 year old gentleman with hx of ESRD on HD, Colon Ca s/p resection, Afib, PVD, Dementia with recent hospital admission at [facility] for foot gangrene and PVD now presented from HD unit with AMS and hypotension. #ESRD on HD #Fluid overload with respiratory failure #CHF/Diastolic HF #PVD/LE gangrene #Thrombocytopenia #Anemia #Hyponatremia s/p dialysis this am, tolerated it well with UF of 3L acheived clincially stable and volume status improved continue supportive care fluid restriction of 1.2L daily, low salt diet next dialysis planned for Thursday. Thank you Armen Machado DO
--- NOTE | 2018-11-12 14:24 | PN ---
Physical Exam: SUBJECTIVE: Patient seen and examined HD# 11 Overnight Events: No acute events overnight. Pt continues to report pain to both feet at the site of wounds as well as hunger. Denies chest pain, SOB, or abdominal pain. OBJECTIVE: Lines: - PIV Drains: - None Supplemental Oxygen: Nasal Cannula @ 3 LPM I/Os not strictly monitored. Vital Signs Period Temp Pulse Resp BP Sys/[place] Pulse Ox Last 24 Hr 98.1 F-98.4 F 79-101 16-27 99-138/52-101 95-96 Physical Exams: GENERAL: The patient is awake, alert, and oriented to person and place. Asks repeated questions. HEAD: Normal with no signs of trauma. EYES: Conjunctiva pink and not injected. NECK: Trachea midline, full range of motion, supple. LUNGS: Nasal cannula in place. Breath sounds equal, clear to auscultation bilaterally, no wheezes, no crackles, no accessory muscle use. HEART: Irregularly irregular rate and rhythm, S1, S2 without murmur, rub or gallop. ABDOMEN: Soft, nontender, nondistended EXTREMITIES: 2+ pulses, warm, well-perfused, no edema. Clean and dry bandages to both feet. PSYCH: Normal mood, normal affect. SKIN: [place], warm, and dry Laboratory Results - last 24 hr 11/11/18 11/12/18 11/12/18 15:00 07:10 07:10 WBC 9.0 7.2 RBC 3.12 L 3.08 L Hgb 9.5 L 9.3 L Hct 29.4 L 28.7 L MCV 94.4 93.2 MCH 30.5 30.2 MCHC 32.3 32.4 RDW 20.8 H 21.1 H Plt Count 69 L 74 L MPV 10.7 10.5 Absolute Neuts (auto) 4.6 Neutrophils % 63.2 Lymphocytes % 16.9 Monocytes % 17.7 H Eosinophils % 1.1 Basophils % 1.1 Nucleated RBC % 0 PT with INR INR Sodium 140 Potassium 3.8 Chloride 102 Carbon Dioxide 30 Anion Gap 8 BUN 55 H Creatinine 5.4 H Creat Clearance w eGFR 10.27 Random Glucose 100 Calcium 10.8 H Phosphorus 4.8 Magnesium 2.2 11/12/18 10:20 WBC RBC Hgb Hct MCV MCH MCHC RDW Plt Count MPV Absolute Neuts (auto) Neutrophils % Lymphocytes % Monocytes % Eosinophils % Basophils % Nucleated RBC % PT with INR 16.80 H INR 1.42 H Sodium Potassium Chloride Carbon Dioxide Anion Gap BUN Creatinine Creat Clearance w eGFR Random Glucose Calcium Phosphorus Magnesium Active Medications Generic Name Dose Route Start Last Admin Trade Name Freq PRN Reason Stop Dose Admin Acetaminophen 650 mg 11/12/18 11:19 Tylenol Oral Solution - PO Q6H PRN Pain Apixaban 2.5 mg 11/09/18 10:00 11/12/18 10:23 Eliquis - PO Not Given BID [facility] Atenolol 50 mg 11/11/18 10:00 Tenormin - PO DAILY [facility] Atorvastatin Calcium 40 mg 11/11/18 22:00 11/11/18 21:47 Lipitor - PO 40 mg HS [facility] Administration Escitalopram Oxalate 10 mg 11/11/18 10:00 11/12/18 10:14 Lexapro - PO 10 mg DAILY [facility] Administration Pantoprazole Sodium 80 mg/ 100 mls @ 10 mls/hr 11/11/18 14:00 11/12/18 10:16 Sodium Chloride IVPB 10 mls/hr Q10H [facility] Administration 8 MG/HR Dextrose/Lactated Ringer's 1,000 mls @ 21 mls/hr 11/11/18 14:45 11/11/18 15: 08 D5-Lr - IV 21 mls/hr ASDIR [facility] Administration Sodium Chloride 250 mls @ 3,000 mls/hr 11/11/18 14:40 Normal Saline - IV 11/12/18 14:40 PRN PRN Hypotension during Dialysis Lidocaine HCl 20 ml 11/09/18 16:51 11/10/18 04:46 Xylocaine 2% Viscous Oral - MM 20 ml Q6H PRN Administration ORAL PAIN/MOUTH SORES Potassium Chloride 40 meq 11/12/18 10:00 11/12/18 10:14 K-Dur - PO 40 meq DAILY [facility] Administration Saliva Substitute 1 applic 11/09/18 16:49 11/09/18 23:32 Mouthkote Solution MM 1 applic Q1H PRN Administration ORAL PAIN/MOUTH SORES Sevelamer Carbonate 800 mg 11/11/18 12:00 11/12/18 12:37 Renvela - PO 800 mg TIDCM [facility] Administration Silver Sulfadiazine 1 applic 11/11/18 10:00 11/12/18 10:19 Silvadene - TP 1 applic DAILY [facility] Administration Trazodone HCl 50 mg 11/11/18 22:00 11/11/18 21:47 Desyrel - PO 50 mg HS [facility] Administration ASSESSMENT/PLAN: 78 yo M h/o PAD s/p revascularization of tibial arterial disease, HTN, colon CA s/p resection (25 yrs ago), afib on eliquis, UGIB, ESRD (M, W, F), renal osteodystrophy, dementia admitted to the ICU for acute on chronic hypercapnic respiratory failure, now being observed for UGIB bleed. GI: - Consulted Dr. Chew / Dr. Kong - H/H remains stable this morning when trended with last two measurements. Low suspicion for continued bleeding. - Protonix IV 40mg BID - Dr. Carreon consultation note indicates EGD will be deferred at this time given risks. Still requests holding of Apixaban. Neuro: - Depression / Anxiety on Lexapro 10 mg/Trazodone and xanax prn Renal: - HD performed this morning without complication. Will continue to trend electrolytes. CV: - Consult Dr. Arroyo - HTN on atenolol 50 mg daily, which is being held secondary to normal BP measurements. Will need to be renally dosed when continued. - Afib w/ RVR, on atenolol, Apixaban still being held at recommendation of GI consult - HLD on Atorvastatin 40mg HS. Vascular: - Consult Dr. Martinez - PAD with necrotic left second toe. No signs/symptoms of systemic infection. - Dr. Martinez reportedly told pts RN that he would not consider surgery until possibly Thursday at the earliest. Awaiting progress note. Pulm / Resp: - Stable, bipap QHS PRN, on NC now - Aspiration precautions FEN: - Will advance to clear diet - Fluid and Sodium Restriction Prophylaxis: - For DVT: None while temporarily holding apixaban Dispo: - Recommend care to be deescalated to telemetry floor for continuous pulse oximetry monitoring versus discharge home. Will discuss with pts primary provider, Dr. Richardson. Elia Canchola MD, PGY1 ICU Consult Service Visit type - Emergency Visit Emergency Visit: No - New Patient This patient is new to me today: No - Critical Care Critical Care patient: Yes Total Critical Care Time (in minutes): 39 Critical Care Statement: The care of this patient involved high complexity decision making to prevent further life threatening deterioration of the patient 's condition and/or to evaluate & treat vital organ system(s) failure or risk of failure.
--- NOTE | 2018-11-12 15:48 | PN ---
Progress Note (short form) - Note Progress Note: Mr. Centeno appears improved, no longer requiring Bipap. Left 2nd toe demarcated. I will schedule for amputation after the weekend.
--- NOTE | 2018-11-12 15:55 | PN ---
Progress Note, Physician - Current Medication List Current Medications: Active Medications Acetaminophen (Tylenol Oral Solution -) 650 mg PO Q6H PRN PRN Reason: Pain Apixaban (Eliquis -) 2.5 mg PO BID [facility] Last Admin: 11/12/18 10:23 Dose: Not Given Atenolol (Tenormin -) 50 mg PO DAILY [facility] Atorvastatin Calcium (Lipitor -) 40 mg PO HS [facility] Last Admin: 11/11/18 21:47 Dose: 40 mg Escitalopram Oxalate (Lexapro -) 10 mg PO DAILY [facility] Last Admin: 11/12/18 10:14 Dose: 10 mg Pantoprazole Sodium 80 mg/ (Sodium Chloride) 100 mls @ 10 mls/hr IVPB Q10H [facility] Last Admin: 11/12/18 10:16 Dose: 10 mls/hr Dextrose/Lactated Ringer's (D5-Lr -) 1,000 mls @ 21 mls/hr IV ASDIR [facility] Last Admin: 11/11/18 15:08 Dose: 21 mls/hr Lidocaine HCl (Xylocaine 2% Viscous Oral -) 20 ml MM Q6H PRN PRN Reason: ORAL PAIN/MOUTH SORES Last Admin: 11/10/18 04:46 Dose: 20 ml Potassium Chloride (K-Dur -) 40 meq PO DAILY [facility] Last Admin: 11/12/18 10:14 Dose: 40 meq Saliva Substitute (Mouthkote Solution) 1 applic MM Q1H PRN PRN Reason: ORAL PAIN/MOUTH SORES Last Admin: 11/09/18 23:32 Dose: 1 applic Sevelamer Carbonate (Renvela -) 800 mg PO TIDCM [facility] Last Admin: 11/12/18 12:37 Dose: 800 mg Silver Sulfadiazine (Silvadene -) 1 applic TP DAILY [facility] Last Admin: 11/12/18 10:19 Dose: 1 applic Trazodone HCl (Desyrel -) 50 mg PO HS [facility] Last Admin: 11/11/18 21:47 Dose: 50 mg - Objective Vital Signs: Vital Signs Temperature 98.1 F 11/12/18 07:00 Pulse Rate 95 H 11/12/18 12:00 Respiratory Rate 18 11/12/18 12:00 Blood Pressure 125/52 L 11/12/18 12:00 O2 Sat by Pulse Oximetry (%) 96 11/12/18 11:00 Labs: CBC, BMP 11/12/18 07:10 11/12/18 07:10 INR, PTT INR 1.42 (0.83-1.09) H 11/12/18 10:20
--- NOTE | 2018-11-12 17:26 | PN ---
Physical Exam: SUBJECTIVE: Patient seen and examined at bedside. No acute events overnight. Sees people in the room that are not there. Explained to pt it was the pillow he was looking at and he seemed to understand (possible visual impairment?) OBJECTIVE: Vital Signs Temperature 98.1 F 11/12/18 07:00 Pulse Rate 95 H 11/12/18 12:00 Respiratory Rate 18 11/12/18 12:00 Blood Pressure 125/52 L 11/12/18 12:00 O2 Sat by Pulse Oximetry (%) 96 11/12/18 11:00 GENERAL: The patient is awake, alert, and oriented to person and place. HEAD: Normal with no signs of trauma. EYES: EOMI NECK: Trachea midline LUNGS: Auscultated anteriorly. Breath sounds equal, clear to auscultation bilaterally, no wheezes, no crackles, no accessory muscle use. HEART: Irregularly irregular. ABDOMEN: Soft, nontender EXTREMITIES: bandages on b/l LE. PSYCH: Normal mood, normal affect. SKIN: warm, and dry Laboratory Results - last 24 hr 11/12/18 11/12/18 11/12/18 07:10 07:10 10:20 WBC 7.2 RBC 3.08 L Hgb 9.3 L Hct 28.7 L MCV 93.2 MCH 30.2 MCHC 32.4 RDW 21.1 H Plt Count 74 L MPV 10.5 Absolute Neuts (auto) 4.6 Neutrophils % 63.2 Lymphocytes % 16.9 Monocytes % 17.7 H Eosinophils % 1.1 Basophils % 1.1 Nucleated RBC % 0 PT with INR 16.80 H INR 1.42 H Sodium 140 Potassium 3.8 Chloride 102 Carbon Dioxide 30 Anion Gap 8 BUN 55 H Creatinine 5.4 H Creat Clearance w eGFR 10.27 Random Glucose 100 Calcium 10.8 H Phosphorus 4.8 Magnesium 2.2 Active Medications Generic Name Dose Route Start Last Admin Trade Name Freq PRN Reason Stop Dose Admin Acetaminophen 650 mg 11/12/18 11:19 Tylenol Oral Solution - PO Q6H PRN Pain Apixaban 2.5 mg 11/09/18 10:00 11/12/18 10:23 Eliquis - PO Not Given BID [facility] Atenolol 50 mg 11/11/18 10:00 Tenormin - PO DAILY [facility] Atorvastatin Calcium 40 mg 11/11/18 22:00 11/11/18 21:47 Lipitor - PO 40 mg HS [facility] Administration Escitalopram Oxalate 10 mg 11/11/18 10:00 11/12/18 10:14 Lexapro - PO 10 mg DAILY [facility] Administration Pantoprazole Sodium 80 mg/ 100 mls @ 10 mls/hr 11/11/18 14:00 11/12/18 10:16 Sodium Chloride IVPB 10 mls/hr Q10H [facility] Administration 8 MG/HR Dextrose/Lactated Ringer's 1,000 mls @ 21 mls/hr 11/11/18 14:45 11/11/18 15: 08 D5-Lr - IV 21 mls/hr ASDIR [facility] Administration Lidocaine HCl 20 ml 11/09/18 16:51 11/10/18 04:46 Xylocaine 2% Viscous Oral - MM 20 ml Q6H PRN Administration ORAL PAIN/MOUTH SORES Potassium Chloride 40 meq 11/12/18 10:00 11/12/18 10:14 K-Dur - PO 40 meq DAILY [facility] Administration Saliva Substitute 1 applic 11/09/18 16:49 11/09/18 23:32 Mouthkote Solution MM 1 applic Q1H PRN Administration ORAL PAIN/MOUTH SORES Sevelamer Carbonate 800 mg 11/11/18 12:00 11/12/18 12:37 Renvela - PO 800 mg TIDCM [facility] Administration Silver Sulfadiazine 1 applic 11/11/18 10:00 11/12/18 10:19 Silvadene - TP 1 applic DAILY [facility] Administration Trazodone HCl 50 mg 11/11/18 22:00 11/11/18 21:47 Desyrel - PO 50 mg HS MARCUS Administration ASSESSMENT/PLAN: 78M with past medical history of PAD s/p revascularization of tibial arterial disease, HTN, colon CA s/p resection (25 yrs ago), afib (on coumadin) hx of GIB , ESRD (M, W, F), renal osteodystrophy, dementia from [facility] presented to the ED on 11/01/18 for evaluation of altered mental status admitted in ICU for Acute respiratory distress with cyanosis. Heme consulted for coagulopathy. Thrombocytopenia -Likely secondary to infection vs liver pathology -Abd U/S: Fatty liver vs hepatocellular disease. 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 - New Patient This patient is new to me today: Yes Date on this admission: 11/12/18 - Critical Care Critical Care patient: Yes Total Critical Care Time (in minutes): 38 Critical Care Statement: The care of this patient involved high complexity decision making to prevent further life threatening deterioration of the patient 's condition and/or to evaluate & treat vital organ system(s) failure or risk of failure.
[2018-11-12] MEDS: DEXTROSE 5%-LACTATED RINGERS 1,000 ML IV SCH (17:46)
--- NOTE | 2018-11-12 19:35 | PN ---
Progress Note, Physician History of Present Illness: previous noted - Current Medication List Current Medications: Active Medications Acetaminophen (Tylenol Oral Solution -) 650 mg PO Q6H PRN PRN Reason: Pain Atenolol (Tenormin -) 50 mg PO DAILY [facility] Atorvastatin Calcium (Lipitor -) 40 mg PO HS [facility] Last Admin: 11/11/18 21:47 Dose: 40 mg Escitalopram Oxalate (Lexapro -) 10 mg PO DAILY [facility] Last Admin: 11/12/18 10:14 Dose: 10 mg Pantoprazole Sodium 80 mg/ (Sodium Chloride) 100 mls @ 10 mls/hr IVPB Q10H [facility] Last Admin: 11/12/18 10:16 Dose: 10 mls/hr Dextrose/Lactated Ringer's (D5-Lr -) 1,000 mls @ 21 mls/hr IV ASDIR [facility] Last Admin: 11/12/18 17:46 Dose: 21 mls/hr Lidocaine HCl (Xylocaine 2% Viscous Oral -) 20 ml MM Q6H PRN PRN Reason: ORAL PAIN/MOUTH SORES Last Admin: 11/10/18 04:46 Dose: 20 ml Potassium Chloride (K-Dur -) 40 meq PO DAILY [facility] Last Admin: 11/12/18 10:14 Dose: 40 meq Saliva Substitute (Mouthkote Solution) 1 applic MM Q1H PRN PRN Reason: ORAL PAIN/MOUTH SORES Last Admin: 11/09/18 23:32 Dose: 1 applic Sevelamer Carbonate (Renvela -) 800 mg PO TIDCM [facility] Last Admin: 11/12/18 17:46 Dose: 800 mg Silver Sulfadiazine (Silvadene -) 1 applic TP DAILY [facility] Last Admin: 11/12/18 10:19 Dose: 1 applic Trazodone HCl (Desyrel -) 50 mg PO HS [facility] Last Admin: 11/11/18 21:47 Dose: 50 mg - Objective Vital Signs: Vital Signs Temperature 98.2 F 11/12/18 16:00 Pulse Rate 94 H 11/12/18 19:20 Respiratory Rate 15 11/12/18 19:20 Blood Pressure 97/76 11/12/18 19:20 O2 Sat by Pulse Oximetry (%) 96 11/12/18 11:00 Constitutional: Yes: No Distress HENT: Yes: Atraumatic Neck: Yes: Supple Cardiovascular: Yes: Regular Rate and Rhythm Respiratory: Yes: CTA Bilaterally Gastrointestinal: Yes: Normal Bowel Sounds Extremities: Yes: WNL Edema: No Peripheral Pulses WNL: Yes Neurological: Yes: Alert, Oriented Labs: CBC, BMP 11/12/18 07:10 11/12/18 07:10 INR, PTT INR 1.42 (0.83-1.09) H 11/12/18 10:20 Problem List - Problems (1) ESRD needing dialysis Assessment/Plan: on hd renal on board Code(s): N18.6 - END STAGE RENAL DISEASE; Z99.2 - DEPENDENCE ON RENAL DIALYSIS (2) HTN (hypertension) Assessment/Plan: monitor continue meds Code(s): I10 - ESSENTIAL (PRIMARY) HYPERTENSION Qualifiers: Hypertension type: essential hypertension Qualified Code(s): I10 - Essential (primary) hypertension (3) Peripheral arterial disease Assessment/Plan: dr mauricio castano saw patient for OR next week Code(s): I73.9 - PERIPHERAL VASCULAR DISEASE, UNSPECIFIED (4) Sepsis Assessment/Plan: not on abx Code(s): A41.9 - SEPSIS, UNSPECIFIED ORGANISM Qualifiers: Sepsis type: sepsis due to unspecified organism Qualified Code(s): A41.9 - Sepsis, unspecified organism (5) Atrial fibrillation with RVR Code(s): I48.91 - UNSPECIFIED ATRIAL FIBRILLATION (6) GI (gastrointestinal bleed) Assessment/Plan: on iv protonix gi eval reviewed Code(s): K92.2 - GASTROINTESTINAL HEMORRHAGE, UNSPECIFIED (7) Thrombocytopenia Code(s): D69.6 - THROMBOCYTOPENIA, UNSPECIFIED
[2018-11-12] MEDS ORDERED: PT OWN MED DRAWER 7, Y5N ONE (21:18)
[2018-11-12] MEDS: traZODone HCL 50 MG TABLET (FP) PO SCH (21:53)
[2018-11-12] MEDS: ATORVASTATIN CA 40 MG TABLET (FP) PO SCH (21:56)
[2018-11-13 06:41] LABS: BASO % 0.7 % (0-2.0); EOS % 0.7 % (0-4.5); HEMATOCRIT 29.5 % (35.4-49); HEMOGLOBIN 9.5 GM/dL (11.7-16.9); LYMPH % 20.3 % (8-40); MCH 30.7 pg (25.7-33.7); MCHC 32.2 g/dl (32.0-35.9); MEAN CELL VOLUME 95.6 fl (80-96); MEAN PLT VOLUME 10.4 fl (7.5-11.1); MONO % 22.5 % (3.8-10.2); NEUT % 55.8 % (42.8-82.8); PLATELET COUNT 79 K/MM3 (134-434); RBC 3.08 M/mm3 (4.00-5.60); RDW 22.7 % (11.9-15.9); WHITE BLOOD COUNT 6.4 K/mm3 (4.0-10.0)
[2018-11-13 07:09] LABS: ANION GAP 8 MMOL/L (8-16); BLOOD UREA NITROGEN 30 mg/dL (7-18); CALCIUM 9.7 mg/dL (8.5-10.1); CHLORIDE 101 mmol/L (98-107); CO2 33 mmol/L (21-32); CREATININE 4.2 mg/dL (0.55-1.3); GLUCOSE,RANDOM 111 mg/dL (74-106); MAGNESIUM 1.6 mg/dL (1.8-2.4); PHOSPHOROUS 3.9 mg/dL (2.5-4.9); POTASSIUM 3.6 mmol/L (3.5-5.1); SODIUM 142 mmol/L (136-145)
[2018-11-13 08:45] LABS: ANISOCYTOSIS 1+; MACROCYTOSIS 0; PLATELET ESTIMATE DECREASED
--- NOTE | 2018-11-13 09:50 | PN ---
Progress Note, Physician Chief Complaint: Events noted Not in distress History of Present Illness: Patient was seen and examined. Awake and alert. Chart was reviewed Denies chest pain or palpitations - Current Medication List Current Medications: Active Medications Acetaminophen (Tylenol Oral Solution -) 650 mg PO Q6H PRN PRN Reason: Pain Atenolol (Tenormin -) 50 mg PO DAILY [facility] Atorvastatin Calcium (Lipitor -) 40 mg PO HS [facility] Last Admin: 11/12/18 21:56 Dose: 40 mg Escitalopram Oxalate (Lexapro -) 10 mg PO DAILY [facility] Last Admin: 11/12/18 10:14 Dose: 10 mg Pantoprazole Sodium 80 mg/ (Sodium Chloride) 100 mls @ 10 mls/hr IVPB Q10H [facility] Last Admin: 11/12/18 21:55 Dose: 10 mls/hr Dextrose/Lactated Ringer's (D5-Lr -) 1,000 mls @ 21 mls/hr IV ASDIR [facility] Last Admin: 11/12/18 17:46 Dose: 21 mls/hr Lidocaine HCl (Xylocaine 2% Viscous Oral -) 20 ml MM Q6H PRN PRN Reason: ORAL PAIN/MOUTH SORES Last Admin: 11/10/18 04:46 Dose: 20 ml Potassium Chloride (K-Dur -) 40 meq PO DAILY [facility] Last Admin: 11/12/18 10:14 Dose: 40 meq Saliva Substitute (Mouthkote Solution) 1 applic MM Q1H PRN PRN Reason: ORAL PAIN/MOUTH SORES Last Admin: 11/09/18 23:32 Dose: 1 applic Sevelamer Carbonate (Renvela -) 800 mg PO TIDCM [facility] Last Admin: 11/12/18 17:46 Dose: 800 mg Silver Sulfadiazine (Silvadene -) 1 applic TP DAILY [facility] Last Admin: 11/12/18 10:19 Dose: 1 applic Trazodone HCl (Desyrel -) 50 mg PO HS [facility] Last Admin: 11/12/18 21:53 Dose: 50 mg - Objective Vital Signs: Vital Signs Temperature 98 F 11/13/18 02:25 Pulse Rate 90 11/13/18 07:00 Respiratory Rate 26 H 11/13/18 07:00 Blood Pressure 106/67 11/13/18 07:00 O2 Sat by Pulse Oximetry (%) 96 11/12/18 20:47 Neck: Yes: Supple Cardiovascular: Yes: Pulse Irregular, S1, S2 Respiratory: Yes: Diminished Gastrointestinal: Yes: Normal Bowel Sounds, Soft. No: Tenderness Edema: No Additional Findings/Remarks: - Review of Systems Constitutional: denies: Chills, Fever Cardiovascular: denies Chest Pain, Shortness of Breath. denies: Palpitations Respiratory: denies PND, Snoring, SOB. denies: Cough, Hemoptysis, Orthopnea, Wheezing Gastrointestinal: denies: Abdominal Pain, Constipation, Diarrhea, Melena, Nausea , Rectal Bleeding, Vomiting Genitourinary: denies: Dysuria, Hematuria Musculoskeletal: denies Back Pain. denies: Joint Pain Neurological: denies: Dizziness, Headache, Seizure, Syncope Labs: CBC, BMP 11/13/18 05:30 11/13/18 05:30 INR, PTT INR 1.42 (0.83-1.09) H 11/12/18 10:20 Problem List - Problems (1) Acute on chronic diastolic CHF (congestive heart failure) Code(s): I50.33 - ACUTE ON CHRONIC DIASTOLIC (CONGESTIVE) HEART FAILURE (2) ESRD needing dialysis Code(s): N18.6 - END STAGE RENAL DISEASE; Z99.2 - DEPENDENCE ON RENAL DIALYSIS (3) Encephalopathy Code(s): G93.40 - ENCEPHALOPATHY, UNSPECIFIED (4) HTN (hypertension) Code(s): I10 - ESSENTIAL (PRIMARY) HYPERTENSION Qualifiers: Hypertension type: essential hypertension Qualified Code(s): I10 - Essential (primary) hypertension (5) Peripheral arterial disease Code(s): I73.9 - PERIPHERAL VASCULAR DISEASE, UNSPECIFIED (6) Respiratory distress Code(s): R06.03 - ACUTE RESPIRATORY DISTRESS (7) Sepsis Code(s): A41.9 - SEPSIS, UNSPECIFIED ORGANISM Qualifiers: Sepsis type: sepsis due to unspecified organism Qualified Code(s): A41.9 - Sepsis, unspecified organism (8) Anemia Code(s): D64.9 - ANEMIA, UNSPECIFIED Qualifiers: Anemia type: other cause Other causes of anemia: acute posthemorrhagic Qualified Code(s): D62 - Acute posthemorrhagic anemia (9) Atrial fibrillation with RVR Code(s): I48.91 - UNSPECIFIED ATRIAL FIBRILLATION Assessment/Plan 1. Acute on Chronic Hypoxic and Hypercapneic Respiratory Failure 2. Acute on Chronic Diastolic Heart Failure with subendocardial ischemic injury 3. Elevated LFTs suspect congestive hepatopathy 4. Toxic metabolic encephelopathy with underlying dementia 5. ESRD on HD 6. PAD/Gangrene s/p FRUIT BUYER 7. Atrial Fibrillation 8. Thrombocytopenia PLAN: 1. HD per renal with ultrafiltration 2. BIPAP as needed 3. Follow LFT and cardiac enzymes 4. Eliquis held, continue Atenolol 50 mg QD and Liptor 40 mg QHS. Consider ARB as hemodynamics tolerate 5. To consider Watchman OLGA occlusion device as outpatient if clinically feasible and agreeable 6. Monitor CBC and transfuse as needed Further plans are to follow Jacky Gonsalves MD
--- NOTE | 2018-11-13 10:33 | PN ---
Teaching Attending Note Name of Resident: Elias Duarte ATTENDING PHYSICIAN STATEMENT I saw and evaluated the patient. I reviewed the resident's note and discussed the case with the resident. I agree with the resident's findings and plan as documented. SUBJECTIVE: Pt seen and examined in the ICU. Awake, alert but confused. No further bleeding noted. Last H/H has been stable. Last transfusion 11/10. OBJECTIVE: Vital Signs Period Temp Pulse Resp BP Sys/Medina Pulse Ox Last 24 Hr 98 F-98.2 F 84-98 15-26 90-125/38-76 96-96 Intake & Output 11/10/18 11/11/18 11/12/18 11/13/18 23:59 23:59 23:59 23:59 Intake Total 730 190 908 Output Total 70 Balance 730 190 908 -70 Weight 71.169 kg 72.9 kg Gen: NAD at rest Heart: RRR Lung: decreased breath sounds at the bases Abd: soft, nontender Ext: no edema, gangrenous toe CBC, BMP 11/13/18 05:30 11/13/18 05:30 Active Medications Acetaminophen (Tylenol Oral Solution -) 650 mg PO Q6H PRN PRN Reason: Pain Atenolol (Tenormin -) 50 mg PO DAILY [facility] Atorvastatin Calcium (Lipitor -) 40 mg PO HS [facility] Last Admin: 11/12/18 21:56 Dose: 40 mg Escitalopram Oxalate (Lexapro -) 10 mg PO DAILY [facility] Last Admin: 11/12/18 10:14 Dose: 10 mg Pantoprazole Sodium 80 mg/ (Sodium Chloride) 100 mls @ 10 mls/hr IVPB Q10H [facility] Last Admin: 11/12/18 21:55 Dose: 10 mls/hr Lidocaine HCl (Xylocaine 2% Viscous Oral -) 20 ml MM Q6H PRN PRN Reason: ORAL PAIN/MOUTH SORES Last Admin: 11/10/18 04:46 Dose: 20 ml Potassium Chloride (K-Dur -) 40 meq PO DAILY [facility] Last Admin: 11/12/18 10:14 Dose: 40 meq Saliva Substitute (Mouthkote Solution) 1 applic MM Q1H PRN PRN Reason: ORAL PAIN/MOUTH SORES Last Admin: 11/09/18 23:32 Dose: 1 applic Sevelamer Carbonate (Renvela -) 800 mg PO TIDCM [facility] Last Admin: 11/12/18 17:46 Dose: 800 mg Silver Sulfadiazine (Silvadene -) 1 applic TP DAILY [facility] Last Admin: 11/12/18 10:19 Dose: 1 applic Trazodone HCl (Desyrel -) 50 mg PO HS [facility] Last Admin: 11/12/18 21:53 Dose: 50 mg ASSESSMENT AND PLAN: Acute on Chronic Hypoxic and Hypercapneic Respiratory Failure improving Acute on Chronic Diastolic Heart Failure +Troponins likely Demand Ischemia Elevated LFTs suspect congestive hepatopathy GI Bleed resolved Acute Blood Loss Anemia stable ESRD on HD 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
[2018-11-13] MEDS: PANTOPRAZOLE SODIUM 80 MG in SODIUM CHLORIDE 100 ML IVPB SCH (11:21)
--- NOTE | 2018-11-13 11:30 | PN ---
Physical Exam: SUBJECTIVE: Patient seen and examined at bedside. No events overnight, no new complaints. Patient saturating well on room air. OBJECTIVE: Vital Signs Period Temp Pulse Resp BP Sys/[place] Pulse Ox Last 24 Hr 98 F-98.2 F 87-96 15-26 90-125/38-76 96 GENERAL: The patient is awake, alert, oriented to self only, in no acute distress. Patient repeatedly sees things which are not there, stating that he thought he saw a body underneath his sheets. HEAD: Normal with no signs of trauma. EYES: PERRL, extraocular movements intact, sclera anicteric, conjunctiva clear. No ptosis. LUNGS: Breath sounds equal, clear to auscultation bilaterally, no wheezes, no crackles, no accessory muscle use. HEART: Regular rate and rhythm, S1, S2 without murmur, rub or gallop. ABDOMEN: Soft, nontender, nondistended, normoactive bowel sounds, no guarding, no rebound, no hepatosplenomegaly, no masses. EXTREMITIES: 2+ pulses, warm, well-perfused, no edema. NEUROLOGICAL: Cranial nerves II through X grossly intact. Normal speech, gait not observed. SKIN: Warm, dry, normal turgor, no rashes or lesions noted Laboratory Results - last 24 hr 11/13/18 11/13/18 05:30 05:30 WBC 6.4 RBC 3.08 L Hgb 9.5 L Hct 29.5 L MCV 95.6 MCH 30.7 MCHC 32.2 RDW 22.7 H Plt Count 79 L MPV 10.4 Absolute Neuts (auto) 3.6 Neutrophils % 55.8 Neutrophils % (Manual) 45.8 D Band Neutrophils % 0.0 Lymphocytes % 20.3 D Lymphocytes % (Manual) 31.3 D Monocytes % 22.5 H Monocytes % (Manual) 18 H Eosinophils % 0.7 Eosinophils % (Manual) 2.1 D Basophils % 0.7 Basophils % (Manual) 1.1 D Myelocytes % (Man) 1 D Promyelocytes % (Man) 0 Blast Cells % (Manual) 0 Nucleated RBC % 0 Metamyelocytes 0 Hypochromia 1+ Platelet Estimate Decreased Polychromasia 1+ Poikilocytosis 0 Basophilic Stippling 1+ Anisocytosis 1+ Microcytosis 1+ Macrocytosis 0 Sodium 142 Potassium 3.6 Chloride 101 Carbon Dioxide 33 H Anion Gap 8 BUN 30 H Creatinine 4.2 H Creat Clearance w eGFR 13.72 Random Glucose 111 H Calcium 9.7 Phosphorus 3.9 Magnesium 1.6 L Active Medications Generic Name Dose Route Start Last Admin Trade Name Freq PRN Reason Stop Dose Admin Acetaminophen 650 mg 11/12/18 11:19 Tylenol Oral Solution - PO Q6H PRN Pain Atenolol 50 mg 11/11/18 10:00 Tenormin - PO DAILY [facility] Atorvastatin Calcium 40 mg 11/11/18 22:00 11/12/18 21:56 Lipitor - PO 40 mg HS [facility] Administration Escitalopram Oxalate 10 mg 11/11/18 10:00 11/12/18 10:14 Lexapro - PO 10 mg DAILY [facility] Administration Pantoprazole Sodium 80 mg/ 100 mls @ 10 mls/hr 11/11/18 14:00 11/13/18 11:21 Sodium Chloride IVPB 10 mls/hr Q10H [facility] Administration 8 MG/HR Lidocaine HCl 20 ml 11/09/18 16:51 11/10/18 04:46 Xylocaine 2% Viscous Oral - MM 20 ml Q6H PRN Administration ORAL PAIN/MOUTH SORES Potassium Chloride 40 meq 11/12/18 10:00 11/12/18 10:14 K-Dur - PO 40 meq DAILY [facility] Administration Saliva Substitute 1 applic 11/09/18 16:49 11/09/18 23:32 Mouthkote Solution MM 1 applic Q1H PRN Administration ORAL PAIN/MOUTH SORES Sevelamer Carbonate 800 mg 11/11/18 12:00 11/12/18 17:46 Renvela - PO 800 mg TIDCM [facility] Administration Silver Sulfadiazine 1 applic 11/11/18 10:00 11/12/18 10:19 Silvadene - TP 1 applic DAILY [facility] Administration Trazodone HCl 50 mg 11/11/18 22:00 11/12/18 21:53 Desyrel - PO 50 mg HS [facility] Administration ASSESSMENT/PLAN: 78 yo M h/o PAD s/p revascularization of tibial arterial disease, HTN, colon CA s/p resection (25 yrs ago), afib on eliquis, UGIB, ESRD (M, W, F), renal osteodystrophy, dementia admitted to the ICU for acute on chronic hypercapnic respiratory failure, now being observed for UGIB bleed. GI: - Consulted Dr. Chew / Dr. Kong - H/H remains stable. Low suspicion for continued bleeding. - Protonix IV 40mg BID - Per GI, patient high risk for any precudure due to his PMH, hypoxia and thrombocytopenia; EGD deferred. Agree with this assessment. Neuro: - Depression / Anxiety on Lexapro 10 mg/Trazodone and xanax prn Renal: - Will continue to maintain HD MWF. Will continue to trend electrolytes. - Nephrology consulted. CV: - Consult Dr. Arroyo - HTN on atenolol 50 mg daily, which is being held secondary to normal BP measurements. Will need to be renally dosed when continued. - Afib w/ RVR, on atenolol - AC still being held; will discuss with GI regarding restarting - HLD on Atorvastatin 40mg HS. Vascular: - Consult Dr. Martinez - PAD with necrotic left second toe. No signs/symptoms of systemic infection. - Dr. Martinez to consider surgery next week; no official surgery date at this time; will continue to feed. Pulm / Resp: - Stable, bipap and NC PRN, saturating well on room air - Aspiration precautions FEN: - Will advance to clear diet - Fluid and Sodium Restriction Prophylaxis: - For DVT: None while temporarily holding apixaban Dispo: - Stable for transfer to tele floor. Visit type - Emergency Visit Emergency Visit: Yes ED Registration Date: 11/01/18 Care time: The patient presented to the Emergency Department on the above date and was hospitalized for further evaluation of their emergent condition. - New Patient This patient is new to me today: No - Critical Care Critical Care patient: Yes Total Critical Care Time (in minutes): 35 Critical Care Statement: The care of this patient involved high complexity decision making to prevent further life threatening deterioration of the patient 's condition and/or to evaluate & treat vital organ system(s) failure or risk of failure. - Discharge Referral Referred to [facility] Med P.C.: No
[2018-11-13] MEDS: ESCITALOPRAM OXALATE 10 MG TABLET (FP) PO SCH (11:55)
[2018-11-13] MEDS: ACETAMINOPHEN 650 MG/20.3 ML ORAL SOLUTION (CUPS) PO PRN (11:55)
[2018-11-13] MEDS: SEVELAMER CARBONATE 800 MG TAB (FP) PO SCH ×3 (11:55→19:07)
[2018-11-13] MEDS: SILVER SULFADIAZINE 1% TOP CREAM 50 GM JAR TP SCH (12:08)
--- NOTE | 2018-11-13 12:33 | PN ---
Progress Note, Physician History of Present Illness: Pt seen and examined. Events noted. Labs/imaging results, reviewed. Currently still confused but without distress, remains afebrile. - Current Medication List Current Medications: Active Medications Acetaminophen (Tylenol Oral Solution -) 650 mg PO Q6H PRN PRN Reason: Pain Last Admin: 11/13/18 11:55 Dose: 650 mg Atenolol (Tenormin -) 50 mg PO DAILY [facility] Atorvastatin Calcium (Lipitor -) 40 mg PO HS [facility] Last Admin: 11/12/18 21:56 Dose: 40 mg Escitalopram Oxalate (Lexapro -) 10 mg PO DAILY [facility] Last Admin: 11/13/18 11:55 Dose: 10 mg Pantoprazole Sodium 80 mg/ (Sodium Chloride) 100 mls @ 10 mls/hr IVPB Q10H [facility] Last Admin: 11/13/18 11:21 Dose: 10 mls/hr Lidocaine HCl (Xylocaine 2% Viscous Oral -) 20 ml MM Q6H PRN PRN Reason: ORAL PAIN/MOUTH SORES Last Admin: 11/10/18 04:46 Dose: 20 ml Saliva Substitute (Mouthkote Solution) 1 applic MM Q1H PRN PRN Reason: ORAL PAIN/MOUTH SORES Last Admin: 11/09/18 23:32 Dose: 1 applic Sevelamer Carbonate (Renvela -) 800 mg PO TIDCM [facility] Last Admin: 11/13/18 11:56 Dose: 800 mg Silver Sulfadiazine (Silvadene -) 1 applic TP DAILY [facility] Last Admin: 11/12/18 10:19 Dose: 1 applic Trazodone HCl (Desyrel -) 50 mg PO [facility] Last Admin: 11/12/18 21:53 Dose: 50 mg - Objective Vital Signs: Vital Signs Temperature 98 F 11/13/18 02:25 Pulse Rate 90 11/13/18 07:00 Respiratory Rate 26 H 11/13/18 07:00 Blood Pressure 106/67 11/13/18 07:00 O2 Sat by Pulse Oximetry (%) 96 11/12/18 20:47 Constitutional: Yes: No Distress Cardiovascular: Yes: Pulse Irregular Respiratory: Yes: Regular Gastrointestinal: Yes: Normal Bowel Sounds, Soft, Abdomen, Obese Wound/Incision: Yes: Other (Lt 1st/2nd toe gangrenous , dry) Neurological: Yes: Confusion Labs: CBC, BMP 11/13/18 05:30 11/13/18 05:30 INR, PTT INR 1.42 (0.83-1.09) H 11/12/18 10:20 Microbiology 11/01/18 14:45 Blood - Peripheral Venous Blood Culture - Final NO GROWTH AFTER 5 DAYS INCUBATION 11/01/18 14:45 Blood - Peripheral Venous Blood Culture - Final NO GROWTH AFTER 5 DAYS INCUBATION 11/01/18 19:40 Urine - Urine - Catheterized Urine Culture - Final NO GROWTH OBTAINED Problem List - Problems (1) Acute on chronic diastolic CHF (congestive heart failure) Code(s): I50.33 - ACUTE ON CHRONIC DIASTOLIC (CONGESTIVE) HEART FAILURE (2) ESRD needing dialysis Code(s): N18.6 - END STAGE RENAL DISEASE; Z99.2 - DEPENDENCE ON RENAL DIALYSIS (3) Encephalopathy Code(s): G93.40 - ENCEPHALOPATHY, UNSPECIFIED (4) GI (gastrointestinal bleed) Code(s): K92.2 - GASTROINTESTINAL HEMORRHAGE, UNSPECIFIED (5) HTN (hypertension) Code(s): I10 - ESSENTIAL (PRIMARY) HYPERTENSION Qualifiers: Hypertension type: essential hypertension Qualified Code(s): I10 - Essential (primary) hypertension (6) Peripheral arterial disease Code(s): I73.9 - PERIPHERAL VASCULAR DISEASE, UNSPECIFIED (7) Anemia Code(s): D64.9 - ANEMIA, UNSPECIFIED Qualifiers: Anemia type: other cause Other causes of anemia: acute posthemorrhagic Qualified Code(s): D62 - Acute posthemorrhagic anemia (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
--- NOTE | 2018-11-13 19:58 | PN ---
Progress Note, Physician - Current Medication List Current Medications: Active Medications Acetaminophen (Tylenol Oral Solution -) 650 mg PO Q6H PRN PRN Reason: Pain Last Admin: 11/13/18 11:55 Dose: 650 mg Atenolol (Tenormin -) 50 mg PO DAILY [facility] Atorvastatin Calcium (Lipitor -) 40 mg PO HS [facility] Last Admin: 11/12/18 21:56 Dose: 40 mg Escitalopram Oxalate (Lexapro -) 10 mg PO DAILY [facility] Last Admin: 11/13/18 11:55 Dose: 10 mg Pantoprazole Sodium 80 mg/ (Sodium Chloride) 100 mls @ 10 mls/hr IVPB Q10H [facility] Last Admin: 11/13/18 11:21 Dose: 10 mls/hr Lidocaine HCl (Xylocaine 2% Viscous Oral -) 20 ml MM Q6H PRN PRN Reason: ORAL PAIN/MOUTH SORES Last Admin: 11/10/18 04:46 Dose: 20 ml Saliva Substitute (Mouthkote Solution) 1 applic MM Q1H PRN PRN Reason: ORAL PAIN/MOUTH SORES Last Admin: 11/09/18 23:32 Dose: 1 applic Sevelamer Carbonate (Renvela -) 800 mg PO TIDCM [facility] Last Admin: 11/13/18 19:07 Dose: 800 mg Silver Sulfadiazine (Silvadene -) 1 applic TP DAILY [facility] Last Admin: 11/13/18 12:08 Dose: 1 applic Trazodone HCl (Desyrel -) 50 mg PO HS [facility] Last Admin: 11/12/18 21:53 Dose: 50 mg - Objective Vital Signs: Vital Signs Temperature 98 F 11/13/18 16:00 Pulse Rate 92 H 11/13/18 16:00 Respiratory Rate 16 11/13/18 16:00 Blood Pressure 115/45 L 11/13/18 16:00 O2 Sat by Pulse Oximetry (%) 98 11/13/18 09:00 Constitutional: Yes: No Distress HENT: Yes: Atraumatic Neck: Yes: Supple Cardiovascular: Yes: Regular Rate and Rhythm Respiratory: Yes: CTA Bilaterally Gastrointestinal: Yes: Normal Bowel Sounds Extremities: Yes: Other (left toe) Edema: No Peripheral Pulses WNL: Yes Neurological: Yes: Alert, Oriented Labs: CBC, BMP 11/13/18 05:30 11/13/18 05:30 INR, PTT INR 1.42 (0.83-1.09) H 11/12/18 10:20 Problem List - Problems (1) ESRD needing dialysis Assessment/Plan: on hd renal on board Code(s): N18.6 - END STAGE RENAL DISEASE; Z99.2 - DEPENDENCE ON RENAL DIALYSIS (2) HTN (hypertension) Assessment/Plan: monitor continue meds Code(s): I10 - ESSENTIAL (PRIMARY) HYPERTENSION Qualifiers: Hypertension type: essential hypertension Qualified Code(s): I10 - Essential (primary) hypertension (3) Peripheral arterial disease Assessment/Plan: for OR keshawn Code(s): I73.9 - PERIPHERAL VASCULAR DISEASE, UNSPECIFIED (4) Sepsis Assessment/Plan: not on abx Code(s): A41.9 - SEPSIS, UNSPECIFIED ORGANISM Qualifiers: Sepsis type: sepsis due to unspecified organism Qualified Code(s): A41.9 - Sepsis, unspecified organism (5) Atrial fibrillation with RVR Code(s): I48.91 - UNSPECIFIED ATRIAL FIBRILLATION (6) GI (gastrointestinal bleed) Assessment/Plan: on iv protonix gi eval reviewed Code(s): K92.2 - GASTROINTESTINAL HEMORRHAGE, UNSPECIFIED (7) Thrombocytopenia Code(s): D69.6 - THROMBOCYTOPENIA, UNSPECIFIED Assessment/Plan ASSESSMENT Acute on Chronic Hypoxic and Hypercapneic Respiratory Failure Volume Overload Acute on Chronic Diastolic Heart Failure Elevated LFTs suspect congestive hepatopathy r/o Pneumonia r/o UTI ESRD on HD PAD/Gangrene Atrial Fibrillation Thrombocytopenia cc time 35 min
[2018-11-13] MEDS ORDERED: ALPRAZolam 0.25 MG TABLET PO PRN (20:40)
[2018-11-13] MEDS ORDERED: PT OWN MED DRAWER 7, Y5N ONE (21:22)
[2018-11-13] MEDS: traZODone HCL 50 MG TABLET (FP) PO SCH (21:35)
[2018-11-13] MEDS: ATORVASTATIN CA 40 MG TABLET (FP) PO SCH (21:35)
[2018-11-14 05:41] LABS: HEMATOCRIT 31.6 % (35.4-49); HEMOGLOBIN 10.1 GM/dL (11.7-16.9); MCH 30.8 pg (25.7-33.7); MEAN CELL VOLUME 96.1 fl (80-96); MEAN PLT VOLUME 10.2 fl (7.5-11.1); PLATELET COUNT 76 K/MM3 (134-434); RBC 3.29 M/mm3 (4.00-5.60); RDW 23.1 % (11.9-15.9); WHITE BLOOD COUNT 5.8 K/mm3 (4.0-10.0)
[2018-11-14 06:00] LABS: INR 1.44 (0.83-1.09); PROTHROMBIN TIME (PATIENT) 17.1 SEC (9.7-13.0)
[2018-11-14 06:07] LABS: ALBUMIN 3.3 g/dl (3.4-5.0); ALK PHOS 122 U/L (45-117); ANION GAP 10 MMOL/L (8-16); BILIRUBIN,TOTAL 1.1 mg/dL (0.2-1); BLOOD UREA NITROGEN 39 mg/dL (7-18); CALCIUM 10.6 mg/dL (8.5-10.1); CHLORIDE 98 mmol/L (98-107); CO2 32 mmol/L (21-32); CREATININE 5.3 mg/dL (0.55-1.3); GLUCOSE,RANDOM 98 mg/dL (74-106); MAGNESIUM 1.8 mg/dL (1.8-2.4); PHOSPHOROUS 4.5 mg/dL (2.5-4.9); POTASSIUM 3.8 mmol/L (3.5-5.1); SGOT/AST 26 U/L (15-37); SGPT/ALT 34 U/L (13-61); SODIUM 139 mmol/L (136-145); TOT PROT 6.5 g/dl (6.4-8.2)
--- NOTE | 2018-11-14 08:52 | PN ---
Progress Note, Physician Chief Complaint: Events noted Not in distress History of Present Illness: Patient was seen and examined. Awake and alert. Chart was reviewed Denies chest pain or palpitations - Current Medication List Current Medications: Active Medications Acetaminophen (Tylenol Oral Solution -) 650 mg PO Q6H PRN PRN Reason: Pain Last Admin: 11/13/18 11:55 Dose: 650 mg Alprazolam (Xanax -) 0.25 mg PO HS PRN PRN Reason: ANXIETY Last Admin: 11/13/18 21:35 Dose: 0.25 mg Atenolol (Tenormin -) 50 mg PO DAILY [facility] Atorvastatin Calcium (Lipitor -) 40 mg PO HS [facility] Last Admin: 11/13/18 21:35 Dose: 40 mg Escitalopram Oxalate (Lexapro -) 10 mg PO DAILY [facility] Last Admin: 11/13/18 11:55 Dose: 10 mg Lidocaine HCl (Xylocaine 2% Viscous Oral -) 20 ml MM Q6H PRN PRN Reason: ORAL PAIN/MOUTH SORES Last Admin: 11/10/18 04:46 Dose: 20 ml Pantoprazole Sodium (Protonix -) 40 mg PO DAILY [facility] Saliva Substitute (Mouthkote Solution) 1 applic MM Q1H PRN PRN Reason: ORAL PAIN/MOUTH SORES Last Admin: 11/09/18 23:32 Dose: 1 applic Sevelamer Carbonate (Renvela -) 800 mg PO TIDCM [facility] Last Admin: 11/13/18 19:07 Dose: 800 mg Silver Sulfadiazine (Silvadene -) 1 applic TP DAILY [facility] Last Admin: 11/13/18 12:08 Dose: 1 applic Trazodone HCl (Desyrel -) 50 mg PO HS [facility] Last Admin: 11/13/18 21:35 Dose: 50 mg - Objective Vital Signs: Vital Signs Temperature 98 F 11/13/18 16:00 Pulse Rate 118 H 11/14/18 05:39 Respiratory Rate 22 H 11/14/18 05:39 Blood Pressure 120/75 11/14/18 08:43 O2 Sat by Pulse Oximetry (%) 96 11/14/18 08:44 Eyes: Yes: PERRL HENT: Yes: Atraumatic Neck: Yes: Supple Cardiovascular: Yes: Pulse Irregular, S1, S2 Respiratory: Yes: Diminished Gastrointestinal: Yes: Normal Bowel Sounds, Soft. No: Tenderness Edema: No Additional Findings/Remarks: - Review of Systems Constitutional: denies: Chills, Fever Cardiovascular: denies Chest Pain, Shortness of Breath. denies: Palpitations Respiratory: denies PND, Snoring, SOB. denies: Cough, Hemoptysis, Orthopnea, Wheezing Gastrointestinal: denies: Abdominal Pain, Constipation, Diarrhea, Melena, Nausea , Rectal Bleeding, Vomiting Genitourinary: denies: Dysuria, Hematuria Musculoskeletal: denies Back Pain. denies: Joint Pain Neurological: denies: Dizziness, Headache, Seizure, Syncope Labs: CBC, BMP 11/14/18 05:30 11/14/18 05:30 INR, PTT INR 1.44 (0.83-1.09) H 11/14/18 05:30 Problem List - Problems (1) Acute on chronic diastolic CHF (congestive heart failure) Code(s): I50.33 - ACUTE ON CHRONIC DIASTOLIC (CONGESTIVE) HEART FAILURE (2) ESRD needing dialysis Code(s): N18.6 - END STAGE RENAL DISEASE; Z99.2 - DEPENDENCE ON RENAL DIALYSIS (3) Encephalopathy Code(s): G93.40 - ENCEPHALOPATHY, UNSPECIFIED (4) HTN (hypertension) Code(s): I10 - ESSENTIAL (PRIMARY) HYPERTENSION Qualifiers: Hypertension type: essential hypertension Qualified Code(s): I10 - Essential (primary) hypertension (5) Peripheral arterial disease Code(s): I73.9 - PERIPHERAL VASCULAR DISEASE, UNSPECIFIED (6) Respiratory distress Code(s): R06.03 - ACUTE RESPIRATORY DISTRESS (7) Sepsis Code(s): A41.9 - SEPSIS, UNSPECIFIED ORGANISM Qualifiers: Sepsis type: sepsis due to unspecified organism Qualified Code(s): A41.9 - Sepsis, unspecified organism (8) Anemia Code(s): D64.9 - ANEMIA, UNSPECIFIED Qualifiers: Anemia type: other cause Other causes of anemia: acute posthemorrhagic Qualified Code(s): D62 - Acute posthemorrhagic anemia (9) Atrial fibrillation with RVR Code(s): I48.91 - UNSPECIFIED ATRIAL FIBRILLATION Assessment/Plan 1. Acute on Chronic Hypoxic and Hypercapneic Respiratory Failure 2. Acute on Chronic Diastolic Heart Failure with subendocardial ischemic injury 3. Elevated LFTs suspect congestive hepatopathy 4. Toxic metabolic encephelopathy with underlying dementia 5. ESRD on HD 6. 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 Atrial Fibrillation 8. Thrombocytopenia PLAN: 1. HD per renal with ultrafiltration 2. BIPAP as needed 3. Eliquis held, continue Atenolol 50 mg QD and Liptor 40 mg QHS. Consider ARB as hemodynamics tolerate 4. To consider Watchman OLGA occlusion device as outpatient if clinically feasible and agreeable Further plans are to follow Jacky Gonsalves MD
--- NOTE | 2018-11-14 09:18 | PN ---
Teaching Attending Note Name of Resident: Doug Thomas ATTENDING PHYSICIAN STATEMENT I saw and evaluated the patient. I reviewed the resident's note and discussed the case with the resident. I agree with the resident's findings and plan as documented. SUBJECTIVE: Pt seen and examined in the ICU. No overnight events aside from intermittent agitation/confusion. OBJECTIVE: Vital Signs Period Temp Pulse Resp BP Sys/Medina Pulse Ox Last 24 Hr 98 F-98.4 F 92-118 16-22 89-120/45-78 96-98 Intake & Output 11/11/18 11/12/18 11/13/18 11/14/18 23:59 23:59 23:59 23:59 Intake Total 190 908 450 120 Output Total 70 Balance 190 908 380 120 Weight 71.169 kg 72.9 kg 68.549 kg Gen: NAD at rest Heart: irregular Lung: decreased breath sounds at the bases Abd: soft, nontender Ext: no edema CBC, BMP 11/14/18 05:30 11/14/18 05:30 Active Medications Acetaminophen (Tylenol Oral Solution -) 650 mg PO Q6H PRN PRN Reason: Pain Last Admin: 11/13/18 11:55 Dose: 650 mg Alprazolam (Xanax -) 0.25 mg PO HS PRN PRN Reason: ANXIETY Last Admin: 11/13/18 21:35 Dose: 0.25 mg Atenolol (Tenormin -) 50 mg PO DAILY [facility] Atorvastatin Calcium (Lipitor -) 40 mg PO HS [facility] Last Admin: 11/13/18 21:35 Dose: 40 mg Escitalopram Oxalate (Lexapro -) 10 mg PO DAILY [facility] Last Admin: 11/13/18 11:55 Dose: 10 mg Lidocaine HCl (Xylocaine 2% Viscous Oral -) 20 ml MM Q6H PRN PRN Reason: ORAL PAIN/MOUTH SORES Last Admin: 11/10/18 04:46 Dose: 20 ml Pantoprazole Sodium (Protonix -) 40 mg PO DAILY [facility] Saliva Substitute (Mouthkote Solution) 1 applic MM Q1H PRN PRN Reason: ORAL PAIN/MOUTH SORES Last Admin: 11/09/18 23:32 Dose: 1 applic Sevelamer Carbonate (Renvela -) 800 mg PO TIDCM [facility] Last Admin: 11/13/18 19:07 Dose: 800 mg Silver Sulfadiazine (Silvadene -) 1 applic TP DAILY [facility] Last Admin: 11/13/18 12:08 Dose: 1 applic Trazodone HCl (Desyrel -) 50 mg PO HS [facility] Last Admin: 11/13/18 21:35 Dose: 50 mg ASSESSMENT AND PLAN: Acute on Chronic Hypoxic and Hypercapneic Respiratory Failure improving Acute on Chronic Diastolic Heart Failure +Troponins likely Demand Ischemia Elevated LFTs suspect congestive hepatopathy GI Bleed resolved Acute Blood Loss Anemia stable ESRD on HD PAD/Gangrene s/p DIRECTOR CAREER SERVICES Atrial Fibrillation Thrombocytopenia - monitor H/H, platelets - protonix - HD per renal - holding anticoagulation - f/u with GI regarding anticoagulation in future - O2 to keep SpO2 >90% - DVT prophylaxis - can monitor on telemetry
[2018-11-14] MEDS: SEVELAMER CARBONATE 800 MG TAB (FP) PO SCH ×3 (09:49→17:18)
[2018-11-14] MEDS: ESCITALOPRAM OXALATE 10 MG TABLET (FP) PO SCH (09:50)
[2018-11-14] MEDS: PANTOPRAZOLE 40 MG TABLET (FP) PO SCH (09:50)
--- NOTE | 2018-11-14 10:30 | PN ---
Progress Note, Physician History of Present Illness: Seen and examined at bedside. No complaint or acute event overnight. - Current Medication List Current Medications: Active Medications Acetaminophen (Tylenol Oral Solution -) 650 mg PO Q6H PRN PRN Reason: Pain Last Admin: 11/13/18 11:55 Dose: 650 mg Alprazolam (Xanax -) 0.25 mg PO HS PRN PRN Reason: ANXIETY Last Admin: 11/13/18 21:35 Dose: 0.25 mg Atenolol (Tenormin -) 50 mg PO DAILY [facility] Atorvastatin Calcium (Lipitor -) 40 mg PO HS [facility] Last Admin: 11/13/18 21:35 Dose: 40 mg Escitalopram Oxalate (Lexapro -) 10 mg PO DAILY [facility] Last Admin: 11/14/18 09:50 Dose: 10 mg Lidocaine HCl (Xylocaine 2% Viscous Oral -) 20 ml MM Q6H PRN PRN Reason: ORAL PAIN/MOUTH SORES Last Admin: 11/10/18 04:46 Dose: 20 ml Pantoprazole Sodium (Protonix -) 40 mg PO DAILY [facility] Last Admin: 11/14/18 09:50 Dose: 40 mg Saliva Substitute (Mouthkote Solution) 1 applic MM Q1H PRN PRN Reason: ORAL PAIN/MOUTH SORES Last Admin: 11/09/18 23:32 Dose: 1 applic Sevelamer Carbonate (Renvela -) 800 mg PO TIDCM [facility] Last Admin: 11/14/18 09:49 Dose: 800 mg Silver Sulfadiazine (Silvadene -) 1 applic TP DAILY [facility] Last Admin: 11/13/18 12:08 Dose: 1 applic Trazodone HCl (Desyrel -) 50 mg PO HS [facility] Last Admin: 11/13/18 21:35 Dose: 50 mg - Objective Vital Signs: Vital Signs Temperature 98 F 11/13/18 16:00 Pulse Rate 118 H 11/14/18 05:39 Respiratory Rate 22 H 11/14/18 05:39 Blood Pressure 120/75 11/14/18 08:43 O2 Sat by Pulse Oximetry (%) 96 11/14/18 08:44 Constitutional: Yes: No Distress, Calm Cardiovascular: Yes: Regular Rate and Rhythm, S1, S2. No: Murmur Respiratory: Yes: Regular, CTA Bilaterally Gastrointestinal: Yes: Normal Bowel Sounds, Soft. No: Tenderness Wound/Incision: Yes: Dressing Dry and Intact Neurological: Yes: Alert, Oriented. No: Confusion Labs: CBC, BMP 11/14/18 05:30 11/14/18 05:30 INR, PTT INR 1.44 (0.83-1.09) H 11/14/18 05:30 Impression/Plan Impression/Plan: 78 yo M h/o PAD s/p revascularization of tibial arterial disease, HTN, colon CA s/p resection (25 yrs ago), afib on eliquis, UGIB, ESRD (M, W, F), renal osteodystrophy, dementia admitted to the ICU for acute on chronic hypercapnic respiratory failure, now being observed for UGIB bleed. GI: - No more melena - Stable H/H Neuro: - Depression / Anxiety on Lexapro 10 mg/Trazodone and xanax prn Renal: - HD tomorrow CV: - atenolol held due to hypotension - Afib w/ RVR, cont to hold eliquis for procedure next week - HLD on Atorvastatin 40mg HS. Vascular: - PAD: procedure next week Pulm / Resp: - Stable, bipap QHS PRN, - Aspiration precautions FEN: - Clear - Fluid and Sodium Restriction Prophylaxis: - For DVT: hold eliquis Dispo: - transfer to tele Visit type - Emergency Visit Emergency Visit: No - New Patient This patient is new to me today: No - Critical Care Critical Care patient: Yes Total Critical Care Time (in minutes): 35 Critical Care Statement: The care of this patient involved high complexity decision making to prevent further life threatening deterioration of the patient 's condition and/or to evaluate & treat vital organ system(s) failure or risk of failure.
[2018-11-14] MEDS: SILVER SULFADIAZINE 1% TOP CREAM 50 GM JAR TP SCH (11:38)
--- NOTE | 2018-11-14 13:00 | PN ---
Progress Note, Physician History of Present Illness: No new events reported. Pt arousable, without distress. - Current Medication List Current Medications: Active Medications Acetaminophen (Tylenol Oral Solution -) 650 mg PO Q6H PRN PRN Reason: Pain Last Admin: 11/13/18 11:55 Dose: 650 mg Alprazolam (Xanax -) 0.25 mg PO HS PRN PRN Reason: ANXIETY Last Admin: 11/13/18 21:35 Dose: 0.25 mg Atenolol (Tenormin -) 50 mg PO DAILY [facility] Atorvastatin Calcium (Lipitor -) 40 mg PO HS [facility] Last Admin: 11/13/18 21:35 Dose: 40 mg Escitalopram Oxalate (Lexapro -) 10 mg PO DAILY [facility] Last Admin: 11/14/18 09:50 Dose: 10 mg Lidocaine HCl (Xylocaine 2% Viscous Oral -) 20 ml MM Q6H PRN PRN Reason: ORAL PAIN/MOUTH SORES Last Admin: 11/10/18 04:46 Dose: 20 ml Pantoprazole Sodium (Protonix -) 40 mg PO DAILY [facility] Last Admin: 11/14/18 09:50 Dose: 40 mg Saliva Substitute (Mouthkote Solution) 1 applic MM Q1H PRN PRN Reason: ORAL PAIN/MOUTH SORES Last Admin: 11/09/18 23:32 Dose: 1 applic Sevelamer Carbonate (Renvela -) 800 mg PO TIDCM [facility] Last Admin: 11/14/18 11:38 Dose: 800 mg Silver Sulfadiazine (Silvadene -) 1 applic TP DAILY [facility] Last Admin: 11/14/18 11:38 Dose: 1 applic Trazodone HCl (Desyrel -) 50 mg PO HS [facility] Last Admin: 11/13/18 21:35 Dose: 50 mg - Objective Vital Signs: Vital Signs Temperature 98 F 11/14/18 12:00 Pulse Rate 99 H 11/14/18 12:00 Respiratory Rate 18 11/14/18 12:00 Blood Pressure 130/90 11/14/18 12:00 O2 Sat by Pulse Oximetry (%) 96 11/14/18 08:44 Constitutional: Yes: No Distress Cardiovascular: Yes: Pulse Irregular Respiratory: Yes: CTA Bilaterally Gastrointestinal: Yes: Normal Bowel Sounds, Soft Wound/Incision: Yes: Dressing Dry and Intact Neurological: Yes: Other (easily arousable) Labs: CBC, BMP 11/14/18 05:30 11/14/18 05:30 INR, PTT INR 1.44 (0.83-1.09) H 11/14/18 05:30 Problem List - Problems (1) Acute on chronic diastolic CHF (congestive heart failure) Code(s): I50.33 - ACUTE ON CHRONIC DIASTOLIC (CONGESTIVE) HEART FAILURE (2) ESRD needing dialysis Code(s): N18.6 - END STAGE RENAL DISEASE; Z99.2 - DEPENDENCE ON RENAL DIALYSIS (3) Encephalopathy Code(s): G93.40 - ENCEPHALOPATHY, UNSPECIFIED (4) GI (gastrointestinal bleed) Code(s): K92.2 - GASTROINTESTINAL HEMORRHAGE, UNSPECIFIED (5) HTN (hypertension) Code(s): I10 - ESSENTIAL (PRIMARY) HYPERTENSION Qualifiers: Hypertension type: essential hypertension Qualified Code(s): I10 - Essential (primary) hypertension (6) Peripheral arterial disease Code(s): I73.9 - PERIPHERAL VASCULAR DISEASE, UNSPECIFIED (7) Anemia Code(s): D64.9 - ANEMIA, UNSPECIFIED Qualifiers: Anemia type: other cause Other causes of anemia: acute posthemorrhagic Qualified Code(s): D62 - Acute posthemorrhagic anemia (8) 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
--- NOTE | 2018-11-14 17:20 | PN ---
Progress Note, Physician History of Present Illness: previous noted - Current Medication List Current Medications: Active Medications Acetaminophen (Tylenol Oral Solution -) 650 mg PO Q6H PRN PRN Reason: Pain Last Admin: 11/13/18 11:55 Dose: 650 mg Alprazolam (Xanax -) 0.25 mg PO HS PRN PRN Reason: ANXIETY Last Admin: 11/13/18 21:35 Dose: 0.25 mg Atenolol (Tenormin -) 50 mg PO DAILY [facility] Atorvastatin Calcium (Lipitor -) 40 mg PO HS [facility] Last Admin: 11/13/18 21:35 Dose: 40 mg Escitalopram Oxalate (Lexapro -) 10 mg PO DAILY [facility] Last Admin: 11/14/18 09:50 Dose: 10 mg Lidocaine HCl (Xylocaine 2% Viscous Oral -) 20 ml MM Q6H PRN PRN Reason: ORAL PAIN/MOUTH SORES Last Admin: 11/10/18 04:46 Dose: 20 ml Pantoprazole Sodium (Protonix -) 40 mg PO DAILY [facility] Last Admin: 11/14/18 09:50 Dose: 40 mg Saliva Substitute (Mouthkote Solution) 1 applic MM Q1H PRN PRN Reason: ORAL PAIN/MOUTH SORES Last Admin: 11/09/18 23:32 Dose: 1 applic Sevelamer Carbonate (Renvela -) 800 mg PO TIDCM [facility] Last Admin: 11/14/18 17:18 Dose: 800 mg Silver Sulfadiazine (Silvadene -) 1 applic TP DAILY [facility] Last Admin: 11/14/18 11:38 Dose: 1 applic Trazodone HCl (Desyrel -) 50 mg PO HS [facility] Last Admin: 11/13/18 21:35 Dose: 50 mg - Objective Vital Signs: Vital Signs Temperature 97.5 F L 11/14/18 16:00 Pulse Rate 104 H 11/14/18 16:00 Respiratory Rate 18 11/14/18 16:00 Blood Pressure 94/74 11/14/18 16:00 O2 Sat by Pulse Oximetry (%) 96 11/14/18 08:44 Constitutional: Yes: No Distress HENT: Yes: Atraumatic Neck: Yes: Supple Cardiovascular: Yes: Regular Rate and Rhythm Respiratory: Yes: CTA Bilaterally Gastrointestinal: Yes: Normal Bowel Sounds Extremities: Yes: WNL Edema: No Neurological: Yes: Alert, Oriented Labs: CBC, BMP 11/14/18 05:30 11/14/18 05:30 INR, PTT INR 1.44 (0.83-1.09) H 11/14/18 05:30 Problem List - Problems (1) ESRD needing dialysis Assessment/Plan: on hd renal on board Code(s): N18.6 - END STAGE RENAL DISEASE; Z99.2 - DEPENDENCE ON RENAL DIALYSIS (2) HTN (hypertension) Assessment/Plan: monitor continue meds Code(s): I10 - ESSENTIAL (PRIMARY) HYPERTENSION Qualifiers: Hypertension type: essential hypertension Qualified Code(s): I10 - Essential (primary) hypertension (3) Peripheral arterial disease Assessment/Plan: dr mauricio castano saw patient for OR next week Code(s): I73.9 - PERIPHERAL VASCULAR DISEASE, UNSPECIFIED (4) Sepsis Assessment/Plan: not on abx Code(s): A41.9 - SEPSIS, UNSPECIFIED ORGANISM Qualifiers: Sepsis type: sepsis due to unspecified organism Qualified Code(s): A41.9 - Sepsis, unspecified organism (5) Atrial fibrillation with RVR Code(s): I48.91 - UNSPECIFIED ATRIAL FIBRILLATION (6) GI (gastrointestinal bleed) Code(s): K92.2 - GASTROINTESTINAL HEMORRHAGE, UNSPECIFIED (7) Thrombocytopenia Code(s): D69.6 - THROMBOCYTOPENIA, UNSPECIFIED
[2018-11-14] MEDS ORDERED: PT OWN MED DRAWER 7, Y5N ONE (21:18)
[2018-11-14] MEDS: traZODone HCL 50 MG TABLET (FP) PO SCH (21:29)
[2018-11-14] MEDS: ATORVASTATIN CA 40 MG TABLET (FP) PO SCH (21:29)
--- NOTE | 2018-11-14 21:40 | PN ---
Progress Note (short form) - Note Progress Note: patient seen on 11/13 and 11/14 failed to document 11/13 78 year old gentleman with hx of ESRD on HD, Colon Ca s/p resection, Afib, PVD, Dementia foot gangrene PVD s/p Fluid overload with respiratory failure CHF/Diastolic HF Thrombocytopenia Anemia s/p Hyponatremia Current Medications Acetaminophen (Tylenol Oral Solution -) 650 mg PO Q6H PRN PRN Reason: Pain Last Admin: 11/13/18 11:55 Dose: 650 mg Alprazolam (Xanax -) 0.25 mg PO HS PRN PRN Reason: ANXIETY Last Admin: 11/13/18 21:35 Dose: 0.25 mg Atenolol (Tenormin -) 50 mg PO DAILY [facility] Atorvastatin Calcium (Lipitor -) 40 mg PO HS [facility] Last Admin: 11/14/18 21:29 Dose: 40 mg Escitalopram Oxalate (Lexapro -) 10 mg PO DAILY [facility] Last Admin: 11/14/18 09:50 Dose: 10 mg Lidocaine HCl (Xylocaine 2% Viscous Oral -) 20 ml MM Q6H PRN PRN Reason: ORAL PAIN/MOUTH SORES Last Admin: 11/10/18 04:46 Dose: 20 ml Pantoprazole Sodium (Protonix -) 40 mg PO DAILY [facility] Last Admin: 11/14/18 09:50 Dose: 40 mg Saliva Substitute (Mouthkote Solution) 1 applic MM Q1H PRN PRN Reason: ORAL PAIN/MOUTH SORES Last Admin: 11/09/18 23:32 Dose: 1 applic Sevelamer Carbonate (Renvela -) 800 mg PO TIDCM [facility] Last Admin: 11/14/18 17:18 Dose: 800 mg Silver Sulfadiazine (Silvadene -) 1 applic TP DAILY [facility] Last Admin: 11/14/18 11:38 Dose: 1 applic Trazodone HCl (Desyrel -) 50 mg PO HS [facility] Last Admin: 11/14/18 21:29 Dose: 50 mg Last Vital Signs Temp Pulse Resp BP Pulse Ox 97.8 F 95 H 13 112/93 98 11/14/18 20:00 11/14/18 20:00 11/14/18 20:00 11/14/18 20:00 11/14/18 20:21 agitated and confused comfortable lying flat denies sob Lungs clear Heart reg Abd soft nontender Ext no edema CBC, BMP 11/14/18 05:30 11/14/18 05:30 ESRD PVD Plan- HD in am
[2018-11-14] MEDS ORDERED: SODIUM CHLORIDE 250 ML IV PRN (21:41)
[2018-11-15 05:50] LABS: HEMATOCRIT 29.4 % (35.4-49); HEMOGLOBIN 9.4 GM/dL (11.7-16.9); MCH 30.6 pg (25.7-33.7); MCHC 31.9 g/dl (32.0-35.9); MEAN CELL VOLUME 95.7 fl (80-96); MEAN PLT VOLUME 10.6 fl (7.5-11.1); PLATELET COUNT 77 K/MM3 (134-434); RBC 3.07 M/mm3 (4.00-5.60); RDW 23.6 % (11.9-15.9); WHITE BLOOD COUNT 5.6 K/mm3 (4.0-10.0)
[2018-11-15 06:23] LABS: ALBUMIN 3.1 g/dl (3.4-5.0); ALK PHOS 114 U/L (45-117); ANION GAP 10 MMOL/L (8-16); BLOOD UREA NITROGEN 45 mg/dL (7-18); CALCIUM 10.2 mg/dL (8.5-10.1); CHLORIDE 100 mmol/L (98-107); CO2 30 mmol/L (21-32); CREATININE 6.5 mg/dL (0.55-1.3); GLUCOSE,RANDOM 88 mg/dL (74-106); SGOT/AST 20 U/L (15-37); SGPT/ALT 29 U/L (13-61); SODIUM 140 mmol/L (136-145); TOT PROT 5.9 g/dl (6.4-8.2)
--- NOTE | 2018-11-15 07:10 | PN ---
Physical Exam: SUBJECTIVE: Patient seen and examined HD# 14 Overnight Events: No acute events overnight. Receiving HD this AM. No complaints. OBJECTIVE: Lines: - PIV Drains: - None Supplemental Oxygen: Nasal Cannula @ 3 LPM I/Os not strictly monitored. Vital Signs Period Temp Pulse Resp BP Sys/Medina Pulse Ox Last 24 Hr 97.2 F-98 F 85-104 13-20 94-149/74-93 96-98 Physical Exams: GENERAL: The patient is awake, alert, and oriented to person and place. HEAD: Normal with no signs of trauma. EYES: Conjunctiva pink and not injected. NECK: Trachea midline, full range of motion, supple. LUNGS: Nasal cannula in place. Breath sounds equal, clear to auscultation bilaterally, no wheezes, no crackles, no accessory muscle use. HEART: Irregularly irregular rate and rhythm, S1, S2 without murmur, rub or gallop. ABDOMEN: Soft, nontender, nondistended EXTREMITIES: 2+ pulses, warm, well-perfused, no edema. Clean and dry bandages to both feet. PSYCH: Normal mood, normal affect. SKIN: [place], warm, and dry Laboratory Results - last 24 hr 11/15/18 11/15/18 05:30 05:30 WBC 5.6 RBC 3.07 L Hgb 9.4 L Hct 29.4 L MCV 95.7 MCH 30.6 MCHC 31.9 L RDW 23.6 H Plt Count 77 L MPV 10.6 Sodium 140 Potassium 4.0 Chloride 100 Carbon Dioxide 30 Anion Gap 10 BUN 45 H Creatinine 6.5 H Creat Clearance w eGFR 8.29 Random Glucose 88 Calcium 10.2 H Total Bilirubin 1.0 AST 20 ALT 29 Alkaline Phosphatase 114 Total Protein 5.9 L Albumin 3.1 L Active Medications Generic Name Dose Route Start Last Admin Trade Name Freq PRN Reason Stop Dose Admin Acetaminophen 650 mg 11/12/18 11:19 11/13/18 11:55 Tylenol Oral Solution - PO 650 mg Q6H PRN Administration Pain Alprazolam 0.25 mg 11/13/18 20:40 11/13/18 21:35 Xanax - PO 0.25 mg HS PRN Administration ANXIETY Atenolol 50 mg 11/11/18 10:00 Tenormin - PO DAILY MARCUS Atorvastatin Calcium 40 mg 11/11/18 22:00 11/14/18 21:29 Lipitor - PO 40 mg HS [facility]US Administration Escitalopram Oxalate 10 mg 11/11/18 10:00 11/14/18 09:50 Lexapro - PO 10 mg DAILY [facility]US Administration Sodium Chloride 250 mls @ 3,000 mls/hr 11/14/18 21:41 Normal Saline - IV 11/15/18 21:41 PRN PRN Hypotension during Dialysis Lidocaine HCl 20 ml 11/09/18 16:51 11/10/18 04:46 Xylocaine 2% Viscous Oral - MM 20 ml Q6H PRN Administration ORAL PAIN/MOUTH SORES Pantoprazole Sodium 40 mg 11/14/18 10:00 11/14/18 09:50 Protonix - PO 40 mg DAILY [facility] Administration Saliva Substitute 1 applic 11/09/18 16:49 11/09/18 23:32 Mouthkote Solution MM 1 applic Q1H PRN Administration ORAL PAIN/MOUTH SORES Sevelamer Carbonate 800 mg 11/11/18 12:00 11/14/18 17:18 Renvela - PO 800 mg TIDCM [facility] Administration Silver Sulfadiazine 1 applic 11/11/18 10:00 11/14/18 11:38 Silvadene - TP 1 applic DAILY [facility] Administration Trazodone HCl 50 mg 11/11/18 22:00 11/14/18 21:29 Desyrel - PO 50 mg HS [facility] Administration ASSESSMENT/PLAN: 78 yo M h/o PAD s/p revascularization of tibial arterial disease, HTN, colon CA s/p resection (25 yrs ago), afib on eliquis, UGIB, ESRD (M, W, F), renal osteodystrophy, dementia admitted to the ICU for acute on chronic hypercapnic respiratory failure, now being observed for UGIB bleed. GI: - Consulted Dr. Chew / Dr. Kong - H/H remains stable low suspicion for additional bleeding. - Will restart Apixaban when recommended by GI. Neuro: - Depression / Anxiety on Lexapro 10 mg/Trazodone and xanax prn Renal: - HD performed this morning without complication. Will continue to trend electrolytes. CV: - Consult Dr. Arroyo - HTN on atenolol 50 mg daily, which is being held secondary to normal BP measurements. Will need to be renally dosed when continued. - Afib w/ RVR, on atenolol, Apixaban still being held at recommendation of GI consult - HLD on Atorvastatin 40mg HS. Vascular: - Consult Dr. Martinez - PAD with necrotic left second toe. No signs/symptoms of systemic infection. - Awaiting Dr. Martinezs recommendations. Pulm / Resp: - Stable, bipap QHS PRN, on NC now - Aspiration precautions FEN: - Clear diet - Fluid and Sodium Restriction Prophylaxis: - For DVT: None while temporarily holding apixaban Dispo: - Recommend care to be deescalated to telemetry floor. Elia Canchola MD, PGY1 ICU Consult Service Visit type - Emergency Visit Emergency Visit: No - New Patient This patient is new to me today: No - Critical Care Critical Care patient: Yes Total Critical Care Time (in minutes): 35 Critical Care Statement: The care of this patient involved high complexity decision making to prevent further life threatening deterioration of the patient 's condition and/or to evaluate & treat vital organ system(s) failure or risk of failure.
[2018-11-15] MEDS ORDERED: PT OWN MED DRAWER 7, Y5N ONE ×2 (09:42→21:03)
--- NOTE | 2018-11-15 09:42 | PN ---
Progress Note, Physician Chief Complaint: Events noted Not in distress Being dialyzed History of Present Illness: Patient was seen and examined. Awake and alert. Chart was reviewed Denies chest pain or palpitations - Current Medication List Current Medications: Active Medications Acetaminophen (Tylenol Oral Solution -) 650 mg PO Q6H PRN PRN Reason: Pain Last Admin: 11/13/18 11:55 Dose: 650 mg Alprazolam (Xanax -) 0.25 mg PO HS PRN PRN Reason: ANXIETY Last Admin: 11/13/18 21:35 Dose: 0.25 mg Atenolol (Tenormin -) 50 mg PO DAILY [facility] Atorvastatin Calcium (Lipitor -) 40 mg PO HS [facility] Last Admin: 11/14/18 21:29 Dose: 40 mg Escitalopram Oxalate (Lexapro -) 10 mg PO DAILY [facility] Last Admin: 11/14/18 09:50 Dose: 10 mg Sodium Chloride (Normal Saline -) 250 mls @ 3,000 mls/hr IV PRN PRN PRN Reason: Hypotension during Dialysis Stop: 11/15/18 21:41 Lidocaine HCl (Xylocaine 2% Viscous Oral -) 20 ml MM Q6H PRN PRN Reason: ORAL PAIN/MOUTH SORES Last Admin: 11/10/18 04:46 Dose: 20 ml Pantoprazole Sodium (Protonix -) 40 mg PO DAILY [facility] Last Admin: 11/14/18 09:50 Dose: 40 mg Saliva Substitute (Mouthkote Solution) 1 applic MM Q1H PRN PRN Reason: ORAL PAIN/MOUTH SORES Last Admin: 11/09/18 23:32 Dose: 1 applic Sevelamer Carbonate (Renvela -) 800 mg PO TIDCM [facility] Last Admin: 11/14/18 17:18 Dose: 800 mg Silver Sulfadiazine (Silvadene -) 1 applic TP DAILY [facility] Last Admin: 11/14/18 11:38 Dose: 1 applic Trazodone HCl (Desyrel -) 50 mg PO HS [facility] Last Admin: 11/14/18 21:29 Dose: 50 mg - Objective Vital Signs: Vital Signs Temperature 98.2 F 11/15/18 07:10 Pulse Rate 96 H 11/15/18 08:45 Respiratory Rate 18 11/15/18 08:45 Blood Pressure 114/54 L 11/15/18 08:45 O2 Sat by Pulse Oximetry (%) 98 11/14/18 22:26 HENT: Yes: Atraumatic Neck: Yes: Supple Cardiovascular: Yes: Pulse Irregular, S1, S2 Respiratory: Yes: Diminished Gastrointestinal: Yes: Normal Bowel Sounds, Soft. No: Tenderness Edema: No Additional Findings/Remarks: - Review of Systems Constitutional: denies: Chills, Fever Cardiovascular: denies Chest Pain, Shortness of Breath. denies: Palpitations Respiratory: denies PND, Snoring, SOB. denies: Cough, Hemoptysis, Orthopnea, Wheezing Gastrointestinal: denies: Abdominal Pain, Constipation, Diarrhea, Melena, Nausea , Rectal Bleeding, Vomiting Genitourinary: denies: Dysuria, Hematuria Musculoskeletal: denies Back Pain. denies: Joint Pain Neurological: denies: Dizziness, Headache, Seizure, Syncope Labs: CBC, BMP 11/15/18 05:30 11/15/18 05:30 INR, PTT INR 1.44 (0.83-1.09) H 11/14/18 05:30 Problem List - Problems (1) Acute on chronic diastolic CHF (congestive heart failure) Code(s): I50.33 - ACUTE ON CHRONIC DIASTOLIC (CONGESTIVE) HEART FAILURE (2) ESRD needing dialysis Code(s): N18.6 - END STAGE RENAL DISEASE; Z99.2 - DEPENDENCE ON RENAL DIALYSIS (3) Encephalopathy Code(s): G93.40 - ENCEPHALOPATHY, UNSPECIFIED (4) HTN (hypertension) Code(s): I10 - ESSENTIAL (PRIMARY) HYPERTENSION Qualifiers: Hypertension type: essential hypertension Qualified Code(s): I10 - Essential (primary) hypertension (5) Peripheral arterial disease Code(s): I73.9 - PERIPHERAL VASCULAR DISEASE, UNSPECIFIED (6) Respiratory distress Code(s): R06.03 - ACUTE RESPIRATORY DISTRESS (7) Sepsis Code(s): A41.9 - SEPSIS, UNSPECIFIED ORGANISM Qualifiers: Sepsis type: sepsis due to unspecified organism Qualified Code(s): A41.9 - Sepsis, unspecified organism (8) Anemia Code(s): D64.9 - ANEMIA, UNSPECIFIED Qualifiers: Anemia type: other cause Other causes of anemia: acute posthemorrhagic Qualified Code(s): D62 - Acute posthemorrhagic anemia (9) Atrial fibrillation with RVR Code(s): I48.91 - UNSPECIFIED ATRIAL FIBRILLATION Assessment/Plan 1. Acute on Chronic Hypoxic and Hypercapneic Respiratory Failure 2. Acute on Chronic Diastolic Heart Failure with subendocardial ischemic injury 3. Elevated LFTs suspect congestive hepatopathy 4. Toxic metabolic encephelopathy with underlying dementia 5. ESRD on HD 6. PAD/Gangrene s/p [employer] 7. Atrial Fibrillation 8. Thrombocytopenia PLAN: 1. HD per renal with ultrafiltration 2. BIPAP as needed 3. Eliquis held, continue Atenolol 50 mg QD and Liptor 40 mg QHS. Consider ARB as hemodynamics tolerate 4. To consider Watchman OLGA occlusion device as outpatient if clinically feasible and agreeable Further plans are to follow Jacky Gonsalves MD
[2018-11-15] MEDS: PANTOPRAZOLE 40 MG TABLET (FP) PO SCH (11:10)
[2018-11-15] MEDS: SEVELAMER CARBONATE 800 MG TAB (FP) PO SCH ×3 (11:10→17:02)
[2018-11-15] MEDS: SILVER SULFADIAZINE 1% TOP CREAM 50 GM JAR TP SCH (11:10)
[2018-11-15] MEDS: ESCITALOPRAM OXALATE 10 MG TABLET (FP) PO SCH (11:10)
--- NOTE | 2018-11-15 11:21 | PN ---
Teaching Attending Note Name of Resident: Eila Canchola ATTENDING PHYSICIAN STATEMENT I saw and evaluated the patient. I reviewed the resident's note and discussed the case with the resident. I agree with the resident's findings and plan as documented. SUBJECTIVE: Pt seen and examined in the ICU. No events overnight. Denies shortness of breath or chest pain. Dialyzed this AM. OBJECTIVE: Vital Signs Period Temp Pulse Resp BP Sys/Medina Pulse Ox Last 24 Hr 97.2 F-98.2 F 85-104 13-20 92-149/54-93 98-98 Intake & Output 11/12/18 11/13/18 11/14/18 11/15/18 23:59 23:59 23:59 23:59 Intake Total 908 450 540 120 Output Total 70 Balance 908 380 540 120 Weight 72.9 kg 68.549 kg 71.486 kg Gen: NAD at rest Heart: RRR Lung: decreased breath sounds at the bases Abd: soft, nontender Ext: no edema, gangrenous toe CBC, BMP 11/15/18 05:30 Active Medications Acetaminophen (Tylenol Oral Solution -) 650 mg PO Q6H PRN PRN Reason: Pain Last Admin: 11/13/18 11:55 Dose: 650 mg Alprazolam (Xanax -) 0.25 mg PO HS PRN PRN Reason: ANXIETY Last Admin: 11/13/18 21:35 Dose: 0.25 mg Atenolol (Tenormin -) 50 mg PO DAILY [facility] Atorvastatin Calcium (Lipitor -) 40 mg PO HS M[facility]US Last Admin: 11/14/18 21:29 Dose: 40 mg Escitalopram Oxalate (Lexapro -) 10 mg PO DAILY [facility] Last Admin: 11/15/18 11:10 Dose: 10 mg Sodium Chloride (Normal Saline -) 250 mls @ 3,000 mls/hr IV PRN PRN PRN Reason: Hypotension during Dialysis Stop: 11/15/18 21:41 Lidocaine HCl (Xylocaine 2% Viscous Oral -) 20 ml MM Q6H PRN PRN Reason: ORAL PAIN/MOUTH SORES Last Admin: 11/10/18 04:46 Dose: 20 ml Pantoprazole Sodium (Protonix -) 40 mg PO DAILY [facility] Last Admin: 11/15/18 11:10 Dose: 40 mg Saliva Substitute (Mouthkote Solution) 1 applic MM Q1H PRN PRN Reason: ORAL PAIN/MOUTH SORES Last Admin: 11/09/18 23:32 Dose: 1 applic Sevelamer Carbonate (Renvela -) 800 mg PO TIDCM [facility] Last Admin: 11/15/18 11:10 Dose: 800 mg Silver Sulfadiazine (Silvadene -) 1 applic TP DAILY [facility] Last Admin: 11/15/18 11:10 Dose: 1 applic Trazodone HCl (Desyrel -) 50 mg PO HS [facility] Last Admin: 11/14/18 21:29 Dose: 50 mg ASSESSMENT AND PLAN: Acute on Chronic Hypoxic and Hypercapneic Respiratory Failure improving Acute on Chronic Diastolic Heart Failure +Troponins likely Demand Ischemia Elevated LFTs suspect congestive hepatopathy GI Bleed resolved Acute Blood Loss Anemia stable ESRD on HD 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
[2018-11-15 11:31] LABS: CREATININE 2.1 mg/dL (0.55-1.3)
--- NOTE | 2018-11-15 11:52 | PN ---
Progress Note (short form) - Note Progress Note: Renal follow up for ESRD Pt seen and examined in the ICU pt currently getting dialysis BP is low-normal, AVF with good flow UF goal is 3L pt without any acute complaints denies any cp, abd pain, sob, cough, N/V/D Vital Signs Temperature 98.2 F 11/15/18 07:10 Pulse Rate 90 11/15/18 10:50 Respiratory Rate 18 11/15/18 10:50 Blood Pressure 107/76 11/15/18 10:50 O2 Sat by Pulse Oximetry (%) 98 11/14/18 22:26 Intake & Output 11/12/18 11/13/18 11/14/18 11/15/18 23:59 23:59 23:59 23:59 Intake Total 908 450 540 120 Output Total 70 Balance 908 380 540 120 Weight 72.9 kg 68.549 kg 71.486 kg NAD irregular, no M/R Dec BS, no overt rales no Le edema CBC, BMP 11/15/18 05:30 11/15/18 10:45 Current Medications Acetaminophen (Tylenol Oral Solution -) 650 mg PO Q6H PRN PRN Reason: Pain Last Admin: 11/13/18 11:55 Dose: 650 mg Alprazolam (Xanax -) 0.25 mg PO HS PRN PRN Reason: ANXIETY Last Admin: 11/13/18 21:35 Dose: 0.25 mg Atenolol (Tenormin -) 50 mg PO DAILY [facility] Atorvastatin Calcium (Lipitor -) 40 mg PO HS [facility] Last Admin: 11/14/18 21:29 Dose: 40 mg Escitalopram Oxalate (Lexapro -) 10 mg PO DAILY [facility] Last Admin: 11/15/18 11:10 Dose: 10 mg Sodium Chloride (Normal Saline -) 250 mls @ 3,000 mls/hr IV PRN PRN PRN Reason: Hypotension during Dialysis Stop: 11/15/18 21:41 Lidocaine HCl (Xylocaine 2% Viscous Oral -) 20 ml MM Q6H PRN PRN Reason: ORAL PAIN/MOUTH SORES Last Admin: 11/10/18 04:46 Dose: 20 ml Pantoprazole Sodium (Protonix -) 40 mg PO DAILY [facility] Last Admin: 11/15/18 11:10 Dose: 40 mg Saliva Substitute (Mouthkote Solution) 1 applic MM Q1H PRN PRN Reason: ORAL PAIN/MOUTH SORES Last Admin: 11/09/18 23:32 Dose: 1 applic Sevelamer Carbonate (Renvela -) 800 mg PO TIDCM [facility] Last Admin: 11/15/18 11:10 Dose: 800 mg Silver Sulfadiazine (Silvadene -) 1 applic TP DAILY [facility] Last Admin: 11/15/18 11:10 Dose: 1 applic Trazodone HCl (Desyrel -) 50 mg PO HS [facility] Last Admin: 11/14/18 21:29 Dose: 50 mg 78 year old gentleman with hx of ESRD on HD, Colon Ca s/p resection, Afib, PVD, Dementia with recent hospital admission at [facility] for foot gangrene and PVD now presented from HD unit with AMS and hypotension. #ESRD on HD #Fluid overload with respiratory failure #CHF/Diastolic HF #PVD/LE gangrene #Thrombocytopenia #Anemia #Hyponatremia tolerating dialysis this AM with UF goal of 3L volume status is clinically improved Hgb is below goal, will continue Epogen with HD Vascular follow up supportive care Dose all meds for intermittent HD Thank you Armen Machado DO
--- NOTE | 2018-11-15 13:13 | PN ---
Progress Note, Physician - Current Medication List Current Medications: Active Medications Acetaminophen (Tylenol Oral Solution -) 650 mg PO Q6H PRN PRN Reason: Pain Last Admin: 11/13/18 11:55 Dose: 650 mg Alprazolam (Xanax -) 0.25 mg PO HS PRN PRN Reason: ANXIETY Last Admin: 11/13/18 21:35 Dose: 0.25 mg Atenolol (Tenormin -) 50 mg PO DAILY [facility] Atorvastatin Calcium (Lipitor -) 40 mg PO HS [facility] Last Admin: 11/14/18 21:29 Dose: 40 mg Escitalopram Oxalate (Lexapro -) 10 mg PO DAILY [facility] Last Admin: 11/15/18 11:10 Dose: 10 mg Sodium Chloride (Normal Saline -) 250 mls @ 3,000 mls/hr IV PRN PRN PRN Reason: Hypotension during Dialysis Stop: 11/15/18 21:41 Lidocaine HCl (Xylocaine 2% Viscous Oral -) 20 ml MM Q6H PRN PRN Reason: ORAL PAIN/MOUTH SORES Last Admin: 11/10/18 04:46 Dose: 20 ml Pantoprazole Sodium (Protonix -) 40 mg PO DAILY [facility] Last Admin: 11/15/18 11:10 Dose: 40 mg Saliva Substitute (Mouthkote Solution) 1 applic MM Q1H PRN PRN Reason: ORAL PAIN/MOUTH SORES Last Admin: 11/09/18 23:32 Dose: 1 applic Sevelamer Carbonate (Renvela -) 800 mg PO TIDCM [facility] Last Admin: 11/15/18 11:10 Dose: 800 mg Silver Sulfadiazine (Silvadene -) 1 applic TP DAILY [facility] Last Admin: 11/15/18 11:10 Dose: 1 applic Trazodone HCl (Desyrel -) 50 mg PO HS [facility] Last Admin: 11/14/18 21:29 Dose: 50 mg - Objective Vital Signs: Vital Signs Temperature 98.2 F 11/15/18 07:10 Pulse Rate 90 11/15/18 10:50 Respiratory Rate 18 11/15/18 10:50 Blood Pressure 107/76 11/15/18 10:50 O2 Sat by Pulse Oximetry (%) 98 11/15/18 09:00 Labs: CBC, BMP 11/15/18 05:30 11/15/18 10:45 INR, PTT INR 1.44 (0.83-1.09) H 11/14/18 05:30
--- NOTE | 2018-11-15 15:59 | SPA.PREOP ---
- PRE-OP NOTE Dx: Left 2nd toe demarcated/PAD. Planned Procedure: 2nd toe amputation Surgeon: Michelle Last Vital Signs Temp Pulse Resp BP Pulse Ox 98.2 F 90 18 107/76 98 11/15/18 07:10 11/15/18 10:50 11/15/18 10:50 11/15/18 10:50 11/15/18 09:00 Lab Results WBC 5.6 K/mm3 (4.0-10.0) 11/15/18 05:30 RBC 3.07 M/mm3 (4.00-5.60) L 11/15/18 05:30 Hgb 9.4 GM/dL (11.7-16.9) L 11/15/18 05:30 Hct 29.4 % (35.4-49) L 11/15/18 05:30 MCV 95.7 fl (80-96) 11/15/18 05:30 MCHC 31.9 g/dl (32.0-35.9) L 11/15/18 05:30 RDW 23.6 % (11.9-15.9) H 11/15/18 05:30 Plt Count 77 K/MM3 (134-434) L 11/15/18 05:30 Sodium 140 mmol/L (136-145) 11/15/18 05:30 Potassium 4.0 mmol/L (3.5-5.1) 11/15/18 05:30 Chloride 100 mmol/L (98-107) 11/15/18 05:30 Carbon Dioxide 30 mmol/L (21-32) 11/15/18 05:30 Anion Gap 10 MMOL/L (8-16) 11/15/18 05:30 BUN 10 mg/dL (7-18) 11/15/18 10:45 Creatinine 2.1 mg/dL (0.55-1.3) H 11/15/18 10:45 Random Glucose 88 mg/dL (74-106) 11/15/18 05:30 Calcium 10.2 mg/dL (8.5-10.1) H 11/15/18 05:30 Blood Type A POSITIVE 11/10/18 09:27 Antibody Screen Negative 11/10/18 09:27 INR 1.44 (0.83-1.09) H 11/14/18 05:30 Problem List - Problems (1) Peripheral arterial disease Assessment/Plan: 1. Make NPO after midnight except po meds 2. GI/DVT PPX 3. Medical optimization / clearance 4. Consent to be obtained by surgeon after risks, benefits and alternatives discussed with patient and or Health Care Proxy. Code(s): I73.9 - PERIPHERAL VASCULAR DISEASE, UNSPECIFIED
--- NOTE | 2018-11-15 19:40 | PN ---
Progress Note, Physician History of Present Illness: previous noted - Current Medication List Current Medications: Active Medications Acetaminophen (Tylenol Oral Solution -) 650 mg PO Q6H PRN PRN Reason: Pain Last Admin: 11/13/18 11:55 Dose: 650 mg Alprazolam (Xanax -) 0.25 mg PO HS PRN PRN Reason: ANXIETY Last Admin: 11/13/18 21:35 Dose: 0.25 mg Atenolol (Tenormin -) 50 mg PO DAILY [facility] Atorvastatin Calcium (Lipitor -) 40 mg PO HS [facility] Last Admin: 11/14/18 21:29 Dose: 40 mg Escitalopram Oxalate (Lexapro -) 10 mg PO DAILY [facility] Last Admin: 11/15/18 11:10 Dose: 10 mg Sodium Chloride (Normal Saline -) 250 mls @ 3,000 mls/hr IV PRN PRN PRN Reason: Hypotension during Dialysis Stop: 11/15/18 21:41 Lidocaine HCl (Xylocaine 2% Viscous Oral -) 20 ml MM Q6H PRN PRN Reason: ORAL PAIN/MOUTH SORES Last Admin: 11/10/18 04:46 Dose: 20 ml Pantoprazole Sodium (Protonix -) 40 mg PO DAILY [facility] Last Admin: 11/15/18 11:10 Dose: 40 mg Saliva Substitute (Mouthkote Solution) 1 applic MM Q1H PRN PRN Reason: ORAL PAIN/MOUTH SORES Last Admin: 11/09/18 23:32 Dose: 1 applic Sevelamer Carbonate (Renvela -) 800 mg PO TIDCM [facility] Last Admin: 11/15/18 17:02 Dose: 800 mg Silver Sulfadiazine (Silvadene -) 1 applic TP DAILY [facility] Last Admin: 11/15/18 11:10 Dose: 1 applic Trazodone HCl (Desyrel -) 50 mg PO HS [facility] Last Admin: 11/14/18 21:29 Dose: 50 mg - Objective Vital Signs: Vital Signs Temperature 98.2 F 11/15/18 14:00 Pulse Rate 90 11/15/18 18:00 Respiratory Rate 23 H 11/15/18 18:00 Blood Pressure 115/61 11/15/18 18:00 O2 Sat by Pulse Oximetry (%) 96 11/15/18 19:10 Constitutional: Yes: No Distress HENT: Yes: Atraumatic Neck: Yes: Supple Cardiovascular: Yes: Regular Rate and Rhythm Respiratory: Yes: CTA Bilaterally Gastrointestinal: Yes: Normal Bowel Sounds Extremities: Yes: Other (left toe gangrene) Neurological: Yes: Alert, Oriented Labs: CBC, BMP 11/15/18 05:30 11/15/18 10:45 INR, PTT INR 1.44 (0.83-1.09) H 11/14/18 05:30 Problem List - Problems (1) ESRD needing dialysis Assessment/Plan: on hd renal on board Code(s): N18.6 - END STAGE RENAL DISEASE; Z99.2 - DEPENDENCE ON RENAL DIALYSIS (2) HTN (hypertension) Assessment/Plan: monitor continue meds Code(s): I10 - ESSENTIAL (PRIMARY) HYPERTENSION Qualifiers: Hypertension type: essential hypertension Qualified Code(s): I10 - Essential (primary) hypertension (3) Peripheral arterial disease Assessment/Plan: for OR keshawn Code(s): I73.9 - PERIPHERAL VASCULAR DISEASE, UNSPECIFIED (4) Sepsis Code(s): A41.9 - SEPSIS, UNSPECIFIED ORGANISM Qualifiers: Sepsis type: sepsis due to unspecified organism Qualified Code(s): A41.9 - Sepsis, unspecified organism (5) Atrial fibrillation with RVR Code(s): I48.91 - UNSPECIFIED ATRIAL FIBRILLATION (6) GI (gastrointestinal bleed) Code(s): K92.2 - GASTROINTESTINAL HEMORRHAGE, UNSPECIFIED (7) Thrombocytopenia Code(s): D69.6 - THROMBOCYTOPENIA, UNSPECIFIED Assessment/Plan ASSESSMENT Acute on Chronic Hypoxic and Hypercapneic Respiratory Failure Volume Overload Acute on Chronic Diastolic Heart Failure Elevated LFTs suspect congestive hepatopathy r/o Pneumonia r/o UTI ESRD on HD PAD/Gangrene Atrial Fibrillation Thrombocytopenia cc time 35 min
[2018-11-15] MEDS: ATORVASTATIN CA 40 MG TABLET (FP) PO SCH (21:16)
[2018-11-15] MEDS ORDERED: traZODone HCL 100 MG TABLET (FP) PO SCH (22:00)
--- NOTE | 2018-11-16 06:59 | PN ---
Physical Exam: SUBJECTIVE: Patient seen and examined HD# 15 Overnight Events: No acute events overnight. Pt denies complaints this morning. OBJECTIVE: Lines: - PIV Drains: - None Supplemental Oxygen: Nasal Cannula @ 3 LPM I/Os not strictly monitored. Vital Signs Period Temp Pulse Resp BP Sys/Medina Pulse Ox Last 24 Hr 98.2 F-98.9 F 82-99 18-25 92-122/54-90 96-98 Physical Exams: GENERAL: The patient is awake, alert, and oriented to person and place. HEAD: Normal with no signs of trauma. EYES: Conjunctiva pink and not injected. NECK: Trachea midline, full range of motion, supple. LUNGS: Nasal cannula in place. Breath sounds equal, clear to auscultation bilaterally, no wheezes, no crackles, no accessory muscle use. HEART: Irregularly irregular rate and rhythm, S1, S2 without murmur, rub or gallop. ABDOMEN: Soft, nontender, nondistended EXTREMITIES: 2+ pulses, warm, well-perfused, no edema. Clean and dry bandages to both feet. PSYCH: Normal mood, normal affect. SKIN: [place], warm, and dry Laboratory Results - last 24 hr 11/15/18 10:45 BUN 10 Creatinine 2.1 H Active Medications Generic Name Dose Route Start Last Admin Trade Name Freq PRN Reason Stop Dose Admin Acetaminophen 650 mg 11/12/18 11:19 11/13/18 11:55 Tylenol Oral Solution - PO 650 mg Q6H PRN Administration Pain Alprazolam 0.25 mg 11/13/18 20:40 11/13/18 21:35 Xanax - PO 0.25 mg HS PRN Administration ANXIETY Atenolol 50 mg 11/11/18 10:00 Tenormin - PO DAILY [facility] Atorvastatin Calcium 40 mg 11/11/18 22:00 11/15/18 21:16 Lipitor - PO 40 mg HS [facility] Administration Escitalopram Oxalate 10 mg 11/11/18 10:00 11/15/18 11:10 Lexapro - PO 10 mg DAILY [facility] Administration Lidocaine HCl 20 ml 11/09/18 16:51 11/10/18 04:46 Xylocaine 2% Viscous Oral - MM 20 ml Q6H PRN Administration ORAL PAIN/MOUTH SORES Pantoprazole Sodium 40 mg 11/14/18 10:00 11/15/18 11:10 Protonix - PO 40 mg DAILY [facility] Administration Saliva Substitute 1 applic 11/09/18 16:49 11/09/18 23:32 Mouthkote Solution MM 1 applic Q1H PRN Administration ORAL PAIN/MOUTH SORES Sevelamer Carbonate 800 mg 11/11/18 12:00 11/15/18 17:02 Renvela - PO 800 mg TIDCM [facility] Administration Silver Sulfadiazine 1 applic 11/11/18 10:00 11/15/18 11:10 Silvadene - TP 1 applic DAILY [facility] Administration Trazodone HCl 50 mg 11/15/18 22:00 11/15/18 21:16 Desyrel - PO 50 mg HS [facility] Administration ASSESSMENT/PLAN: 78 yo M h/o PAD s/p revascularization of tibial arterial disease, HTN, colon CA s/p resection (25 yrs ago), afib on eliquis, UGIB, ESRD (M, W, F), renal osteodystrophy, dementia admitted to the ICU for acute on chronic hypercapnic respiratory failure, possible UGIB bleed, now being observed pre-operatively for toe amputation. GI: - Consulted Dr. Chew / Dr. Kong - H/H remains stable low suspicion for additional bleeding. Neuro: - Depression / Anxiety on Lexapro 10 mg/Trazodone and xanax prn Renal: - HD scheduled by nephrology service. - Mild hypomagnesemia noted on morning labs. Replenished IV. - Will continue to trend electrolytes. CV: - Consult Dr. Arroyo - HTN on atenolol 50 mg daily, which is being held secondary to normal BP measurements. Will need to be renally dosed when continued. - Afib w/ RVR, on atenolol, Apixaban now being held for expected surgical procedure today. Will discuss restarting tomorrow with GI service. Noted cardiology suggestion for outpatient Watchman device placement. - HLD on Atorvastatin 40mg HS. Vascular: - Consult Dr. Martinez - PAD with necrotic left second toe. No signs/symptoms of systemic infection. - Scheduled for amputation today. Pulm / Resp: - Stable, bipap QHS PRN, on NC now - Aspiration precautions FEN: - NPO pre-op, will consider advancing to soft diet post-op - Fluid and Sodium Restriction Prophylaxis: - For DVT: None while temporarily holding Apixaban Dispo: - Recommend care to be deescalated to med/surg floor. Elia Canchola MD, PGY1 ICU Consult Service Visit type - Emergency Visit Emergency Visit: No - New Patient This patient is new to me today: No - Critical Care Critical Care patient: Yes Total Critical Care Time (in minutes): 35 Critical Care Statement: The care of this patient involved high complexity decision making to prevent further life threatening deterioration of the patient 's condition and/or to evaluate & treat vital organ system(s) failure or risk of failure.
[2018-11-16 07:13] LABS: ANION GAP 8 MMOL/L (8-16); BLOOD UREA NITROGEN 24 mg/dL (7-18); CALCIUM 9.5 mg/dL (8.5-10.1); CHLORIDE 102 mmol/L (98-107); CO2 30 mmol/L (21-32); CREATININE 4.6 mg/dL (0.55-1.3); GLUCOSE,RANDOM 75 mg/dL (74-106); MAGNESIUM 1.7 mg/dL (1.8-2.4); PHOSPHOROUS 4.8 mg/dL (2.5-4.9); POTASSIUM 3.6 mmol/L (3.5-5.1); SODIUM 140 mmol/L (136-145)
--- NOTE | 2018-11-16 07:25 | PN ---
Progress Note (short form) - Note Progress Note: Chief Complaint: Events noted, notes reviewed, denies any chest pain or dyspnea , atrial fibrillation rate controlled, for surgery this AM History of Present Illness: Seen and examined in the ICU. Events noted, notes reviewed, denies any chest pain or dyspnea, atrial fibrillation rate controlled, for surgery this AM - Current Medication List Current Medications Acetaminophen (Tylenol Oral Solution -) 650 mg PO Q6H PRN PRN Reason: Pain Last Admin: 11/13/18 11:55 Dose: 650 mg Alprazolam (Xanax -) 0.25 mg PO HS PRN PRN Reason: ANXIETY Last Admin: 11/13/18 21:35 Dose: 0.25 mg Atenolol (Tenormin -) 50 mg PO DAILY [facility] Atorvastatin Calcium (Lipitor -) 40 mg PO HS [facility] Last Admin: 11/15/18 21:16 Dose: 40 mg Escitalopram Oxalate (Lexapro -) 10 mg PO DAILY [facility] Last Admin: 11/15/18 11:10 Dose: 10 mg Lidocaine HCl (Xylocaine 2% Viscous Oral -) 20 ml MM Q6H PRN PRN Reason: ORAL PAIN/MOUTH SORES Last Admin: 11/10/18 04:46 Dose: 20 ml Pantoprazole Sodium (Protonix -) 40 mg PO DAILY [facility] Last Admin: 11/15/18 11:10 Dose: 40 mg Saliva Substitute (Mouthkote Solution) 1 applic MM Q1H PRN PRN Reason: ORAL PAIN/MOUTH SORES Last Admin: 11/09/18 23:32 Dose: 1 applic Sevelamer Carbonate (Renvela -) 800 mg PO TIDCM [facility] Last Admin: 11/15/18 17:02 Dose: 800 mg Silver Sulfadiazine (Silvadene -) 1 applic TP DAILY [facility] Last Admin: 11/15/18 11:10 Dose: 1 applic Trazodone HCl (Desyrel -) 50 mg PO HS [facility] Last Admin: 11/15/18 21:16 Dose: 50 mg Review of Systems Cardiovascular: As noted above Respiratory: denies: Cough or Sputum Production Gastrointestinal: denies: Nausea, Vomiting, Diarrhea, Constipation or Abdominal Discomfort Musculoskeletal: No Symptoms Reported Endocrine: No Symptoms Reported - Objective Vital Signs: Last Vital Signs Temp Pulse Resp BP Pulse Ox 98.9 F 92 H 19 103/73 98 11/16/18 06:00 11/16/18 06:00 11/16/18 06:00 11/16/18 06:00 11/15/18 22:54 Intake & Output 11/13/18 11/14/18 11/15/18 11/16/18 23:59 23:59 23:59 23:59 Intake Total 450 540 390 200 Output Total 70 0 Balance 380 540 390 200 Weight 151 lb 2 oz 157 lb 9.6 oz 157 lb Neck: Supple Negative JVD No Bruit Cardiovascular: S1 S2 Irregularly Irregular Respiratory: Diminished Breath Sounds at the Bases Bilaterally Gastrointestinal: Soft Benign Normal Bowel Sounds Ext: Negative Edema Labs: ABG Results ABG pH 7.26 (7.35-7.45) L 11/04/18 11:00 ABG pCO2 at Pt Temp 51.2 mmHg (35-45) H 11/04/18 11:00 ABG pO2 at Pt Temp 130 mmHg (80-105) H 11/04/18 11:00 ABG HCO3 22.4 mmol/L (22-27) 11/04/18 11:00 ABG O2 Sat (Measured) 97.8 % (95-98) 11/04/18 11:00 ABG O2 Content 16.7 % vol (15-22) 11/04/18 11:00 ABG Base Excess -4.4 meq/l (-2-2) L 11/04/18 11:00 CBC, BMP 11/16/18 05:30 11/16/18 05:30 Hepatic Panel Total Bilirubin 1.0 mg/dL (0.2-1) 11/15/18 05:30 AST 20 U/L (15-37) 11/15/18 05:30 ALT 29 U/L (13-61) 11/15/18 05:30 Alkaline Phosphatase 114 U/L (45-117) 11/15/18 05:30 Albumin 3.1 g/dl (3.4-5.0) L 11/15/18 05:30 INR, PTT INR 1.44 (0.83-1.09) H 11/14/18 05:30 Assessment/Plan ASSESSMENT: 1. Acute on Chronic Hypoxic and Hypercapneic Respiratory Failure related to diastolic LV dysfunction, resolved 2. 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 Persistent atrial fibrillation [id number] score of 4, rate controlled 4. Toxic metabolic encephelopathy with underlying dementia 5. PAD post intervention with gangrene for amputation this AM 6. Hypercholesterolemia 7. History of abnormal/elevated LFTs suspect congestive hepatopathy, resolved 8. ESRD on HD 9. Thrombocytopenia PLAN: 1. Continue Tnormin 2. Continue Lipitor 3. HD as per renal service 4. A/C held pending completion of procedure, to consider Watchman OLGA occlusion device as outpatient as an alternative to A/C (if A/C is contraindicated) 5. There are no absolute contraindications in proceeding with planned surgical intervention considering that there is clinical evidence of ACS/active and/or de -compensated CHF/resolved and/or malignant ventricular arrhythmia Luigi Florence M.D.
[2018-11-16] MEDS: SEVELAMER CARBONATE 800 MG TAB (FP) PO SCH ×3 (07:28→17:19)
[2018-11-16] MEDS: ACETAMINOPHEN 650 MG/20.3 ML ORAL SOLUTION (CUPS) PO PRN ×3 (07:42→20:40)
[2018-11-16 08:18] LABS: BASO % 0.6 % (0-2.0); EOS % 1.6 % (0-4.5); HEMATOCRIT 29.4 % (35.4-49); HEMOGLOBIN 9.5 GM/dL (11.7-16.9); LYMPH % 18.3 % (8-40); MCH 30.9 pg (25.7-33.7); MCHC 32.4 g/dl (32.0-35.9); MEAN CELL VOLUME 95.3 fl (80-96); MEAN PLT VOLUME 10.5 fl (7.5-11.1); MONO % 19.4 % (3.8-10.2); NEUT % 60.1 % (42.8-82.8); PLATELET COUNT 78 K/MM3 (134-434); RBC 3.08 M/mm3 (4.00-5.60); RDW 22.6 % (11.9-15.9); WHITE BLOOD COUNT 5.8 K/mm3 (4.0-10.0)
[2018-11-16] MEDS ORDERED: MIDAZOLAM HCL 2 MG/2 ML SINGLE DOSE VIAL ONE (08:39)
[2018-11-16] MEDS ORDERED: ceFAZolin SODIUM 1 GM VIAL IVPB ONE (08:47)
[2018-11-16] MEDS ORDERED: LIDOCAINE HCL 1%, 10 MG/ML (20ML VIAL) ONE (08:52)
[2018-11-16 08:55] LABS: INR 1.41 (0.83-1.09); PROTHROMBIN TIME (PATIENT) 16.7 SEC (9.7-13.0)
[2018-11-16 08:57] LABS: ACTIVATED PTT 39.4 SECONDS (25.2-36.5)
[2018-11-16] MEDS ORDERED: LIDOCAINE HCL 1%, 10 MG/ML (20ML VIAL) INF ONE (09:06)
[2018-11-16] MEDS ORDERED: PROPOFOL 20 ML ONE ×2 (09:22)
--- NOTE | 2018-11-16 09:59 | OP ---
Operative Note - Note: Operative Date: 11/16/18 Pre-Operative Diagnosis: Gangrene left 1st and 2nd toes Operation: Amputation left 2nd toe. Partial amputation left 1st toe Findings: Viable tissue at amputation sites Post-Operative Diagnosis: Same as Pre-op Surgeon: Espinoza Martinez Anesthesiologist/ADMINISTRATION MANAGER: Amarilys Allen MD Anesthesia: Fractional Specimens Removed: left 1st and 2nd toes Estimated Blood Loss (mls): 10
--- NOTE | 2018-11-16 10:29 | OP ---
DATE OF OPERATION: 11/16/2018 SURGEON: Espinoza Kam MD PROCEDURE: Amputation left 2nd toe and partial amputation left 1st toe. PREOPERATIVE DIAGNOSIS: Gangrene left 1st and 2nd toes. POSTOPERATIVE DIAGNOSIS: Gangrene left 1st and 2nd toes. ANESTHESIA: Fractional. ANESTHESIOLOGIST: Amarilys Allen MD OPERATIVE FINDINGS: The left 2nd toe was necrotic from the PIP joint distally. The 1st toe was necrotic in the distal phalanx. Tissues appeared viable at the level of amputation. DESCRIPTION OF PROCEDURE: Following routine patient identification with side and site verification, intravenous sedation was established. The left foot was prepped with Betadine solution. Time-out was performed. Then 1% lidocaine was infiltrated at the base of the 1st and 2nd toes to affect a nerve block. Incision was then made in the 2nd toe through the skin of the proximal phalanx and carried down to bone sharply. The middle phalanx was transected with the bone cutter, and the specimen was removed. The skin and bone were then resected more proximally to remove all nonviable tissue and bone. The end of the bone was smooth with the rasp. The wound was irrigated with saline. The cautery was used to obtain hemostasis. The skin flaps were then closed with interrupted sutures of 4-0 nylon. Incision was then made in the 1st toe proximal to the nailbed with plantar flap of the distal phalanx skin. The distal phalanx was then resected through the joint. The cartilage on the end of the proximal phalanx was then excised with bone cutter. The end of the bone was smoothed with a rongeur and rasp. The plantar skin flap was trimmed for length. Tendon and joint capsule were also excised. The wound was irrigated with saline and closed with interrupted suture of 4-0 nylon. Sterile dressing consisting of Xeroform, gauze, fluffs, and Kerlix was applied, and the patient was taken to ICU in stable condition. ESPINOZA KAM M.D. [id number]
--- NOTE | 2018-11-16 11:43 | PN ---
Progress Note (short form) - Note Progress Note: Renal follow up for ESRD Pt seen and examined in the ICU s/p toe amputation this am awake and alert, gorggy no acute complaints denies any pain, or sob last had dialysis yesterday Vital Signs Temperature 98.4 F 11/16/18 10:30 Pulse Rate 90 11/16/18 10:30 Respiratory Rate 20 11/16/18 10:30 Blood Pressure 108/66 11/16/18 10:30 O2 Sat by Pulse Oximetry (%) 96 11/16/18 10:30 Intake & Output 11/13/18 11/14/18 11/15/18 11/16/18 23:59 23:59 23:59 23:59 Intake Total 450 540 390 350 Output Total 70 10 Balance 380 540 390 340 Weight 68.549 kg 71.486 kg 71.214 kg NAD irregular, no M/R Dec BS, no overt rales no Le edema left foot in dressing CBC, BMP 11/16/18 05:30 11/16/18 05:30 Current Medications Acetaminophen (Tylenol Oral Solution -) 650 mg PO Q6H PRN PRN Reason: Pain Last Admin: 11/16/18 07:42 Dose: 650 mg Alprazolam (Xanax -) 0.25 mg PO HS PRN PRN Reason: ANXIETY Last Admin: 11/13/18 21:35 Dose: 0.25 mg Atenolol (Tenormin -) 50 mg PO DAILY [facility] Atorvastatin Calcium (Lipitor -) 40 mg PO HS [facility] Last Admin: 11/15/18 21:16 Dose: 40 mg Escitalopram Oxalate (Lexapro -) 10 mg PO DAILY [facility] Last Admin: 11/15/18 11:10 Dose: 10 mg Lidocaine HCl (Xylocaine 2% Viscous Oral -) 20 ml MM Q6H PRN PRN Reason: ORAL PAIN/MOUTH SORES Last Admin: 11/10/18 04:46 Dose: 20 ml Pantoprazole Sodium (Protonix -) 40 mg PO DAILY [facility] Last Admin: 11/15/18 11:10 Dose: 40 mg Saliva Substitute (Mouthkote Solution) 1 applic MM Q1H PRN PRN Reason: ORAL PAIN/MOUTH SORES Last Admin: 11/09/18 23:32 Dose: 1 applic Sevelamer Carbonate (Renvela -) 800 mg PO TIDCM [facility] Last Admin: 11/16/18 07:28 Dose: Not Given Silver Sulfadiazine (Silvadene -) 1 applic TP DAILY [facility] Last Admin: 11/15/18 11:10 Dose: 1 applic Trazodone HCl (Desyrel -) 50 mg PO HS [facility] Last Admin: 11/15/18 21:16 Dose: 50 mg 78 year old gentleman with hx of ESRD on HD, Colon Ca s/p resection, Afib, PVD, Dementia with recent hospital admission at [facility] for foot gangrene and PVD now presented from HD unit with AMS and hypotension. #ESRD on HD #Fluid overload with respiratory failure #CHF/Diastolic HF #PVD/LE gangrene #Thrombocytopenia #Anemia #Hyponatremia from hypervolemia no acute need for SKEIN INSPECTOR today, next session planned for tomorrow pain control, wound care s/p toe amputation Renal diet, 1.2L fluid restriction will continue high dose DARON with HD for anemia continue phos binder with meals Thank you Armen Machado DO
--- NOTE | 2018-11-16 11:44 | PN ---
Teaching Attending Note Name of Resident: Elia Canchola ATTENDING PHYSICIAN STATEMENT I saw and evaluated the patient. I reviewed the resident's note and discussed the case with the resident. I agree with the resident's findings and plan as documented. SUBJECTIVE: Pt seen and examined in the ICU. s/p toe amputation this AM. OBJECTIVE: Vital Signs Period Temp Pulse Resp BP Sys/Medina Pulse Ox Last 24 Hr 98.2 F-98.9 F 82-95 16-23 85-115/42-88 94-98 Intake & Output 11/13/18 11/14/18 11/15/18 11/16/18 23:59 23:59 23:59 23:59 Intake Total 450 540 390 350 Output Total 70 10 Balance 380 540 390 340 Weight 68.549 kg 71.486 kg 71.214 kg Gen: NAD at rest Heart: irregular Lung: decreased breath sounds at the bases Abd: soft, nontender Ext: no edema CBC, BMP 11/16/18 05:30 11/16/18 05:30 Active Medications Acetaminophen (Tylenol Oral Solution -) 650 mg PO Q6H PRN PRN Reason: Pain Last Admin: 11/16/18 07:42 Dose: 650 mg Alprazolam (Xanax -) 0.25 mg PO HS PRN PRN Reason: ANXIETY Last Admin: 11/13/18 21:35 Dose: 0.25 mg Atenolol (Tenormin -) 50 mg PO DAILY [facility] Atorvastatin Calcium (Lipitor -) 40 mg PO HS [facility] Last Admin: 11/15/18 21:16 Dose: 40 mg Escitalopram Oxalate (Lexapro -) 10 mg PO DAILY [facility] Last Admin: 11/15/18 11:10 Dose: 10 mg Lidocaine HCl (Xylocaine 2% Viscous Oral -) 20 ml MM Q6H PRN PRN Reason: ORAL PAIN/MOUTH SORES Last Admin: 11/10/18 04:46 Dose: 20 ml Pantoprazole Sodium (Protonix -) 40 mg PO DAILY [facility] Last Admin: 11/15/18 11:10 Dose: 40 mg Saliva Substitute (Mouthkote Solution) 1 applic MM Q1H PRN PRN Reason: ORAL PAIN/MOUTH SORES Last Admin: 11/09/18 23:32 Dose: 1 applic Sevelamer Carbonate (Renvela -) 800 mg PO TIDCM [facility] Last Admin: 11/16/18 07:28 Dose: Not Given Silver Sulfadiazine (Silvadene -) 1 applic TP DAILY [facility] Last Admin: 11/15/18 11:10 Dose: 1 applic Trazodone HCl (Desyrel -) 50 mg PO HS [facility] Last Admin: 11/15/18 21:16 Dose: 50 mg ASSESSMENT AND PLAN: Acute on Chronic Hypoxic and Hypercapneic Respiratory Failure improving Acute on Chronic Diastolic Heart Failure +Troponins likely Demand Ischemia Elevated LFTs suspect congestive hepatopathy GI Bleed resolved Acute Blood Loss Anemia stable ESRD on HD PAD/Gangrene s/p GROUND CREWMAN Atrial Fibrillation Thrombocytopenia - monitor H/H, platelets - protonix - HD per renal - holding anticoagulation - f/u with GI regarding future anticoagulation - O2 to keep SpO2 >90% - DVT prophylaxis - can monitor on floor
[2018-11-16] MEDS: PANTOPRAZOLE 40 MG TABLET (FP) PO SCH (12:08)
[2018-11-16] MEDS: ESCITALOPRAM OXALATE 10 MG TABLET (FP) PO SCH (12:08)
[2018-11-16] MEDS: SILVER SULFADIAZINE 1% TOP CREAM 50 GM JAR TP SCH (12:08)
[2018-11-16] MEDS ORDERED: MAGNESIUM 1GM/D5W 100ML - 100 ML IVPB IVPB ONE (13:45)
[2018-11-16 13:56] LABS: ANISOCYTOSIS 1+; MACROCYTOSIS 1+; OVALOCYTE 1+; PLATELET ESTIMATE DECREASED
[2018-11-16] MEDS ORDERED: MORPHINE SULFATE 2 MG/ML VIAL IVPUSH ONE ×2 (14:47→18:15)
[2018-11-16] MEDS ORDERED: MORPHINE SULFATE 2 MG/ML VIAL ONE (14:49)
[2018-11-16 15:57] VITALS: BMI 23.8
--- NOTE | 2018-11-16 16:25 | PN.GI ---
GI Progress Note Subjective: No melena S/P toe amputations today - Objective Vital Signs: Vital Signs Temperature 98.6 F 11/16/18 13:40 Pulse Rate 87 11/16/18 14:40 Respiratory Rate 14 11/16/18 14:40 Blood Pressure 73/42 L 11/16/18 14:40 O2 Sat by Pulse Oximetry (%) 96 11/16/18 10:30 Constitutional: Calm Cardiovascular: Yes: Pulse Irregular (regular rate) Respiratory: Yes: Diminished (at bases b/l) Gastrointestinal Inspection: No: Distention ...Auscultate: Yes: Normoactive Bowel Sounds ...Palpate: Yes: Soft. No: Tenderness Edema: No (No LE edema) Neurological: Yes: Alert Labs: CBC, BMP 11/16/18 05:30 11/16/18 05:30 INR, PTT INR 1.41 (0.83-1.09) H 11/16/18 08:23 Hepatic Panel Total Bilirubin 1.0 mg/dL (0.2-1) 11/15/18 05:30 AST 20 U/L (15-37) 11/15/18 05:30 ALT 29 U/L (13-61) 11/15/18 05:30 Alkaline Phosphatase 114 U/L (45-117) 11/15/18 05:30 Albumin 3.1 g/dl (3.4-5.0) L 11/15/18 05:30 Problem List - Problems (1) GI bleed Assessment/Plan: No overt bleeding Asked to evaluate on reumption of A/C. This episode of melena was not investigated as Mr. Steiner's daughter / HCP opted for conservative management. The initial bleeding was less than a week ago at this point. If it is felt that A/C needs to be reinitiated from a medical standpoint, available evidence suggests waiting about 14 days from the initial bleeding episode may be the best balance of risk of rebleed / thromboembolism (next thu). Resumption of concomitant dual antiplatelet therapy needs to be reevaluated. Continue Protonix 40mg once daily for now. Code(s): K92.2 - GASTROINTESTINAL HEMORRHAGE, UNSPECIFIED Qualifiers: GI bleed type/associated pathology: melena Qualified Code(s): K92.1 - Melena
[2018-11-16] MEDS ORDERED: LIDOCAINE VISCOUS 2% ORAL/TOP 20 ML UNIT-DOSE CUP MM PRN (18:05)
[2018-11-16] MEDS ORDERED: LYTES/YERBA SANTA 60 ML SPRAY MM PRN (18:05)
[2018-11-16] MEDS ORDERED: ALPRAZolam 0.25 MG TABLET PO PRN (18:05)
--- NOTE | 2018-11-16 18:48 | PN ---
Progress Note, Physician - Current Medication List Current Medications: Active Medications Acetaminophen (Tylenol Oral Solution -) 650 mg PO Q6H PRN PRN Reason: PAIN LEVEL 1 - 3 Alprazolam (Xanax -) 0.25 mg PO HS PRN PRN Reason: ANXIETY Atorvastatin Calcium (Lipitor -) 40 mg PO HS [facility] Escitalopram Oxalate (Lexapro -) 10 mg PO DAILY [facility] Lidocaine HCl (Xylocaine 2% Viscous Oral -) 20 ml MM Q6H PRN PRN Reason: ORAL PAIN/MOUTH SORES Pantoprazole Sodium (Protonix -) 40 mg PO DAILY [facility] Saliva Substitute (Mouthkote Solution) 1 applic MM Q1H PRN PRN Reason: ORAL PAIN/MOUTH SORES Sevelamer Carbonate (Renvela -) 800 mg PO TIDCM [facility] Silver Sulfadiazine (Silvadene -) 1 applic TP DAILY [facility] Trazodone HCl (Desyrel -) 50 mg PO HS [facility] - Objective Vital Signs: Vital Signs Temperature 98.6 F 11/16/18 13:40 Pulse Rate 85 11/16/18 18:00 Respiratory Rate 16 11/16/18 18:00 Blood Pressure 94/44 L 11/16/18 18:00 O2 Sat by Pulse Oximetry (%) 96 11/16/18 10:30 Constitutional: Yes: No Distress HENT: Yes: Atraumatic Neck: Yes: Supple Cardiovascular: Yes: Regular Rate and Rhythm Respiratory: Yes: CTA Bilaterally Gastrointestinal: Yes: Normal Bowel Sounds Extremities: Yes: Other (L toe amputation 2 and 1) Neurological: Yes: Alert Labs: CBC, BMP 11/16/18 05:30 11/16/18 05:30 INR, PTT INR 1.41 (0.83-1.09) H 11/16/18 08:23 Problem List - Problems (1) ESRD needing dialysis Assessment/Plan: on hd renal on board Code(s): N18.6 - END STAGE RENAL DISEASE; Z99.2 - DEPENDENCE ON RENAL DIALYSIS (2) HTN (hypertension) Assessment/Plan: monitor continue meds Code(s): I10 - ESSENTIAL (PRIMARY) HYPERTENSION Qualifiers: Hypertension type: essential hypertension Qualified Code(s): I10 - Essential (primary) hypertension (3) Peripheral arterial disease Assessment/Plan: s/p surgery Code(s): I73.9 - PERIPHERAL VASCULAR DISEASE, UNSPECIFIED (4) Sepsis Assessment/Plan: not on abx...completed Code(s): A41.9 - SEPSIS, UNSPECIFIED ORGANISM Qualifiers: Sepsis type: sepsis due to unspecified organism Qualified Code(s): A41.9 - Sepsis, unspecified organism (5) Atrial fibrillation with RVR Code(s): I48.91 - UNSPECIFIED ATRIAL FIBRILLATION (6) GI (gastrointestinal bleed) Assessment/Plan: on iv protonix gi eval reviewed Code(s): K92.2 - GASTROINTESTINAL HEMORRHAGE, UNSPECIFIED (7) Thrombocytopenia Code(s): D69.6 - THROMBOCYTOPENIA, UNSPECIFIED Assessment/Plan ASSESSMENT Acute on Chronic Hypoxic and Hypercapneic Respiratory Failure Volume Overload Acute on Chronic Diastolic Heart Failure Elevated LFTs suspect congestive hepatopathy r/o Pneumonia r/o UTI ESRD on HD PAD/Gangrene Atrial Fibrillation Thrombocytopenia cc time 35 min
[2018-11-16] MEDS ORDERED: traZODone HCL 50 MG TABLET (FP) PO SCH (22:00)
[2018-11-16] MEDS ORDERED: ATORVASTATIN CA 40 MG TABLET (FP) PO SCH (22:00)
[2018-11-17] MEDS: ACETAMINOPHEN 650 MG/20.3 ML ORAL SOLUTION (CUPS) PO PRN ×3 (03:01→16:07)
[2018-11-17] MEDS: SEVELAMER CARBONATE 800 MG TAB (FP) PO SCH ×3 (08:13→18:13)
--- NOTE | 2018-11-17 08:33 | PN ---
Progress Note (short form) - Note Progress Note: POD 1 Wounds clean, flaps viable. OK for transfer to SNF I will see in 2 weeks in Wound care.
[2018-11-17] MEDS ORDERED: EPOETIN ALFA 10,000 UNIT/1 ML VIAL IVPUSH SCH (09:00)
[2018-11-17] MEDS ORDERED: SODIUM CHLORIDE 250 ML IV PRN (09:00)
--- NOTE | 2018-11-17 09:57 | PN ---
Progress Note, Physician History of Present Illness: patient post op doing well no new issues op note noted - Current Medication List Current Medications: Active Medications Acetaminophen (Tylenol Oral Solution -) 650 mg PO Q6H PRN PRN Reason: PAIN LEVEL 1 - 3 Last Admin: 11/17/18 09:13 Dose: 650 mg Alprazolam (Xanax -) 0.25 mg PO HS PRN PRN Reason: ANXIETY Last Admin: 11/16/18 21:07 Dose: 0.25 mg Atorvastatin Calcium (Lipitor -) 40 mg PO HS [facility] Last Admin: 11/16/18 21:05 Dose: 40 mg Epoetin Arsalan (Procrit -) 10,000 unit IVPUSH ONCE [facility] Stop: 11/17/18 13:00 Escitalopram Oxalate (Lexapro -) 10 mg PO DAILY [facility] Sodium Chloride (Normal Saline -) 250 mls @ 3,000 mls/hr IV PRN PRN PRN Reason: Hypotension during Dialysis Stop: 11/18/18 08:59 Lidocaine HCl (Xylocaine 2% Viscous Oral -) 20 ml MM Q6H PRN PRN Reason: ORAL PAIN/MOUTH SORES Pantoprazole Sodium (Protonix -) 40 mg PO DAILY [facility] Saliva Substitute (Mouthkote Solution) 1 applic MM Q1H PRN PRN Reason: ORAL PAIN/MOUTH SORES Sevelamer Carbonate (Renvela -) 800 mg PO TIDCM [facility] Last Admin: 11/17/18 08:13 Dose: 800 mg Silver Sulfadiazine (Silvadene -) 1 applic TP DAILY [facility] Trazodone HCl (Desyrel -) 50 mg PO [facility] Last Admin: 11/16/18 21:07 Dose: 50 mg - Objective Vital Signs: Vital Signs Temperature 97.8 F 11/17/18 08:50 Pulse Rate 90 11/17/18 08:55 Respiratory Rate 18 11/17/18 08:55 Blood Pressure 101/39 L 11/17/18 08:55 O2 Sat by Pulse Oximetry (%) 96 11/16/18 21:48 Constitutional: Yes: No Distress, Calm Cardiovascular: Yes: S1, S2 Respiratory: Yes: Regular, CTA Bilaterally Gastrointestinal: Yes: Normal Bowel Sounds, Soft Musculoskeletal: Yes: Other Extremities: Yes: Other Wound/Incision: Yes: Dressing Dry and Intact Neurological: Yes: Alert, Oriented Psychiatric: Yes: Alert, Oriented Labs: INR, PTT INR 1.41 (0.83-1.09) H 11/16/18 08:23 Assessment/Plan Acute on Chronic Hypoxic and Hypercapneic Respiratory Failure Volume Overload Acute on Chronic Diastolic Heart Failure Elevated LFTs suspect congestive hepatopathy r/o Pneumonia r/o UTI ESRD on HD PAD/Gangrene Atrial Fibrillation Thrombocytopenia dry gangrene left foot plan stable off of abx resp support dialysis close watch rest as per the team post op monitor closely
--- NOTE | 2018-11-17 09:58 | PN ---
Progress Note, Physician History of Present Illness: patient stable no new issues being dialysed - Current Medication List Current Medications: Active Medications Acetaminophen (Tylenol Oral Solution -) 650 mg PO Q6H PRN PRN Reason: PAIN LEVEL 1 - 3 Last Admin: 11/17/18 09:13 Dose: 650 mg Alprazolam (Xanax -) 0.25 mg PO HS PRN PRN Reason: ANXIETY Last Admin: 11/16/18 21:07 Dose: 0.25 mg Atorvastatin Calcium (Lipitor -) 40 mg PO HS [facility] Last Admin: 11/16/18 21:05 Dose: 40 mg Epoetin Arsalan (Procrit -) 10,000 unit IVPUSH ONCE [facility] Stop: 11/17/18 13:00 Escitalopram Oxalate (Lexapro -) 10 mg PO DAILY [facility] Sodium Chloride (Normal Saline -) 250 mls @ 3,000 mls/hr IV PRN PRN PRN Reason: Hypotension during Dialysis Stop: 11/18/18 08:59 Lidocaine HCl (Xylocaine 2% Viscous Oral -) 20 ml MM Q6H PRN PRN Reason: ORAL PAIN/MOUTH SORES Pantoprazole Sodium (Protonix -) 40 mg PO DAILY [facility] Saliva Substitute (Mouthkote Solution) 1 applic MM Q1H PRN PRN Reason: ORAL PAIN/MOUTH SORES Sevelamer Carbonate (Renvela -) 800 mg PO TIDCM [facility] Last Admin: 11/17/18 08:13 Dose: 800 mg Silver Sulfadiazine (Silvadene -) 1 applic TP DAILY [facility] Trazodone HCl (Desyrel -) 50 mg PO [facility] Last Admin: 11/16/18 21:07 Dose: 50 mg - Objective Vital Signs: Vital Signs Temperature 97.8 F 11/17/18 08:50 Pulse Rate 90 11/17/18 08:55 Respiratory Rate 18 11/17/18 08:55 Blood Pressure 101/39 L 11/17/18 08:55 O2 Sat by Pulse Oximetry (%) 96 11/16/18 21:48 Constitutional: Yes: No Distress, Calm Cardiovascular: Yes: Regular Rate and Rhythm Respiratory: Yes: Regular, CTA Bilaterally Gastrointestinal: Yes: Normal Bowel Sounds, Soft Musculoskeletal: Yes: WNL Extremities: Yes: Other Neurological: Yes: Alert Psychiatric: Yes: Alert Labs: INR, PTT INR 1.41 (0.83-1.09) H 11/16/18 08:23 Assessment/Plan Acute on Chronic Hypoxic and Hypercapneic Respiratory Failure Volume Overload Acute on Chronic Diastolic Heart Failure Elevated LFTs suspect congestive hepatopathy r/o Pneumonia r/o UTI ESRD on HD PAD/Gangrene Atrial Fibrillation Thrombocytopenia dry gangrene left foot plan stable off of abx resp support dialysis close watch rest as per the team post op monitor closely
[2018-11-17] MEDS ORDERED: ESCITALOPRAM OXALATE 10 MG TABLET (FP) PO SCH (10:00)
[2018-11-17] MEDS ORDERED: PANTOPRAZOLE 40 MG TABLET (FP) PO SCH (10:00)
[2018-11-17] MEDS ORDERED: SILVER SULFADIAZINE 1% TOP CREAM 50 GM JAR TP SCH (10:00)
[2018-11-17 10:09] LABS: HEMATOCRIT 30.2 % (35.4-49); HEMOGLOBIN 9.8 GM/dL (11.7-16.9); MCH 30.9 pg (25.7-33.7); MCHC 32.4 g/dl (32.0-35.9); MEAN CELL VOLUME 95.2 fl (80-96); MEAN PLT VOLUME 10.8 fl (7.5-11.1); PLATELET COUNT 76 K/MM3 (134-434); RBC 3.17 M/mm3 (4.00-5.60); RDW 22.3 % (11.9-15.9); WHITE BLOOD COUNT 6.7 K/mm3 (4.0-10.0)
[2018-11-17 10:25] LABS: ANION GAP 10 MMOL/L (8-16); BLOOD UREA NITROGEN 37 mg/dL (7-18); CALCIUM 10.2 mg/dL (8.5-10.1); CHLORIDE 100 mmol/L (98-107); CO2 27 mmol/L (21-32); GLUCOSE,RANDOM 158 mg/dL (74-106); PHOSPHOROUS 4.8 mg/dL (2.5-4.9); POTASSIUM 3.4 mmol/L (3.5-5.1); SODIUM 137 mmol/L (136-145)
--- NOTE | 2018-11-17 11:04 | PN ---
Progress Note, Physician History of Present Illness: pulmonary alert,no distress,-sob.pt on hd - Current Medication List Current Medications: Active Medications Acetaminophen (Tylenol Oral Solution -) 650 mg PO Q6H PRN PRN Reason: PAIN LEVEL 1 - 3 Last Admin: 11/17/18 09:13 Dose: 650 mg Alprazolam (Xanax -) 0.25 mg PO HS PRN PRN Reason: ANXIETY Last Admin: 11/16/18 21:07 Dose: 0.25 mg Atorvastatin Calcium (Lipitor -) 40 mg PO HS [facility] Last Admin: 11/16/18 21:05 Dose: 40 mg Epoetin Arsalan (Procrit -) 10,000 unit IVPUSH ONCE [facility] Stop: 11/17/18 13:00 Escitalopram Oxalate (Lexapro -) 10 mg PO DAILY [facility] Sodium Chloride (Normal Saline -) 250 mls @ 3,000 mls/hr IV PRN PRN PRN Reason: Hypotension during Dialysis Stop: 11/18/18 08:59 Lidocaine HCl (Xylocaine 2% Viscous Oral -) 20 ml MM Q6H PRN PRN Reason: ORAL PAIN/MOUTH SORES Pantoprazole Sodium (Protonix -) 40 mg PO DAILY [facility] Saliva Substitute (Mouthkote Solution) 1 applic MM Q1H PRN PRN Reason: ORAL PAIN/MOUTH SORES Sevelamer Carbonate (Renvela -) 800 mg PO TIDCM [facility] Last Admin: 11/17/18 08:13 Dose: 800 mg Silver Sulfadiazine (Silvadene -) 1 applic TP DAILY [facility] Trazodone HCl (Desyrel -) 50 mg PO HS [facility] Last Admin: 11/16/18 21:07 Dose: 50 mg - Objective Vital Signs: Vital Signs Temperature 97.8 F 11/17/18 08:50 Pulse Rate 95 H 11/17/18 10:25 Respiratory Rate 18 11/17/18 10:25 Blood Pressure 100/42 L 11/17/18 10:25 O2 Sat by Pulse Oximetry (%) 96 11/16/18 21:48 Constitutional: Yes: Well Nourished, Calm Eyes: Yes: WNL HENT: Yes: WNL Neck: Yes: WNL Cardiovascular: Yes: Pulse Irregular, S1, S2 Respiratory: Yes: CTA Bilaterally Gastrointestinal: Yes: Normal Bowel Sounds, Soft Extremities: Yes: WNL Edema: No Labs: CBC, BMP 11/17/18 09:20 11/17/18 09:20 INR, PTT INR 1.41 (0.83-1.09) H 11/16/18 08:23 Problem List - Problems (1) Acute on chronic diastolic CHF (congestive heart failure) Code(s): I50.33 - ACUTE ON CHRONIC DIASTOLIC (CONGESTIVE) HEART FAILURE (2) ESRD needing dialysis Code(s): N18.6 - END STAGE RENAL DISEASE; Z99.2 - DEPENDENCE ON RENAL DIALYSIS (3) Encephalopathy Code(s): G93.40 - ENCEPHALOPATHY, UNSPECIFIED (4) GI bleed Code(s): K92.2 - GASTROINTESTINAL HEMORRHAGE, UNSPECIFIED Qualifiers: GI bleed type/associated pathology: melena Qualified Code(s): K92.1 - Melena (5) HTN (hypertension) Code(s): I10 - ESSENTIAL (PRIMARY) HYPERTENSION Qualifiers: Hypertension type: essential hypertension Qualified Code(s): I10 - Essential (primary) hypertension (6) Peripheral arterial disease Code(s): I73.9 - PERIPHERAL VASCULAR DISEASE, UNSPECIFIED (7) Respiratory distress Code(s): R06.03 - ACUTE RESPIRATORY DISTRESS (8) Atrial fibrillation with RVR Code(s): I48.91 - UNSPECIFIED ATRIAL FIBRILLATION (9) Acute on chronic respiratory failure with hypoxia and hypercapnia Code(s): J96.21 - ACUTE AND CHRONIC RESPIRATORY FAILURE WITH HYPOXIA; J96.22 - ACUTE AND CHRONIC RESPIRATORY FAILURE WITH HYPERCAPNIA Assessment/Plan ASSESSMENT AND PLAN: Acute on Chronic Hypoxic and Hypercapneic Respiratory Failure improving Acute on Chronic Diastolic Heart Failure +Troponins likely Demand Ischemia Elevated LFTs suspect congestive hepatopathy GI Bleed resolved Acute Blood Loss Anemia stable ESRD on HD PAD/Gangrene s/p [employer]GRAM[employer] Atrial Fibrillation Thrombocytopenia - monitor H/H, platelets - protonix - HD per renal - holding anticoagulation - O2 to keep SpO2 >90% - DVT prophylaxis - Chest x-ray today DR RUCKER
[2018-11-17] MEDS ORDERED: traMADol HCL 50 MG TABLET PO PRN (12:33)
--- NOTE | 2018-11-17 14:17 | PN ---
Progress Note, Physician History of Present Illness: Resting on UT for acute on chronic hypercapneic respiratory failure, Hgb stable , no further bleeding. - Current Medication List Current Medications: Active Medications Acetaminophen (Tylenol Oral Solution -) 650 mg PO Q6H PRN PRN Reason: PAIN LEVEL 1 - 3 Last Admin: 11/17/18 09:13 Dose: 650 mg Alprazolam (Xanax -) 0.25 mg PO HS PRN PRN Reason: ANXIETY Last Admin: 11/16/18 21:07 Dose: 0.25 mg Atorvastatin Calcium (Lipitor -) 40 mg PO HS [facility] Last Admin: 11/16/18 21:05 Dose: 40 mg Escitalopram Oxalate (Lexapro -) 10 mg PO DAILY [facility] Last Admin: 11/17/18 13:02 Dose: 10 mg Sodium Chloride (Normal Saline -) 250 mls @ 3,000 mls/hr IV PRN PRN PRN Reason: Hypotension during Dialysis Stop: 11/18/18 08:59 Lidocaine HCl (Xylocaine 2% Viscous Oral -) 20 ml MM Q6H PRN PRN Reason: ORAL PAIN/MOUTH SORES Pantoprazole Sodium (Protonix -) 40 mg PO DAILY [facility] Last Admin: 11/17/18 13:02 Dose: 40 mg Saliva Substitute (Mouthkote Solution) 1 applic MM Q1H PRN PRN Reason: ORAL PAIN/MOUTH SORES Sevelamer Carbonate (Renvela -) 800 mg PO TIDCM [facility] Last Admin: 11/17/18 13:04 Dose: 800 mg Silver Sulfadiazine (Silvadene -) 1 applic TP DAILY [facility] Tramadol HCl (Ultram -) 50 mg PO Q8H PRN PRN Reason: PAIN LEVEL 7 - 10 Stop: 11/19/18 12:32 Last Admin: 11/17/18 13:00 Dose: 50 mg Trazodone HCl (Desyrel -) 50 mg PO [facility] Last Admin: 11/16/18 21:07 Dose: 50 mg - Objective Vital Signs: Vital Signs Temperature 97.9 F 11/17/18 10:00 Pulse Rate 101 H 11/17/18 13:01 Respiratory Rate 18 11/17/18 13:01 Blood Pressure 102/49 L 11/17/18 13:01 O2 Sat by Pulse Oximetry (%) 97 11/17/18 09:00 Constitutional: Yes: No Distress, Calm, Thin Neck: Yes: Supple Cardiovascular: Yes: Tachycardia, Pulse Irregular Respiratory: Yes: Regular, CTA Bilaterally Gastrointestinal: Yes: Normal Bowel Sounds, Soft Extremities: Yes: Amputation (Left toe amputations) Edema: No Wound/Incision: Yes: Clean/Dry Labs: CBC, BMP 11/17/18 09:20 11/17/18 09:20 INR, PTT INR 1.41 (0.83-1.09) H 11/16/18 08:23 Problem List - Problems (1) ESRD needing dialysis Code(s): N18.6 - END STAGE RENAL DISEASE; Z99.2 - DEPENDENCE ON RENAL DIALYSIS (2) HTN (hypertension) Code(s): I10 - ESSENTIAL (PRIMARY) HYPERTENSION Qualifiers: Hypertension type: essential hypertension Qualified Code(s): I10 - Essential (primary) hypertension (3) Peripheral arterial disease Code(s): I73.9 - PERIPHERAL VASCULAR DISEASE, UNSPECIFIED (4) Anemia Code(s): D64.9 - ANEMIA, UNSPECIFIED Qualifiers: Anemia type: other cause Other causes of anemia: acute posthemorrhagic Qualified Code(s): D62 - Acute posthemorrhagic anemia (5) Atrial fibrillation with RVR Code(s): I48.91 - UNSPECIFIED ATRIAL FIBRILLATION (6) Gangrene of toe of left foot Code(s): I96 - GANGRENE, NOT ELSEWHERE CLASSIFIED (7) Thrombocytopenia Code(s): D69.6 - THROMBOCYTOPENIA, UNSPECIFIED Assessment/Plan 07/01/2018 Echo: Normal LV size and fxn LVEF 55-60%, normal RV size and fxn, mod LAE, mild [place], tr MR, mild-mod TR RVSP 32 mmHg 1. Acute on Chronic Hypoxic and Hypercapneic Respiratory Failure related to diastolic LV dysfunction, resolved 2. 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 Persistent atrial fibrillation [id number] score of 4, rate controlled 4. Toxic metabolic encephelopathy with underlying dementia 5. PAD post intervention with gangrene post partial left 1st and complete 2nd toe amputation 6. Hypercholesterolemia 7. History of abnormal/elevated LFTs suspect congestive hepatopathy, resolved 8. ESRD on HD 9. Thrombocytopenia PLAN: 1. Resume Tenormin 50 qd 2. Continue Lipitor 40 qhs 3. HD as per renal service 4. A/C held pending hemostasis, will resume Eliquis 2.5 bid 14 days from initial bleed per GI recs. 5. May be d/james with f/u in office
--- NOTE | 2018-11-17 14:33 | PN ---
Progress Note (short form) - Note Progress Note: Renal follow up for ESRD Pt seen and examined during dialysis BP low 90's systolic UF goal is 3L bath changed to 3k AVF with good flow c/o pain in right heel Vital Signs Temperature 97.9 F 11/17/18 10:00 Pulse Rate 101 H 11/17/18 13:01 Respiratory Rate 18 11/17/18 13:01 Blood Pressure 102/49 L 11/17/18 13:01 O2 Sat by Pulse Oximetry (%) 97 11/17/18 09:00 Intake & Output 11/14/18 11/15/18 11/16/18 11/17/18 23:59 23:59 23:59 23:59 Intake Total 540 390 890 490 Output Total 10 0 Balance 540 390 880 490 Weight 68.549 kg 71.486 kg 71.214 kg 70.942 kg NAD irregular, no M/R Dec BS, no overt rales no Le edema left foot in dressing, right heel in dressing CBC, BMP 11/17/18 09:20 11/17/18 09:20 Current Medications Acetaminophen (Tylenol Oral Solution -) 650 mg PO Q6H PRN PRN Reason: PAIN LEVEL 1 - 3 Last Admin: 11/17/18 09:13 Dose: 650 mg Alprazolam (Xanax -) 0.25 mg PO HS PRN PRN Reason: ANXIETY Last Admin: 11/16/18 21:07 Dose: 0.25 mg Atorvastatin Calcium (Lipitor -) 40 mg PO HS [facility] Last Admin: 11/16/18 21:05 Dose: 40 mg Escitalopram Oxalate (Lexapro -) 10 mg PO DAILY [facility] Last Admin: 11/17/18 13:02 Dose: 10 mg Sodium Chloride (Normal Saline -) 250 mls @ 3,000 mls/hr IV PRN PRN PRN Reason: Hypotension during Dialysis Stop: 11/18/18 08:59 Lidocaine HCl (Xylocaine 2% Viscous Oral -) 20 ml MM Q6H PRN PRN Reason: ORAL PAIN/MOUTH SORES Pantoprazole Sodium (Protonix -) 40 mg PO DAILY [facility] Last Admin: 11/17/18 13:02 Dose: 40 mg Saliva Substitute (Mouthkote Solution) 1 applic MM Q1H PRN PRN Reason: ORAL PAIN/MOUTH SORES Sevelamer Carbonate (Renvela -) 800 mg PO TIDCM [facility] Last Admin: 11/17/18 13:04 Dose: 800 mg Silver Sulfadiazine (Silvadene -) 1 applic TP DAILY [facility] Tramadol HCl (Ultram -) 50 mg PO Q8H PRN PRN Reason: PAIN LEVEL 7 - 10 Stop: 11/19/18 12:32 Last Admin: 11/17/18 13:00 Dose: 50 mg Trazodone HCl (Desyrel -) 50 mg PO HS [facility] Last Admin: 11/16/18 21:07 Dose: 50 mg 78 year old gentleman with hx of ESRD on HD, Colon Ca s/p resection, Afib, PVD, Dementia with recent hospital admission at [facility] for foot gangrene and PVD now presented from HD unit with AMS and hypotension. #ESRD on HD #Fluid overload with respiratory failure #CHF/Diastolic HF #PVD/LE gangrene #Thrombocytopenia #Anemia #Hyponatremia from hypervolemia tolerating HD well this AM volume status is much improved will give DARON with HD start Ultram PRN for pain control wound care Vascular follow up discharge planning as per primary Thank you Armen Machado DO
[2018-11-17] MEDS ORDERED: ATENOLOL 50 MG TABLET (FP) PO SCH (14:45)
[2018-11-17] MEDS ORDERED: ATENOLOL 25 MG TABLET (FP) PO SCH (15:00)
--- NOTE | 2018-11-17 15:45 | DS ---
Physical Examination Vital Signs: Vital Signs Temperature 97.9 F 11/17/18 10:00 Pulse Rate 101 H 11/17/18 13:01 Respiratory Rate 18 11/17/18 13:01 Blood Pressure 102/49 L 11/17/18 13:01 O2 Sat by Pulse Oximetry (%) 97 11/17/18 09:00 Constitutional: Yes: No Distress HENT: Yes: Atraumatic Neck: Yes: Supple Cardiovascular: Yes: Regular Rate and Rhythm Respiratory: Yes: CTA Bilaterally Gastrointestinal: Yes: Normal Bowel Sounds Extremities: Yes: Other (both feet in dressing) Neurological: Yes: Alert, Oriented Labs: CBC, BMP 11/17/18 09:20 11/17/18 09:20 Discharge Summary Reason For Visit: ESRD NEEDING DIALYSIS,SEPSIS,PERIPHERAL ARTERIAL D Current Active Problems Acute on chronic diastolic CHF (congestive heart failure) (Acute) Acute on chronic respiratory failure with hypoxia and hypercapnia (Acute) Anxiety (Acute) ESRD needing dialysis (Acute) Encephalopathy (Acute) GI (gastrointestinal bleed) (Acute) GI bleed (Acute) HTN (hypertension) (Acute) Peripheral arterial disease (Acute) Respiratory distress (Acute) Sepsis (Acute) Condition: Guarded - Instructions Diet, Activity, Other Instructions: Dress toe wounds with Betadine paint and DSD every other day. Follow up with Dr Martinez in the wound care clinic 2 weeks post op. Referrals: Espinoza Martinez MD [Staff Physician] - 2 Weeks ([facility] [phone] ) - Home Medications Comprehensive Discharge Medication List: Ambulatory Orders Alprazolam [Xanax] 0.5 mg PO BID PRN 08/15/16 Atenolol [Tenormin -] 50 mg PO DAILY 08/15/16 Zolpidem Tartrate [Ambien] 5 mg PO HS 08/15/16 traZODone HCL [Trazodone HCl] 50 mg PO HS 08/15/16 Docusate Sodium [Colace] 2 cap PO HS 06/30/18 Escitalopram Oxalate [Lexapro -] 10 mg PO DAILY 06/30/18 Memantine HCl [Namenda -] 5 mg PO BID 06/30/18 Polyethylene Glycol 3350 [Laxaclear] 1,700 gm PO DAILY 06/30/18 Sennosides [Senna Concentrate] 8.6 mg PO DAILY 06/30/18 Sevelamer Carbonate [Renvela -] 800 mg PO TID 06/30/18 Vit B Comp No.3/Folic/C/Biotin [Nephro-Louie Rx Tablet] 1 each PO DAILY 06/30/18 Acetaminophen [Tylenol .Regular Strength -] 650 mg PO Q6H PRN tablet 08/04/18 Aspirin Coated [Ecotrin -] 81 mg PO DAILY tablet.ec 08/04/18 Aspirin [ASA -] 81 mg PO DAILY #30 tab.chew 08/04/18 Atorvastatin Ca [Lipitor] 40 mg PO HS tablet 08/04/18 Collagenase Clostridium Hist. [Santyl -] 1 applic TP DAILY tube 08/04/18 Cinacalcet HCl [Sensipar -] 60 mg PO DAILY 11/01/18 Clopidogrel Bisulfate [Plavix] 75 mg PO DAILY 11/01/18 Oxycodone HCl/Acetaminophen [Percocet 5-325 mg Tablet] 1 tab PO TID PRN dc snf fy dr carpenter 2 weeks as per his instructions
--- NOTE | 2018-11-17 17:58 | PATH ---
Surgical Pathology Report Patient Name: KEELEY MOCK [facility]. Rec. #: [id number] /Age/Gender: 1940 (Age: 78) / M Account: [id number] Location: 4 W TELEMETRY U Taken: 11/16/2018 Received: 11/16/2018 Reported: 11/17/2018 Physicians: Ave Hoover M.D. Specimen(s) Received LEFT 2ND TOE AND PARTIAL LEFT 1ST TOE Clinical History Gangrene first and second left toe Final Diagnosis PARTIAL FIRST TOE, SECOND TOE, LEFT, AMPUTATION: FIRST AND SECOND DIGITS WITH MARKED ACUTE AND CHRONIC GANGRENOUS INFLAMMATION AND NECROSIS EXTENDING TO SURGICAL MARGINS. UNDERLYING BONE WITH CHRONIC AND MARKED ACUTE OSTEOMYELITIS. SEPARATELY SUBMITTED BONE, SKIN/ SOFT TISSUE FRAGMENTS ARE VIABLE. Electronically Signed Joceline Parra M.D. Gross Description Received in formalin labeled "left second toe, partial left first toe," are 2 toe amputation specimens measuring 3.0 x 2.0 x 1.3 cm and 2.5 x 2.5 x 1.6 cm. Both toe amputations display a black-camarena, gangrenous lesion extending to 0.1 cm from the skin and soft tissue margin. The lesions involve the underlying bone. The resection margin of the first toe is inked blue and the resection margin of the second toe is inked red. Separately received within the same container are 2 undesignated portions of skin with underlying soft tissue as well as 2 undesignated portions of bone, likely consistent with the true margins. Electrocardiograph Technician sections are submitted in 3 cassettes as follows: 1-full face section of first digit, following decalcification; 2-full face section of second digit, following decalcification; 3-patient relations representative separately received skin, soft tissue and bone, following decalcification. DL/11/16/2018 saudi/11/16/2018
[2018-11-17 18:31] VITALS: BP 93/44; PULSE 95; TEMP 97.5
--- NOTE | 2018-11-17 18:38 | PN.GI ---
GI Progress Note Subjective: Pt seen/examined at bedside, undergoing HD. Pt feeling tired, denies abdominal pain, n/v, no further episodes of bleeding reported. Brown stool per nursing staff. Appetite good. - Objective Vital Signs: Vital Signs Temperature 97.5 F L 11/17/18 17:00 Pulse Rate 95 H 11/17/18 17:00 Respiratory Rate 20 11/17/18 17:00 Blood Pressure 93/44 L 11/17/18 17:00 O2 Sat by Pulse Oximetry (%) 97 11/17/18 09:00 Constitutional: Well Nourished, No Distress, Calm Cardiovascular: Yes: WNL, Pulse Irregular Respiratory: Yes: WNL, Regular, CTA Bilaterally Gastrointestinal Inspection: Yes: WNL ...Palpate: Yes: Other (Abd soft, nt, nd) Labs: CBC, BMP 11/17/18 09:20 11/17/18 09:20 INR, PTT INR 1.41 (0.83-1.09) H 11/16/18 08:23 Problem List - Problems (1) Anemia Assessment/Plan: 78yo male h/o A fib on eliquis, ESRD on HD, Colon ca s/p resection, PAD, foot gangrene s/p recent LLE angioplasty presenting with weakness and AMS with acute anemia and reported melena. Prior EGD in 06/2018 revealing non bleeding antral ulcer. Brown stool noted on exam, no further episodes of bleeding reported. Hb stable. Pts HCP had opted for conservative measures. -Continue to monitor Hb and for evidence of bleeding -PPI daily -Per cardiology, plan to resume eliquis in 14 days from initial bleeding episode -Avoid non-essential NSAIDs -If further episodes of bleeding or drop in Hb in the interim, please notify GI Code(s): D64.9 - ANEMIA, UNSPECIFIED Qualifiers: Anemia type: other cause Other causes of anemia: acute posthemorrhagic Qualified Code(s): D62 - Acute posthemorrhagic anemia
== END 2018-11-17 19:15 | DRG 853 ==
LOC: JER 13:23 → JERBED 16:32 → J2W 11-02 18:56 → JICU 11-02 21:24 → J4W 11-16 18:24
PROVIDERS: ADMIT Internal Medicine; ATTEND Internal Medicine
PROC: 30233N1 Transfusion of Nonautologous Red Blood Cells into Peripheral Vein, Percutaneous Approach (ICD-10-PCS; 2018-11-10)
PROC: 0Y6S0Z2 Detachment at Left 2nd Toe, Mid, Open Approach (ICD-10-PCS; principal; 2018-11-16 08:30)
PROC: 0Y6Q0Z1 Detachment at Left 1st Toe, High, Open Approach (ICD-10-PCS; 2018-11-16 08:30)
PROC: 5A1D70Z Performance of Urinary Filtration, Intermittent, Less than 6 Hours Per Day (ICD-10-PCS; 2018-11-17)
DX: A41.9 Sepsis, unspecified organism (principal); N18.6 End stage renal disease; I50.33 Acute on chronic diastolic (congestive) heart failure; G93.41 Metabolic encephalopathy; J18.9 Pneumonia, unspecified organism; J96.21 Acute and chronic respiratory failure with hypoxia; J96.22 Acute and chronic respiratory failure with hypercapnia; I13.2 Hypertensive heart and chronic kidney disease with heart failure and with stage 5 chronic kidney disease, or end stage renal disease; I96 Gangrene, not elsewhere classified; L97.929 Non-pressure chronic ulcer of unspecified part of left lower leg with unspecified severity; L97.919 Non-pressure chronic ulcer of unspecified part of right lower leg with unspecified severity; N39.0 Urinary tract infection, site not specified; E87.1 Hypo-osmolality and hyponatremia; I24.8 Other forms of acute ischemic heart disease; K92.2 Gastrointestinal hemorrhage, unspecified; D62 Acute posthemorrhagic anemia; D69.6 Thrombocytopenia, unspecified; E87.70 Fluid overload, unspecified; I95.9 Hypotension, unspecified; F41.8 Other specified anxiety disorders; E87.6 Hypokalemia; Z99.2 Dependence on renal dialysis
CPT/HCPCS: 36415; 36430; 36600; 70450-TC; 71045-TC-FY; 76700-TC; 80048; 80053; 80061; 81003; 82272; 82565; 82803; 83605; 83721; 83735; 84100; 84443; 84484; 84520; 85025; 85027; 85610; 85730; 86704; 86706; 86708; 86803; 86850; 86900; 86901; 86922; 87040; 87086; 87340; 87804; 88305-TC; 88311-TC; 93005; 93010; 94660; 97161-GP; 99285-25; J0885; J1644; P9038; P9047; P9058

== ENCOUNTER 2018-11-26 17:23 | Emergency (ER) | payer OTHER, MEDICARE ==
[2018-11-26 17:49] VITALS: TEMP 98.7; BMI 24.6
--- NOTE | 2018-11-26 18:12 | PDOC ---
History of Present Illness - General Chief Complaint: AV shunt bleeding Stated Complaint: PORT BLEEDING Time Seen by Provider: 11/26/18 17:53 - History of Present Illness Initial Comments: 11/26/18 18:19 The patient is an 78 year old male with a history of HTN, afib, ESRD on dialysis MWF, dementia who presents for evaluation of bleeding from his AV fistula site. The patient reports that he completed his dialysis today and immediately after experienced bleeding from his right AV fistula site prompting his presentation to the ED for further evaluation. A pressure clamp was applied en route to the ED. He otherwise denies fevers, chills, lightheadedness , SOB, chest pain, nausea, vomiting, abdominal pain, or changes with urination or bowel movements. Past History - Past Medical History Allergies/Adverse Reactions: Allergies Allergy/AdvReac Type Severity Reaction Status Date / Time No Known Allergies Allergy Verified 11/01/18 13:43 Home Medications: Ambulatory Orders Alprazolam [Xanax] 0.5 mg PO BID PRN 08/15/16 Atenolol [Tenormin -] 50 mg PO DAILY 08/15/16 Zolpidem Tartrate [Ambien] 5 mg PO HS 08/15/16 traZODone HCL [Trazodone HCl] 50 mg PO HS 08/15/16 Docusate Sodium [Colace] 2 cap PO HS 06/30/18 Escitalopram Oxalate [Lexapro -] 10 mg PO DAILY 06/30/18 Memantine HCl [Namenda -] 5 mg PO BID 06/30/18 Polyethylene Glycol 3350 [Laxaclear] 1,700 gm PO DAILY 06/30/18 Sennosides [Senna Concentrate] 8.6 mg PO DAILY 06/30/18 Sevelamer Carbonate [Renvela -] 800 mg PO TID 06/30/18 Vit B Comp No.3/Folic/C/Biotin [Nephro-Louie Rx Tablet] 1 each PO DAILY 06/30/18 Acetaminophen [Tylenol .Regular Strength -] 650 mg PO Q6H PRN tablet 08/04/18 Aspirin Coated [Ecotrin -] 81 mg PO DAILY tablet.ec 08/04/18 Aspirin [ASA -] 81 mg PO DAILY #30 tab.chew 08/04/18 Atorvastatin Ca [Lipitor] 40 mg PO HS tablet 08/04/18 Collagenase Clostridium Hist. [Santyl -] 1 applic TP DAILY tube 08/04/18 Cinacalcet HCl [Sensipar -] 60 mg PO DAILY 11/01/18 Clopidogrel Bisulfate [Plavix] 75 mg PO DAILY 11/01/18 Oxycodone HCl/Acetaminophen [Percocet 5-325 mg Tablet] 1 tab PO TID PRN Cancer: Yes (COLON AND PROSTATE) Cardiac Disorders: Yes (A.FIB) COPD: No Dementia: Yes Dialysis: Yes (M-W-F,RT ARM FISTULA) GI Disorders: Yes (G-I bleed, colon resection) Disorders: Yes (ESRD, m-w-f) HTN: Yes Psychiatric Problems: Yes (ANXEITY) - Surgical History Abdominal Surgery: Yes (COLON CA) Orthopedic Surgery: Yes - Suicide/Smoking/Psychosocial Hx Smoking History: Never smoked Have you smoked in the past 12 months: No Information on smoking cessation initiated: No Hx Alcohol Use: No Drug/Substance Use Hx: No Substance Use Type: None Hx Substance Use Treatment: No Review of Systems - Review of Systems Comments:: 11/26/18 18:23 Constitutional: No fevers, chills, fatigue, malaise HEENT: No Rhinorrhea, nasal congestion, visual changes Cardiovascular: No chest pain, syncope, palpitations, lightheadedness Respiratory: No Cough, SOB, Hemoptysis, Gastrointestinal: No Abdominal pain, Nausea, Vomiting, Constipation, Diarrhea, Melena Genitourinary: No Dysuria, Frequency, Urgency, Hesitancy, Hematuria, Flank pain Musculoskeletal: Chronic left shoulder pain. No Myalgia, arthralgia Skin: Bleeding right AV fistula. No rashes, itching, bruising, pallor Neurologic: No Headache, Dizziness, Numbness, Weakness, or Tingling Psychiatric: No Hallucinations. No SI or HI *Physical Exam - Vital Signs Last Vital Signs Temp Pulse Resp BP Pulse Ox 98.7 F 75 16 123/68 98 11/26/18 17:45 11/26/18 17:45 11/26/18 17:45 11/26/18 17:45 11/26/18 17:45 - Physical Exam Comments: 11/26/18 18:27 General Appearance: Nourished. No Apparent Distress HEENT: No Pharyngeal Erythema, Tonsillar Exudate, Tonsillar Erythema Neck: No Cervical Lymphadenopathy Respiratory/Chest: Lungs Clear, Normal Breath Sounds. No Crackles, Rales, Rhonchi, Wheezing Cardiovascular: Regular Rhythm, Regular Rate. No Murmur, Gallops, Rubs Gastrointestinal/Abdominal: Normal Bowel Sounds, Soft. No Guarding, Rebound, Tenderness Musculoskeletal: No CVA Tenderness Extremity: Venous oozing from the right AV fistula. Palpable thrill above and below bleeding site. Normal Capillary Refill Integumentary: Normal Color, Dry, Warm Neurologic: Fully Oriented, Alert, Normal Mood/Affect, Normal Response, Medical Decision Making - Medical Decision Making 11/26/18 18:29 The patient is an 78 year old male with a history of HTN, afib, ESRD on dialysis MWF, dementia who presents for evaluation of bleeding from his AV fistula site. The patient was treated with surgicell and xeroform dressing and pressure kerlex applied to the bleeding site. It is likely his continued bleeding is due to the patient being on aspirin and plavix and receiving heparin for his dialysis. We will continue to monitor and reassess while here in the ED. 11/26/18 19:13 Hemostasis has been obtained and we are comfortable discharging the patient home with renal follow up. Patient and family made aware of impression and plan , return precautions discussed including but not limited to worsening pain or symptoms, fevers, or signs of infection, chest pain, respiratory distress, inability to tolerate oral intake, dehydration, syncope, or neurologic changes. The patient is to follow up with PMD and specialist as recommended within 2-3 days, follow up information provided and the patient will call for an appointment. The patient is to take medications as instructed for duration of time and continue with supportive care, avoid triggers and precipitants. Patient is safe for outpatient follow-up. *DC/Admit/Observation/Transfer Diagnosis at time of Disposition: AV fistula - Discharge Dispostion Disposition: HOME Condition at time of disposition: Stable Decision to Admit order: No - Referrals - Patient Instructions Printed Discharge Instructions: DI for Arteriovenous Fistula for Dialysis Additional Instructions: 1) Please follow-up with your primary care doctor and Renal specialist in the next 2-3 days. Please call tomorrow to schedule a follow up appointment. If you cannot follow up with your doctor within 1 week please return to the Emergency Department for any urgent issues. 2) Please keep the dressing applied to your fistula until you follow up with your Renal specialist. 3) If you have any worsening of symptoms or any other concerns please return to the ER immediately. Return if worsening symptoms including fevers, headache, vomiting, visual or hearing disturbances, abdominal pain, chest pain, shortness of breath, syncope, dehydration, inability to take things by mouth/vomiting, altered mental status, or worsening concerning symptoms. 4) Please continue taking your home medications as directed. - Post Discharge Activity
--- NOTE | 2018-11-26 19:19 | PDOC ---
Documentation entered by Seun Fletcher SCRIBE, acting as scribe for Cheikh Garcia MD. Cheikh Garcia MD: This documentation has been prepared by the Chance contreras Nirvannie, SCRIBE, under my direction and personally reviewed by me in its entirety. I confirm that the documentation accurately reflects all work, treatment, procedures, and medical decision making performed by me. Attending Attestation - Resident Resident Name: James Gonzalesel - ED Attending Attestation I have performed the following: I have examined & evaluated the patient, The case was reviewed & discussed with the resident, I agree w/resident's findings & plan - HPI HPI: 11/27/18 02:14 78-year-old male with multiple comorbidities brought in from hemodialysis for a bleeding right upper extremity AV fistula. Patient completed a full 3 hour session of hemodialysis prior to arrival. - Physicial Exam PE: 11/26/18 18:09 Patient is awake and alert, hemodynamically stable, in no distress Normocephalic and atraumatic PERRLA, EOMI CTA Right upper extremity AV fistulas noted with palpable distal and proximal thrill with minimal amount of active bleeding. - Medical Decision Making 11/26/18 18:13 78-year-old male with multiple comorbidities, on aspirin and Plavix presents with minimal amount of bleeding from the right AV fistula after completion of a full hemodialysis session. In the ER, patient is awake and alert, in the dynamically stable. Palpable thrill is noted proximally and distally at the AV fistula. Minimal amount of oozing is noted. Surgicel and gauze dressing applied. Will observe. Likely discharge. 11/26/18 19:09 Hemostasis achieved. Patient hemodynamically stable. We'll discharge
[2018-11-26 19:34] VITALS: BP 114/56; PULSE 86
== END 2018-11-26 21:44 | disposition home or self-care (01) ==
LOC: JER 17:23
DX: T82.838A Hemorrhage due to vascular prosthetic devices, implants and grafts, initial encounter (principal); I12.0 Hypertensive chronic kidney disease with stage 5 chronic kidney disease or end stage renal disease; N18.6 End stage renal disease; N17.8 Other acute kidney failure; Z99.2 Dependence on renal dialysis; I48.91 Unspecified atrial fibrillation; Z79.01 Long term (current) use of anticoagulants; Z79.82 Long term (current) use of aspirin; F41.9 Anxiety disorder, unspecified; F03.90 Unspecified dementia, unspecified severity, without behavioral disturbance, psychotic disturbance, mood disturbance, and anxiety; Z85.038 Personal history of other malignant neoplasm of large intestine; Z85.46 Personal history of malignant neoplasm of prostate
CPT/HCPCS: 99282-25